=== PATIENT | female | born 1960 | race Caucasian/White ===

== ENCOUNTER 2018-01-07 11:50 | Emergency (ER) | payer BC, SELFPAY ==
[2018-01-07] VITALS (7 sets, daily range): BP systolic 121–138; BP diastolic 61–87; PULSE 70–85; RESP 14–22; TEMP 36.9; O2SAT 89–94
--- NOTE | 2018-01-07 12:07 | ED.GENADUL ---
Disposition Clinical Impression: COPD with exacerbation, Seasonal allergies Disposition: AGAINST MEDICAL ADVICE Condition: Fair Instructions: COPD (Chronic Obstructive Pulmonary Disease) (ED) Additional Instructions: Use the inhaler as needed and directed. Take the steroids until finished. Follow-up with your scheduled appointment with her primary care doctor in 2 weeks. Return immediately to the emergency department any worsening or new concerning symptoms. Prescriptions: Albuterol [Proair Hfa] 2 puff IH Q4H PRN PRN #1 inh PRN Reason: Prednisone 20 mg PO DIRECTED #12 tablet Medical Decision Making - Lab Data Results reviewed for labs ordered during visit: Yes 01/07/18 12:18 EKG shows normal sinus rhythm at 86 with normal axis, frequent PVCs, no STEMI. Nondiagnostic EKG. - Radiology Data Chest x-ray visualized and interpreted by myself in conjunction with radiology: Small left-sided pleural effusion, no other acute process - Medical Decision Making May Carolyn is a 57-year-old woman with a history of hypertension, hyperlipidemia, everyday smoker presenting to the emergency department with episode of lightheadedness, nausea, shortness of breath that resolved after she saw her PCP and was placed on oxygen when she was found to be hypoxic in the low 80s on room air. No history of O2 requirement. On exam patient is well and nontoxic appearing. Her lungs are clear to auscultation. She is satting 94-95% on 2 L of oxygen by nasal cannula. Her oxygen drops to 86% with good waveform when taken off of oxygen. Concern for pneumonia versus COPD versus PE versus other. Doubt ACS. Exam/history not consistent with sepsis, acute aortic pathology. Plan for EKG, chest x-ray, screening labs, telemetry. Will monitor and reassess. D-dimer elevated. Plan for CT chest. Trial of room air, and Pt's O2 sat drops to 86%. Pt feels somewhat more SOB with removal of O2. Pt placed back on O2. Lungs remain CTAB. CT chest shows COPD, o/w neg. Plan for trial duoneb, admission. Pt signed out to Dr. Gar at shift change with trial duoneb, admission pending. Clinical Impression: hypoxia Disposition: still a patient History of Present Illness - General Chief complaint: SOB Stated complaint: PR. VARELA Time Seen by Provider: 01/07/18 12:04 Source: patient, RN notes reviewed Mode of arrival: ambulatory Limitations: no limitations - History of Present Illness Initial comments: Kayla Leon is a 7-year-old man with history of hypertension, hyperlipidemia presenting to the emergency department with hypoxia. Patient reports that she was seeing her primary care doctor today in follow-up for chronic back pain that she has had over a year that is unchanged. She saw her PCP, and then went to the pharmacy to get her prescription filled. She was carrying a grocery bag and walking when all of a sudden she began to feel very lightheaded, nauseous, and short of breath. Patient reports that she return to her PCPs office, where she was found to be hypoxic in the low 80s on room air. She was started on 2 L of oxygen by nasal cannula, and her O2 sats improved into the low 90s and she was sent to the emergency department. Patient reports that she feels somewhat short of breath, but otherwise feels in her usual state of health. She has no pain other than her chronic back pain that is unchanged. She has had a cough for the past 2 weeks without fever. No nausea, vomiting, diarrhea. Has been eating and drinking normally. No recent travel. Never had similar symptoms in the past. - Related Data Acetaminophen 500 mg PO PRN 09/03/12 Diphenhydramine HCl [Benadryl] 25 mg PO DAILY PRN 08/14/16 Aspirin [Aspir 81] 81 mg PO DAILY tab 11/02/16 Metoprolol [Lopressor] 50 mg PO BID 90 Days #90 tab 09/06/17 Levothyroxine Sodium [Synthroid] 50 mcg PO DAILY 30 Days #30 tab-cap 11/09/17 Amlodipine/Valsartan [Amlodipine-Valsartan 5-160 mg] 1 each PO DAILY #90 tab 11/29/17 Albuterol [Proair Hfa] 2 puff IH Q4H PRN PRN #1 inh 01/07/18 Gabapentin 300 mg PO BID 21 Days #42 tab-cap 01/07/18 Prednisone 20 mg PO DIRECTED #12 tablet 01/07/18 Allergies Allergy/AdvReac Type Severity Reaction Status Date / Time hydrochlorothiazide Allergy Severe RASH Unverified 01/09/18 17:53 morphine Allergy Severe Unverified 01/09/18 17:53 simvastatin Allergy Intermediate rash Unverified 01/09/18 17:53 Penicillins Allergy Unknown Unverified 01/09/18 17:53 CANNABINOID Allergy Unknown Swelling/Ed Uncoded 09/20/15 15:26 hans Review of Systems Constitutional: denies: fever Eyes: denies: eye pain ENT: denies: ear pain, throat pain, dental pain Respiratory: cough, shortness of breath Cardiovascular: denies: chest pain, edema, syncope Endocrine: denies: increased hunger, increased thirst Gastrointestinal: nausea. denies: abdominal pain, vomiting, diarrhea Musculoskeletal: back pain (Chronic and unchanged). denies: arthralgia, myalgia Skin: denies: rash Neurological: denies: headache, weakness, numbness Past Medical History - Past Medical History Medical history: hyperlipidemia, hypertension - Social History Smoking status: current everyday smoker Alcohol use: heavy (2 beers per day) Drug use: none General Exam - General Limitations: no limitations General appearance: alert, in no apparent distress, other (Pleasant, well and nontoxic appearing, conversing normally) - Head Head exam: Present: atraumatic, normocephalic, normal inspection - Eye Eye exam: Absent: scleral icterus, conjunctival injection Pupils: Absent: irregular, unequal, miosis, mydriatic - ENT ENT exam: Present: mucous membranes moist - Neck Neck exam: Present: normal inspection - Respiratory Respiratory exam: Present: normal lung sounds bilaterally. Absent: respiratory distress, accessory muscle use - Cardiovascular Cardiovascular Exam: Present: regular rate, normal rhythm, normal heart sounds - Extremities Exam Extremities exam: Present: normal inspection. Absent: pedal edema, calf tenderness - Back Exam Back exam: Present: normal inspection. Absent: rash noted - Neurological Exam Neurological exam: Present: alert, other (Grossly nonfocal, normal tone). Absent: altered - Psychiatric Psychiatric exam: Present: normal affect, normal mood - Skin Skin exam: Present: warm, dry, intact, normal color. Absent: rash Course Vital Signs - 24 hr 01/07/18 12:00 Temperature 99.3 C H Pulse 70 Respiratory 18 Rate Blood Pressure 121/61 Pulse Oximetry 94 L
--- NOTE | 2018-01-07 12:46 | DI.REPORT_ITS ---
SYMPTOMS/DIAGNOSIS: SHORTNESS OF BREATH AP AND LATERAL CHEST: Comparison 09/03/17. The heart size and pulmonary vasculature are within normal limits. There is a tiny left pleural effusion. There is no evidence of a right pleural effusion. No pneumothorax is present. The lungs are clear. The bones appear intact. IMPRESSION: Tiny left pleural effusion.
[2018-01-07 13:07] LABS: Lactate-non-spesis 1.9 mmol/L (0.6-1.4)
[2018-01-07 13:14] LABS: Abs Immature Grans 0.02 k/cumm (0.0-0.09); Absolute Basophil Count 0.02 k/cumm (0.0-0.2); Absolute Lymphocyte Count 1.32 k/cumm (1.2-3.4); Absolute Monocyte Count 0.73 k/cumm (0.11-0.7); Absolute Neutrophil Count 5.53 k/cumm (1.2-6.7); Basophils % 0.3; Eosinophils % 1.3; HCT 35.6 % (36.0-46.0); HGB 12.3 g/dL (12.0-15.5); Immature Grans % 0.3; Lymphocytes % 17.1; Mean Corp. HGB Concentration 34.6 g/dL (32.0-36.0); Mean Corpuscular Hemoglobin 38.3 pg (27.0-33.0); Mean Corpuscular Volume 110.9 fL (80-95); Mean Platelet Volume 9.7 fL (8.0-11.0); Monocytes % 9.5; Neutrophils % 71.5; Platelet Count 181 x1000/uL (130-400); RBC 3.21 m/cumm (4.00-5.20); RBC Distribution Width 12.9 % (11.7-14.6); White Blood Cell Count 7.72 k/cumm (4.4-10.8)
[2018-01-07 13:33] LABS: ALT 40 U/L (12-78); AST 57 U/L (15-37); Albumin 3.6 g/dL (3.4-5.0); Alkaline Phosphatase 86 U/L (46-116); Anion Gap 6.3 mmol/L (3-11); BUN 9 mg/dL (7-18); Bilirubin, Total 0.5 mg/dL (0.2-1.0); CO2 31.7 mmol/L (21.0-32.0); Calcium 8.6 mg/dL (8.5-10.1); Chloride 94 mmol/L (98-107); Glucose 169 mg/dL (70-100); NT-proBNP 545 pg/mL; Potassium 3.1 mmol/L (3.5-5.1); Sodium 132 mmol/L (136-145); Total Protein 6.7 g/dL (6.4-8.2)
[2018-01-07 13:47] LABS: Troponin I < 0.02 ng/mL (0.00-0.06)
[2018-01-07 13:54] LABS: Diff Comment Diff Reviewed; Macrocytosis 2+
[2018-01-07 14:00] LABS: D-Dimer 856 ng/mlFEU (<500)
--- NOTE | 2018-01-07 14:03 | DI.RPTCT_ITS ---
SYMPTOMS/DIAGNOSIS: SHORTNESS OF BREATH, HYPOXIA CT SCAN OF THE CHEST: CT angiography was performed with multi slice acquisition and multi planar and 3D reconstruction. CT scan of the chest was performed according to the pulmonary embolus protocol. There are no priors for comparison. There is no evidence of a pulmonary embolus. The thoracic aorta is intact. No evidence of aneurysm or dissection is seen. The heart size is within normal limits. No significant pericardial effusion is seen. No evidence of right ventricular dysfunction is present. Coronary artery calcifications are seen. No significant axillary, mediastinal or hilar adenopathy is present. No pleural effusion or pneumothorax is identified. Moderate central lobular emphysematous changes are present in the lungs. No focal infiltrates are seen. No pulmonary nodules are identified. The tracheobronchial tree is unremarkable. There are mild atelectatic changes or scarring in the left lung base. Moderate degenerative changes are seen in the spine. There is a mild right convex curvature of the thoracic spine. IMPRESSION: 1. No evidence of a pulmonary embolus, thoracic aortic dissection or aneurysm. 2. Moderate COPD. The findings were discussed with the Emergency Department and Dr. Saba Edmond on the date of the examination.
[2018-01-07] MEDS: Omnipaque 350 MG/ML 100 ML BTL IJ (14:49)
[2018-01-07 14:56] LABS: Bilirubin Negative (Negative); Blood Negative (Negative); Clarity Clear; Glucose Negative (Negative); Ketones Negative (Negative); Leukocyte Esterase Trace (Negative); Nitrite Negative (Negative); Specific Gravity 1.015 (1.005-1.025)
[2018-01-07 15:03] LABS: Bacteria Few HPF (Negative); C & S Indicated? Yes; Casts Negative LPF (Negative); Crystals Negative HPF (Negative); Epithelial Cells Few HPF (Negative); Mucus Trace (Negative); RBC Negative (0-2); WBC 0-2 HPF (0-5)
[2018-01-07] MEDS: Albuterol/Ipratropium 3 ML UPD VIAL UPD (15:18)
--- NOTE | 2018-01-07 15:53 | ED.FU_ITS ---
Disposition Clinical Impression: COPD with exacerbation, Seasonal allergies Disposition: AGAINST MEDICAL ADVICE Condition: Fair Instructions: COPD (Chronic Obstructive Pulmonary Disease) (ED) Additional Instructions: Use the inhaler as needed and directed. Take the steroids until finished. Follow-up with your scheduled appointment with her primary care doctor in 2 weeks. Return immediately to the emergency department any worsening or new concerning symptoms. Prescriptions: Albuterol [Proair Hfa] 2 puff IH Q4H PRN PRN #1 inh PRN Reason: Prednisone 20 mg PO DIRECTED #12 tablet Medical Decision Making - Lab Data Laboratory Tests 01/07/18 01/07/18 01/07/18 12:50 12:50 12:50 WBC 7.72 RBC 3.21 L Hgb 12.3 Hct 35.6 L MCV 110.9 H MCH 38.3 H MCHC 34.6 RDW 12.9 Plt Count 181 MPV 9.7 Immature Gran % 0.3 Neutrophils % 71.5 Lymphocytes % 17.1 Monocytes % 9.5 Eosinophils % 1.3 Basophils % 0.3 Absolute Neutrophils 5.53 Absolute Lymphocytes 1.32 Absolute Monocytes 0.73 H Absolute Eosinophils 0.10 Absolute Basophils 0.02 Differential Comment Diff reviewed RBC Morphology See below Macrocytosis 2+ D-Dimer Sodium 132 L Potassium 3.1 L Chloride 94 L Carbon Dioxide 31.7 Anion Gap 6.3 BUN 9 Creatinine 0.80 Estimated GFR/1.73 m2 >= 60.00 Glucose 169 H Lactate 1.9 H Calcium 8.6 Total Bilirubin 0.5 AST 57 H ALT 40 Alkaline Phosphatase 86 Troponin I < 0.02 NT-Pro-B Natriuret Pep 545 H Total Protein 6.7 Albumin 3.6 Urine Color Urine Clarity Urine pH Ur Specific [place] Urine Protein Urine Ketones Urine Blood Urine Nitrite Urine Bilirubin Urine Urobilinogen Ur Leukocyte Esterase Urine RBC Urine WBC Ur Epithelial Cells Urine Crystals Urine Bacteria Urine Casts Urine Mucus Ur Culture Indicated? Urine Glucose 01/07/18 01/07/18 12:50 14:25 WBC RBC Hgb Hct MCV MCH MCHC RDW Plt Count MPV Immature Gran % Neutrophils % Lymphocytes % Monocytes % Eosinophils % Basophils % Absolute Neutrophils Absolute Lymphocytes Absolute Monocytes Absolute Eosinophils Absolute Basophils Differential Comment RBC Morphology Macrocytosis D-Dimer 856 H Sodium Potassium Chloride Carbon Dioxide Anion Gap BUN Creatinine Estimated GFR/1.73 m2 Glucose Lactate Calcium Total Bilirubin AST ALT Alkaline Phosphatase Troponin I NT-Pro-B Natriuret Pep Total Protein Albumin Urine Color Yellow Urine Clarity Clear Urine pH 8.0 Ur Specific [place] 1.015 Urine Protein Negative Urine Ketones Negative Urine Blood Negative Urine Nitrite Negative Urine Bilirubin Negative Urine Urobilinogen 4.0 H Ur Leukocyte Esterase Trace H Urine RBC Negative Urine WBC 0-2 Ur Epithelial Cells Few Urine Crystals Negative Urine Bacteria Few Urine Casts Negative Urine Mucus Trace Ur Culture Indicated? Yes Urine Glucose Negative - EKG Data -: EKG Interpreted by Me 01/07/18 1130: 86 bpm. Sinus. Frequent PVCs. No acute ST elevation or depression. 01/07/18 1210: 86 bpm. Sinus. - Radiology Data Radiology results: report reviewed, image reviewed Chest x-ray: Tiny left pleural effusion CT chest: Moderate COPD. No PE, dissection, or aneurysm. - Medical Decision Making Please see Dr. Edmond's note for initial presentation, exam and plan. Patient is a 57-year-old female with a history of hypertension and long- standing tobacco abuse who presents for shortness of breath and lightheadedness today. She was seen at PCP office today for chronic back pain and was found to have hypoxia in the low 80s and was sent here for evaluation. Patient's workup included a negative troponin, potassium 3.1, and elevated d- dimer, a chest x-ray which noted a tiny left pleural effusion and a CT chest which was negative for PE. Patient was also given a neb treatment per Dr. Edmond. Plan upon endorsement was to follow-up after neb treatment and possible admission for hypoxia and further determination for etiology of shortness of breath. Prior to my evaluation, patient had requested nurse to remove the IV and that she wanted to go home. Her lung sounds appear diminished throughout but there is no wheezing, crackles or rales. She is speaking in full sentences. She takes off the nasal cannula in the room, and her oxygen saturation decreases from 96% to 88%. I explained to patient that her long-standing tobacco abuse and CT chest which noted moderate COPD, that her symptoms can be due to a COPD exacerbation. Patient states that she thinks her symptoms are due to allergies. I explained to patient that allergies or viral process, can exacerbate COPD but her symptoms can be more likely due to a COPD exacerbation. I offered patient another neb treatment but she declines. She is also refusing to stay for second troponin and evaluation for home oxygen for respiratory therapy. I explained to patient with her oxygen level still in the mid 80s, we would recommend further observation and consideration of admission. Patient is refusing this. The risks of disability due to a possible serious cardiopulmonary etiology were explained and patient fully understands and demonstrates capacity to make decisions. AMA form signed. Given a dose of p.o. potassium. We will send home with a prescription for prednisone and albuterol. Patient initially declined these prescription for prednisone stating it had not worked in the past for a rash that she had. I explained that with COPD, a short course of steroids can likely help her symptoms. I also explained to patient that without further evaluation and admission, we cannot fully determine the etiology of her shortness of breath and that COPD is only 1 of the considerations. He has normal white blood cell count, no fever and what she describes her normal smoker's cough, so we will hold on antibiotics at this time. Temp reported in error but pt was afebrile. Care Signed Out By:: Dr. Bryon Edmond - Vital Signs Recent Vitals - 8H: Vital Signs - 8 hr 01/07/18 01/07/18 01/07/18 12:00 12:18 13:08 Temperature 210.7 F H Pulse 70 Respiratory 18 22 18 Rate Blood Pressure 121/61 Pulse Oximetry 94 L 89 L 01/07/18 13:10 Temperature Pulse Respiratory 18 Rate Blood Pressure Pulse Oximetry 89 L - Continuation of Care Continuation of Care Plan: Case endorsed to follow-up on patient response to neb treatment and plan for possible admission for hypoxia if symptoms do not improve and continued hypoxia.
[2018-01-07] MEDS: predniSONE 20 MG TAB 60 MG PO (16:04)
[2018-01-07] MEDS: Potassium Chloride 20 MEQ TABCR 40 MEQ PO (16:04)
--- NOTE | 2018-01-08 14:00 | PDOC.ERCMPRO ---
Care Management Progress Note 01/08-Kayla left the emergency department AMA last evening. This CM tried reaching out to Kayla but there was no answer on either of her numbers nor was their an answering machine.
== END 2018-01-07 16:38 | disposition left against medical advice (07) ==
PROVIDERS: Student in an Organized Health Care Education/Training Program; Emergency Provider Physician Assistant; PCP Family Medicine
DX: J44.1 Chronic obstructive pulmonary disease with (acute) exacerbation (principal); J30.2 Other seasonal allergic rhinitis; R09.02 Hypoxemia; J90 Pleural effusion, not elsewhere classified; R79.1 Abnormal coagulation profile; I10 Essential (primary) hypertension; F17.210 Nicotine dependence, cigarettes, uncomplicated; Z53.29 Procedure and treatment not carried out because of patient's decision for other reasons
CPT/HCPCS: 36415; 71275; 80053; 93005; 94640; 99285; 71046; 81003; 81015; 83605; 83880; 84484; 85025; 85379; 87086; 93010; J3490; J7512; J7620

== ENCOUNTER 2018-02-18 10:33 | Outpatient (CLI) | payer BC, SELFPAY ==
[2018-02-18 12:21] LABS: TSH (W/Ref FT4) 10.82 uIU/mL (0.358-3.74)
[2018-02-18 12:37] LABS: FREE T4 0.87 ng/dL (0.76-1.46)
== END 2018-02-18 10:53 ==
PROVIDERS: PCP Family Medicine; Visit Provider Family Medicine
DX: E03.9 Hypothyroidism, unspecified (principal)
CPT/HCPCS: 36415; 84439; 84443

== ENCOUNTER 2018-03-18 00:48 | Outpatient (CLI) | payer BC, SELFPAY ==
--- NOTE | 2018-03-18 10:27 | DI.MRI_ITS ---
SYMPTOMS/DIAGNOSIS: LEFT LEG PAIN, ? SCIATICA, NEUROPATHY, G62.9 MRI OF THE LUMBAR SPINE: Routine noncontrast examination. No priors for comparison. The conus medullaris has a normal appearance and location. At L 5 - S 1 there is no focal disc herniation, central spinal canal or neural foraminal stenosis. At L 4 - 5 there are degenerative endplate signal changes. There is loss of signal of the disc and a mild diffuse disc bulge. No central spinal canal or nerve root compression is seen. No neural foraminal stenosis is present. At L 3 - 4 there is a mild diffuse disc bulge. No focal disc herniation or central spinal canal stenosis is seen. There is disc desiccation present. There is mild narrowing of the left neural foramen but no compression of the exiting nerve root is seen. No right neural foraminal stenosis is seen. Mild degenerative endplate signal changes are present. At L 2 - 3 there are mild degenerative endplate signal changes and disc desiccation. No focal disc herniation, central spinal canal or neural foraminal stenosis is seen. At L 1 - 2 there is no focal disc herniation, central spinal canal or neural foraminal stenosis. Apart from the degenerative endplate signal changes the marrow signal is within normal limits. IMPRESSION: 1. No focal disc herniation, central spinal canal or nerve root compression is seen in the lumbar spine. 2. Multi-level degenerative changes in the lumbar spine.
== END 2018-03-18 01:08 ==
PROVIDERS: PCP Family Medicine; Visit Provider Psychiatry & Neurology Neurology
DX: M79.605 Pain in left leg (principal); M47.26 Other spondylosis with radiculopathy, lumbar region; G62.89 Other specified polyneuropathies
CPT/HCPCS: 72148

== ENCOUNTER 2018-04-08 10:55 | Outpatient (REF) | payer BC, SELFPAY | END 2018-04-08 11:15 | LOC: LBN 10:55 | PROVIDERS: PCP Family Medicine; Visit Provider Family Medicine | DX: Z11.59 Encounter for screening for other viral diseases (principal); Z78.9 Other specified health status | CPT/HCPCS: 87449 ==

== ENCOUNTER 2018-04-08 11:17 | Emergency (ER) | payer BC, SELFPAY ==
[2018-04-08 11:31] VITALS: BP 160/97; PULSE 101; RESP 16; TEMP 37.1; O2SAT 100
--- NOTE | 2018-04-08 11:40 | DI.CT_ITS ---
SYMPTOMS/DIAGNOSIS: DIFFUSE ABDOMINAL PAIN, LEFT UPPER QUADRANT AND LEFT LOWER QUADRANT > RIGHT UPPER QUADRANT AND RIGHT LOWER QUADRANT CT OF THE ABDOMEN AND PELVIS: There are no prior comparison exams. Images were performed from the lung bases through the ischial tuberosities after oral and IV contrast. The exam is somewhat limited by patient motion. The lung bases show mild respiratory motion. The heart size is normal. The liver, gallbladder, spleen and adrenals are unremarkable. The pancreas appears somewhat atrophic. There are a few small renal cysts. There is no hydronephrosis. There is mild diffuse wall thickening of the urinary bladder. No focal bladder mass or calculi are seen. There are numerous diverticula in the sigmoid colon. Diverticula are also seen elsewhere in the colon. The appendix appears normal. There is no evidence of diverticulitis. No small bowel dilatation is seen. The aorta shows calcification, but there is no evidence of an aneurysm. There are degenerative changes of the lumbar spine. The uterus and ovaries appear postmenopausal. IMPRESSION: Diverticulosis without evidence of diverticulitis. There is mild wall thickening of the urinary bladder. Clinical correlation is recommended.
--- NOTE | 2018-04-08 11:42 | W.ED.GENAD ---
Discharge Plan Disposition Patient Disposition: HOME Condition: Improving Discharge Details Chief Complaint: Nausea/Vomit/Diar Clinical Impression: Vomiting and diarrhea, UTI (urinary tract infection) Primary Care Provider: Chidi Mccormack ED Provider: Carla Gar Home Meds and New Rx's Prescriptions: New prochlorperazine maleate [Compazine] 10 mg tablet 10 mg PO Q8H PRN (Reason: nausea and vomiting) Qty: 6 RF: 0 ciprofloxacin HCl [Cipro] 500 mg tablet 500 mg PO BID 7 Days Qty: 14 RF: 0 Continue gabapentin 300 mg capsule 300 mg PO BID Qty: 90 RF: 11 acetaminophen 500 MG tablet 500 mg PO PRN RF: 0 diphenhydramine HCl [Benadryl] 25 MG capsule 25 mg PO DAILY PRNRF: 0 aspirin [Aspir-81] 81 MG tablet,delayed release (DR/EC) 81 mg PO DAILY RF: 0 amlodipine-valsartan 1 EACH tablet 1 ea PO DAILY Qty: 90 RF: 3 levothyroxine [Synthroid] 75 mcg tablet 75 mcg PO DAILY Qty: 90 RF: 3 metoprolol tartrate 50 mg tablet 50 mg PO BID Qty: 180 RF: 3 Discharge Instructions Instructions: Urinary Tract Infection in Women (ED), Acute Nausea and Vomiting (ED), Acute Diarrhea (ED) Additional Instructions: Drink plenty of fluids and get plenty of rest. Take the antinausea medication as needed and directed. Take the antibiotics until finished. Call your primary care doctor tomorrow to schedule follow-up appointment for reevaluation. Return immediately to the emergency department any worsening or new concerning symptoms. Discharge Data Discharge Date/Time-TO BE ENTERED AT DEPARTURE: 04/08/18 15:39 Discharge Physician: Carla Gar Medical Decision Making <Mickey Burrell NP - Last Filed: 04/09/18 10:18> Imaging and lab focused on wide differential to include acute pancreatitis, cholecysitis, diverticulitis, and appendicitis. Explained to patient she would be here awhile to complete testing. Will administer fluids and Zofran. CT scan with oral and IV contrast if kidneys support. <Carla Gar DO - Last Filed: 04/08/18 15:12> Please see Monroe Burrell's notes for initial presentation, exam and plan. Patient is a 57-year-old female who presents for generalized fatigue and weakness, diffuse body pain, vomiting and diarrhea over the past week. She does admit to chronic urinary frequency and concentrated urine . She admits to tactile fevers. She last vomited at 9 AM this morning and last episode of diarrhea here in the ED. Patient states she feels hungry and would like to eat. Blood pressure hypertensive, pulse 101, A. fib. Upon my initial interview room, patient requested her IV be taking on stating that she plans to go home today. Discussed with patient that her imaging is still pending. Labs reviewed and note a normal white blood cell count, hemoglobin. Sodium 128. Anion gap 11. Creatinine 0.63. Troponin negative. Lipase normal. Urinalysis notes greater than 50 WBCs, large leukocyte esterase, packed bacteria and few epithelial cells. Based on patient's symptoms patient, will treat for bladder infection. CT still pending. Will give another bolus IV fluids as well as a dose of Toradol and reassess. EKG notes a rate of 98, sinus, no acute ST elevation or depression, QTC 431. QRS 78. 1455 --CT notes diverticulosis without diverticulitis. There is mild bladder wall thickening which could correlate with the cystitis. Patient is requesting her IV out and would like to go home. Patient was given 2 L of normal saline. Patient was noted to have a sodium of 128, review of previous labs noted sodium 132. Patient states she feels better. Will treat for possible UTI versus pyelonephritis. Patient is allergic to penicillin and there is an interaction with Bactrim with her meds. Will give a dose of Cipro here and prescription for Compazine for home due to interaction of Cipro and Zofran. Patient instructed to follow-up with primary care doctor for reevaluation and return here if worse. HPI <Mickey Burrell NP - Last Filed: 04/09/18 10:18> General Date/Time Provider Initiated Documentation: 04/08/18 11:23. Limitations to Documentation: no limitations. Information obtained by: patient. History of Present Illness 57 year old F presents to the emergency department with the chief complaint of N/V/D, described as mild, HPI Narrative: 57 y/o female here with c/o N/V/D, abdominal pain, and generally not feeling well for a week. She was evaluated by PCP today and exam and history was concerned with acute abdomen. She reports to me one week of not feeling well. Symptoms include, abdominal pain, fever, dysuria, N/V/D, and body aches. She admits to drinking two beers a day but not able to drink for last week do to the N/V. She has missed work do to this illness at [employer]. Related Data Home Medications Medication Instructions Recorded Confirmed acetaminophen 500 mg PO PRN 09/03/12 04/08/18 diphenhydramine HCl [Benadryl] 25 mg PO DAILY PRN 08/14/16 04/08/18 aspirin [Aspir-81] 81 mg PO DAILY tab 11/02/16 04/08/18 amlodipine-valsartan 1 ea PO DAILY #90 tab 11/29/17 04/08/18 gabapentin 300 mg capsule 300 mg PO BID #90 tab-cap 03/12/18 04/08/18 levothyroxine 75 mcg tablet 75 mcg PO DAILY #90 tab 03/28/18 04/08/18 metoprolol tartrate 50 mg tablet 50 mg PO BID #180 tab 03/28/18 04/08/18 ciprofloxacin HCl [Cipro] 500 mg PO BID 7 Days #14 tab 04/08/18 prochlorperazine maleate 10 mg PO Q8H PRN #6 tab 04/08/18 [Compazine] Previous Rx's Medication Instructions Recorded amlodipine-valsartan 1 ea PO DAILY #90 tab 11/29/17 gabapentin 300 mg capsule 300 mg PO BID #90 tab-cap 03/12/18 levothyroxine 75 mcg tablet 75 mcg PO DAILY #90 tab 03/28/18 metoprolol tartrate 50 mg tablet 50 mg PO BID #180 tab 03/28/18 ciprofloxacin HCl [Cipro] 500 mg PO BID 7 Days #14 tab 04/08/18 prochlorperazine maleate 10 mg PO Q8H PRN #6 tab 04/08/18 [Compazine] Allergies Allergy/AdvReac Type Severity Reaction Status Date / Time hydrochlorothiazide Allergy Severe RASH Verified 04/08/18 11:41 morphine Allergy Severe stops Verified 04/08/18 11:41 breathing simvastatin Allergy Intermediate rash Verified 04/08/18 11:41 Penicillins Allergy Unknown unknown Verified 04/08/18 11:41 CANNABINOID Allergy Unknown Swelling/Ed Uncoded 04/08/18 11:41 hans General Stated Complaint: Nausea/Vomit/Diar JOLENE: 3 Review of Systems <Mickey Burrell NP - Last Filed: 04/09/18 10:18> Constitutional Reports body ache(s), Reports chills, Reports fever(s) and Reports poor appetite Eyes Reports system reviewed and no additional complaints, except as docu ENT Reports system reviewed and no additional complaints, except as docu Cardiovascular Reports system reviewed and no additional complaints, except as docu Respiratory Reports system reviewed and no additional complaints, except as docu Gastrointestinal Reports abdominal pain, Denies hematochezia, Denies coffee ground emesis, Reports diarrhea, Reports nausea, Reports vomiting and Denies hematemesis Musculoskeletal Reports myalgias and Reports arthralgias Neurologic Reports system reviewed and no additional complaints, except as docu Psychiatric Reports system reviewed and no additional complaints, except as docu Hematologic/Lymphatic Reports system reviewed and no additional complaints, except as docu Exam <Mickey Burrell NP - Last Filed: 04/09/18 10:18> Const General: cooperative Nutritional Appearance: cachectic Orientation: alert, awake and oriented x3 Other: Tries to be jocular in her history telling. [facility] Head: normal to inspection and atraumatic Ears: hearing grossly normal bilaterally, external ears normal and TM's normal bilaterally General nose exam: external nose normal and nares normal Mouth: lip normal, tongue normal, mucous membranes dry and moist mucous membranes abnormal Throat: posterior oropharynx abnormal erythema Eyes General: appearance normal, both eyes and all related structures Neck Neck: normal visual inspection, full ROM and no lymphadenopathy Resp Effort & Inspection: normal respiratory effort Auscultation: clear to auscultation bilaterally Cardio Jugular venous pressure: no JVD Rate: regular rate Rhythm: regular rhythm Heart Sounds: S1 normal, S2 normal and no murmurs GI Inspection: non-distended Palpation: soft and tender (Left>R) in the LLQ, in the RLQ, in the LUQ, in the RUQ and at McBurney's point; Harrison's sign negative and with no rebound tenderness Auscultation: hyperactive bowel sounds Skin General skin exam: no rashes or lesions noted Neuro General: alert, awake and oriented x3 Cognition: normal cognition Speech: speech normal Gait: normal gait Extrem General: normal to inspection, full ROM and normal capillary refill Psych Appearance: grossly normal Mental Status: mental status grossly normal Speech and Movement: speech and movement normal Mood: congruent mood Affect: normal affect Attitude: cooperative Thought Process: normal Thought Content: normal Insight: insight good Judgment: judgment good Course <Mickey Burrell NP - Last Filed: 04/09/18 10:18> Vital Signs Temperature 37.1 C 04/08/18 11:31 Pulse 101 H 04/08/18 11:31 Respiratory Rate 16 04/08/18 11:31 Blood Pressure 160/97 H 04/08/18 11:31 Pulse Oximetry 100 04/08/18 11:31 Temperature 37.1 C 04/08/18 11:31 Temperature Source Skin 04/08/18 11:31 Pulse 101 H 04/08/18 11:31 Respiratory Rate 16 04/08/18 11:31 Respiratory Effort Non-Labored 04/08/18 11:31 Blood Pressure 160/97 H 04/08/18 11:31 Blood Pressure Position Sitting 04/08/18 11:31 Pulse Oximetry 100 04/08/18 11:31 Oxygen Delivery Method Room Air 04/08/18 11:31 Oxygen Flow Rate 0 04/08/18 11:31 Pain Level 7 04/08/18 11:31 Sign Out <Mickey Burrell NP - Last Filed: 04/09/18 10:18> Sign Out Data: Sign Out Comment: Discussed case with Dr. Gar she agreed to continue care and disposition patient. Last updated by Mickey Burrell NP at 04/08/18 12:00
[2018-04-08] MEDS: Normal Saline 1,000 ML 1000 ML IV ×2 (12:00→13:48)
[2018-04-08 12:05] LABS: Abs Immature Grans 0.02 k/cumm (0.0-0.09); Absolute Basophil Count 0.02 k/cumm (0.0-0.2); Absolute Eosinophil Count 0.02 k/cumm (0.0-0.7); Absolute Monocyte Count 1.08 k/cumm (0.11-0.7); Absolute Neutrophil Count 8.41 k/cumm (1.2-6.7); Basophils % 0.2; Eosinophils % 0.2; HCT 40.8 % (36.0-46.0); HGB 14.3 g/dL (12.0-15.5); Immature Grans % 0.2; Lymphocytes % 11.2; Mean Corpuscular Hemoglobin 37.2 pg (27.0-33.0); Mean Corpuscular Volume 106.3 fL (80-95); Mean Platelet Volume 9.2 fL (8.0-11.0); Neutrophils % 78.2; Platelet Count 267 x1000/uL (130-400); RBC 3.84 m/cumm (4.00-5.20); RBC Distribution Width 12.6 % (11.7-14.6); White Blood Cell Count 10.75 k/cumm (4.4-10.8)
[2018-04-08] MEDS: Ondansetron 4 MG/2 ML VIAL IVP (12:05)
[2018-04-08 12:15] LABS: Lipase 117 U/L (73-393)
[2018-04-08 12:20] LABS: ALT 40 U/L (12-78); AST 52 U/L (15-37); Albumin 4.4 g/dL (3.4-5.0); Alkaline Phosphatase 106 U/L (46-116); Anion Gap 11.3 mmol/L (3-11); BUN 6 mg/dL (7-18); Bilirubin, Total 0.7 mg/dL (0.2-1.0); CO2 27.7 mmol/L (21.0-32.0); CREATININE 0.63 mg/dL (0.55-1.02); Calcium 10.1 mg/dL (8.5-10.1); Chloride 89 mmol/L (98-107); ETHANOL BLOOD 3.6 mg/dL (<3); Glucose 104 mg/dL (70-100); Magnesium 2.1 mg/dL (1.8-2.4); Potassium 4.7 mmol/L (3.5-5.1); Sodium 128 mmol/L (136-145); Total Protein 8.4 g/dL (6.4-8.2)
[2018-04-08 12:27] LABS: Diff Comment RBC Morph Reviewed; Macrocytosis 1+
[2018-04-08 12:29] LABS: Troponin I < 0.02 ng/mL (0.00-0.06)
[2018-04-08 12:34] LABS: Clarity Cloudy; Glucose Negative (Negative); Ketones Negative (Negative); Leukocyte Esterase Large (Negative); Nitrite Negative (Negative); Specific Gravity 1.015 (1.005-1.025)
[2018-04-08 12:35] LABS: Bacteria Packed HPF (Negative); Bilirubin Negative (Negative); Blood Small (Negative); C & S Indicated? Yes; Casts Negative LPF (Negative); Crystals Negative HPF (Negative); Epithelial Cells Few HPF (Negative); Mucus Moderate (Negative); WBC >50 HPF (0-5)
[2018-04-08] MEDS: Omnipaque 350 MG/ML 100 ML BTL IJ (13:12)
[2018-04-08] MEDS: Ketorolac 30 MG/ML VIAL IVP (14:54)
[2018-04-08 15:27] VITALS: BP 160/86; PULSE 96; RESP 12; TEMP 36.2; O2SAT 93
[2018-04-08] MEDS: Ciprofloxacin 500 MG TAB PO (15:27)
== END 2018-04-08 15:39 | disposition home or self-care (01) ==
PROVIDERS: Nurse Practitioner Family; Emergency Provider Physician Assistant; PCP Family Medicine
DX: R11.2 Nausea with vomiting, unspecified (principal); N39.0 Urinary tract infection, site not specified; B96.20 Unspecified Escherichia coli [E. coli] as the cause of diseases classified elsewhere; I10 Essential (primary) hypertension
CPT/HCPCS: 36415; 80053; 83690; 87077; 93005; 96361; 96374; 99284; 74177; 80320; 81003; 81015; 83735; 84484; 85025; 87086; 87186; 93010; J1885; J2405; J3490

== ENCOUNTER 2018-05-06 09:55 | Emergency (ER) | payer BC, SELFPAY ==
[2018-05-06] VITALS (39 sets, daily range): BP systolic 93–143; BP diastolic 52–108; PULSE 68–96; RESP 12–18; TEMP 36.7; O2SAT 93–100
--- NOTE | 2018-05-06 10:15 | W.ED.GENAD ---
Discharge Plan Disposition Patient Disposition: [facility] Condition: Serious Discharge Details Chief Complaint: AMS/LOC Clinical Impression: Acute hyponatremia, Hypokalemia, Hypomagnesemia Reason For Visit: FORD Primary Care Provider: Chidi Mccormack ED Provider: Neeru De Los Santos Home Meds and New Rx's Prescriptions: No Action gabapentin 300 mg capsule 300 mg PO BID Qty: 90 RF: 11 acetaminophen 500 MG tablet 500 mg PO PRN RF: 0 diphenhydramine HCl [Benadryl] 25 MG capsule 25 mg PO DAILY PRNRF: 0 aspirin [Aspir-81] 81 MG tablet,delayed release (DR/EC) 81 mg PO DAILY RF: 0 amlodipine-valsartan 1 EACH tablet 1 ea PO DAILY Qty: 90 RF: 3 levothyroxine [Synthroid] 75 mcg tablet 75 mcg PO DAILY Qty: 90 RF: 3 metoprolol tartrate 50 mg tablet 50 mg PO BID Qty: 180 RF: 3 prochlorperazine maleate [Compazine] 10 mg tablet 10 mg PO Q8H PRN (Reason: nausea and vomiting) Qty: 6 RF: 0 Discharge Data Discharge Date/Time-TO BE ENTERED AT DEPARTURE: 05/06/18 15:39 Medical Decision Making Patient presents today with chief complaint of altered mental status per friend's report. Brought in via EMS after they found her at home. Patient is alert and oriented x3. However, much of her history is unclear. Per the friends report at the scene, they reported the EMS that she is no longer working secondary to her alcohol abuse. However, the patient is adamant that she has been working yesterday and today. Patient is covered in feces which she reports is typical. She reports that she is covered in feces secondary to working and that this is typical at work. All nursing staff was cleaning the feces off of the patient, they noted a large area of erythema and skin breakdown of the patient's remington-area, her buttock and extending into the inner thighs bilaterally. Patient is unclear as to why this has been there. Reports that she did shower yesterday. Seems to be unaware of her skin changes. Patient was unable to stand without 2 person assist. This will need barrier cream and continued care. Laboratory evaluation significant for sodium of 108. Patient is currently receiving a banana bag. Magnesium and potassium are both low as well which will replenish IV. Still awaiting imaging. However, given the elect light abnormalities, and the patient's current state, she will need to be admitted. Will discuss case with hospitalist. Consulted with hospice regarding the patient's hyponatremia and admission. However, she advised that as we are unable to measure serum osmolality here the patient would need to be transferred to an outside facility so that she may receive hypertonic saline in a safe environment Head CT and chest x-ray reviewed by radiologist. He advises no acute abnormalities Spoke with [facility] regarding transfer who advised that they follow the serum sodium every few hours. They do not follow serum osmolality their facility. Advised that the patient should be replenished with a rate of 8 mEq every 24 hours and then hypertonic saline was indicated in this case. As the patient would not need serum osmolality measurement at the facility, I contacted our hospitalist once again who advised that this is against her practice and that she typically would always follow serum osmolality did not feel comfortable keeping the patient here. Consulted with [facility] once again. Patient has been accepted by Dr. Landers for symptomatic hyponatremia, continued monitoring and hypertonic saline treatment. While awaiting bed conformation, friends came in who advise that patient has not been ableot walk well on the LLE for several months. Has not been able to work for the past 3 weeks. She reports she has had multiple workups for this including imaging witout findings of source of weakness. She reports that she typically attends doctors appointment with the patient but that the patient has been becoming more private and withdrawn in recent weeks. They report she drinks daily but they are unsure of how much patient intakes, also unclear how much she smokes. HPI General Mode of arrival: EMS. Date/Time Provider Initiated Documentation: 05/06/18 10:14. Limitations to Documentation: altered mental status. Information obtained by: patient and EMS. HPI Narrative: Patient is a 57-year-old female, brought in via EMS, with chief complaint of altered mental status. Per EMS report, they were toned out after friends of the patient went to do a welfare check on her, and found her altered. EMS reports that there is a copious amounts of beer cans history about the house. Patient reports that she had 2 beers last night. However, the friends report that she had at least 6 large beers. She reports she only drinks 2 beers a day and only smokes 2 cigarettes a day. Patient has history of chewing tobacco dependence, hyperlipidemia, neuropathy, hyperlipidemia, hypertension, arterial occlusive disease, hypothyroidism. She reports that she feels like shit but is unable to describe what this actually means. She denies any pain. Denies any headache, visual changes, chest pain, shortness of breath. Denies any recent illness. Reports that she has a chronic cough associated with her smoking but denies any recent change in this. Related Data Home Medications Medication Instructions Recorded Confirmed acetaminophen 500 mg PO PRN 09/03/12 05/06/18 diphenhydramine HCl [Benadryl] 25 mg PO DAILY PRN 08/14/16 05/06/18 aspirin [Aspir-81] 81 mg PO DAILY tab 11/02/16 05/06/18 amlodipine-valsartan 1 ea PO DAILY #90 tab 11/29/17 05/06/18 gabapentin 300 mg capsule 300 mg PO BID #90 tab-cap 18 05/06/18 levothyroxine 75 mcg tablet 75 mcg PO DAILY #90 tab 03/28/18 05/06/18 metoprolol tartrate 50 mg tablet 50 mg PO BID #180 tab 03/28/18 05/06/18 prochlorperazine maleate 10 mg PO Q8H PRN #6 tab 04/08/18 05/06/18 [Compazine] Previous Rx's Medication Instructions Recorded amlodipine-valsartan 1 ea PO DAILY #90 tab 11/29/17 gabapentin 300 mg capsule 300 mg PO BID #90 tab-cap 03/12/18 levothyroxine 75 mcg tablet 75 mcg PO DAILY #90 tab 03/28/18 metoprolol tartrate 50 mg tablet 50 mg PO BID #180 tab 03/28/18 prochlorperazine maleate 10 mg PO Q8H PRN #6 tab 04/08/18 [Compazine] Allergies Allergy/AdvReac Type Severity Reaction Status Date / Time hydrochlorothiazide Allergy Severe RASH Verified 05/06/18 11:54 morphine Allergy Severe stops Verified 05/06/18 11:54 breathing simvastatin Allergy Intermediate rash Verified 05/06/18 11:54 Penicillins Allergy Unknown unknown Verified 05/06/18 11:54 CANNABINOID Allergy Unknown Swelling/Ed Uncoded 05/06/18 11:54 hans General Stated Complaint: AMS/LOC JOLENE: 2 Review of Systems Review of Systems Unobtainable due to mental condition [facility] Medical History Hyperlipidemia (Chronic 08/21/12) Neuropathy (Chronic 12/07/16) Hyperlipidemia (Chronic 08/21/12) Foot pain, left (Chronic 12/04/16) Essential hypertension (Chronic 01/22/12) Arterial occlusive disease (Chronic 12/04/16) Hypothyroidism (Chronic) Social History housing: apartment current occupational status: employed current occupation: [employer] [place], [place] pets and animals: Yes pets and animals: cat(s) frequency: 5-6 times per week duration: 15-30 minutes/day Smoking/Tobacco Use Status: Current every day alcohol intake: current alcohol intake frequency: 0-2 drinks per day Alcohol type: beer substance use type: does not use seatbelt use: always drive intox or ride w/ intox driver salesman: No working smoke detector in home: Yes fire extinguisher in home: Yes carbon monox detector in home: Yes Exam Const General: cooperative, comfortable, no acute distress, frail appearing, ill appearing chronically and intoxicated appearing Nutritional Appearance: cachectic and thin HENMT Head: normal to inspection and normocephalic Ears: hearing grossly normal bilaterally, external ears normal and TM's normal bilaterally General nose exam: external nose normal Mouth: oral mucosae normal, tongue normal, No moist mucous membranes abnormal (patient appears dry on exam), no trismus and No restricted motion Eyes General: appearance normal, both eyes and all related structures Visual Willis: normal visual willis by confrontation Alignment and Position: alignment normal Conjunctivae: conjunctivae normal Pupils: PERRL EOM: EOM intact bilaterally Neck Neck: normal visual inspection, full ROM, no lymphadenopathy, no meningeal signs and trachea midline Resp Effort & Inspection: normal respiratory effort, able to speak in complete sentences and no respiratory distress Auscultation: clear to auscultation bilaterally, no rales, no rhonchi and no wheezes Cardio Rate: regular rate Rhythm: regular rhythm Heart Sounds: S1 normal and S2 normal GI Inspection: normal to inspection, non-distended and no large pannus Palpation: soft, no hepatosplenomegaly, not firm, no guarding, not rigid and nontender Auscultation: normal bowel sounds General: other (see skin exam) Back/Spine/Pelvis Back: no CVA tenderness Skin General skin exam: erythema (patient has erythema and skin break down to bilateral inner thighs, buttock) Neuro General: alert, awake, oriented x3 (A&Ox3 but has very unusual thoughts, is confused), gait abnormal, tone abnormal, moves all extremities, no meningeal signs, no focal motor deficits and CN's II-XI intact bilaterally Cognition: abnormal cognition Speech: speech normal Gait: gait abnormal (patient unable to stand unassisted) Motor: muscle tone normal throughout, no pronator drift, no movement abnormalities noted and no fasciculations Sensory Exam: no sensory deficits noted Extrem General: abnormal to inspection (erythema to inner thighs as above), no pedal edema and no calf tenderness Psych Appearance: disheveled Course Vital Signs Temperature 36.7 C 05/06/18 10:05 Pulse 68 05/06/18 10:05 Respiratory Rate 18 05/06/18 10:05 Blood Pressure 143/108 H 05/06/18 10:05 Pulse Oximetry 100 05/06/18 10:05 Temperature 36.7 C 05/06/18 10:05 Temperature Source Temporal Artery Scan 05/06/18 10:05 Pulse 68 05/06/18 10:05 Respiratory Rate 18 05/06/18 10:05 Respiratory Effort Non-Labored 05/06/18 10:11 Blood Pressure 143/108 H 05/06/18 10:05 Blood Pressure Position Supine 05/06/18 10:05 Pulse Oximetry 100 05/06/18 10:05 Oxygen Delivery Method Room Air 05/06/18 10:05 Oxygen Flow Rate 0 05/06/18 10:05
--- NOTE | 2018-05-06 10:19 | ED.GENADUL_ITS ---
Discharge Plan Disposition Patient Disposition: [facility] Condition: Serious Discharge Details Chief Complaint: AMS/LOC Clinical Impression: Acute hyponatremia, Hypokalemia, Hypomagnesemia Reason For Visit: FORD Primary Care Provider: Chidi Mccormack ED Provider: Neeru De Los Santos Home Meds and New Rx's Prescriptions: No Action gabapentin 300 mg capsule 300 mg PO BID Qty: 90 RF: 11 acetaminophen 500 MG tablet 500 mg PO PRN RF: 0 diphenhydramine HCl [Benadryl] 25 MG capsule 25 mg PO DAILY PRNRF: 0 aspirin [Aspir-81] 81 MG tablet,delayed release (DR/EC) 81 mg PO DAILY RF: 0 amlodipine-valsartan 1 EACH tablet 1 ea PO DAILY Qty: 90 RF: 3 levothyroxine [Synthroid] 75 mcg tablet 75 mcg PO DAILY Qty: 90 RF: 3 metoprolol tartrate 50 mg tablet 50 mg PO BID Qty: 180 RF: 3 prochlorperazine maleate [Compazine] 10 mg tablet 10 mg PO Q8H PRN (Reason: nausea and vomiting) Qty: 6 RF: 0 Discharge Data Discharge Date/Time-TO BE ENTERED AT DEPARTURE: 05/06/18 15:39 Medical Decision Making Patient presents today with chief complaint of altered mental status per friend's report. Brought in via EMS after they found her at home. Patient is alert and oriented x3. However, much of her history is unclear. Per the friends report at the scene, they reported the EMS that she is no longer working secondary to her alcohol abuse. However, the patient is adamant that she has been working yesterday and today. Patient is covered in feces which she reports is typical. She reports that she is covered in feces secondary to working and that this is typical at work. All nursing staff was cleaning the feces off of the patient, they noted a large area of erythema and skin breakdown of the patient's remington-area, her buttock and extending into the inner thighs bilaterally. Patient is unclear as to why this has been there. Reports that she did shower yesterday. Seems to be unaware of her skin changes. Patient was unable to stand without 2 person assist. This will need barrier cream and continued care. Laboratory evaluation significant for sodium of 108. Patient is currently receiving a banana bag. Magnesium and potassium are both low as well which will replenish IV. Still awaiting imaging. However, given the elect light abnormalities, and the patient's current state, she will need to be admitted. Will discuss case with hospitalist. Consulted with hospice regarding the patient's hyponatremia and admission. However, she advised that as we are unable to measure serum osmolality here the patient would need to be transferred to an outside facility so that she may receive hypertonic saline in a safe environment Head CT and chest x-ray reviewed by radiologist. He advises no acute abnormalities Spoke with [facility] regarding transfer who advised that they follow the serum sodium every few hours. They do not follow serum osmolality their facility. Advised that the patient should be replenished with a rate of 8 mEq every 24 hours and then hypertonic saline was indicated in this case. As the patient would not need serum osmolality measurement at the facility, I contacted our hospitalist once again who advised that this is against her practice and that she typically would always follow serum osmolality did not feel comfortable keeping the patient here. Consulted with [facility] once again. Patient has been accepted by Dr. Landers for symptomatic hyponatremia, continued monitoring and hypertonic saline treatment. While awaiting bed conformation, friends came in who advise that patient has not been ableot walk well on the LLE for several months. Has not been able to work for the past 3 weeks. She reports she has had multiple workups for this including imaging witout findings of source of weakness. She reports that she typically attends doctors appointment with the patient but that the patient has been becoming more private and withdrawn in recent weeks. They report she drinks daily but they are unsure of how much patient intakes, also unclear how much she smokes. HPI General Mode of arrival: EMS . Date/Time Provider Initiated Documentation: 05/06/18 10:14 . Limitations to Documentation: altered mental status . Information obtained by: patient and EMS . HPI Narrative: Patient is a 57-year- old female, brought in via EMS, with chief complaint of altered mental status. Per EMS report, they were toned out after friends of the patient went to do a welfare check on her, and found her altered. EMS reports that there is a copious amounts of beer cans history about the house. Patient reports that she had 2 beers last night. However, the friends report that she had at least 6 large beers. She reports she only drinks 2 beers a day and only smokes 2 cigarettes a day. Patient has history of chewing tobacco dependence, hyperlipidemia, neuropathy, hyperlipidemia, hypertension, arterial occlusive disease, hypothyroidism. She reports that she feels like shit but is unable to describe what this actually means. She denies any pain. Denies any headache, visual changes, chest pain, shortness of breath. Denies any recent illness. Reports that she has a chronic cough associated with her smoking but denies any recent change in this. Related Data Home Medications Medication Instructions Recorded Confirmed acetaminophen 500 mg PO PRN 09/03/12 05/06/18 diphenhydramine HCl [Benadryl] 25 mg PO DAILY PRN 08/14/16 05/06/18 aspirin [Aspir-81] 81 mg PO DAILY tab 11/02/16 05/06/18 amlodipine-valsartan 1 ea PO DAILY #90 tab 11/29/17 05/06/18 gabapentin 300 mg capsule 300 mg PO BID #90 tab-cap 18 05/06/18 levothyroxine 75 mcg tablet 75 mcg PO DAILY #90 tab 03/28/18 05/06/18 metoprolol tartrate 50 mg tablet 50 mg PO BID #180 tab 03/28/18 05/06/18 prochlorperazine maleate 10 mg PO Q8H PRN #6 tab 04/08/18 05/06/18 [Compazine] Previous Rx's Medication Instructions Recorded amlodipine-valsartan 1 ea PO DAILY #90 tab 11/29/17 gabapentin 300 mg capsule 300 mg PO BID #90 tab-cap 03/12/18 levothyroxine 75 mcg tablet 75 mcg PO DAILY #90 tab 03/28/18 metoprolol tartrate 50 mg tablet 50 mg PO BID #180 tab 03/28/18 prochlorperazine maleate 10 mg PO Q8H PRN #6 tab 04/08/18 [Compazine] Allergies Allergy/AdvReac Type Severity Reaction Status Date / Time hydrochlorothiazide Allergy Severe RASH Verified 05/06/18 11:54 morphine Allergy Severe stops Verified 05/06/18 11:54 breathing simvastatin Allergy Intermediate rash Verified 05/06/18 11:54 Penicillins Allergy Unknown unknown Verified 05/06/18 11:54 CANNABINOID Allergy Unknown Swelling/Ed Uncoded 05/06/18 11:54 hans General Stated Complaint: AMS/LOC JOLENE: 2 Review of Systems Review of Systems Unobtainable due to mental condition [facility] Medical History Hyperlipidemia (Chronic 08/21/12) Neuropathy (Chronic 12/07/16) Hyperlipidemia (Chronic 08/21/12) Foot pain, left (Chronic 12/04/16) Essential hypertension (Chronic 01/22/12) Arterial occlusive disease (Chronic 12/04/16) Hypothyroidism (Chronic) Social History housing: apartment current occupational status: employed current occupation: [employer] [place], [place] pets and animals: Yes pets and animals: cat(s) frequency: 5-6 times per week duration: 15-30 minutes/day Smoking/Tobacco Use Status: Current every day alcohol intake: current alcohol intake frequency: 0-2 drinks per day Alcohol type: beer substance use type: does not use seatbelt use: always drive intox or ride w/ intox yard driver: No working smoke detector in home: Yes fire extinguisher in home: Yes carbon monox detector in home: Yes Exam Const General: cooperative, comfortable, no acute distress, frail appearing, ill appearing chronically and intoxicated appearing Nutritional Appearance: cachectic and thin HENMT Head: normal to inspection and normocephalic Ears: hearing grossly normal bilaterally, external ears normal and TM's normal bilaterally General nose exam: external nose normal Mouth: oral mucosae normal, tongue normal, No moist mucous membranes abnormal (patient appears dry on exam), no trismus and No restricted motion Eyes General: appearance normal, both eyes and all related structures Visual Willis: normal visual willis by confrontation Alignment and Position: alignment normal Conjunctivae: conjunctivae normal Pupils: PERRL EOM: EOM intact bilaterally Neck Neck: normal visual inspection, full ROM, no lymphadenopathy, no meningeal signs and trachea midline Resp Effort & Inspection: normal respiratory effort, able to speak in complete sentences and no respiratory distress Auscultation: clear to auscultation bilaterally, no rales, no rhonchi and no wheezes Cardio Rate: regular rate Rhythm: regular rhythm Heart Sounds: S1 normal and S2 normal GI Inspection: normal to inspection, non-distended and no large pannus Palpation: soft, no hepatosplenomegaly, not firm, no guarding, not rigid and nontender Auscultation: normal bowel sounds General: other (see skin exam) Back/Spine/Pelvis Back: no CVA tenderness Skin General skin exam: erythema (patient has erythema and skin break down to bilateral inner thighs, buttock) Neuro General: alert, awake, oriented x3 (A&Ox3 but has very unusual thoughts, is confused), gait abnormal, tone abnormal, moves all extremities, no meningeal signs, no focal motor deficits and CN's II-XI intact bilaterally Cognition: abnormal cognition Speech: speech normal Gait: gait abnormal (patient unable to stand unassisted) Motor: muscle tone normal throughout, no pronator drift, no movement abnormalities noted and no fasciculations Sensory Exam: no sensory deficits noted Extrem General: abnormal to inspection (erythema to inner thighs as above), no pedal edema and no calf tenderness Psych Appearance: disheveled Course Vital Signs Temperature 36.7 C 05/06/18 10:05 Pulse 68 05/06/18 10:05 Respiratory Rate 18 05/06/18 10:05 Blood Pressure 143/108 H 05/06/18 10:05 Pulse Oximetry 100 05/06/18 10:05 Temperature 36.7 C 05/06/18 10:05 Temperature Source Temporal Artery Scan 05/06/18 10:05 Pulse 68 05/06/18 10:05 Respiratory Rate 18 05/06/18 10:05 Respiratory Effort Non-Labored 05/06/18 10:11 Blood Pressure 143/108 H 05/06/18 10:05 Blood Pressure Position Supine 05/06/18 10:05 Pulse Oximetry 100 05/06/18 10:05 Oxygen Delivery Method Room Air 05/06/18 10:05 Oxygen Flow Rate 0 05/06/18 10:05
[2018-05-06] MEDS: Normal Saline 1,000 ML 1000 ML IV (10:45)
[2018-05-06 11:26] LABS: Ammonia 17 umol/L (11-32)
[2018-05-06 11:29] LABS: INR 0.9 (1.0-3.5); Prothrombin Time 9.4 sec (9.3-11.0)
[2018-05-06] MEDS: MAGNESIUM SULFATE 8.12 MEQ, MULTIVITAMIN 10 ML, THIAMINE 100 MG, FOLIC ACID 1 MG in Nor... 168.867 MG IV (11:34)
[2018-05-06 11:35] LABS: ALT 45 U/L (12-78); AST 53 U/L (15-37); Albumin 2.8 g/dL (3.4-5.0); Alkaline Phosphatase 68 U/L (46-116); Anion Gap 10.7 mmol/L (3-11); BUN 17 mg/dL (7-18); CO2 22.3 mmol/L (21.0-32.0); CREATININE 0.44 mg/dL (0.55-1.02); Calcium 7.7 mg/dL (8.5-10.1); Chloride 75 mmol/L (98-107); Glucose 113 mg/dL (70-100); Magnesium 1.5 mg/dL (1.8-2.4); Potassium 3.2 mmol/L (3.5-5.1); TSH 23.17 uIU/mL (0.358-3.74); Total Protein 5.4 g/dL (6.4-8.2)
[2018-05-06 11:36] LABS: Abs Immature Grans 0.01 k/cumm (0.0-0.09); Absolute Eosinophil Count 0.03 k/cumm (0.0-0.7); Absolute Lymphocyte Count 0.46 k/cumm (1.2-3.4); Absolute Monocyte Count 0.64 k/cumm (0.11-0.7); Absolute Neutrophil Count 2.91 k/cumm (1.2-6.7); Eosinophils % 0.7; HGB 11.6 g/dL (12.0-15.5); Immature Grans % 0.2; Lymphocytes % 11.4; Mean Corpuscular Hemoglobin 36.7 pg (27.0-33.0); Mean Corpuscular Volume 94.9 fL (80-95); Mean Platelet Volume 10.5 fL (8.0-11.0); Monocytes % 15.8; Neutrophils % 71.9; Platelet Count 118 x1000/uL (130-400); RBC 3.16 m/cumm (4.00-5.20); White Blood Cell Count 4.05 k/cumm (4.4-10.8)
[2018-05-06 11:40] LABS: Bilirubin Small (Negative); Blood Negative (Negative); Clarity Cloudy; Glucose Negative (Negative); Ketones 40 mg/dL (Negative); Leukocyte Esterase Negative (Negative); Nitrite Negative (Negative)
[2018-05-06 11:41] LABS: ETHANOL BLOOD < 3.0 mg/dL (<3); Sodium 108 mmol/L (136-145)
[2018-05-06 11:42] LABS: Troponin I < 0.02 ng/mL (0.00-0.06)
[2018-05-06 11:45] LABS: Diff Comment Diff Reviewed; Mean Corp. HGB Concentration 38.7 g/dL (32.0-36.0); RBC Morphology Normal
[2018-05-06 11:57] LABS: *AMPHETAMINES SCREEN URINE Negative (Negative); *BARBITURATES SCREEN URINE Negative (Negative); *BENZODIAZEPINES SCREEN URINE Negative (Negative); Cannabinoids THC Negative (Negative); Cocaine Screen,Urine Negative (Negative); METHADONE URINE SCREEN Negative (Negative); OPIATES URINE SCREEN Negative (Negative); Tricyclic Antidepressants Negative (Negative)
[2018-05-06 11:59] LABS: Bacteria Packed HPF (Negative); C & S Indicated? Yes
[2018-05-06] MEDS: MAGNESIUM SULFATE 1 GM/100 ML BAG IVPB (12:03)
[2018-05-06 12:15] LABS: Troponin I < 0.02 ng/mL (0.00-0.06)
[2018-05-06 12:17] LABS: FREE T4 0.72 ng/dL (0.76-1.46)
--- NOTE | 2018-05-06 12:40 | DI.RAD_ITS ---
SYMPTOMS/DIAGNOSIS: ALTERED MENTAL STATUS PA AND LATERAL CHEST: The heart is normal in size. The lungs are clear. The mediastinal structures and pleura appear intact. CONCLUSION: Normal chest.
--- NOTE | 2018-05-06 12:40 | DI.CT_ITS ---
SYMPTOMS/DIAGNOSIS: ALTERED MENTAL STATUS CRANIAL CT: A noncontrast cranial CT was performed. The ventricular system is normal in appearance. There is no evidence of an intracranial mass lesion. There is no evidence of a subdural or epidural hematoma. No focal areas of decreased attenuation are seen. CONCLUSION: Normal noncontrast cranial CT.
[2018-05-06] MEDS: POTASSIUM CHLORIDE 20 MEQ/100 ML BAG 50 MEQ IVPB (13:06)
--- NOTE | 2018-05-08 08:33 | NUR.NOTE ---
Pt transferred to [facility]. Urine culture report faxed to [phone] Note:
== END 2018-05-06 15:39 ==
PROVIDERS: Emergency Provider Physician Assistant; PCP Family Medicine
DX: E87.1 Hypo-osmolality and hyponatremia (principal); E87.6 Hypokalemia; E83.42 Hypomagnesemia; L98.411 Non-pressure chronic ulcer of buttock limited to breakdown of skin; F17.210 Nicotine dependence, cigarettes, uncomplicated; I10 Essential (primary) hypertension
CPT/HCPCS: 36415; 51701; 80053; 80307; 87077; 93005; 96361; 96365; 96366; 99285; 70450; 71046; 80320; 81003; 81015; 82140; 83735; 84439; 84443; 84484; 85025; 85610; 87086; 87186; 93010; J3475; J3480

== ENCOUNTER 2018-06-25 14:18 | Outpatient (REF) | payer BC, SELFPAY ==
[2018-06-25 18:45] LABS: BUN 6 mg/dL (7-18); CREATININE 0.68 mg/dL (0.55-1.02); Calcium 9.9 mg/dL (8.5-10.1); Chloride 84 mmol/L (98-107); Glucose 145 mg/dL (70-100); Potassium 4.6 mmol/L (3.5-5.1); TSH (W/Ref FT4) 6.84 uIU/mL (0.358-3.74)
[2018-06-25 18:58] LABS: Sodium 123 mmol/L (136-145)
[2018-06-25 19:15] LABS: FREE T4 1.23 ng/dL (0.76-1.46)
== END 2018-06-25 14:38 ==
LOC: LBN 14:18
PROVIDERS: PCP Family Medicine; Visit Provider Family Medicine
DX: E87.1 Hypo-osmolality and hyponatremia (principal); E03.9 Hypothyroidism, unspecified
CPT/HCPCS: 80048; 84439; 84443

== ENCOUNTER 2018-08-14 04:06 | Outpatient (RCR) | payer BC, SELFPAY | END 2018-09-10 23:59 | disposition home or self-care (01) | LOC: INF 04:06 | PROVIDERS: PCP Family Medicine; Visit Provider Family Medicine | DX: R69 Illness, unspecified (principal) ==

== ENCOUNTER 2018-09-05 10:02 | Inpatient (IN) | payer BC, SELFPAY ==
[2018-09-05] VITALS (12 sets, daily range): BP systolic 87–144; BP diastolic 49–88; PULSE 85–99; RESP 16–20; TEMP 36–36.8; O2SAT 96–100
--- NOTE | 2018-09-05 10:24 | W.ED.GENAD ---
Discharge Plan Disposition Patient Disposition: [facility] Condition: Stable Discharge Details Chief Complaint: GenMedical Clinical Impression: Hyponatremia, Hypothyroidism Primary Care Provider: Chidi Mccormack ED Provider: Mickey Culp Home Meds and New Rx's Prescriptions: No Action gabapentin 300 mg capsule 300 mg PO BID Qty: 90 RF: 11 acetaminophen 500 MG tablet 500 mg PO PRN RF: 0 diphenhydramine HCl [Benadryl] 25 MG capsule 25 mg PO DAILY PRNRF: 0 aspirin [Aspir-81] 81 MG tablet,delayed release (DR/EC) 81 mg PO DAILY RF: 0 levothyroxine [Synthroid] 75 mcg tablet 75 mcg PO DAILY Qty: 90 RF: 3 metoprolol tartrate 50 mg tablet 50 mg PO BID Qty: 180 RF: 3 amlodipine 5 mg tablet 5 mg PO DAILY Qty: 30 RF: 3 prochlorperazine maleate [Compazine] 10 mg tablet 10 mg PO Q8H PRN (Reason: nausea and vomiting) Qty: 6 RF: 0 Medical Decision Making 58 yo female with hy of hypothyroidism, hyponatremia, hld, htn, comes in with several months of slowly worsening general weakness and weight loss. She denies ches tpain, sob, fevers,chills, abdominal pain. She has chronic left foot pain of unknown etiology per pcp with multiple negative workups. Was sent in by pcp for her failure to thrive symptoms. She currently is caox4 without focal neuro deficits, no swelling of the legs, no calf tenderness, intact distal sensation and pulses. I suspect her symptoms are chronic but will evaluate for reccurrent hyponatremia that she had in april and also anemia, thyroid disorder, and obtain xray to eval for malgignancy and ct head to eval for possible sdh. no focal findings so doubt acute cva at this time, nih of 0 pt remains stable, labs show Na of 122, mag of 1.6, free t4 elevated at 22 and free t4 normal. Will admit for hyponatremia and general weakness Differential Diagnosis hyponatremia, anemia, electrolyte abnormality Medical Records Medical records reviewed: Yes I reviewed the patient's medical records. Imaging Data Radiologic Study: Attestation: I personally reviewed and interpreted this imaging study as follows: Imaging: X-Ray My impression: no acute findings Radiologic Study #2: Attestation: I personally reviewed and interpreted this imaging study as follows: Imaging: CT Scan Radiologist's impression: no acute findings per Dr. Smith on head ct Lab Data Lab results reviewed: Yes I reviewed the patient's lab results. HPI General Mode of arrival: wheelchair. Date/Time Provider Initiated Documentation: 09/05/18 10:24. Limitations to Documentation: no limitations. Information obtained by: patient. History of Present Illness 58 year old F presents to the emergency department with the chief complaint of general weakness, described as moderate, Patient started experiencing this month(s) (2) and it has been constant. No relieving factors improve symptom(s), No exacerbating factors reported . Patient did receive the following treatments prior to arrival, none Related Data Home Medications Medication Instructions Recorded Confirmed acetaminophen 500 mg PO PRN 09/03/12 09/05/18 diphenhydramine HCl [Benadryl] 25 mg PO DAILY PRN 08/14/16 09/05/18 aspirin [Aspir-81] 81 mg PO DAILY tab 11/02/16 09/05/18 gabapentin 300 mg capsule 300 mg PO BID #90 tab-cap 03/12/18 09/05/18 levothyroxine 75 mcg tablet 75 mcg PO DAILY #90 tab 03/28/18 09/05/18 metoprolol tartrate 50 mg tablet 50 mg PO BID #180 tab 03/28/18 09/05/18 prochlorperazine maleate 10 mg PO Q8H PRN #6 tab 04/08/18 09/05/18 [Compazine] amlodipine 5 mg tablet 5 mg PO DAILY #30 tab 05/23/18 09/05/18 Previous Rx's Medication Instructions Recorded gabapentin 300 mg capsule 300 mg PO BID #90 tab-cap 03/12/18 levothyroxine 75 mcg tablet 75 mcg PO DAILY #90 tab 03/28/18 metoprolol tartrate 50 mg tablet 50 mg PO BID #180 tab 03/28/18 prochlorperazine maleate 10 mg PO Q8H PRN #6 tab 04/08/18 [Compazine] amlodipine 5 mg tablet 5 mg PO DAILY #30 tab 05/23/18 Allergies Allergy/AdvReac Type Severity Reaction Status Date / Time hydrochlorothiazide Allergy Severe RASH Verified 09/05/18 09:31 morphine Allergy Severe stops Verified 04/25/19 09:31 breathing simvastatin Allergy Intermediate rash Verified 09/05/18 09:31 Penicillins Allergy Unknown unknown Verified 09/05/18 09:31 CANNABINOID Allergy Unknown Swelling/Ed Uncoded 09/05/18 09:31 hans General Stated Complaint: GenMedical JOLENE: 3 Review of Systems Review of Systems All systems reviewed & are unremarkable except as noted in HPI and below Constitutional Denies chills and Denies fever(s) ENT Denies change in voice Cardiovascular Denies chest pain and Denies dyspnea Respiratory Denies cough and Denies dyspnea Gastrointestinal Denies abdominal pain, Denies nausea and Denies vomiting Genitourinary Denies dysuria Musculoskeletal Denies joint swelling Integumentary/Breasts Denies rash Psychiatric Denies depression Endocrine Denies cold intolerance and Denies heat intolerance [facility] Medical History Continuous chewing tobacco dependence (Inactive 01/22/12) Hyperlipidemia (Chronic 08/21/12) Neuropathy (Chronic 12/07/16) Hyperlipidemia (Chronic 08/21/12) Foot pain, left (Chronic 12/04/16) Essential hypertension (Chronic 01/22/12) Arterial occlusive disease (Chronic 12/04/16) Hypothyroidism (Chronic) Social History Smoking/Tobacco Use Status: Current every day Alcohol Intake: current Alcohol Intake frequency: 0-2 drinks per day Alcohol type: beer Drug use: Never Substance use type: does not use Housing: apartment current occupation: [employer] [place], [place] Pets and animals: Yes Pets and animals: cat(s) What type of physical activity do you participate in: none Duration: 15-30 minutes/day Frequency: 5-6 times per week Seatbelt use: always Drive intox or ride w/intox hazmat tanker driver: No Working smoke detector in home: Yes Fire extinguisher in home: Yes Carbon monox detector in home: Yes Do you feel safe at home: Yes Exam Const General: no acute distress Orientation: alert HENLA Head: normal to inspection Ears: external ears normal General nose exam: external nose normal Mouth: moist mucous membranes Eyes General: appearance normal, both eyes and all related structures Neck Neck: normal visual inspection Resp Effort & Inspection: normal respiratory effort and able to speak in complete sentences Cardio Rate: regular rate Skin General skin exam: no rashes or lesions noted Neuro General: alert and oriented x3 Extrem General: normal to inspection Psych Mental Status: mental status grossly normal Course Vital Signs Temperature 36.0 C L 09/05/18 10:12 Pulse 88 09/05/18 10:12 Respiratory Rate 18 09/05/18 10:12 Blood Pressure 144/88 H 09/05/18 10:12 Pulse Oximetry 100 09/05/18 10:12 Temperature 36.0 C L 09/05/18 10:12 Temperature Source Skin 09/05/18 10:12 Pulse 88 09/05/18 10:12 Respiratory Rate 18 09/05/18 10:12 Blood Pressure 144/88 H 09/05/18 10:12 Blood Pressure Position Supine 09/05/18 10:12 Pulse Oximetry 100 09/05/18 10:12 Oxygen Delivery Method Room Air 09/05/18 10:12 Oxygen Flow Rate 0 09/05/18 10:12 Pain Level 10 09/05/18 10:12
--- NOTE | 2018-09-05 10:30 | DI.RAD_ITS ---
SYMPTOMS/DIAGNOSIS: COUGH PA AND LATERAL CHEST: The lungs are free of infiltrate. There is no pleural effusion. The cardiovascular structures are intact. SUMMARY: No evidence of acute cardiopulmonary disease.
--- NOTE | 2018-09-05 10:31 | ED.GENADUL_ITS ---
Discharge Plan Disposition Patient Disposition: [facility] INPATIENT Condition: Stable Discharge Details Chief Complaint: GenMedical Clinical Impression: Hyponatremia, Hypothyroidism Primary Care Provider: Chidi Mccormack ED Provider: Mickey Culp Home Meds and New Rx's Prescriptions: No Action gabapentin 300 mg capsule 300 mg PO BID Qty: 90 RF: 11 acetaminophen 500 MG tablet 500 mg PO PRN RF: 0 diphenhydramine HCl [Benadryl] 25 MG capsule 25 mg PO DAILY PRNRF: 0 aspirin [Aspir-81] 81 MG tablet,delayed release (DR/EC) 81 mg PO DAILY RF: 0 levothyroxine [Synthroid] 75 mcg tablet 75 mcg PO DAILY Qty: 90 RF: 3 metoprolol tartrate 50 mg tablet 50 mg PO BID Qty: 180 RF: 3 amlodipine 5 mg tablet 5 mg PO DAILY Qty: 30 RF: 3 prochlorperazine maleate [Compazine] 10 mg tablet 10 mg PO Q8H PRN (Reason: nausea and vomiting) Qty: 6 RF: 0 Medical Decision Making 58 yo female with hy of hypothyroidism, hyponatremia, hld, htn, comes in with several months of slowly worsening general weakness and weight loss. She denies ches tpain, sob, fevers,chills, abdominal pain. She has chronic left foot pain of unknown etiology per pcp with multiple negative workups. Was sent in by pcp for her failure to thrive symptoms. She currently is caox4 without focal neuro deficits, no swelling of the legs, no calf tenderness, intact distal sensation and pulses. I suspect her symptoms are chronic but will evaluate for reccurrent hyponatremia that she had in april and also anemia, thyroid disorder, and obtain xray to eval for malgignancy and ct head to eval for possible sdh. no focal findings so doubt acute cva at this time, nih of 0 pt remains stable, labs show Na of 122, mag of 1.6, free t4 elevated at 22 and free t4 normal. Will admit for hyponatremia and general weakness Differential Diagnosis hyponatremia, anemia, electrolyte abnormality Medical Records Medical records reviewed: Yes I reviewed the patient's medical records. Imaging Data Radiologic Study: Attestation: I personally reviewed and interpreted this imaging study as follows: Imaging: X-Ray My impression: no acute findings Radiologic Study #2: Attestation: I personally reviewed and interpreted this imaging study as follows: Imaging: CT Scan Radiologist's impression: no acute findings per Dr. Smith on head ct Lab Data Lab results reviewed: Yes I reviewed the patient's lab results. HPI General Mode of arrival: wheelchair . Date/Time Provider Initiated Documentation: 09/05/18 10:24 . Limitations to Documentation: no limitations . Information obtained by: patient . History of Present Illness 58 year old F presents to the emergency department with the chief complaint of general weakness, described as moderate, Patient started experiencing this month(s) (2) and it has been constant. No relieving factors improve symptom(s), No exacerbating factors reported . Patient did receive the following treatments prior to arrival, none Related Data Home Medications Medication Instructions Recorded Confirmed acetaminophen 500 mg PO PRN 09/03/12 09/05/18 diphenhydramine HCl [Benadryl] 25 mg PO DAILY PRN 08/14/16 09/05/18 aspirin [Aspir-81] 81 mg PO DAILY tab 11/02/16 09/05/18 gabapentin 300 mg capsule 300 mg PO BID #90 tab-cap 03/12/18 09/05/18 levothyroxine 75 mcg tablet 75 mcg PO DAILY #90 tab 03/28/18 09/05/18 metoprolol tartrate 50 mg tablet 50 mg PO BID #180 tab 03/28/18 09/05/18 prochlorperazine maleate 10 mg PO Q8H PRN #6 tab 04/08/18 09/05/18 [Compazine] amlodipine 5 mg tablet 5 mg PO DAILY #30 tab 05/23/18 09/05/18 Previous Rx's Medication Instructions Recorded gabapentin 300 mg capsule 300 mg PO BID #90 tab-cap 03/12/18 levothyroxine 75 mcg tablet 75 mcg PO DAILY #90 tab 03/28/18 metoprolol tartrate 50 mg tablet 50 mg PO BID #180 tab 03/28/18 prochlorperazine maleate 10 mg PO Q8H PRN #6 tab 04/08/18 [Compazine] amlodipine 5 mg tablet 5 mg PO DAILY #30 tab 05/23/18 Allergies Allergy/AdvReac Type Severity Reaction Status Date / Time hydrochlorothiazide Allergy Severe RASH Verified 09/05/18 09:31 morphine Allergy Severe stops Verified 04/25/19 09:31 breathing simvastatin Allergy Intermediate rash Verified 09/05/18 09:31 Penicillins Allergy Unknown unknown Verified 09/05/18 09:31 CANNABINOID Allergy Unknown Swelling/Ed Uncoded 09/05/18 09:31 hans General Stated Complaint: GenMedical JOLENE: 3 Review of Systems Review of Systems All systems reviewed & are unremarkable except as noted in HPI and below Constitutional Denies chills and Denies fever(s) ENT Denies change in voice Cardiovascular Denies chest pain and Denies dyspnea Respiratory Denies cough and Denies dyspnea Gastrointestinal Denies abdominal pain, Denies nausea and Denies vomiting Genitourinary Denies dysuria Musculoskeletal Denies joint swelling Integumentary/Breasts Denies rash Psychiatric Denies depression Endocrine Denies cold intolerance and Denies heat intolerance [facility] Medical History Continuous chewing tobacco dependence (Inactive 01/22/12) Hyperlipidemia (Chronic 08/21/12) Neuropathy (Chronic 12/07/16) Hyperlipidemia (Chronic 08/21/12) Foot pain, left (Chronic 12/04/16) Essential hypertension (Chronic 01/22/12) Arterial occlusive disease (Chronic 12/04/16) Hypothyroidism (Chronic) Social History Smoking/Tobacco Use Status: Current every day Alcohol Intake: current Alcohol Intake frequency: 0-2 drinks per day Alcohol type: beer Drug use: Never Substance use type: does not use Housing: apartment current occupation: [employer] [place], [place] Pets and animals: Yes Pets and animals: cat(s) What type of physical activity do you participate in: none Duration: 15-30 minutes/day Frequency: 5-6 times per week Seatbelt use: always Drive intox or ride w/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 Working smoke detector in home: Yes Fire extinguisher in home: Yes Carbon monox detector in home: Yes Do you feel safe at home: Yes Exam Const General: no acute distress Orientation: alert HENVA Head: normal to inspection Ears: external ears normal General nose exam: external nose normal Mouth: moist mucous membranes Eyes General: appearance normal, both eyes and all related structures Neck Neck: normal visual inspection Resp Effort & Inspection: normal respiratory effort and able to speak in complete sentences Cardio Rate: regular rate Skin General skin exam: no rashes or lesions noted Neuro General: alert and oriented x3 Extrem General: normal to inspection Psych Mental Status: mental status grossly normal Course Vital Signs Temperature 36.0 C L 09/05/18 10:12 Pulse 88 09/05/18 10:12 Respiratory Rate 18 09/05/18 10:12 Blood Pressure 144/88 H 09/05/18 10:12 Pulse Oximetry 100 09/05/18 10:12 Temperature 36.0 C L 09/05/18 10:12 Temperature Source Skin 09/05/18 10:12 Pulse 88 09/05/18 10:12 Respiratory Rate 18 09/05/18 10:12 Blood Pressure 144/88 H 09/05/18 10:12 Blood Pressure Position Supine 09/05/18 10:12 Pulse Oximetry 100 09/05/18 10:12 Oxygen Delivery Method Room Air 09/05/18 10:12 Oxygen Flow Rate 0 09/05/18 10:12 Pain Level 10 09/05/18 10:12
--- NOTE | 2018-09-05 10:32 | DI.CT_ITS ---
SYMPTOMS/DIAGNOSIS: ALTERED MENTAL STATUS CRANIAL CT: A noncontrast enhanced examination was performed. There is no evidence of an intra or extracerebral hemorrhage or mass. Atrophic changes consistent with age are demonstrated. The morales/white matter differentiation is well maintained. The ventricles are normal. There is no evidence of a skull fracture. There is no evidence of sinus disease. There is no evidence of a mastoid effusion. SUMMARY: No acute intracranial abnormality is demonstrated.
[2018-09-05 10:50] LABS: Bilirubin Moderate (Negative); Blood Trace-lysed (Negative); Clarity Clear; Glucose Negative (Negative); Ketones 80 mg/dL (Negative); Leukocyte Esterase Small (Negative); Nitrite Negative (Negative); Specific Gravity 1.015 (1.005-1.025)
[2018-09-05] MEDS: Acetaminophen 500 MG TAB 1000 MG PO (10:52)
[2018-09-05] MEDS: Normal Saline Flush 10 ML SYR IVP (10:53)
[2018-09-05] MEDS: Normal Saline 1,000 ML 1000 ML IV (10:56)
[2018-09-05 11:02] LABS: Bacteria Moderate HPF (Negative); C & S Indicated? No/Sq. Contamination; Casts Negative LPF (Negative); Crystals Negative HPF (Negative); Epithelial Cells Many HPF (Negative); Mucus Negative (Negative); RBC Negative (0-2)
[2018-09-05 11:20] LABS: Abs Immature Grans 0.01 k/cumm (0.0-0.09); Absolute Basophil Count 0.02 k/cumm (0.0-0.2); Absolute Eosinophil Count 0.02 k/cumm (0.0-0.7); Absolute Lymphocyte Count 0.45 k/cumm (1.2-3.4); Absolute Monocyte Count 0.67 k/cumm (0.11-0.7); Absolute Neutrophil Count 3.19 k/cumm (1.2-6.7); Basophils % 0.5; Eosinophils % 0.5; HGB 11.9 g/dL (12.0-15.5); Immature Grans % 0.2; Lymphocytes % 10.3; Mean Corp. HGB Concentration 36.1 g/dL (32.0-36.0); Mean Corpuscular Hemoglobin 37.2 pg (27.0-33.0); Mean Corpuscular Volume 103.1 fL (80-95); Mean Platelet Volume 9.4 fL (8.0-11.0); Monocytes % 15.4; Neutrophils % 73.1; Platelet Count 169 x1000/uL (130-400); RBC Distribution Width 13.1 % (11.7-14.6); White Blood Cell Count 4.36 k/cumm (4.4-10.8)
[2018-09-05 11:24] LABS: ALT 114 U/L (12-78); AST 168 U/L (15-37); Albumin 3.6 g/dL (3.4-5.0); Alkaline Phosphatase 201 U/L (46-116); Anion Gap 17.9 mmol/L (3-11); BUN 8 mg/dL (7-18); Bilirubin, Total 1.6 mg/dL (0.2-1.0); CO2 23.1 mmol/L (21.0-32.0); CREATININE 0.73 mg/dL (0.55-1.02); Calcium 9.4 mg/dL (8.5-10.1); Chloride 81 mmol/L (98-107); Glucose 165 mg/dL (70-100); Potassium 4.4 mmol/L (3.5-5.1); Total Protein 6.9 g/dL (6.4-8.2)
[2018-09-05 11:26] LABS: Magnesium 1.6 mg/dL (1.8-2.4); Sodium 122 mmol/L (136-145)
[2018-09-05 11:27] LABS: TSH (W/Ref FT4) 25.23 uIU/mL (0.358-3.74)
[2018-09-05] MEDS: MAGNESIUM SULFATE 2 GM/50 ML BAG IVPB (11:43)
[2018-09-05 11:57] LABS: ETHANOL BLOOD < 3.0 mg/dL (<3); FREE T4 0.88 ng/dL (0.76-1.46)
--- NOTE | 2018-09-05 15:01 | CHAPLAIN ---
Kayla jokingly asked if I would help her cut off her foot, when I visited. She said she doesn't have any family around here, but she's been in touch with some coworkers from her job at [employer] in [place]. She was happy to see [employer] Maker Helper Niya Cerna. Kayla told me she is not interested in home care chaplain visits, but she was pleasant and engaged in a conversation with me.
--- NOTE | 2018-09-05 15:22 | NUR.NOTE ---
pt provided with meal tray at 11am Nursing Note:
[2018-09-05] MEDS: Normal Saline 1,000 ML 120 ML IV (15:45)
[2018-09-05] MEDS: Enoxaparin 40 MG/0.4 ML SYR SC (16:49)
--- NOTE | 2018-09-05 16:51 | W.PM.HP.N ---
Date of service: 09/05/18 Time of Service: 16:51 Assessment and Plan (1) Hyponatremia: Current visit: No Status: Chronic Sodium low at 122 on admission, in the setting of hypothyroidism. Give gentle IV hydration with NS at 60 cc/hr as she only weighs 36.7 kg. Monitor sodium level closely to ensure the the level does not rise too quickly. Repeat Na level pending. (2) Hypothyroidism: Current visit: No Status: Chronic Increase synthroid from 75 mcg daily to 100 mcg daily. Contact pharmacy to verify that she has been taking her Synthroid appropriately at home, as her primary care provider notes indicate that there are questions surrounding whether she takes her medications as ordered. (3) Smoker: Current visit: No Status: Acute Smokes 1/2 ppd. Provide nicotine replacement. Encourage smoking cessation. (4) Foot pain, left: Current visit: No Status: Chronic Neuropathy vs claudication. Chronic. ABIs at [facility] in 2017 showed bilateral moderate arterial occlusive disease. Continue home gabapentin dose. Tylenol and tramadol for pain. (5) Essential hypertension: Current visit: No Status: Chronic Not currently hypertensive. Continue home amlodipine and metoprolol with hold parameters. Continue to monitor blood pressures. (6) Failure to thrive: Current visit: No Status: Acute Appears to be failing at home. AZL to buttock excoriation. Consult PT/OT. May require SNF for rehab prior to returning home. (7) DVT prophylaxis: Current visit: No Status: Acute Subcutaneous heparin. (8) Discharge planning issues: Current visit: No Status: Acute She is a full code. She appears to be failing at home. Consult physical therapy and Occupational Therapy. Correct hyponatremia. She may require transfer to halfway facility for rehab prior to returning home. This case was discussed with Dr. Quesada who is in agreement. History of Present Illness Chief Complaint: Generalize weakness, L foot pain, buttocks pain Narrative: Kalya Leon is a pleasant 58 year old female with a past medical history of hypertension, hyperlipidemia, tobacco dependence, left foot pain x2 years, moderate bilateral arterial vascular disease (ABIs [facility] vascular 2017), hypothyroidism and hyponatremia (108 in 04/2018). She has been followed for hyponatremia by her PCP. She followed up with her PCP in the office today and was found to have increased weakness, inability to care for herself at home, with a 9 pound weight loss in the last 2 months. She was referred to the ED. In the ED, she was found to have hyponatremia with a sodium level of 122, low chloride at 81, elevated anion gap at 17.9, renal function was normal, her magnesium was low at 1.6, her LFTs were elevated. Her TSH was high at 25.23, her free T4 was 0.88. Her hgb and hct are low but at baseline at 11.9 and 33. She went on to have chest x-ray to evaluate for malignancy, which was negative. She had a CT head which was negative. She is admitted to the Med/surg floor for further evaluation and managment. At the time of her presentation to the med/surg floor, she continues to report mild generalized weakness, she denies HAIR, nausea, vomiting, tremors, seizures, confusion. She reports that she has lost 9 pounds in 2 months. She reports that her bottom is sore, she has chronic left foot pain for which she takes gabapentin occasionally. She denies shortness of breath, coughing, wheezing, she is a 1/2 ppd smoker, she denies chest pain/pressure, palpitations, nausea, vomiting, diarrhea, dysuria, hematuria. Review of Systems Review of Systems All systems reviewed & are unremarkable except as noted in HPI and below PFSH Medical History Continuous chewing tobacco dependence (Inactive 01/22/12) Hyperlipidemia (Chronic 08/21/12) Neuropathy (Chronic 12/07/16) Hyperlipidemia (Chronic 08/21/12) Foot pain, left (Chronic 12/04/16) Essential hypertension (Chronic 01/22/12) Arterial occlusive disease (Chronic 12/04/16) Hypothyroidism (Chronic) Social History Smoking/Tobacco Use Status: Current every day Alcohol Intake: current Alcohol Intake frequency: 0-2 drinks per day Alcohol type: beer Drug use: Never Substance use type: does not use Housing: apartment current occupation: [employer] [place], [place] Pets and animals: Yes Pets and animals: cat(s) What type of physical activity do you participate in: none Duration: 15-30 minutes/day Frequency: 5-6 times per week Seatbelt use: always Drive intox or ride w/intox 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 Working smoke detector in home: Yes Fire extinguisher in home: Yes Carbon monox detector in home: Yes Do you feel safe at home: Yes Do you feel safe in your relationship?: Yes Meds Home Medications Medication Instructions Recorded Confirmed Type diphenhydramine HCl [Benadryl] 25 mg PO DAILY PRN 08/14/16 09/05/18 History aspirin [Aspir-81] 81 mg PO DAILY tab 11/02/16 09/05/18 History gabapentin 300 mg capsule 300 mg PO BID #90 tab-cap 03/12/18 09/05/18 Rx metoprolol tartrate 50 mg tablet 50 mg PO BID #180 tab 03/28/18 09/05/18 Rx amlodipine 5 mg tablet 5 mg PO DAILY #30 tab 05/23/18 09/05/18 Rx acetaminophen [Tylenol] 650 mg PO Q4H PRN PRN #0 tab 09/14/18 Rx calcium carbonate 500 mg PO BID #14 tab 09/14/18 Rx clotrimazole 60 g TOPICAL TID #0 g 09/14/18 Rx cyanocobalamin (vitamin B-12) 500 mcg PO DAILY #30 each 09/14/18 Rx folic acid 1 mg PO DAILY #0 tab 09/14/18 Rx ipratropium-albuterol 3 ml UPD Q6H PRN PRN #0 ml 09/14/18 Rx levothyroxine 100 mcg PO 0600 #0 tab 09/14/18 Rx magnesium oxide 800 mg PO BID #0 tab 09/14/18 Rx multivitamin 1 tab PO DAILY #30 tab 09/14/18 Rx nicotine 21 mg TRANSDERMAL DAILY #0 ea 09/14/18 Rx nicotine [Nicotrol] 30 cartridge INHALATION Q2H PRN 09/14/18 Rx PRN #0 ea omeprazole 20 mg PO DAILY@0730 #0 cap 09/14/18 Rx thiamine mononitrate (vit B1) 100 mg PO DAILY #0 tab 09/14/18 Rx [Vitamin B-1 (mononitrate)] tramadol 25 mg PO Q6H PRN PRN #10 tab 09/14/18 Rx vits A and D-white pet-lanolin 60 g TOPICAL TID #0 g 09/14/18 Rx zinc oxide 60 g TOPICAL TID #0 g 09/14/18 Rx Allergies Allergy/AdvReac Type Severity Reaction Status Date / Time hydrochlorothiazide Allergy Severe RASH Verified 09/05/18 09:31 morphine Allergy Severe stops Verified 09/05/18 09:31 breathing simvastatin Allergy Intermediate rash Verified 09/05/18 09:31 Penicillins Allergy Unknown unknown Verified 09/05/18 09:31 CANNABINOID Allergy Unknown Swelling/Ed Uncoded 09/05/18 09:31 hans Exam Narrative Exam Narrative: General: 58 year old female, appears older than stated age, awake and alert, sitting up in bed, answers questions appropriately. Skin: entire buttocks with intense erythema, excoriation, with satelite lesions, no active drainage, unclear if drainage on pad is from buttocks. HEENT: normocephalic, atraumatic. PERRLA, EOMI, mucous membranes moist. Neck: supple, no JVD. Cardiovascular: Heart has regular rate and rhythm, no murmur appreciated. Respiratory: Respirations even and unlabored, lung sounds clear to auscultation throughout. Gastrointestinal: Normoactive bowel sounds, abdomen thin, soft, nontender on palpation, no masses appreciated. Extremities: No clubbing, cyanosis or edema. Fingernails appear unkempt. Bilateral calves without erythema, swelling, tenderness. Left foot exquisitely tender to touch. Bilateral pedal pulses +1. Results Labs : 09/14/18 06:18 09/14/18 06:18 Laboratory Results - last 24 hr 09/05/18 09/05/18 09/05/18 10:25 10:45 10:45 WBC RBC Hgb Hct MCV MCH MCHC RDW Plt Count MPV Immature Gran % Neutrophils % Lymphocytes % Monocytes % Eosinophils % Basophils % Absolute Neutrophils Absolute Lymphocytes Absolute Monocytes Absolute Eosinophils Absolute Basophils Sodium 122 L* Potassium 4.4 Chloride 81 L Carbon Dioxide 23.1 Anion Gap 17.9 H BUN 8 Creatinine 0.73 Estimated GFR/1.73 m2 >= 60.00 Glucose 165 H Calcium 9.4 Magnesium 1.6 L Total Bilirubin 1.6 H AST 168 H ALT 114 H Alkaline Phosphatase 201 H Total Protein 6.9 Albumin 3.6 TSH Free T4 Urine Color Yellow Urine Clarity Clear Urine pH 6.0 Ur Specific [place] 1.015 Urine Protein 100 H Urine Ketones 80 H Urine Blood Trace-lysed H Urine Nitrite Negative Urine Bilirubin Moderate H Urine Urobilinogen 1.0 H Ur Leukocyte Esterase Small H Urine RBC Negative Urine WBC 10-20 Ur Epithelial Cells Many Urine Crystals Negative Urine Bacteria Moderate Urine Casts Negative Urine Mucus Negative Ur Culture Indicated? No/sq. contamination Urine Glucose Negative Ethyl Alcohol 09/05/18 09/05/18 09/05/18 10:45 10:45 10:45 WBC 4.36 L RBC 3.20 L Hgb 11.9 L Hct 33.0 L MCV 103.1 H MCH 37.2 H MCHC 36.1 H RDW 13.1 Plt Count 169 MPV 9.4 Immature Gran % 0.2 Neutrophils % 73.1 Lymphocytes % 10.3 Monocytes % 15.4 Eosinophils % 0.5 Basophils % 0.5 Absolute Neutrophils 3.19 Absolute Lymphocytes 0.45 L Absolute Monocytes 0.67 Absolute Eosinophils 0.02 Absolute Basophils 0.02 Sodium Potassium Chloride Carbon Dioxide Anion Gap BUN Creatinine Estimated GFR/1.73 m2 Glucose Calcium Magnesium Total Bilirubin AST ALT Alkaline Phosphatase Total Protein Albumin TSH 25.23 H Free T4 0.88 Urine Color Urine Clarity Urine pH Ur Specific [place] Urine Protein Urine Ketones Urine Blood Urine Nitrite Urine Bilirubin Urine Urobilinogen Ur Leukocyte Esterase Urine RBC Urine WBC Ur Epithelial Cells Urine Crystals Urine Bacteria Urine Casts Urine Mucus Ur Culture Indicated? Urine Glucose Ethyl Alcohol < 3.0 Last Vital Signs Temp 36.3 C L 09/05/18 13:48 Pulse 99 H 09/05/18 13:48 Resp 20 09/05/18 13:48 BP 122/76 09/05/18 13:48 Pulse Ox 96 09/05/18 13:48
[2018-09-05 17:47] LABS: Sodium 120 mmol/L (136-145)
[2018-09-05] MEDS: Nicotine 14 MG/24 HR PATCH TD (18:19)
[2018-09-05] MEDS: traMADol 50 MG TAB 25 MG PO (18:19)
--- NOTE | 2018-09-05 19:33 | NUR.NOTE ---
Nursing Note: Pt to [facility] floor from ER at 1355 on stretcher. Pt is A&Ox3. VSS. C/O pain in Left foot. MD aware. Pt familiarized with hospital environment. Call kumar within reach; pt reliable to ring for assistance when needed. RN will continue to monitor.
[2018-09-05] MEDS: Metoprolol 50 MG TAB PO (19:45)
[2018-09-05] MEDS: Gabapentin 300 MG CAP PO (19:45)
[2018-09-05 21:39] LABS: Sodium, Urine 6 mmol/L
[2018-09-05 23:35] LABS: Sodium 121 mmol/L (136-145)
[2018-09-06 00:06] VITALS: BP 95/57; PULSE 72; RESP 18; TEMP 37; O2SAT 95
[2018-09-06] MEDS: Normal Saline 1,000 ML 120 ML IV ×3 (00:07→15:08)
[2018-09-06] MEDS: traMADol 50 MG TAB 25 MG PO ×4 (00:17→21:08)
[2018-09-06 03:00] VITALS: BP 96/65; PULSE 82; RESP 16; TEMP 37.2; O2SAT 95
[2018-09-06] MEDS: Levothyroxine 100 MCG TAB PO (05:18)
[2018-09-06 07:03] LABS: HCT 24.1 % (36.0-46.0); HGB 8.3 g/dL (12.0-15.5); Mean Corp. HGB Concentration 34.4 g/dL (32.0-36.0); Mean Corpuscular Hemoglobin 36.2 pg (27.0-33.0); Mean Corpuscular Volume 105.2 fL (80-95); Mean Platelet Volume 9.7 fL (8.0-11.0); Platelet Count 143 x1000/uL (130-400); RBC 2.29 m/cumm (4.00-5.20); RBC Distribution Width 13.4 % (11.7-14.6); White Blood Cell Count 3.17 k/cumm (4.4-10.8)
[2018-09-06 07:22] LABS: Iron 106 ug/dL (50-175); Magnesium 1.6 mg/dL (1.8-2.4); Total Iron Binding Capacity 113 ug/dL (250-450); Transferrin Sat 94 % (15-50)
[2018-09-06 07:25] VITALS: BP 120/73; PULSE 84; RESP 20; TEMP 36.9; O2SAT 94
[2018-09-06 07:46] LABS: Folate 5.7 ng/mL (8.6-20.0); Vitamin B12 698 pg/mL (193-986)
[2018-09-06] MEDS: Nicotine 14 MG/24 HR PATCH TD (07:46)
[2018-09-06] MEDS: Metoprolol 50 MG TAB PO (07:46)
[2018-09-06] MEDS: Gabapentin 300 MG CAP PO ×2 (07:46→19:40)
[2018-09-06] MEDS: Aspirin E.C. 81 MG TABEC PO (07:46)
[2018-09-06] MEDS: amLODIPine 5 MG TAB PO (07:46)
[2018-09-06] MEDS: Acetaminophen 325 MG TAB PO ×3 (07:52→21:08)
[2018-09-06 07:53] LABS: ALT 68 U/L (12-78); AST 80 U/L (15-37); Albumin 2.6 g/dL (3.4-5.0); Alkaline Phosphatase 135 U/L (46-116); Anion Gap 3.6 mmol/L (3-11); BUN 12 mg/dL (7-18); Bilirubin, Total 0.6 mg/dL (0.2-1.0); CO2 28.4 mmol/L (21.0-32.0); CREATININE 0.54 mg/dL (0.55-1.02); Calcium 8.2 mg/dL (8.5-10.1); Chloride 91 mmol/L (98-107); Glucose 104 mg/dL (70-100); Potassium 4.4 mmol/L (3.5-5.1)
[2018-09-06 08:04] LABS: Sodium 123 mmol/L (136-145)
[2018-09-06 08:05] LABS: Ferritin 1962 ng/mL (8-388)
[2018-09-06 10:30] VITALS: O2SAT 93
[2018-09-06] MEDS: Folic Acid 1 MG TAB PO (10:35)
[2018-09-06] MEDS: Thiamine 100 MG TAB PO (10:35)
[2018-09-06] MEDS: Multivitamin TAB 1 TAB PO (10:36)
--- NOTE | 2018-09-06 11:29 | PHARADMIT ---
Addendum entered by Elijah Joseph III 09/12/18 14:13: Pharmacy Note Subjective Sodium low again today(127), NS IVF restarted. Heme occult continues negative. Objective VS-OK K+3.7 Cl-92 H&H-8.6/25.7 Plts-317 Assessment PO Levaquin continues Plan Plan is for patient to go to [facility] or Sunday, or Swing bed here. Addendum entered by Elijah Joseph III 09/11/18 15:43: Pharmacy Note Subjective Nicotine addict, patch increased to 21mg, using inhaler too. CIWA dc'd Heme occult negative Objective VS-OK pain: 12/21, Na-130 Mag-2.1 H&H-8.8/27.2 Assessment Has Levaquin for UTI Plan Awaiting discharge to SNF. 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 Addendum entered by Maryam Tolliver 09/10/18 14:41: Pharmacy Note Subjective chronic anemia, iron levels good/high even though H/H low, requires oxygen, smoker Objective VS good, CIWA:2 (scale to be dc'd), weight steady 46.1kg Na++ 130, K+ 4.1, Mag 1.6, H/H 8.1/25.1 Micro urine: >100K Gram neg and some Gram positive Assessment Podiatry consult for L foot pain: Celestone/Bupivicaine injection for possible neuroma done 09/09 Lachydrin to apply daily to dry skin Chest xray: development of small bilateral pleural effusions ?pneumonia Lasix IV x1, Mag 2gram IV x1 Cipro changed to Levaquin to cover both Urine and lung using Nicotrol inhaler per provider, Hyponatremic at baseline, IVF's dc'd Plan awaiting SNF bed availability, check Micro sensitivities Addendum entered by Maya Mcgrath 09/06/18 12:51: CIWA PROTOCOL STARTED Original Note: Admission Pharmacy Clinical Review WEAKNESS, HYPONATREMIA Code Status Full Code Current Weight 39.1 kg Renally Cleared and Narrow Therapeutic Index Meds CRCL ~46ML/MIN QTc Value / Action Taken NA BP Control, Fever 120/73 AFEBRILE Electrolytes reviewed Na 123, Mag 1.6, DVT Prophylaxis enoxaparin Opiate Usage / Scheduled Bowel Regimen Ordered no/prn Plt/SCr for Heparin / Enoxaparin 143/0.54 INR for Warfarin na H/H stable, WBC/Bands 8.3/24.1 wbc 3.17 Antibiotic appropriateness na Cultures and Sensitivities na Surgical ABX d/c within 24 hr na DM control / Insulin Dosing na Heart Failure (Check EF%) (MERLENE's, B-Block, Diuretics) na IV to PO Switch Home Meds Reviewed Home Meds Not Ordered all ordered Comments levothyroxine dose increased on admission
--- NOTE | 2018-09-06 11:41 | PT.INIE ---
Date of service: 09/06/18 Time of Service: 11:08 PT Notes Inpatient Physical Therapy Evaluation Date: 09/06/2018 Referring Doctor: Glenda Simeon NP PT Orders: PT CONSULT: Generalized weakness, hypothyroidism, hyponatremia, falling at home Precautions: Fall. Standard. Patient Profile/Admitting Diagnosis: Orders received for this 4-year-old female who presented to the ED with chief complaints of generalized weakness, left foot pain, and buttock pain. Patient is diagnosed with hyponatremia, falling, failure to thrive. PMHX: Medical History Continuous chewing tobacco dependence (Inactive 01/22/12) Hyperlipidemia (Chronic 08/21/12) Neuropathy (Chronic 12/07/16) Hyperlipidemia (Chronic 08/21/12) Foot pain, left (Chronic 12/04/16) Essential hypertension (Chronic 01/22/12) Arterial occlusive disease (Chronic 12/04/16) Hypothyroidism (Chronic) Social History/Home Situation: Patient lives at home anyone for her, rails in both sides. She states she is independent with all aspects of ADLs without assistive ambulatory devices nor adaptive equipment. She reports she has worked for a long time at [employer], third shift. She does not drive. She further states that she is currently on medical leave back home and resume work. Equipment Owned/DME: None. Subjective: Patient agreeable to a PT consult. She denies any headaches and dizziness. Does report pain on her left foot that she states has been there for quite a while now. She said she takes Gabapentin to manage the pain. Objective: General Observation: Patient seen resting in bed. IV in the right UE. Dark brown thickened circumscribed discoloration on the plantar aspect of the lateral metatarsal head areas observed which appear to be callus formation. Both areas are non-blanchable. Mental Status: Alert and oriented x3 Pain: Patient reports 10/10 pain on the left foot despite recent intake of Tramadol and Tylenol about 3 hours ago. Nurse updated about complaint. Vital Signs: 103/63 mmHg, 89% on room air, 74 bpm ROM: Right Upper Extremity: Shoulder Flexion WFL. Shoulder abduction WFL. Elbow flexion WFL. Wrist flexion WFL. Functional opening and closing of hand WFL. Left Upper Extremity: Shoulder Flexion WFL. Shoulder abduction WFL. Elbow flexion WFL. Wrist flexion WFL. Functional opening and closing of hand WFL. Right Lower Extremity: Hip flexion WFL. Hip abduction WFL. Knee flexion WFL. Ankle dorsiflexion WFL. Ankle plantarflexion WFL. Left Lower Extremity: Hip flexion WFL. Hip abduction WFL. Knee flexion WFL. Ankle dorsiflexion WFL. Ankle plantarflexion WFL. Strength: STRENGTH: Right Upper Extremity: Shoulder flexors 4/5. Shoulder abductors 4/5. Elbow flexors 4/5. Elbow extensors 4/5. Virtual Assistant [employer] strong. Left Upper Extremity: Shoulder flexors 4/5. Shoulder abductors 4/5. Elbow flexors 4/5. Elbow extensors 4/5. Virtual Assistant [employer] strong. Right Lower Extremity:Hip flexors 3+/5. Hip abductors 3+ /5. Knee flexors 3+/5. Knee extensors 4-/5. Ankle dorsiflexors 4/5. Ankle plantarflexors 4/5. Left Lower Extremity: Hip flexors 3+/5. Hip abductors 3+ /5. Patient was able to tolerate minimal resistance provided to hip and knee extension in supine. Knee flexors 3+/5. Knee extensors 4-/5. Ankle dorsiflexors 4/5. Ankle plantarflexors 4/5. Sensation: Intact as to pain and pressure to B LE. BED MOBILITY LEVELS/TRANSFERS Rolling standby assist Supine to sit stand by assist Sit to supine standby assist Sit to stand standby assist Stand to sit standby assist Bed to chair NT Chair to bed NT Gait: NT. Patient reports 10/ on left foot. There is has been notified and will plan on doing gait training with premedication for pain. Balance: Static Sitting: Good Dynamic Sitting: Good Static Standing: Poor Dynamic Standing: Poor Special Tests: Mobility Limitations Standardized Measure [facility] AM-PAC 6 clicks Basic Mobility Inpatient Short Form: Raw Score: 13 CMS Score: 65% deficit Informed Consent/Education: Patient instructed in purpose of PT consult and plan of care. Assessment: Patient is a 58 year old female referred to physical therapy services with the diagnosis of hyponatremia, generalized weakness, left foot pain, buttock pain.. Patient presents with clinical signs and symptoms consistent with current/admitting diagnoses that have resulted to mobility limitations, gait instability, generalized weakness, and impairment of motor control as demonstrated by the following impairment level findings: 1. Decreased strength to B LE major muscle groups 2. Impaired sitting/standing balance 3. Impaired activity tolerance 4. Left foot pain at 10/10 Impairments are contributing to the following functional limitations: 1. Dependent bed mobility skills 2. Increased dependence with transfers 3. Inability to safely ambulate without assistive device and physical assistance 4. Increase completion time for mobility ADL performance 5. Increased fall risk 6. Inability to negotiate steps alone safely Patient is assessed Moderate 18704 complexity based on the following: History: 58-year-old female previously independent with all aspects of ADLs without use of any assistive ambulatory devices nor adaptive equipment who was admitted to the ED for generalized weakness, hyponatremia, failure to thrive, left foot pain and buttock pain Examination: Underlying impairments and functional limitations as noted above Presentation: Evolving Decision Makin moderate complexity Goals: Goals X1 week 1. Supine-Sit independent 2. Sit-Supine independent 3. Sit-Stand independent 4. Stand-Sit independent 5. Bed-Chair independent 6. Chair-Bed independent 7. Independent gait on level surface with use of least restrictive device for at least 300 feet without report of pain nor dyspnea 8. Independent stair negotiation while holding onto bilateral rails for at least 10 steps without report of pain nor dyspnea 9. Independent with home exercise program 10. Good static and dynamic standing balance/tolerance Plan of Care/Treatment Plan: 1-2x/day, 7 days/week x 1 week. Plan of care has been reviewed with the EVP CHIEF EXPLORATION OFFICER providing the service under Physical Therapy direction. Initiate Physical Therapy intervention for strengthening, bed mobility, transfers, gait, stairs, balance training, use of assistive device. DISCHARGE RECOMMENDATIONS: Patient will benefit from long term facility placement or home health physical therapy in order to maximize functional mobility level and facilitate return to work. Patient benefit from a front wheeled walker to maximize mobility and reduce fall risk TREATMENT CODE/TIME: 64002 25 minutes beginning at 11:08 AM. Thank you for this referral. Kenia Saba, PT, DPT, CLT [facility]
--- NOTE | 2018-09-06 11:51 | IN_ITS ---
Date of service: 09/06/18 Time of Service: 11:08 PT Notes Inpatient Physical Therapy Evaluation Date: 09/06/2018 Referring Doctor: Glenda Simeon NP PT Orders: PT CONSULT: Generalized weakness, hypothyroidism, hyponatremia, falling at home Precautions: Fall. Standard. Patient Profile/Admitting Diagnosis: Orders received for this 4-year-old female who presented to the ED with chief complaints of generalized weakness, left foot pain, and buttock pain. Patient is diagnosed with hyponatremia, falling, failure to thrive. PMHX: Medical History Continuous chewing tobacco dependence (Inactive 01/22/12) Hyperlipidemia (Chronic 08/21/12) Neuropathy (Chronic 12/07/16) Hyperlipidemia (Chronic 08/21/12) Foot pain, left (Chronic 12/04/16) Essential hypertension (Chronic 01/22/12) Arterial occlusive disease (Chronic 12/04/16) Hypothyroidism (Chronic) Social History/Home Situation: Patient lives at home anyone for her, rails in both sides. She states she is independent with all aspects of ADLs without assistive ambulatory devices nor adaptive equipment. She reports she has worked for a long time at [employer], third shift. She does not drive. She further states that she is currently on medical leave back home and resume work. Equipment Owned/DME: None. Subjective: Patient agreeable to a PT consult. She denies any headaches and dizziness. Does report pain on her left foot that she states has been there for quite a while now. She said she takes Gabapentin to manage the pain. Objective: General Observation: Patient seen resting in bed. IV in the right UE. Dark brown thickened circumscribed discoloration on the plantar aspect of the lateral metatarsal head areas observed which appear to be callus formation. Both areas are non-blanchable. Mental Status: Alert and oriented x3 Pain: Patient reports 10/10 pain on the left foot despite recent intake of Tramadol and Tylenol about 3 hours ago. Nurse updated about complaint. Vital Signs: 103/63 mmHg, 89% on room air, 74 bpm ROM: Right Upper Extremity: Shoulder Flexion WFL. Shoulder abduction WFL. Elbow flexion WFL. Wrist flexion WFL. Functional opening and closing of hand WFL. Left Upper Extremity: Shoulder Flexion WFL. Shoulder abduction WFL. Elbow flexion WFL. Wrist flexion WFL. Functional opening and closing of hand WFL. Right Lower Extremity: Hip flexion WFL. Hip abduction WFL. Knee flexion WFL. Ankle dorsiflexion WFL. Ankle plantarflexion WFL. Left Lower Extremity: Hip flexion WFL. Hip abduction WFL. Knee flexion WFL. Ankle dorsiflexion WFL. Ankle plantarflexion WFL. Strength: STRENGTH: Right Upper Extremity: Shoulder flexors 4/5. Shoulder abductors 4/5. Elbow flexors 4/5. Elbow extensors 4/5. Certified Pharmacist Assistant strong. Left Upper Extremity: Shoulder flexors 4/5. Shoulder abductors 4/5. Elbow flexors 4/5. Elbow extensors 4/5. Certified Pharmacist Assistant strong. Right Lower Extremity:Hip flexors 3+/5. Hip abductors 3+ /5. Knee flexors 3+/5. Knee extensors 4-/5. Ankle dorsiflexors 4/5. Ankle plantarflexors 4/5. Left Lower Extremity: Hip flexors 3+/5. Hip abductors 3+ /5. Patient was able to tolerate minimal resistance provided to hip and knee extension in supine. Knee flexors 3+/5. Knee extensors 4-/5. Ankle dorsiflexors 4/5. Ankle plantarflexors 4/5. Sensation: Intact as to pain and pressure to B LE. BED MOBILITY LEVELS/TRANSFERS Rolling standby assist Supine to sit stand by assist Sit to supine standby assist Sit to stand standby assist Stand to sit standby assist Bed to chair NT Chair to bed NT Gait: NT. Patient reports 10/ on left foot. There is has been notified and will plan on doing gait training with premedication for pain. Balance: Static Sitting: Good Dynamic Sitting: Good Static Standing: Poor Dynamic Standing: Poor Special Tests: Mobility Limitations Standardized Measure [facility] AM-PAC 6 clicks Basic Mobility Inpatient Short Form: Raw Score: 13 CMS Score: 65% deficit Informed Consent/Education: Patient instructed in purpose of PT consult and plan of care. Assessment: Patient is a 58 year old female referred to physical therapy services with the diagnosis of hyponatremia, generalized weakness, left foot pain, buttock pain.. Patient presents with clinical signs and symptoms consistent with current/admitting diagnoses that have resulted to mobility limitations, gait instability, generalized weakness, and impairment of motor control as demonstrated by the following impairment level findings: 1. Decreased strength to B LE major muscle groups 2. Impaired sitting/standing balance 3. Impaired activity tolerance 4. Left foot pain at 10/10 Impairments are contributing to the following functional limitations: 1. Dependent bed mobility skills 2. Increased dependence with transfers 3. Inability to safely ambulate without assistive device and physical assistance 4. Increase completion time for mobility ADL performance 5. Increased fall risk 6. Inability to negotiate steps alone safely Patient is assessed Moderate 95019 complexity based on the following: History: 58-year-old female previously independent with all aspects of ADLs without use of any assistive ambulatory devices nor adaptive equipment who was admitted to the ED for generalized weakness, hyponatremia, failure to thrive, left foot pain and buttock pain Examination: Underlying impairments and functional limitations as noted above Presentation: Evolving Decision Makin moderate complexity Goals: Goals X1 week 1. Supine-Sit independent 2. Sit-Supine independent 3. Sit-Stand independent 4. Stand-Sit independent 5. Bed-Chair independent 6. Chair-Bed independent 7. Independent gait on level surface with use of least restrictive device for at least 300 feet without report of pain nor dyspnea 8. Independent stair negotiation while holding onto bilateral rails for at least 10 steps without report of pain nor dyspnea 9. Independent with home exercise program 10. Good static and dynamic standing balance/tolerance Plan of Care/Treatment Plan: 1-2x/day, 7 days/week x 1 week. Plan of care has been reviewed with the LIPCOAT SPRAYER providing the service under Physical Therapy direction. Initiate Physical Therapy intervention for strengthening, bed mobility, transfers, gait, stairs, balance training, use of assistive device. DISCHARGE RECOMMENDATIONS: Patient will benefit from penitentiary facility placement or home health physical therapy in order to maximize functional mobility level and facilitate return to work. Patient benefit from a front wheeled walker to maximize mobility and reduce fall risk TREATMENT CODE/TIME: 36755 25 minutes beginning at 11:08 AM. Thank you for this referral. Kenia Saba, PT, DPT, CLT [facility]
[2018-09-06 11:53] VITALS: BP 103/63; PULSE 70; RESP 20; TEMP 36.2; O2SAT 93
--- NOTE | 2018-09-06 14:00 | W.PM.PROGNOT ---
Date of Service Date of service: 09/06/18 Time of Service: 14:01 Assessment and Plan (1) Hyponatremia: Current visit: No Status: Chronic Sodium low remains low at 123 (was 122 on admission), in the setting of hypothyroidism. Give gentle IV hydration with NS at 60 cc/hr as she only weighs 36.7 kg. Monitor sodium level closely to ensure the the level does not rise too quickly. Repeat Na level pending. (2) Hypothyroidism: Current visit: No Status: Chronic Increase synthroid from 75 mcg daily to 100 mcg daily. Her primary care provider notes indicate that there are questions surrounding whether she takes her medications as ordered. (3) Smoker: Current visit: Yes Status: Acute Smokes 1/2 ppd. Continue to provide nicotine replacement and encourage smoking cessation. (4) Foot pain, left: Current visit: No Status: Chronic Neuropathy vs claudication. Chronic. ABIs at [facility] in 2017 showed bilateral moderate arterial occlusive disease. Continue home gabapentin dose. Tylenol and tramadol for pain. Hgb A1c in with morning labs. (5) Essential hypertension: Current visit: No Status: Chronic Not currently hypertensive. Continue home amlodipine and metoprolol with hold parameters. Continue to monitor blood pressures. (6) Failure to thrive: Current visit: Yes Status: Acute Appears to be failing at home. AZL to buttock excoriation. Continue PT/OT. May require SNF for rehab prior to returning home. (7) Alcohol use: Current visit: Yes Status: Acute Suspicion for alcohol abuse. She reports drinking 2 cans of beer per day, however there have been conflicting reports around how much alcohol she drinks. Initiate CIWA protocol with lorazepam as needed per protocol. (8) DVT prophylaxis: Current visit: Yes Status: Acute Subcutaneous heparin. (9) Discharge planning issues: Current visit: Yes Status: Acute She is a full code. She appears to be failing at home. Consult physical therapy and Occupational Therapy. Correct hyponatremia. She may require transfer to shelter facility for rehab prior to returning home. This case was discussed with Dr. Quesada who is in agreement. Subjective Interval history since last seen: Kayla continues to report left foot pain, she reports that it is an 8 out of 10 currently, Tylenol helps relieve some pain. She continues to feel fatigued, she requires assistance getting up out of bed to the commode. She denies headache, nausea, vomiting, tremors, seizures, confusion. Her appetite has improved, she is eating and drinking and tolerating her diet. She denies nicotine cravings at the present time. She denies shortness of breath, coughing, wheezing, chest pain/pressure, palpitations, dysuria or hematuria. She remains on IV normal saline for hyponatremia in the setting of hypothyroidism. Exam Narrative Exam Narrative: General: 58 year old thin, frail appearing female, appears older than stated age, awake and alert, sitting up in bed, answers questions appropriately. Skin: buttocks (L>R) with erythema, excoriation, covered in cream. Erythema appears less intense today. HEENT: normocephalic, atraumatic. PERRLA, EOMI, mucous membranes moist. Neck: supple, no JVD. Cardiovascular: Heart has regular rate and rhythm, no murmur appreciated. Respiratory: Respirations even and unlabored, lung sounds clear to auscultation throughout. Gastrointestinal: Normoactive bowel sounds, abdomen thin, soft, nontender on palpation, no masses appreciated. Extremities: No clubbing, cyanosis or edema. Fingernails appear unkempt. Bilateral calves without erythema, swelling, tenderness. Left foot exquisitely tender to touch. Bilateral pedal pulses +1. Objective Objective Clinical Data: Abnormal lab results 09/05/18 09/05/18 09/06/18 Range/Units 17:05 23:00 06:20 WBC (4.4-10.8) k/cumm RBC (4.00-5.20) m/cumm Hgb (12.0-15.5) g/dL Hct (36.0-46.0) % MCV (80-95) fL MCH (27.0-33.0) pg Sodium 120 L* 121 L* (136-145) mmol/L Chloride (98-107) mmol/L Creatinine (0.55-1.02) mg/dL Glucose (70-100) mg/dL Calcium (8.5-10.1) mg/dL Magnesium 1.6 L (1.8-2.4) mg/dL TIBC (250-450) ug/dL Transferrin % Sat (15-50) % Ferritin (8-388) ng/mL AST (15-37) U/L Alkaline Phosphatase (46-116) U/L Total Protein (6.4-8.2) g/dL Albumin (3.4-5.0) g/dL Folate (8.6-20.0) ng/mL 09/06/18 09/06/18 09/06/18 Range/Units 06:20 06:20 06:20 WBC 3.17 L (4.4-10.8) k/cumm RBC 2.29 L (4.00-5.20) m/cumm Hgb 8.3 L D (12.0-15.5) g/dL Hct 24.1 L D (36.0-46.0) % MCV 105.2 H (80-95) fL MCH 36.2 H (27.0-33.0) pg Sodium 123 L* (136-145) mmol/L Chloride 91 L (98-107) mmol/L Creatinine 0.54 L (0.55-1.02) mg/dL Glucose 104 H D (70-100) mg/dL Calcium 8.2 L (8.5-10.1) mg/dL Magnesium (1.8-2.4) mg/dL TIBC 113 L (250-450) ug/dL Transferrin % Sat 94 H (15-50) % Ferritin 1962 H (8-388) ng/mL AST 80 H (15-37) U/L Alkaline Phosphatase 135 H (46-116) U/L Total Protein 5.0 L (6.4-8.2) g/dL Albumin 2.6 L (3.4-5.0) g/dL Folate (8.6-20.0) ng/mL 09/06/18 Range/Units 06:20 WBC (4.4-10.8) k/cumm RBC (4.00-5.20) m/cumm Hgb (12.0-15.5) g/dL Hct (36.0-46.0) % MCV (80-95) fL MCH (27.0-33.0) pg Sodium (136-145) mmol/L Chloride (98-107) mmol/L Creatinine (0.55-1.02) mg/dL Glucose (70-100) mg/dL Calcium (8.5-10.1) mg/dL Magnesium (1.8-2.4) mg/dL TIBC (250-450) ug/dL Transferrin % Sat (15-50) % Ferritin (8-388) ng/mL AST (15-37) U/L Alkaline Phosphatase (46-116) U/L Total Protein (6.4-8.2) g/dL Albumin (3.4-5.0) g/dL Folate 5.7 L (8.6-20.0) ng/mL Vital Signs Temperature 36.2 C L 09/06/18 11:53 Temperature Source Tympanic 09/06/18 11:53 Pulse 70 09/06/18 11:53 Pulse Rhythm Regular 09/06/18 07:17 Respiratory Rate 20 09/06/18 11:53 Respiratory Effort Non-Labored 09/06/18 07:17 Respiratory Depth Normal 09/06/18 07:17 Respiratory Pattern Normal 09/06/18 07:17 Blood Pressure 103/63 09/06/18 11:53 Blood Pressure Mean 57 09/05/18 12:49 Blood Pressure Position Supine 09/05/18 10:12 Pulse Oximetry 93 L 09/06/18 11:53 Oxygen Delivery Method Room Air 09/06/18 11:53 Oxygen Flow Rate 0 09/06/18 11:53 Pain Level 10 09/06/18 13:08 Comment 09/06/18 03:00 Intake & Output 09/05/18 09/06/18 09/06/18 23:59 11:59 23:59 Intake Total 1046.667 / 9401.861 0095 / 3045 Output Total 350 / 350 400 / 400 Balance 696.667 / 9419.114 9227 / 2645 Weight 36.741 kg 39.1 kg Intake: IV 566.667 / 5193.095 9183 / 1999 Oral 480 / 480 1045 / 1045 Output: Urine 350 / 350 400 / 400 Other: Urine Color Light Sanna Yellow Urine Appearance Clear Clear Urine Odor Normal Normal Comment Per ER report, pt incontinent in ER. Pt reportedly incontinent/continent. Stool Size Moderate Stool Characteristics Soft Brown Emesis Description Undigested Food Voiding Methods Bedside Commode Bedside Commode Incontinent Laboratory Results WBC 3.17 k/cumm (4.4-10.8) L 09/06/18 06:20 RBC 2.29 m/cumm (4.00-5.20) L 09/06/18 06:20 Hgb 8.3 g/dL (12.0-15.5) L D 09/06/18 06:20 Hct 24.1 % (36.0-46.0) L D 09/06/18 06:20 MCV 105.2 fL (80-95) H 09/06/18 06:20 MCH 36.2 pg (27.0-33.0) H 09/06/18 06:20 MCHC 34.4 g/dL (32.0-36.0) 09/06/18 06:20 RDW 13.4 % (11.7-14.6) 09/06/18 06:20 Plt Count 143 x1000/uL (130-400) 09/06/18 06:20 MPV 9.7 fL (8.0-11.0) 09/06/18 06:20 Immature Gran % 0.2 09/05/18 10:45 Neutrophils % 73.1 09/05/18 10:45 Lymphocytes % 10.3 09/05/18 10:45 Monocytes % 15.4 09/05/18 10:45 Eosinophils % 0.5 09/05/18 10:45 Basophils % 0.5 09/05/18 10:45 Absolute Neutrophils 3.19 k/cumm (1.2-6.7) 09/05/18 10:45 Absolute Lymphocytes 0.45 k/cumm (1.2-3.4) L 09/05/18 10:45 Absolute Monocytes 0.67 k/cumm (0.11-0.7) 09/05/18 10:45 Absolute Eosinophils 0.02 k/cumm (0.0-0.7) 09/05/18 10:45 Absolute Basophils 0.02 k/cumm (0.0-0.2) 09/05/18 10:45 Sodium 123 mmol/L (136-145) L* 09/06/18 06:20 Potassium 4.4 mmol/L (3.5-5.1) 09/06/18 06:20 Chloride 91 mmol/L (98-107) L 09/06/18 06:20 Carbon Dioxide 28.4 mmol/L (21.0-32.0) 09/06/18 06:20 Anion Gap 3.6 mmol/L (3-11) 09/06/18 06:20 BUN 12 mg/dL (7-18) 09/06/18 06:20 Creatinine 0.54 mg/dL (0.55-1.02) L 09/06/18 06:20 Estimated GFR/1.73 m2 >= 60.00 (mL/min/1.73m2) 09/06/18 06:20 Glucose 104 mg/dL (70-100) H D 09/06/18 06:20 Calcium 8.2 mg/dL (8.5-10.1) L 09/06/18 06:20 Magnesium 1.6 mg/dL (1.8-2.4) L 09/06/18 06:20 Iron 106 ug/dL (50-175) 09/06/18 06:20 TIBC 113 ug/dL (250-450) L 09/06/18 06:20 Transferrin % Sat 94 % (15-50) H 09/06/18 06:20 Ferritin 1962 ng/mL (8-388) H 09/06/18 06:20 Total Bilirubin 0.6 mg/dL (0.2-1.0) 09/06/18 06:20 AST 80 U/L (15-37) H 09/06/18 06:20 ALT 68 U/L (12-78) 09/06/18 06:20 Alkaline Phosphatase 135 U/L (46-116) H 09/06/18 06:20 Total Protein 5.0 g/dL (6.4-8.2) L 09/06/18 06:20 Albumin 2.6 g/dL (3.4-5.0) L 09/06/18 06:20 Vitamin B12 698 pg/mL (193-986) 09/06/18 06:20 Folate 5.7 ng/mL (8.6-20.0) L 09/06/18 06:20 TSH 25.23 uIU/mL (0.358-3.74) H 09/05/18 10:45 Free T4 0.88 ng/dL (0.76-1.46) 09/05/18 10:45 Urine Color Yellow (Yellow) 09/05/18 10:25 Urine Clarity Clear 09/05/18 10:25 Urine pH 6.0 (5-8) 09/05/18 10:25 Ur Specific [place] 1.015 (1.005-1.025) 09/05/18 10:25 Urine Protein 100 mg/dL (Negative) H 09/05/18 10:25 Urine Ketones 80 mg/dL (Negative) H 09/05/18 10:25 Urine Blood Trace-lysed (Negative) H 09/05/18 10:25 Urine Nitrite Negative (Negative) 09/05/18 10:25 Urine Bilirubin Moderate (Negative) H 09/05/18 10:25 Urine Urobilinogen 1.0 EU/dL (Up TO 0.2) H 09/05/18 10:25 Ur Leukocyte Esterase Small (Negative) H 09/05/18 10:25 Urine RBC Negative (0-2) 09/05/18 10:25 Urine WBC 10-20 HPF (0-5) 09/05/18 10:25 Ur Epithelial Cells Many HPF (Negative) 09/05/18 10:25 Urine Crystals Negative HPF (Negative) 09/05/18 10:25 Urine Bacteria Moderate HPF (Negative) 09/05/18 10:25 Urine Casts Negative LPF (Negative) 09/05/18 10:25 Urine Mucus Negative (Negative) 09/05/18 10:25 Ur Culture Indicated? No/sq. contamination 09/05/18 10:25 Ur Random Sodium 6 mmol/L 09/05/18 19:51 Urine Glucose Negative mg/dL (Negative) 09/05/18 10:25 Ethyl Alcohol < 3.0 mg/dL (<3) 09/05/18 10:45
[2018-09-06 14:20] LABS: Sodium 125 mmol/L (136-145)
--- NOTE | 2018-09-06 14:49 | PT.INTREAT ---
Date of service: 09/06/18 Time of Service: 14:49 PT Notes Inpatient Physical Therapy Treatment Note [facility] Date: 09/06/2018 PRECAUTIONS: Fall SUBJECTIVE: Kayla reports that she is feeling like she is at her baseline other than her L foot pain which is preventing her from being able to walk. OBJECTIVE: PAIN: Patient c/o significant L foot pain, although was able to perform all exercises without complaint, and did not demonstrate outward signs of pain t/o session. BED MOBILITY/TRANSFERS Rolling L/R: I Supine-sit: I Sit-Supine: I Sit-stand: SBA Stand-sit: SBA GAIT Assistive Device: FWW Weight bearing: WBAT L Assist: SBA Distance: 10' x4 Deviation: Cueing for offloading left foot with FWW to reduce pain, standing rest x3 THEREX: Patient completed a LE and core strengthening program, as per flow sheet. Patient did not c/o pain, although required significant rest between exercises. ASSESSMENT: Patient tolerated session with significant complaint of left foot pain. Patient was able to tolerate gait training with FWW support and SBA, requiring cueing for off-loading of left foot and standing rest periods due to left foot pain. Patient will benefit from continued gait training with FWW as well as strengthening for improved mobility. PLAN: Continue with PT's POC TREATMENT CODE/TIME: Session 1: 40 minutes; [id number], [id number] x2
--- NOTE | 2018-09-06 15:34 | PDOC.CMIN ---
Care Management Initial Assess REASON FOR HOSPITALIZATION:: Weakness, Hyponatremia PAST MEDICAL HISTORY/PAST SURGICAL HISTORY:: hypertension, hyperlipidemia, tobacco dependence, left foot pain x2 years, moderate bilateral arterial vascular disease (ABIs [facility] 2017), hypothyroidism and hyponatremia (108 in 04/2018). She has been followed for hyponatremia by her PCP. She followed up with her PCP in the office today and was found to have increased weakness, inability to care for herself at home, with a 9 pound weight loss in the last 2 months. PREVIOUS FUNCTIONAL STATUS/SOCIAL/FAMILY SUPPORTS:: Kayla resides alone in [place], [place]. She has been failing for sometime without apparent successful community intervention. 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 She was previously independent with ADLs in the community but reports not working since May 05, 2018. CURRENT FUNCTIONAL STATUS:: Kayla is lying in bed when CM met with her, she was forthcoming with information and reported struggling to keep positive relationships in the community and was unable to identify any natural supports. Has patient been provided with information about the portal?: Yes Did the patient sign up for the portal?: No CODE STATUS:: Full Code INSURANCE COVERAGE / FINANCIAL ISSUES:: BC/BS Other CURRENT HOME/COMMUNITY SERVICES/EQUIPMENT:: No current services or equipment. PRIMARY CARE PHYSICIAN:: Chidi Mccormack POTENTIAL DISCHARGE NEEDS:: Physical therapy and Occupational Therapy consults to inform discharge planning needs. Possible Navigator consult for additional insurance support. PATIENT/FAMILY EDUCATION NEEDS:: Review discharge instructions, discuss Ask Me Three. ANTICIPATED BARRIERS TO DISCHARGE:: None identified. TRANSPORTATION:: TBD by disposition. PLAN:: Kayla will continue to be closely monitored as well as evaluated for further needs. CM will follow and support discharge planning considerations.
--- NOTE | 2018-09-06 15:43 | INITIAL_ITS ---
Care Management Initial Assess REASON FOR HOSPITALIZATION:: Weakness, Hyponatremia PAST MEDICAL HISTORY/PAST SURGICAL HISTORY:: hypertension, hyperlipidemia, tobacco dependence, left foot pain x2 years, moderate bilateral arterial vascular disease (ABIs [facility] vascular 2017), hypothyroidism and hyponatremia (108 in 04/2018). She has been followed for hyponatremia by her PCP. She followed up with her PCP in the office today and was found to have increased weakness, inability to care for herself at home, with a 9 pound weight loss in the last 2 months. PREVIOUS FUNCTIONAL STATUS/SOCIAL/FAMILY SUPPORTS:: Kayla resides alone in [place], [place]. She has been failing for sometime without apparent successful community intervention. 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 She was previously independent with ADLs in the community but reports not working since May 05, 2018. CURRENT FUNCTIONAL STATUS:: Kayla is lying in bed when CM met with her, she was forthcoming with information and reported struggling to keep positive relation ships in the community and was unable to identify any natural supports. Has patient been provided with information about the portal?: Yes Did the patient sign up for the portal?: No CODE STATUS:: Full Code INSURANCE COVERAGE / FINANCIAL ISSUES:: BC/BS Other CURRENT HOME/COMMUNITY SERVICES/EQUIPMENT:: No current services or equipment. PRIMARY CARE PHYSICIAN:: Chidi Mccormack POTENTIAL DISCHARGE NEEDS:: Physical therapy and Occupational Therapy consults to inform discharge planning needs. Possible Navigator consult for additional insurance support. PATIENT/FAMILY EDUCATION NEEDS:: Review discharge instructions, discuss Ask Me Three. ANTICIPATED BARRIERS TO DISCHARGE:: None identified. TRANSPORTATION:: TBD by disposition. PLAN:: Kayla will continue to be closely monitored as well as evaluated for further needs. CM will follow and support discharge planning considerations.
[2018-09-06] MEDS: Enoxaparin 40 MG/0.4 ML SYR SC (15:53)
[2018-09-06 16:08] VITALS: BP 101/55; PULSE 81; RESP 19; TEMP 37.3; O2SAT 92
[2018-09-06 16:35] LABS: Osmolality Serum 258 mos/kg (275-295)
[2018-09-06 17:10] LABS: Osmolality, Urine 432 mos/kg (150-1150)
[2018-09-06] MEDS: Magnesium Oxide 400 MG TAB PO (19:40)
[2018-09-07] VITALS (8 sets, daily range): BP systolic 89–148; BP diastolic 57–82; PULSE 67–91; RESP 16–19; TEMP 36.2–37.2; O2SAT 95–100
[2018-09-07] MEDS: LORazepam 1 MG TAB PO/SL (00:04)
[2018-09-07] MEDS: Normal Saline 1,000 ML 80 ML IV ×2 (01:38→19:33)
[2018-09-07] MEDS: Levothyroxine 100 MCG TAB PO (06:18)
--- NOTE | 2018-09-07 07:15 | PDOC.CMPRO ---
Care Management Progress Note S/O: Kayla was sleeping in her chair, legs elevated when CM entered the room. She remains quirky and pleasant in interaction. She remains agreeable to SNF; CM faxed referral to the [facility] for review and will await determination. Kayla, per MD will have an anemia work up and mukul sample due to concern for unstable hemoglobin. She also had an event of emesis last evening and remains on CIWA protocol; requiring Ativan per RN. CM will continue to follow. A: 58 year old female admitted to [facility] 09/05/18 for Weakness, Hyponatremia P: SNF referrals faxed to the [facility] for review on Sunday. Kayla remains agreeable to SNF and reports seeking rehab placement from the community prior to admission. Her goal remains to recover fully and return home-gaining back her independence and returning to work. CM has discussed Medicaid coverage with CHT consult; Kayla reports her saved assets would disqualify her at this time though she shares only being able to afford her bills for another month or so. Depending on disposition, Kayla will require FWW per PT Evaluation. CM will continue to follow.
[2018-09-07 07:16] LABS: Anion Gap 6.2 mmol/L (3-11); BUN 9 mg/dL (7-18); CO2 28.8 mmol/L (21.0-32.0); CREATININE 0.56 mg/dL (0.55-1.02); Calcium 8.2 mg/dL (8.5-10.1); Chloride 94 mmol/L (98-107); Glucose 89 mg/dL (70-100); Magnesium 1.4 mg/dL (1.8-2.4); Potassium 3.6 mmol/L (3.5-5.1); Sodium 129 mmol/L (136-145)
[2018-09-07 07:20] LABS: HCT 23.9 % (36.0-46.0); HGB 8.2 g/dL (12.0-15.5); Mean Corp. HGB Concentration 34.3 g/dL (32.0-36.0); Mean Corpuscular Hemoglobin 36.9 pg (27.0-33.0); Mean Corpuscular Volume 107.7 fL (80-95); Platelet Count 150 x1000/uL (130-400); RBC 2.22 m/cumm (4.00-5.20); RBC Distribution Width 14.3 % (11.7-14.6); White Blood Cell Count 2.87 k/cumm (4.4-10.8)
--- NOTE | 2018-09-07 07:20 | CMPROGNOTE_ITS ---
Care Management Progress Note S/O: Kayla was sleeping in her chair, legs elevated when CM entered the room. She remains quirky and pleasant in interaction. She remains agreeable to SNF; CM faxed referral to the [facility] for review and will await determination. Kayla, per MD will have an anemia work up and mukul sample due to concern for unstable hemoglobin. She also had an event of emesis last evening and remains on CIWA protocol; requiring Ativan per RN. CM will continue to follow. A: 58 year old female admitted to [facility] 09/05/18 for Weakness, Hyponatremia P: SNF referrals faxed to the [facility] for review on Sunday. Kayla remains agreeable to SNF and reports seeking rehab placement from the community prior to admission. Her goal remains to recover fully and return home-gaining back her independence and returning to work. CM has discussed Medicaid coverage with CHT consult; Kayla reports her saved assets would disqualify her at this time though she shares only being able to afford her bills for another month or so. Depending on disposition, Kayla will require FWW per PT Evaluation. CM will continue to follow.
[2018-09-07 07:34] LABS: Hemoglobin A1C 4.6 % (4.5-6.2)
[2018-09-07] MEDS: Folic Acid 1 MG TAB PO (08:53)
[2018-09-07] MEDS: Magnesium Oxide 400 MG TAB PO ×2 (08:53→19:31)
[2018-09-07] MEDS: Acetaminophen 325 MG TAB PO ×2 (08:54→19:31)
[2018-09-07] MEDS: Aspirin E.C. 81 MG TABEC PO (08:54)
[2018-09-07] MEDS: Gabapentin 300 MG CAP PO ×2 (08:55→19:32)
[2018-09-07] MEDS: Multivitamin TAB 1 TAB PO (08:55)
[2018-09-07] MEDS: Thiamine 100 MG TAB PO (08:56)
[2018-09-07] MEDS: amLODIPine 5 MG TAB PO (08:57)
[2018-09-07] MEDS: Metoprolol 50 MG TAB PO ×2 (08:57→19:32)
[2018-09-07] MEDS: MAGNESIUM SULFATE 4 GM/100 ML BAG IVPB (08:58)
[2018-09-07] MEDS: Nicotine 14 MG/24 HR PATCH TD (08:58)
[2018-09-07] MEDS: Omeprazole 20 MG CAPCR PO (09:00)
--- NOTE | 2018-09-07 10:22 | PT.INTREAT ---
Date of service: 09/07/18 Time of Service: 10:22 PT Notes 09/07/18 SUBJECTIVE: Kayla stating she is soaked in bed and needs to get up to the commode. OBJECTIVE: Pt in bed. Agreeable to PT. TRANSFERS supine to sit: I Sit to stand: SBA Stand to sit: SBA GAIT Device: FWW Weight bearing: WBAT L Assist: CGA Distance: 10' Deviation: LOB posteriorly with Mod A to recover. 2 L NC. THEREX: Light UE/LE strengthening exercises performed in the chair. No complaints of pain throughout. VITALS: 87% on 2 L NC. ASSESSMENT: Decrease in pain complaints today although not very motivated to complete PT. She has poor safety awareness with transfers and with gait and requires significant amount of verbal cueing. PLAN: Continue current POC progressing toward's established goals. Treatment time: 25 minutes [id number], [id number] Jyoti Nielsen, VOCATIONAL ED INSTRUCTOR
--- NOTE | 2018-09-07 10:27 | PTTR_ITS ---
Date of service: 09/07/18 Time of Service: 10:22 PT Notes 09/07/18 SUBJECTIVE: Kayla stating she is soaked in bed and needs to get up to the commode. OBJECTIVE: Pt in bed. Agreeable to PT. TRANSFERS supine to sit: I Sit to stand: SBA Stand to sit: SBA GAIT Device: FWW Weight bearing: WBAT L Assist: CGA Distance: 10' Deviation: LOB posteriorly with Mod A to recover. 2 L NC. THEREX: Light UE/LE strengthening exercises performed in the chair. No complaints of pain throughout. VITALS: 87% on 2 L NC. ASSESSMENT: Decrease in pain complaints today although not very motivated to complete PT. She has poor safety awareness with transfers and with gait and requires significant amount of verbal cueing. PLAN: Continue current POC progressing toward's established goals. Treatment time: 25 minutes [id number], [id number] Jyoti Nielsen, BLEACH BOILER PULLER
[2018-09-07] MEDS: Potassium Chloride 20 MEQ TABCR 40 MEQ PO (11:16)
[2018-09-07] MEDS: traMADol 50 MG TAB 25 MG PO (11:16)
--- NOTE | 2018-09-07 12:14 | PGE_ITS ---
Date of Service Date of service: 09/07/18 Time of Service: 13:34 Assessment and Plan (1) Hyponatremia: Start date: 09/07/18 Start time: 12:16 Current visit: No Status: Chronic Sodium level slowly improving at 129 with gentle hydration. Continue IVF at 80 overnight, sodium level pending for am, eating and drinking more, looking more energized. (2) Hypothyroidism: Start date: 09/07/18 Start time: 12:16 Current visit: No Status: Chronic Increase synthroid from 75 mcg daily to 100 mcg daily. She states she takes all meds as directed and never misses a dose. Conflicting thoughts per previous provider note that patient is not compliant with medication. (3) Anemia: Start date: 09/07/18 Start time: 12:17 Current visit: Yes Status: Chronic Acute on chronic, H/H today 8.2 and 23.9. down from 11.9 and 33.0 on admission and 8.3 and 24.1 yesterday. Anemia profile reveals TIBC 113, Transferrin 94, Ferritin 1962 and Iron 106. Folate started on day 2 of 7. Hemeoccult pending to r/o bleeding (4) Smoker: Start date: 09/07/18 Start time: 12:23 Current visit: No Status: Acute Smokes 1/2 ppd. Nictone patch, continue cessation. (5) Foot pain, left: Start date: 09/07/18 Start time: 12:23 Current visit: No Status: Chronic Neuropathy vs claudication. Chronic. ABIs at [facility] in 2017 showed bilateral moderate arterial occlusive disease. Continue home gabapentin dose. Tylenol and tramadol for pain. Hgb A1c 4.1 (6) Essential hypertension: Start date: 09/07/18 Start time: 12:23 Current visit: No Status: Chronic Continue to monitor blood pressures and blood pressure meds. (7) Failure to thrive: Start date: 09/07/18 Start time: 12:24 Current visit: No Status: Acute Appears to be failing at home. Improving while in the hospital. eating and drinking well. (8) Alcohol use: Start date: 09/07/18 Start time: 12:26 Current visit: No Status: Acute Suspicion for alcohol abuse. Scored on CIWA last night, continue CIWA protocol. (9) DVT prophylaxis: Start date: 09/07/18 Start time: 12:26 Current visit: No Status: Acute Subcutaneous heparin. (10) Discharge planning issues: Current visit: No Status: Acute She is a full code. She appears to be failing at home. Consult physical therapy and Occupational Therapy. Correct hyponatremia. She may require transfer to longterm facility for rehab prior to returning home. Subjective Patient reports: no new complaints and feels better Interval history since last seen: Ms. Leon, is feeling better today. She is sitting up in the chair. She appears older than stated age with thinning hair. She is eating and drinking without difficulty. Her sodium level has increased to 129, continue hydration. She denies missing or misuse of medication she states she takes all of them as directed when she is suppose to. Last night she did score on CIWA at 7 and was medicated with ativan. She was placed on RA today and her oxygen saturation was 78% on RA. Placed on 1 L at 94 % per nursing. Her H/H this am was 8.2 and 23.9 down form 11.9 and 33.0 on admission and 8.3 and 24.1 yesterday. Hemeoccult ordered, anemia profile revealed anemia of chronic disease TIBC 113 transferrin 94 ferritin 1962 with folate 5.7; started on folic acid dose two of 7 doses. Mag was repleted at 1.4 both IV and PO, continue to monitor labs. She denies chest pain, nausea, vomiting, diarrhea, shortness of breath. Exam Narrative Exam Narrative: General: 58 year old thin, frail appearing female, appears older than stated age, awake and alert, sitting up in bed, answers questions appropriately. Skin: buttocks (L>R) with erythema, excoriation, covered in cream. Erythema appears less intense today. HEENT: normocephalic, atraumatic. PERRLA, EOMI, mucous membranes moist. Neck: supple, no JVD. Cardiovascular: Heart has regular rate and rhythm, no murmur appreciated. Respiratory: Respirations even and unlabored, lung sounds clear to auscultation throughout Gastrointestinal: Normoactive bowel sounds, abdomen thin, soft, nontender on palpation, no masses appreciated. Extremities: No clubbing, cyanosis or edema. Fingernails appear unkempt. Bilateral calves without erythema, swelling, tenderness. Left foot exquisitely tender to touch. Bilateral pedal pulses +1. Objective Objective Clinical Data: Abnormal lab results 09/06/18 09/07/18 09/07/18 Range/Units 14:00 06:30 06:30 WBC 2.87 L (4.4-10.8) k/cumm RBC 2.22 L (4.00-5.20) m/cumm Hgb 8.2 L (12.0-15.5) g/dL Hct 23.9 L (36.0-46.0) % MCV 107.7 H (80-95) fL MCH 36.9 H (27.0-33.0) pg Sodium 125 L 129 L (136-145) mmol/L Chloride 94 L (98-107) mmol/L Calcium 8.2 L (8.5-10.1) mg/dL Magnesium 1.4 L (1.8-2.4) mg/dL Vital Signs Temperature 37.2 C 09/07/18 09:00 Temperature Source Tympanic 09/07/18 09:00 Pulse 91 H 09/07/18 09:00 Pulse Rhythm Regular 09/06/18 19:56 Respiratory Rate 18 09/07/18 09:00 Respiratory Effort Non-Labored 09/06/18 19:56 Respiratory Depth Normal 09/06/18 19:56 Respiratory Pattern Normal 09/06/18 19:56 Blood Pressure 148/82 H 09/07/18 09:00 Blood Pressure Mean 57 09/05/18 12:49 Blood Pressure Position Supine 09/05/18 10:12 Pulse Oximetry 98 09/07/18 09:00 Oxygen Delivery Method Nasal Cannula 09/07/18 09:00 Oxygen Flow Rate 2 09/07/18 09:00 Pain Level 8 09/07/18 11:16 Comment 09/07/18 09:00 Intake & Output 09/06/18 09/07/18 09/07/18 23:59 11:59 23:59 Intake Total 1672 / 4717 1258 / 1258 Output Total 425 / 825 Balance 1247 / 3892 1258 / 1258 Weight 43.1 kg Intake: IV 1432 / 3432 568 / 568 Oral 240 / 1285 690 / 690 Output: Urine 300 / 700 Emesis 125 / 125 Other: Urine Color Pale Yellow Urine Appearance Clear Urine Odor Normal Comment Pt voided in bed. Emesis Description Clear/Water Voiding Methods Bedside Commode Laboratory Results WBC 2.87 k/cumm (4.4-10.8) L 09/07/18 06:30 RBC 2.22 m/cumm (4.00-5.20) L 09/07/18 06:30 Hgb 8.2 g/dL (12.0-15.5) L 09/07/18 06:30 Hct 23.9 % (36.0-46.0) L 09/07/18 06:30 MCV 107.7 fL (80-95) H 09/07/18 06:30 MCH 36.9 pg (27.0-33.0) H 09/07/18 06:30 MCHC 34.3 g/dL (32.0-36.0) 09/07/18 06:30 RDW 14.3 % (11.7-14.6) 09/07/18 06:30 Plt Count 150 x1000/uL (130-400) 09/07/18 06:30 MPV 9.0 fL (8.0-11.0) 09/07/18 06:30 Immature Gran % 0.2 09/05/18 10:45 Neutrophils % 73.1 09/05/18 10:45 Lymphocytes % 10.3 09/05/18 10:45 Monocytes % 15.4 09/05/18 10:45 Eosinophils % 0.5 09/05/18 10:45 Basophils % 0.5 09/05/18 10:45 Absolute Neutrophils 3.19 k/cumm (1.2-6.7) 09/05/18 10:45 Absolute Lymphocytes 0.45 k/cumm (1.2-3.4) L 09/05/18 10:45 Absolute Monocytes 0.67 k/cumm (0.11-0.7) 09/05/18 10:45 Absolute Eosinophils 0.02 k/cumm (0.0-0.7) 09/05/18 10:45 Absolute Basophils 0.02 k/cumm (0.0-0.2) 09/05/18 10:45 Sodium 129 mmol/L (136-145) L 09/07/18 06:30 Potassium 3.6 mmol/L (3.5-5.1) 09/07/18 06:30 Chloride 94 mmol/L (98-107) L 09/07/18 06:30 Carbon Dioxide 28.8 mmol/L (21.0-32.0) 09/07/18 06:30 Anion Gap 6.2 mmol/L (3-11) 09/07/18 06:30 BUN 9 mg/dL (7-18) 09/07/18 06:30 Creatinine 0.56 mg/dL (0.55-1.02) 09/07/18 06:30 Estimated GFR/1.73 m2 >= 60.00 (mL/min/1.73m2) 09/07/18 06:30 Glucose 89 mg/dL (70-100) 09/07/18 06:30 Hemoglobin A1c 4.6 % (4.5-6.2) 09/07/18 06:30 Calcium 8.2 mg/dL (8.5-10.1) L 09/07/18 06:30 Magnesium 1.4 mg/dL (1.8-2.4) L 09/07/18 06:30 Iron 106 ug/dL (50-175) 09/06/18 06:20 TIBC 113 ug/dL (250-450) L 09/06/18 06:20 Transferrin % Sat 94 % (15-50) H 09/06/18 06:20 Ferritin 1962 ng/mL (8-388) H 09/06/18 06:20 Total Bilirubin 0.6 mg/dL (0.2-1.0) 09/06/18 06:20 AST 80 U/L (15-37) H 09/06/18 06:20 ALT 68 U/L (12-78) 09/06/18 06:20 Alkaline Phosphatase 135 U/L (46-116) H 09/06/18 06:20 Total Protein 5.0 g/dL (6.4-8.2) L 09/06/18 06:20 Albumin 2.6 g/dL (3.4-5.0) L 09/06/18 06:20 Vitamin B12 698 pg/mL (193-986) 09/06/18 06:20 Folate 5.7 ng/mL (8.6-20.0) L 09/06/18 06:20 TSH 25.23 uIU/mL (0.358-3.74) H 09/05/18 10:45 Free T4 0.88 ng/dL (0.76-1.46) 09/05/18 10:45 Urine Color Yellow (Yellow) 09/05/18 10:25 Urine Clarity Clear 09/05/18 10:25 Urine pH 6.0 (5-8) 09/05/18 10:25 Ur Specific [place] 1.015 (1.005-1.025) 09/05/18 10:25 Urine Protein 100 mg/dL (Negative) H 09/05/18 10:25 Urine Ketones 80 mg/dL (Negative) H 09/05/18 10:25 Urine Blood Trace-lysed (Negative) H 09/05/18 10:25 Urine Nitrite Negative (Negative) 09/05/18 10:25 Urine Bilirubin Moderate (Negative) H 09/05/18 10:25 Urine Urobilinogen 1.0 EU/dL (Up TO 0.2) H 09/05/18 10:25 Ur Leukocyte Esterase Small (Negative) H 09/05/18 10:25 Urine RBC Negative (0-2) 09/05/18 10:25 Urine WBC 10-20 HPF (0-5) 09/05/18 10:25 Ur Epithelial Cells Many HPF (Negative) 09/05/18 10:25 Urine Crystals Negative HPF (Negative) 09/05/18 10:25 Urine Bacteria Moderate HPF (Negative) 09/05/18 10:25 Urine Casts Negative LPF (Negative) 09/05/18 10:25 Urine Mucus Negative (Negative) 09/05/18 10:25 Ur Culture Indicated? No/sq. contamination 09/05/18 10:25 Ur Random Sodium 6 mmol/L 09/05/18 19:51 Urine Glucose Negative mg/dL (Negative) 09/05/18 10:25 Ethyl Alcohol < 3.0 mg/dL (<3) 09/05/18 10:45
--- NOTE | 2018-09-07 14:05 | OT.INIE ---
Occupational Therapy Notes Inpatient Occupational Therapy Evaluation Date: 09/06/18 Referring Doctor:Glenda Simeon NP OT Orders: Generalized weakness, failure to thrive Precautions: Fall Risk, Standard PATIENT PROFILE/ADMITTING DIAGNOSIS: Pt is a 58 year old female admitted through the ER for generalized weakness, left foot pain, and buttock pain. Patient was diagnosed with hyponatremia, falling, failure to thrive in her home environment. Past Medical History: Medical History Continuous chewing tobacco dependence (Inactive 01/22/12) Hyperlipidemia (Chronic 08/21/12) Neuropathy (Chronic 12/07/16) Hyperlipidemia (Chronic 08/21/12) Foot pain, left (Chronic 12/04/16) Essential hypertension (Chronic 01/22/12) Arterial occlusive disease (Chronic 12/04/16) Hypothyroidism (Chronic) Social History/Home Situation: Pt lives alone in an apartment. She does not use any devices for functional mobility. At Baseline pts ADLs are performed at the following level of function- Eating-(I) Grocery Shopping- Shops when she needs to, however states that she freezes all of her food and just eats it over the months. Cooking- Microwave Sleeping-(I) Dressing- (I) Bathing- Only has a bathtub no shower. She states its an old claw foot tub and she does this (I). Pt admits she is not able to perform this at her home and has not bathed since her pain started and just washes up her face and wherever is dirty. Driving- Does not drive, states she walks everywhere Work- Works at [employer] in [place] 3rd shift. Has had multiple dramatic experiences in the work place. Support- Pt states that she has very limited social support and that no one ever comes to check on her. Pets- A cat- pt reports her friend is watching her cat for the time being. Pts goal- To return to work as soon as possible. Equipment owned/DME: Pt states she does not need this. SUBJECTIVE: Pt was sitting on commode when OT arrived. She is scattered in thoughts and states that she wants her food as soon as possible. OBJECTIVE: General Observation: IV (L) UE, pt is anxious for food and states multiple times she is hungry Mental Status: A&Ox2 Pain: c/o pain in buttock and (B) feet Strength: RUE Shoulder flexion 4/5, elbow 3-/5, motorcycle assembler 4/5 L UE Shoulder flexion 4/5, elbow 3+/5, motorcycle assembler 4/5 ROM: RUE AROM WNL LUE AROM WNL FUNCTIONAL MOBILITY/ADLS: Transfers Supine-sit (I) Sit-supine (I) Sit-Stand Min (A) Stand-sit CGA Bed-Chair CGA-Min (A) Chair-bed CGA- Min (A) BATHING NT DRESSING Dressing UE NT Dressing LE Able to don and doff (B) socks with mod vc and increased activity time. GROOMING Pt denies. TOILETING on commode, min (A) EATING (I) for hand to mouth translation, min (A) with cutting food. BALANCE: Static sitting Normal Dynamic Sitting Good Static Standing Fair Dynamic Standing Poor INFORMED CONSENT/EDUCATION: Pt instructed in purpose of OT Consult and plan of care. ASSESSMENT: Patient is a 58-year-old female referred to occupational therapy services with diagnosis of generalized weakness, left foot pain, and buttock pain. Patient is diagnosed with hyponatremia, falling, failure to thrive. Patient presents with clinical signs and symptoms consistent with dx, as demonstrated by the following impairment level findings: decreased functional activity tolerance, decreased functional mobility, decreased safety awareness, decreased awareness of medical issues, pain in (B) feet. Impairments are contributing to the following functional limitations: Unable to perform safe functional mobility, decreased functional activity tolerance, unable to perform ADLs safely in her home set up, decreased supports for ability to thrive in home environment. Patient is assessed as a Moderate 28261 complexity based on the following: History: See Above Examination: See Above Presentation: Evolving Decision Making: Moderate complexity based on examination GOALS Goals x1 week 1. Transfers FWW (I) 2. Dressing (I) 3. Bathing (I) standing at sink 4. Toileting (I) on toilet 5. Eating (I) 6. Pt will be able to stand at sink with FWW to brush her teeth and hair (I). PLAN OF CARE/TREATMENT PLAN: 1x/day, 5 days/ week x 1week Initiate Occupational Therapy Services for bathing, dressing, grooming, toileting, eating, transfer training. DISCHARGE RECOMMENDATIONS SNF vs. home with HH services. Due to pts decreased safety awareness and generalized weakness affecting her ADLs/IADLs OT does not feel that pt is safe to return home without services in place. TREATMENT TIME/MINUTES/CODES 42168, [id number], 40 minutes (08:13) Jane Gomez, OTR/L [facility]
--- NOTE | 2018-09-07 14:10 | OTIE_ITS ---
Occupational Therapy Notes Inpatient Occupational Therapy Evaluation Date: 09/06/18 Referring Doctor:Glenda Simeon NP OT Orders: Generalized weakness, failure to thrive Precautions: Fall Risk, Standard PATIENT PROFILE/ADMITTING DIAGNOSIS: Pt is a 58 year old female admitted through the ER for generalized weakness, left foot pain, and buttock pain. Patient was diagnosed with hyponatremia, falling, failure to thrive in her home environment. Past Medical History: Medical History Continuous chewing tobacco dependence (Inactive 01/22/12) Hyperlipidemia (Chronic 08/21/12) Neuropathy (Chronic 12/07/16) Hyperlipidemia (Chronic 08/21/12) Foot pain, left (Chronic 12/04/16) Essential hypertension (Chronic 01/22/12) Arterial occlusive disease (Chronic 12/04/16) Hypothyroidism (Chronic) Social History/Home Situation: Pt lives alone in an apartment. She does not use any devices for functional mobility. At Baseline pts ADLs are performed at the following level of function- Eating-(I) Grocery Shopping- Shops when she needs to, however states that she freezes all of her food and just eats it over the months. Cooking- Microwave Sleeping-(I) Dressing- (I) Bathing- Only has a bathtub no shower. She states its an old claw foot tub and she does this (I). Pt admits she is not able to perform this at her home and has not bathed since her pain started and just washes up her face and wherever is dirty. Driving- Does not drive, states she walks everywhere Work- Works at [employer] in [place] 3rd shift. Has had multiple dramatic experiences in the work place. Support- Pt states that she has very limited social support and that no one ever comes to check on her. Pets- A cat- pt reports her friend is watching her cat for the time being. Pts goal- To return to work as soon as possible. Equipment owned/DME: Pt states she does not need this. SUBJECTIVE: Pt was sitting on commode when OT arrived. She is scattered in thoughts and states that she wants her food as soon as possible. OBJECTIVE: General Observation: IV (L) UE, pt is anxious for food and states multiple times she is hungry Mental Status: A&Ox2 Pain: c/o pain in buttock and (B) feet Strength: RUE Shoulder flexion 4/5, elbow 3-/5, histologic technician 4/5 L UE Shoulder flexion 4/5, elbow 3+/5, histologic technician 4/5 ROM: RUE AROM WNL LUE AROM WNL FUNCTIONAL MOBILITY/ADLS: Transfers Supine-sit (I) Sit-supine (I) Sit-Stand Min (A) Stand-sit CGA Bed-Chair CGA-Min (A) Chair-bed CGA- Min (A) BATHING NT DRESSING Dressing UE NT Dressing LE Able to don and doff (B) socks with mod vc and increased activity time. GROOMING Pt denies. TOILETING on commode, min (A) EATING (I) for hand to mouth translation, min (A) with cutting food. BALANCE: Static sitting Normal Dynamic Sitting Good Static Standing Fair Dynamic Standing Poor INFORMED CONSENT/EDUCATION: Pt instructed in purpose of OT Consult and plan of care. ASSESSMENT: Patient is a 58-year-old female referred to occupational therapy services with diagnosis of generalized weakness, left foot pain, and buttock pain. Patient is diagnosed with hyponatremia, falling, failure to thrive. Patient presents with clinical signs and symptoms consistent with dx, as demonstrated by the following impairment level findings: decreased functional activity tolerance, decreased functional mobility, decreased safety awareness, decreased awareness of medical issues, pain in (B) feet. Impairments are contributing to the following functional limitations: Unable to perform safe functional mobility, decreased functional activity tolerance, unable to perform ADLs safely in her home set up, decreased supports for ability to thrive in home environment. Patient is assessed as a Moderate 93928 complexity based on the following: History: See Above Examination: See Above Presentation: Evolving Decision Making: Moderate complexity based on examination GOALS Goals x1 week 1. Transfers FWW (I) 2. Dressing (I) 3. Bathing (I) standing at sink 4. Toileting (I) on toilet 5. Eating (I) 6. Pt will be able to stand at sink with FWW to brush her teeth and hair (I). PLAN OF CARE/TREATMENT PLAN: 1x/day, 5 days/ week x 1week Initiate Occupational Therapy Services for bathing, dressing, grooming, toileting, eating, transfer training. DISCHARGE RECOMMENDATIONS SNF vs. home with HH services. Due to pts decreased safety awareness and generalized weakness affecting her ADLs/IADLs OT does not feel that pt is safe to return home without services in place. TREATMENT TIME/MINUTES/CODES 39112, [id number], 40 minutes (08:13) Jane Gomez, OTR/L [facility]
[2018-09-07] MEDS: Enoxaparin 40 MG/0.4 ML SYR SC (17:02)
--- NOTE | 2018-09-07 22:15 | W.NUTCONSULT ---
Date of service: 09/07/18 Time of Service: 22:15 Nutritional Consult ASSESSMENT: Ms. Leon is 61 and was admitted at 86 lbs/39.1 kg. Her BMI is 15.3 kg/m2 which is consistent with underweight. Her current weight is 43.1 kg which may be attributed to improved hydration. She reports a 9 lb weight loss in two months which is 9% of her body weight and is significant. She is on a regular diet. Her intake has been fair but improved from home per reports. She has obvious loss of subcutaneous fat. NUTRITIONAL DIAGNOSIS: Moderate malnutrition in the context of acute/chronic illness based on the objective parameters noted above based on the criteria from AND/ASPEN for diagnosing malnutrition. INTERVENTION: RD and/or CDM will continue to encourage nutrient dense oral intake. Will offer high protein, high calorie liqud nutritional supplements and/or magic cups to help boost calorie and protein intake. MONITORING AND EVALUATION: 1. Will monitor PO intake, weight and tolerance to supplements. 2. Will evaluate nutrition care plan ongoin and adjust as needed. Thank you for the consult. Time Spent in Nutritional Counseling and Treatment: ULISES
[2018-09-08] VITALS (8 sets, daily range): BP systolic 107–143; BP diastolic 60–78; PULSE 63–85; RESP 16–20; TEMP 35.9–37.2; O2SAT 87–94
[2018-09-08] MEDS: Docusate Sodium 100 MG CAP PO (03:43)
[2018-09-08] MEDS: Levothyroxine 100 MCG TAB PO (06:03)
[2018-09-08] MEDS: Normal Saline 1,000 ML 80 ML IV ×3 (06:14→20:21)
[2018-09-08 07:08] LABS: Mean Corp. HGB Concentration 33.3 g/dL (32.0-36.0); Mean Corpuscular Hemoglobin 36.8 pg (27.0-33.0); Mean Corpuscular Volume 110.5 fL (80-95); Mean Platelet Volume 9.1 fL (8.0-11.0); Platelet Count 149 x1000/uL (130-400); RBC Distribution Width 14.9 % (11.7-14.6); White Blood Cell Count 3.52 k/cumm (4.4-10.8)
[2018-09-08 07:30] LABS: Anion Gap 7.8 mmol/L (3-11); BUN 9 mg/dL (7-18); CO2 23.2 mmol/L (21.0-32.0); CREATININE 0.37 mg/dL (0.55-1.02); Calcium 6.9 mg/dL (8.5-10.1); Chloride 101 mmol/L (98-107); Glucose 103 mg/dL (70-100); Magnesium 1.5 mg/dL (1.8-2.4); Potassium 3.8 mmol/L (3.5-5.1); Sodium 132 mmol/L (136-145)
[2018-09-08] MEDS: Acetaminophen 325 MG TAB PO ×2 (07:49→15:46)
[2018-09-08] MEDS: Omeprazole 20 MG CAPCR PO (07:50)
[2018-09-08] MEDS: Thiamine 100 MG TAB PO (07:51)
[2018-09-08] MEDS: Folic Acid 1 MG TAB PO (07:53)
[2018-09-08] MEDS: traMADol 50 MG TAB 25 MG PO (07:53)
[2018-09-08] MEDS: Multivitamin TAB 1 TAB PO (07:53)
[2018-09-08] MEDS: Gabapentin 300 MG CAP PO ×2 (07:53→20:20)
[2018-09-08] MEDS: amLODIPine 5 MG TAB PO (07:53)
[2018-09-08] MEDS: Aspirin E.C. 81 MG TABEC PO (07:54)
[2018-09-08] MEDS: Metoprolol 50 MG TAB PO ×2 (07:54→20:20)
[2018-09-08] MEDS: Nicotine 14 MG/24 HR PATCH TD (07:58)
--- NOTE | 2018-09-08 08:09 | CMPROGNOTE_ITS ---
- If Service Date Differs Date of service: 09/08/18 Time of Service: 08:08 Care Management Progress Note S/O: Kayla remains acute today her hgb and hct are trending down she is now 7.0 and 21.0 no transfusion ordered at this point provider is aware. She does remain on oxygen which is not her baseline. Plan will be for her to discharge to a SNF pending bed offer and availability. A: 58 year old female admitted to [facility] 09/05/18 for Weakness, Hyponatremia P: Kayla remains acute today, referrals pending at [facility] and the [facility].Her goal remains to recover fully and return home-gaining back her independence and returning to work. Kayla reports her saved assets would disqualify her from Medicaid. CM to continue to provide support discharge planning and disposition.
[2018-09-08] MEDS: Magnesium Oxide 400 MG TAB 800 MG PO ×2 (08:11→20:20)
[2018-09-08] MEDS: MAGNESIUM SULFATE 4 GM/100 ML BAG IVPB (09:12)
--- NOTE | 2018-09-08 10:17 | W.PM.PROGNOT ---
Date of Service Date of service: 09/08/18 Time of Service: 10:18 Assessment and Plan (1) Hyponatremia: Current visit: No Status: Chronic Continue to infuse NS at 80 as sodium is improving at 132 today, continue to monitor. (2) Hypothyroidism: Current visit: No Status: Chronic Increase synthroid from 75 mcg daily to 100 mcg daily. Calcium is 6.9 today, ionized calcium ordered result pending. Monitor and replete if necessary in the setting of hypothyroidism (3) Anemia: Current visit: Yes Status: Chronic Acute on chronic, hemoccult negative, H/H today 7.0 and 21.0, repeat h/h for this afternoon pending. consider transfusion if less than 7.0, low in the setting of anemia, from hypothyroidism. Continue to monitor. (4) Smoker: Current visit: No Status: Acute Smokes 1/2 ppd. Nictone patch, continue cessation. consider PFT as outpatient as she is requiring 1 L oxygen at this time could be underlying undiagnosed COPD or in the setting of anemia. (5) Foot pain, left: Current visit: No Status: Chronic Neuropathy vs claudication. Chronic[place] [facility] [place] bilateral moderate arterial occlusive disease. Continue home gabapentin dose. Tylenol and tramadol for pain. Hgb A1c 4.1 , consult with Dr. Pratt for calluses and scalling to bilateral feet. (6) Essential hypertension: Current visit: No Status: Chronic Continue to monitor blood pressures and blood pressure meds. controlled at this time (7) Failure to thrive: Current visit: No Status: Acute Appears to be failing at home. Improving while in the hospital. eating and drinking well. (8) Alcohol use: Current visit: No Status: Acute Suspicion for alcohol abuse. CIWA 1 last night. continue monitoring (9) DVT prophylaxis: Current visit: No Status: Acute Subcutaneous heparin. (10) Discharge planning issues: Current visit: No Status: Acute She is a full code. She appears to be failing at home. Consult physical therapy and Occupational Therapy. Correct hyponatremia. She may require transfer to fpc facility for rehab prior to returning home. Subjective Patient reports: other Interval history since last seen: Mrs. Leon is feeling better today. She did complain of her feet having scaling. She does have loose skin with callus, Dr. Pratt has been consulted, she did have a previous appointment with him but did not make it to the appointment. Her sodium has increased to 132 continue IVF fluids, and her H/H is 7.0 and 21.0, she does have acute on chronic anemia evidenced by labs. there could be a dilutional component as well. Repeat H/H pending for this afternoon, consider transfusion if under 7.0. She is requiring 1 l of oxygen at this time, when on RA her oxygen level does decrease to 87%, her lungs are clear without signs of hypoxia and she denies SOB. Deoxygenation could be in the setting of anemia or undiagnosed COPD as patient is a long time tobacco user, recommend PFT testing as out patient. Magnesium level was low at 1.5 today despite repletion yesterday and po mag oxide; 4 gram infusion ordered and mag oxide increased to 800 BID. Calcium decreased today from 8.2 to 6.9, ionized calcium ordered and pending. Continue to monitor all chemistries and replete as needed. She denies chest pain, nausea, vomiting, diarrhea, shortness of breath, Exam Narrative Exam Narrative: General: 58 year old thin, frail appearing female, appears older than stated age, awake and alert, sitting up in bed, answers questions appropriately. Skin: buttocks (L>R) erythma and excoriation improving. Erythema appears less intense today. HEENT: normocephalic, atraumatic. PERRLA, EOMI, mucous membranes moist. Neck: supple, no JVD. Cardiovascular: Heart has regular rate and rhythm, no murmur appreciated. Respiratory: Respirations even and unlabored, lung sounds clear to auscultation throughout Gastrointestinal: Normoactive bowel sounds, abdomen thin, soft, nontender on palpation, no masses appreciated. Extremities: No clubbing, cyanosis or edema. Fingernails appear unkempt. Bilateral calves without erythema, swelling, tenderness. Right and left feet with scaling and calluses to bottom of feet. Objective Objective Clinical Data: Abnormal lab results 09/08/18 09/08/18 Range/Units 06:47 06:47 WBC 3.52 L (4.4-10.8) k/cumm RBC 1.90 L (4.00-5.20) m/cumm Hgb 7.0 L (12.0-15.5) g/dL Hct 21.0 L (36.0-46.0) % MCV 110.5 H (80-95) fL MCH 36.8 H (27.0-33.0) pg RDW 14.9 H (11.7-14.6) % Sodium 132 L (136-145) mmol/L Creatinine 0.37 L (0.55-1.02) mg/dL Glucose 103 H (70-100) mg/dL Calcium 6.9 L (8.5-10.1) mg/dL Magnesium 1.5 L (1.8-2.4) mg/dL Vital Signs Temperature 36.8 C 09/08/18 07:15 Temperature Source Tympanic 09/08/18 07:15 Pulse 72 09/08/18 07:15 Pulse Rhythm Regular 09/07/18 20:22 Respiratory Rate 18 09/08/18 07:15 Respiratory Effort Non-Labored 09/07/18 20:22 Respiratory Depth Normal 09/07/18 20:22 Respiratory Pattern Normal 09/07/18 20:22 Blood Pressure 143/76 H 09/08/18 07:15 Blood Pressure Mean 57 09/05/18 12:49 Blood Pressure Position Supine 09/05/18 10:12 Pulse Oximetry 94 L 09/08/18 07:15 Oxygen Delivery Method Nasal Cannula 09/08/18 07:15 Oxygen Flow Rate 2 09/08/18 07:15 Pain Level 10 09/08/18 07:53 Comment 09/08/18 07:15 Intake & Output 09/07/18 09/07/18 09/08/18 11:59 23:59 11:59 Intake Total 1258 / 3478 2220 / 3478 2178.667 / 2178.667 Output Total 200 / 405 205 / 405 50 / 50 Balance 1058 / 3073 2014 2128.667 / 2128.667 Weight 43.1 kg 43.6 kg Intake: IV 568 / 1568 1000 / 1568 1238.667 / 1238.667 Oral 690 / 1910 1220 / 1910 940 / 940 Output: Urine 200 / 405 205 / 405 50 / 50 Other: Urine Color Yellow Yellow Yellow Urine Appearance Clear Clear Clear Urine Odor Normal Stool Occult Blood Negative Stool Size Small Small Stool Characteristics Hard Soft Brown Voiding Methods Bedside Commode Laboratory Results WBC 3.52 k/cumm (4.4-10.8) L 09/08/18 06:47 RBC 1.90 m/cumm (4.00-5.20) L 09/08/18 06:47 Hgb 7.0 g/dL (12.0-15.5) L 09/08/18 06:47 Hct 21.0 % (36.0-46.0) L 09/08/18 06:47 MCV 110.5 fL (80-95) H 09/08/18 06:47 MCH 36.8 pg (27.0-33.0) H 09/08/18 06:47 MCHC 33.3 g/dL (32.0-36.0) 09/08/18 06:47 RDW 14.9 % (11.7-14.6) H 09/08/18 06:47 Plt Count 149 x1000/uL (130-400) 09/08/18 06:47 MPV 9.1 fL (8.0-11.0) 09/08/18 06:47 Immature Gran % 0.2 09/05/18 10:45 Neutrophils % 73.1 09/05/18 10:45 Lymphocytes % 10.3 09/05/18 10:45 Monocytes % 15.4 09/05/18 10:45 Eosinophils % 0.5 09/05/18 10:45 Basophils % 0.5 09/05/18 10:45 Absolute Neutrophils 3.19 k/cumm (1.2-6.7) 09/05/18 10:45 Absolute Lymphocytes 0.45 k/cumm (1.2-3.4) L 09/05/18 10:45 Absolute Monocytes 0.67 k/cumm (0.11-0.7) 09/05/18 10:45 Absolute Eosinophils 0.02 k/cumm (0.0-0.7) 09/05/18 10:45 Absolute Basophils 0.02 k/cumm (0.0-0.2) 09/05/18 10:45 Sodium 132 mmol/L (136-145) L 09/08/18 06:47 Potassium 3.8 mmol/L (3.5-5.1) 09/08/18 06:47 Chloride 101 mmol/L (98-107) 09/08/18 06:47 Carbon Dioxide 23.2 mmol/L (21.0-32.0) 09/08/18 06:47 Anion Gap 7.8 mmol/L (3-11) 09/08/18 06:47 BUN 9 mg/dL (7-18) 09/08/18 06:47 Creatinine 0.37 mg/dL (0.55-1.02) L 09/08/18 06:47 Estimated GFR/1.73 m2 >= 60.00 (mL/min/1.73m2) 09/08/18 06:47 Glucose 103 mg/dL (70-100) H 09/08/18 06:47 Hemoglobin A1c 4.6 % (4.5-6.2) 09/07/18 06:30 Calcium 6.9 mg/dL (8.5-10.1) L 09/08/18 06:47 Magnesium 1.5 mg/dL (1.8-2.4) L 09/08/18 06:47 Iron 106 ug/dL (50-175) 09/06/18 06:20 TIBC 113 ug/dL (250-450) L 09/06/18 06:20 Transferrin % Sat 94 % (15-50) H 09/06/18 06:20 Ferritin 1962 ng/mL (8-388) H 09/06/18 06:20 Total Bilirubin 0.6 mg/dL (0.2-1.0) 09/06/18 06:20 AST 80 U/L (15-37) H 09/06/18 06:20 ALT 68 U/L (12-78) 09/06/18 06:20 Alkaline Phosphatase 135 U/L (46-116) H 09/06/18 06:20 Total Protein 5.0 g/dL (6.4-8.2) L 09/06/18 06:20 Albumin 2.6 g/dL (3.4-5.0) L 09/06/18 06:20 Vitamin B12 698 pg/mL (193-986) 09/06/18 06:20 Folate 5.7 ng/mL (8.6-20.0) L 09/06/18 06:20 TSH 25.23 uIU/mL (0.358-3.74) H 09/05/18 10:45 Free T4 0.88 ng/dL (0.76-1.46) 09/05/18 10:45 Urine Color Yellow (Yellow) 09/05/18 10:25 Urine Clarity Clear 09/05/18 10:25 Urine pH 6.0 (5-8) 09/05/18 10:25 Ur Specific [place] 1.015 (1.005-1.025) 09/05/18 10:25 Urine Protein 100 mg/dL (Negative) H 09/05/18 10:25 Urine Ketones 80 mg/dL (Negative) H 09/05/18 10:25 Urine Blood Trace-lysed (Negative) H 09/05/18 10:25 Urine Nitrite Negative (Negative) 09/05/18 10:25 Urine Bilirubin Moderate (Negative) H 09/05/18 10:25 Urine Urobilinogen 1.0 EU/dL (Up TO 0.2) H 09/05/18 10:25 Ur Leukocyte Esterase Small (Negative) H 09/05/18 10:25 Urine RBC Negative (0-2) 09/05/18 10:25 Urine WBC 10-20 HPF (0-5) 09/05/18 10:25 Ur Epithelial Cells Many HPF (Negative) 09/05/18 10:25 Urine Crystals Negative HPF (Negative) 09/05/18 10:25 Urine Bacteria Moderate HPF (Negative) 09/05/18 10:25 Urine Casts Negative LPF (Negative) 09/05/18 10:25 Urine Mucus Negative (Negative) 09/05/18 10:25 Ur Culture Indicated? No/sq. contamination 09/05/18 10:25 Ur Random Sodium 6 mmol/L 09/05/18 19:51 Urine Glucose Negative mg/dL (Negative) 09/05/18 10:25 Ethyl Alcohol < 3.0 mg/dL (<3) 09/05/18 10:45
--- NOTE | 2018-09-08 10:34 | PTTR_ITS ---
Date of service: 09/08/18 Time of Service: 10:32 PT Notes 09/08/18 SUBJECTIVE: Kayla stating she is very confused about how she got so sick. She is inquiring about her sodium levels which she will discuss with stanley. OBJECTIVE: Supine in bed. Needs to use commode. Agreeable to PT. TRANSFERS Supine to sit: I Sit to supine: I Sit to stand: SBA Stand to sit: SBA GAIT Device: FWW Weight bearing: Full Assist: CGA Distance: 25'x2 Deviation: 2 L NC ASSESSMENT: No complaints of pain during treatment time and no LOB with ambulation. She continues to have poor safety awareness with transfers and requires skilled cueing for appropriate completion. PLAN: Continue current POC progressing toward's established goals. Treatment time: 20 minutes [id number] Jyoti Nielsen, MEDIA DEVELOPER
[2018-09-08] MEDS: Enoxaparin 40 MG/0.4 ML SYR SC (15:12)
[2018-09-08 16:46] LABS: Ionized Calcium 1.09 mmol/L (1.12-1.32)
[2018-09-08 16:51] LABS: HCT 27.3 % (36.0-46.0)
[2018-09-08 17:10] LABS: Bilirubin Negative (Negative); Blood Trace-lysed (Negative); Clarity Sl Cloudy; Glucose Negative (Negative); Ketones Negative (Negative); Leukocyte Esterase Moderate (Negative); Nitrite Positive (Negative); Urobilinogen 0.2 EU/dL (Up TO 0.2); pH 6.5 (5-8)
[2018-09-08 17:19] LABS: Bacteria Many HPF (Negative); C & S Indicated? Yes; Casts Negative LPF (Negative); Crystals Negative HPF (Negative); Epithelial Cells Few HPF (Negative); Mucus Negative (Negative); Other Cells Negative (Negative); RBC 0-2 (0-2); WBC >50 HPF (0-5)
[2018-09-08] MEDS: LORazepam 1 MG TAB PO/SL (17:46)
[2018-09-09] VITALS (8 sets, daily range): BP systolic 107–139; BP diastolic 61–80; PULSE 74–85; RESP 16–19; TEMP 36–37; O2SAT 89–96
[2018-09-09] MEDS: Normal Saline Flush 10 ML SYR IVP ×2 (02:17→14:08)
[2018-09-09] MEDS: Ondansetron 4 MG/2 ML VIAL IVP (02:17)
[2018-09-09] MEDS: Levothyroxine 100 MCG TAB PO (05:45)
[2018-09-09 07:16] LABS: HCT 22.4 % (36.0-46.0); HGB 7.2 g/dL (12.0-15.5); Mean Corp. HGB Concentration 32.1 g/dL (32.0-36.0); Mean Corpuscular Hemoglobin 35.6 pg (27.0-33.0); Mean Corpuscular Volume 110.9 fL (80-95); Mean Platelet Volume 9.6 fL (8.0-11.0); Platelet Count 177 x1000/uL (130-400); RBC 2.02 m/cumm (4.00-5.20); RBC Distribution Width 15.6 % (11.7-14.6); White Blood Cell Count 3.26 k/cumm (4.4-10.8)
[2018-09-09 07:31] LABS: Anion Gap 4.1 mmol/L (3-11); BUN 7 mg/dL (7-18); CO2 28.9 mmol/L (21.0-32.0); CREATININE 0.51 mg/dL (0.55-1.02); Calcium 8.2 mg/dL (8.5-10.1); Chloride 97 mmol/L (98-107); Glucose 91 mg/dL (70-100); Magnesium 1.8 mg/dL (1.8-2.4); Potassium 4.2 mmol/L (3.5-5.1); Sodium 130 mmol/L (136-145)
--- NOTE | 2018-09-09 09:16 | DI.RAD_ITS ---
SYMPTOM/DIAGNOSIS: HYPOXIA, WEAKNESS FRONTAL AND LATERAL CHEST: Comparison is made with 09/05/18. Heart size is within normal limits. There has developed small bilateral pleural effusions, left greater than right. Mild stranding is seen within the lungs. These findings are nonspecific. Atelectasis, edema or pneumonia cannot be excluded. The bones appear intact. No pneumothorax is identified. IMPRESSION: 1. Interval development of small bilateral pleural effusions and bilateral interstitial prominence. The interstitial disease is nonspecific. This may represent edema, atelectasis or pneumonia. Follow up as clinically appropriate.
[2018-09-09] MEDS: Nicotine 14 MG/24 HR PATCH TD (09:27)
[2018-09-09] MEDS: Metoprolol 50 MG TAB PO ×2 (09:30→19:47)
[2018-09-09] MEDS: Magnesium Oxide 400 MG TAB 800 MG PO ×2 (09:30→19:47)
[2018-09-09] MEDS: amLODIPine 5 MG TAB PO (09:31)
[2018-09-09] MEDS: Aspirin E.C. 81 MG TABEC PO (09:31)
[2018-09-09] MEDS: Gabapentin 300 MG CAP PO ×2 (09:32→19:47)
[2018-09-09] MEDS: Thiamine 100 MG TAB PO (09:32)
[2018-09-09] MEDS: Folic Acid 1 MG TAB PO (09:32)
[2018-09-09] MEDS: Multivitamin TAB 1 TAB PO (09:33)
--- NOTE | 2018-09-09 10:25 | OT.INTREAT ---
Date of service: 09/09/18 Time of Service: 09:40 Occupational Therapy Notes Occupational Therapy Inpatient Treatment Note Date: 09/09/18 PRECAUTIONS: Fall, Standard SUBJECTIVE: Pt was sitting in chair when OT arrived. She was agreeable to OT session reporting that she wanted to shower today with no exceptions. OBJECTIVE: PAIN:no c/o pain during ADLs and with functional mobility back to her room. FUNCTIONAL MOBILITY Sit-stand: Min (A) Stand-sit: CGA, FWW Shower-Chair: CGA, 1 rest break, FWW no c/o pain Chair to shower: Performed with BUSINESS COORDINATOR please refer to her note for details. BATHING: In shower/tub with min (A) transfer, sitting on shower bench Upper Body: (I), max (A) back, (I) hair Lower Body: (I) DRESSING: Sitting on shower bench Upper Extremity: (I) don and doffing [facility] gown Lower Extremity: Min (A) don and doffing (B) socks GROOMING: Sitting in chair (I) brushing hair ASSESSMENT/PLAN: Pt demonstrated increased (I) in ADL routine in the shower. She was (I) with bathing, she required min (A) for socks as pt did present with decreased functional activity tolerance. She did use 2 L O2 throughout ADL routines. Pt was able to walk back to her room with O2 with 1 rest break and no c/o pain in (B) feet. Pt has made increased functional progressions for her ADLs at this time. TREATMENT CODES/TIME: [id number], 40 minutes (09:40) YUNIER Hassan/[facility]
--- NOTE | 2018-09-09 10:35 | OTTR_ITS ---
Date of service: 09/09/18 Time of Service: 09:40 Occupational Therapy Notes Occupational Therapy Inpatient Treatment Note Date: 09/09/18 PRECAUTIONS: Fall, Standard SUBJECTIVE: Pt was sitting in chair when OT arrived. She was agreeable to OT session reporting that she wanted to shower today with no exceptions. OBJECTIVE: PAIN:no c/o pain during ADLs and with functional mobility back to her room. FUNCTIONAL MOBILITY Sit-stand: Min (A) Stand-sit: CGA, FWW Shower-Chair: CGA, 1 rest break, FWW no c/o pain Chair to shower: Performed with TEAM DRIVER please refer to her note for details. BATHING: In shower/tub with min (A) transfer, sitting on shower bench Upper Body: (I), max (A) back, (I) hair Lower Body: (I) DRESSING: Sitting on shower bench Upper Extremity: (I) don and doffing [facility] gown Lower Extremity: Min (A) don and doffing (B) socks GROOMING: Sitting in chair (I) brushing hair ASSESSMENT/PLAN: Pt demonstrated increased (I) in ADL routine in the shower. She was (I) with bathing, she required min (A) for socks as pt did present with decreased functional activity tolerance. She did use 2 L O2 throughout ADL routines. Pt was able to walk back to her room with O2 with 1 rest break and no c/o pain in (B) feet. Pt has made increased functional progressions for her ADLs at this time. TREATMENT CODES/TIME: [id number], 40 minutes (09:40) YUNIER Hassan/[facility]
[2018-09-09] MEDS: Ciprofloxacin 500 MG TAB PO ×2 (11:57→21:47)
--- NOTE | 2018-09-09 13:23 | PGE_ITS ---
Date of Service Date of service: 09/09/18 Time of Service: 13:58 Assessment and Plan (1) Hyponatremia: Start date: 09/09/18 Start time: 13:22 Current visit: No Status: Chronic Sodium is baseline at 130 given 128 in March and 132 in December with an average 130. IVF dcd continue to monitor with daily labs. (2) Hypothyroidism: Start date: 09/09/18 Start time: 13:25 Current visit: No Status: Chronic Increase synthroid from 75 mcg daily to 100 mcg daily. Calcium is 6.9 today, ionized calcium ordered result pending, (3) Anemia: Current visit: Yes Status: Chronic Acute on chronic, hemoccult negative, H/H today 7.2 and 22.4, low in the setting of anemia, from hypothyroidism. Continue to monitor. (4) Smoker: Start date: 09/09/18 Start time: 13:29 Current visit: No Status: Acute Smokes 1/2 ppd. Nictone patch, continue cessation. will get PFT while here to r/o underlying COPD due to hypoxia when taken off oxygen as low as 82%, when placed on 2 L oxygen level increases to 94%, question some underlying sleep apnea, which will need to be worked up as an outpatient. (5) Foot pain, left: Start date: 09/09/18 Start time: 13:51 Current visit: No Status: Chronic Dr. Pratt to see patient. (6) Essential hypertension: Start date: 09/09/18 Start time: 13:52 Current visit: No Status: Chronic Continue to monitor blood pressures and blood pressure meds. controlled at this time (7) Alcohol use: Start date: 09/09/18 Start time: 13:52 Current visit: No Status: Acute Suspicion for alcohol abuse. CIWA scores have been 0-4 over last 24 hours (8) DVT prophylaxis: Start date: 09/09/18 Start time: 13:52 Current visit: No Status: Acute Subcutaneous heparin. (9) Discharge planning issues: Start date: 09/09/18 Start time: 13:52 Current visit: No Status: Acute She is a full code. Continue to work with PT/OT (10) Fluid overload: Start date: 09/09/18 Start time: 13:53 Current visit: Yes Status: Acute CXR today in setting of hypoxia, question pneumonia vs atelectasis vs. edema, LLL with crackles and slight edema to bilateral lower extremities, consider more atelectasis or fluid overload with no fever, normal wbc, given 20 mg of lasix will monitor patient status, watch white count and for fever, if not improving consider antibiotics for pneumonia. (11) UTI (urinary tract infection): Start date: 09/09/18 Start time: 13:56 Current visit: Yes Status: Acute Evidenced by positive nitrates and moderate amount leukocytes, started on cipro 500 BID. Subjective Patient reports: other Interval history since last seen: Mrs. Leon is positive for moderate amount of leukocytes and positive nitrates in urine, started on cipro, which she refused this am, it was explained to her why she was placed on the medication and she has agreed to take it. She is crouched up in the chair at the time, lungs sound to left lower bases with crackles that do not clear with cough. She was clear bilaterally yesterday. She is also having slight pedal edema, she was on IVF x 4 days to increase her sodium level, a cxr was ordered with questionable edema vs pneumonia vs atelectasis, she does not have an elevated WBC or fever. More likely to be fluid overload in the setting of hydration for sodium resusitation, given the slight edema and crackles to lungs. 20 mg lasix IVP given. Monitor patient labs, hydration status. Will obtain PFT while patient is in the hospital for hypoxic state to see if underlying COPD due to chronic tobacco dependence. May need sleepy study as an outpatient to r/o sleep apnea for nocturnal hypoxia. If patient starts to become febrile, or white count increases over next 24 hours consider pneumonia and add antibiotics. Incentive spirometery given with encouragement and out of bed ambulation four times a day in setting of possible atelectasis as patient has only been getting out of bed and sitting up in chair. She denies, SOB, nausea, vomiting, diarrhea, chest pain. Exam Narrative Exam Narrative: General: 58 year old thin, frail appearing female, appears older than stated age, awake and alert, sitting up in bed, answers questions appropriately. Skin: buttocks (L>R) erythma and excoriation improving. erythema has improved HEENT: normocephalic, atraumatic. PERRLA, EOMI, mucous membranes moist. Neck: supple, no JVD. Cardiovascular: Heart has regular rate and rhythm, no murmur appreciated. Respiratory: Respirations even and unlabored, lung sounds clear to right side and crackles in base of left Gastrointestinal: Normoactive bowel sounds, abdomen thin, soft, nontender on palpation, no masses appreciated. Extremities: No clubbing, cyanosis , slight edema to bilateral lower extremities. . Fingernails appear unkempt. Bilateral calves without erythema, swelling, tenderness. Right and left feet with scaling and calluses to bottom of feet. Objective Objective Clinical Data: Abnormal lab results 09/05/18 09/08/18 09/08/18 Range/Units 10:45 08:10 16:15 WBC (4.4-10.8) k/cumm RBC (4.00-5.20) m/cumm Hgb (12.0-15.5) g/dL Hct (36.0-46.0) % MCV (80-95) fL MCH (27.0-33.0) pg RDW (11.7-14.6) % Sodium (136-145) mmol/L Chloride (98-107) mmol/L Creatinine (0.55-1.02) mg/dL Serum Osmolality 258 L (275-295) mOsm/kg Calcium (8.5-10.1) mg/dL Ionized Calcium 1.09 L (1.12-1.32) mmol/L Urine Blood Trace-lysed H (Negative) Urine Nitrite Positive H (Negative) Ur Leukocyte Esterase Moderate H (Negative) 09/08/18 09/09/18 09/09/18 Range/Units 16:30 06:20 06:20 WBC 3.26 L (4.4-10.8) k/cumm RBC 2.02 L (4.00-5.20) m/cumm Hgb 9.0 L 7.2 L (12.0-15.5) g/dL Hct 27.3 L D 22.4 L (36.0-46.0) % MCV 110.9 H (80-95) fL MCH 35.6 H (27.0-33.0) pg RDW 15.6 H (11.7-14.6) % Sodium 130 L (136-145) mmol/L Chloride 97 L (98-107) mmol/L Creatinine 0.51 L (0.55-1.02) mg/dL Serum Osmolality (275-295) mOsm/kg Calcium 8.2 L (8.5-10.1) mg/dL Ionized Calcium (1.12-1.32) mmol/L Urine Blood (Negative) Urine Nitrite (Negative) Ur Leukocyte Esterase (Negative) Vital Signs Temperature 36 C L 09/09/18 10:56 Temperature Source Tympanic 09/09/18 10:56 Pulse 74 09/09/18 10:56 Pulse Rhythm Irregular 09/09/18 09:39 Respiratory Rate 16 09/09/18 10:56 Respiratory Effort 09/09/18 09:39 Respiratory Depth Normal 09/09/18 09:39 Respiratory Pattern Normal 09/09/18 09:39 Blood Pressure 120/75 09/09/18 10:56 Blood Pressure Mean 57 09/05/18 12:49 Blood Pressure Position Supine 09/05/18 10:12 Pulse Oximetry 94 L 09/09/18 10:56 Oxygen Delivery Method Nasal Cannula 09/09/18 10:56 Oxygen Flow Rate 2 09/09/18 10:56 Pain Level 9 09/08/18 11:45 Comment 09/08/18 11:45 Intake & Output 09/08/18 09/09/18 09/09/18 23:59 11:59 23:59 Intake Total 1370.667 / 3549.334 1470 / 1920 450 / 1920 Output Total 180 / 230 Balance 1190.667 / 3319.334 1470 / 1920 450 / 1920 Intake: IV 890.667 / 2129.334 970 / 970 Oral 480 / 1420 500 / 950 450 / 950 Output: Urine 180 / 230 Other: Urine Color Pale Urine Appearance Clear Urine Odor Foul Comment pt was also incontinent of urine incontinent of a large amount of urine Stool Occult Blood Negative Stool Size Moderate Moderate Stool Characteristics Soft Soft Formed Formed Brown Voiding Methods Incontinent Diaper Incontinent Laboratory Results WBC 3.26 k/cumm (4.4-10.8) L 09/09/18 06:20 RBC 2.02 m/cumm (4.00-5.20) L 09/09/18 06:20 Hgb 7.2 g/dL (12.0-15.5) L 09/09/18 06:20 Hct 22.4 % (36.0-46.0) L 09/09/18 06:20 MCV 110.9 fL (80-95) H 09/09/18 06:20 MCH 35.6 pg (27.0-33.0) H 09/09/18 06:20 MCHC 32.1 g/dL (32.0-36.0) 09/09/18 06:20 RDW 15.6 % (11.7-14.6) H 09/09/18 06:20 Plt Count 177 x1000/uL (130-400) 09/09/18 06:20 MPV 9.6 fL (8.0-11.0) 09/09/18 06:20 Immature Gran % 0.2 09/05/18 10:45 Neutrophils % 73.1 09/05/18 10:45 Lymphocytes % 10.3 09/05/18 10:45 Monocytes % 15.4 09/05/18 10:45 Eosinophils % 0.5 09/05/18 10:45 Basophils % 0.5 09/05/18 10:45 Absolute Neutrophils 3.19 k/cumm (1.2-6.7) 09/05/18 10:45 Absolute Lymphocytes 0.45 k/cumm (1.2-3.4) L 09/05/18 10:45 Absolute Monocytes 0.67 k/cumm (0.11-0.7) 09/05/18 10:45 Absolute Eosinophils 0.02 k/cumm (0.0-0.7) 09/05/18 10:45 Absolute Basophils 0.02 k/cumm (0.0-0.2) 09/05/18 10:45 Sodium 130 mmol/L (136-145) L 09/09/18 06:20 Potassium 4.2 mmol/L (3.5-5.1) 09/09/18 06:20 Chloride 97 mmol/L (98-107) L 09/09/18 06:20 Carbon Dioxide 28.9 mmol/L (21.0-32.0) 09/09/18 06:20 Anion Gap 4.1 mmol/L (3-11) 09/09/18 06:20 BUN 7 mg/dL (7-18) 09/09/18 06:20 Creatinine 0.51 mg/dL (0.55-1.02) L 09/09/18 06:20 Estimated GFR/1.73 m2 >= 60.00 (mL/min/1.73m2) 09/09/18 06:20 Glucose 91 mg/dL (70-100) 09/09/18 06:20 Hemoglobin A1c 4.6 % (4.5-6.2) 09/07/18 06:30 Serum Osmolality 258 mOsm/kg (275-295) L 09/05/18 10:45 Calcium 8.2 mg/dL (8.5-10.1) L 09/09/18 06:20 Ionized Calcium 1.09 mmol/L (1.12-1.32) L 09/08/18 08:10 Magnesium 1.8 mg/dL (1.8-2.4) 09/09/18 06:20 Iron 106 ug/dL (50-175) 09/06/18 06:20 TIBC 113 ug/dL (250-450) L 09/06/18 06:20 Transferrin % Sat 94 % (15-50) H 09/06/18 06:20 Ferritin 1962 ng/mL (8-388) H 09/06/18 06:20 Total Bilirubin 0.6 mg/dL (0.2-1.0) 09/06/18 06:20 AST 80 U/L (15-37) H 09/06/18 06:20 ALT 68 U/L (12-78) 09/06/18 06:20 Alkaline Phosphatase 135 U/L (46-116) H 09/06/18 06:20 Total Protein 5.0 g/dL (6.4-8.2) L 09/06/18 06:20 Albumin 2.6 g/dL (3.4-5.0) L 09/06/18 06:20 Vitamin B12 698 pg/mL (193-986) 09/06/18 06:20 Folate 5.7 ng/mL (8.6-20.0) L 09/06/18 06:20 TSH 25.23 uIU/mL (0.358-3.74) H 09/05/18 10:45 Free T4 0.88 ng/dL (0.76-1.46) 09/05/18 10:45 Urine Color Yellow (Yellow) 09/08/18 16:15 Urine Clarity Sl cloudy 09/08/18 16:15 Urine pH 6.5 (5-8) 09/08/18 16:15 Ur Specific [place] 1.020 (1.005-1.025) 09/08/18 16:15 Urine Protein Negative mg/dL (Negative) 09/08/18 16:15 Urine Ketones Negative mg/dL (Negative) 09/08/18 16:15 Urine Blood Trace-lysed (Negative) H 09/08/18 16:15 Urine Nitrite Positive (Negative) H 09/08/18 16:15 Urine Bilirubin Negative (Negative) 09/08/18 16:15 Urine Urobilinogen 0.2 EU/dL (Up TO 0.2) 09/08/18 16:15 Ur Leukocyte Esterase Moderate (Negative) H 09/08/18 16:15 Urine RBC 0-2 (0-2) 09/08/18 16:15 Urine WBC >50 HPF (0-5) 09/08/18 16:15 Ur Epithelial Cells Few HPF (Negative) 09/08/18 16:15 Urine Crystals Negative HPF (Negative) 09/08/18 16:15 Urine Bacteria Many HPF (Negative) 09/08/18 16:15 Urine Casts Negative LPF (Negative) 09/08/18 16:15 Urine Mucus Negative (Negative) 09/08/18 16:15 Urine Other Negative (Negative) 09/08/18 16:15 Ur Culture Indicated? Yes 09/08/18 16:15 Urine Osmolality 432 mosm/Kg (150-1150) 09/05/18 19:51 Ur Random Sodium 6 mmol/L 09/05/18 19:51 Urine Glucose Negative mg/dL (Negative) 09/08/18 16:15 Ethyl Alcohol < 3.0 mg/dL (<3) 09/05/18 10:45
[2018-09-09] MEDS: Furosemide 20 MG/2 ML VIAL IVP (14:08)
--- NOTE | 2018-09-09 15:15 | PT.INTREAT ---
Date of service: 09/09/18 Time of Service: 15:15 PT Notes Inpatient Physical Therapy Treatment Note [facility] Date: 09/09/18 PRECAUTIONS: WBAT on L SUBJECTIVE: Kayla is excited about taking a shower this morning. She states in the afternoon that she was given Lasix, and will need to get up a lot to use the commode this afternoon. OBJECTIVE: PAIN: No c/o pain BED MOBILITY/TRANSFERS Supine-sit: I Sit-supine: I Sit-stand: SBA Stand-sit: SBA GAIT Assistive Device: FWW Weight bearing: WBAT on L Assist: CGA in a.m.; SBA in p.m. Distance: 50' in a.m.; 15' x2 in p.m. Deviation: Standing rest x5 in a.m.; standing rest x2 in p.m. THEREX: Patient completed an UE and LE strengthening program in a seated position, as per flow sheet. She c/o increased fatigue with exercise. ASSESSMENT: Patient tolerated session with c/o increased fatigue with activity. She was able to tolerate a progression in gait distance with FWW and SBA, requiring several standing rests due to fatigue. Patient would benefit from continued gait training and strengthening for improved activity tolerance and mobility. PLAN: Continue with PT's POC TREATMENT CODE/TIME: Session 1: 15 minutes; [id number] Session 2: 25 minutes; [id number], [id number]
--- NOTE | 2018-09-09 15:24 | PT.INTREAT ---
Date of service: 09/10/18 Time of Service: 15:15 PT Notes Inpatient Physical Therapy Treatment Note [facility] Date: 09/10/18 PRECAUTIONS: Fall SUBJECTIVE: Kayla reports that she was given Lasix again today, she has had to void a significant number of times today. She also reports that she is feeling better mentally, stating that she found out that someone has been caring for her cat home. OBJECTIVE: PAIN: No complaints of pain BED MOBILITY/TRANSFERS Supine-sit: I Sit-stand: I Stand-sit: I GAIT Assistive Device: FWW Weight bearing: WBAT on L Assist: S Distance: 5' + stand?pivot transfers chair <> commode x2 THEREX: Patient completed several UE and LE strengthening exercises in a seated position, as per flow sheet. She required significant rest breaks between exercises, due to reported fatigue. Patient also completes functional sit?to?stand exercise x5 from low recliner chair with UE assist. ASSESSMENT: Patient tolerated session without complaints of pain, although with complaints of increased fatigue with activity. Patient would benefit from continued gait and transfer training, as well as strengthening for improved activity tolerance and mobility. PLAN: Continue with PT's POC TREATMENT CODE/TIME: Session 1: 35 minutes; [id number], [id number]
[2018-09-09] MEDS: Acetaminophen 325 MG TAB PO (16:04)
[2018-09-09] MEDS: Enoxaparin 40 MG/0.4 ML SYR SC (16:04)
--- NOTE | 2018-09-09 18:05 | PDOC.CMPRO ---
Care Management Progress Note S/O: Kayla remains pleasant in interaction. She continues to be closely monitored and remains agreeable to SNF placement when ready for discharge per MD. CM spoke with [facility] and [place] [facility] continue to review Kayla for admission but were unable to provide bed offer today. CM will continue to follow. A: 58 year old female admitted to [facility] 09/05/18 for Weakness, Hyponatremia P: Kayla remains acute today, referrals pending at [facility] and the [facility]. Her goal remains to recover fully and return home-gaining back her independence and returning to work. CM to continue to provide support discharge planning and disposition.
--- NOTE | 2018-09-09 18:08 | CMPROGNOTE_ITS ---
Care Management Progress Note S/O: Kayla remains pleasant in interaction. She continues to be closely monitored and remains agreeable to SNF placement when ready for discharge per MD. CM spoke with [facility] and the [place] [facility] who continue to review Kayla for admission but were unable to provide bed offer today. CM will continue to follow. A: 58 year old female admitted to [facility] 09/05/18 for Weakness, Hyponatremia P: Kayla remains acute today, referrals pending at [facility] and the [place] [facility]. Her goal remains to recover fully and return home-gaining back her independence and returning to work. CM to continue to provide support discharge planning and disposition.
--- NOTE | 2018-09-09 19:30 | W.PODCONSULT ---
Date of service: 09/09/18 Time of Service: 19:31 History of Present Illness Chief Complaint: left foot pain Narrative: Kayla is a 58-year-old white female who was seen at bedside who looks much older than her stated age. She was admitted with a UTI, chronic anemia chronic hypothyroidism, alcoholism and failure to thrive. She complains of pain in the left foot which is started over 2 years ago. She describes it as a sharp shooting pain which goes into the toes and eventually shoot upwards towards the ankle. Vitals BP 129/76 pulse 81 respiration 18 temp 36.8 O2 sat is 96% with nasal cannula oxygen assist Current labs WBCs are low at 3.26 RBCs low at 2.02 hemoglobin was low at 7.2 hematocrit is low at 22.4 sodium is low at 130 chloride low at 97 creatinine 0.51 Physical examination reveals a cachectic appearing 58-year-old who looks much older than her stated age. Feet are warm to the touch although pulses are diminished. Vascular studies have been done back in 2017 showing moderate peripheral arterial disease. Skin is dry and flaky with plaque-like peeling appreciated affecting the plantar aspects of both feet, no secondary signs of infection are noted. Toenails are moderately thickened and elongated consistent with fungal involvement. Muscle groups of 5 out of 5 bilaterally. Generally deconditioned. Skeletal exam was generally benign. No joint inflammations or gross deformities were noted. Neurological exam: Toes are downgoing bilaterally. Percussion of the posterior tibial nerves were benign bilaterally. Positive grady sign was elicited in the third left intermetatarsal space and this was reproducible. She states that if I did it a third time she might have to kick me. Straight leg test is negative. Impressions: Possible neuroma third intermetatarsal space left foot Alcohol based neuropathy? Xerosis Plan: The unilaterality of her current complaints leans towards an isolated neuroma of the left third intermetatarsal space. Neurology considered this being a radiculopathy but the MRI was negative for bulging disc narrowing etc. I am recommending a diagnostic, therapeutic injection into the left third intermetatarsal space for neuroma. We will use Marcaine which may keep the left third interspace anesthetized for about 6 hours. If she gets temporary relief of his symptoms the diagnosis is confirmed. In addition, I will add Celestone Soluspan 6 mg . Procedure note: Utilizing aseptic technique, an injection was administered into the left third intermetatarsal space consisting of 6 mg Celestone Soluspan and 4 cc 0.5% Marcaine plain. Kayla tolerated the injection well. Within several minutes, she was no longer complaining of pain with compression of the third intermetatarsal space. For her xerosis, I am recommending Lac-Hydrin 12% lotion daily coupled with vigorous washing of her feet with soap and water daily. I did discuss the case with Dr. mary [facility] Medical History Continuous chewing tobacco dependence (Inactive 01/22/12) Hyperlipidemia (Chronic 08/21/12) Neuropathy (Chronic 12/07/16) Hyperlipidemia (Chronic 08/21/12) Foot pain, left (Chronic 12/04/16) Essential hypertension (Chronic 01/22/12) Arterial occlusive disease (Chronic 12/04/16) Hypothyroidism (Chronic) Social History Smoking/Tobacco Use Status: Current every day Alcohol Intake: current Alcohol Intake frequency: 0-2 drinks per day Alcohol type: beer Drug use: Never Substance use type: does not use Housing: apartment current occupation: -[employer] [place], [place] Pets and animals: Yes Pets and animals: cat(s) What type of physical activity do you participate in: none Duration: 15-30 minutes/day Frequency: 5-6 times per week Seatbelt use: always Drive intox or ride w/intox racing driver: No Working smoke detector in home: Yes Fire extinguisher in home: Yes Carbon monox detector in home: Yes Do you feel safe at home: Yes Do you feel safe in your relationship?: Yes Results Last Vital Signs Temp 36.8 C 09/09/18 15:59 Pulse 81 09/09/18 15:59 Resp 18 09/09/18 15:59 BP 129/76 09/09/18 15:59 Pulse Ox 96 09/09/18 15:59 Labs : 09/09/18 06:20 09/09/18 06:20 Laboratory Results - last 24 hr 09/05/18 09/05/18 09/08/18 10:45 19:51 08:10 WBC RBC Hgb Hct MCV MCH MCHC RDW Plt Count MPV Sodium Potassium Chloride Carbon Dioxide Anion Gap BUN Creatinine Estimated GFR/1.73 m2 Glucose Serum Osmolality 258 L Calcium Ionized Calcium 1.09 L Magnesium Urine Osmolality 432 09/09/18 09/09/18 06:20 06:20 WBC 3.26 L RBC 2.02 L Hgb 7.2 L Hct 22.4 L MCV 110.9 H MCH 35.6 H MCHC 32.1 RDW 15.6 H Plt Count 177 MPV 9.6 Sodium 130 L Potassium 4.2 Chloride 97 L Carbon Dioxide 28.9 Anion Gap 4.1 BUN 7 Creatinine 0.51 L Estimated GFR/1.73 m2 >= 60.00 Glucose 91 Serum Osmolality Calcium 8.2 L Ionized Calcium Magnesium 1.8 Urine Osmolality
[2018-09-09] MEDS: Betamet Acet/Betamet Na Ph Inj. 30 MG/5 ML 6 MG IM (19:55)
[2018-09-09] MEDS: Bupivacaine 0.5% Pres-Free 30 ML VIAL (19:56)
[2018-09-10] VITALS (10 sets, daily range): BP systolic 127–162; BP diastolic 69–92; PULSE 62–80; RESP 18–20; TEMP 35.7–37; O2SAT 86–98
[2018-09-10] MEDS: Levothyroxine 100 MCG TAB PO (06:22)
[2018-09-10] MEDS: Omeprazole 20 MG CAPCR PO (06:22)
[2018-09-10 07:24] LABS: HCT 25.1 % (36.0-46.0); HGB 8.1 g/dL (12.0-15.5); Mean Corp. HGB Concentration 32.3 g/dL (32.0-36.0); Mean Corpuscular Hemoglobin 35.8 pg (27.0-33.0); Mean Corpuscular Volume 111.1 fL (80-95); Mean Platelet Volume 9.8 fL (8.0-11.0); Platelet Count 217 x1000/uL (130-400); RBC 2.26 m/cumm (4.00-5.20); RBC Distribution Width 15.8 % (11.7-14.6); White Blood Cell Count 3.78 k/cumm (4.4-10.8)
[2018-09-10 07:32] LABS: Anion Gap 5.2 mmol/L (3-11); BUN 12 mg/dL (7-18); CO2 30.8 mmol/L (21.0-32.0); CREATININE 0.52 mg/dL (0.55-1.02); Calcium 8.7 mg/dL (8.5-10.1); Chloride 94 mmol/L (98-107); Glucose 152 mg/dL (70-100); Magnesium 1.6 mg/dL (1.8-2.4); Potassium 4.1 mmol/L (3.5-5.1); Sodium 130 mmol/L (136-145)
[2018-09-10] MEDS: Thiamine 100 MG TAB PO (07:41)
[2018-09-10] MEDS: Folic Acid 1 MG TAB PO (07:41)
[2018-09-10] MEDS: Magnesium Oxide 400 MG TAB 800 MG PO ×2 (07:42→19:54)
[2018-09-10] MEDS: Gabapentin 300 MG CAP PO ×2 (07:42→19:54)
[2018-09-10] MEDS: Nicotine 14 MG/24 HR PATCH TD (07:42)
[2018-09-10] MEDS: Multivitamin TAB 1 TAB PO (07:42)
[2018-09-10] MEDS: amLODIPine 5 MG TAB PO (07:42)
[2018-09-10] MEDS: Aspirin E.C. 81 MG TABEC PO (07:42)
[2018-09-10] MEDS: Metoprolol 50 MG TAB PO ×2 (07:42→19:54)
--- NOTE | 2018-09-10 08:58 | CMPROGNOTE_ITS ---
Care Management Progress Note S/O: Kayla remains pleasant in interaction. She continues to be closely monitored and remains agreeable to SNF placement when ready for discharge per MD. Kayla shared concerns around paying her rent (maggi Leonard; [phone]), managing her disability check and retrieving her mail. CM agreed to support Kayla in this avenue. CM will continue to follow. A: 58 year old female admitted to [facility] 09/05/18 for Weakness, Hyponatremia P: Kayla will discharge to SNF; referrals pending at [facility] and [facility]; [facility] reports no female bed availability at this time. Kayla's goal remains to recover fully and return home-gaining back her independence and returning to work. CM to continue to provide support discharge planning and disposition.
[2018-09-10] MEDS: MAGNESIUM SULFATE 2 GM/50 ML BAG IVPB (09:17)
--- NOTE | 2018-09-10 09:20 | OT.INTREAT ---
Date of service: 09/10/18 Time of Service: 08:50 Occupational Therapy Notes Occupational Therapy Inpatient Treatment Note Date: 09/10/18 PRECAUTIONS: Fall, Standard SUBJECTIVE: Pt was sitting in bed when OT arrived in a dark room and denies the need to turn on the lights. Pt states that she is depressed. She reports that she does not know if her cat is being taken care of and she states that she is concerned about her mail building up and that she needs to pay her rent. She states multiple times throughout OT session that she would like to return home and return to work. She states that she is worried that she is going to be let go from her job when she does get back as they are switching her to 2nd shift to fail so that they can get rid of her without having to pay her workers compensation. Pt reports that her depression is getting the best of her. She also reports that if she doesn't get a call back from her friend she is going to sneak out of the hospital and check on her cat and then come back. OBJECTIVE: PAIN:no c/o pain Therapeutic Activities [id number]: Pt was educated and trained in energy conservation techniques to conserve energy during her time at the hospital, energy conservation for meal preparation and home management as well as energy conservation techniques for her self care routine. Pt is able to demonstrate her own energy conservation techniques with donning and doffing (B) socks with modified techniques. Pt had multiple questions about transferring into her claw foot tub which she states she had difficulty with prior to OT session and now does not feel that she will be able to perform. OT and pt discuss transfer and pt does admit that at this time that she is not able to do so. ASSESSMENT/PLAN: SNF referral is being placed for pt for placement when medically cleared per MD at this time. TREATMENT CODES/TIME: [id number], 30 minutes (08:50) Jane Gomez OTR/[facility]
[2018-09-10] MEDS: traMADol 50 MG TAB 25 MG PO ×3 (09:33→23:10)
[2018-09-10] MEDS: levoFLOXacin 500 MG, levoFLOXacin 250 MG 750 MG PO (09:33)
--- NOTE | 2018-09-10 09:34 | OTTR_ITS ---
Date of service: 09/10/18 Time of Service: 08:50 Occupational Therapy Notes Occupational Therapy Inpatient Treatment Note Date: 09/10/18 PRECAUTIONS: Fall, Standard SUBJECTIVE: Pt was sitting in bed when OT arrived in a dark room and denies the need to turn on the lights. Pt states that she is depressed. She reports that she does not know if her cat is being taken care of and she states that she is concerned about her mail building up and that she needs to pay her rent. She states multiple times throughout OT session that she would like to return home and return to work. She states that she is worried that she is going to be let go from her job when she does get back as they are switching her to 2nd shift to fail so that they can get rid of her without having to pay her workers compensation. Pt reports that her depression is getting the best of her. She also reports that if she doesn't get a call back from her friend she is going to sneak out of the hospital and check on her cat and then come back. OBJECTIVE: PAIN:no c/o pain Therapeutic Activities [id number]: Pt was educated and trained in energy conservation techniques to conserve energy during her time at the hospital, energy conservation for meal preparation and home management as well as energy conservation techniques for her self care routine. Pt is able to demonstrate her own energy conservation techniques with donning and doffing (B) socks with modified techniques. Pt had multiple questions about transferring into her claw foot tub which she states she had difficulty with prior to OT session and now does not feel that she will be able to perform. OT and pt discuss transfer and pt does admit that at this time that she is not able to do so. ASSESSMENT/PLAN: SNF referral is being placed for pt for placement when medically cleared per MD at this time. TREATMENT CODES/TIME: [id number], 30 minutes (08:50) Jane Gomez OTR/[facility]
--- NOTE | 2018-09-10 12:32 | PGE_ITS ---
Date of Service Date of service: 09/10/18 Time of Service: 12:25 Assessment and Plan (1) Hyponatremia: Current visit: No Status: Chronic Normal saline discontinued yesterday. Sodium remains at baseline off IV normal saline. Continue to monitor. (2) Hypothyroidism: Current visit: No Status: Chronic Continue Synthroid at 100 mcg daily. Will need outpatient follow-up of TSH. (3) Anemia: Current visit: Yes Status: Chronic Throat acute on chronic, Hemoccult negative stools. Hemoglobin and hematocrit improved today to 8.1 and 25.1, in the setting of significant hypothyroidism. Continue to monitor. (4) Smoker: Current visit: No Status: Acute Smokes 1/2 ppd. Nictone patch, continue cessation. PFTs ordered by previous provider due to oxygen requirement. Oxygen requirement possibly in the setting of fluid overload, continue diuresis with IV lasix and continue to monitor respiratory status. (5) Foot pain, left: Current visit: No Status: Chronic She is being followed by Dr. Sow, Podiatry. Dr. Sow injected her left foot to assess for Palmer's Neuroma, she experienced relief from this. She will need to follow up with Dr. Sow as an outpatient. (6) Essential hypertension: Current visit: No Status: Chronic Controlled at present. Continue current regimen with Metoprolol and Amlodipine. Continue to monitor blood pressures. (7) Alcohol use: Current visit: No Status: Acute CIWA scores have been low, 0-2 in the last 24 hours. She has been on the CIWA scale x5 days. Discontinue CIWA. (8) Fluid overload: Current visit: Yes Status: Acute She continues to require oxgyen, afebrile, no leukocytosis. Rales to bilateral bases. Repeat IV lasix 20 mg. Continue to monitor. (9) UTI (urinary tract infection): Current visit: Yes Status: Acute Continue Levaquin for UTI to cover for possible lung process as well. (10) DVT prophylaxis: Current visit: No Status: Acute Subcutaneous heparin. (11) Discharge planning issues: Current visit: No Status: Acute She is a full code. PT recommends SNF, referrals have been sent by care managers. This case was discussed with Dr. Rodriguez who is in agreement. Subjective Interval history since last seen: Kayla is resting in bed with oxygen on. She does not want to wear the oxygen. She denies shortness of breath, she occasionally feels wheezy. She has an occasional nonproductive cough. She continues to report pain in her left foot, she admits the pain improved after she received an injection from Dr. Sow yesterday. She has been ambulating with PT. She denies chest pain/pressure, palpitations. She reports having a good appetite and eating and drinking well. She is tolerating her diet. She is being treated for a UTI, she is voiding without difficulty, no dysuria or hematuria, frequency noted. She is having regular bowel movements. She continues to have a sore bottom, the compounded cream is helping with her discomfort. Exam Narrative Exam Narrative: General: 58 year old thin, frail appearing female, appears older than stated age, awake and alert, sitting up in bed, answers questions appropriately. HEENT: normocephalic, atraumatic. PERRLA, EOMI, mucous membranes moist. Neck: supple, no JVD. Cardiovascular: Heart has regular rate and rhythm, no murmur appreciated. Respiratory: Respirations even and unlabored, lung sounds diminished with rales to bilateral bases, no wheezing. Gastrointestinal: Normoactive bowel sounds, abdomen thin, soft, nontender on palpation, no masses appreciated. Extremities: No clubbing or cyanosis. Trace edema to bilateral lower ext remities. Fingernails appear unkempt. Bilateral calves without erythema, swelling, tenderness. Pedal pulses palpable bilaterally. Objective Objective Clinical Data: Abnormal lab results 09/10/18 09/10/18 Range/Units 06:10 06:10 WBC 3.78 L (4.4-10.8) k/cumm RBC 2.26 L (4.00-5.20) m/cumm Hgb 8.1 L (12.0-15.5) g/dL Hct 25.1 L (36.0-46.0) % MCV 111.1 H (80-95) fL MCH 35.8 H (27.0-33.0) pg RDW 15.8 H (11.7-14.6) % Sodium 130 L (136-145) mmol/L Chloride 94 L (98-107) mmol/L Creatinine 0.52 L (0.55-1.02) mg/dL Glucose 152 H (70-100) mg/dL Magnesium 1.6 L (1.8-2.4) mg/dL Vital Signs Temperature 37.0 C 09/10/18 12:20 Temperature Source Tympanic 09/10/18 12:20 Pulse 80 09/10/18 12:20 Pulse Rhythm Regular 09/10/18 07:32 Respiratory Rate 20 09/10/18 12:20 Respiratory Effort Non-Labored 09/10/18 07:32 Respiratory Depth Normal 09/10/18 07:32 Respiratory Pattern Normal 09/10/18 07:32 Blood Pressure 128/78 09/10/18 12:20 Blood Pressure Mean 57 09/05/18 12:49 Blood Pressure Position Supine 09/05/18 10:12 Pulse Oximetry 93 L 09/10/18 12:20 Oxygen Delivery Method Nasal Cannula 09/10/18 12:20 Oxygen Flow Rate 2 09/10/18 12:20 Pain Level 8 09/10/18 09:33 Comment 09/10/18 12:20 Intake & Output 09/09/18 09/10/18 09/10/18 23:59 11:59 23:59 Intake Total 1470 / 2940 480 / 480 Output Total 250 / 250 800 / 800 Balance 1220 / 2690 -320 / -320 Weight 46.1 kg Intake: Oral 1470 / 1970 480 / 480 Output: Urine 250 / 250 800 / 800 Other: Urine Color Yellow Yellow Urine Appearance Clear Clear Urine Odor Normal Normal Comment Incontinent of a large amount urine saturating pink pad and brief. Pt continent and incontinent of bladder on occassion. Multiple, minimal ml voids; approx. 100ml each. Voiding Methods Diaper Bedside Commode Incontinent Laboratory Results WBC 3.78 k/cumm (4.4-10.8) L 09/10/18 06:10 RBC 2.26 m/cumm (4.00-5.20) L 09/10/18 06:10 Hgb 8.1 g/dL (12.0-15.5) L 09/10/18 06:10 Hct 25.1 % (36.0-46.0) L 09/10/18 06:10 MCV 111.1 fL (80-95) H 09/10/18 06:10 MCH 35.8 pg (27.0-33.0) H 09/10/18 06:10 MCHC 32.3 g/dL (32.0-36.0) 09/10/18 06:10 RDW 15.8 % (11.7-14.6) H 09/10/18 06:10 Plt Count 217 x1000/uL (130-400) 09/10/18 06:10 MPV 9.8 fL (8.0-11.0) 09/10/18 06:10 Immature Gran % 0.2 09/05/18 10:45 Neutrophils % 73.1 09/05/18 10:45 Lymphocytes % 10.3 09/05/18 10:45 Monocytes % 15.4 09/05/18 10:45 Eosinophils % 0.5 09/05/18 10:45 Basophils % 0.5 09/05/18 10:45 Absolute Neutrophils 3.19 k/cumm (1.2-6.7) 09/05/18 10:45 Absolute Lymphocytes 0.45 k/cumm (1.2-3.4) L 09/05/18 10:45 Absolute Monocytes 0.67 k/cumm (0.11-0.7) 09/05/18 10:45 Absolute Eosinophils 0.02 k/cumm (0.0-0.7) 09/05/18 10:45 Absolute Basophils 0.02 k/cumm (0.0-0.2) 09/05/18 10:45 Sodium 130 mmol/L (136-145) L 09/10/18 06:10 Potassium 4.1 mmol/L (3.5-5.1) 09/10/18 06:10 Chloride 94 mmol/L (98-107) L 09/10/18 06:10 Carbon Dioxide 30.8 mmol/L (21.0-32.0) 09/10/18 06:10 Anion Gap 5.2 mmol/L (3-11) 09/10/18 06:10 BUN 12 mg/dL (7-18) 09/10/18 06:10 Creatinine 0.52 mg/dL (0.55-1.02) L 09/10/18 06:10 Estimated GFR/1.73 m2 >= 60.00 (mL/min/1.73m2) 09/10/18 06:10 Glucose 152 mg/dL (70-100) H 09/10/18 06:10 Hemoglobin A1c 4.6 % (4.5-6.2) 09/07/18 06:30 Serum Osmolality 258 mOsm/kg (275-295) L 09/05/18 10:45 Calcium 8.7 mg/dL (8.5-10.1) 09/10/18 06:10 Ionized Calcium 1.09 mmol/L (1.12-1.32) L 09/08/18 08:10 Magnesium 1.6 mg/dL (1.8-2.4) L 09/10/18 06:10 Iron 106 ug/dL (50-175) 09/06/18 06:20 TIBC 113 ug/dL (250-450) L 09/06/18 06:20 Transferrin % Sat 94 % (15-50) H 09/06/18 06:20 Ferritin 1962 ng/mL (8-388) H 09/06/18 06:20 Total Bilirubin 0.6 mg/dL (0.2-1.0) 09/06/18 06:20 AST 80 U/L (15-37) H 09/06/18 06:20 ALT 68 U/L (12-78) 09/06/18 06:20 Alkaline Phosphatase 135 U/L (46-116) H 09/06/18 06:20 Total Protein 5.0 g/dL (6.4-8.2) L 09/06/18 06:20 Albumin 2.6 g/dL (3.4-5.0) L 09/06/18 06:20 Vitamin B12 698 pg/mL (193-986) 09/06/18 06:20 Folate 5.7 ng/mL (8.6-20.0) L 09/06/18 06:20 TSH 25.23 uIU/mL (0.358-3.74) H 09/05/18 10:45 Free T4 0.88 ng/dL (0.76-1.46) 09/05/18 10:45 Urine Color Yellow (Yellow) 09/08/18 16:15 Urine Clarity Sl cloudy 09/08/18 16:15 Urine pH 6.5 (5-8) 09/08/18 16:15 Ur Specific Oil Trough 1.020 (1.005-1.025) 09/08/18 16:15 Urine Protein Negative mg/dL (Negative) 09/08/18 16:15 Urine Ketones Negative mg/dL (Negative) 09/08/18 16:15 Urine Blood Trace-lysed (Negative) H 09/08/18 16:15 Urine Nitrite Positive (Negative) H 09/08/18 16:15 Urine Bilirubin Negative (Negative) 09/08/18 16:15 Urine Urobilinogen 0.2 EU/dL (Up TO 0.2) 09/08/18 16:15 Ur Leukocyte Esterase Moderate (Negative) H 09/08/18 16:15 Urine RBC 0-2 (0-2) 09/08/18 16:15 Urine WBC >50 HPF (0-5) 09/08/18 16:15 Ur Epithelial Cells Few HPF (Negative) 09/08/18 16:15 Urine Crystals Negative HPF (Negative) 09/08/18 16:15 Urine Bacteria Many HPF (Negative) 09/08/18 16:15 Urine Casts Negative LPF (Negative) 09/08/18 16:15 Urine Mucus Negative (Negative) 09/08/18 16:15 Urine Other Negative (Negative) 09/08/18 16:15 Ur Culture Indicated? Yes 09/08/18 16:15 Urine Osmolality 432 mosm/Kg (150-1150) 09/05/18 19:51 Ur Random Sodium 6 mmol/L 09/05/18 19:51 Urine Glucose Negative mg/dL (Negative) 09/08/18 16:15 Ethyl Alcohol < 3.0 mg/dL (<3) 09/05/18 10:45
[2018-09-10] MEDS: Furosemide 20 MG/2 ML VIAL IVP (12:45)
[2018-09-10] MEDS: Normal Saline Flush 10 ML SYR IVP (12:45)
[2018-09-10] MEDS: Acetaminophen 325 MG TAB PO ×2 (12:50→21:43)
[2018-09-10] MEDS: Lachydrin 12% LOTION 225 GM BTL TP (15:18)
[2018-09-10] MEDS: Enoxaparin 40 MG/0.4 ML SYR SC (15:49)
[2018-09-10] MEDS: Nicotine 2 MG GUM CH (21:43)
[2018-09-11] VITALS (11 sets, daily range): BP systolic 121–165; BP diastolic 69–88; PULSE 57–75; RESP 18–19; TEMP 36–36.9; O2SAT 83–97
[2018-09-11] MEDS: diphenhydrAMINE 25 MG CAP PO (00:08)
[2018-09-11] MEDS: Omeprazole 20 MG CAPCR PO (06:31)
[2018-09-11] MEDS: Levothyroxine 100 MCG TAB PO (06:31)
[2018-09-11 07:01] LABS: HCT 27.2 % (36.0-46.0); HGB 8.8 g/dL (12.0-15.5); Mean Corp. HGB Concentration 32.4 g/dL (32.0-36.0); Mean Corpuscular Hemoglobin 36.1 pg (27.0-33.0); Mean Corpuscular Volume 111.5 fL (80-95); Mean Platelet Volume 9.6 fL (8.0-11.0); Platelet Count 291 x1000/uL (130-400); RBC 2.44 m/cumm (4.00-5.20); RBC Distribution Width 16.2 % (11.7-14.6); White Blood Cell Count 5.53 k/cumm (4.4-10.8)
[2018-09-11 07:20] LABS: Anion Gap 7.3 mmol/L (3-11); BUN 13 mg/dL (7-18); CO2 30.7 mmol/L (21.0-32.0); Chloride 92 mmol/L (98-107); Glucose 100 mg/dL (70-100); Magnesium 2.1 mg/dL (1.8-2.4); Potassium 4.1 mmol/L (3.5-5.1); Sodium 130 mmol/L (136-145)
[2018-09-11] MEDS: Nicotine 2 MG GUM CH (08:22)
[2018-09-11] MEDS: Lachydrin 12% LOTION 225 GM BTL TP (08:22)
[2018-09-11] MEDS: Normal Saline Flush 10 ML SYR IVP (08:22)
[2018-09-11] MEDS: Magnesium Oxide 400 MG TAB 800 MG PO ×2 (08:23→20:07)
[2018-09-11] MEDS: Gabapentin 300 MG CAP PO ×2 (08:23→20:09)
[2018-09-11] MEDS: Multivitamin TAB 1 TAB PO (08:23)
[2018-09-11] MEDS: Thiamine 100 MG TAB PO (08:23)
[2018-09-11] MEDS: amLODIPine 5 MG TAB PO (08:24)
[2018-09-11] MEDS: Metoprolol 50 MG TAB PO ×2 (08:24→20:07)
[2018-09-11] MEDS: Folic Acid 1 MG TAB PO (08:24)
[2018-09-11] MEDS: Aspirin E.C. 81 MG TABEC PO (08:24)
[2018-09-11] MEDS: Nicotine 14 MG/24 HR PATCH TD (08:25)
--- NOTE | 2018-09-11 08:56 | PDOC.CMPRO ---
Care Management Progress Note S/O: Kayla remains pleasant in interaction, she happily reports her cat; lucas woods is being cared for by two of her friends and one of her friends is staying at her apartment as well. She continues to be closely monitored and remains agreeable to SNF placement when ready for discharge per ; [facility] reports SNF coordination may require a few days for prior authorization and report the soonest anticipated determination would be 09/13/18, latest 09/16/18 per MARCELLA Arevalo. CM discussed SWB placement while awaiting SNF placement with Glenda; HEAD RESIDENT and Bianca; PT. Glenda reports Kayla remains acute at this time due to continued diuresis and monitoring of fluid balance. Kayla reported leaving messages for her landlord and discussing home care needs with her support friends. CM will continue to follow. A: 58 year old female admitted to [facility] 09/05/18 for Weakness, Hyponatremia P: Kayla will discharge to SNF; referral pending at [facility]. Kayla's goal remains to recover fully and return home-gaining back her independence and returning to work. CM to continue to provide support discharge planning and disposition.
--- NOTE | 2018-09-11 08:59 | CMPROGNOTE_ITS ---
Care Management Progress Note S/O: Kayla remains pleasant in interaction, she happily reports her cat; lucas woods is being cared for by two of her friends and one of her friends is staying at her apartment as well. She continues to be closely monitored and remains agreeable to SNF placement when ready for discharge per ; [facility] reports SNF coordination may require a few days for prior authorization and report the soonest anticipated determination would be 09/13/18, latest 09/16/18 per MARCELLA Arevalo. CM discussed SWB placement while awaiting SNF placement with Glenda; HUMAN RESOURCES COORDINATOR and Bianca; PT. Glenda reports Kayla remains acute at this time due to continued diuresis and monitoring of fluid balance. Kayla reported leaving messages for her landlord and discussing home care needs with her support friends. CM will continue to follow. A: 58 year old female admitted to [facility] 09/05/18 for Weakness, Hyponatremia P: Kayla will discharge to SNF; referral pending at [facility]. Kayla's goal remains to recover fully and return home-gaining back her independence and returning to work. CM to continue to provide support discharge planning and disposition.
--- NOTE | 2018-09-11 09:47 | OT.INTREAT ---
Date of service: 09/11/18 Time of Service: 09:30 Occupational Therapy Notes Occupational Therapy Inpatient Treatment Note Date: 09/11/18 PRECAUTIONS: Fall, Standard SUBJECTIVE: Pt was sitting in bed when OT arrived. Pt continuously pull sup all four rails on her bed stating that she has to have them up to keep her safe. If 3 railings are up she pulls the fourth railing up herself and notes that she does not feel comfortable without 4 railings. OBJECTIVE: PAIN:no c/o pain. FUNCTIONAL MOBILITY Sit-stand: Min (A), FWW Stand-sit: Min (A), FWW BATHING: Pt denies she reports that she performed this in her bed prior to OT session with a wash cloth. DRESSING: Pt denies donning and doffing clothing stating that she plans to keep her hospital gown on as this is more comfortable for her due to incontinence. Pt was educated on donning and doffing socks in the seated position to conserve her energy and modification for leg movements as she was trying to pull her leg up decreasing her energy for functional mobility. GROOMING: Sitting in bed pt was able to perform application of deodorant (I) with ideal technique. Pt educated on bed mobility with (B) UE and functional (I) while performing ADLS in her bed as she states she is too tired to get up. TOILETING: Pt denies. Pt does state that she has been incontinent multiple times now. EATING: (I) sitting in bed. ASSESSMENT/PLAN: Pt is working towards (I) in ADLS/IADLs. She is fearful of falling when walking and presents with decreased functional activity tolerance. She requires a lot of vc and encouragement throughout session to perform ADLs. TREATMENT CODES/TIME: [id number], 15 minutes Jane Gomez OTR/[facility]
--- NOTE | 2018-09-11 09:58 | OTTR_ITS ---
Date of service: 09/11/18 Time of Service: 09:30 Occupational Therapy Notes Occupational Therapy Inpatient Treatment Note Date: 09/11/18 PRECAUTIONS: Fall, Standard SUBJECTIVE: Pt was sitting in bed when OT arrived. Pt continuously pull sup all four rails on her bed stating that she has to have them up to keep her safe. If 3 railings are up she pulls the fourth railing up herself and notes that she does not feel comfortable without 4 railings. OBJECTIVE: PAIN:no c/o pain. FUNCTIONAL MOBILITY Sit-stand: Min (A), FWW Stand-sit: Min (A), FWW BATHING: Pt denies she reports that she performed this in her bed prior to OT session with a wash cloth. DRESSING: Pt denies donning and doffing clothing stating that she plans to sujit p her hospital gown on as this is more comfortable for her due to incontinence. Pt was educated on donning and doffing socks in the seated position to conserve her energy and modification for leg movements as she was trying to pull her leg up decreasing her energy for functional mobility. GROOMING: Sitting in bed pt was able to perform application of deodorant (I) with ideal technique. Pt educated on bed mobility with (B) UE and functional (I) while performing ADLS in her bed as she states she is too tired to get up. TOILETING: Pt denies. Pt does state that she has been incontinent multiple times now. EATING: (I) sitting in bed. ASSESSMENT/PLAN: Pt is working towards (I) in ADLS/IADLs. She is fearful of falling when walking and presents with decreased functional activity tolerance. She requires a lot of vc and encouragement throughout session to perform ADLs. TREATMENT CODES/TIME: [id number], 15 minutes Jane Gomez OTR/[facility]
[2018-09-11] MEDS: Acetaminophen 325 MG TAB PO (11:07)
[2018-09-11] MEDS: levoFLOXacin 500 MG, levoFLOXacin 250 MG 750 MG PO (11:09)
[2018-09-11] MEDS: traMADol 50 MG TAB 25 MG PO (11:09)
--- NOTE | 2018-09-11 11:55 | PT.INTREAT ---
Date of service: 09/11/18 Time of Service: 11:55 PT Notes Inpatient Physical Therapy Treatment Note [facility] Date: 09/11/18 PRECAUTIONS: Fall SUBJECTIVE: Kayla states that she is feeling better today, although reports multiple times throughout session that she is feeling hungry, but had a good breakfast. In the afternoon she states, I hurt all over, but it's from not walking, I know the difference. She also reports that she would like a laxative to aid in having a bowel movement. OBJECTIVE: Patient donned/doffed shoes, socks, and robe independently. PAIN: See subjective portion of her note. BED MOBILITY/TRANSFERS Supine-sit: I Sit-supine: I Sit-stand: I Stand-sit: I GAIT Assistive Device: FWW Weight bearing: WBAT on L Assist: S Distance: 100' x2 in a.m.; 250' in p.m. Deviation: Standing rest x3 in a.m.; Standing rest x5 and c/o UE fatigue in p.m. STAIRS: Up/down 12x4 using B rails and a step-over pattern with supervision TOILETING: Patient toileted with supervision for transfers from low surface. ASSESSMENT: Patient tolerated session without complaints of pain, although with complaints of increased fatigue with activity requiring frequent rest periods. Patient was able to tolerate a progression in gait distance with FWW support and supervision. Patient would benefit from continued gait and transfer training, as well as strengthening for improved activity tolerance and mobility. PLAN: Continue with PT's POC TREATMENT CODE/TIME: Session 1: 40 minutes; [id number] x3 Session 2: 20 minutes; [id number]
--- NOTE | 2018-09-11 13:33 | PGE_ITS ---
Date of Service Date of service: 09/11/18 Time of Service: 13:32 Assessment and Plan (1) Hyponatremia: Current visit: No Status: Chronic Sodium remains at baseline off IV normal saline. Continue to monitor. (2) Hypothyroidism: Current visit: No Status: Chronic Continue Synthroid at 100 mcg daily. Will need outpatient follow-up of TSH. (3) Anemia: Current visit: Yes Status: Chronic Acute on chronic, Hemoccult negative stools. Hemoglobin and hematocrit improved today to 8.8 and 27.2, in the setting of significant hypothyroidism. Continue to monitor. (4) Smoker: Current visit: No Status: Acute Reports smoking 1/2 ppd. Continue Nictone patch, continue to encourage smoking cessation. PFTs pending. Continues to require supplemental oxygen. Oxygen requirement possibly in the setting of fluid overload vs atelectasis. She is refusing Lasix today. Begin using IS. Continue to wean oxygen to maintain 90% oxygen saturation. Continue to monitor respiratory status. (5) Foot pain, left: Current visit: No Status: Chronic She is being followed by Dr. Sow, Podiatry. Dr. Sow injected her left foot to assess for Palmer's Neuroma, she experienced relief from the injection. She will need to follow up with Dr. Sow as an outpatient. (6) Essential hypertension: Current visit: No Status: Chronic Controlled at present. Continue current regimen with Metoprolol and Amlodipine. Continue to monitor blood pressures. (7) Alcohol use: Current visit: No Status: Acute No signs of alcohol withdrawal. CIWA discontinued. (8) Fluid overload: Current visit: Yes Status: Acute She continues to require oxygen, afebrile, no leukocytosis. Rales to left base. Fluid overload vs atelectasis. She refused lasix today. Begin to use IS. PFTs pending. (9) UTI (urinary tract infection): Current visit: Yes Status: Acute Continue Levaquin for UTI to cover for possible lung process as well. (10) DVT prophylaxis: Current visit: No Status: Acute Subcutaneous heparin. (11) Discharge planning issues: Current visit: No Status: Acute She is a full code. PT recommends SNF, referrals have been sent by care managers. This case was discussed with Dr. Rodriguez who is in agreement. Subjective Interval history since last seen: Kayla reports that her energy level is improving, she has been ambulating in the halls with PT, she feels fatigued after. She denies shortness of breath or wheezing, her cough is improving. She denies chest pain/pressure or palpitations. She is eating and drinking and tolerating her diet, she reports an increased appetite. She denies nausea, vomiting or diarrhea. She continues to have left foot pain and dry, scaling skin on bilateral feet. Nursing reports frequent voids, she denies dysuria or hematuria. She is agreeable to transfer to a rehab when she is ready. Exam Narrative Exam Narrative: General: 58 year old thin, frail appearing female, appears older than stated age, awake and alert, sitting up in bed, answers questions appropriately. HEENT: normocephalic, atraumatic. PERRLA, EOMI, mucous membranes moist. Neck: supple, no JVD. Cardiovascular: Heart has regular rate and rhythm, no murmur appreciated. Respiratory: Respirations even and unlabored, lung sounds diminished with rales to left bases, no wheezing. No coughing noted during exam. Gastrointestinal: Normoactive bowel sounds, abdomen thin, soft, nontender on palpation, no masses appreciated. Extremities: No clubbing, cyanosis or edema to bilateral lower extremities. Fingernails appear unkempt. Bilateral calves without erythema, swelling, te nderness. No discomfort on palpation of left foot. Pedal pulses palpable bilaterally. Objective Objective Clinical Data: Abnormal lab results 09/11/18 09/11/18 Range/Units 06:30 06:30 RBC 2.44 L (4.00-5.20) m/cumm Hgb 8.8 L (12.0-15.5) g/dL Hct 27.2 L (36.0-46.0) % MCV 111.5 H (80-95) fL MCH 36.1 H (27.0-33.0) pg RDW 16.2 H (11.7-14.6) % Sodium 130 L (136-145) mmol/L Chloride 92 L (98-107) mmol/L Vital Signs Temperature 36.9 C 09/11/18 07:16 Temperature Source Tympanic 09/11/18 07:16 Pulse 68 09/11/18 07:16 Pulse Rhythm Regular 09/10/18 20:32 Respiratory Rate 18 09/11/18 07:16 Respiratory Effort 09/10/18 20:32 Respiratory Depth Normal 09/10/18 20:32 Respiratory Pattern Normal 09/10/18 20:32 Blood Pressure 123/69 09/11/18 07:16 Blood Pressure Mean 57 09/05/18 12:49 Blood Pressure Position Supine 09/05/18 10:12 Pulse Oximetry 83 L 09/11/18 11:00 Oxygen Delivery Method Room Air 09/11/18 11:00 Oxygen Flow Rate 0 09/11/18 11:00 Pain Level 8 09/11/18 11:09 Comment 09/10/18 19:39 Intake & Output 09/10/18 09/11/18 09/11/18 23:59 11:59 23:59 Intake Total 1100 / 1630 390 / 390 Balance 1100 / 830 390 / 390 Weight 44 kg Intake: IV Oral 1080 / 1560 390 / 390 Other: Urine Color Yellow Urine Appearance Clear Urine Odor Normal Comment Pt incontinent of bladder x2. Pt was very incontinent Voiding Methods Incontinent Diaper Incontinent Laboratory Results WBC 5.53 k/cumm (4.4-10.8) D 09/11/18 06:30 RBC 2.44 m/cumm (4.00-5.20) L 09/11/18 06:30 Hgb 8.8 g/dL (12.0-15.5) L 09/11/18 06:30 Hct 27.2 % (36.0-46.0) L 09/11/18 06:30 MCV 111.5 fL (80-95) H 09/11/18 06:30 MCH 36.1 pg (27.0-33.0) H 09/11/18 06:30 MCHC 32.4 g/dL (32.0-36.0) 09/11/18 06:30 RDW 16.2 % (11.7-14.6) H 09/11/18 06:30 Plt Count 291 x1000/uL (130-400) 09/11/18 06:30 MPV 9.6 fL (8.0-11.0) 09/11/18 06:30 Immature Gran % 0.2 09/05/18 10:45 Neutrophils % 73.1 09/05/18 10:45 Lymphocytes % 10.3 09/05/18 10:45 Monocytes % 15.4 09/05/18 10:45 Eosinophils % 0.5 09/05/18 10:45 Basophils % 0.5 09/05/18 10:45 Absolute Neutrophils 3.19 k/cumm (1.2-6.7) 09/05/18 10:45 Absolute Lymphocytes 0.45 k/cumm (1.2-3.4) L 09/05/18 10:45 Absolute Monocytes 0.67 k/cumm (0.11-0.7) 09/05/18 10:45 Absolute Eosinophils 0.02 k/cumm (0.0-0.7) 09/05/18 10:45 Absolute Basophils 0.02 k/cumm (0.0-0.2) 09/05/18 10:45 Sodium 130 mmol/L (136-145) L 09/11/18 06:30 Potassium 4.1 mmol/L (3.5-5.1) 09/11/18 06:30 Chloride 92 mmol/L (98-107) L 09/11/18 06:30 Carbon Dioxide 30.7 mmol/L (21.0-32.0) 09/11/18 06:30 Anion Gap 7.3 mmol/L (3-11) 09/11/18 06:30 BUN 13 mg/dL (7-18) 09/11/18 06:30 Creatinine 0.60 mg/dL (0.55-1.02) 09/11/18 06:30 Estimated GFR/1.73 m2 >= 60.00 (mL/min/1.73m2) 09/11/18 06:30 Glucose 100 mg/dL (70-100) D 09/11/18 06:30 Hemoglobin A1c 4.6 % (4.5-6.2) 09/07/18 06:30 Serum Osmolality 258 mOsm/kg (275-295) L 09/05/18 10:45 Calcium 9.0 mg/dL (8.5-10.1) 09/11/18 06:30 Ionized Calcium 1.09 mmol/L (1.12-1.32) L 09/08/18 08:10 Magnesium 2.1 mg/dL (1.8-2.4) 09/11/18 06:30 Iron 106 ug/dL (50-175) 09/06/18 06:20 TIBC 113 ug/dL (250-450) L 09/06/18 06:20 Transferrin % Sat 94 % (15-50) H 09/06/18 06:20 Ferritin 1962 ng/mL (8-388) H 09/06/18 06:20 Total Bilirubin 0.6 mg/dL (0.2-1.0) 09/06/18 06:20 AST 80 U/L (15-37) H 09/06/18 06:20 ALT 68 U/L (12-78) 09/06/18 06:20 Alkaline Phosphatase 135 U/L (46-116) H 09/06/18 06:20 Total Protein 5.0 g/dL (6.4-8.2) L 09/06/18 06:20 Albumin 2.6 g/dL (3.4-5.0) L 09/06/18 06:20 Vitamin B12 698 pg/mL (193-986) 09/06/18 06:20 Folate 5.7 ng/mL (8.6-20.0) L 09/06/18 06:20 TSH 25.23 uIU/mL (0.358-3.74) H 09/05/18 10:45 Free T4 0.88 ng/dL (0.76-1.46) 09/05/18 10:45 Urine Color Yellow (Yellow) 09/08/18 16:15 Urine Clarity Sl cloudy 09/08/18 16:15 Urine pH 6.5 (5-8) 09/08/18 16:15 Ur Specific [place] 1.020 (1.005-1.025) 09/08/18 16:15 Urine Protein Negative mg/dL (Negative) 09/08/18 16:15 Urine Ketones Negative mg/dL (Negative) 09/08/18 16:15 Urine Blood Trace-lysed (Negative) H 09/08/18 16:15 Urine Nitrite Positive (Negative) H 09/08/18 16:15 Urine Bilirubin Negative (Negative) 09/08/18 16:15 Urine Urobilinogen 0.2 EU/dL (Up TO 0.2) 09/08/18 16:15 Ur Leukocyte Esterase Moderate (Negative) H 09/08/18 16:15 Urine RBC 0-2 (0-2) 09/08/18 16:15 Urine WBC >50 HPF (0-5) 09/08/18 16:15 Ur Epithelial Cells Few HPF (Negative) 09/08/18 16:15 Urine Crystals Negative HPF (Negative) 09/08/18 16:15 Urine Bacteria Many HPF (Negative) 09/08/18 16:15 Urine Casts Negative LPF (Negative) 09/08/18 16:15 Urine Mucus Negative (Negative) 09/08/18 16:15 Urine Other Negative (Negative) 09/08/18 16:15 Ur Culture Indicated? Yes 09/08/18 16:15 Urine Osmolality 432 mosm/Kg (150-1150) 09/05/18 19:51 Ur Random Sodium 6 mmol/L 09/05/18 19:51 Urine Glucose Negative mg/dL (Negative) 09/08/18 16:15 Ethyl Alcohol < 3.0 mg/dL (<3) 09/05/18 10:45
[2018-09-11] MEDS: Milk of Magnesia 30 ML CUP PO (15:19)
[2018-09-11] MEDS: Enoxaparin 40 MG/0.4 ML SYR SC (15:19)
[2018-09-11] MEDS: Docusate Sodium 100 MG CAP PO (18:47)
[2018-09-11] MEDS: Polyethylene Glycol 3350 17 GM PACKET PO (18:53)
[2018-09-12] MEDS: Levothyroxine 100 MCG TAB PO (06:32)
[2018-09-12 06:43] VITALS: BP 136/76; PULSE 69; RESP 18; TEMP 36.4; O2SAT 91
[2018-09-12 06:54] LABS: HCT 25.7 % (36.0-46.0); HGB 8.6 g/dL (12.0-15.5); Mean Corp. HGB Concentration 33.5 g/dL (32.0-36.0); Mean Corpuscular Hemoglobin 37.2 pg (27.0-33.0); Mean Corpuscular Volume 111.3 fL (80-95); Mean Platelet Volume 9.4 fL (8.0-11.0); Platelet Count 317 x1000/uL (130-400); RBC 2.31 m/cumm (4.00-5.20); RBC Distribution Width 16.1 % (11.7-14.6); White Blood Cell Count 6.97 k/cumm (4.4-10.8)
[2018-09-12 07:11] LABS: BUN 11 mg/dL (7-18); CREATININE 0.57 mg/dL (0.55-1.02); Calcium 8.6 mg/dL (8.5-10.1); Chloride 92 mmol/L (98-107); Glucose 88 mg/dL (70-100); Magnesium 1.9 mg/dL (1.8-2.4); Potassium 3.7 mmol/L (3.5-5.1); Sodium 127 mmol/L (136-145)
[2018-09-12 07:35] VITALS: O2SAT 94
[2018-09-12] MEDS: Multivitamin TAB 1 TAB PO (07:37)
[2018-09-12] MEDS: Omeprazole 20 MG CAPCR PO (07:37)
[2018-09-12] MEDS: Folic Acid 1 MG TAB PO (07:37)
[2018-09-12] MEDS: Metoprolol 50 MG TAB PO ×2 (07:37→20:02)
[2018-09-12] MEDS: Lachydrin 12% LOTION 225 GM BTL TP (07:38)
[2018-09-12] MEDS: Gabapentin 300 MG CAP PO ×2 (07:38→20:02)
[2018-09-12] MEDS: amLODIPine 5 MG TAB PO (07:38)
[2018-09-12] MEDS: Aspirin E.C. 81 MG TABEC PO (07:38)
[2018-09-12] MEDS: Thiamine 100 MG TAB PO (07:38)
[2018-09-12] MEDS: Magnesium Oxide 400 MG TAB 800 MG PO ×2 (07:38→20:02)
[2018-09-12] MEDS: Magnesium Oxide 400 MG TAB PO (09:22)
[2018-09-12] MEDS: POTASSIUM CHLORIDE 20 MEQ, POTASSIUM CHLORIDE 10 MEQ 30 MEQ PO (09:22)
--- NOTE | 2018-09-12 09:50 | OT.INTREAT ---
Date of service: 09/12/18 Time of Service: 09:20 Occupational Therapy Notes Occupational Therapy Inpatient Treatment Note Date: 09/12/18 PRECAUTIONS: Fall, Standard SUBJECTIVE: Pt was sitting in bed when OT arrived. She was agreeable to OT session and states that she would like to go walking this morning. OBJECTIVE: PAIN:no c/o pain FUNCTIONAL MOBILITY Sit-stand: (S) Stand-sit: (S) FWW Bed-Chair: SBA, FWW Chair-bed: SBA, FWW BATHING: Pt denies as she reports that she washed herself up prior to OT arrival. DRESSING: (I) don and doffing (B) socks and shoes with ideal technique. (I) [facility] gown. GROOMING: Standing at sink, pt denies FWW but has it close by if needed. (I) with brushing hair, decreased safety awareness when reaching functionally for items at the sink. TOILETING: Device: Toilet Assist: (I) ASSESSMENT/PLAN: Pt is functionally able to perform her ADLs with increased (I) at this time. She still presents with decreased safety awareness but her functional activity tolerance is progressing. She is able to perform her toileting routine (I) at this time. She performed functional mobility throughout her room and was able to perform ideal weight shifting when opening and closing a bag with min vc. TREATMENT CODES/TIME: [id number], 15 minutes (09:20) Jane Gomez OTR/[facility]
--- NOTE | 2018-09-12 10:00 | OTTR_ITS ---
Date of service: 09/12/18 Time of Service: 09:20 Occupational Therapy Notes Occupational Therapy Inpatient Treatment Note Date: 09/12/18 PRECAUTIONS: Fall, Standard SUBJECTIVE: Pt was sitting in bed when OT arrived. She was agreeable to OT session and states that she would like to go walking this morning. OBJECTIVE: PAIN:no c/o pain FUNCTIONAL MOBILITY Sit-stand: (S) Stand-sit: (S) FWW Bed-Chair: SBA, FWW Chair-bed: SBA, FWW BATHING: Pt denies as she reports that she washed herself up prior to OT arrival. DRESSING: (I) don and doffing (B) socks and shoes with ideal technique. (I) [facility] gown. GROOMING: Standing at sink, pt denies FWW but has it close by if needed. (I) with brushing hair, decreased safety awareness when reaching functionally for items at the sink. TOILETING: Device: Toilet Assist: (I) ASSESSMENT/PLAN: Pt is functionally able to perform her ADLs with increased (I) at this time. She still presents with decreased safety awareness but her functional activity tolerance is progressing. She is able to perform her toileting routine (I) at this time. She performed functional mobility throughout her room and was able to perform ideal weight shifting when opening and closing a bag with min vc. TREATMENT CODES/TIME: [id number], 15 minutes (09:20) Jane Gomez OTR/[facility]
[2018-09-12] MEDS: Nicotine 21 MG/24 HR PATCH TD (10:11)
[2018-09-12 11:02] VITALS: BP 101/62; PULSE 69; RESP 16; TEMP 37.1; O2SAT 98
[2018-09-12] MEDS: levoFLOXacin 500 MG, levoFLOXacin 250 MG 750 MG PO (12:38)
--- NOTE | 2018-09-12 14:09 | PGE_ITS ---
Date of Service Date of service: 09/12/18 Time of Service: 13:55 Assessment and Plan (1) Hyponatremia: Current visit: No Status: Chronic Sodium remains slightly low today at 127, she has been off IV normal saline. Restart IV normal saline in the setting of hyponatremia with hypochloremia. Reassess BMP in the morning. (2) Hypothyroidism: Current visit: No Status: Chronic Continue Synthroid at 100 mcg daily. Will need outpatient follow-up of TSH. (3) Anemia: Current visit: Yes Status: Chronic Acute on chronic, Hemoccult negative stools. Hemoglobin and hematocrit low but stable in the setting of significant hypothyroidism. Continue to monitor. (4) Smoker: Current visit: No Status: Acute Reports smoking 1/2 ppd. Continue Nictone patch, continue to encourage smoking cessation. PFTs pending. Oxygen saturation improving. Continue to wean oxygen to maintain 90% oxygen saturation. Continue to monitor respiratory status. Encourage IS. (5) Foot pain, left: Current visit: No Status: Chronic She is being followed by Dr. Sow, Podiatry. Dr. Sow injected her left foot to assess for Palmer's Neuroma, she experienced relief from the injection. She will need to follow up with Dr. Sow as an outpatient. (6) Essential hypertension: Current visit: No Status: Chronic Controlled at present. Continue current regimen with Metoprolol and Aml odipine. Continue to monitor blood pressures. (7) Alcohol use: Current visit: No Status: Acute No signs of alcohol withdrawal. CIWA discontinued. (8) Fluid overload: Current visit: Yes Status: Acute Oxygen requirement decreasing, she is afebrile, no leukocytosis. Does not appear to be fluid overloaded today. Encourage IS. PFTs pending. (9) UTI (urinary tract infection): Current visit: Yes Status: Acute Continue Levaquin for UTI to cover for possible lung process as well. (10) DVT prophylaxis: Current visit: No Status: Acute Subcutaneous heparin. (11) Discharge planning issues: Current visit: No Status: Acute She is a full code. PT recommends SNF, referrals have been sent by care managers. This case was discussed with Dr. Rodriguez who is in agreement. Subjective Interval history since last seen: Kayla is feeling tired today. She reports that she has been ambulating with PT. She continues to have left foot pain, not as intense as when she presented to the hospital, she would like to see Podiatry again. She denies shortness of breath, coughing, wheezing, chest pain/pressure or palpitations. She is eating and drinking and tolerating her diet, she reports an increased appetite. She denies nausea, vomiting or diarrhea. She admits to urinary urgency. She is being treated for a UTI. She denies dysuria or hematuria. Exam Narrative Exam Narrative: General: 58 year old thin, frail appearing female, appears older than stated age, awake and alert, sitting up in bed, answers questions appropriately. HEENT: normocephalic, atraumatic. PERRLA, EOMI, mucous membranes moist. Neck: supple, no JVD. Cardiovascular: Heart has regular rate and rhythm, no murmur appreciated. Respiratory: Respirations even and unlabored, lung sounds diminished at bases bilaterally, no rales or wheezing. No coughing noted during exam. Gastrointestinal: Normoactive bowel sounds, abdomen thin, soft, nontender on palpation, no masses appreciated. Extremities: No clubbing, cyanosis or edema to bilateral lower extremities. Bilateral calves without erythema, swelling, tenderness. No discomfort on palpation of left foot. Pedal pulses palpable bilaterally. Objective Objective Clinical Data: Abnormal lab results 09/12/18 09/12/18 Range/Units 06:11 06:11 RBC 2.31 L (4.00-5.20) m/cumm Hgb 8.6 L (12.0-15.5) g/dL Hct 25.7 L (36.0-46.0) % MCV 111.3 H (80-95) fL MCH 37.2 H (27.0-33.0) pg RDW 16.1 H (11.7-14.6) % Sodium 127 L (136-145) mmol/L Chloride 92 L (98-107) mmol/L Vital Signs Temperature 37.1 C 09/12/18 11:02 Temperature Source Tympanic 09/12/18 11:02 Pulse 69 09/12/18 11:02 Pulse Rhythm Regular 09/12/18 07:48 Respiratory Rate 16 09/12/18 11:02 Respiratory Effort Non-Labored 09/12/18 07:48 Respiratory Depth Normal 09/12/18 07:48 Respiratory Pattern Normal 09/12/18 07:48 Blood Pressure 101/62 05/02/19 11:02 Blood Pressure Mean 57 09/05/18 12:49 Blood Pressure Position Supine 09/05/18 10:12 Pulse Oximetry 98 09/12/18 11:02 Oxygen Delivery Method Nasal Cannula 09/12/18 11:02 Oxygen Flow Rate 1 09/12/18 11:02 Pain Level 8 09/11/18 11:09 Comment 09/10/18 19:39 Intake & Output 09/11/18 09/12/18 09/12/18 23:59 11:59 23:59 Intake Total 600 / 1000 480 / 960 480 / 960 Balance 600 / 1000 480 / 960 480 / 960 Weight 44.2 kg Intake: Oral 600 / 990 480 / 960 480 / 960 Other: Urine Color Yellow Urine Appearance Clear Clear Urine Odor None Stool Occult Blood Negative Stool Size Small Small Stool Characteristics Soft Soft Voiding Methods Toilet Toilet Laboratory Results WBC 6.97 k/cumm (4.4-10.8) 09/12/18 06:11 RBC 2.31 m/cumm (4.00-5.20) L 09/12/18 06:11 Hgb 8.6 g/dL (12.0-15.5) L 09/12/18 06:11 Hct 25.7 % (36.0-46.0) L 09/12/18 06:11 MCV 111.3 fL (80-95) H 09/12/18 06:11 MCH 37.2 pg (27.0-33.0) H 09/12/18 06:11 MCHC 33.5 g/dL (32.0-36.0) 09/12/18 06:11 RDW 16.1 % (11.7-14.6) H 09/12/18 06:11 Plt Count 317 x1000/uL (130-400) 09/12/18 06:11 MPV 9.4 fL (8.0-11.0) 09/12/18 06:11 Immature Gran % 0.2 09/05/18 10:45 Neutrophils % 73.1 09/05/18 10:45 Lymphocytes % 10.3 09/05/18 10:45 Monocytes % 15.4 09/05/18 10:45 Eosinophils % 0.5 09/05/18 10:45 Basophils % 0.5 09/05/18 10:45 Absolute Neutrophils 3.19 k/cumm (1.2-6.7) 09/05/18 10:45 Absolute Lymphocytes 0.45 k/cumm (1.2-3.4) L 09/05/18 10:45 Absolute Monocytes 0.67 k/cumm (0.11-0.7) 09/05/18 10:45 Absolute Eosinophils 0.02 k/cumm (0.0-0.7) 09/05/18 10:45 Absolute Basophils 0.02 k/cumm (0.0-0.2) 09/05/18 10:45 Sodium 127 mmol/L (136-145) L 09/12/18 06:11 Potassium 3.7 mmol/L (3.5-5.1) 09/12/18 06:11 Chloride 92 mmol/L (98-107) L 09/12/18 06:11 Carbon Dioxide 30.0 mmol/L (21.0-32.0) 09/12/18 06:11 Anion Gap 5.0 mmol/L (3-11) 09/12/18 06:11 BUN 11 mg/dL (7-18) 09/12/18 06:11 Creatinine 0.57 mg/dL (0.55-1.02) 09/12/18 06:11 Estimated GFR/1.73 m2 >= 60.00 (mL/min/1.73m2) 09/12/18 06:11 Glucose 88 mg/dL (70-100) 09/12/18 06:11 Hemoglobin A1c 4.6 % (4.5-6.2) 09/07/18 06:30 Serum Osmolality 258 mOsm/kg (275-295) L 09/05/18 10:45 Calcium 8.6 mg/dL (8.5-10.1) 09/12/18 06:11 Ionized Calcium 1.09 mmol/L (1.12-1.32) L 09/08/18 08:10 Magnesium 1.9 mg/dL (1.8-2.4) 09/12/18 06:11 Iron 106 ug/dL (50-175) 09/06/18 06:20 TIBC 113 ug/dL (250-450) L 09/06/18 06:20 Transferrin % Sat 94 % (15-50) H 09/06/18 06:20 Ferritin 1962 ng/mL (8-388) H 09/06/18 06:20 Total Bilirubin 0.6 mg/dL (0.2-1.0) 09/06/18 06:20 AST 80 U/L (15-37) H 09/06/18 06:20 ALT 68 U/L (12-78) 09/06/18 06:20 Alkaline Phosphatase 135 U/L (46-116) H 09/06/18 06:20 Total Protein 5.0 g/dL (6.4-8.2) L 09/06/18 06:20 Albumin 2.6 g/dL (3.4-5.0) L 09/06/18 06:20 Vitamin B12 698 pg/mL (193-986) 09/06/18 06:20 Folate 5.7 ng/mL (8.6-20.0) L 09/06/18 06:20 TSH 25.23 uIU/mL (0.358-3.74) H 09/05/18 10:45 Free T4 0.88 ng/dL (0.76-1.46) 09/05/18 10:45 Urine Color Yellow (Yellow) 09/08/18 16:15 Urine Clarity Sl cloudy 09/08/18 16:15 Urine pH 6.5 (5-8) 09/08/18 16:15 Ur Specific [place] 1.020 (1.005-1.025) 09/08/18 16:15 Urine Protein Negative mg/dL (Negative) 09/08/18 16:15 Urine Ketones Negative mg/dL (Negative) 09/08/18 16:15 Urine Blood Trace-lysed (Negative) H 09/08/18 16:15 Urine Nitrite Positive (Negative) H 09/08/18 16:15 Urine Bilirubin Negative (Negative) 09/08/18 16:15 Urine Urobilinogen 0.2 EU/dL (Up TO 0.2) 09/08/18 16:15 Ur Leukocyte Esterase Moderate (Negative) H 09/08/18 16:15 Urine RBC 0-2 (0-2) 09/08/18 16:15 Urine WBC >50 HPF (0-5) 09/08/18 16:15 Ur Epithelial Cells Few HPF (Negative) 09/08/18 16:15 Urine Crystals Negative HPF (Negative) 09/08/18 16:15 Urine Bacteria Many HPF (Negative) 09/08/18 16:15 Urine Casts Negative LPF (Negative) 09/08/18 16:15 Urine Mucus Negative (Negative) 09/08/18 16:15 Urine Other Negative (Negative) 09/08/18 16:15 Ur Culture Indicated? Yes 09/08/18 16:15 Urine Osmolality 432 mosm/Kg (150-1150) 09/05/18 19:51 Ur Random Sodium 6 mmol/L 09/05/18 19:51 Urine Glucose Negative mg/dL (Negative) 09/08/18 16:15 Ethyl Alcohol < 3.0 mg/dL (<3) 09/05/18 10:45
[2018-09-12] MEDS: Normal Saline 1,000 ML 50 ML IV (14:33)
--- NOTE | 2018-09-12 14:36 | PT.INTREAT ---
Date of service: 09/12/18 Time of Service: 14:37 PT Notes Inpatient Physical Therapy Treatment Note [facility] Date: 09/12/18 PRECAUTIONS: Fall SUBJECTIVE: Kayla states that she is feeling better, emotionally, today, as she has taken care of several personal matters that she has been worried about. She also reports that she has been getting up a lot to use the bathroom today. OBJECTIVE: Patient donned/doffed shoes, socks, and robe independently. PAIN: Patient reports pain in L foot and neck BED MOBILITY/TRANSFERS Supine-sit: I Sit-supine: I Sit-stand: I Stand-sit: I GAIT Assistive Device: FWW Weight bearing: WBAT on L Assist: S Distance: 350' in a.m.; 15' x2 in p.m. Deviation: Multiple standing rests and cueing for posture in a.m. THEREX: Patient completed a standing LE strengthening program, as per flow sheet. She also completed functional [id number] exercise x10. Patient requires significant rests between exercises due to fatigue. TOILETING: Patient toileted independently ASSESSMENT: Patient tolerated session with complaints of L foot and neck pain, as well as with complaints of increased fatigue with activity requiring frequent rest periods. Patient was able to tolerate a progression in gait distance with FWW support and supervision. Patient would benefit from continued gait and transfer training, as well as strengthening for improved activity tolerance and mobility. PLAN: Continue with PT's POC TREATMENT CODE/TIME: Session 1: 25 minutes; [id number] x2 Session 2: 35 minutes; [id number], [id number]
--- NOTE | 2018-09-12 14:43 | PTTR_ITS ---
Date of service: 09/12/18 Time of Service: 14:37 PT Notes Inpatient Physical Therapy Treatment Note [facility] Date: 09/12/18 PRECAUTIONS: Fall SUBJECTIVE: Kayla states that she is feeling better, emotionally, today, as she has taken care of several personal matters that she has been worried about. She also reports that she has been getting up a lot to use the bathroom today. OBJECTIVE: Patient donned/doffed shoes, socks, and robe independently. PAIN: Patient reports pain in L foot and neck BED MOBILITY/TRANSFERS Supine-sit: I Sit-supine: I Sit-stand: I Stand-sit: I GAIT Assistive Device: FWW Weight bearing: WBAT on L Assist: S Distance: 350' in a.m.; 15' x2 in p.m. Deviation: Multiple standing rests and cueing for posture in a.m. THEREX: Patient completed a standing LE strengthening program, as per flow sheet. She also completed functional [id number] exercise x10. Patient re quires significant rests between exercises due to fatigue. TOILETING: Patient toileted independently ASSESSMENT: Patient tolerated session with complaints of L foot and neck pain, as well as with complaints of increased fatigue with activity requiring frequent rest periods. Patient was able to tolerate a progression in gait distance with FWW support and supervision. Patient would benefit from continued gait and transfer training, as well as strengthening for improved activity tolerance and mobility. PLAN: Continue with PT's POC TREATMENT CODE/TIME: Session 1: 25 minutes; [id number] x2 Session 2: 35 minutes; [id number], [id number]
--- NOTE | 2018-09-12 15:01 | PDOC.CMPRO ---
Care Management Progress Note S/O: Kayla remains agreeable to SNF placement when ready for discharge per MD; [facility] reports anticipating ability to provide bed offer as soon as tomorrow. CM awaits determination-Mickey RUELAS at [facility] working with Kayla's insurance to complete prior authorization. Kayla remains pleasant in interaction and continues to work with PT/OT, while awaiting placement at the rehab. Provider reports Kayla remains acute due to continued monitoring and medication adjustments. CM continues to follow. A: 58 year old female admitted to [facility] 09/05/18 for Weakness, Hyponatremia P: Kayla will discharge to [facility] when ready per MD. Kayla's goal remains to recover fully and return home-gaining back her independence and returning to work. CM to continue to provide support discharge planning and disposition.
--- NOTE | 2018-09-12 15:18 | CMPROGNOTE_ITS ---
Care Management Progress Note S/O: Kayla remains agreeable to SNF placement when ready for discharge per MD; [facility] reports anticipating ability to provide bed offer as soon as tomorrow. CM awaits determination-Mickey RUELAS at [facility] working with Kayla's insurance to complete prior authorization. Kayla remains pleasant in interaction and continues to work with PT/OT, while awaiting placement at the rehab. Provider reports Kayla remains acute due to continued monitoring and medication adjustments. CM continues to follow. A: 58 year old female admitted to [facility] 09/05/18 for Weakness, Hyponatremia P: Kayla will discharge to [facility] when ready per MD. Kayla's goal remains to recover fully and return home-gaining back her independence and returning to work. CM to continue to provide support discharge planning and disposition.
[2018-09-12 15:38] VITALS: BP 124/72; PULSE 86; RESP 18; TEMP 36.5; O2SAT 97
[2018-09-12] MEDS: Enoxaparin 40 MG/0.4 ML SYR SC (16:01)
[2018-09-12] MEDS: Acetaminophen 325 MG TAB PO (16:12)
[2018-09-12 18:50] VITALS: BP 114/70; PULSE 84; RESP 18; TEMP 36.7; O2SAT 96
[2018-09-13] VITALS (12 sets, daily range): BP systolic 120–146; BP diastolic 67–80; PULSE 69–101; RESP 10–20; TEMP 36.2–37.4; O2SAT 84–96
[2018-09-13] MEDS: Levothyroxine 100 MCG TAB PO (05:49)
[2018-09-13 07:02] LABS: HCT 27.4 % (36.0-46.0); Mean Corp. HGB Concentration 32.1 g/dL (32.0-36.0); Mean Corpuscular Hemoglobin 36.2 pg (27.0-33.0); Mean Corpuscular Volume 112.8 fL (80-95); Mean Platelet Volume 9.6 fL (8.0-11.0); Platelet Count 369 x1000/uL (130-400); RBC 2.43 m/cumm (4.00-5.20); RBC Distribution Width 16.8 % (11.7-14.6)
[2018-09-13 07:11] LABS: Anion Gap 7.4 mmol/L (3-11); BUN 7 mg/dL (7-18); CO2 27.6 mmol/L (21.0-32.0); CREATININE 0.52 mg/dL (0.55-1.02); Calcium 8.7 mg/dL (8.5-10.1); Chloride 97 mmol/L (98-107); Glucose 117 mg/dL (70-100); Magnesium 1.8 mg/dL (1.8-2.4); Potassium 3.6 mmol/L (3.5-5.1); Sodium 132 mmol/L (136-145)
[2018-09-13 07:25] LABS: HGB 8.8 g/dL (12.0-15.5)
[2018-09-13] MEDS: Nicotine 21 MG/24 HR PATCH TD (07:56)
[2018-09-13] MEDS: Gabapentin 300 MG CAP PO ×2 (07:59→19:49)
[2018-09-13] MEDS: Magnesium Oxide 400 MG TAB 800 MG PO ×2 (07:59→19:49)
[2018-09-13] MEDS: Omeprazole 20 MG CAPCR PO (07:59)
[2018-09-13] MEDS: Lachydrin 12% LOTION 225 GM BTL TP (07:59)
[2018-09-13] MEDS: amLODIPine 5 MG TAB PO (07:59)
[2018-09-13] MEDS: Aspirin E.C. 81 MG TABEC PO (07:59)
[2018-09-13] MEDS: Metoprolol 50 MG TAB PO ×2 (07:59→19:49)
[2018-09-13] MEDS: Folic Acid 1 MG TAB PO (08:35)
[2018-09-13] MEDS: Thiamine 100 MG TAB PO (08:35)
[2018-09-13] MEDS: levoFLOXacin 500 MG, levoFLOXacin 250 MG 750 MG PO (09:46)
[2018-09-13] MEDS: Potassium Chloride 20 MEQ TABCR 40 MEQ PO (09:46)
[2018-09-13] MEDS: Furosemide 20 MG/2 ML VIAL IVP (09:49)
--- NOTE | 2018-09-13 10:11 | PGE_ITS ---
Date of Service Date of service: 09/13/18 Time of Service: 09:57 Assessment and Plan (1) Hypoxia: Current visit: Yes Status: Acute new, minimal 02 requirment. CXR from 09/09 with small effusions and bilateral interstial prominence. ddx would include pulmonary edema vs infection vs obstructive lung disease or atelectasis. she will received a dose of lasix today, she is also on levaquin for UTI which should cover any pulmonary source as well. she is awaiting further PFT testing. (2) UTI (urinary tract infection): Current visit: Yes Status: Acute e. coli uti- on day 4 of levaquin. will plan on 5 day course to end of 09/14 (3) Anemia: Current visit: Yes Status: Chronic anemia of chronic disease, with likely macrocytic anemia in setting alcohol abuse. hgb has been stable. will supplement thiamine and folate (4) Alcohol use: Current visit: No Status: Acute no evidence withdrawal. continue thiamine and folate (5) Hypothyroidism: Current visit: No Status: Chronic TSH 29.7 on admission. she has been restarted on her levothyroxine. TSH mayito need to be repeated by mid October (6) DVT prophylaxis: Current visit: No Status: Acute continue sub q lovenox Subjective Interval history since last seen: KARIE overnight. patient sitting comfortably in chair at time of exam. She continues to require minimal supplemental 02 to maintaing 02 sats in the low 90s. She denies any dyspnea, cough, fevers, chills. Exam Narrative Exam Narrative: NAD: NAD, sitting up in chair, breathing on room air HEENT: NCAT, MMM CV: RRR, nl s1 and s2, no murmur LUNGS: normal work of breathing, CTAB, diminished at the based, no wheeze ABD: soft, NT, ND EXT: symmetrical, no edema NEURO: alert, oriented, non focal Objective Objective Clinical Data: Abnormal lab results 09/13/18 09/13/18 Range/Units 06:13 06:13 RBC 2.43 L (4.00-5.20) m/cumm Hgb 8.8 L (12.0-15.5) g/dL Hct 27.4 L (36.0-46.0) % MCV 112.8 H (80-95) fL MCH 36.2 H (27.0-33.0) pg RDW 16.8 H (11.7-14.6) % Sodium 132 L (136-145) mmol/L Chloride 97 L (98-107) mmol/L Creatinine 0.52 L (0.55-1.02) mg/dL Glucose 117 H (70-100) mg/dL Vital Signs Temperature 36.2 C L 09/13/18 07:15 Temperature Source Tympanic 09/13/18 07:15 Pulse 87 09/13/18 02:59 Pulse Rhythm Regular 09/12/18 15:50 Respiratory Rate 10 L 09/13/18 07:15 Respiratory Effort Non-Labored 09/12/18 21:17 Respiratory Depth Normal 09/12/18 21:17 Respiratory Pattern Normal 09/12/18 21:17 Blood Pressure 136/73 09/13/18 07:15 Blood Pressure Mean 57 09/05/18 12:49 Blood Pressure Position Supine 09/05/18 10:12 Pulse Oximetry 90 L 09/13/18 08:20 Oxygen Delivery Method Room Air 09/13/18 08:20 Oxygen Flow Rate 0 09/13/18 08:20 Pain Level 0 09/12/18 18:50 Comment 09/10/18 19:39 Intake & Output 09/12/18 09/12/18 09/13/18 11:59 23:59 11:59 Intake Total 480 / 1440 960 / 1440 Balance 480 / 1440 960 / 1440 Weight 44.2 kg 44 kg Intake: Oral 480 / 1440 960 / 1440 Other: Urine Color Yellow Pale Urine Appearance Clear Clear Clear Urine Odor None Comment pt incontinent of a large amount of urine and voided in the toilet Stool Occult Blood Negative Stool Size Small Stool Characteristics Soft Soft Soft Formed Formed Brown Voiding Methods Toilet Toilet Toilet Diaper Incontinent Laboratory Results WBC 9.40 k/cumm (4.4-10.8) D 09/13/18 06:13 RBC 2.43 m/cumm (4.00-5.20) L 09/13/18 06:13 Hgb 8.8 g/dL (12.0-15.5) L 09/13/18 06:13 Hct 27.4 % (36.0-46.0) L 09/13/18 06:13 MCV 112.8 fL (80-95) H 09/13/18 06:13 MCH 36.2 pg (27.0-33.0) H 09/13/18 06:13 MCHC 32.1 g/dL (32.0-36.0) 09/13/18 06:13 RDW 16.8 % (11.7-14.6) H 09/13/18 06:13 Plt Count 369 x1000/uL (130-400) 09/13/18 06:13 MPV 9.6 fL (8.0-11.0) 09/13/18 06:13 Immature Gran % 0.2 09/05/18 10:45 Neutrophils % 73.1 09/05/18 10:45 Lymphocytes % 10.3 09/05/18 10:45 Monocytes % 15.4 09/05/18 10:45 Eosinophils % 0.5 09/05/18 10:45 Basophils % 0.5 09/05/18 10:45 Absolute Neutrophils 3.19 k/cumm (1.2-6.7) 09/05/18 10:45 Absolute Lymphocytes 0.45 k/cumm (1.2-3.4) L 09/05/18 10:45 Absolute Monocytes 0.67 k/cumm (0.11-0.7) 09/05/18 10:45 Absolute Eosinophils 0.02 k/cumm (0.0-0.7) 09/05/18 10:45 Absolute Basophils 0.02 k/cumm (0.0-0.2) 09/05/18 10:45 Sodium 132 mmol/L (136-145) L 09/13/18 06:13 Potassium 3.6 mmol/L (3.5-5.1) 09/13/18 06:13 Chloride 97 mmol/L (98-107) L 09/13/18 06:13 Carbon Dioxide 27.6 mmol/L (21.0-32.0) 09/13/18 06:13 Anion Gap 7.4 mmol/L (3-11) 09/13/18 06:13 BUN 7 mg/dL (7-18) 09/13/18 06:13 Creatinine 0.52 mg/dL (0.55-1.02) L 09/13/18 06:13 Estimated GFR/1.73 m2 >= 60.00 (mL/min/1.73m2) 09/13/18 06:13 Glucose 117 mg/dL (70-100) H 09/13/18 06:13 Hemoglobin A1c 4.6 % (4.5-6.2) 09/07/18 06:30 Serum Osmolality 258 mOsm/kg (275-295) L 09/05/18 10:45 Calcium 8.7 mg/dL (8.5-10.1) 09/13/18 06:13 Ionized Calcium 1.09 mmol/L (1.12-1.32) L 09/08/18 08:10 Magnesium 1.8 mg/dL (1.8-2.4) 09/13/18 06:13 Iron 106 ug/dL (50-175) 09/06/18 06:20 TIBC 113 ug/dL (250-450) L 09/06/18 06:20 Transferrin % Sat 94 % (15-50) H 09/06/18 06:20 Ferritin 1962 ng/mL (8-388) H 09/06/18 06:20 Total Bilirubin 0.6 mg/dL (0.2-1.0) 09/06/18 06:20 AST 80 U/L (15-37) H 09/06/18 06:20 ALT 68 U/L (12-78) 09/06/18 06:20 Alkaline Phosphatase 135 U/L (46-116) H 09/06/18 06:20 Total Protein 5.0 g/dL (6.4-8.2) L 09/06/18 06:20 Albumin 2.6 g/dL (3.4-5.0) L 09/06/18 06:20 Vitamin B12 698 pg/mL (193-986) 09/06/18 06:20 Folate 5.7 ng/mL (8.6-20.0) L 09/06/18 06:20 TSH 25.23 uIU/mL (0.358-3.74) H 09/05/18 10:45 Free T4 0.88 ng/dL (0.76-1.46) 09/05/18 10:45 Urine Color Yellow (Yellow) 09/08/18 16:15 Urine Clarity Sl cloudy 09/08/18 16:15 Urine pH 6.5 (5-8) 09/08/18 16:15 Ur Specific [place] 1.020 (1.005-1.025) 09/08/18 16:15 Urine Protein Negative mg/dL (Negative) 09/08/18 16:15 Urine Ketones Negative mg/dL (Negative) 09/08/18 16:15 Urine Blood Trace-lysed (Negative) H 09/08/18 16:15 Urine Nitrite Positive (Negative) H 09/08/18 16:15 Urine Bilirubin Negative (Negative) 09/08/18 16:15 Urine Urobilinogen 0.2 EU/dL (Up TO 0.2) 09/08/18 16:15 Ur Leukocyte Esterase Moderate (Negative) H 09/08/18 16:15 Urine RBC 0-2 (0-2) 09/08/18 16:15 Urine WBC >50 HPF (0-5) 09/08/18 16:15 Ur Epithelial Cells Few HPF (Negative) 09/08/18 16:15 Urine Crystals Negative HPF (Negative) 09/08/18 16:15 Urine Bacteria Many HPF (Negative) 09/08/18 16:15 Urine Casts Negative LPF (Negative) 09/08/18 16:15 Urine Mucus Negative (Negative) 09/08/18 16:15 Urine Other Negative (Negative) 09/08/18 16:15 Ur Culture Indicated? Yes 09/08/18 16:15 Urine Osmolality 432 mosm/Kg (150-1150) 09/05/18 19:51 Ur Random Sodium 6 mmol/L 09/05/18 19:51 Urine Glucose Negative mg/dL (Negative) 09/08/18 16:15 Ethyl Alcohol < 3.0 mg/dL (<3) 09/05/18 10:45
--- NOTE | 2018-09-13 10:23 | OT.INTREAT ---
Date of service: 09/13/18 Time of Service: 08:45 Occupational Therapy Notes Occupational Therapy Inpatient Treatment Note Date: 09/13/18 PRECAUTIONS: Fall, Standard SUBJECTIVE: Pt was sitting in chair when OT arrived. She was agreeable to OT session reporting that she has two goals in mind and thats to get better and to get home. OBJECTIVE: PAIN:no c/o pain FUNCTIONAL MOBILITY Sit-stand: S, FWW Stand-sit: S, FWW BATHING: Pt performed prior to OT session. DRESSING: Lower Extremity: (I) don and doffing (B) socks and shoes. Pt requires min vc for body mechanics as she tends to lean to her (L) side when bringing her legs up but with vc she was able to demonstrate this after (I) with ideal technique. GROOMING: Standing at sink with FWW min vc for safety awareness with decreased functional mobility to reach and leaf size picker items if she drops them on the floor. Pt able to brush hair (I). TOILETING: Device: TOilet Assist: (I) ASSESSMENT/PLAN: Pt is demonstrating (I) in ADL/IADL routines but has decreased safety awareness which is sometimes limiting in her performance. Per pts chart she is awaiting placement to SNF. TREATMENT CODES/TIME: [id number], 15minutes (08:45) YUNIER Hassan/[facility]
--- NOTE | 2018-09-13 10:30 | OTTR_ITS ---
Date of service: 09/13/18 Time of Service: 08:45 Occupational Therapy Notes Occupational Therapy Inpatient Treatment Note Date: 09/13/18 PRECAUTIONS: Fall, Standard SUBJECTIVE: Pt was sitting in chair when OT arrived. She was agreeable to OT session reporting that she has two goals in mind and thats to get better and to get home. OBJECTIVE: PAIN:no c/o pain FUNCTIONAL MOBILITY Sit-stand: S, FWW Stand-sit: S, FWW BATHING: Pt performed prior to OT session. DRESSING: Lower Extremity: (I) don and doffing (B) socks and shoes. Pt requires min vc for body mechanics as she tends to lean to her (L) side when bringing her legs up but with vc she was able to demonstrate this after (I) with ideal technique. GROOMING: Standing at sink with FWW min vc for safety awareness with decreased functional mobility to reach and nut picker items if she drops them on the floor. Pt able to brush hair (I). TOILETING: Device: TOilet Assist: (I) ASSESSMENT/PLAN: Pt is demonstrating (I) in ADL/IADL routines but has decreased safety awareness which is sometimes limiting in her performance. Per pts chart she is awaiting placement to SNF. TREATMENT CODES/TIME: [id number], 15minutes (08:45) YUNIER Hassan[facility]
--- NOTE | 2018-09-13 14:35 | PDOC.CMPRO ---
Care Management Progress Note S/O: CM worked with Kayla and Mickey; DOA at [facility] throughout the day on admission requirements, providing patient education around process and insurance limitations. Kayla continues to improve physically, so much so that her BC/BS insurance first declined prior authorization of SNF; CM coordinated MD to MD conversation and additional clinical information, advocating for short term rehab. Kayla's insurance provided authorization for six days per Mickey and offered a bed for tomorrow when MD at [facility] is available for admission. Kayla was emotional throughout the day with the concept of changing discharge plans so late in her admission and accepting the idea of returning home. She communicated appropriately and shared her fears and concerns. Once the six day offer was made, Kayla relaxed and shared appreciation for having more time to prepare. She communicated with her friend, Nancy and [facility]: Lesvia Ledesma. CM spoke with [facility] Intake; Tana as Kayla will require RN/PT/OT/ORGAN TEACHER upon returning home; Tana reported Kayla's insurance would cover home health services. Mickey reported W/C van could transport Kayla at 1130 tomorrow, 09/14/18. CM continues to follow. A: 58 year old female admitted to [facility] 09/05/18 for Weakness, Hyponatremia P: Kayla will discharge to [facility] when ready per MD. She will transport via W/C van scheduled for 1130 09/14/18. Kayla's goal remains to recover fully and return home-gaining back her independence and returning to work. CM to continue to provide support discharge planning and disposition.
--- NOTE | 2018-09-13 14:50 | CMPROGNOTE_ITS ---
Care Management Progress Note S/O: CM worked with Kayla and Mickey; DOA at [facility] throughout the day on admission requirements, providing patient education around process and insurance limitations. Kayla continues to improve physically, so much so that her BC/BS insurance first declined prior authorization of SNF; CM coordinated MD to MD conversation and additional clinical information, advocating for short term rehab. Kayla's insurance provided authorization for six days per Mickey and offered a bed for tomorrow when MD at [facility] is available for admission. Kayla was emotional throughout the day with the concept of changing discharge plans so late in her admission and accepting the idea of returning home. She communicated appropriately and shared her fears and concerns. Once the six day offer was made, Kayla relaxed and shared appreciation for having more time to prepare. She communicated with her friend, Nancy and [facility]: Lesvia Ledesma. CM spoke with [facility] Intake; Tana as Kayla will require RN/PT/OT/MANAGER GAS upon returning home; Tana reported Kayla's insurance would cover home health services. Mickey reported W/C van could transport Kayla at 1130 tomorrow, 09/14/18. CM continues to follow. A: 58 year old female admitted to [facility] 09/05/18 for Weakness, Hyponatremia P: Kayla will discharge to [facility] when ready per MD. She will transport via W/C van scheduled for 1130 09/14/18. Kayla's goal remains to recover fully and return home-gaining back her independence and returning to work. CM to continue to provide support discharge planning and disposition.
[2018-09-13] MEDS: Enoxaparin 40 MG/0.4 ML SYR SC (15:46)
[2018-09-13] MEDS: traMADol 50 MG TAB 25 MG PO (15:56)
[2018-09-13] MEDS: Acetaminophen 325 MG TAB PO (18:36)
[2018-09-13] MEDS: diphenhydrAMINE 25 MG CAP PO (19:55)
--- NOTE | 2018-09-13 23:03 | NUR.NOTE ---
Nursing Note: At 1900 hrs., pt was anxious, demanded to see MD and was seen at this time , Pt continuously calling staff and talked about encountered with MD which she was not satisfied and stated that I don't want to see him again Pt complained of left foot and back pain rated 10. Medicated with Ultram but no effect then Tylenol and benadryl po given at 2000 hrs., and warm packs applied to back and both feet with some relief.Requested to rubbed her back with lotion and finally she is quietly resting on bed. All needs attended.
[2018-09-14] MEDS: traMADol 50 MG TAB 25 MG PO (01:56)
[2018-09-14] MEDS: Levothyroxine 100 MCG TAB PO (06:25)
[2018-09-14 06:39] VITALS: BP 135/84; PULSE 91; RESP 18; TEMP 37; O2SAT 93
[2018-09-14] MEDS: Acetaminophen 325 MG TAB PO (06:44)
[2018-09-14 06:57] LABS: HCT 25.4 % (36.0-46.0); HGB 8.5 g/dL (12.0-15.5); Mean Corp. HGB Concentration 33.5 g/dL (32.0-36.0); Mean Corpuscular Hemoglobin 37.4 pg (27.0-33.0); Mean Corpuscular Volume 111.9 fL (80-95); Mean Platelet Volume 9.7 fL (8.0-11.0); Platelet Count 381 x1000/uL (130-400); RBC 2.27 m/cumm (4.00-5.20); RBC Distribution Width 16.7 % (11.7-14.6); White Blood Cell Count 7.63 k/cumm (4.4-10.8)
[2018-09-14 07:09] LABS: Anion Gap 5.9 mmol/L (3-11); BUN 11 mg/dL (7-18); CO2 29.1 mmol/L (21.0-32.0); CREATININE 0.52 mg/dL (0.55-1.02); Calcium 8.5 mg/dL (8.5-10.1); Chloride 94 mmol/L (98-107); Glucose 102 mg/dL (70-100); Magnesium 1.8 mg/dL (1.8-2.4); Potassium 4.4 mmol/L (3.5-5.1); Sodium 129 mmol/L (136-145)
[2018-09-14 07:15] VITALS: BP 136/73; PULSE 86; RESP 18; TEMP 36.7; O2SAT 94
[2018-09-14] MEDS: Metoprolol 50 MG TAB PO (08:21)
[2018-09-14] MEDS: Magnesium Oxide 400 MG TAB 800 MG PO (08:21)
[2018-09-14] MEDS: Omeprazole 20 MG CAPCR PO (08:21)
[2018-09-14] MEDS: Nicotine 2 MG GUM CH (08:21)
[2018-09-14] MEDS: Aspirin E.C. 81 MG TABEC PO (08:22)
[2018-09-14] MEDS: Thiamine 100 MG TAB PO (08:22)
[2018-09-14] MEDS: Folic Acid 1 MG TAB PO (08:22)
[2018-09-14] MEDS: Gabapentin 300 MG CAP PO (08:22)
[2018-09-14] MEDS: Nicotine 21 MG/24 HR PATCH TD (08:23)
[2018-09-14] MEDS: amLODIPine 5 MG TAB PO (08:23)
[2018-09-14] MEDS: Normal Saline Flush 10 ML SYR IVP (08:23)
[2018-09-14] MEDS: Lachydrin 12% LOTION 225 GM BTL TP (08:24)
--- NOTE | 2018-09-14 10:21 | W.PM.DS.N ---
Date of service: 09/14/18 Time of Service: 10:21 DS: Diagnosis Discharge Diagnosis (1) Hypoxia: Status: Acute Asessment and Plan: Possibly due to undiagnosed COPD, possibly due to pleural effusion, not responding to diuresis. Not always compliant with O2. (2) UTI (urinary tract infection): Status: Resolved Asessment and Plan: POA, due to GNR (E. Coli - 2 different strains, mixed), completed therapy (3) Anemia: Status: Chronic (4) Alcohol use: Status: Acute (5) Hypothyroidism: Status: Chronic (6) Hyponatremia: Status: Chronic (7) Pleural effusion: Status: Acute Asessment and Plan: in setting of hypothyroidism (8) COPD (chronic obstructive pulmonary disease): Status: Suspected Asessment and Plan: Not proven - requires outpatient PFT's. Suspected. (9) Hyperlipidemia: Status: Chronic (10) Continuous chewing tobacco dependence: Status: Inactive (11) Hyperlipidemia: Status: Chronic (12) Neuropathy: Status: Chronic (13) Foot pain, left: Status: Chronic (14) Arterial occlusive disease: Status: Chronic (15) Smoker: Status: Acute (16) Failure to thrive: Status: Acute (17) Hypocalcemia: Status: Acute (18) Folate deficiency: Status: Acute (19) Hypomagnesemia: Status: Acute Discharge Plan Disposition Patient Disposition: [facility] (LEVEL 2) [facility] Condition: Stable Discharge Details Reason For Visit: WEAKNESS, HYPONATREMIA Admit Date/Time: 09/05/18 12:19 Admit Provider: Yoli Quesada Attending Provider: Yoli Quesada Primary Care Provider: Chidi Mccormack [facility] Course Hospital Course: Ms Leon is a 58 year old female with PMHx of chronic hyponatremia (thought to possibly be due to SIADH, evaluated at [facility] for this), as well as hypothyroidism, hypertension, hyperlipidemia, history of alcohol abuse in the past, chronic Left foot pain in setting of known PAD, neuropathy, who was sent to [facility] ED by her PCP for inability to take care of self, weakness, weight loss and admitted to [facility] on 09/05/18 for acute on chronic hyponatremia with sodium of 122 on admission. Additionally, she was also found to have a TSH of 25.23. She was gently hydrated with improved sodium. Her synthroid was increased. We question the patient's compliance with her synthroid at home. She was monitored with [facility] for alcohol withdrawal and mild withdrawal is thought to have happened on this admission. Additionally, the patient was found to have acute on chronic anemia as well as a dilutional component, with H/H dropping down to 7.0/21.0. She is hemoccult negative, but does have evidence of folate deficiency in addition to anemia of chronic disease. She did not receive transfusions on this admission and has remained hemodynamically stable. Her H/H on discharge is 8.5/25.4. Throughout her hospitalization, there has been intermittent hypoxia noted. Etiology of this is likely multifactorial. There is no evidence of pneumonia. We suspect she has underlying COPD and will need outpatient PFT's to follow up. She also has small bilateral pleural effusions. However, her hypoxia did not respond to diuresis. She is currently on 2 L of O2. Her ambulatory pulse ox on room air is 84%. 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 Finally, the patient was diagnosed with a UTI on 09/08/18. For this, she completed a course of levofloxacin. Her culture was mixed, grew 2 strains of E. Coli. On discharge, she is deemed to require a short course of subacute rehab. She has been accepted at [facility]. She is in agreement with this transfer. Time spent on this discharge summary and process is 45 minutes. Home Meds and New Rx's Prescriptions: New acetaminophen [Tylenol] 325 mg Tablet 650 mg PO Q4H PRN PRNQty: 0 RF: 0 ipratropium-albuterol 0.5 mg-3 mg(2.5 mg base)/3 mL Solution For Nebulization 3 ml UPD Q6H PRN PRNQty: 0 RF: 0 Nicotrol 10 mg Cartridge 30 cartridge Inhalation Q2H PRN PRNQty: 0 RF: 0 zinc oxide 20 % Ointment 60 g topical TID Qty: 0 RF: 0 levothyroxine 100 mcg Tablet 100 mcg PO 0600 Qty: 0 RF: 0 magnesium oxide 400 mg (241.3 mg magnesium) Tablet 800 mg PO BID Qty: 0 RF: 0 nicotine 21 mg/24 hr Patch 24 Hour 21 mg Transdermal DAILY Qty: 0 RF: 0 omeprazole 20 mg Capsule,Delayed Release(Dr/Ec) 20 mg PO DAILY@0730 Qty: 0 RF: 0 folic acid 1 mg Tablet 1 mg PO DAILY Qty: 0 RF: 0 clotrimazole 1 % Cream 60 g topical TID Qty: 0 RF: 0 vits A and D-white pet-lanolin Ointment 60 g topical TID Qty: 0 RF: 0 tramadol 50 mg Tablet 25 mg PO Q6H PRN PRN (Reason: pain) Qty: 10 RF: 0 thiamine mononitrate (vit B1) [Vitamin B-1 (mononitrate)] 100 mg Tablet 100 mg PO DAILY Qty: 0 RF: 0 calcium carbonate 500 mg calcium (1,250 mg) tablet 500 mg PO BID Qty: 14 RF: 0 cyanocobalamin (vitamin B-12) 500 mcg lozenge 500 mcg PO DAILY Qty: 30 RF: 0 multivitamin tablet 1 tab PO DAILY Qty: 30 RF: 0 Continued gabapentin 300 mg capsule 300 mg PO BID Qty: 90 RF: 11 diphenhydramine HCl [Benadryl] 25 MG capsule 25 mg PO DAILY PRNRF: 0 aspirin [Aspir-81] 81 MG tablet,delayed release (DR/EC) 81 mg PO DAILY RF: 0 metoprolol tartrate 50 mg tablet 50 mg PO BID Qty: 180 RF: 3 amlodipine 5 mg tablet 5 mg PO DAILY Qty: 30 RF: 3 Discontinued acetaminophen 500 MG tablet 500 mg PO PRN RF: 0 levothyroxine [Synthroid] 75 mcg tablet 75 mcg PO DAILY Qty: 90 RF: 3 Discharge Instructions Instructions: Hyponatremia (DC) Additional Instructions: Return to the hospital with any fever, bleeding, chest pain, shortness of breath. Check CBC and BMP in 5 days. 2L of O2 by NC Stand Alone Forms: Nursing Discharge Form Referrals: Venu Sow DPM [DPM [facility] STAFF PHYSICIAN] - Activity:: Activity as Tolerated Activity:: Activity as Tolerated Equipment/Supplies:: Oxygen (L/min Below) Diet:: Normal Diet Discharge Orders Other Ambulatory Orders: PFT Spirometry (Outpt) (ONCE) Location: Determined by Patient Ordered By: Yoli Quesada Exam Narrative Exam Narrative: General: A&Ox3, NAD HEENT: EOMI, MMM Heart: RRR, no m/r/g Lungs: Diminished breath sounds at B bases GI: abdomen is soft, nontender, nondistended Extremities: no e/c/c BLE's DS: Data Vitals/I&O Vitals and I&O: Vital Signs Temperature 36.7 C 09/14/18 07:15 Temperature Source Tympanic 09/14/18 07:15 Pulse 86 09/14/18 07:15 Pulse Rhythm Regular 09/14/18 07:21 Respiratory Rate 18 09/14/18 07:15 Respiratory Effort Non-Labored 09/14/18 07:21 Respiratory Depth Normal 09/14/18 07:21 Respiratory Pattern Normal 09/14/18 07:21 Blood Pressure 136/73 09/14/18 07:15 Blood Pressure Mean 57 09/05/18 12:49 Blood Pressure Position Supine 09/05/18 10:12 Pulse Oximetry 94 L 09/14/18 07:15 Oxygen Delivery Method Nasal Cannula 09/14/18 07:15 Oxygen Flow Rate 2 09/14/18 07:15 Pain Level 10 09/14/18 06:44 Comment 09/14/18 06:39 Intake & Output 09/13/18 09/13/18 09/14/18 11:59 23:59 11:59 Intake Total 970 / 990 / 990 Balance 970 / 990 0 Weight 44 kg 44 kg Intake: IV 970 / 990 0 Other: Urine Color Pale Yellow Urine Appearance Clear Clear Clear Urine Odor None Comment pt incontinent of large amounts. Stool Occult Blood Negative Stool Characteristics Soft Formed Voiding Methods Diaper Bedside Commode Bedside Commode Incontinent Diaper Incontinent Completed studies during hospitalization [Text1]: CXR 09/05/18: No evidence of acute cardiopulmonary disease. CT head 09/05/18: No acute intracranial abnormality is demonstrated. CXR 09/09/18: 1. Interval development of small bilateral pleural effusions and bilateral interstitial prominence. The interstitial disease is nonspecific. This may represent edema, atelectasis or pneumonia. Follow up as clinically appropriate. Labs on day of discharge: Labs from last 24 hours 09/14/18 09/14/18 06:18 06:18 WBC 7.63 RBC 2.27 L Hgb 8.5 L Hct 25.4 L MCV 111.9 H MCH 37.4 H MCHC 33.5 RDW 16.7 H Plt Count 381 MPV 9.7 Sodium 129 L Potassium 4.4 D Chloride 94 L Carbon Dioxide 29.1 Anion Gap 5.9 BUN 11 Creatinine 0.52 L Estimated GFR/1.73 m2 >= 60.00 Glucose 102 H Calcium 8.5 Magnesium 1.8 PFSH Medical History Continuous chewing tobacco dependence (Inactive 01/22/12) Hyperlipidemia (Chronic 08/21/12) Neuropathy (Chronic 12/07/16) Hyperlipidemia (Chronic 08/21/12) Foot pain, left (Chronic 12/04/16) Essential hypertension (Chronic 01/22/12) Arterial occlusive disease (Chronic 12/04/16) Hypothyroidism (Chronic) Social History Smoking/Tobacco Use Status: Current every day Alcohol Intake: current Alcohol Intake frequency: 0-2 drinks per day Alcohol type: beer Drug use: Never Substance use type: does not use Housing: apartment current occupation: [employer], [place] Pets and animals: Yes Pets and animals: cat(s) What type of physical activity do you participate in: none Duration: 15-30 minutes/day Frequency: 5-6 times per week Seatbelt use: always Drive intox or ride w/intox non cdl driver: No Working smoke detector in home: Yes Fire extinguisher in home: Yes Carbon monox detector in home: Yes Do you feel safe at home: Yes Do you feel safe in your relationship?: Yes
--- NOTE | 2018-09-14 10:26 | DSE_ITS ---
Date of service: 09/14/18 Time of Service: 10:21 DS: Diagnosis Discharge Diagnosis (1) Hypoxia: Status: Acute Asessment and Plan: Possibly due to undiagnosed COPD, possibly due to pleural effusion, not responding to diuresis. Not always compliant with O2. (2) UTI (urinary tract infection): Status: Resolved Asessment and Plan: POA, due to GNR (E. Coli - 2 different strains, mixed), completed therapy (3) Anemia: Status: Chronic (4) Alcohol use: Status: Acute (5) Hypothyroidism: Status: Chronic (6) Hyponatremia: Status: Chronic (7) Pleural effusion: Status: Acute Asessment and Plan: in setting of hypothyroidism (8) COPD (chronic obstructive pulmonary disease): Status: Suspected Asessment and Plan: Not proven - requires outpatient PFT's. Suspected. (9) Hyperlipidemia: Status: Chronic (10) Continuous chewing tobacco dependence: Status: Inactive (11) Hyperlipidemia: Status: Chronic (12) Neuropathy: Status: Chronic (13) Foot pain, left: Status: Chronic (14) Arterial occlusive disease: Status: Chronic (15) Smoker: Status: Acute (16) Failure to thrive: Status: Acute (17) Hypocalcemia: Status: Acute (18) Folate deficiency: Status: Acute (19) Hypomagnesemia: Status: Acute Discharge Plan Disposition Patient Disposition: [facility] (LEVEL 2) [facility] Condition: Stable Discharge Details Reason For Visit: WEAKNESS, HYPONATREMIA Admit Date/Time: 09/05/18 12:19 Admit Provider: Yoli Quesada Attending Provider: Yoli Quesada Primary Care Provider: Chidi Mccormack [facility] Course Hospital Course: Ms Leon is a 58 year old female with PMHx of chronic hyponatremia (thought to possibly be due to SIADH, evaluated at [facility] for this), as well as hypothyroidism, hypertension, hyperlipidemia, history of alcohol abuse in the past, chronic Left foot pain in setting of known PAD, neuropathy, who was sent to [facility] ED by her PCP for inability to take care of self, weakness, weight loss and admitted to [facility] on 09/05/18 for acute on chronic hyponatremia with sodium of 122 on admission. Additionally, she was also found to have a TSH of 25.23. She was gently hydrated with improved sodium. Her synthroid was increased. We question the patient's compliance with her synthroid at home. She was monitored with [facility] for alcohol withdrawal and mild withdrawal is thought to have happened on this admission. Additionally, the patient was found to have acute on chronic anemia as well as a dilutional component, with H/H dropping down to 7.0/21.0. She is hemoccult negative, but does have evidence of folate deficiency in addition to anemia of chronic disease. She did not receive transfusions on this admission and has remained hemodynamically stable. Her H/H on discharge is 8.5/25.4. Throughout her hospitalization, there has been intermittent hypoxia noted. Etiology of this is likely multifactorial. There is no evidence of pneumonia. We suspect she has underlying COPD and will need outpatient PFT's to follow up. She also has small bilateral pleural effusions. However, her hypoxia did not respond to diuresis. She is currently on 2 L of O2. Her ambulatory pulse ox on room air is 84%. 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 Finally, the patient was diagnosed with a UTI on 09/08/18. For this, she completed a course of levofloxacin. Her culture was mixed, grew 2 strains of E. Coli. On discharge, she is deemed to require a short course of subacute rehab. She has been accepted at [facility]. She is in agreement with this transfer. Time spent on this discharge summary and process is 45 minutes. Home Meds and New Rx's Prescriptions: New acetaminophen [Tylenol] 325 mg Tablet 650 mg PO Q4H PRN PRNQty: 0 RF: 0 ipratropium-albuterol 0.5 mg-3 mg(2.5 mg base)/3 mL Solution For Nebulization 3 ml UPD Q6H PRN PRNQty: 0 RF: 0 Nicotrol 10 mg Cartridge 30 cartridge Inhalation Q2H PRN PRNQty: 0 RF: 0 zinc oxide 20 % Ointment 60 g topical TID Qty: 0 RF: 0 levothyroxine 100 mcg Tablet 100 mcg PO 0600 Qty: 0 RF: 0 magnesium oxide 400 mg (241.3 mg magnesium) Tablet 800 mg PO BID Qty: 0 RF: 0 nicotine 21 mg/24 hr Patch 24 Hour 21 mg Transdermal DAILY Qty: 0 RF: 0 omeprazole 20 mg Capsule,Delayed Release(Dr/Ec) 20 mg PO DAILY@0730 Qty: 0 RF: 0 folic acid 1 mg Tablet 1 mg PO DAILY Qty: 0 RF: 0 clotrimazole 1 % Cream 60 g topical TID Qty: 0 RF: 0 vits A and D-white pet-lanolin Ointment 60 g topical TID Qty: 0 RF: 0 tramadol 50 mg Tablet 25 mg PO Q6H PRN PRN (Reason: pain) Qty: 10 RF: 0 thiamine mononitrate (vit B1) [Vitamin B-1 (mononitrate)] 100 mg Tablet 100 mg PO DAILY Qty: 0 RF: 0 calcium carbonate 500 mg calcium (1,250 mg) tablet 500 mg PO BID Qty: 14 RF: 0 cyanocobalamin (vitamin B-12) 500 mcg lozenge 500 mcg PO DAILY Qty: 30 RF: 0 multivitamin tablet 1 tab PO DAILY Qty: 30 RF: 0 Continued gabapentin 300 mg capsule 300 mg PO BID Qty: 90 RF: 11 diphenhydramine HCl [Benadryl] 25 MG capsule 25 mg PO DAILY PRNRF: 0 aspirin [Aspir-81] 81 MG tablet,delayed release (DR/EC) 81 mg PO DAILY RF: 0 metoprolol tartrate 50 mg tablet 50 mg PO BID Qty: 180 RF: 3 amlodipine 5 mg tablet 5 mg PO DAILY Qty: 30 RF: 3 Discontinued acetaminophen 500 MG tablet 500 mg PO PRN RF: 0 levothyroxine [Synthroid] 75 mcg tablet 75 mcg PO DAILY Qty: 90 RF: 3 Discharge Instructions Instructions: Hyponatremia (DC) Additional Instructions: Return to the hospital with any fever, bleeding, chest pain, shortness of breath. Check CBC and BMP in 5 days. 2L of O2 by NC Stand Alone Forms: Nursing Discharge Form Referrals: Venu Sow DPM [DPM [facility] STAFF PHYSICIAN] - Activity:: Activity as Tolerated Activity:: Activity as Tolerated Equipment/Supplies:: Oxygen (L/min Below) Diet:: Normal Diet Discharge Orders Other Ambulatory Orders: PFT Spirometry (Outpt) (ONCE) Location: Determined by Patient Ordered By: Yoli Quesada Exam Narrative Exam Narrative: General: A&Ox3, NAD HEENT: EOMI, MMM Heart: RRR, no m/r/g Lungs: Diminished breath sounds at B bases GI: abdomen is soft, nontender, nondistended Extremities: no e/c/c BLE's DS: Data Vitals/I&O Vitals and I&O: Vital Signs Temperature 36.7 C 09/14/18 07:15 Temperature Source Tympanic 09/14/18 07:15 Pulse 86 09/14/18 07:15 Pulse Rhythm Regular 09/14/18 07:21 Respiratory Rate 18 09/14/18 07:15 Respiratory Effort Non-Labored 09/14/18 07:21 Respiratory Depth Normal 09/14/18 07:21 Respiratory Pattern Normal 09/14/18 07:21 Blood Pressure 136/73 09/14/18 07:15 Blood Pressure Mean 57 09/05/18 12:49 Blood Pressure Position Supine 09/05/18 10:12 Pulse Oximetry 94 L 09/14/18 07:15 Oxygen Delivery Method Nasal Cannula 09/14/18 07:15 Oxygen Flow Rate 2 09/14/18 07:15 Pain Level 10 09/14/18 06:44 Comment 09/14/18 06:39 Intake & Output 09/13/18 09/13/18 09/14/18 11:59 23:59 11:59 Intake Total 970 / 990 / 990 Balance 970 / 990 0 Weight 44 kg 44 kg Intake: IV 970 / 990 0 Other: Urine Color Pale Yellow Urine Appearance Clear Clear Clear Urine Odor None Comment pt incontinent of large amounts. Stool Occult Blood Negative Stool Characteristics Soft Formed Voiding Methods Diaper Bedside Commode Bedside Commode Incontinent Diaper Incontinent Completed studies during hospitalization [Text1]: CXR 09/05/18: No evidence of acute cardiopulmonary disease. CT head 09/05/18: No acute intracranial abnormality is demonstrated. CXR 09/09/18: 1. Interval development of small bilateral pleural effusions and bilateral interstitial prominence. The interstitial disease is nonspecific. This may represent edema, atelectasis or pneumonia. Follow up as clinically appropriate. Labs on day of discharge: Labs from last 24 hours 09/14/18 09/14/18 06:18 06:18 WBC 7.63 RBC 2.27 L Hgb 8.5 L Hct 25.4 L MCV 111.9 H MCH 37.4 H MCHC 33.5 RDW 16.7 H Plt Count 381 MPV 9.7 Sodium 129 L Potassium 4.4 D Chloride 94 L Carbon Dioxide 29.1 Anion Gap 5.9 BUN 11 Creatinine 0.52 L Estimated GFR/1.73 m2 >= 60.00 Glucose 102 H Calcium 8.5 Magnesium 1.8 PFSH Medical History Continuous chewing tobacco dependence (Inactive 01/22/12) Hyperlipidemia (Chronic 08/21/12) Neuropathy (Chronic 12/07/16) Hyperlipidemia (Chronic 08/21/12) Foot pain, left (Chronic 12/04/16) Essential hypertension (Chronic 01/22/12) Arterial occlusive disease (Chronic 12/04/16) Hypothyroidism (Chronic) Social History Smoking/Tobacco Use Status: Current every day Alcohol Intake: current Alcohol Intake frequency: 0-2 drinks per day Alcohol type: beer Drug use: Never Substance use type: does not use Housing: apartment current occupation: [employer] [place], [place] Pets and animals: Yes Pets and animals: cat(s) What type of physical activity do you participate in: none Duration: 15-30 minutes/day Frequency: 5-6 times per week Seatbelt use: always Drive intox or ride w/intox train driver: No Working smoke detector in home: Yes Fire extinguisher in home: Yes Carbon monox detector in home: Yes Do you feel safe at home: Yes Do you feel safe in your relationship?: Yes
--- NOTE | 2018-09-14 10:57 | PDOC.CMDIS ---
- If Service Date Differs Date of service: 09/14/18 Time of Service: 10:57 LACE Index Scoring Tool - Questions: Length of Stay (in days): 4 - 6 Acuity (Admit via E.D.?): Yes E.D. Visits: 4 - Answers: Total Score: 11 Risk of Readmission: High Risk Care Management Discharge Reason for Hospitalization: Weakness, Hyponatremia Discharge Plan: Kayla is being discharged to [facility]. CM met with Kayla and reviewed plan for discharge. She describes herself as nervous about the transition, CM provided active listening. Kayla is requesting to eat lunch prior to discharge. Nursing arranged early lunch for the Pt. Kayla is able to articulate her goals including wanting to return to work after rehab. CM reviewed option including applying for disability if she is unable to return to work and meeting with [employer] to assist with services and applications. She wants to return home, she states she has supportive friends in the community. Kayla will transition to [facility] today for short term rehab via wheelchair van prior to returning home with home supports. CM reviewed supports in the community including data recovery planner through the recovery center. CM contacted health and rehab confirmed time of transfer, and plan today. Patient/Family Education Needs: Education, limitations, follow-up plan of care, asked me 3, and self-management. Reviewed community supports including social work, recovery center track and field coach. Services Needed at Discharge: Snf Facility, Transportation
[2018-09-14] MEDS: levoFLOXacin 500 MG, levoFLOXacin 250 MG 750 MG PO (11:01)
--- NOTE | 2018-09-14 11:06 | CMDISCH_ITS ---
- If Service Date Differs Date of service: 09/14/18 Time of Service: 10:57 LACE Index Scoring Tool - Questions: Length of Stay (in days): 4 - 6 Acuity (Admit via E.D.?): Yes E.D. Visits: 4 - Answers: Total Score: 11 Risk of Readmission: High Risk Care Management Discharge Reason for Hospitalization: Weakness, Hyponatremia Discharge Plan: Kayla is being discharged to [facility] today. CM met with Kayla and reviewed plan for discharge. She describes herself as nervous about the transition, CM provided active listening. Kayla is requesting to eat lunch prior to discharge. Nursing arranged early lunch for the Pt. Kayla is able to articulate her goals including wanting to return to work after rehab. CM reviewed option including applying for disability if she is unable to return to work and meeting with CLINICAL DATA ASSISTANT to assist with services and applications. She wants to return home, she states she has supportive friends in the community. Kayla will transition to [facility] today for short term rehab via wheelchair van prior to returning home with home supports. CM reviewed supports in the community including power and recovery superintendent through the recovery center. CM contacted health and rehab confirmed time of transfer, and plan today. Patient/Family Education Needs: Education, limitations, follow-up plan of care, asked me 3, and self-management. Reviewed community supports including social work, recovery center gymnastics coach. Services Needed at Discharge: Nursing Home Facility, Transportation
--- NOTE | 2018-09-14 11:35 | NUR.NOTE ---
Nursing Note: REport given to Tiarra Bustamante RN @ [facility] (formerly [facility] @ [phone].
--- NOTE | 2018-09-15 19:40 | OTDS_ITS ---
Date of service: 09/15/18 Time of Service: 19:39 Occupational Therapy Notes Occupational Therapy Inpatient Discharge Summary Date: 09/15/18 Dates of Service: 09/06/18-09/15/18 Referring Doctor:Glenda Simeon NP OT Orders: Generalized weakness, failure to thrive Precautions: Fall Risk, Standard PATIENT PROFILE/ADMITTING DIAGNOSIS: Pt is a 58 year old female admitted through the ER for generalized weakness, left foot pain, and buttock pain. Patient was diagnosed with hyponatremia, falling, failure to thrive in her home environment. Past Medical History: Medical History Continuous chewing tobacco dependence (Inactive 01/22/12) Hyperlipidemia (Chronic 08/21/12) Neuropathy (Chronic 12/07/16) Hyperlipidemia (Chronic 08/21/12) Foot pain, left (Chronic 12/04/16) Essential hypertension (Chronic 01/22/12) Arterial occlusive disease (Chronic 12/04/16) Hypothyroidism (Chronic) Social History/Home Situation: Pt lives alone in an apartment. She does not use any devices for functional mobility. At Baseline pts ADLs are performed at the following level of function- Eating-(I) Grocery Shopping- Shops when she needs to, however states that she freezes all of her food and just eats it over the months. Cooking- Microwave Sleeping-(I) Dressing- (I) Bathing- Only has a bathtub no shower. She states its an old claw foot tub and she does this (I). Pt admits she is not able to perform this at her home and has not bathed since her pain started and just washes up her face and wherever is dirty. 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 Has had multiple dramatic experiences in the work place. Support- Pt states that she has very limited social support and that no one ever comes to check on her. Pets- A cat- pt reports her friend is watching her cat for the time being. Pts goal- To return to work as soon as possible. Equipment owned/DME: Pt states she does not need this. SUBJECTIVE: NT This document serves as a summary of care, no skilled OT services provided for this documentation. OBJECTIVE: Strength: RUE Shoulder flexion 4/5, elbow 4/5, air export operations agent 4/5 L UE Shoulder flexion 4/5, elbow 4/5, air export operations agent 4/5 ROM: RUE AROM WNL LUE AROM WNL FUNCTIONAL MOBILITY/ADLS: Transfers Supine-sit (I) Sit-supine (I) Sit-Stand (s) Stand-sit (S) Bed-Chair (S) with decreased safety awareness Chair-bed (S) with safety awareness BATHING (I) sitting in shower on bench with decreased safety awareness and vc DRESSING Dressing UE (I) Dressing LE Able to don and doff (B) socks with min vc GROOMING Standing at sink with FWW with min vc (I) brushing hair, pt does not have any teeth. TOILETING on toilet, min vc decreased safety awareness EATING (I) for hand to mouth translation, min (A) with cutting food. BALANCE: Static sitting Normal Dynamic Sitting Good Static Standing Good Dynamic Standing Good ASSESSMENT: Patient is a 58-year-old female referred to occupational therapy services with diagnosis of generalized weakness, left foot pain, and buttock pain. Pt was seen for 6 skilled OT services. Pt has demonstrated increased (I) in her ADL/IADL routines however pt is still presenting with decreased safety awareness and functional use of FWW. Pt was discharged on 09/14/[facility] to [facility] and medically cleared per MD. GOALS-MET with decreased safety awareness and use of vc 1. Transfers FWW (I) 2. Dressing (I) 3. Bathing (I) standing at sink 4. Toileting (I) on toilet 5. Eating (I) 6. Pt will be able to stand at sink with FWW to brush her teeth and hair (I). PLAN OF CARE/TREATMENT PLAN: Discharge skilled OT services. DISCHARGE RECOMMENDATIONS Pt was discharged on 09/14/18 to [facility]. TREATMENT TIME/MINUTES/CODES N/A Jane Gomez OTR/L [facility]
--- NOTE | 2018-09-16 04:59 | PT.INDS ---
Date of service: 09/13/18 PT Notes Inpatient Physical Therapy Discharge Summary Dates: 09/13/2018 Dates of Service: 09/06/2018 through 09/12/2018 This is a clinical summary of care provided on the duration of dates listed above. No charge was made in the completion of this documentation. Referring Doctor: Glenda Simeon NP PT Orders: PT CONSULT: Generalized weakness, hypothyroidism, hyponatremia, falling at home Precautions: Fall. Standard. Patient Profile/Admitting Diagnosis: Orders received for this 4-year-old female who presented to the ED with chief complaints of generalized weakness, left foot pain, and buttock pain. Patient is diagnosed with hyponatremia, falling, failure to thrive. PMHX: Medical History Continuous chewing tobacco dependence (Inactive 01/22/12) Hyperlipidemia (Chronic 08/21/12) Neuropathy (Chronic 12/07/16) Hyperlipidemia (Chronic 08/21/12) Foot pain, left (Chronic 12/04/16) Essential hypertension (Chronic 01/22/12) Arterial occlusive disease (Chronic 12/04/16) Hypothyroidism (Chronic) Social History/Home Situation: Patient lives at home anyone for her, rails in both sides. She states she is independent with all aspects of ADLs without assistive ambulatory devices nor adaptive equipment. She reports she has worked for a long time at [employer], third shift. She does not drive. She further states that she is currently on medical leave back home and resume work. Equipment Owned/DME: None. Subjective: Patient agreeable to a PT consult. She denies any headaches and dizziness. Does report pain on her left foot that she states has been there for quite a while now. She said she takes Gabapentin to manage the pain. Objective: General Observation: NT Mental Status:NT Pain: NT ROM: Right Upper Extremity: Shoulder Flexion WFL. Shoulder abduction WFL. Elbow flexion WFL. Wrist flexion WFL. Functional opening and closing of hand WFL. Left Upper Extremity: Shoulder Flexion WFL. Shoulder abduction WFL. Elbow flexion WFL. Wrist flexion WFL. Functional opening and closing of hand WFL. Right Lower Extremity: Hip flexion WFL. Hip abduction WFL. Knee flexion WFL. Ankle dorsiflexion WFL. Ankle plantarflexion WFL. Left Lower Extremity: Hip flexion WFL. Hip abduction WFL. Knee flexion WFL. Ankle dorsiflexion WFL. Ankle plantarflexion WFL. Strength: STRENGTH: Right Upper Extremity: Shoulder flexors 4/5. Shoulder abductors 4/5. Elbow flexors 4/5. Elbow extensors 4/5. Composite Worker strong. Left Upper Extremity: Shoulder flexors 4/5. Shoulder abductors 4/5. Elbow flexors 4/5. Elbow extensors 4/5. Composite Worker strong. Right Lower Extremity:Hip flexors 3+/5. Hip abductors 3+ /5. Knee flexors 3+/5. Knee extensors 4-/5. Ankle dorsiflexors 4/5. Ankle plantarflexors 4/5. Left Lower Extremity: Hip flexors 3+/5. Hip abductors 3+ /5. Patient was able to tolerate minimal resistance provided to hip and knee extension in supine. Knee flexors 3+/5. Knee extensors 4-/5. Ankle dorsiflexors 4/5. Ankle plantarflexors 4/5. Sensation: Intact as to pain and pressure to B LE. BED MOBILITY LEVELS/TRANSFERS Rolling I Supine to sit I Sit to supine I Sit to stand I Stand to sit I Bed to chair I Chair to bed I Gait: Patient has been able to manage level surface ambulation from 5-150 feet depending on motivation level as it has waxed and waned. She uses FWW with supervision assist. Balance: Static Sitting: Good Dynamic Sitting: Good Static Standing: Fair Dynamic Standing: Fair Assessment: Patient is a 58 year old female referred to physical therapy services with the diagnosis of hyponatremia, generalized weakness, left foot pain, buttock pain.. Patient presents with clinical signs and symptoms consistent with current/admitting diagnoses that have resulted to mobility limitations, gait instability, generalized weakness, and impairment of motor control as demonstrated by the following impairment level findings: 1. Decreased strength to B LE major muscle groups 2. Impaired sitting/standing balance 3. Impaired activity tolerance 4. Left foot pain at 10/10 Impairments are contributing to the following functional limitations: 1. Dependent bed mobility skills 2. Increased dependence with transfers 3. Inability to safely ambulate without assistive device and physical assistance 4. Increase completion time for mobility ADL performance 5. Increased fall risk 6. Inability to negotiate steps alone safely Goals: Goals X1 week 1. Supine-Sit independent MET 2. Sit-Supine independent MET 3. Sit-Stand independent MET 4. Stand-Sit independent MET 5. Bed-Chair independent MET 6. Chair-Bed independent MET 7. Independent gait on level surface with use of least restrictive device for at least 300 feet without report of pain nor dyspnea NOT MET 8. Independent stair negotiation while holding onto bilateral rails for at least 10 steps without report of pain nor dyspnea NOT MET 9. Independent with home exercise program MET 10. Good static and dynamic standing balance/tolerance NOT MET DISCHARGE RECOMMENDATIONS: Patient will benefit from detention facility placement or home health physical therapy in order to maximize functional mobility level and facilitate return to work. Patient benefit from a front wheeled walker to maximize mobility and reduce fall risk TREATMENT CODE/TIME: NC Thank you for this referral. Kenia Saba, PT, DPT, CLT [facility]
--- NOTE | 2018-09-16 05:06 | INDS_ITS ---
Date of service: 09/13/18 PT Notes Inpatient Physical Therapy Discharge Summary Dates: 09/13/2018 Dates of Service: 09/06/2018 through 09/12/2018 This is a clinical summary of care provided on the duration of dates listed above. No charge was made in the completion of this documentation. Referring Doctor: Glenda Simeon NP PT Orders: PT CONSULT: Generalized weakness, hypothyroidism, hyponatremia, falling at home Precautions: Fall. Standard. Patient Profile/Admitting Diagnosis: Orders received for this 4-year-old female who presented to the ED with chief complaints of generalized weakness, left foot pain, and buttock pain. Patient is diagnosed with hyponatremia, falling, failure to thrive. PMHX: Medical History Continuous chewing tobacco dependence (Inactive 01/22/12) Hyperlipidemia (Chronic 08/21/12) Neuropathy (Chronic 12/07/16) Hyperlipidemia (Chronic 08/21/12) Foot pain, left (Chronic 12/04/16) Essential hypertension (Chronic 01/22/12) Arterial occlusive disease (Chronic 12/04/16) Hypothyroidism (Chronic) Social History/Home Situation: Patient lives at home anyone for her, rails in both sides. She states she is independent with all aspects of ADLs without assistive ambulatory devices nor adaptive equipment. She reports she has worked for a long time at [employer], third shift. She does not drive. She further states that she is currently on medical leave back home and resume work. Equipment Owned/DME: None. Subjective: Patient agreeable to a PT consult. She denies any headaches and dizziness. Does report pain on her left foot that she states has been there for quite a while now. She said she takes Gabapentin to manage the pain. Objective: General Observation: NT Mental Status:NT Pain: NT ROM: Right Upper Extremity: Shoulder Flexion WFL. Shoulder abduction WFL. Elbow flexion WFL. Wrist flexion WFL. Functional opening and closing of hand WFL. Left Upper Extremity: Shoulder Flexion WFL. Shoulder abduction WFL. Elbow flexion WFL. Wrist flexion WFL. Functional opening and closing of hand WFL. Right Lower Extremity: Hip flexion WFL. Hip abduction WFL. Knee flexion WFL. Ankle dorsiflexion WFL. Ankle plantarflexion WFL. Left Lower Extremity: Hip flexion WFL. Hip abduction WFL. Knee flexion WFL. Ankle dorsiflexion WFL. Ankle plantarflexion WFL. Strength: STRENGTH: Right Upper Extremity: Shoulder flexors 4/5. Shoulder abductors 4/5. Elbow flexors 4/5. Elbow extensors 4/5. Automotive Project Engineer strong. Left Upper Extremity: Shoulder flexors 4/5. Shoulder abductors 4/5. Elbow flexors 4/5. Elbow extensors 4/5. Automotive Project Engineer strong. Right Lower Extremity:Hip flexors 3+/5. Hip abductors 3+ /5. Knee flexors 3+/5. Knee extensors 4-/5. Ankle dorsiflexors 4/5. Ankle plantarflexors 4/5. Left Lower Extremity: Hip flexors 3+/5. Hip abductors 3+ /5. Patient was able to tolerate minimal resistance provided to hip and knee extension in supine. Knee flexors 3+/5. Knee extensors 4-/5. Ankle dorsiflexors 4/5. Ankle plantarflexors 4/5. Sensation: Intact as to pain and pressure to B LE. BED MOBILITY LEVELS/TRANSFERS Rolling I Supine to sit I Sit to supine I Sit to stand I Stand to sit I Bed to chair I Chair to bed I Gait: Patient has been able to manage level surface ambulation from 5-150 feet depending on motivation level as it has waxed and waned. She uses FWW with supervision assist. Balance: Static Sitting: Good Dynamic Sitting: Good Static Standing: Fair Dynamic Standing: Fair Assessment: Patient is a 58 year old female referred to physical therapy services with the diagnosis of hyponatremia, generalized weakness, left foot pain, buttock pain.. Patient presents with clinical signs and symptoms consistent with current/admitting diagnoses that have resulted to mobility limitations, gait instability, generalized weakness, and impairment of motor control as demonstrated by the following impairment level findings: 1. Decreased strength to B LE major muscle groups 2. Impaired sitting/standing balance 3. Impaired activity tolerance 4. Left foot pain at 10/10 Impairments are contributing to the following functional limitations: 1. Dependent bed mobility skills 2. Increased dependence with transfers 3. Inability to safely ambulate without assistive device and physical assistan ce 4. Increase completion time for mobility ADL performance 5. Increased fall risk 6. Inability to negotiate steps alone safely Goals: Goals X1 week 1. Supine-Sit independent MET 2. Sit-Supine independent MET 3. Sit-Stand independent MET 4. Stand-Sit independent MET 5. Bed-Chair independent MET 6. Chair-Bed independent MET 7. Independent gait on level surface with use of least restrictive device for at least 300 feet without report of pain nor dyspnea NOT MET 8. Independent stair negotiation while holding onto bilateral rails for at least 10 steps without report of pain nor dyspnea NOT MET 9. Independent with home exercise program MET 10. Good static and dynamic standing balance/tolerance NOT MET DISCHARGE RECOMMENDATIONS: Patient will benefit from fdc facility placement or home health physical therapy in order to maximize functional mobility level and facilitate return to work. Patient benefit from a front wheeled walker to maximize mobility and reduce fall risk TREATMENT CODE/TIME: NC Thank you for this referral. Kenia Saba, PT, DPT, CLT [facility]
== END 2018-09-14 11:51 | disposition intermediate care facility (04) | DRG 641 ==
LOC: ER 13:13 → MS 13:39
PROVIDERS: Internal Medicine; Nurse Practitioner; Nurse Practitioner Family; Admitting Provider Internal Medicine; Emergency Provider Emergency Medicine; PCP Family Medicine; Visit Provider Internal Medicine
DX: E87.1 Hypo-osmolality and hyponatremia (principal); N39.0 Urinary tract infection, site not specified; F10.230 Alcohol dependence with withdrawal, uncomplicated; J98.11 Atelectasis; B96.20 Unspecified Escherichia coli [E. coli] as the cause of diseases classified elsewhere; E03.9 Hypothyroidism, unspecified; D63.8 Anemia in other chronic diseases classified elsewhere; D53.9 Nutritional anemia, unspecified; M79.672 Pain in left foot; G89.29 Other chronic pain; G57.62 Lesion of plantar nerve, left lower limb; I73.9 Peripheral vascular disease, unspecified; F17.210 Nicotine dependence, cigarettes, uncomplicated; R09.02 Hypoxemia; E83.42 Hypomagnesemia; E83.51 Hypocalcemia; E53.8 Deficiency of other specified B group vitamins; I10 Essential (primary) hypertension; E87.70 Fluid overload, unspecified; Z71.3 Dietary counseling and surveillance; L53.9 Erythematous condition, unspecified
CPT/HCPCS: 36410; 36415; 80048; 80053; 83935; 85027; 87077; 94618; 96361; 96365; 96366; 97110; 97162; 97166; 97530; 97535; 99222; 99226; 99231; 99232; 99233; 99239; 99285; J1650; 70450; 71046; 80320; 81003; 81015; 82330; 82607; 82728; 82746; 83036; 83540; 83550; 83735; 83930; 84295; 84300; 84439; 84443; 85014; 85018; 85025; 87086; 87186; 99284; J0702; J1941; J2405; J3475; J3490

== ENCOUNTER 2018-09-13 02:13 | Outpatient (CLI) | payer BC, SELFPAY | END 2018-09-13 02:33 | PROVIDERS: PCP Family Medicine; Visit Provider Internal Medicine | DX: R69 Illness, unspecified (principal) ==

== ENCOUNTER 2018-09-18 16:46 | Outpatient (CLI) | payer BC, SELFPAY | END 2018-09-18 17:06 | PROVIDERS: PCP Family Medicine; Visit Provider Family Medicine | DX: E87.1 Hypo-osmolality and hyponatremia (principal); R53.1 Weakness; Z73.89 Other problems related to life management difficulty | CPT/HCPCS: 99305 ==

== ENCOUNTER 2018-09-19 12:56 | Outpatient (REF) | payer BC, SELFPAY ==
[2018-09-19 14:32] LABS: Abs Immature Grans 0.08 k/cumm (0.0-0.09); Absolute Basophil Count 0.03 k/cumm (0.0-0.2); Absolute Lymphocyte Count 0.88 k/cumm (1.2-3.4); Absolute Neutrophil Count 12.22 k/cumm (1.2-6.7); Basophils % 0.2; Eosinophils % 0.7; HCT 30.9 % (36.0-46.0); HGB 10.1 g/dL (12.0-15.5); Immature Grans % 0.5; Mean Corp. HGB Concentration 32.7 g/dL (32.0-36.0); Mean Corpuscular Hemoglobin 37.1 pg (27.0-33.0); Mean Corpuscular Volume 113.6 fL (80-95); Mean Platelet Volume 10.1 fL (8.0-11.0); Monocytes % 9.5; Neutrophils % 83.1; Platelet Count 545 x1000/uL (130-400); RBC 2.72 m/cumm (4.00-5.20); RBC Distribution Width 15.3 % (11.7-14.6)
[2018-09-19 14:58] LABS: Anisocytosis 1+; Diff Comment RBC Morph Reviewed; Macrocytosis 3+
[2018-09-19 14:59] LABS: Polychromasia Present
[2018-09-19 15:10] LABS: Anion Gap 11.8 mmol/L (3-11); BUN 10 mg/dL (7-18); CO2 24.2 mmol/L (21.0-32.0); Calcium 8.9 mg/dL (8.5-10.1); Chloride 95 mmol/L (98-107); Glucose 93 mg/dL (70-100); Magnesium 1.9 mg/dL (1.8-2.4); Sodium 131 mmol/L (136-145)
== END 2018-09-19 13:16 ==
LOC: LBN 12:56
PROVIDERS: PCP Family Medicine; Visit Provider Nurse Practitioner Adult Health
DX: D64.9 Anemia, unspecified (principal); E87.71 Transfusion associated circulatory overload; E87.70 Fluid overload, unspecified; A04.72 Enterocolitis due to Clostridium difficile, not specified as recurrent
CPT/HCPCS: 80048; 83735; 85025; 87324

== ENCOUNTER 2018-10-11 15:52 | Emergency (ER) | payer BC, SELFPAY ==
[2018-10-11 16:01] VITALS: BP 114/69; PULSE 117; RESP 14; TEMP 36.6; O2SAT 95
[2018-10-11 16:15] VITALS: RESP 18
[2018-10-11 16:38] LABS: Abs Immature Grans 0.03 k/cumm (0.0-0.09); Absolute Basophil Count 0.03 k/cumm (0.0-0.2); Absolute Eosinophil Count 0.03 k/cumm (0.0-0.7); Absolute Lymphocyte Count 1.07 k/cumm (1.2-3.4); Absolute Neutrophil Count 7.25 k/cumm (1.2-6.7); Basophils % 0.3; Eosinophils % 0.3; HCT 35.6 % (36.0-46.0); HGB 11.8 g/dL (12.0-15.5); Immature Grans % 0.3; Lymphocytes % 11.3; Mean Corp. HGB Concentration 33.1 g/dL (32.0-36.0); Mean Corpuscular Hemoglobin 36.6 pg (27.0-33.0); Mean Corpuscular Volume 110.6 fL (80-95); Mean Platelet Volume 9.8 fL (8.0-11.0); Monocytes % 11.6; Neutrophils % 76.2; Platelet Count 256 x1000/uL (130-400); RBC 3.22 m/cumm (4.00-5.20); RBC Distribution Width 14.2 % (11.7-14.6); White Blood Cell Count 9.51 k/cumm (4.4-10.8)
[2018-10-11 16:58] LABS: ALT 13 U/L (12-78); AST 25 U/L (15-37); Albumin 2.9 g/dL (3.4-5.0); Alkaline Phosphatase 148 U/L (46-116); Anion Gap 9.7 mmol/L (3-11); BUN 6 mg/dL (7-18); Bilirubin, Total 0.5 mg/dL (0.2-1.0); CO2 27.3 mmol/L (21.0-32.0); CREATININE 0.53 mg/dL (0.55-1.02); Calcium 9.4 mg/dL (8.5-10.1); Chloride 94 mmol/L (98-107); Glucose 131 mg/dL (70-100); Lipase 81 U/L (73-393); Magnesium 1.5 mg/dL (1.8-2.4); Potassium 4.6 mmol/L (3.5-5.1); Sodium 131 mmol/L (136-145); Total Protein 6.7 g/dL (6.4-8.2)
[2018-10-11 17:00] LABS: Troponin I < 0.02 ng/mL (0.00-0.06)
[2018-10-11 17:02] LABS: Macrocytosis 1+
[2018-10-11 17:03] LABS: Stomatocytes 2+
--- NOTE | 2018-10-11 17:17 | W.ED.GENAD ---
Discharge Plan Disposition Patient Disposition: HOME Condition: Stable Discharge Details Chief Complaint: GenMedical Clinical Impression: Fatigue, Chronic pain Primary Care Provider: Chidi Mccormack ED Provider: Carla Gar Home Meds and New Rx's Prescriptions: Continued gabapentin 300 mg capsule 300 mg PO BID Qty: 90 RF: 11 diphenhydramine HCl [Benadryl] 25 MG capsule 25 mg PO DAILY PRNRF: 0 aspirin [Aspir-81] 81 MG tablet,delayed release (DR/EC) 81 mg PO DAILY RF: 0 metoprolol tartrate 50 mg tablet 50 mg PO BID Qty: 180 RF: 3 amlodipine 5 mg tablet 5 mg PO DAILY Qty: 30 RF: 3 acetaminophen [Tylenol] 325 mg Tablet 650 mg PO Q4H PRN PRNQty: 0 RF: 0 ipratropium-albuterol 0.5 mg-3 mg(2.5 mg base)/3 mL Solution For Nebulization 3 ml UPD Q6H PRN PRNQty: 0 RF: 0 Nicotrol 10 mg Cartridge 30 cartridge Inhalation Q2H PRN PRNQty: 0 RF: 0 zinc oxide 20 % Ointment 60 g topical TID Qty: 0 RF: 0 levothyroxine 100 mcg Tablet 100 mcg PO 0600 Qty: 0 RF: 0 magnesium oxide 400 mg (241.3 mg magnesium) Tablet 800 mg PO BID Qty: 0 RF: 0 nicotine 21 mg/24 hr Patch 24 Hour 21 mg Transdermal DAILY Qty: 0 RF: 0 omeprazole 20 mg Capsule,Delayed Release(Dr/Ec) 20 mg PO DAILY@0730 Qty: 0 RF: 0 folic acid 1 mg Tablet 1 mg PO DAILY Qty: 0 RF: 0 clotrimazole 1 % Cream 60 g topical TID Qty: 0 RF: 0 vits A and D-white pet-lanolin Ointment 60 g topical TID Qty: 0 RF: 0 thiamine mononitrate (vit B1) [Vitamin B-1 (mononitrate)] 100 mg Tablet 100 mg PO DAILY Qty: 0 RF: 0 calcium carbonate 500 mg calcium (1,250 mg) tablet 500 mg PO BID Qty: 14 RF: 0 cyanocobalamin (vitamin B-12) 500 mcg lozenge 500 mcg PO DAILY Qty: 30 RF: 0 multivitamin tablet 1 tab PO DAILY Qty: 30 RF: 0 tramadol [Ultram] 50 mg tablet 25 mg PO Q6H PRN (Reason: pain) Qty: 10 RF: 0 Discharge Instructions Instructions: Chronic Pain (ED), Fatigue (ED) Additional Instructions: Drink plenty of fluids get plenty of rest. Call your primary care doctor on Sunday morning to schedule follow-up appointment for reevaluation. Return immediately to the emergency department any acute worsening or new concerning symptoms. Discharge Data Discharge Date/Time-TO BE ENTERED AT DEPARTURE: 10/11/18 19:27 Discharge Physician: Carla Gar Medical Decision Making 58yo F w/ a h/o HTN, hyperlipidemia, COPD, anemia, alcohol abuse who presents for fatigue and pain all over. She has a history of hyponatremia and hypokalemia and is concerned this is the cause. Patient requested admission shortly after my evaluation stating that she cannot go home. Patient states she was sent home by primary care doctor today after office visit and she came here for a second opinion for a check of her potassium. Vitals within normal limits. Afebrile. Shortly prior to my evaluation, patient requested a tray of food. Pt ate food from tray during entire evaluation and appeared in no acute distress. She was able to ambulate around room without cane or assistance. Screening labs and urinalysis ordered on arrival and unremarkable. Normal white blood cell count. Sodium 131. Potassium 4.6. Troponin negative. Discussed with patient obtaining a chest x-ray for her symptoms but she is declining this at this time. She denies any cough or shortness of breath and is no evidence of hypoxia. Discussed with patient that do not see an indication for admission at this time. Patient is now requesting to leave. Urinalysis not yet resulted. Patient easily ambulated out to the ED into the waiting room. Urinalysis negative for obvious infection or blood. Patient feels good to go home at this time and is requesting to leave. Patient instructed to drink plenty of fluids, follow-up with her primary care doctor and return here with any worsening symptoms. Medical Records Medical records reviewed: Yes I reviewed the patient's medical records. Lab Data Lab results reviewed: Yes I reviewed the patient's lab results. Laboratory Tests Range/Units 10/11/18 10/11/18 10/11/18 16:27 16:27 18:17 WBC (4.4-10.8) k/cumm 9.51 RBC (4.00-5.20) m/cumm 3.22 L Hgb (12.0-15.5) g/dL 11.8 L Hct (36.0-46.0) % 35.6 L MCV (80-95) fL 110.6 H MCH (27.0-33.0) pg 36.6 H MCHC (32.0-36.0) g/dL 33.1 RDW (11.7-14.6) % 14.2 Plt Count (130-400) x1000/uL 256 D MPV (8.0-11.0) fL 9.8 Immature Gran % 0.3 Neutrophils % 76.2 Lymphocytes % 11.3 Monocytes % 11.6 Eosinophils % 0.3 Basophils % 0.3 Absolute Neutrophils (1.2-6.7) k/cumm 7.25 H Absolute Lymphocytes (1.2-3.4) k/cumm 1.07 L Absolute Monocytes (0.11-0.7) k/cumm 1.10 H Absolute Eosinophils (0.0-0.7) k/cumm 0.03 Absolute Basophils (0.0-0.2) k/cumm 0.03 RBC Morphology See below Macrocytosis 1+ Stomatocytes 2+ Sodium (136-145) mmol/L 131 L Potassium (3.5-5.1) mmol/L 4.6 Chloride (98-107) mmol/L 94 L Carbon Dioxide (21.0-32.0) mmol/L 27.3 Anion Gap (3-11) mmol/L 9.7 BUN (7-18) mg/dL 6 L Creatinine (0.55-1.02) mg/dL 0.53 L Estimated GFR/1.73 m2 (mL/min/1.73m2) >= 60.00 Glucose (70-100) mg/dL 131 H Calcium (8.5-10.1) mg/dL 9.4 Magnesium (1.8-2.4) mg/dL 1.5 L Total Bilirubin (0.2-1.0) mg/dL 0.5 AST (15-37) U/L 25 ALT (12-78) U/L 13 Alkaline Phosphatase (46-116) U/L 148 H Troponin I (0.00-0.06) ng/mL < 0.02 Total Protein (6.4-8.2) g/dL 6.7 Albumin (3.4-5.0) g/dL 2.9 L Lipase (73-393) U/L 81 Urine Color (Yellow) Sanna Urine Clarity Clear Urine pH (5-8) 5.5 Ur Specific Mcdonald (1.005-1.025) 1.025 Urine Protein (Negative) mg/dL 30 H Urine Ketones (Negative) mg/dL Trace H Urine Blood (Negative) Negative Urine Nitrite (Negative) Negative Urine Bilirubin (Negative) Moderate H Urine Urobilinogen (Up TO 0.2) EU/dL 1.0 H Ur Leukocyte Esterase (Negative) Negative Urine RBC (0-2) 0-2 Urine WBC (0-5) HPF 3-5 Ur Epithelial Cells (Negative) HPF Few Urine Crystals (Negative) HPF Negative Urine Bacteria (Negative) HPF Few Urine Casts (Negative) LPF Negative Urine Mucus (Negative) Moderate Urine Other (Negative) Negative Ur Culture Indicated? No Urine Glucose (Negative) mg/dL Negative HPI General Mode of arrival: ambulatory. Date/Time Provider Initiated Documentation: 10/11/18 15:53. Limitations to Documentation: no limitations. Information obtained by: patient. HPI Narrative: Patient is a 4-year-old female with a history of hypertension, hyperlipidemia, hypothyroidism and alcohol abuse who presents for fatigue and pain all over . She states that she has been sleeping and eating less than usual. She denies any known fever, vomiting, diarrhea, chest pain, shortness of breath, abdominal pain, urinary symptoms, dizziness or headache. Patient states she had 2 doctor's appointments today, one with her primary care doctor for follow-up of her recent hospitalization to [facility] for hyponatremia, and one for a checkup with Dr. Sow today. Related Data Home Medications Medication Instructions Recorded Confirmed diphenhydramine HCl [Benadryl] 25 mg PO DAILY PRN 08/14/16 10/11/18 aspirin [Aspir-81] 81 mg PO DAILY tab 11/02/16 10/11/18 gabapentin 300 mg capsule 300 mg PO BID #90 tab-cap 03/12/18 10/11/18 metoprolol tartrate 50 mg tablet 50 mg PO BID #180 tab 03/28/18 10/11/18 amlodipine 5 mg tablet 5 mg PO DAILY #30 tab 05/23/18 10/11/18 Nicotrol 30 cartridge INHALATION Q2H PRN 09/14/18 10/11/18 PRN #0 ea acetaminophen [Tylenol] 650 mg PO Q4H PRN PRN #0 tab 09/14/18 10/11/18 calcium carbonate 500 mg PO BID #14 tab 09/14/18 10/11/18 clotrimazole 60 g TOPICAL TID #0 g 09/14/18 10/11/18 cyanocobalamin (vitamin B-12) 500 mcg PO DAILY #30 each 09/14/18 10/11/18 folic acid 1 mg PO DAILY #0 tab 09/14/18 10/11/18 ipratropium-albuterol 3 ml UPD Q6H PRN PRN #0 ml 09/14/18 10/11/18 levothyroxine 100 mcg PO 0600 #0 tab 09/14/18 10/11/18 magnesium oxide 800 mg PO BID #0 tab 09/14/18 10/11/18 multivitamin 1 tab PO DAILY #30 tab 09/14/18 10/11/18 nicotine 21 mg TRANSDERMAL DAILY #0 ea 09/14/18 10/11/18 omeprazole 20 mg PO DAILY@0730 #0 cap 09/14/18 10/11/18 thiamine mononitrate (vit B1) 100 mg PO DAILY #0 tab 09/14/18 10/11/18 [Vitamin B-1 (mononitrate)] tramadol [Ultram] 25 mg PO Q6H PRN #10 tab 09/14/18 10/11/18 vits A and D-white pet-lanolin 60 g TOPICAL TID #0 g 09/14/18 10/11/18 zinc oxide 60 g TOPICAL TID #0 g 09/14/18 10/11/18 Previous Rx's Medication Instructions Recorded gabapentin 300 mg capsule 300 mg PO BID #90 tab-cap 03/12/18 metoprolol tartrate 50 mg tablet 50 mg PO BID #180 tab 03/28/18 amlodipine 5 mg tablet 5 mg PO DAILY #30 tab 05/23/18 Nicotrol 30 cartridge INHALATION Q2H PRN 09/14/18 PRN #0 ea acetaminophen [Tylenol] 650 mg PO Q4H PRN PRN #0 tab 09/14/18 calcium carbonate 500 mg PO BID #14 tab 09/14/18 clotrimazole 60 g TOPICAL TID #0 g 09/14/18 cyanocobalamin (vitamin B-12) 500 mcg PO DAILY #30 each 09/14/18 folic acid 1 mg PO DAILY #0 tab 09/14/18 ipratropium-albuterol 3 ml UPD Q6H PRN PRN #0 ml 09/14/18 levothyroxine 100 mcg PO 0600 #0 tab 09/14/18 magnesium oxide 800 mg PO BID #0 tab 09/14/18 multivitamin 1 tab PO DAILY #30 tab 09/14/18 nicotine 21 mg TRANSDERMAL DAILY #0 ea 09/14/18 omeprazole 20 mg PO DAILY@0730 #0 cap 09/14/18 thiamine mononitrate (vit B1) 100 mg PO DAILY #0 tab 09/14/18 [Vitamin B-1 (mononitrate)] tramadol [Ultram] 25 mg PO Q6H PRN #10 tab 09/14/18 vits A and D-white pet-lanolin 60 g TOPICAL TID #0 g 09/14/18 zinc oxide 60 g TOPICAL TID #0 g 09/14/18 Allergies Allergy/AdvReac Type Severity Reaction Status Date / Time hydrochlorothiazide Allergy Severe RASH Verified 10/11/18 16:05 morphine Allergy Severe stops Verified 10/11/18 16:05 breathing simvastatin Allergy Intermediate rash Verified 10/11/18 16:05 Penicillins Allergy Unknown unknown Verified 10/11/18 16:05 CANNABINOID Allergy Unknown Swelling/Ed Uncoded 10/11/18 16:05 hans General Stated Complaint: GenMedical JOLENE: 3 Review of Systems Review of Systems All systems reviewed & are unremarkable except as noted in HPI and below Constitutional Reports as per HPI, Denies chills, Reports fatigue and Denies fever(s) Eyes Denies blurry vision ENT Denies dizziness, Denies sore throat and Denies throat swelling Cardiovascular Denies chest pain and Denies dyspnea Respiratory Denies cough and Denies dyspnea Gastrointestinal Denies abdominal pain, Denies diarrhea and Denies vomiting Genitourinary Denies hematuria and Denies dysuria Musculoskeletal Denies back pain and Denies numbness Integumentary/Breasts Denies lesions and Denies rash Neurologic Denies dizziness, Denies focal weakness and Denies numbness Endocrine Reports fatigue Allergic/Immunologic Denies throat swelling [facility] Medical History Continuous chewing tobacco dependence (Inactive 01/22/12) Hyperlipidemia (Chronic 08/21/12) Neuropathy (Chronic 12/07/16) Hyperlipidemia (Chronic 08/21/12) Foot pain, left (Chronic 12/04/16) Essential hypertension (Chronic 01/22/12) Arterial occlusive disease (Chronic 12/04/16) Hypothyroidism (Chronic) Social History Smoking/Tobacco Use Status: Current every day Alcohol Intake: current Alcohol Intake frequency: 0-2 drinks per day Alcohol type: beer and hard liquor Drug use: Never Substance use type: does not use Housing: apartment current occupation: not working at this time Pets and animals: Yes Pets and animals: cat(s) What type of physical activity do you participate in: none Duration: 15-30 minutes/day Frequency: 5-6 times per week Seatbelt use: always Drive intox or ride w/intox class a regional truck driver: No Working smoke detector in home: Yes Fire extinguisher in home: Yes Carbon monox detector in home: Yes Do you feel safe at home: Yes Do you feel safe in your relationship?: Yes Exam Const General: cooperative, healthy appearing and no acute distress HENMT Head: normal to inspection Face and sinus: normal facial exam Mouth: oral mucosae normal Eyes General: appearance normal, both eyes and all related structures Pupils: PERRL EOM: EOM intact bilaterally Neck Neck: normal visual inspection and No submandibular swelling Lymphatic: no lymphadenopathy noted Chest Chest: normal inspection of the chest and no tenderness Resp Effort & Inspection: normal respiratory effort and able to speak in complete sentences Auscultation: clear to auscultation bilaterally Cardio Rate: regular rate Rhythm: regular rhythm GI Inspection: normal to inspection Palpation: soft, not firm, not rigid and nontender Auscultation: normal bowel sounds Back/Spine/Pelvis Thoracic/Lumbar Spine: thoracic and lumbar spine normal to inspection Skin General skin exam: no rashes or lesions noted Neuro General: alert, awake, oriented x3, gait normal, moves all extremities, no meningeal signs and no focal motor deficits Cranial Nerves: CN's II-XI intact bilaterally Cognition: normal cognition Speech: speech normal Motor: muscle tone normal throughout and strength 5/5 throughout Sensory Exam: no sensory deficits noted Extrem General: normal to inspection, full ROM and no edema Psych Appearance: grossly normal Mental Status: mental status grossly normal Speech and Movement: speech and movement normal Affect: normal affect Course Vital Signs Temperature 97.9 F 10/11/18 16:01 Pulse 117 H 10/11/18 16:01 Respiratory Rate 14 10/11/18 16:01 Blood Pressure 114/69 10/11/18 16:01 Pulse Oximetry 95 10/11/18 16:01 Temperature 97.9 F 10/11/18 16:01 Temperature Source Temporal Artery Scan 10/11/18 16:01 Pulse 117 H 10/11/18 16:01 Respiratory Rate 18 10/11/18 16:15 Respiratory Effort Non-Labored 10/11/18 16:15 Respiratory Depth Normal 10/11/18 16:15 Respiratory Pattern Normal 10/11/18 16:15 Blood Pressure 114/69 10/11/18 16:01 Blood Pressure Position Sitting 10/11/18 16:01 Pulse Oximetry 95 10/11/18 16:01 Oxygen Delivery Method Room Air 10/11/18 16:01 Oxygen Flow Rate 0 10/11/18 16:01 Pain Level 0 10/11/18 16:01 Lab/Test Results Lab/Test Results: Laboratory Tests Range/Units 10/11/18 10/11/18 16:27 16:27 WBC (4.4-10.8) k/cumm 9.51 RBC (4.00-5.20) m/cumm 3.22 L Hgb (12.0-15.5) g/dL 11.8 L Hct (36.0-46.0) % 35.6 L MCV (80-95) fL 110.6 H MCH (27.0-33.0) pg 36.6 H MCHC (32.0-36.0) g/dL 33.1 RDW (11.7-14.6) % 14.2 Plt Count (130-400) x1000/uL 256 D MPV (8.0-11.0) fL 9.8 Immature Gran % 0.3 Neutrophils % 76.2 Lymphocytes % 11.3 Monocytes % 11.6 Eosinophils % 0.3 Basophils % 0.3 Absolute Neutrophils (1.2-6.7) k/cumm 7.25 H Absolute Lymphocytes (1.2-3.4) k/cumm 1.07 L Absolute Monocytes (0.11-0.7) k/cumm 1.10 H Absolute Eosinophils (0.0-0.7) k/cumm 0.03 Absolute Basophils (0.0-0.2) k/cumm 0.03 RBC Morphology See below Macrocytosis 1+ Stomatocytes 2+ Sodium (136-145) mmol/L 131 L Potassium (3.5-5.1) mmol/L 4.6 Chloride (98-107) mmol/L 94 L Carbon Dioxide (21.0-32.0) mmol/L 27.3 Anion Gap (3-11) mmol/L 9.7 BUN (7-18) mg/dL 6 L Creatinine (0.55-1.02) mg/dL 0.53 L Estimated GFR/1.73 m2 (mL/min/1.73m2) >= 60.00 Glucose (70-100) mg/dL 131 H Calcium (8.5-10.1) mg/dL 9.4 Magnesium (1.8-2.4) mg/dL 1.5 L Total Bilirubin (0.2-1.0) mg/dL 0.5 AST (15-37) U/L 25 ALT (12-78) U/L 13 Alkaline Phosphatase (46-116) U/L 148 H Troponin I (0.00-0.06) ng/mL < 0.02 Total Protein (6.4-8.2) g/dL 6.7 Albumin (3.4-5.0) g/dL 2.9 L Lipase (73-393) U/L 81
[2018-10-11 18:22] LABS: Bilirubin Moderate (Negative); Blood Negative (Negative); Clarity Clear; Glucose Negative (Negative); Ketones Trace mg/dL (Negative); Leukocyte Esterase Negative (Negative); Nitrite Negative (Negative); Specific Gravity 1.025 (1.005-1.025); pH 5.5 (5-8)
[2018-10-11 18:37] LABS: Bacteria Few HPF (Negative); Crystals Negative HPF (Negative); Epithelial Cells Few HPF (Negative); Other Cells Negative (Negative); RBC 0-2 (0-2)
[2018-10-11 18:38] LABS: C & S Indicated? No; Casts Negative LPF (Negative); Mucus Moderate (Negative)
== END 2018-10-11 19:27 | disposition home or self-care (01) ==
PROVIDERS: Emergency Provider Physician Assistant; PCP Family Medicine
DX: R53.83 Other fatigue (principal); G89.29 Other chronic pain; I10 Essential (primary) hypertension; J44.9 Chronic obstructive pulmonary disease, unspecified
CPT/HCPCS: 36415; 80053; 83690; 99283; 81003; 81015; 83735; 84484; 85025

== ENCOUNTER 2018-11-04 14:52 | Outpatient (REF) | payer BC, SELFPAY | END 2018-11-04 15:12 | LOC: LBN 14:52 | PROVIDERS: PCP Family Medicine; Visit Provider Nurse Practitioner Adult Health | DX: N39.0 Urinary tract infection, site not specified (principal) | CPT/HCPCS: 87077; 87086; 87186 ==

== ENCOUNTER 2018-11-17 11:11 | Inpatient (IN) | payer BC, SELFPAY ==
[2018-11-17] VITALS (10 sets, daily range): BP systolic 90–144; BP diastolic 57–118; PULSE 50–120; RESP 17–18; TEMP 36.3–38.8; O2SAT 90–100
--- NOTE | 2018-11-17 11:19 | W.ED.GENAD ---
Discharge Plan Disposition Patient Disposition: [facility] INPATIENT Condition: Improving Discharge Details Chief Complaint: GenMedical Clinical Impression: Diarrhea, Acute hyponatremia, Decubitus skin ulcer, Adult failure to thrive Primary Care Provider: Chidi Mccormack ED Provider: Jose Raul Tobar Home Meds and New Rx's Prescriptions: No Action gabapentin 300 mg capsule 300 mg PO BID Qty: 90 RF: 11 diphenhydramine HCl [Benadryl] 25 MG capsule 25 mg PO DAILY PRNRF: 0 aspirin [Aspir-81] 81 MG tablet,delayed release (DR/EC) 81 mg PO DAILY RF: 0 metoprolol tartrate 50 mg tablet 50 mg PO BID Qty: 180 RF: 3 amlodipine 5 mg tablet 5 mg PO DAILY Qty: 90 RF: 3 levothyroxine 100 mcg tablet 100 mcg PO 0600 Qty: 90 RF: 3 nitrofurantoin monohyd/m-cryst [Macrobid] 100 mg capsule 100 mg PO BID Qty: 14 RF: 0 acetaminophen [Tylenol] 325 mg Tablet 650 mg PO Q4H PRN PRNQty: 0 RF: 0 ipratropium-albuterol 0.5 mg-3 mg(2.5 mg base)/3 mL Solution For Nebulization 3 ml UPD Q6H PRN PRNQty: 0 RF: 0 zinc oxide 20 % Ointment 60 g topical TID Qty: 0 RF: 0 magnesium oxide 400 mg (241.3 mg magnesium) Tablet 800 mg PO BID Qty: 0 RF: 0 omeprazole 20 mg Capsule,Delayed Release(Dr/Ec) 20 mg PO DAILY@0730 Qty: 0 RF: 0 folic acid 1 mg Tablet 1 mg PO DAILY Qty: 0 RF: 0 clotrimazole 1 % Cream 60 g topical TID Qty: 0 RF: 0 vits A and D-white pet-lanolin Ointment 60 g topical TID Qty: 0 RF: 0 thiamine mononitrate (vit B1) [Vitamin B-1 (mononitrate)] 100 mg Tablet 100 mg PO DAILY Qty: 0 RF: 0 calcium carbonate 500 mg calcium (1,250 mg) tablet 500 mg PO BID Qty: 14 RF: 0 cyanocobalamin (vitamin B-12) 500 mcg lozenge 500 mcg PO DAILY Qty: 30 RF: 0 multivitamin tablet 1 tab PO DAILY Qty: 30 RF: 0 Medical Decision Making This is a pleasant 4-year-old female with a past medical history of alcohol use, hypertension, high cholesterol, hypothyroidism, who presents today for failure to thrive, diarrhea, and weakness. Patient was diagnosed with urinary tract infection roughly 1.5 weeks ago, she was started on Macrobid. Since then she has been having regular diarrhea, multiple times a day. Over the last few days she has become progressively weak, last night she slid out of her trailer and was unable to get back in until this morning. EMS reports stool and feces everywhere including beer bottles everywhere. Exam demonstrates multiple bedsores, a cachectic appearing female covered in feces. No focal abnormalities on cardiac pulmonary or abdominal exam. No focal neurologic deficits. No signs of significant trauma however there are multiple old abrasions, excoriations, and signs of notable unkeptness. Differential is broad for her symptomatology includes C. difficile, dehydration, chronic alcoholism coupled with failure to thrive. We will rehydrate, evaluate for infectious etiologies, and consult case management. Do not feel that at this time the patient is safe for her home return. She does require wound care and management, close management. 1:09 PM Patient's laboratory work-up has returned, no significant white count or leukocytosis. Electrolytes demonstrate a sodium of 119, as well as a low chloride. She is definitely been this low in the past. Urine is negative for any evidence of significant infection. Alcohol is still slightly elevated at 114, C. difficile is positive for antigen but negative for toxin. We will treat with oral vancomycin out of concerns for her clinical symptoms. The patient was given a liter of normal saline on arrival secondary to her notable clinical evidence of significant dehydration and concern for rhabdomyolysis. CPK is elevated at 428, but does not meet definition for rhabdomyolysis. Because of the patient's multiple problems, skin ulcers all over her body, and poor well-being in general I do feel that she would benefit from inpatient admission. 1:35 PM I spoken with , he agrees on the assessment and plan. The patient will be admitted for further management. I have extensively reviewed the treatment plan with the patient. I have addressed all patient concerns at this time. I have also discussed the plan with the admitting physician and they agree with the current assessment and plan and have agreed to assume responsibility for the patient. All parties demonstrate verbal understanding and agreement with our assessment and plan at this time. HPI General Date/Time Provider Initiated Documentation: 11/17/18 11:11. HPI Narrative: This is a 58-year-old female with a past medical history of alcoholism, COPD, hyponatremia, hypothyroidism, high cholesterol, hypertension, and alcoholism, who presents today for evaluation of failure to thrive via EMS. Of note on November 04 the patient was diagnosed with a urinary tract infection by her PCP. She was started on Macrobid at that time. She states that since starting the antibiotic she has been having regular diarrhea. She states that last night she did slip out of her chair, and spent the evening on the floor and eventually was able to crawl out back into the chair today. She does describe pain all over, but no focal pain. She states that this is her chronic baseline. She denies any vomiting, focal abdominal or chest pain, focal extremity pain. She denies hitting her head. She denies any numbness tingling weakness, double vision, blurry vision or loss of vision. She denies a significant headache. She has no other complaints at this time. No other modifying factors. Of note EMS does state that the area where she was staying was covered in feces, beer cans were surrounding her chair, and the patient was notably unkempt. Related Data Home Medications Medication Instructions Recorded Confirmed diphenhydramine HCl [Benadryl] 25 mg PO DAILY PRN 08/14/16 11/04/18 aspirin [Aspir-81] 81 mg PO DAILY tab 11/02/16 11/04/18 gabapentin 300 mg capsule 300 mg PO BID #90 tab-cap 03/12/18 11/04/18 metoprolol tartrate 50 mg tablet 50 mg PO BID #180 tab 03/28/18 11/04/18 acetaminophen [Tylenol] 650 mg PO Q4H PRN PRN #0 tab 09/14/18 11/04/18 calcium carbonate 500 mg PO BID #14 tab 09/14/18 11/04/18 clotrimazole 60 g TOPICAL TID #0 g 09/14/18 11/04/18 cyanocobalamin (vitamin B-12) 500 mcg PO DAILY #30 each 09/14/18 11/04/18 folic acid 1 mg PO DAILY #0 tab 09/14/18 11/04/18 ipratropium-albuterol 3 ml UPD Q6H PRN PRN #0 ml 09/14/18 11/04/18 magnesium oxide 800 mg PO BID #0 tab 09/14/18 11/04/18 multivitamin 1 tab PO DAILY #30 tab 09/14/18 11/04/18 omeprazole 20 mg PO DAILY@0730 #0 cap 09/14/18 11/04/18 thiamine mononitrate (vit B1) 100 mg PO DAILY #0 tab 09/14/18 11/04/18 [Vitamin B-1 (mononitrate)] vits A and D-white pet-lanolin 60 g TOPICAL TID #0 g 09/14/18 11/04/18 zinc oxide 60 g TOPICAL TID #0 g 09/14/18 11/04/18 amlodipine 5 mg tablet 5 mg PO DAILY #90 tab 11/01/18 11/04/18 levothyroxine 100 mcg tablet 100 mcg PO 0600 #90 tab 11/01/18 11/04/18 nitrofurantoin 100 mg PO BID #14 cap 11/08/18 monohydrate/macrocrystals 100 mg capsule Previous Rx's Medication Instructions Recorded gabapentin 300 mg capsule 300 mg PO BID #90 tab-cap 03/12/18 metoprolol tartrate 50 mg tablet 50 mg PO BID #180 tab 03/28/18 acetaminophen [Tylenol] 650 mg PO Q4H PRN PRN #0 tab 09/14/18 calcium carbonate 500 mg PO BID #14 tab 09/14/18 clotrimazole 60 g TOPICAL TID #0 g 09/14/18 cyanocobalamin (vitamin B-12) 500 mcg PO DAILY #30 each 09/14/18 folic acid 1 mg PO DAILY #0 tab 09/14/18 ipratropium-albuterol 3 ml UPD Q6H PRN PRN #0 ml 09/14/18 magnesium oxide 800 mg PO BID #0 tab 09/14/18 multivitamin 1 tab PO DAILY #30 tab 09/14/18 omeprazole 20 mg PO DAILY@0730 #0 cap 09/14/18 thiamine mononitrate (vit B1) 100 mg PO DAILY #0 tab 09/14/18 [Vitamin B-1 (mononitrate)] vits A and D-white pet-lanolin 60 g TOPICAL TID #0 g 09/14/18 zinc oxide 60 g TOPICAL TID #0 g 09/14/18 amlodipine 5 mg tablet 5 mg PO DAILY #90 tab 11/01/18 levothyroxine 100 mcg tablet 100 mcg PO 0600 #90 tab 11/01/18 nitrofurantoin 100 mg PO BID #14 cap 11/08/18 monohydrate/macrocrystals 100 mg capsule Allergies Allergy/AdvReac Type Severity Reaction Status Date / Time hydrochlorothiazide Allergy Severe RASH Verified 11/04/18 13:48 morphine Allergy Severe stops Verified 11/04/18 13:48 breathing simvastatin Allergy Intermediate rash Verified 11/04/18 13:48 Penicillins Allergy Unknown unknown Verified 11/04/18 13:48 CANNABINOID Allergy Unknown Swelling/Ed Uncoded 11/04/18 13:48 hans General JOLENE: 3 Review of Systems Review of Systems All systems reviewed & are unremarkable except as noted in HPI and below PFSH Social History Smoking/Tobacco Use Status: Current every day Alcohol Intake: current Alcohol Intake frequency: 0-2 drinks per day Alcohol type: beer and hard liquor Drug use: Never Substance use type: does not use Housing: apartment current occupation: not working at this time Pets and animals: Yes Pets and animals: cat(s) What type of physical activity do you participate in: none Duration: 15-30 minutes/day Frequency: 5-6 times per week Seatbelt use: always Drive intox or ride w/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 3.ENT: Atraumatic external nose and ears. Moist MM. Neck: Symmetric, trachea midline, No thyromegaly. 4.CVS: +S1/S2, No murmurs or gallops. Peripheral pulses 2+ and equal in all extremities. Brisk capillary refill in all extremities. 5.RESP: Unlabored respiratory effort. Clear to auscultation bilaterally. No wheezes rales or rhonchi 6.GI: Soft, Nontender/Nondistended, No hepatosplenomegaly. No guarding or rebound. 7.MSK: No cyanosis or clubbing, Normal movement of all extremities. Patient does demonstrate notable bruises, and eschars over her knees elbows and hands. Notable sores present over her right anterior abdomen and lower chest, as well as her buttock. She is covered in notable stool. Left foot demonstrates no tenderness of the ankle or foot, both feet are slightly pale however she does demonstrate good capillary refill bilaterally in all her toes less than 3 seconds, as well as a +1 dorsalis pedis bilaterally. At this time no clinical evidence of severe claudication or limb ischemia. 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 Sensation grossly intact, no focal neurologic deficits. 10.Psych: (AAO) x3. Appropriate mood and affect. Surprisingly optimistic despite clinical picture
[2018-11-17] MEDS: Normal Saline 1,000 ML 1000 ML IV (11:55)
[2018-11-17 12:07] LABS: Abs Immature Grans 0.01 k/cumm (0.0-0.09); Absolute Basophil Count 0.01 k/cumm (0.0-0.2); Absolute Lymphocyte Count 0.49 k/cumm (1.2-3.4); Absolute Monocyte Count 0.32 k/cumm (0.11-0.7); Absolute Neutrophil Count 6.52 k/cumm (1.2-6.7); Basophils % 0.1; HCT 33.8 % (36.0-46.0); HGB 11.9 g/dL (12.0-15.5); Immature Grans % 0.1; Lymphocytes % 6.7; Mean Corp. HGB Concentration 35.2 g/dL (32.0-36.0); Mean Corpuscular Hemoglobin 35.4 pg (27.0-33.0); Mean Corpuscular Volume 100.6 fL (80-95); Mean Platelet Volume 9.7 fL (8.0-11.0); Monocytes % 4.4; Neutrophils % 88.7; Platelet Count 140 x1000/uL (130-400); RBC 3.36 m/cumm (4.00-5.20); RBC Distribution Width 12.8 % (11.7-14.6); White Blood Cell Count 7.35 k/cumm (4.4-10.8)
[2018-11-17 12:26] LABS: Creatine Kinase 428 U/L (26-192)
[2018-11-17 12:30] LABS: PTT Activated 29.4 sec (21.0-31.4); Prothrombin Time 9.8 sec (9.3-11.0)
[2018-11-17 12:31] LABS: Bilirubin Negative (Negative); Blood Trace-lysed (Negative); Clarity Clear (Clear); Glucose Negative (Negative); Ketones 15 mg/dL (Negative); Leukocyte Esterase Negative (Negative); Nitrite Negative (Negative); Specific Gravity <= 1.005 (1.005-1.025); Urobilinogen 0.2 EU/dL (Up TO 0.2)
[2018-11-17 12:46] LABS: Bacteria Negative HPF (Negative); C & S Indicated? No; Casts Negative LPF (Negative); Crystals Negative HPF (Negative); Epithelial Cells Negative HPF (Negative); Mucus Negative (Negative); Other Cells Few Transitional (Negative); WBC Negative HPF (0-5)
[2018-11-17 12:54] LABS: ALT 42 U/L (12-78); AST 118 U/L (15-37); Albumin 2.2 g/dL (3.4-5.0); Alkaline Phosphatase 128 U/L (46-116); Anion Gap 14.1 mmol/L (3-11); BUN 11 mg/dL (7-18); Bilirubin, Total 0.3 mg/dL (0.2-1.0); CO2 21.9 mmol/L (21.0-32.0); Calcium 7.8 mg/dL (8.5-10.1); Chloride 83 mmol/L (98-107); ETHANOL BLOOD 114.4 mg/dL (<3); Glucose 76 mg/dL (70-100); Potassium 3.5 mmol/L (3.5-5.1); TSH (W/Ref FT4) 3.16 uIU/mL (0.358-3.74); Total Protein 5.6 g/dL (6.4-8.2)
[2018-11-17 13:01] LABS: Sodium 119 mmol/L (136-145)
[2018-11-17] MEDS: Vancomycin 125 MG CAP PO (14:27)
--- NOTE | 2018-11-17 14:47 | W.PM.HP.N ---
Date of service: 11/17/18 Time of Service: 14:48 Assessment and Plan (1) Hyponatremia: Start date: 11/17/18 Start time: 16:23 Current visit: No Status: Chronic Acute on chronic hyponatremia from ETOH worsened from diarrhea and water loss. Slowly replace sodium with NS and recheck sodium level in couple hours (2) Alcohol use: Start date: 11/17/18 Start time: 16:26 Current visit: No Status: Acute States only drank 1 beer couple hours ago however Ethyl alchol 114.4, placed on CIWA, oxazepam ordered TID with ativan prn and continue to monitor for withdrawal (3) Wounds and injuries: Start date: 11/17/18 Start time: 16:27 Current visit: Yes Status: Acute Multiple wounds to bilateral knees, unstageable to right hip and lateral thigh, wound consult placed. (4) Folate deficiency: Start date: 11/17/18 Start time: 16:28 Current visit: No Status: Acute In setting of chronic anemia from alcohol continue folate, mulitivitamin and thiamine (5) Hypothyroidism: Start date: 11/17/18 Start time: 16:29 Current visit: No Status: Chronic TSH normal range continue current dose (6) DVT prophylaxis: Start date: 11/17/18 Start time: 16:29 Current visit: No Status: Acute Enoxaparin subcu (7) Failure to thrive: Start date: 11/17/18 Start time: 16:29 Current visit: No Status: Acute in setting of chronic alcohol drinker, malnourished, nutrition consult placed. (8) Tobacco abuse: Start date: 11/17/18 Start time: 16:36 Current visit: Yes Status: Acute Nicotine replacement offered (9) Diarrhea: Start date: 11/17/18 Start time: 16:36 Current visit: Yes Status: Acute Lactoferrin, cdiff, stool cultures ordered and pending, hydrate patient and consider immodium if not infectious (10) Lala infection: Start date: 11/17/18 Start time: 16:37 Current visit: Yes Status: Acute Severe infection to multiple parts of the body, IV fluconazole with clotrimazole ordered. History of Present Illness Chief Complaint: Hyponatremia, Wounds, Failure to Thrive, Diarrhea, Dehydration Narrative: 58 y.o female with PMH Alcohol abuse,COPD, HTN, High cholesterol, hypothyroidism, hyponatremia, presenting today to [facility] emergency department for dehydration, diarrhea, weakness. Patient was seen by Primary approximately one week ago for UTI and placed on Macrobid. She apparently slipped out of her chair last night and spent the evening on the floor crawling back to her chair today. She was brought in via EMS. Inside the home was covered in feces and beer cans surrounding her chair per ED provider note. She has been asked to be evaluated and admitted by our service. She will be admitted to M/S for observation. Mrs. Leon is well known to us. She is a heavy drinker, and smoker. She is unable to give a true a history of current events. She knows she fell and EMS brought her in but unable to truly piece all events together. Her sodium in the Emergency Department was 119, there could be some component of confusion from hyponatremia, her Ethnyl level is also 114 which is likely contributing to her presentation.. Light hydration will be started with repeat sodium levels every couple of hours. Potassium was borderline at 3.5 and mag 1.4. Her stool will be r/o for infectious process. She has multiple wounds and abrasions. She also has candidas infection to periarea, perineum, moving up her right side, under her breast and some on her left hip. Unstageable ulcer to her right hip. Eschar to her lateral aspect of her knee, that may need to be debrided. Wound has been consulted. IV fluconazole will be started and a compund mix of A/D, zinc and clotrimazole to be applied to her skin. Consult podiatry for her feet, as her right great toe is swollen and both feet are cool with doppler pulses only. She does have severe PVD. She will be monitored for alcohol withdrawal on CIWA, oxzaepam started and ativan for prn. Review of Systems Constitutional Reports as per HPI Eyes Reports as per HPI ENT Reports as per HPI Cardiovascular Reports system reviewed and no additional complaints, except as docu Respiratory Reports as per HPI Gastrointestinal Reports as per HPI Genitourinary Reports as per HPI Musculoskeletal Reports as per HPI Integumentary/Breasts Reports system reviewed and no additional complaints, except as docu Neurologic Reports system reviewed and no additional complaints, except as docu Psychiatric Reports system reviewed and no additional complaints, except as docu Endocrine Reports as per HPI Hematologic/Lymphatic Reports system reviewed and no additional complaints, except as docu Allergic/Immunologic Reports system reviewed and no additional complaints, except as docu [facility] Medical History Continuous chewing tobacco dependence (Inactive 01/22/12) Hyperlipidemia (Chronic 08/21/12) Neuropathy (Chronic 12/07/16) Hyperlipidemia (Chronic 08/21/12) Foot pain, left (Chronic 12/04/16) Essential hypertension (Chronic 01/22/12) Arterial occlusive disease (Chronic 12/04/16) Hypothyroidism (Chronic) Social History Smoking/Tobacco Use Status: Current every day Alcohol Intake: current Alcohol Intake frequency: 0-2 drinks per day Alcohol type: beer and hard liquor Drug use: Never Substance use type: does not use Housing: apartment current occupation: not working at this time Pets and animals: Yes Pets and animals: cat(s) What type of physical activity do you participate in: none Duration: 15-30 minutes/day Frequency: 5-6 times per week Seatbelt use: always Drive intox or ride w/intox 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: No Working smoke detector in home: Yes Fire extinguisher in home: Yes Carbon monox detector in home: Yes Do you feel safe at home: Yes Do you feel safe in your relationship?: Yes Meds Home Medications Medication Instructions Recorded Confirmed Type diphenhydramine HCl [Benadryl] 25 mg PO DAILY PRN 08/14/16 11/17/18 History aspirin [Aspir-81] 81 mg PO DAILY tab 11/02/16 11/17/18 History gabapentin 300 mg capsule 300 mg PO BID #90 tab-cap 03/12/18 11/17/18 Rx metoprolol tartrate 50 mg tablet 50 mg PO BID #180 tab 03/28/18 11/17/18 Rx acetaminophen [Tylenol] 650 mg PO Q4H PRN PRN #0 tab 09/14/18 11/17/18 Rx calcium carbonate 500 mg PO BID #14 tab 09/14/18 11/17/18 Rx clotrimazole 60 g TOPICAL TID #0 g 09/14/18 11/17/18 Rx cyanocobalamin (vitamin B-12) 500 mcg PO DAILY #30 each 09/14/18 11/17/18 Rx folic acid 1 mg PO DAILY #0 tab 09/14/18 11/17/18 Rx ipratropium-albuterol 3 ml UPD Q6H PRN PRN #0 ml 09/14/18 11/17/18 Rx magnesium oxide 800 mg PO BID #0 tab 09/14/18 11/17/18 Rx multivitamin 1 tab PO DAILY #30 tab 09/14/18 11/17/18 Rx omeprazole 20 mg PO DAILY@0730 #0 cap 09/14/18 11/17/18 Rx thiamine mononitrate (vit B1) 100 mg PO DAILY #0 tab 09/14/18 11/17/18 Rx [Vitamin B-1 (mononitrate)] vits A and D-white pet-lanolin 60 g TOPICAL TID #0 g 09/14/18 11/17/18 Rx zinc oxide 60 g TOPICAL TID #0 g 09/14/18 11/17/18 Rx amlodipine 5 mg tablet 5 mg PO DAILY #90 tab 11/01/18 11/17/18 Rx levothyroxine 100 mcg tablet 100 mcg PO 0600 #90 tab 11/01/18 11/17/18 Rx nitrofurantoin 100 mg PO BID #14 cap 11/08/18 11/17/18 Rx monohydrate/macrocrystals 100 mg capsule Allergies Allergy/AdvReac Type Severity Reaction Status Date / Time hydrochlorothiazide Allergy Severe RASH Verified 11/04/18 13:48 morphine Allergy Severe stops Verified 11/04/18 13:48 breathing simvastatin Allergy Intermediate rash Verified 11/04/18 13:48 Penicillins Allergy Unknown unknown Verified 11/04/18 13:48 CANNABINOID Allergy Unknown Swelling/Ed Uncoded 11/04/18 13:48 hans Exam Const General: disheveled and frail appearing Nutritional Appearance: malnourished and underweight Orientation: alert, awake and confused Other: cachectic appearing HENMT Head: normal to inspection Face and sinus: normal facial exam Teeth and gingiva: poor dentition Eyes Pupils: PERRL Neck Lymphatic: no lymphadenopathy noted and no lymphedema noted Chest Chest: normal inspection of the chest Resp Effort & Inspection: normal respiratory effort and able to speak in complete sentences Auscultation: clear to auscultation bilaterally Cardio Jugular venous pressure: no JVD Rate: regular rate Rhythm: regular rhythm Heart Sounds: S1 normal and S2 normal GI Inspection: normal to inspection Palpation: soft Auscultation: normal bowel sounds Back/Spine/Pelvis Back: no CVA tenderness Skin Lesions: lesion noted (to right side, radiating up under breast, left hip) Wounds: wounds noted Hair: brittle Other: Unstageable to right hip, multiple abrasions to bilateral knees, wounds to lateral aspect of right thigh with possible eschar Neuro General: alert, awake, oriented and confused Cognition: abnormal cognition Speech: speech normal Extrem Right lower extremity: edema and foot Left lower extremity: edema and foot Other: bilateral feet are cyanotic, with pulses to doppler only. Right toe swollen, Results Labs : 11/17/18 11:45 11/17/18 11:45 Laboratory Results - last 24 hr 11/17/18 11/17/18 11/17/18 11:45 11:45 11:45 WBC 7.35 RBC 3.36 L Hgb 11.9 L Hct 33.8 L MCV 100.6 H MCH 35.4 H MCHC 35.2 RDW 12.8 Plt Count 140 MPV 9.7 Immature Gran % 0.1 Neutrophils % 88.7 Lymphocytes % 6.7 Monocytes % 4.4 Eosinophils % 0.0 Basophils % 0.1 Absolute Neutrophils 6.52 Absolute Lymphocytes 0.49 L Absolute Monocytes 0.32 Absolute Eosinophils 0.00 Absolute Basophils 0.01 PT INR APTT Sodium 119 L* Potassium 3.5 Chloride 83 L Carbon Dioxide 21.9 Anion Gap 14.1 H BUN 11 Creatinine 0.40 L Estimated GFR/1.73 m2 >= 60.00 Glucose 76 Calcium 7.8 L Total Bilirubin 0.3 AST 118 H ALT 42 Alkaline Phosphatase 128 H Creatine Kinase 428 H Total Protein 5.6 L Albumin 2.2 L TSH 3.16 Urine Color Urine Clarity Urine pH Ur Specific [place] Urine Protein Urine Ketones Urine Blood Urine Nitrite Urine Bilirubin Urine Urobilinogen Ur Leukocyte Esterase Urine RBC Urine WBC Ur Epithelial Cells Urine Crystals Urine Bacteria Urine Casts Urine Mucus Urine Other Ur Culture Indicated? Urine Glucose Ethyl Alcohol 114.4 11/17/18 11/17/18 11:45 12:25 WBC RBC Hgb Hct MCV MCH MCHC RDW Plt Count MPV Immature Gran % Neutrophils % Lymphocytes % Monocytes % Eosinophils % Basophils % Absolute Neutrophils Absolute Lymphocytes Absolute Monocytes Absolute Eosinophils Absolute Basophils PT 9.8 INR 1.0 APTT 29.4 Sodium Potassium Chloride Carbon Dioxide Anion Gap BUN Creatinine Estimated GFR/1.73 m2 Glucose Calcium Total Bilirubin AST ALT Alkaline Phosphatase Creatine Kinase Total Protein Albumin TSH Urine Color Yellow Urine Clarity Clear Urine pH 6.0 Ur Specific [place] <= 1.005 Urine Protein Negative Urine Ketones 15 H Urine Blood Trace-lysed H Urine Nitrite Negative Urine Bilirubin Negative Urine Urobilinogen 0.2 Ur Leukocyte Esterase Negative Urine RBC 3-5 H Urine WBC Negative Ur Epithelial Cells Negative Urine Crystals Negative Urine Bacteria Negative Urine Casts Negative Urine Mucus Negative Urine Other Few transitional Ur Culture Indicated? No Urine Glucose Negative Ethyl Alcohol Last Vital Signs Temp 36.7 C 11/17/18 11:38 Pulse 91 H 11/17/18 13:01 Resp 18 11/17/18 11:38 BP 144/118 H 11/17/18 13:01 Pulse Ox 100 11/17/18 12:40
[2018-11-17 15:19] LABS: Magnesium 1.4 mg/dL (1.8-2.4)
[2018-11-17] MEDS: Enoxaparin 40 MG/0.4 ML SYR SC (16:01)
[2018-11-17] MEDS: Acetaminophen 325 MG TAB 650 MG PO (16:02)
[2018-11-17] MEDS: Potassium Chloride 20 MEQ TABCR 40 MEQ PO (16:02)
[2018-11-17] MEDS: FLUCONAZOLE 200 MG/100 ML BAG 100 MG IVPB (16:03)
[2018-11-17] MEDS: Normal Saline 1,000 ML 75 ML IV (16:04)
--- NOTE | 2018-11-17 17:14 | NUR.NOTE ---
Upon admission at approximately 15:00 nursing assessed the patient's multiple wounds. Starting on the face just under the chin the patient has what appears to be an abrasion. It is crusted over and not producing any exudate. The patient has multiple red papular areas across her right chest, abdomen, and under her breasts. There is a skin tear on her right lateral forearm. The patient has a significant unstageable pressure area on her right trochanter with slough. Fungal rash noted on her vaginal region. Eschar covered area on her right lateral mid-calf. Multiple small scabbed lesions bilaterally on the knees. Dusky cool skin noted bilaterally in the feet, pulse found with doppler. Large excoriated / fungal rash area noted bilaterally on buttocks and sacrum, with some open areas. Antifungal / barrier cream applied to buttocks and vagina. See wound nurse consult note for further treatment information. Nursing Note:
--- NOTE | 2018-11-17 17:15 | WOUNDCARE ---
Wound Care Report 11/17/18 Pt is a _58__ year old female seen for _Failure to thrive___. Chart reviewed, including H&P, recent labs, and vital signs, and other providers? reports. Medical Hx and labs pertinent to wound healing: Abnormal lab results 11/17/18 11/17/18 11/17/18 Range/Units 11:45 11:45 11:45 RBC 3.36 L (4.00-5.20) m/cumm Hgb 11.9 L (12.0-15.5) g/dL Hct 33.8 L (36.0-46.0) % MCV 100.6 H (80-95) fL MCH 35.4 H (27.0-33.0) pg Absolute Lymphocytes 0.49 L (1.2-3.4) k/cumm Sodium 119 L* (136-145) mmol/L Chloride 83 L (98-107) mmol/L Anion Gap 14.1 H (3-11) mmol/L Creatinine 0.40 L (0.55-1.02) mg/dL Calcium 7.8 L (8.5-10.1) mg/dL Magnesium (1.8-2.4) mg/dL AST 118 H (15-37) U/L Alkaline Phosphatase 128 H (46-116) U/L Creatine Kinase 428 H (26-192) U/L Total Protein 5.6 L (6.4-8.2) g/dL Albumin 2.2 L (3.4-5.0) g/dL Urine Ketones (Negative) mg/dL Urine Blood (Negative) Urine RBC (0-2) 11/17/18 11/17/18 Range/Units 11:45 12:25 RBC (4.00-5.20) m/cumm Hgb (12.0-15.5) g/dL Hct (36.0-46.0) % MCV (80-95) fL MCH (27.0-33.0) pg Absolute Lymphocytes (1.2-3.4) k/cumm Sodium (136-145) mmol/L Chloride (98-107) mmol/L Anion Gap (3-11) mmol/L Creatinine (0.55-1.02) mg/dL Calcium (8.5-10.1) mg/dL Magnesium 1.4 L (1.8-2.4) mg/dL AST (15-37) U/L Alkaline Phosphatase (46-116) U/L Creatine Kinase (26-192) U/L Total Protein (6.4-8.2) g/dL Albumin (3.4-5.0) g/dL Urine Ketones 15 H (Negative) mg/dL Urine Blood Trace-lysed H (Negative) Urine RBC 3-5 H (0-2) Active Inpatient Medications Report Generic Name Dose Route Start Last Admin Trade Name Freq PRN Reason Stop Dose Admin Acetaminophen 650 mg 11/17/18 13:28 11/17/18 16:02 Tylenol PO 650 mg Q4H PRN PRN Administration Albuterol/Ipratropium 3 ml 11/17/18 13:35 Duoneb Updraft UPD Q6H PRN PRN Amlodipine Besylate 5 mg 11/18/18 08:30 Norvasc PO DAILY [facility] Aspirin 81 mg 11/18/18 08:30 Ecotrin PO DAILY [facility] Calcium Carbonate 1.25 gm 11/17/18 20:00 Os-Miguel Angel 500 PO BID [facility] Clotrimazole 60 gm/ Zinc Oxide 0 gm 11/17/18 20:00 60 gm/ Vitamin A/Vitamin D 60 TP gm TID [facility] Cyanocobalamin 500 mcg 11/18/18 08:30 Vitamin B-12 PO DAILY [facility] Dimethicone/Zinc Oxide 0 gm 11/17/18 13:28 Jo Protect Cream TP PRN PRN Enoxaparin Sodium 40 mg 11/17/18 14:00 11/17/18 16:01 Lovenox SC 40 mg Q24H JIMENEZ Administration Esomeprazole Sodium 40 mg 11/18/18 08:30 Nexium I.V. IVP DAILY [facility] Folic Acid 1 mg 11/18/18 08:30 Folate PO 11/24/18 08:31 DAILY [facility] Gabapentin 300 mg 11/17/18 20:00 Neurontin PO BID [facility] Sodium Chloride 1,000 mls @ 75 mls/hr 11/17/18 13:30 11/17/18 16:04 Saline 1000ml Bag IV 75 mls/hr INFUSION JIMENEZ Administration Fluconazole 100 mg/ Device 50 mls @ 50 mls/hr 11/18/18 16:00 IV Q24H JIMENEZ Magnesium Sulfate 4 gm in 100 mls @ 25 mls/hr 11/17/18 16:00 IVPB 11/17/18 19:59 NOW ONE IV Miscellaneous Supplies 1 each 11/17/18 13:30 IV DIRECTED [facility] IV Miscellaneous Supplies 1 each 11/17/18 13:30 IV DIRECTED [facility] Levothyroxine Sodium 100 mcg 11/18/18 06:00 Levothroid PO 0600 JIMENEZ Lorazepam 0 mg 11/17/18 13:28 Ativan Injection IVP DIRECTED PRN Magnesium Oxide 800 mg 11/17/18 20:00 Mag-Ox 400 PO BID [facility] Metoprolol Tartrate 50 mg 11/17/18 20:00 Lopressor PO BID [facility] Multivitamins 1 tab 11/18/18 08:30 PO 11/24/18 08:31 DAILY JIMENEZ Nicotine 14 mg 11/17/18 14:50 Nicoderm Cq TD DAILY PRN PRN Oxazepam 15 mg 11/17/18 13:28 Serax PO Q6H PRN PRN Sodium Chloride 0 ml 11/17/18 13:28 Saline Flush 10 Ml Syringe IVP PRN PRN Thiamine HCl 100 mg 11/18/18 08:30 PO 11/24/18 08:31 DAILY JIMENEZ Discontinued Medications Generic Name Dose Route Start Last Admin Trade Name Freq PRN Reason Stop Dose Admin Sodium Chloride 1,000 mls @ 1,000 mls/hr 11/17/18 11:17 11/17/18 15:00 Saline 1000ml Bag IV 11/17/18 12:16 Infused BOLUS ONE Infusion Fluconazole 200 mg in 100 mls @ 100 mls/hr 11/17/18 16:00 11/17/18 16:03 Diflucan/N. Saline 200 Mg/100 Ml IVPB 11/17/18 16:59 100 mls/hr NOW ONE Administration Potassium Chloride 40 meq 11/17/18 15:02 11/17/18 16:02 K-Dur PO 11/17/18 15:03 40 meq NOW ONE Administration Vancomycin HCl 125 mg 11/17/18 12:47 11/17/18 14:27 Vancocin PO 11/17/18 12:48 125 mg NOW ONE Administration Wound Hx if applicable Pt states she ?fell on and I laid on the floor for 22 hours. Those wounds are because I tried to get up so many times and couldn?t? Wound Assessment Findings Bilateral knees have multiple scabbed areas which appear to be abrasions. Surrounding tissue reddened, not any increased warmth or induration noted. Wound beds have intact ch eschar and no drainage is noted. Buttocks/ debby area/ upper thighs- Area is denuded with scattered less than 0.2 cm white pustules. 100 percent of wound bed/ area is red, painful with no drainage noted. Periphery pinkish. Edges are ill defined. Vaginal area measurements approximately 15 cm x 10 cm x 0.1 cm. Buttocks/ inner thigh area approximately 20 cm x 15 cm x 0.1 cm. Area with ill defined edges, denuded skin with scattered white pustules measuring approximately less than 0.2 cm. All areas blanchable. No induration noted. Area is painful with no increase in warmth. Right Hip- 4.5 cm x 4 cm x 0.1 cm reddish area with a 2.5 cm x 3 cm yellow/ ch eschar in center. Areas are reddened. No drainage noted. No increase in warmth. Peripheral skin includes areas of reddish skin with scattered white pustules measuring less than 0.2 cm. Right knee- Lateral to patella are two areas of black eschar. Proximal area measures 4 cm x 2.6 cm x 0.1 cm. Distal area measures 0.6 cm x 1.6 cm x 0.1 cm. Surrounding skin is reddened with no apparent drainage noted. Eschar is firmly adherent and comprises 100 percent of wound bed on both areas. No induration noted. No increased warmth is noted. Bilateral Feet- Bilateral feet have positive pp by Doppler. Right foot is 1 plus non pitting edema noted. Right foot toes are deformed, bending inward towards plantar aspect of foot and in toward great toe. Great toe tip appears swollen. Bilateral feet are purplish in color with cap refill greater than 3 seconds. Right chest/ under breast- Skin appears denuded and fungal, reddened with scattered white pustules measuring less than 0.2 cm. Partial thickness skin loss noted both areas with pinkish skin around periphery. No increased warmth or drainage noted. Underneath right breast measures 2.5 cm x 8.5 cm x 0.1 cm. Right rib area measures 3.3 cm x 4.5 cm x 0.1 cm. Both areas are painful to touch. Right Forearm Skin Tear- 2.3 cm x 0.4 cm x 0.1 cm area of partial thickness skin loss. Periphery pinkish. No increased warmth, no induration noted. No drainage noted. Patients Mobility status Pt able to move with 2 maximum assist. Nutritional Status- nutrition consult recommended Continence Management plan Pt has indwelling love catheter in place. Recommendations: Bilateral knees- leave LINE INSTALLER. Debby-area/ buttocks/ inner thighs- Apply Triple Cream (1/3 Clotrimazole, 1/3 zinc oxide, 1/3 Vitamin A and D ointment) TID and PRN. Chest/ Under right breast- Apply Triple cream TID and PRN. R forearm skin tear- Cleanse with anasept cleanse. Let dwell 2 min, pat dry apply mepilex with border, change weekly and PRN. Bilateral feet- Consult Podiatry. Apply skin prep to heels and offload. Right hip- Cleanse with anasept spray. Let dwell 2 minutes. Pat dry. Apply anasept gel. Cover with mepilex with border. Change daily and PRN. Right lateral knee- Cleanse with anasept spray. Let dwell 2 minutes. Pat dry. Apply anasept gel. Cover with mepilex with border. Change daily and PRN. Thank you for the consult.
[2018-11-17] MEDS: MAGNESIUM SULFATE 4 GM/100 ML BAG IVPB (18:14)
[2018-11-17 19:32] LABS: Sodium 125 mmol/L (136-145)
[2018-11-17] MEDS: Gabapentin 300 MG CAP PO (20:37)
[2018-11-17] MEDS: Magnesium Oxide 400 MG TAB 800 MG PO (20:37)
[2018-11-17] MEDS: Calcium Carbonate 1.25 GM TAB PO (20:37)
[2018-11-17 21:27] LABS: Sodium 124 mmol/L (136-145)
[2018-11-17] MEDS: Metoprolol 50 MG TAB PO (21:58)
[2018-11-18] VITALS (76 sets, daily range): BP systolic 80–130; BP diastolic 51–99; PULSE 63–150; RESP 0–26; TEMP 34–37.8; O2SAT 82–100
[2018-11-18] MEDS: Acetaminophen 325 MG TAB 650 MG PO ×2 (00:28→19:57)
[2018-11-18] MEDS: LORazepam 1 MG TAB PO/SL (00:28)
[2018-11-18] MEDS: Normal Saline 1,000 ML 100 ML IV ×2 (05:50→16:23)
[2018-11-18] MEDS: Levothyroxine 100 MCG TAB PO (05:50)
[2018-11-18 07:26] LABS: HGB 9.5 g/dL (12.0-15.5); Mean Corpuscular Volume 102.2 fL (80-95)
[2018-11-18 07:35] LABS: Anion Gap 8.9 mmol/L (3-11); BUN 7 mg/dL (7-18); CO2 23.1 mmol/L (21.0-32.0); CREATININE 0.43 mg/dL (0.55-1.02); Calcium 7.4 mg/dL (8.5-10.1); Chloride 94 mmol/L (98-107); Glucose 75 mg/dL (70-100); Potassium 3.3 mmol/L (3.5-5.1); Sodium 126 mmol/L (136-145)
[2018-11-18 07:40] LABS: Abs Immature Grans 0.02 k/cumm (0.0-0.09); Absolute Basophil Count 0.01 k/cumm (0.0-0.2); Absolute Eosinophil Count 0.04 k/cumm (0.0-0.7); Absolute Lymphocyte Count 0.21 k/cumm (1.2-3.4); Absolute Neutrophil Count 5.44 k/cumm (1.2-6.7); Basophils % 0.2; Eosinophils % 0.7; HCT 27.4 % (36.0-46.0); Immature Grans % 0.3; Lymphocytes % 3.5; Mean Corp. HGB Concentration 34.7 g/dL (32.0-36.0); Mean Corpuscular Hemoglobin 35.4 pg (27.0-33.0); Mean Platelet Volume 10.2 fL (8.0-11.0); Monocytes % 3.4; Neutrophils % 91.9; RBC 2.68 m/cumm (4.00-5.20); RBC Distribution Width 12.6 % (11.7-14.6); White Blood Cell Count 5.92 k/cumm (4.4-10.8)
[2018-11-18] MEDS: Normal Saline Flush 10 ML SYR IVP ×2 (08:01→19:53)
[2018-11-18 08:05] LABS: Platelet Count 105 x1000/uL (130-400)
[2018-11-18 08:06] LABS: Diff Comment RBC Morph Reviewed; Hypochromasia 1+; Macrocytosis 1+
[2018-11-18 08:12] LABS: ALT 31 U/L (12-78); AST 64 U/L (15-37); Albumin 1.9 g/dL (3.4-5.0); Alkaline Phosphatase 113 U/L (46-116); Bilirubin, Total 0.3 mg/dL (0.2-1.0); Creatine Kinase 474 U/L (26-192); Magnesium 2.3 mg/dL (1.8-2.4); Total Protein 4.4 g/dL (6.4-8.2)
--- NOTE | 2018-11-18 09:16 | DI.RAD_ITS ---
SYMPTOM/DIAGNOSIS: FEVER, HYPOXIA PORTABLE AP CHEST: 0915 hours 11/18 The heart is not enlarged. There appear to be changes of COPD and pulmonary scarring,. No focal consolidation seen. No gross pleural effusion on this frontal film. CONCLUSION: No evidence of acute disease.
--- NOTE | 2018-11-18 09:48 | PDOC.CMIN ---
Care Management Initial Assess REASON FOR HOSPITALIZATION:: hyponatremia, dehydration, skin ulcers, failure to thrive PAST MEDICAL HISTORY/PAST SURGICAL HISTORY:: Medical: chewing tobacco dependence, hyperlipidemia, neuropathy, chronic L foot pain, essential hypertension, arterial occlusive disease, hypothyroidism, chronic alcohol abuse, H/O inability to care for self. Surgical: none PREVIOUS FUNCTIONAL STATUS/SOCIAL/FAMILY SUPPORTS:: Kayla lives alone in a first floor apt. in [place]. She has been failing for some time without successful community intervention. 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 She has not worked at her job at [employer] since May 05 2018. The only contact she has listed is a friend Nancy Mcgrath. CM spoke with Nancy who indicates she is closest person to Kayla, but that Kayla doesn't share much about her family. She apparently has 6 adult children, but no longer has contact with any of them. [place] states she feels Kayla should not be living alone anymore. Told her Kayla would have to agree to any change in residence. CURRENT FUNCTIONAL STATUS:: Kayla is somnolent today and was actually transferred to ICU LOC this morning. She is unable to converse at all. History obtained from previous records. A friend Hilario Connelly came in today and stated he was person who found her at home and that he assists her with her house cleaning. He is NOT on the HIPPA form so explained to him that we could not give him information, but that he could visit her and get information from her when she is more alert. He reported the condition of her apt as filthy with feces all over the place. He is going to try to clean it up somewhat. ADVANCE DIRECTIVES:: Does not have document on file and is unable to discuss this. Has patient been provided with information about the portal?: No Did the patient sign up for the portal?: No CODE STATUS:: Full Code INSURANCE COVERAGE / FINANCIAL ISSUES:: BC/Other CURRENT HOME/COMMUNITY SERVICES/EQUIPMENT:: No current services or equipment. PRIMARY CARE PHYSICIAN:: Chidi Mccormack MD POTENTIAL DISCHARGE NEEDS:: d/c needs unclear at this time, but she may need SNF placement, which she had briefly over a month ago, but her insurance would only cover 6 days. CM with continue to assess for d/c needs as her condition allows. PATIENT/FAMILY EDUCATION NEEDS:: Review d/c instructions re meds and activity levels. Review Ask me Now questions. ANTICIPATED BARRIERS TO DISCHARGE:: patient willingness to consider other living options TRANSPORTATION:: TBD PLAN:: CM will continue assessment to determine most appropriate d/c plan for Kayla.
--- NOTE | 2018-11-18 10:12 | OT.INNT ---
Date of service: 11/18/18 Time of Service: 10:12 Occupational Therapy Notes 11/18/18 OT consult received and pts chart was reviewed. Pt is being transitioned to the ICU at this time. OT will hold on OT services at this time and will need new referral if MD feels that pt is appropriate for services. Jane Gomez, OTR/[facility]
[2018-11-18] MEDS: POTASSIUM CHLORIDE 20 MEQ/100 ML BAG 50 MEQ IVPB ×2 (10:41→12:58)
[2018-11-18 10:47] LABS: Sodium 128 mmol/L (136-145)
--- NOTE | 2018-11-18 10:59 | PHARADMIT ---
Addendum entered by Elijah Joseph III 11/21/18 10:41: Pharmacy Note Subjective Hospitalist remarked that if patients continues her current improvement ,she may be discharged to [facility] pending referral. Patient complains of foot pain, seen by today. He notes that she will need to follow up with an outpatient neurology consult. Objective VS-OK pain:10 (foot) Na-127 K+3.5 Mag-1.7 H&H-8.5/25.7 (down) Wgt-38.8 kg (BM today Assessment KCL PO bolus given Plan Awaiting CM referral to H&R. Sodium is up. Possible discharge later today. Addendum entered by Maryam Tolliver 11/20/18 14:21: Pharmacy Note Subjective Pain in left foot and right arm Objective VS ok, pain 02/20, CIWA zero, weight up 2.4kg overnight Na++ 122, K+ 4.3, Mag 1.3 C.Diff positive Antigen, negative toxin Assessment Mag 2gram IV x 2 runs in addition to MagOx 800mg po BID Lost IV access, retimed the second bag of Mag 2gram once new line started Normal saline was stopped yesterday, restarted today @ 100ml/hr No diarrhea or any stools recorded today, less frequent yesterday APAP and Tramadol for pain Lovenox for DVT prophylaxis Plan Transfer to /, follow Na++ and Mag Addendum entered by Bianca Herrera 11/19/18 12:20: Pharmacy Note Subjective Improving overall (more alert since oxazepam dc'd) Objective NA 125 (down from 128 on 11/18) Stool culture positive for lactoferrin Assessment Will transfer back to [place] from ICU Started PO vanco due to stool culture Continue PO fluconazole for fungal dermatitis Plan Continue to monitor sodium, loose stools, wound management Original Note: Admission Pharmacy Clinical Review HYPONATREMIA, DEHYDRATION,SKIN ULCES, FAILURE TO THRIVE Code Status Full Code Current Weight Wgt-40.9 kg Renally Cleared and Narrow Therapeutic Index Meds CrCl~ 48.28 mL/min Meds-OK QTc Value / Action Taken NONE CURRENT BP Control, Fever BP- 93/66 Tmax- 38.8C Electrolytes reviewed Na- 128 K+3.3 Mag- 2.3 DVT Prophylaxis Lovenox 40mg Opiate Usage / Scheduled Bowel Regimen Ordered No No Plt/SCr for Heparin / Enoxaparin Plts-105 SCr- 0.43 INR for Warfarin inr-1.0 H/H stable, WBC/Bands H&H- 9.5/27.4 WBC- 5.92 Antibiotic appropriateness Diflucan, Cultures and Sensitivities C-Diff ANTIGEN (+) toxin (-) Surgical ABX d/c within 24 hr NA DM control / Insulin Dosing BG-75 Heart Failure (Check EF%) (MERLENE's, B-Block, Diuretics) Norvasc, ASA, Lopressor, IV to PO Switch No Home Meds Reviewed Yes Home Meds Not Ordered Gabapentin, Macrobid, A&D Oint, Zinc Oxide Comments ETOH-114.4 on CIWA protocol
--- NOTE | 2018-11-18 11:09 | NUR.NOTE ---
Nursing Note: At approximately 1000 the LNAs reported that this patient did not respond to them as they washed her up for the day and repositioned her. They also reported that her oxygen saturations were not staying above 90%, dropping several times down as low as 80% while they worked with her. Patient was already on 2L oxygen. This RN found the patient to have snoring respirations with periods of apnea. Patient had been responsive to verbal stimuli and now needed a light sternal rub to semi-arouse her. Tiarra MUNIZ entered the room shortly after this nurse and conferred with Dr. Rodriguez at which time she was transferred into ICU room 219 via her bed. Report given to Leeann just prior to patient's arrival in ICU
--- NOTE | 2018-11-18 11:10 | PT.INTREAT ---
Date of service: 11/18/18 PT Notes Referral for physical therapy was received today by this provider to address impairments in strength, balance, and mobility level. Patient was sent to ICU for close monitoring and intensive management of symptoms. Physical therapy evaluation is deferred until another referral is received. Thank you very much for this referral. Kenia Saba PT, DPT, CLT [facility]
--- NOTE | 2018-11-18 13:34 | PGE_ITS ---
Date of Service Date of service: 11/18/18 Time of Service: 13:34 Assessment and Plan (1) Hyponatremia: Start date: 11/18/18 Start time: 13:50 Current visit: No Status: Chronic Improving. Last sodium was 128, continue to monitor. Acute on chronic hyponatremia from ETOH worsened from diarrhea and water loss. Slowly replace sodium with NS and recheck sodium level in couple hours (2) Alcohol use: Start date: 11/18/18 Start time: 13:50 Current visit: No Status: Acute Going through possible withdrawal, transferred to ICU for closer monitoring following episode of apenic respirations and barely able to arouse. She did have a dose of ativan around 12 am and oxzazepam last night. Oxzazepam held. (3) Wounds and injuries: Start date: 11/18/18 Start time: 13:53 Current visit: Yes Status: Acute Multiple wounds to bilateral knees, unstageable to right hip and lateral thigh, wound consult placed. With fungal dermatitis. (4) Folate deficiency: Start date: 11/18/18 Start time: 13:54 Current visit: No Status: Acute In setting of chronic anemia from alcohol continue folate, mulitivitamin and thiamine (5) Hypothyroidism: Start date: 11/18/18 Start time: 13:54 Current visit: No Status: Chronic TSH normal range continue current dose (6) DVT prophylaxis: Start date: 11/18/18 Start time: 13:54 Current visit: No Status: Acute Enoxaparin subcu (7) Failure to thrive: Start date: 11/18/18 Start time: 13:54 Current visit: No Status: Acute in setting of chronic alcohol drinker, malnourished, nutrition consult placed. (8) Tobacco abuse: Start date: 11/18/18 Start time: 13:54 Current visit: Yes Status: Acute Nicotine replacement offered (9) Diarrhea: Start date: 11/18/18 Start time: 13:54 Current visit: Yes Status: Acute Small amount of diarrhea this am. Stool cultures pending. Continue to monitor. (10) Lala infection: Start date: 11/18/18 Start time: 13:55 Current visit: Yes Status: Acute Severe infection to multiple parts of the body, IV fluconazole with clotrimazole/zinc/a/d compound ordered. Subjective Patient reports: other Interval history since last seen: Ms. Leon has a history of alcoholism, she was given oxazapem and ativan for withdrawal last night. However this am she was very sleepy and not easy to arouse. A sternal rub was used to wake her; she would open her eyes and fall right back to sleep. Her sats were in the upper 80's with 2 liters and she was having periods of apnea. She was also febrile with hypoxia overnight CXR was ordered to r/o Aspiration pneumonia. CXR revealed no acute process, urine was negative for infection. Her fever could be infectious from wounds vs. withdrawal. For this reason she was transferred to the ICU. Exam Const General: disheveled and frail appearing Nutritional Appearance: malnourished and underweight Orientation: alert, awake and confused HENKS Head: normal to inspection Face and sinus: normal facial exam Teeth and gingiva: poor dentition Eyes Pupils: PERRL Neck Lymphatic: no lymphadenopathy noted and no lymphedema noted Chest Chest: normal inspection of the chest Resp Effort & Inspection: normal respiratory effort Auscultation: clear to auscultation bilaterally Cardio Jugular venous pressure: no JVD Rate: regular rate Rhythm: regular rhythm Heart Sounds: S1 normal and S2 normal GI Inspection: normal to inspection Palpation: soft Auscultation: normal bowel sounds Back/Spine/Pelvis Back: no CVA tenderness Skin Lesions: lesion noted (to right side, radiating up under breast, left hip) Wounds: wounds noted Hair: brittle Other: multiple clusters of fungal dermatitis to inguinal, perineum, retroperitoneal. With streaks to right side of the chest and abdomen Neuro General: alert, awake, oriented and confused Cognition: abnormal cognition Speech: speech normal Extrem Right lower extremity: edema and foot Left lower extremity: edema and foot Objective Objective Clinical Data: Abnormal lab results 11/17/18 11/17/18 11/17/18 Range/Units 11:45 19:18 21:05 RBC (4.00-5.20) m/cumm Hgb (12.0-15.5) g/dL Hct (36.0-46.0) % MCV (80-95) fL MCH (27.0-33.0) pg Plt Count (130-400) x1000/uL Absolute Lymphocytes (1.2-3.4) k/cumm Sodium 125 L 124 L* (136-145) mmol/L Potassium (3.5-5.1) mmol/L Chloride (98-107) mmol/L Creatinine (0.55-1.02) mg/dL Calcium (8.5-10.1) mg/dL Magnesium 1.4 L (1.8-2.4) mg/dL AST (15-37) U/L Creatine Kinase (26-192) U/L Total Protein (6.4-8.2) g/dL Albumin (3.4-5.0) g/dL 11/18/18 11/18/18 11/18/18 Range/Units 07:00 07:00 07:00 RBC 2.68 L (4.00-5.20) m/cumm Hgb 9.5 L D (12.0-15.5) g/dL Hct 27.4 L (36.0-46.0) % MCV 102.2 H (80-95) fL MCH 35.4 H (27.0-33.0) pg Plt Count 105 L (130-400) x1000/uL Absolute Lymphocytes 0.21 L (1.2-3.4) k/cumm Sodium 126 L (136-145) mmol/L Potassium 3.3 L (3.5-5.1) mmol/L Chloride 94 L (98-107) mmol/L Creatinine 0.43 L (0.55-1.02) mg/dL Calcium 7.4 L (8.5-10.1) mg/dL Magnesium (1.8-2.4) mg/dL AST 64 H (15-37) U/L Creatine Kinase 474 H (26-192) U/L Total Protein 4.4 L (6.4-8.2) g/dL Albumin 1.9 L (3.4-5.0) g/dL 11/18/18 Range/Units 10:17 RBC (4.00-5.20) m/cumm Hgb (12.0-15.5) g/dL Hct (36.0-46.0) % MCV (80-95) fL MCH (27.0-33.0) pg Plt Count (130-400) x1000/uL Absolute Lymphocytes (1.2-3.4) k/cumm Sodium 128 L (136-145) mmol/L Potassium (3.5-5.1) mmol/L Chloride (98-107) mmol/L Creatinine (0.55-1.02) mg/dL Calcium (8.5-10.1) mg/dL Magnesium (1.8-2.4) mg/dL AST (15-37) U/L Creatine Kinase (26-192) U/L Total Protein (6.4-8.2) g/dL Albumin (3.4-5.0) g/dL Vital Signs Temperature 36.3 C L 11/18/18 10:07 Temperature Source Tympanic 11/18/18 10:00 Pulse 70 11/18/18 12:31 Pulse Rhythm Regular 11/18/18 09:00 Pulse 68 11/18/18 12:31 Respiratory Rate 15 11/18/18 12:31 Respiratory Effort Non-Labored 11/18/18 12:50 Respiratory Depth Shallow 11/18/18 12:50 Respiratory Pattern Normal 11/18/18 12:50 Blood Pressure 87/55 L 11/18/18 12:31 Blood Pressure Mean 63 11/18/18 12:31 Blood Pressure Position Sitting 11/18/18 10:07 Pulse Oximetry 100 11/18/18 12:46 Oxygen Delivery Method Room Air 11/18/18 12:50 Oxygen Flow Rate 0 11/18/18 12:50 Pain Level 0 11/18/18 12:50 Comment 11/17/18 23:57 Intake & Output 11/17/18 11/18/18 11/18/18 23:59 11:59 23:59 Intake Total 1583.75 / 1583.75 1011.667 / 1111.667 100 / 1111.667 Output Total 200 / 200 550 / 550 Balance 1383.75 / 1383.75 461.667 / 561.667 100 / 561.667 Weight 40.9 kg 40.9 kg Intake: IV 1363.75 / 1363.75 751.667 / 851.667 100 / 851.667 Oral 220 / 220 260 / 260 Output: Urine 200 / 200 500 / 500 Stool 50 / 50 Other: Urine Color Dark Sanna Yellow Yellow Urine Appearance Clear Clear Clear Comment added a urometer, emptied bag at this time Eric in place Stool Occult Blood Positive Stool Size Small Small Stool Characteristics Liquid Brown Brown Black Laboratory Results WBC 5.92 k/cumm (4.4-10.8) 11/18/18 07:00 RBC 2.68 m/cumm (4.00-5.20) L 11/18/18 07:00 Hgb 9.5 g/dL (12.0-15.5) L D 11/18/18 07:00 Hct 27.4 % (36.0-46.0) L 11/18/18 07:00 MCV 102.2 fL (80-95) H 11/18/18 07:00 MCH 35.4 pg (27.0-33.0) H 11/18/18 07:00 MCHC 34.7 g/dL (32.0-36.0) 11/18/18 07:00 RDW 12.6 % (11.7-14.6) 11/18/18 07:00 Plt Count 105 x1000/uL (130-400) L 11/18/18 07:00 MPV 10.2 fL (8.0-11.0) 11/18/18 07:00 Immature Gran % 0.3 11/18/18 07:00 Neutrophils % 91.9 11/18/18 07:00 Lymphocytes % 3.5 11/18/18 07:00 Monocytes % 3.4 11/18/18 07:00 Eosinophils % 0.7 11/18/18 07:00 Basophils % 0.2 11/18/18 07:00 Absolute Neutrophils 5.44 k/cumm (1.2-6.7) 11/18/18 07:00 Absolute Lymphocytes 0.21 k/cumm (1.2-3.4) L 11/18/18 07:00 Absolute Monocytes 0.20 k/cumm (0.11-0.7) 11/18/18 07:00 Absolute Eosinophils 0.04 k/cumm (0.0-0.7) 11/18/18 07:00 Absolute Basophils 0.01 k/cumm (0.0-0.2) 11/18/18 07:00 Differential Comment Rbc morph reviewed 11/18/18 07:00 RBC Morphology See below 11/18/18 07:00 Hypochromasia 1+ 11/18/18 07:00 Macrocytosis 1+ 11/18/18 07:00 PT 9.8 sec (9.3-11.0) 11/17/18 11:45 INR 1.0 (0.9-1.1) 11/17/18 11:45 APTT 29.4 sec (21.0-31.4) 11/17/18 11:45 Sodium 128 mmol/L (136-145) L 11/18/18 10:17 Potassium 3.3 mmol/L (3.5-5.1) L 11/18/18 07:00 Chloride 94 mmol/L (98-107) L 11/18/18 07:00 Carbon Dioxide 23.1 mmol/L (21.0-32.0) 11/18/18 07:00 Anion Gap 8.9 mmol/L (3-11) 11/18/18 07:00 BUN 7 mg/dL (7-18) 11/18/18 07:00 Creatinine 0.43 mg/dL (0.55-1.02) L 11/18/18 07:00 Estimated GFR/1.73 m2 >= 60.00 (mL/min/1.73m2) 11/18/18 07:00 Glucose 75 mg/dL (70-100) 11/18/18 07:00 Calcium 7.4 mg/dL (8.5-10.1) L 11/18/18 07:00 Magnesium 2.3 mg/dL (1.8-2.4) 11/18/18 07:00 Total Bilirubin 0.3 mg/dL (0.2-1.0) 11/18/18 07:00 Conjugated Bilirubin 0.10 mg/dL (0.00-0.20) 11/18/18 07:00 AST 64 U/L (15-37) H 11/18/18 07:00 ALT 31 U/L (12-78) 11/18/18 07:00 Alkaline Phosphatase 113 U/L (46-116) 11/18/18 07:00 Creatine Kinase 474 U/L (26-192) H 11/18/18 07:00 Total Protein 4.4 g/dL (6.4-8.2) L 11/18/18 07:00 Albumin 1.9 g/dL (3.4-5.0) L 11/18/18 07:00 TSH 3.16 uIU/mL (0.358-3.74) 11/17/18 11:45 Urine Color Yellow (Yellow) 11/17/18 12:25 Urine Clarity Clear (Clear) 11/17/18 12:25 Urine pH 6.0 (5-8) 11/17/18 12:25 Ur Specific Early Branch <= 1.005 (1.005-1.025) 11/17/18 12:25 Urine Protein Negative mg/dL (Negative) 11/17/18 12:25 Urine Ketones 15 mg/dL (Negative) H 11/17/18 12:25 Urine Blood Trace-lysed (Negative) H 11/17/18 12:25 Urine Nitrite Negative (Negative) 11/17/18 12:25 Urine Bilirubin Negative (Negative) 11/17/18 12:25 Urine Urobilinogen 0.2 EU/dL (Up TO 0.2) 11/17/18 12:25 Ur Leukocyte Esterase Negative (Negative) 11/17/18 12:25 Urine RBC 3-5 (0-2) H 11/17/18 12:25 Urine WBC Negative HPF (0-5) 11/17/18 12:25 Ur Epithelial Cells Negative HPF (Negative) 11/17/18 12:25 Urine Crystals Negative HPF (Negative) 11/17/18 12:25 Urine Bacteria Negative HPF (Negative) 11/17/18 12:25 Urine Casts Negative LPF (Negative) 11/17/18 12:25 Urine Mucus Negative (Negative) 11/17/18 12:25 Urine Other Few transitional (Negative) 11/17/18 12:25 Ur Culture Indicated? No 11/17/18 12:25 Urine Glucose Negative mg/dL (Negative) 11/17/18 12:25 Stl C.difficile Tox PCR Cancelled 11/17/18 12:47 Ethyl Alcohol 114.4 mg/dL (<3) 11/17/18 11:45 C.difficile Tox Source Cancelled 11/17/18 12:47
--- NOTE | 2018-11-18 14:37 | INITIAL_ITS ---
Care Management Initial Assess REASON FOR HOSPITALIZATION:: hyponatremia, dehydration, skin ulcers, failure to thrive PAST MEDICAL HISTORY/PAST SURGICAL HISTORY:: Medical: chewing tobacco dependence, hyperlipidemia, neuropathy, chronic L foot pain, essential hypertension, arterial occlusive disease, hypothyroidism, chronic alcohol abuse, H/O inability to care for self. Surgical: none PREVIOUS FUNCTIONAL STATUS/SOCIAL/FAMILY SUPPORTS:: Kayla lives alone in a first floor apt. in [place]. She has been failing for some time without successful community intervention. 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 She has not worked at her job at [employer] since May 05 2018. The only contact she has listed is a friend Nancy Mcgrath. CM spoke with Nancy who indicates she is closest person to Kayla, but that Kayla doesn't share much about her family. She apparently has 6 adult children, but no longer has contact with any of them. [place] states she feels Kayla should not be living alone anymore. Told her Kayla would have to agree to any change in residence. CURRENT FUNCTIONAL STATUS:: Kayla is somnolent today and was actually transferred to ICU LOC this morning. She is unable to converse at all. History obtained from previous records. A friend Hilario Connelly came in today and stated he was person who found her at home and that he assists her with her house cleaning. He is NOT on the HIPPA form so explained to him that we could not give him information, but that he could visit her and get information from her when she is more alert. He reported the condition of her apt as filthy with feces all over the place. He is going to try to clean it up somewhat. ADVANCE DIRECTIVES:: Does not have document on file and is unable to discuss this. Has patient been provided with information about the portal?: No Did the patient sign up for the portal?: No CODE STATUS:: Full Code INSURANCE COVERAGE / FINANCIAL ISSUES:: BC/Other CURRENT HOME/COMMUNITY SERVICES/EQUIPMENT:: No current services or equipment. PRIMARY CARE PHYSICIAN:: Chidi Mccormack MD POTENTIAL DISCHARGE NEEDS:: d/c needs unclear at this time, but she may need SNF placement, which she had briefly over a month ago, but her insurance would only cover 6 days. CM with continue to assess for d/c needs as her condition allows. PATIENT/FAMILY EDUCATION NEEDS:: Review d/c instructions re meds and activity levels. Review Ask me Now questions. ANTICIPATED BARRIERS TO DISCHARGE:: patient willingness to consider other living options TRANSPORTATION:: TBD PLAN:: CM will continue assessment to determine most appropriate d/c plan for Kayla.
--- NOTE | 2018-11-18 14:46 | CHAPLAIN ---
Kayla opened her eyes and spoke with me after talking directly to her and shaking her shoulder a bit. She said she was hungry and wanted hot soup, which was ordered for her. Kayla when she found out she was treated for symptoms of alcoholism and wanted to see the nurses' notes. Her nurse explained that even if she drinks two beers a day, as Kayla said she does when she gets of work at 6 a.m., she may have needed medicine to prevent symptoms of withdrawal. Kayla said a friend, Michael (?) is caring for her cat, Rachel Sharp. Kayla said her exhusband was a raging alcoholic and that she is not. She wanted to know when she'd been moved from Med/Surg and what medicines she'd been given. Nursing answered those questions for her. She talked some more about her cat, and other cats she's owned. I will visit her again tomorrow.
[2018-11-18] MEDS: Bupivacaine 0.5% Pres-Free 10 ML VIAL IT (18:36)
--- NOTE | 2018-11-18 18:47 | W.PODCONSULT ---
Date of service: 11/18/18 Time of Service: 18:47 History of Present Illness Chief Complaint: Left foot pain Narrative: Kayla, a 58-year-old white female who looks much older than her stated age, is seen in the ICU with complaints of left forefoot pain. She states the pain goes from her third and fourth toe up to her hip. She indicates that if I can get the pain level down to a 10 she would be happy. I did see Kayla in the hospital on her last admission and she had one follow-up appointment in the office. She has had 2 cortisone injections for potential neuroma involving the third intermetatarsal space of the left foot. She did have some initial relief of symptoms only to have recurrence PFSH Medical History Continuous chewing tobacco dependence (Inactive 01/22/12) Hyperlipidemia (Chronic 08/21/12) Neuropathy (Chronic 12/07/16) Hyperlipidemia (Chronic 08/21/12) Foot pain, left (Chronic 12/04/16) Essential hypertension (Chronic 01/22/12) Arterial occlusive disease (Chronic 12/04/16) Hypothyroidism (Chronic) Social History Smoking/Tobacco Use Status: Current every day Alcohol Intake: current Alcohol Intake frequency: 0-2 drinks per day Alcohol type: beer and hard liquor Drug use: Never Substance use type: does not use Housing: apartment current occupation: not working at this time Pets and animals: Yes Pets and animals: cat(s) What type of physical activity do you participate in: none Duration: 15-30 minutes/day Frequency: 5-6 times per week Seatbelt use: always Drive intox or ride w/intox regional truck driver: No Working smoke detector in home: Yes Fire extinguisher in home: Yes Carbon monox detector in home: Yes Do you feel safe at home: Yes Do you feel safe in your relationship?: Yes Exam Narrative Exam Narrative: Vasculature DP, PT pulses are nonpalpable manually but audible with Doppler, capillary return is under 5 seconds to all toes bilaterally. Dependent rubor noted. Feet are cool to the touch. No peripheral edema noted. Calves soft to palpation. Ischemia is not appreciated at this time. Muscle groups of 5 out of 5 bilaterally. Skeletal exam appears grossly benign. No gross deformities with joint inflammation noted. Neurologically toes are downgoing bilaterally tarsal tunnel is negative on percussion pain is significant with palpation third intermetatarsal space left consistent with neuroma. Sensory is otherwise grossly unremarkable Impression: Neuroma third intermetatarsal space left foot Peripheral vascular disease Atypical neuropathy Plan a diagnostic nerve injection of the left third intermetatarsal space is right recommended. If she obtains relief of symptoms overnight we have proven where the source of her pain is we can focus on that and hopefully at some point when she is medically stable intervene to fix this issue for her. She understands this and agrees to proceed. Procedure note: The left third intermetatarsal space was injected under aseptic technique with 5 cc 0.5% bupivacaine plain. She tolerated the injection well. Results Last Vital Signs Temp 36.3 C L 11/18/18 16:15 Pulse 150 H 11/18/18 16:17 Resp 22 11/18/18 16:20 BP 95/71 L 11/18/18 15:01 Pulse Ox 93 L 11/18/18 15:15 Labs : 11/20/18 06:10 11/20/18 12:14 Laboratory Results - last 24 hr 11/17/18 11/17/18 11/17/18 12:47 19:18 21:05 WBC RBC Hgb Hct MCV MCH MCHC RDW Plt Count MPV Immature Gran % Neutrophils % Lymphocytes % Monocytes % Eosinophils % Basophils % Absolute Neutrophils Absolute Lymphocytes Absolute Monocytes Absolute Eosinophils Absolute Basophils Differential Comment RBC Morphology Hypochromasia Macrocytosis Sodium 125 L 124 L* Potassium Chloride Carbon Dioxide Anion Gap BUN Creatinine Estimated GFR/1.73 m2 Glucose Calcium Magnesium Total Bilirubin Conjugated Bilirubin AST ALT Alkaline Phosphatase Creatine Kinase Total Protein Albumin Stl C.difficile Tox PCR Cancelled C.difficile Tox Source Cancelled 11/18/18 11/18/18 11/18/18 07:00 07:00 07:00 WBC 5.92 RBC 2.68 L Hgb 9.5 L D Hct 27.4 L MCV 102.2 H MCH 35.4 H MCHC 34.7 RDW 12.6 Plt Count 105 L MPV 10.2 Immature Gran % 0.3 Neutrophils % 91.9 Lymphocytes % 3.5 Monocytes % 3.4 Eosinophils % 0.7 Basophils % 0.2 Absolute Neutrophils 5.44 Absolute Lymphocytes 0.21 L Absolute Monocytes 0.20 Absolute Eosinophils 0.04 Absolute Basophils 0.01 Differential Comment Rbc morph reviewed RBC Morphology See below Hypochromasia 1+ Macrocytosis 1+ Sodium 126 L Potassium 3.3 L Chloride 94 L Carbon Dioxide 23.1 Anion Gap 8.9 BUN 7 Creatinine 0.43 L Estimated GFR/1.73 m2 >= 60.00 Glucose 75 Calcium 7.4 L Magnesium 2.3 Total Bilirubin 0.3 Conjugated Bilirubin 0.10 AST 64 H ALT 31 Alkaline Phosphatase 113 Creatine Kinase 474 H Total Protein 4.4 L Albumin 1.9 L Stl C.difficile Tox PCR C.difficile Tox Source 11/18/18 10:17 WBC RBC Hgb Hct MCV MCH MCHC RDW Plt Count MPV Immature Gran % Neutrophils % Lymphocytes % Monocytes % Eosinophils % Basophils % Absolute Neutrophils Absolute Lymphocytes Absolute Monocytes Absolute Eosinophils Absolute Basophils Differential Comment RBC Morphology Hypochromasia Macrocytosis Sodium 128 L Potassium Chloride Carbon Dioxide Anion Gap BUN Creatinine Estimated GFR/1.73 m2 Glucose Calcium Magnesium Total Bilirubin Conjugated Bilirubin AST ALT Alkaline Phosphatase Creatine Kinase Total Protein Albumin Stl C.difficile Tox PCR C.difficile Tox Source
[2018-11-18 19:04] LABS: Specimen Description Feces
--- NOTE | 2018-11-18 19:39 | NUR.NOTE ---
The patient reports that she gets very sleepy when taking Gabapentin. She cannot take the drug before going to work. Nursing Note:
--- NOTE | 2018-11-18 19:40 | NUR.NOTE ---
Dr. Sow came to the unit and examined the patient's foot. The patient was very adamant that she wanted an amputation or some treatment. Dr. Sow explained to the patient that he needed to determine more clearly what was happening and he wanted to try some marcaine. The patient agreed and he injected 5ml of marcaine into her foot medial to the 1st and 2nd digit. The patient tolerated the procedure well. Nursing Note:
[2018-11-18] MEDS: Metoprolol 50 MG TAB PO (19:59)
[2018-11-18] MEDS: Magnesium Oxide 400 MG TAB 800 MG PO (19:59)
[2018-11-18] MEDS: Calcium Carbonate 1.25 GM TAB PO (19:59)
[2018-11-19] VITALS (44 sets, daily range): BP systolic 94–108; BP diastolic 54–74; PULSE 79–114; RESP 16–32; TEMP 36.7–37.6; O2SAT 84–98
[2018-11-19] MEDS: traMADol 50 MG TAB PO ×2 (02:30→15:42)
[2018-11-19] MEDS: Normal Saline 1,000 ML 100 ML IV (04:18)
[2018-11-19] MEDS: Levothyroxine 100 MCG TAB PO (06:05)
[2018-11-19 07:30] LABS: Abs Immature Grans 0.01 k/cumm (0.0-0.09); Absolute Basophil Count 0.01 k/cumm (0.0-0.2); Absolute Eosinophil Count 0.12 k/cumm (0.0-0.7); Absolute Lymphocyte Count 0.73 k/cumm (1.2-3.4); Absolute Monocyte Count 0.42 k/cumm (0.11-0.7); Basophils % 0.2; HCT 25.5 % (36.0-46.0); HGB 8.7 g/dL (12.0-15.5); Immature Grans % 0.2; Mean Corp. HGB Concentration 34.1 g/dL (32.0-36.0); Mean Corpuscular Hemoglobin 35.2 pg (27.0-33.0); Mean Corpuscular Volume 103.2 fL (80-95); Mean Platelet Volume 10.7 fL (8.0-11.0); Monocytes % 6.9; Neutrophils % 78.7; RBC 2.47 m/cumm (4.00-5.20); RBC Distribution Width 12.8 % (11.7-14.6); White Blood Cell Count 6.09 k/cumm (4.4-10.8)
[2018-11-19 07:47] LABS: Anion Gap 6.8 mmol/L (3-11); BUN 8 mg/dL (7-18); CO2 24.2 mmol/L (21.0-32.0); CREATININE 0.41 mg/dL (0.55-1.02); Calcium 7.4 mg/dL (8.5-10.1); Chloride 94 mmol/L (98-107); Glucose 91 mg/dL (70-100); Potassium 3.4 mmol/L (3.5-5.1); Sodium 125 mmol/L (136-145)
[2018-11-19 08:06] LABS: Anisocytosis 1+; Diff Comment RBC Morph Reviewed; Platelet Count 98 x1000/uL (130-400); Polychromasia Present
[2018-11-19 08:08] LABS: Macrocytosis 1+
[2018-11-19 08:55] LABS: Result Positive
[2018-11-19] MEDS: Multivitamin TAB 1 TAB PO (09:06)
[2018-11-19] MEDS: Fluconazole 100 MG TAB PO (09:06)
[2018-11-19] MEDS: Cyanocobalamin 500 MCG TAB PO (09:06)
[2018-11-19] MEDS: amLODIPine 5 MG TAB PO (09:06)
[2018-11-19] MEDS: Calcium Carbonate 1.25 GM TAB PO ×2 (09:06→20:00)
[2018-11-19] MEDS: Magnesium Oxide 400 MG TAB 800 MG PO ×2 (09:06→20:59)
[2018-11-19] MEDS: Thiamine 100 MG TAB PO (09:06)
[2018-11-19] MEDS: Metoprolol 50 MG TAB PO ×2 (09:07→20:00)
[2018-11-19] MEDS: Folic Acid 1 MG TAB PO (09:07)
[2018-11-19 09:09] LABS: ALT 35 U/L (12-78); AST 43 U/L (15-37); Albumin 1.7 g/dL (3.4-5.0); Alkaline Phosphatase 113 U/L (46-116); Bilirubin, Direct 0.06 mg/dL (0.00-0.20); Bilirubin, Total 0.2 mg/dL (0.2-1.0); Creatine Kinase 258 U/L (26-192); Magnesium 1.4 mg/dL (1.8-2.4); Total Protein 4.7 g/dL (6.4-8.2)
[2018-11-19] MEDS: Potassium Chloride 20 MEQ TABCR 40 MEQ PO (09:09)
--- NOTE | 2018-11-19 10:10 | PT.INIE ---
Date of service: 11/19/18 Time of Service: 09:12 PT Notes Inpatient Physical Therapy Evaluation Date: 11/19/2018 Referring Doctor: Prashant Rodriguez MD PT Orders: PT CONSULT: Generalized weakness, hypothyroidism, hyponatremia, falling at home Precautions: Fall. Standard. Patient Profile/Admitting Diagnosis: Patient is a 58-year-old female with past medical history significant for arterial occlusive disease, neuropathy, foot pain, history of ETOH abuse, and hypothyroidism who presented to the ED via EMS on 11/17/2018 with chief complaints of diarrhea, weakness, dehydration, failure to thrive. Patient was diagnosed with Alcohol withrawal, multiple wounds in B UE/LE, folate deficiency, and tobacco abuse. referral for physical therapy was made to address impairments in strength, balance, and mobility level. PMHX: Medical History Continuous chewing tobacco dependence (Inactive 01/22/12) Hyperlipidemia (Chronic 08/21/12) Neuropathy (Chronic 12/07/16) Hyperlipidemia (Chronic 08/21/12) Foot pain, left (Chronic 12/04/16) Essential hypertension (Chronic 01/22/12) Arterial occlusive disease (Chronic 12/04/16) Hypothyroidism (Chronic) Social History/Home Situation: Patient lives at alone in an apartment in [place], [place]. She states she is independent with all aspects of ADLs without assistive ambulatory devices nor adaptive equipment. She reports she has worked for a long time at [employer], third shift. She does not drive. She further states that she is currently on medical leave back home and resume work. Equipment Owned/DME: None. Subjective: Patient agreeable to a PT consult. She denies any headaches and dizziness. Does report generalized body weakness and achiness, pain on buttocks with movement, and lethargy wanting to go to sleep. Objective: General Observation: Multiple wounds to bilateral hands and forearms as well as on bilateral knees. Telemetry monitoring in place. Decubiti seen on sacral area seen. Dorsum of R hand erythematous. Mental Status: Alert and oriented as to person and place Pain: Patient reports moderate pain on the right forearm from IV insertion site Vital Signs: HR ranged from 109-120 bpm throughout PT session ROM: Right Upper Extremity: Shoulder Flexion 0-80. Shoulder abduction 0-60. Elbow flexion WFL. Wrist flexion WFL. Functional opening and closing of hand WFL. Left Upper Extremity: Shoulder Flexion WFL. Shoulder abduction WFL. Elbow flexion WFL. Wrist flexion WFL. Functional opening and closing of hand WFL. Right Lower Extremity: Hip flexion WFL. Hip abduction WFL. Knee flexion WFL. Ankle dorsiflexion WFL. Ankle plantarflexion WFL. Left Lower Extremity: Hip flexion WFL. Hip abduction WFL. Knee flexion WFL. Ankle dorsiflexion WFL. Ankle plantarflexion WFL. STRENGTH: Right Upper Extremity: Shoulder flexors 3-/5. Shoulder abductors 3-/5. Elbow flexors 4/5. Elbow extensors 4/5. Photovoltaic Solar Cell Designer strong. Left Upper Extremity: Shoulder flexors 4/5. Shoulder abductors 4/5. Elbow flexors 4/5. Elbow extensors 4/5. Photovoltaic Solar Cell Designer strong. Right Lower Extremity:Hip flexors 3+/5. Hip abductors 3+/5. Knee flexors 3+/5. Knee extensors 4-/5. Ankle dorsiflexors 4/5. Ankle plantarflexors 4/5. Left Lower Extremity: Hip flexors 3+/5. Hip abductors 3+/5. Patient was able to tolerate minimal resistance provided to hip and knee extension in supine. Knee flexors 3+/5. Knee extensors 4-/5. Ankle dorsiflexors 4/5. Ankle plantarflexors 4/5. Sensation: Intact as to pain and pressure to B LE. BED MOBILITY LEVELS/TRANSFERS Rolling minimal assist of 2 Supine to sit minimal assist of 2 Sit to supine minimal asist of 2 Sit to stand NT Stand to sit NT Bed to chair NT Chair to bed NT Gait: NT. Patient states that she is too exhausted and sleepy to tolerate any standing activities right now. She did agree to trying to do something later in the afternoon after she gets to rest. Balance: Static Sitting: Fair Dynamic Sitting: Fair Static Standing: NT Dynamic Standing: NT Special Tests: Mobility Limitations Standardized Measure [facility] AM-PAC 6 clicks Basic Mobility Inpatient Short Form: Raw Score: 10 CMS Score: 77% deficit Informed Consent/Education: Patient instructed in purpose of PT consult and plan of care. Assessment: Patient is a 58 year old female referred to physical therapy services with the diagnosis of hyponatremia, generalized weakness, left foot pain, buttock pain.. Patient presents with clinical signs and symptoms consistent with current/admitting diagnoses that have resulted to mobility limitations, gait instability, generalized weakness, and impairment of motor control as demonstrated by the following impairment level findings: 1. Decreased strength to B LE major muscle groups 2. Impaired sitting/standing balance 3. Impaired activity tolerance 4. Multiple pressure areas on sacral and heels, multiple wounds on B hands and B knees Impairments are contributing to the following functional limitations: 1. Dependent bed mobility skills 2. Increased dependence with transfers 3. Inability to safely ambulate without assistive device and physical assistance 4. Increase completion time for mobility ADL performance 5. Increased fall risk 6. Inability to negotiate steps alone safely Patient is assessed Moderate 58318 complexity based on the following: History: 58-year-old female previously independent with all aspects of ADLs without use of any assistive ambulatory devices nor adaptive equipment who was admitted to the ED for generalized weakness, hyponatremia, failure to thrive, left foot pain and buttock pain Examination: Underlying impairments and functional limitations as noted above Presentation: Evolving Decision Makin moderate complexity Goals: Goals X1 week 1. Supine-Sit independent 2. Sit-Supine independent 3. Sit-Stand independent 4. Stand-Sit independent 5. Bed-Chair independent 6. Chair-Bed independent 7. Independent gait on level surface with use of least restrictive device for at least 300 feet without report of pain nor dyspnea 8. Independent stair negotiation while holding onto bilateral rails for at least 10 steps without report of pain nor dyspnea 9. Independent with home exercise program 10. Good static and dynamic standing balance/tolerance Plan of Care/Treatment Plan: 1-2x/day, 7 days/week x 1 week. Plan of care has been reviewed with the [facility] providing the service under Physical Therapy direction. Initiate Physical Therapy intervention for strengthening, bed mobility, transfers, gait, stairs, balance training, use of assistive device. DISCHARGE RECOMMENDATIONS: Patient will benefit from group home facility placement or home health physical therapy in order to maximize functional mobility level and facilitate return to work. Patient benefit from a front wheeled walker to maximize mobility and reduce fall risk TREATMENT CODE/TIME: 20316 37 minutes beginning at 9:12 AM. Thank you for this referral. Kenia Saba, PT, DPT, CLT [facility]
--- NOTE | 2018-11-19 10:23 | W.NUTCONSULT ---
Date of service: 11/19/18 Time of Service: 10:23 Nutritional Consult ASSESSMENT: Appreciate nutrition consult for Kyala Leon who is 58 years old hospitalized with hyponatremia and Failure to Thrive as well as other co-morbidities. BMI 15.5 Attempted to visit yesterday and today without success. 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 She is eating bites of food off her tray and drinks whole milk. NUTRITIONAL DIAGNOSIS: Malnutrition as a result of inadequate caloric intake less than 75% of estimated energy requirement over time with Estimated energy expenditure 1200 calories and protein needs of 40grams daily based on her intake of food here and in the context of alcohol consumption. BMI indicates underweight status INTERVENTION: Will offer her foods she will take that are nutrient dense given the few bites she is currently willing to take. Will attempt a small snack between meals of peanut butter crackers, cheese and crackers, 1/2 of CIB shake. MONITORING AND EVALUATION: Will follow food intake aimed at 1200 calories to maintain current weight Will visit her when she has availability. Time Spent in Nutritional Counseling and Treatment: 0
--- NOTE | 2018-11-19 10:25 | IN_ITS ---
Date of service: 11/19/18 Time of Service: 09:12 PT Notes Inpatient Physical Therapy Evaluation Date: 11/19/2018 Referring Doctor: Prashant Rodriguez MD PT Orders: PT CONSULT: Generalized weakness, hypothyroidism, hyponatremia, falling at home Precautions: Fall. Standard. Patient Profile/Admitting Diagnosis: Patient is a 58-year-old female with past medical history significant for arterial occlusive disease, neuropathy, foot pain, history of ETOH abuse, and hypothyroidism who presented to the ED via EMS on 11/17/2018 with chief complaints of diarrhea, weakness, dehydration, failure to thrive. Patient was diagnosed with Alcohol withrawal, multiple wounds in B UE/LE, folate deficiency, and tobacco abuse. referral for physical therapy was made to address impairments in strength, balance, and mobility level. PMHX: Medical History Continuous chewing tobacco dependence (Inactive 01/22/12) Hyperlipidemia (Chronic 08/21/12) Neuropathy (Chronic 12/07/16) Hyperlipidemia (Chronic 08/21/12) Foot pain, left (Chronic 12/04/16) Essential hypertension (Chronic 01/22/12) Arterial occlusive disease (Chronic 12/04/16) Hypothyroidism (Chronic) Social History/Home Situation: Patient lives at alone in an apartment in [place], [place]. She states she is independent with all aspects of ADLs without assistive ambulatory devices nor adaptive equipment. She reports she has worked for a long time at [employer], third shift. She does not drive. She further states that she is currently on medical leave back home and resume work. Equipment Owned/DME: None. Subjective: Patient agreeable to a PT consult. She denies any headaches and dizziness. Does report generalized body weakness and achiness, pain on buttocks with movement, and lethargy wanting to go to sleep. Objective: General Observation: Multiple wounds to bilateral hands and forearms as well as on bilateral knees. Telemetry monitoring in place. Decubiti seen on sacral area seen. Dorsum of R hand erythematous. Mental Status: Alert and oriented as to person and place Pain: Patient reports moderate pain on the right forearm from IV insertion site Vital Signs: HR ranged from 109-120 bpm throughout PT session ROM: Right Upper Extremity: Shoulder Flexion 0-80. Shoulder abduction 0-60. Elbow flexion WFL. Wrist flexion WFL. Functional opening and closing of hand WFL. Left Upper Extremity: Shoulder Flexion WFL. Shoulder abduction WFL. Elbow flexion WFL. Wrist flexion WFL. Functional opening and closing of hand WFL. Right Lower Extremity: Hip flexion WFL. Hip abduction WFL. Knee flexion WFL. Ankle dorsiflexion WFL. Ankle plantarflexion WFL. Left Lower Extremity: Hip flexion WFL. Hip abduction WFL. Knee flexion WFL. Ankle dorsiflexion WFL. Ankle plantarflexion WFL. STRENGTH: Right Upper Extremity: Shoulder flexors 3-/5. Shoulder abductors 3-/5. Elbow f lexors 4/5. Elbow extensors 4/5. News Editor strong. Left Upper Extremity: Shoulder flexors 4/5. Shoulder abductors 4/5. Elbow flexors 4/5. Elbow extensors 4/5. News Editor strong. Right Lower Extremity:Hip flexors 3+/5. Hip abductors 3+/5. Knee flexors 3+/5. Knee extensors 4-/5. Ankle dorsiflexors 4/5. Ankle plantarflexors 4/5. Left Lower Extremity: Hip flexors 3+/5. Hip abductors 3+/5. Patient was able to tolerate minimal resistance provided to hip and knee extension in supine. Knee flexors 3+/5. Knee extensors 4-/5. Ankle dorsiflexors 4/5. Ankle plantarflexors 4/5. Sensation: Intact as to pain and pressure to B LE. BED MOBILITY LEVELS/TRANSFERS Rolling minimal assist of 2 Supine to sit minimal assist of 2 Sit to supine minimal asist of 2 Sit to stand NT Stand to sit NT Bed to chair NT Chair to bed NT Gait: NT. Patient states that she is too exhausted and sleepy to tolerate any standing activities right now. She did agree to trying to do something later in the afternoon after she gets to rest. Balance: Static Sitting: Fair Dynamic Sitting: Fair Static Standing: NT Dynamic Standing: NT Special Tests: Mobility Limitations Standardized Measure [facility] 6 clicks Basic Mobility Inpatient Short Form: Raw Score: 10 CMS Score: 77% deficit Informed Consent/Education: Patient instructed in purpose of PT consult and plan of care. Assessment: Patient is a 58 year old female referred to physical therapy services with the diagnosis of hyponatremia, generalized weakness, left foot pain, buttock pain.. Patient presents with clinical signs and symptoms consistent with current/admitting diagnoses that have resulted to mobility limitations, gait instability, generalized weakness, and impairment of motor control as demonstrated by the following impairment level findings: 1. Decreased strength to B LE major muscle groups 2. Impaired sitting/standing balance 3. Impaired activity tolerance 4. Multiple pressure areas on sacral and heels, multiple wounds on B hands and B knees Impairments are contributing to the following functional limitations: 1. Dependent bed mobility skills 2. Increased dependence with transfers 3. Inability to safely ambulate without assistive device and physical assistance 4. Increase completion time for mobility ADL performance 5. Increased fall risk 6. Inability to negotiate steps alone safely Patient is assessed Moderate 33555 complexity based on the following: History: 58-year-old female previously independent with all aspects of ADLs without use of any assistive ambulatory devices nor adaptive equipment who was admitted to the ED for generalized weakness, hyponatremia, failure to thrive, left foot pain and buttock pain Examination: Underlying impairments and functional limitations as noted above Presentation: Evolving Decision Makin moderate complexity Goals: Goals X1 week 1. Supine-Sit independent 2. Sit-Supine independent 3. Sit-Stand independent 4. Stand-Sit independent 5. Bed-Chair independent 6. Chair-Bed independent 7. Independent gait on level surface with use of least restrictive device for at least 300 feet without report of pain nor dyspnea 8. Independent stair negotiation while holding onto bilateral rails for at least 10 steps without report of pain nor dyspnea 9. Independent with home exercise program 10. Good static and dynamic standing balance/tolerance Plan of Care/Treatment Plan: 1-2x/day, 7 days/week x 1 week. Plan of care has been reviewed with the [facility] providing the service under Physical Therapy direction. Initiate Physical Therapy intervention for strengthening, bed mobility, transfers, gait, stairs, balance training, use of assistive device. DISCHARGE RECOMMENDATIONS: Patient will benefit from care home facility placement or home health physical therapy in order to maximize functional mobility level and facilitate return to work. Patient benefit from a front wheeled walker to maximize mobility and reduce fall risk TREATMENT CODE/TIME: 50721 37 minutes beginning at 9:12 AM. Thank you for this referral. Kenia Saba, PT, DPT, CLT [facility]
--- NOTE | 2018-11-19 10:46 | PDOC.CMPRO ---
Care Management Progress Note S/O-Met with Kayla in ICU today. She is now awake and able to converse. Explained to her how she was found by her friend Hilario in her apt, on the floor covered in her own feces. She states she was not on floor, then said she was. Attempted discussion re her substance uses and how it affects her health. She states she is hardly drinking anything at all and all the empty cans at my apartment have been there for months since I can't get to the recycle center to turn them in. She recognizes she is very weak and may need rehab again. She is receptive to going to [facility] until she is strong enough to go home. She wants referral to [facility] which was done. A-58 yo woman admitted with hyponatremia, dehydration, skin ulcers and failure to thrive. P-Refer to [facility] for rehab services. CM will continue to coordinate plans with patient.
[2018-11-19] MEDS: Normal Saline 1,000 ML 125 ML IV (13:26)
[2018-11-19] MEDS: Vancomycin 125 MG CAP PO (13:27)
[2018-11-19 14:09] LABS: Sodium 124 mmol/L (136-145)
--- NOTE | 2018-11-19 14:26 | PT.INTREAT ---
Date of service: 11/19/18 Time of Service: 14:27 PT Notes Inpatient Physical Therapy Treatment Note [facility] Date: 11/19/2018 PRECAUTIONS: Fall, enteric precautions SUBJECTIVE: Kayla states that she is feeling really upset this afternoon, she reports that she would like to go outside but she is not allowed to do so at this time. OBJECTIVE: PAIN: Patient complained of left foot pain with weight bearing and right upper arm pain with use of FWW BED MOBILITY/TRANSFERS Supine-sit: Min A?SBA with HOB at 50 degrees Sit-stand: CGA Stand-sit: CGA Bed?chair: CGA GAIT Assistive Device: FWW Weight bearing: Full Assist: CGA Distance: 5 steps Deviation: Increased fatigue Stood at EOB x2 minutes with SBA and FWW support ASSESSMENT: Patient tolerated session with complaints of increased fatigue with activity as well as with complaints of pain in left foot with a weight bearing and in right upper arm with use of FWW. Patient was able to tolerate the addition of short distance gait training with FWW support and CGA. Patient would benefit from continued gait and transfer training as well as general strengthening for improved mobility and improved activity tolerance. PLAN: Continue with PTs POC TREATMENT CODE/TIME: 30 minutes; 35466 x2
--- NOTE | 2018-11-19 14:31 | PTTR_ITS ---
Date of service: 11/19/18 Time of Service: 14:27 PT Notes Inpatient Physical Therapy Treatment Note [facility] Date: 11/19/2018 PRECAUTIONS: Fall, enteric precautions SUBJECTIVE: Kayla states that she is feeling really upset this afternoon, she reports that she would like to go outside but she is not allowed to do so at this time. OBJECTIVE: PAIN: Patient complained of left foot pain with weight bearing and right upper arm pain with use of FWW BED MOBILITY/TRANSFERS Supine-sit: Min A?SBA with HOB at 50 degrees Sit-stand: CGA Stand-sit: CGA Bed?chair: CGA GAIT Assistive Device: FWW Weight bearing: Full Assist: CGA Distance: 5 steps Deviation: Increased fatigue Stood at EOB x2 minutes with SBA and FWW support ASSESSMENT: Patient tolerated session with complaints of increased fatigue with activity as well as with complaints of pain in left foot with a weight bearing and in right upper arm with use of FWW. Patient was able to tolerate the addit ion of short distance gait training with FWW support and CGA. Patient would benefit from continued gait and transfer training as well as general strengthening for improved mobility and improved activity tolerance. PLAN: Continue with PTs POC TREATMENT CODE/TIME: 30 minutes; 06167 x2
[2018-11-19] MEDS: Potassium Chloride 20 MEQ TABCR PO (15:42)
--- NOTE | 2018-11-19 16:51 | W.PM.PROGNOT ---
Date of Service Date of service: 11/19/18 Time of Service: 16:52 Assessment and Plan (1) Hyponatremia: Current visit: No Status: Chronic Acute on chronic hyponatremia possibly related to pulmonary disease vs ETOH worsened from diarrhea and water loss. Sodium down slightly today. IV fluids discontinued. Reassess sodium in the morning. (2) Alcohol use: Current visit: No Status: Acute Scoring 2 and 6 today on CIWA. Oxazepam discontinued. Continue PRN ativan per CIWA protocol. Continue to replace folate, thiamine and multivitamin. (3) Wounds and injuries: Current visit: Yes Status: Acute Multiple wounds to bilateral knees, unstageable to right hip and lateral thigh, wound consult placed. With fungal dermatitis. Continue to treat fungal dermatitis. (4) Folate deficiency: Current visit: No Status: Acute Continue folate supplementation. (5) Hypothyroidism: Current visit: No Status: Chronic TSH normal range continue current dose. (6) Failure to thrive: Current visit: No Status: Acute Appears to be failing at home in the setting of ongoing ETOH abuse. Nutrition consulted. Will likely need placement when ready for discharge. (7) Tobacco abuse: Current visit: Yes Status: Acute Declines nicotine replacement. (8) Diarrhea: Current visit: Yes Status: Acute C-diff antigen positive, toxin negative, PCR pending. Nursing reports that the diarrhea is watery and yellow and concerned for C-diff. She was started on PO vancomycin pending PCR. (9) Lala infection: Current visit: Yes Status: Acute Severe infection to multiple parts of the body. Continue IV fluconazole with clotrimazole/zinc/a/d compound. (10) DVT prophylaxis: Current visit: No Status: Acute Lovenox on hold in the setting of heme-positive stools. (11) Discharge planning issues: Current visit: No Status: Acute She is a full code. She does not appear to be effectively caring for herself at home. She may need placement at rehab prior to returning home. This case was discussed with Dr. Rodriguez who is in agreement. Subjective Interval history since last seen: Kayla reports feeling better today, she was moved to the ICU yesterday when she was found to be very sleepy and difficult to awaken after taking oxazepam and ativan for alcohol withdrawal. The oxazepam was discontinued and she has had no further episodes. She continues to report diarrhea, she believes she had one episode of diarrhea today, she reports a decreased appetite, denies abdominal pain, nausea or vomiting. She continues to have a dry, nonproductive cough, she states it is due to allergies. She denies shortness of breath or wheezing. She is working with physical therapy, she reports that she is gaining strength. She is a smoker, she declines nicotine replacement. Exam Narrative Exam Narrative: General: 58 year old thin, frail appearing female, appears older than stated age, she is awake and alert, sitting up in bed, answers questions appropriately. HEENT: normocephalic, atraumatic. PERRLA, EOMI, mucous membranes moist. Neck: supple, no JVD. Cardiovascular: Heart has regular rate and rhythm, no murmur appreciated. Respiratory: Respirations even and unlabored, lung sounds clear bilaterally, no wheezing or rhonchi. Gastrointestinal: Normoactive bowel sounds, abdomen thin, soft, nontender on palpation, no masses appreciated. Extremities: No clubbing, cyanosis or edema. Bilateral calves without erythema, swelling, tenderness. Pedal pulses palpable bilaterally. Skin: remington-area with confluent erythema- appears fungal. Unable to assess buttocks at this time. Objective Objective Clinical Data: Abnormal lab results 11/17/18 11/19/18 11/19/18 Range/Units 11:45 06:15 06:15 RBC (4.00-5.20) m/cumm Hgb (12.0-15.5) g/dL Hct (36.0-46.0) % MCV (80-95) fL MCH (27.0-33.0) pg Plt Count (130-400) x1000/uL Absolute Lymphocytes (1.2-3.4) k/cumm Sodium 125 L (136-145) mmol/L Potassium 3.4 L (3.5-5.1) mmol/L Chloride 94 L (98-107) mmol/L Creatinine 0.41 L (0.55-1.02) mg/dL Calcium 7.4 L (8.5-10.1) mg/dL Magnesium 1.4 L (1.8-2.4) mg/dL AST 43 H (15-37) U/L Creatine Kinase 258 H (26-192) U/L Total Protein 4.7 L (6.4-8.2) g/dL Albumin 1.7 L (3.4-5.0) g/dL Stl C.difficile Tox PCR Positive A 11/19/18 11/19/18 Range/Units 06:15 13:40 RBC 2.47 L (4.00-5.20) m/cumm Hgb 8.7 L (12.0-15.5) g/dL Hct 25.5 L (36.0-46.0) % MCV 103.2 H (80-95) fL MCH 35.2 H (27.0-33.0) pg Plt Count 98 L (130-400) x1000/uL Absolute Lymphocytes 0.73 L (1.2-3.4) k/cumm Sodium 124 L* (136-145) mmol/L Potassium (3.5-5.1) mmol/L Chloride (98-107) mmol/L Creatinine (0.55-1.02) mg/dL Calcium (8.5-10.1) mg/dL Magnesium (1.8-2.4) mg/dL AST (15-37) U/L Creatine Kinase (26-192) U/L Total Protein (6.4-8.2) g/dL Albumin (3.4-5.0) g/dL Stl C.difficile Tox PCR Vital Signs Temperature 37.5 C 11/19/18 12:01 Temperature Source Temporal Artery Scan 11/19/18 12:01 Pulse 89 11/19/18 12:01 Pulse Rhythm Regular 11/18/18 09:00 Pulse 91 H 11/19/18 10:00 Respiratory Rate 16 11/19/18 12:01 Respiratory Effort 11/19/18 08:00 Respiratory Depth Normal 11/19/18 08:00 Respiratory Pattern Normal 11/19/18 08:00 Blood Pressure 105/65 11/19/18 12:01 Blood Pressure Mean 79 11/19/18 08:01 Blood Pressure Position Supine 11/19/18 08:00 Pulse Oximetry 92 L 11/19/18 12:01 Oxygen Delivery Method Room Air 11/19/18 12:01 Oxygen Flow Rate 0 11/19/18 12:01 Fraction of Inspired Oxygen (FIO2) 28 11/18/18 13:40 Pain Level 9 11/19/18 15:42 Comment 11/19/18 12:01 Intake & Output 11/18/18 11/19/18 11/19/18 23:59 11:59 23:59 Intake Total 3134 / 4145.667 2176.667 / 3020.000 843.333 / 3020.000 Output Total 1650 / 2200 775 / 2125 1350 / 2125 Balance 1484 / 2992.868 4007.667 / 895.000 -506.667 / 895.000 Weight 39.8 kg Intake: IV 2200 / 2951.667 1516.667 / 2000.000 483.333 / 1999.000 Oral 934 / 1194 660 / 1020 360 / 1020 Output: Urine 1500 / 2000 67 / 5 1350 / 2024 Stool 150 / 200 100 / 100 Other: Urine Color Yellow Yellow Yellow Urine Appearance Clear Clear Clear Urine Odor Normal Normal Comment Patent indwelling love. Love catheter in place. pH of 6.5, SG of 1.020 Stool Occult Blood Positive Stool Size Moderate Smear Stool Characteristics Liquid Liquid Mucoid Brown Brown Voiding Methods Indwelling Catheter Indwelling Catheter Laboratory Results WBC 6.09 k/cumm (4.4-10.8) 11/19/18 06:15 RBC 2.47 m/cumm (4.00-5.20) L 11/19/18 06:15 Hgb 8.7 g/dL (12.0-15.5) L 11/19/18 06:15 Hct 25.5 % (36.0-46.0) L 11/19/18 06:15 MCV 103.2 fL (80-95) H 11/19/18 06:15 MCH 35.2 pg (27.0-33.0) H 11/19/18 06:15 MCHC 34.1 g/dL (32.0-36.0) 11/19/18 06:15 RDW 12.8 % (11.7-14.6) 11/19/18 06:15 Plt Count 98 x1000/uL (130-400) L 11/19/18 06:15 MPV 10.7 fL (8.0-11.0) 11/19/18 06:15 Immature Gran % 0.2 11/19/18 06:15 Neutrophils % 78.7 11/19/18 06:15 Lymphocytes % 12.0 11/19/18 06:15 Monocytes % 6.9 11/19/18 06:15 Eosinophils % 2.0 11/19/18 06:15 Basophils % 0.2 11/19/18 06:15 Absolute Neutrophils 4.80 k/cumm (1.2-6.7) 11/19/18 06:15 Absolute Lymphocytes 0.73 k/cumm (1.2-3.4) L 11/19/18 06:15 Absolute Monocytes 0.42 k/cumm (0.11-0.7) 11/19/18 06:15 Absolute Eosinophils 0.12 k/cumm (0.0-0.7) 11/19/18 06:15 Absolute Basophils 0.01 k/cumm (0.0-0.2) 11/19/18 06:15 Differential Comment Rbc morph reviewed 11/19/18 06:15 RBC Morphology See below 11/19/18 06:15 Polychromasia Present 11/19/18 06:15 Hypochromasia 1+ 11/18/18 07:00 Anisocytosis 1+ 11/19/18 06:15 Macrocytosis 1+ 11/19/18 06:15 PT 9.8 sec (9.3-11.0) 11/17/18 11:45 INR 1.0 (0.9-1.1) 11/17/18 11:45 APTT 29.4 sec (21.0-31.4) 11/17/18 11:45 Sodium 124 mmol/L (136-145) L* 11/19/18 13:40 Potassium 3.4 mmol/L (3.5-5.1) L 11/19/18 06:15 Chloride 94 mmol/L (98-107) L 11/19/18 06:15 Carbon Dioxide 24.2 mmol/L (21.0-32.0) 11/19/18 06:15 Anion Gap 6.8 mmol/L (3-11) 11/19/18 06:15 BUN 8 mg/dL (7-18) 11/19/18 06:15 Creatinine 0.41 mg/dL (0.55-1.02) L 11/19/18 06:15 Estimated GFR/1.73 m2 >= 60.00 (mL/min/1.73m2) 11/19/18 06:15 Glucose 91 mg/dL (70-100) 11/19/18 06:15 Calcium 7.4 mg/dL (8.5-10.1) L 11/19/18 06:15 Magnesium 1.4 mg/dL (1.8-2.4) L 11/19/18 06:15 Total Bilirubin 0.2 mg/dL (0.2-1.0) 11/19/18 06:15 Conjugated Bilirubin 0.06 mg/dL (0.00-0.20) 11/19/18 06:15 AST 43 U/L (15-37) H 11/19/18 06:15 ALT 35 U/L (12-78) 11/19/18 06:15 Alkaline Phosphatase 113 U/L (46-116) 11/19/18 06:15 Creatine Kinase 258 U/L (26-192) H 11/19/18 06:15 Total Protein 4.7 g/dL (6.4-8.2) L 11/19/18 06:15 Albumin 1.7 g/dL (3.4-5.0) L 11/19/18 06:15 TSH 3.16 uIU/mL (0.358-3.74) 11/17/18 11:45 Urine Color Yellow (Yellow) 11/17/18 12:25 Urine Clarity Clear (Clear) 11/17/18 12:25 Urine pH 6.0 (5-8) 11/17/18 12:25 Ur Specific [place] <= 1.005 (1.005-1.025) 11/17/18 12:25 Urine Protein Negative mg/dL (Negative) 11/17/18 12:25 Urine Ketones 15 mg/dL (Negative) H 11/17/18 12:25 Urine Blood Trace-lysed (Negative) H 11/17/18 12:25 Urine Nitrite Negative (Negative) 11/17/18 12:25 Urine Bilirubin Negative (Negative) 11/17/18 12:25 Urine Urobilinogen 0.2 EU/dL (Up TO 0.2) 11/17/18 12:25 Ur Leukocyte Esterase Negative (Negative) 11/17/18 12:25 Urine RBC 3-5 (0-2) H 11/17/18 12:25 Urine WBC Negative HPF (0-5) 11/17/18 12:25 Ur Epithelial Cells Negative HPF (Negative) 11/17/18 12:25 Urine Crystals Negative HPF (Negative) 11/17/18 12:25 Urine Bacteria Negative HPF (Negative) 11/17/18 12:25 Urine Casts Negative LPF (Negative) 11/17/18 12:25 Urine Mucus Negative (Negative) 11/17/18 12:25 Urine Other Few transitional (Negative) 11/17/18 12:25 Ur Culture Indicated? No 11/17/18 12:25 Urine Glucose Negative mg/dL (Negative) 11/17/18 12:25 Stl C.difficile Tox PCR Cancelled 11/17/18 12:47 Ethyl Alcohol 114.4 mg/dL (<3) 11/17/18 11:45 C.difficile Tox Source Cancelled 11/17/18 12:47
[2018-11-20] VITALS (14 sets, daily range): BP systolic 96–121; BP diastolic 60–83; PULSE 79–100; RESP 12–16; TEMP 36.3–37.6; O2SAT 84–97
[2018-11-20] MEDS: Vancomycin 125 MG CAP PO ×4 (06:01→18:01)
[2018-11-20] MEDS: Levothyroxine 100 MCG TAB PO (06:02)
--- NOTE | 2018-11-20 07:01 | NUR.NOTE ---
coccyx and cheeks purple and slightly open. scant bloody drng noted from areas. anacept gelapplied. offered to reposition but pt refused at this time.Nursing Note:
[2018-11-20 07:11] LABS: Abs Immature Grans 0.03 k/cumm (0.0-0.09); Absolute Basophil Count 0.01 k/cumm (0.0-0.2); Absolute Eosinophil Count 0.24 k/cumm (0.0-0.7); Absolute Monocyte Count 0.99 k/cumm (0.11-0.7); Absolute Neutrophil Count 3.84 k/cumm (1.2-6.7); Basophils % 0.2; Eosinophils % 3.9; HCT 28.4 % (36.0-46.0); HGB 9.5 g/dL (12.0-15.5); Immature Grans % 0.5; Lymphocytes % 17.7; Mean Corp. HGB Concentration 33.5 g/dL (32.0-36.0); Mean Corpuscular Hemoglobin 34.9 pg (27.0-33.0); Mean Corpuscular Volume 104.4 fL (80-95); Mean Platelet Volume 10.6 fL (8.0-11.0); Monocytes % 15.9; Neutrophils % 61.8; Platelet Count 117 x1000/uL (130-400); RBC 2.72 m/cumm (4.00-5.20); White Blood Cell Count 6.21 k/cumm (4.4-10.8)
[2018-11-20 07:23] LABS: Anion Gap 4.7 mmol/L (3-11); BUN 6 mg/dL (7-18); CO2 27.3 mmol/L (21.0-32.0); CREATININE 0.37 mg/dL (0.55-1.02); Calcium 8.1 mg/dL (8.5-10.1); Chloride 92 mmol/L (98-107); Glucose 70 mg/dL (70-100); Potassium 4.3 mmol/L (3.5-5.1)
[2018-11-20 07:28] LABS: ALT 31 U/L (12-78); AST 26 U/L (15-37); Albumin 1.8 g/dL (3.4-5.0); Alkaline Phosphatase 118 U/L (46-116); Bilirubin, Direct 0.07 mg/dL (0.00-0.20); Bilirubin, Total 0.3 mg/dL (0.2-1.0); Magnesium 1.3 mg/dL (1.8-2.4); Total Protein 4.9 g/dL (6.4-8.2)
[2018-11-20 07:53] LABS: Sodium 124 mmol/L (136-145)
--- NOTE | 2018-11-20 08:16 | PDOC.CMPRO ---
- If Service Date Differs Date of service: 11/20/18 Time of Service: 08:16 Care Management Progress Note S/O-Kayla was lying in bed on her side when CM came to see her. She was pleasant and friendly and readily engaged in conversation. She had a good understanding of the role of Care Management and was open to accepting assistance. Kayla stated that her first priority is to have surgery on her toe. She states she has a pinched nerve that needs to be fixed. She also stated that she knows that she will need to go to Rehab when she leaves [facility] after the surgery. Kayla was seen by Dr. Sow on 11/18/18 and he injected her toe which apparently has a neuroma. A-58 yo woman admitted with hyponatremia, dehydration, skin ulcers and failure to thrive. P-When ready for discharge, referrals will be sent to area rehab facilities if indicated. CM will continue to coordinate plans with patient and offer support to her and to the discharge planning process.
[2018-11-20] MEDS: Magnesium Oxide 400 MG TAB 800 MG PO ×2 (08:56→21:05)
[2018-11-20] MEDS: amLODIPine 5 MG TAB PO (08:56)
[2018-11-20] MEDS: Cyanocobalamin 500 MCG TAB PO (08:56)
[2018-11-20] MEDS: Calcium Carbonate 1.25 GM TAB PO ×2 (08:56→21:05)
[2018-11-20] MEDS: Fluconazole 100 MG TAB PO (08:57)
[2018-11-20] MEDS: Multivitamin TAB 1 TAB PO (08:57)
[2018-11-20] MEDS: Thiamine 100 MG TAB PO (08:58)
[2018-11-20] MEDS: Folic Acid 1 MG TAB PO (08:58)
[2018-11-20] MEDS: MAGNESIUM SULFATE 2 GM/50 ML BAG IVPB ×2 (08:59→18:00)
[2018-11-20] MEDS: Normal Saline Flush 10 ML SYR IVP ×3 (08:59→21:03)
[2018-11-20] MEDS: Metoprolol 50 MG TAB PO ×2 (09:05→21:05)
[2018-11-20 11:04] LABS: Campylobacter PCR SEE COMMENTS; Salmonella PCR SEE COMMENTS; Shiga Toxin PCR SEE COMMENTS; Shigella/Enteroinvasive Ecoli SEE COMMENTS
--- NOTE | 2018-11-20 11:50 | PT.INTREAT ---
Date of service: 11/20/18 Time of Service: 11:50 PT Notes Inpatient Physical Therapy Treatment Note [facility] Date: 11/20/2018 PRECAUTIONS: Fall, enteric precautions SUBJECTIVE: Kayla continues to state that she would like to go outside but she is not allowed to do so at this time. OBJECTIVE: PAIN: Patient c/o discomfort in left foot where her wound is located, as well as right upper arm discomfort when reaching for her FWW in the bicep area as well as at her IV site. Patient also c/o gluteal pain with transfers. BED MOBILITY/TRANSFERS Supine-sit: Min A?SBA with HOB at 50 degrees Sit-supine: SBA with HOB flat Sit-stand: CGA Stand-sit: CGA Bed?chair: CGA Chair-bed: CGA GAIT Assistive Device: FWW Weight bearing: Full Assist: CGA Distance: 5 steps in a.m.; 15' in p.m. Deviation: Increased fatigue Stood at EOB x2 minutes with SBA and FWW support THEREX: Patient completed a LE strengthening program, in a seated position, as per flow sheet. She c/o gluteal discomfort with hip flexion exercise. ASSESSMENT: Patient tolerated session with complaints of increased fatigue with activity as well as with complaints of gluteal pain with ther ex. Patient continues to tolerate short distance gait training with FWW support and CGA. Patient would benefit from continued gait and transfer training as well as general strengthening for improved mobility and improved activity tolerance. PLAN: Continue with PTs POC TREATMENT CODE/TIME: Session 1: 30 minutes; 24014, [id number] Session 2: 20 minutes; [id number]
[2018-11-20] MEDS: Enoxaparin 40 MG/0.4 ML SYR SC (12:09)
[2018-11-20] MEDS: Aspirin 81 MG CHEW PO (12:10)
[2018-11-20] MEDS: Acetaminophen 325 MG TAB 650 MG PO (12:11)
[2018-11-20 12:40] LABS: Sodium 122 mmol/L (136-145)
[2018-11-20] MEDS: traMADol 50 MG TAB PO ×2 (13:48→21:03)
--- NOTE | 2018-11-20 14:12 | CHAPLAIN ---
Kayla was sitting up in her chair when I visited. She was friendly and easily engaged in conversation. She remembered that we had visited on Sunday. She complained about the pain in her left foot and told me that her nurse was going to take the IV out of her right arm and she agreed to have a second one put in, if the nurse would have her a break before inserting the second one. Kayla told me she is feeling angry emotionally and mentally this morning. When I asked what was making her angry, she said she didn't want to be in the hospital any longer, but that she would stay. She told me she usually sheeba by getting angry, and then getting beyond it. Kayla was raised in the [employer], and said she stopped going when she and her were required to attend classes before getting , even though they were both Islam. They were in a Muslim gnosticist instead, Kayla said, and she never when back to gnosticist.
--- NOTE | 2018-11-20 15:13 | DI.RAD_ITS ---
SYMPTOMS/DIAGNOSIS: RIGHT UPPER EXTREMITY PAIN S/P FALL RIGHT HUMERUS: Two views were obtained. No fracture is seen.
--- NOTE | 2018-11-20 15:27 | PGE_ITS ---
Date of Service Date of service: 11/20/18 Time of Service: 15:27 Assessment and Plan (1) Hyponatremia: Current visit: No Status: Chronic Acute on chronic hyponatremia possibly related to pulmonary disease vs ETOH worsened from diarrhea and water loss. Sodium down to 122 today. She was off IV fluids overnight. She appears dry by physical exam, her chloride is also low. Resume IV fluids, she is no longer having diarrhea which may help her maintain her sodium level. Reassess sodium in the morning. (2) C. difficile colitis: Current visit: Yes Status: Acute PCR positive. Currently on day #2/10 of oral vanco. Her diarrhea has resolved. Continue oral vancomycin. (3) Alcohol use: Current visit: No Status: Acute Scoring 0-4 today on CIWA. Oxazepam was discontinued. Continue PRN ativan per CIWA protocol. Continue to replace folate, thiamine and multivitamin. (4) Wounds and injuries: Current visit: Yes Status: Acute Multiple wounds to bilateral knees, unstageable to right hip and lateral thigh. Dressing/care per wound consult. Extensive fungal dermatitis. Continue to treat fungal dermatitis with oral diflucan. (5) Folate deficiency: Current visit: No Status: Acute Continue folate supplementation. (6) Hypothyroidism: Current visit: No Status: Chronic TSH normal range continue current dose. (7) Failure to thrive: Current visit: No Status: Acute Appears to be failing at home in the setting of ongoing ETOH abuse. Nutrition consulted. Will likely need placement when ready for discharge. (8) Tobacco abuse: Current visit: Yes Status: Acute Declines nicotine replacement. (9) Diarrhea: Current visit: Yes Status: Acute C-diff antigen positive, toxin negative, PCR positive. See above. (10) Lala infection: Current visit: Yes Status: Acute Severe infection to multiple parts of the body. Continue IV fluconazole with clotrimazole/zinc/a/d compound. (11) DVT prophylaxis: Current visit: No Status: Acute Hgb stabilized, lovenox resumed. (12) Discharge planning issues: Current visit: No Status: Acute She is a full code. She does not appear to be effectively caring for herself at home. She may need placement at rehab prior to returning home. Palliative consulted for failure to thrive, goals of care discussion. This case was discussed with Dr. Rodriguez who is in agreement. Subjective Interval history since last seen: Kayla reports feeling fatigued and weak today. She reports that her left foot is killing her. She reports her left foot pain goes from her toes to her ankles and she rates her pain at a 10/10. Her left foot pain is her biggest concern. She also reports pain to her buttocks, nursing reports that they continuously try to help her reposition, however, she refuses to be positioned off of her bottom. She continues to report right upper extremity pain, she reports that she landed on her left upper arm when she fell at home. She has been declining an x-ray of her right arm, however, today she agrees to have the x-ray. Nursing reports that she is not eating. She reports that she generally does not eat very much. She denies abdominal pain, nausea, vomiting. Her C. difficile PCR is positive, however, she is no longer having diarrhea. She has not had a bowel movement yet today. She is eagerly awaiting Dr. Sow to return to reevaluate her left foot. Exam Narrative Exam Narrative: General: 58 year old thin, frail appearing female, appears older than stated age, she is awake and alert, sitting up in bed, answers questions appropriately. HEENT: normocephalic, atraumatic. PERRLA, EOMI, mucous membranes dry, tongue with white coating. Neck: supple, no JVD. Cardiovascular: Heart has regular rate and rhythm, no murmur appreciated. Respiratory: Respirations even and unlabored, lung sounds clear bilaterally, no wheezing or rhonchi. Gastrointestinal: Normoactive bowel sounds, abdomen thin, soft, nontender on palpation, no masses appreciated. Extremities: No clubbing, cyanosis or edema. Bilateral calves without erythema, swelling, tenderness. Pedal pulses palpable bilaterally. Skin: remington-area with confluent erythema- appears fungal. Unable to assess buttocks at this time. Mulitple wounds and areas of breakdown across extremities. Objective Objective Clinical Data: Abnormal lab results 11/20/18 11/20/18 11/20/18 Range/Units 06:10 06:10 06:10 RBC 2.72 L (4.00-5.20) m/cumm Hgb 9.5 L (12.0-15.5) g/dL Hct 28.4 L (36.0-46.0) % MCV 104.4 H (80-95) fL MCH 34.9 H (27.0-33.0) pg Plt Count 117 L (130-400) x1000/uL Absolute Lymphocytes 1.10 L (1.2-3.4) k/cumm Absolute Monocytes 0.99 H (0.11-0.7) k/cumm Sodium 124 L* (136-145) mmol/L Chloride 92 L (98-107) mmol/L BUN 6 L (7-18) mg/dL Creatinine 0.37 L (0.55-1.02) mg/dL Calcium 8.1 L (8.5-10.1) mg/dL Magnesium 1.3 L (1.8-2.4) mg/dL Alkaline Phosphatase 118 H (46-116) U/L Total Protein 4.9 L (6.4-8.2) g/dL Albumin 1.8 L (3.4-5.0) g/dL 11/20/18 Range/Units 12:14 RBC (4.00-5.20) m/cumm Hgb (12.0-15.5) g/dL Hct (36.0-46.0) % MCV (80-95) fL MCH (27.0-33.0) pg Plt Count (130-400) x1000/uL Absolute Lymphocytes (1.2-3.4) k/cumm Absolute Monocytes (0.11-0.7) k/cumm Sodium 122 L* (136-145) mmol/L Chloride (98-107) mmol/L BUN (7-18) mg/dL Creatinine (0.55-1.02) mg/dL Calcium (8.5-10.1) mg/dL Magnesium (1.8-2.4) mg/dL Alkaline Phosphatase (46-116) U/L Total Protein (6.4-8.2) g/dL Albumin (3.4-5.0) g/dL Vital Signs Temperature 37.6 C H 11/20/18 08:35 Temperature Source Temporal Artery Scan 11/20/18 08:35 Pulse 84 11/20/18 12:13 Pulse Rhythm Regular 11/20/18 08:30 Pulse 84 11/19/18 10:30 Respiratory Rate 16 11/19/18 20:00 Respiratory Effort Non-Labored 11/20/18 08:30 Respiratory Depth Normal 11/20/18 08:30 Respiratory Pattern Normal 11/20/18 08:30 Blood Pressure 112/64 11/20/18 12:13 Blood Pressure Mean 74 11/20/18 12:13 Blood Pressure Position Supine 11/19/18 08:00 Pulse Oximetry 90 L 11/20/18 12:14 Oxygen Delivery Method Room Air 11/20/18 08:45 Oxygen Flow Rate 0 11/20/18 08:45 Fraction of Inspired Oxygen (FIO2) 28 11/18/18 13:40 Pain Level 10 11/20/18 13:48 Comment 11/19/18 12:01 Intake & Output 11/19/18 11/20/18 11/20/18 23:59 11:59 23:59 Intake Total 1777.083 / 3953.750 535 / 770 235 / 770 Output Total 1350 / 5 1550 / 1950 400 / 1950 Balance 427.083 / 1828.750 -1015 / -1180 -165 / -1180 Weight 42.2 kg Intake: IV 1127.083 / 2643.750 Oral 650 / 1310 535 / 770 235 / 770 Output: Urine 1350 / 5 1550 / 1950 400 / 1950 Other: Urine Color Yellow Pale Pale Yellow Yellow Urine Appearance Clear Clear Clear Comment Pt was agitated when I came on but I was able to build a good reporre with her and she has been polite. She is stil refusing to lay on her L side but I educated her on the risks of pressure on her skin. Laboratory Results WBC 6.21 k/cumm (4.4-10.8) 11/20/18 06:10 RBC 2.72 m/cumm (4.00-5.20) L 11/20/18 06:10 Hgb 9.5 g/dL (12.0-15.5) L 11/20/18 06:10 Hct 28.4 % (36.0-46.0) L 11/20/18 06:10 MCV 104.4 fL (80-95) H 11/20/18 06:10 MCH 34.9 pg (27.0-33.0) H 11/20/18 06:10 MCHC 33.5 g/dL (32.0-36.0) 11/20/18 06:10 RDW 13.0 % (11.7-14.6) 11/20/18 06:10 Plt Count 117 x1000/uL (130-400) L 11/20/18 06:10 MPV 10.6 fL (8.0-11.0) 11/20/18 06:10 Immature Gran % 0.5 11/20/18 06:10 Neutrophils % 61.8 11/20/18 06:10 Lymphocytes % 17.7 11/20/18 06:10 Monocytes % 15.9 11/20/18 06:10 Eosinophils % 3.9 11/20/18 06:10 Basophils % 0.2 11/20/18 06:10 Absolute Neutrophils 3.84 k/cumm (1.2-6.7) 11/20/18 06:10 Absolute Lymphocytes 1.10 k/cumm (1.2-3.4) L 11/20/18 06:10 Absolute Monocytes 0.99 k/cumm (0.11-0.7) H 11/20/18 06:10 Absolute Eosinophils 0.24 k/cumm (0.0-0.7) 11/20/18 06:10 Absolute Basophils 0.01 k/cumm (0.0-0.2) 11/20/18 06:10 Differential Comment Rbc morph reviewed 11/19/18 06:15 RBC Morphology See below 11/19/18 06:15 Polychromasia Present 11/19/18 06:15 Hypochromasia 1+ 11/18/18 07:00 Anisocytosis 1+ 11/19/18 06:15 Macrocytosis 1+ 11/19/18 06:15 PT 9.8 sec (9.3-11.0) 11/17/18 11:45 INR 1.0 (0.9-1.1) 11/17/18 11:45 APTT 29.4 sec (21.0-31.4) 11/17/18 11:45 Sodium 122 mmol/L (136-145) L* 11/20/18 12:14 Potassium 4.3 mmol/L (3.5-5.1) D 11/20/18 06:10 Chloride 92 mmol/L (98-107) L 11/20/18 06:10 Carbon Dioxide 27.3 mmol/L (21.0-32.0) 11/20/18 06:10 Anion Gap 4.7 mmol/L (3-11) 11/20/18 06:10 BUN 6 mg/dL (7-18) L 11/20/18 06:10 Creatinine 0.37 mg/dL (0.55-1.02) L 11/20/18 06:10 Estimated GFR/1.73 m2 >= 60.00 (mL/min/1.73m2) 11/20/18 06:10 Glucose 70 mg/dL (70-100) 11/20/18 06:10 Calcium 8.1 mg/dL (8.5-10.1) L 11/20/18 06:10 Magnesium 1.3 mg/dL (1.8-2.4) L 11/20/18 06:10 Total Bilirubin 0.3 mg/dL (0.2-1.0) 11/20/18 06:10 Conjugated Bilirubin 0.07 mg/dL (0.00-0.20) 11/20/18 06:10 AST 26 U/L (15-37) 11/20/18 06:10 ALT 31 U/L (12-78) 11/20/18 06:10 Alkaline Phosphatase 118 U/L (46-116) H 11/20/18 06:10 Creatine Kinase 258 U/L (26-192) H 11/19/18 06:15 Total Protein 4.9 g/dL (6.4-8.2) L 11/20/18 06:10 Albumin 1.8 g/dL (3.4-5.0) L 11/20/18 06:10 TSH 3.16 uIU/mL (0.358-3.74) 11/17/18 11:45 Urine Color Yellow (Yellow) 11/17/18 12:25 Urine Clarity Clear (Clear) 11/17/18 12:25 Urine pH 6.0 (5-8) 11/17/18 12:25 Ur Specific [place] <= 1.005 (1.005-1.025) 11/17/18 12:25 Urine Protein Negative mg/dL (Negative) 11/17/18 12:25 Urine Ketones 15 mg/dL (Negative) H 11/17/18 12:25 Urine Blood Trace-lysed (Negative) H 11/17/18 12:25 Urine Nitrite Negative (Negative) 11/17/18 12:25 Urine Bilirubin Negative (Negative) 11/17/18 12:25 Urine Urobilinogen 0.2 EU/dL (Up TO 0.2) 11/17/18 12:25 Ur Leukocyte Esterase Negative (Negative) 11/17/18 12:25 Urine RBC 3-5 (0-2) H 11/17/18 12:25 Urine WBC Negative HPF (0-5) 11/17/18 12:25 Ur Epithelial Cells Negative HPF (Negative) 11/17/18 12:25 Urine Crystals Negative HPF (Negative) 11/17/18 12:25 Urine Bacteria Negative HPF (Negative) 11/17/18 12:25 Urine Casts Negative LPF (Negative) 11/17/18 12:25 Urine Mucus Negative (Negative) 11/17/18 12:25 Urine Other Few transitional (Negative) 11/17/18 12:25 Ur Culture Indicated? No 11/17/18 12:25 Urine Glucose Negative mg/dL (Negative) 11/17/18 12:25 Stl C.difficile Tox PCR Cancelled 11/17/18 12:47 Ethyl Alcohol 114.4 mg/dL (<3) 11/17/18 11:45 C.difficile Tox Source Cancelled 11/17/18 12:47
[2018-11-20] MEDS: Normal Saline 1,000 ML 100 ML IV (18:11)
[2018-11-20] MEDS: Lactobacillus Acidophilus CAP 1 CAP PO (21:05)
[2018-11-21] VITALS (24 sets, daily range): BP systolic 85–131; BP diastolic 49–83; PULSE 77–101; RESP 16–18; TEMP 36.5–37.5; O2SAT 77–96
--- NOTE | 2018-11-21 00:41 | NUR.NOTE ---
While encouraging pt to take nutritional drink, pt states, bring me something I like Rn asks what pt would like to drink and pt replied, a fifth. Rn asked, the whole thing? and pt replied, why open it if you are not going to finish it! Pt agrees to try an ensure after this. Nursing Note:
[2018-11-21] MEDS: Vancomycin 125 MG CAP PO ×5 (00:55→23:25)
[2018-11-21] MEDS: Acetaminophen 325 MG TAB 650 MG PO (03:41)
[2018-11-21] MEDS: traMADol 50 MG TAB PO ×2 (03:42→17:44)
[2018-11-21] MEDS: Levothyroxine 100 MCG TAB PO (06:00)
[2018-11-21 07:40] LABS: ALT 26 U/L (12-78); AST 26 U/L (15-37); Albumin 1.6 g/dL (3.4-5.0); Alkaline Phosphatase 106 U/L (46-116); Bilirubin, Direct 0.06 mg/dL (0.00-0.20); Bilirubin, Total 0.2 mg/dL (0.2-1.0); Total Protein 4.7 g/dL (6.4-8.2)
[2018-11-21 08:53] LABS: Abs Immature Grans 0.03 k/cumm (0.0-0.09); Absolute Basophil Count 0.02 k/cumm (0.0-0.2); Absolute Eosinophil Count 0.19 k/cumm (0.0-0.7); Absolute Lymphocyte Count 1.05 k/cumm (1.2-3.4); Absolute Monocyte Count 1.06 k/cumm (0.11-0.7); Basophils % 0.3; Eosinophils % 2.5; HCT 25.7 % (36.0-46.0); HGB 8.5 g/dL (12.0-15.5); Immature Grans % 0.4; Lymphocytes % 13.5; Mean Corp. HGB Concentration 33.1 g/dL (32.0-36.0); Mean Corpuscular Hemoglobin 34.4 pg (27.0-33.0); Mean Platelet Volume 10.5 fL (8.0-11.0); Monocytes % 13.7; Neutrophils % 69.6; Platelet Count 155 x1000/uL (130-400); RBC 2.47 m/cumm (4.00-5.20); RBC Distribution Width 13.4 % (11.7-14.6); White Blood Cell Count 7.75 k/cumm (4.4-10.8)
--- NOTE | 2018-11-21 08:54 | W.PM.PROGNOT ---
Date of Service Date of service: 11/21/18 Time of Service: 08:54 Subjective Patient reports: still having pain Exam Narrative Exam Narrative: Kayla is seen at bedside in the ICU, room 219. She indicates that she continues to have episodic severe pain in her left leg. She states the pain feels like it starts in the ball of the foot and shoots up to the hip. She does indicate that she can walk from her bed to the bathroom and back without any pain and then after a period of time laying in bed she will get sharp shooting pains that she finds excruciating. She did not obtain any significant relief of symptoms even temporarily following the local injection of her left third intermetatarsal space that I performed couple of days ago. Pulse 80, temperature 37.1 O2 sat room air 88 Morning labs are pending On examination both lower extremities were warm to the touch, pulses were slightly palpable manually this morning. Capillary return was on the 5 seconds to all toes calves were soft to palpation. There was no finding of ischemia. Skeletal exam was grossly benign. There was no heat, swellings or gross deformities LLE Muscle exam: Muscle mass is severely diminished. Muscle power 5 out of 5 bilaterally. Neurological exam: Gross sensation appears intact. Toes are downgoing. Tarsal tunnel is benign on percussion. Sensitivity persists with palpation in the third intermetatarsal space of the left but no click was evident. Remaining exam appeared grossly unremarkable at this time. Impressions: Pain appreciated in the left lower extremity per patient history. I do not believe it emanates within the foot. Differential can include spinal stenosis with radiculopathy, nerve impingement more proximal to the ankle joint Plan: I explained to Kayla that she was admitted with multiple comorbidities not related to her current. I am recommending that she obtain a neurology assessment after discharge. I did discuss this case with Dr. Rodriugez who is in agreement. Objective Objective Clinical Data: Abnormal lab results 11/20/18 11/21/18 Range/Units 12:14 06:25 Sodium 122 L* (136-145) mmol/L Total Protein 4.7 L (6.4-8.2) g/dL Albumin 1.6 L (3.4-5.0) g/dL Vital Signs Temperature 37.1 C 11/21/18 08:09 Temperature Source Temporal Artery Scan 11/21/18 08:09 Pulse 80 11/21/18 08:09 Pulse Rhythm Regular 11/21/18 07:31 Pulse 79 11/21/18 07:59 Respiratory Rate 12 11/20/18 20:55 Respiratory Effort Non-Labored 11/21/18 07:31 Respiratory Depth Normal 11/21/18 07:31 Respiratory Pattern Normal 11/21/18 07:31 Blood Pressure 91/64 L 11/21/18 07:59 Blood Pressure Mean 69 11/21/18 07:06 Blood Pressure Position Supine 11/19/18 08:00 Pulse Oximetry 88 L 11/21/18 08:09 Oxygen Delivery Method Room Air 11/21/18 08:09 Oxygen Flow Rate 0 11/21/18 08:09 Fraction of Inspired Oxygen (FIO2) 28 11/18/18 13:40 Pain Level 10 11/21/18 03:42 Comment 11/21/18 08:09 Intake & Output 11/20/18 11/21/18 11/21/18 18:59 06:59 18:59 Intake Total 660 / 1147 487 / 1147 1000 / 1000 Output Total 400 / 1700 1300 / 1700 Balance 260 / -553 -813 / -553 1000 / 1000 Weight 38.8 kg Intake: IV 50 / 100 50 / 100 1000 / 1000 Oral 610 / 1047 437 / 1047 Output: Urine 400 / 1700 1300 / 1700 Other: Urine Color Pale Yellow Yellow Yellow Urine Appearance Clear Clear Clear Stool Size Moderate Stool Characteristics Soft Laboratory Results WBC 6.21 k/cumm (4.4-10.8) 11/20/18 06:10 RBC 2.72 m/cumm (4.00-5.20) L 11/20/18 06:10 Hgb 9.5 g/dL (12.0-15.5) L 11/20/18 06:10 Hct 28.4 % (36.0-46.0) L 11/20/18 06:10 MCV 104.4 fL (80-95) H 11/20/18 06:10 MCH 34.9 pg (27.0-33.0) H 11/20/18 06:10 MCHC 33.5 g/dL (32.0-36.0) 11/20/18 06:10 RDW 13.0 % (11.7-14.6) 11/20/18 06:10 Plt Count 117 x1000/uL (130-400) L 11/20/18 06:10 MPV 10.6 fL (8.0-11.0) 11/20/18 06:10 Immature Gran % 0.5 11/20/18 06:10 61.8 11/20/18 06:10 17.7 11/20/18 06:10 15.9 11/20/18 06:10 3.9 11/20/18 06:10 0.2 11/20/18 06:10 Absolute Neutrophils 3.84 k/cumm (1.2-6.7) 11/20/18 06:10 Absolute Lymphocytes 1.10 k/cumm (1.2-3.4) L 11/20/18 06:10 Absolute Monocytes 0.99 k/cumm (0.11-0.7) H 11/20/18 06:10 Absolute Eosinophils 0.24 k/cumm (0.0-0.7) 11/20/18 06:10 Absolute Basophils 0.01 k/cumm (0.0-0.2) 11/20/18 06:10 Rbc morph reviewed 11/19/18 06:15 RBC Morphology See below 11/19/18 06:15 Present 11/19/18 06:15 1+ 11/18/18 07:00 1+ 11/19/18 06:15 1+ 11/19/18 06:15 PT 9.8 sec (9.3-11.0) 11/17/18 11:45 INR 1.0 (0.9-1.1) 11/17/18 11:45 APTT 29.4 sec (21.0-31.4) 11/17/18 11:45 Sodium 122 mmol/L (136-145) L* 11/20/18 12:14 Potassium 4.3 mmol/L (3.5-5.1) D 11/20/18 06:10 Chloride 92 mmol/L (98-107) L 11/20/18 06:10 Carbon Dioxide 27.3 mmol/L (21.0-32.0) 11/20/18 06:10 4.7 mmol/L (3-11) 11/20/18 06:10 BUN 6 mg/dL (7-18) L 11/20/18 06:10 0.37 mg/dL (0.55-1.02) L 11/20/18 06:10 >= 60.00 (mL/min/1.73m2) 11/20/18 06:10 Glucose 70 mg/dL (70-100) 11/20/18 06:10 Calcium 8.1 mg/dL (8.5-10.1) L 11/20/18 06:10 Magnesium 1.3 mg/dL (1.8-2.4) L 11/20/18 06:10 0.2 mg/dL (0.2-1.0) 11/21/18 06:25 0.06 mg/dL (0.00-0.20) 11/21/18 06:25 AST 26 U/L (15-37) 11/21/18 06:25 ALT 26 U/L (12-78) 11/21/18 06:25 106 U/L (46-116) 11/21/18 06:25 258 U/L (26-192) H 11/19/18 06:15 4.7 g/dL (6.4-8.2) L 11/21/18 06:25 1.6 g/dL (3.4-5.0) L 11/21/18 06:25 TSH 3.16 uIU/mL (0.358-3.74) 11/17/18 11:45 Yellow (Yellow) 11/17/18 12:25 Clear (Clear) 11/17/18 12:25 6.0 (5-8) 11/17/18 12:25 Ur Specific [place] <= 1.005 (1.005-1.025) 11/17/18 12:25 Negative mg/dL (Negative) 11/17/18 12:25 15 mg/dL (Negative) H 11/17/18 12:25 Trace-lysed (Negative) H 11/17/18 12:25 Negative (Negative) 11/17/18 12:25 Negative (Negative) 11/17/18 12:25 0.2 EU/dL (Up TO 0.2) 11/17/18 12:25 Ur Leukocyte Esterase Negative (Negative) 11/17/18 12:25 3-5 (0-2) H 11/17/18 12:25 Negative HPF (0-5) 11/17/18 12:25 Ur Epithelial Cells Negative HPF (Negative) 11/17/18 12:25 Negative HPF (Negative) 11/17/18 12:25 Negative HPF (Negative) 11/17/18 12:25 Negative LPF (Negative) 11/17/18 12:25 Negative (Negative) 11/17/18 12:25 Few transitional (Negative) 11/17/18 12:25 Ur Culture Indicated? No 11/17/18 12:25 Negative mg/dL (Negative) 11/17/18 12:25 Stool Campylobacter PCR See comments 11/18/18 15:20 Stl C.difficile Tox PCR Cancelled 11/17/18 12:47 Stool Salmonella PCR See comments 11/18/18 15:20 Stool Shigella PCR See comments 11/18/18 15:20 Ethyl Alcohol 114.4 mg/dL (<3) 11/17/18 11:45 C.difficile Tox Source Cancelled 11/17/18 12:47 See comments 11/18/18 15:20
[2018-11-21 09:05] LABS: Anion Gap 5.5 mmol/L (3-11); BUN 5 mg/dL (7-18); CO2 26.5 mmol/L (21.0-32.0); CREATININE 0.46 mg/dL (0.55-1.02); Calcium 7.4 mg/dL (8.5-10.1); Chloride 95 mmol/L (98-107); Glucose 81 mg/dL (70-100); Potassium 3.5 mmol/L (3.5-5.1); Sodium 127 mmol/L (136-145)
--- NOTE | 2018-11-21 09:14 | PDOC.CMPRO ---
Care Management Progress Note S/O-Met with Kayla today. Advised that [facility] does not have bed for her and has declined. We discussed referral to the [facility], to which she was receptive, and referral was faxed to the [facility]. She also apparently told [employer] that we were also working on [facility]. This was not mentioned to this CM by patient, but [facility] was contacted and they do not have any beds available. Still awaiting response from the [facility]. Kayla feels she needs to go to rehab and is actually fearful of going home. It might be necessary to consider short term SB1 if there is no community SNF bed available A-58 yo woman admitted with hyponatremia, dehydration, skin ulcers and failure to thrive. P-Await response from the [facility]. Consider SB1 if no beds available. CM will continue to coordinate plans.
[2018-11-21] MEDS: Enoxaparin 40 MG/0.4 ML SYR SC (09:21)
[2018-11-21] MEDS: Metoprolol 50 MG TAB PO ×2 (09:22→21:51)
[2018-11-21] MEDS: Thiamine 100 MG TAB PO (09:22)
[2018-11-21] MEDS: Multivitamin TAB 1 TAB PO (09:22)
[2018-11-21] MEDS: Fluconazole 100 MG TAB PO (09:22)
[2018-11-21] MEDS: Calcium Carbonate 1.25 GM TAB PO ×2 (09:23→21:50)
[2018-11-21] MEDS: amLODIPine 5 MG TAB PO (09:23)
[2018-11-21] MEDS: Folic Acid 1 MG TAB PO (09:23)
[2018-11-21] MEDS: Magnesium Oxide 400 MG TAB 800 MG PO ×2 (09:24→21:51)
[2018-11-21] MEDS: Aspirin 81 MG CHEW PO (09:24)
[2018-11-21] MEDS: Cyanocobalamin 500 MCG TAB PO (09:24)
[2018-11-21] MEDS: Normal Saline Flush 10 ML SYR IVP ×2 (09:25→21:51)
[2018-11-21 10:33] LABS: Magnesium 1.7 mg/dL (1.8-2.4)
[2018-11-21] MEDS: MAGNESIUM SULFATE 2 GM/50 ML BAG IVPB (11:45)
[2018-11-21] MEDS: Potassium Chloride 20 MEQ TABCR 40 MEQ PO (11:46)
--- NOTE | 2018-11-21 11:59 | PT.INTREAT ---
Date of service: 11/21/18 Time of Service: 11:59 PT Notes Inpatient Physical Therapy Treatment Note [facility] Date: 11/21/2018 PRECAUTIONS: Fall, enteric precautions SUBJECTIVE: Kayla states that she is angry this morning because her left foot is still hurting. OBJECTIVE: PAIN: Patient c/o discomfort in left foot, right upper arm when reaching for her FWW in the bicep area, as well as gluteal pain with transfers. BED MOBILITY/TRANSFERS Supine-sit: SBA with HOB at 50 degrees Sit-supine: S with HOB flat Sit-stand: SBA Stand-sit: SBA Bed?chair: CGA Chair-bed: CGA GAIT Assistive Device: FWW Weight bearing: Full Assist: CGA Distance: 3 steps + 15' in a.m. Deviation: Increased fatigue, seated rest Static standing x3 minutes with SBA and FWW support THEREX: Patient completed an UE and LE strengthening program, in a seated position, as per flow sheet. She c/o gluteal discomfort with hip flexion exercise, as well as R arm discomfort with all UE exercises. ASSESSMENT: Patient tolerated session with complaints of increased fatigue with activity as well as with complaints of gluteal and R arm pain with ther ex. Patient continues to tolerate short distance gait training with FWW support and CGA. Patient would benefit from continued gait and transfer training as well as general strengthening for improved mobility and improved activity tolerance. PLAN: Continue with PTs POC TREATMENT CODE/TIME: Session 1: 45 minutes; [id number] x2, [id number]
--- NOTE | 2018-11-21 12:44 | PGE_ITS ---
Date of Service Date of service: 11/21/18 Time of Service: 12:45 Assessment and Plan (1) Hyponatremia: Current visit: No Status: Chronic Acute on chronic hyponatremia possibly related to pulmonary disease vs ETOH worsened from diarrhea and water loss. Sodium improved to 127 today. She remains on IV NS, she is no longer having diarrhea which may help her maintain her sodium level. (2) C. difficile colitis: Current visit: Yes Status: Acute PCR positive. Currently on day #3/10 of oral vanco. Her diarrhea has resolved. Continue oral vancomycin for a 10 day course. (3) Alcohol use: Current visit: No Status: Acute Scoring 1 today on CIWA- max 6 throughout hospitalization. Oxazepam was previously discontinued. Continueto monitor on CIWA protocol. Continue to replace folate, thiamine and multivitamin. (4) Wounds and injuries: Current visit: Yes Status: Acute Multiple wounds to bilateral knees, unstageable to right hip and lateral thigh. Dressing/care per wound consult. Extensive fungal dermatitis. Continue to treat fungal dermatitis with oral diflucan, currently on day #3 of a 7-14 day course. (5) Folate deficiency: Current visit: No Status: Acute Continue folate supplementation. (6) Hypothyroidism: Current visit: No Status: Chronic TSH normal range continue current dose. (7) Failure to thrive: Current visit: No Status: Acute Appears to be failing at home in the setting of ongoing ETOH abuse. Nutrition consulted. Will likely need placement when ready for discharge. (8) Tobacco abuse: Current visit: Yes Status: Acute Declines nicotine replacement. (9) Diarrhea: Current visit: Yes Status: Acute C-diff antigen positive, toxin negative, PCR positive. See above. (10) Lala infection: Current visit: Yes Status: Acute Severe infection to multiple parts of the body. Continue IV fluconazole with clotrimazole/zinc/a/d compound. (11) Foot pain, left: Current visit: Yes Status: Chronic chronic. Has been seen by Dr. Sow, he does not believe that the pain emanates within the foot. Differential can include spinal stenosis with radiculopathy, nerve impingement more proximal to the ankle joint. He recommends that she follow up with neurology after discharge. (12) DVT prophylaxis: Current visit: No Status: Acute Hgb stabilized, lovenox resumed. (13) Discharge planning issues: Current visit: No Status: Acute She is a full code. She does not appear to be effectively caring for herself at home. She may need placement at rehab prior to returning home. Palliative consulted for failure to thrive, goals of care discussion. This case was discussed with Dr. Rodriguez who is in agreement. Subjective Interval history since last seen: Kayla reports ongoing fatigue and weakness. She continues to report left foot pain, which appears to be a major concern for her. She also reports pain to her buttocks, related to extensive fungal infection. She has been reluctant to offload pressure from her buttocks, however, appears to be agreeing to position changes today. She continues to report right upper extremity pain, she reports that she fell in her left upper arm at home. She did have a right humerus x-ray yesterday which was negative for fracture. She reports feeling nervous to go home. She agrees that she needs rehab. She has not been able to effectively care for herself at home. She is no longer experiencing diarrhea, she had a soft bowel movement today. She denies any other concerns. No dizziness, shortness of breath, cough, wheezing, chest pain/pressure, palpitations, abdominal pain, nausea or vomiting. She reports feeling hungry today. Exam Narrative Exam Narrative: General: 58 year old thin, frail appearing female, appears older than stated age, she is awake and alert, sitting up in bed, answers questions appropriately. HEENT: normocephalic, atraumatic. PERRLA, EOMI, mucous membranes moist, tongue with white coating. Neck: supple, no JVD. Cardiovascular: Heart has regular rate and rhythm, no murmur appreciated. Respiratory: Respirations even and unlabored, lung sounds clear bilaterally, no wheezing or rhonchi. Gastrointestinal: Normoactive bowel sounds, abdomen thin, soft, nontender on palpation, no masses appreciated. Extremities: No clubbing, cyanosis or edema. Bilateral calves without erythema, swelling, tenderness. Pedal pulses palpable bilaterally. Skin: [place]-area with confluent erythema- appears fungal. Unable to assess buttocks at this time. Multiple wounds and areas of breakdown, abrasions across extremities and right side of trunk. Objective Objective Clinical Data: Abnormal lab results 11/21/18 11/21/18 11/21/18 Range/Units 06:25 06:25 06:25 RBC 2.47 L (4.00-5.20) m/cumm Hgb 8.5 L (12.0-15.5) g/dL Hct 25.7 L (36.0-46.0) % MCV 104.0 H (80-95) fL MCH 34.4 H (27.0-33.0) pg Absolute Lymphocytes 1.05 L (1.2-3.4) k/cumm Absolute Monocytes 1.06 H (0.11-0.7) k/cumm Sodium 127 L (136-145) mmol/L Chloride 95 L (98-107) mmol/L BUN 5 L (7-18) mg/dL Creatinine 0.46 L (0.55-1.02) mg/dL Calcium 7.4 L (8.5-10.1) mg/dL Magnesium 1.7 L (1.8-2.4) mg/dL Total Protein 4.7 L (6.4-8.2) g/dL Albumin 1.6 L (3.4-5.0) g/dL Vital Signs Temperature 37.1 C 11/21/18 08:09 Temperature Source Temporal Artery Scan 11/21/18 08:09 Pulse 80 11/21/18 08:09 Pulse Rhythm Regular 11/21/18 07:31 Pulse 79 11/21/18 07:59 Respiratory Rate 12 11/20/18 20:55 Respiratory Effort Non-Labored 11/21/18 07:31 Respiratory Depth Normal 11/21/18 07:31 Respiratory Pattern Normal 11/21/18 07:31 Blood Pressure 91/64 L 11/21/18 07:59 Blood Pressure Mean 69 11/21/18 07:06 Blood Pressure Position Supine 11/19/18 08:00 Pulse Oximetry 88 L 11/21/18 08:09 Oxygen Delivery Method Room Air 11/21/18 08:09 Oxygen Flow Rate 0 11/21/18 08:09 Fraction of Inspired Oxygen (FIO2) 28 11/18/18 13:40 Pain Level 10 11/21/18 03:42 Comment 11/21/18 08:09 Intake & Output 11/20/18 11/21/18 11/21/18 23:59 11:59 23:59 Intake Total 772 / 1307 1200 / 1200 Output Total 400 / 1950 1300 / 1300 Balance 372 / -643 -100 / -100 Weight 38.8 kg Intake: IV 100 / 100 1000 / 1000 Oral 672 / 1207 200 / 200 Output: Urine 400 / 1950 1300 / 1300 Other: Urine Color Pale Yellow Yellow Urine Appearance Clear Clear Stool Size Moderate Stool Characteristics Soft Laboratory Results WBC 7.75 k/cumm (4.4-10.8) 11/21/18 06:25 RBC 2.47 m/cumm (4.00-5.20) L 11/21/18 06:25 Hgb 8.5 g/dL (12.0-15.5) L 11/21/18 06:25 Hct 25.7 % (36.0-46.0) L 11/21/18 06:25 MCV 104.0 fL (80-95) H 11/21/18 06:25 MCH 34.4 pg (27.0-33.0) H 11/21/18 06:25 MCHC 33.1 g/dL (32.0-36.0) 11/21/18 06:25 RDW 13.4 % (11.7-14.6) 11/21/18 06:25 Plt Count 155 x1000/uL (130-400) 11/21/18 06:25 MPV 10.5 fL (8.0-11.0) 11/21/18 06:25 Immature Gran % 0.4 11/21/18 06:25 69.6 11/21/18 06:25 13.5 11/21/18 06:25 13.7 11/21/18 06:25 2.5 11/21/18 06:25 0.3 11/21/18 06:25 Absolute Neutrophils 5.40 k/cumm (1.2-6.7) 11/21/18 06:25 Absolute Lymphocytes 1.05 k/cumm (1.2-3.4) L 11/21/18 06:25 Absolute Monocytes 1.06 k/cumm (0.11-0.7) H 11/21/18 06:25 Absolute Eosinophils 0.19 k/cumm (0.0-0.7) 11/21/18 06:25 Absolute Basophils 0.02 k/cumm (0.0-0.2) 11/21/18 06:25 Rbc morph reviewed 11/19/18 06:15 RBC Morphology See below 11/19/18 06:15 Present 11/19/18 06:15 1+ 11/18/18 07:00 1+ 11/19/18 06:15 1+ 11/19/18 06:15 PT 9.8 sec (9.3-11.0) 11/17/18 11:45 INR 1.0 (0.9-1.1) 11/17/18 11:45 APTT 29.4 sec (21.0-31.4) 11/17/18 11:45 Sodium 127 mmol/L (136-145) L 11/21/18 06:25 Potassium 3.5 mmol/L (3.5-5.1) 11/21/18 06:25 Chloride 95 mmol/L (98-107) L 11/21/18 06:25 Carbon Dioxide 26.5 mmol/L (21.0-32.0) 11/21/18 06:25 5.5 mmol/L (3-11) 11/21/18 06:25 BUN 5 mg/dL (7-18) L 11/21/18 06:25 0.46 mg/dL (0.55-1.02) L 11/21/18 06:25 >= 60.00 (mL/min/1.73m2) 11/21/18 06:25 Glucose 81 mg/dL (70-100) 11/21/18 06:25 Calcium 7.4 mg/dL (8.5-10.1) L 11/21/18 06:25 Magnesium 1.7 mg/dL (1.8-2.4) L 11/21/18 06:25 0.2 mg/dL (0.2-1.0) 11/21/18 06:25 0.06 mg/dL (0.00-0.20) 11/21/18 06:25 AST 26 U/L (15-37) 11/21/18 06:25 ALT 26 U/L (12-78) 11/21/18 06:25 106 U/L (46-116) 11/21/18 06:25 258 U/L (26-192) H 11/19/18 06:15 4.7 g/dL (6.4-8.2) L 11/21/18 06:25 1.6 g/dL (3.4-5.0) L 11/21/18 06:25 TSH 3.16 uIU/mL (0.358-3.74) 11/17/18 11:45 Yellow (Yellow) 11/17/18 12:25 Clear (Clear) 11/17/18 12:25 6.0 (5-8) 11/17/18 12:25 Ur Specific [place] <= 1.005 (1.005-1.025) 11/17/18 12:25 Negative mg/dL (Negative) 11/17/18 12:25 15 mg/dL (Negative) H 11/17/18 12:25 Trace-lysed (Negative) H 11/17/18 12:25 Negative (Negative) 11/17/18 12:25 Negative (Negative) 11/17/18 12:25 0.2 EU/dL (Up TO 0.2) 11/17/18 12:25 Ur Leukocyte Esterase Negative (Negative) 11/17/18 12:25 3-5 (0-2) H 11/17/18 12:25 Negative HPF (0-5) 11/17/18 12:25 Ur Epithelial Cells Negative HPF (Negative) 11/17/18 12:25 Negative HPF (Negative) 11/17/18 12:25 Negative HPF (Negative) 11/17/18 12:25 Negative LPF (Negative) 11/17/18 12:25 Negative (Negative) 11/17/18 12:25 Few transitional (Negative) 11/17/18 12:25 Ur Culture Indicated? No 11/17/18 12:25 Negative mg/dL (Negative) 11/17/18 12:25 Stool Campylobacter PCR See comments 11/18/18 15:20 Stl C.difficile Tox PCR Cancelled 11/17/18 12:47 Stool Salmonella PCR See comments 11/18/18 15:20 Stool Shigella PCR See comments 11/18/18 15:20 Ethyl Alcohol 114.4 mg/dL (<3) 11/17/18 11:45 C.difficile Tox Source Cancelled 11/17/18 12:47 See comments 11/18/18 15:20
--- NOTE | 2018-11-21 13:47 | CHAPLAIN ---
Kayla's friend Vinny was visiting when I stopped in. They had a disagreement about Kayla's ability to go home and live on her own. Kayla thinks she can, Vinny doesn't think so. After Vinny left, Kayla said she knows she needs to go to a SNF, but, she said, [facility] is full and she is waiting to hear back from the [facility] to see if she has been accepted there. Kayla at first was asking about going outside. She wanted to Vinny to take her out and not [facility] staff. She said it was affecting her spiritually and emotionally, not getting outside. She later dropped that request. Kayla said she is tried and looking forward to a nap this afternoon.
--- NOTE | 2018-11-21 15:53 | PT.INNT ---
Date of service: 11/21/18 Time of Service: 15:53 PT Notes 11/21/18 Held afternoon PT session, per nsg, as patient is sleeping. Will attempt to resume PT services tomorrow morning.
[2018-11-21] MEDS: LORazepam 1 MG TAB PO/SL (17:45)
[2018-11-21] MEDS: Normal Saline 1,000 ML 100 ML IV (17:58)
[2018-11-22] VITALS (20 sets, daily range): BP systolic 95–131; BP diastolic 58–74; PULSE 75–94; RESP 18; TEMP 37.8; O2SAT 81–98
[2018-11-22] MEDS: Levothyroxine 100 MCG TAB PO (06:30)
[2018-11-22] MEDS: Vancomycin 125 MG CAP PO ×3 (06:30→17:19)
--- NOTE | 2018-11-22 08:01 | CMPROGNOTE_ITS ---
- If Service Date Differs Date of service: 11/22/18 Time of Service: 08:01 Care Management Progress Note S/O- A-58 yo woman admitted with hyponatremia, dehydration, skin ulcers and failure to thrive. P-Await response from the [facility]. Consider SB1 if no beds available. CM will continue to coordinate plans.
[2018-11-22 08:11] LABS: ALT 30 U/L (12-78); AST 24 U/L (15-37); Albumin 1.7 g/dL (3.4-5.0); Alkaline Phosphatase 112 U/L (46-116); Bilirubin, Direct 0.06 mg/dL (0.00-0.20); Bilirubin, Total 0.3 mg/dL (0.2-1.0); Total Protein 5.2 g/dL (6.4-8.2)
[2018-11-22 08:49] LABS: Abs Immature Grans 0.05 k/cumm (0.0-0.09); Absolute Basophil Count 0.03 k/cumm (0.0-0.2); Absolute Eosinophil Count 0.29 k/cumm (0.0-0.7); Absolute Lymphocyte Count 1.15 k/cumm (1.2-3.4); Absolute Monocyte Count 1.07 k/cumm (0.11-0.7); Absolute Neutrophil Count 6.44 k/cumm (1.2-6.7); Basophils % 0.3; Eosinophils % 3.2; HCT 28.5 % (36.0-46.0); HGB 9.4 g/dL (12.0-15.5); Immature Grans % 0.6; Lymphocytes % 12.7; Mean Corpuscular Hemoglobin 34.8 pg (27.0-33.0); Mean Corpuscular Volume 105.6 fL (80-95); Mean Platelet Volume 9.6 fL (8.0-11.0); Monocytes % 11.8; Neutrophils % 71.4; Platelet Count 219 x1000/uL (130-400); RBC Distribution Width 13.8 % (11.7-14.6); White Blood Cell Count 9.03 k/cumm (4.4-10.8)
[2018-11-22 09:07] LABS: Diff Comment RBC Morph Reviewed; Macrocytosis 2+; Polychromasia Present; Stomatocytes 2+
[2018-11-22 09:14] LABS: Anion Gap 9.9 mmol/L (3-11); BUN 4 mg/dL (7-18); CO2 23.1 mmol/L (21.0-32.0); CREATININE 0.29 mg/dL (0.55-1.02); Calcium 7.8 mg/dL (8.5-10.1); Chloride 97 mmol/L (98-107); Glucose 64 mg/dL (70-100); Magnesium 1.6 mg/dL (1.8-2.4); Potassium 3.6 mmol/L (3.5-5.1); Sodium 130 mmol/L (136-145)
[2018-11-22] MEDS: Calcium Carbonate 1.25 GM TAB PO (09:19)
[2018-11-22] MEDS: Enoxaparin 40 MG/0.4 ML SYR SC (09:19)
[2018-11-22] MEDS: Folic Acid 1 MG TAB PO (09:19)
[2018-11-22] MEDS: Aspirin 81 MG CHEW PO (09:19)
[2018-11-22] MEDS: Magnesium Oxide 400 MG TAB 800 MG PO (09:20)
[2018-11-22] MEDS: Multivitamin TAB 1 TAB PO (09:20)
[2018-11-22] MEDS: amLODIPine 5 MG TAB PO (09:20)
[2018-11-22] MEDS: Fluconazole 100 MG TAB PO (09:20)
[2018-11-22] MEDS: traMADol 50 MG TAB PO (09:20)
[2018-11-22] MEDS: Thiamine 100 MG TAB PO (09:20)
[2018-11-22] MEDS: Cyanocobalamin 500 MCG TAB PO (09:20)
[2018-11-22] MEDS: Normal Saline Flush 10 ML SYR IVP (09:21)
[2018-11-22] MEDS: Metoprolol 50 MG TAB PO (09:21)
[2018-11-22] MEDS: Furosemide 20 MG/2 ML VIAL IVP (12:26)
--- NOTE | 2018-11-22 12:52 | PT.INTREAT ---
Date of service: 11/22/18 Time of Service: 12:52 PT Notes Inpatient Physical Therapy Treatment Note [facility] Date: 11/22/2018 PRECAUTIONS: Fall SUBJECTIVE: Kayla states that she is irritated today, but she is not sure why. She reports my body is just failing. OBJECTIVE: PAIN: Patient c/o L foot pain with weight bearing BED MOBILITY/TRANSFERS Supine-sit: Min A with HOB flat Sit-stand: S Stand-sit: S Bed-chair: CGA GAIT Assistive Device: FWW Weight bearing: WBAT Assist: CGA Distance: 3 steps + 15' (with 2 turns to R) Deviation: L foot pain ASSESSMENT: Patient tolerated session with complaint of left foot pain with weight bearing. She would benefit from continued gait and transfer training as well as strengthening for improved mobility and improved activity tolerance. PLAN: Continue with PTs POC TREATMENT CODE/TIME: 25 minutes; [id number] x2
--- NOTE | 2018-11-22 14:07 | CHAPLAIN ---
Kayla said she is frustrated today, but couldn't clearly explain why. She said she is going home today and although she said she is worried about being able to cook for herself (she said she makes [employer] and the pot is too heavy to lift) she also said she is want to be out of the hospital. She said she knows she has friends she can rely on for help, but they have lives of their own. I left when Leticia, the undertaker helper came in to visit Kayla.
--- NOTE | 2018-11-22 15:09 | W.NUTCONSULT ---
Date of service: 11/22/18 Time of Service: 15:09 Nutritional Consult ASSESSMENT: F/U nutrition assessment for Kayla Leon who is hospitalized with Failure to Thrive. She has lost 2 kg since admission despite many efforts to increase her caloric and protein intake. She has tried shakes and supplements, none of which she liked. Suggested snacks beside her bed and she states she does not want to waste them. She seems to either love a food offered, or hate it. She reports many self imposed food restrictions regarding textures and temperatures of foods. She states she doesn't have time to eat. Here she has been falling asleep during mealtime. NUTRITIONAL DIAGNOSIS: Inadequate caloric intake as evidenced by weight loss and BMI 15. INTERVENTION: Discussed ways to obtain food when it isn't mealtime. Discussed importance of nourishing herself to maintain health. Discussed preferences. MONITORING AND EVALUATION: Will take extra time to work with her food preferences and provide peanut butter crackers between meals. Will follow her weight and caloric intake Time Spent in Nutritional Counseling and Treatment: 30 minutes face to face
--- NOTE | 2018-11-22 15:09 | PT.INNT ---
Date of service: 11/22/18 Time of Service: 15:09 PT Notes 11/22/18 Patient refused afternoon PT session. Will attempt to resume PT services tomorrow morning.
--- NOTE | 2018-11-22 15:22 | DSE_ITS ---
Date of service: 11/22/18 Time of Service: 15:22 DS: Diagnosis Discharge Diagnosis (1) Hyponatremia: Status: Chronic (2) C. difficile colitis: Status: Acute (3) Alcohol use: Status: Acute (4) Wounds and injuries: Status: Acute (5) Folate deficiency: Status: Acute (6) Hypothyroidism: Status: Chronic (7) Failure to thrive: Status: Acute (8) Tobacco abuse: Status: Acute (9) Diarrhea: Status: Acute (10) Mario infection: Status: Acute (11) Foot pain, left: Status: Chronic Discharge Plan Disposition Patient Disposition: HOME W/HOME HEALTH SERVICE Condition: Improving Discharge Details Chief Complaint: GenMedical Clinical Impression: Diarrhea, Acute hyponatremia, Decubitus skin ulcer, Adult failure to thrive Reason For Visit: HYPONATREMIA,DEHYDRATION,SKIN ULCERS,FAILTOTHRIVE Admit Date/Time: 11/18/18 08:54 Admit Provider: Prashant Rodriguez Attending Provider: Prashant Rodriguez Primary Care Provider: Chidi Mccormack ED Provider: Jose Raul Tobar Hospital Course Hospital Course: Kayla Leon is a 58 year old female with a past medical history significant for Alcohol abuse,COPD, HTN, High cholesterol, hypothyroidism, chronic left foot pain, and chronic hyponatremia who presented to the [facility] ED on 11/17/18 after a friend found her down at home covered in feces and surrounded by empty alcohol containers. She was found to be weak and dehydrated due to diarrhea, she had multiple wounds and open areas all over her skin. She had recently been treated for UTI by her PCP office with [facility]. In the ED, she was found to have a sodium of 119, her ETOH level was 114, her potassium was 3/5, magnesium was low at 1.4. She was admitted to the floor for failure to thrive, dehydration, diarrhea, electrolyte abnormalities, wound care and monitoring for alcohol withdrawal. She received IV fluid hydration with normal saline, her sodium improved to 130 on the day of discharge. She was monitored for withdrawal, she did not show signs of withdrawal. She was initially started on oxazepam for withdrawal but became obtunded and the oxazepam was discontinued. She was seen by a wound care nurse who made recommendations for her multiple wounds. Home health will be asked to follow her wounds and provide care at her home. Her stool studies were positive for C-diff. She was started on oral vancomycin. Her diarrhea resolved. She worked with PT. She was able to ambulate with standby guard with PT. She has ongoing chronic left foot pain. She was seen by podiatry, Dr. Sow injected her left foot with bupivacaine. She denied that this helped with her pain. She received tramadol while hospitalized. PT indicates that although she reports foot pain, she was able to ambulate. PT recommends ongoing PT. It would have been ideal for Kayla to discharge to a intermediate facility, and she was agreeable to do so, however, she was not accepted at a rehab. Given that her sodium returned to her baseline (130) and her diarrhea resolved, she will be discharged home with increased services. She will have home health nursing, PT/OT and [facility] [employer]. It would be beneficial for her to apply to medicaid/medicare for more options related to housing. Her wounds/mario have improved, but will need ongoing care. She would benefit from home health assistants to help with cleaning and bathing. She will likely need a higher level of care in the near future. She advised against resuming drinking alcohol at home. Prior to her discharge, nursing was concerned about urine odor. A UA was obtai shawn. She was noted to have trace leukocyte esterase, no nitrites, only 3-5 WBC. Culture pending. Does not appear to be UTI with only 3-5 WBC. Kayla was seen by Dr. Yusuf, Palliative care, while she was an inpatient. Dr. Yusuf agrees to follow her in the community and will see her in her home. She will follow up with Podiatry. She will follow up with neurology, as recommended by Podiatry. She will follow up with her PCP and she will have home health services as above. She was also given information on [facility], which would be beneficial to maintain her safety at home. She will complete a course of oral vanco for c-diff, she will complete a 10 day course of diflucan for extensive mario dermatitis. She will have follow up labs to reassess liver function, sodium and anemia. She will be given a small prescription for tramadol. Will add a lidoderm patch to the dorsal aspect of her left foot. Home Meds and New Rx's Prescriptions: New fluconazole 100 mg Tablet 100 mg PO DAILY Qty: 7 RF: 0 tramadol 50 mg Tablet 25 - 50 mg PO Q6H PRN PRN (Reason: Pain) Qty: 12 RF: 0 vancomycin 125 mg Capsule 125 mg PO Q6H Qty: 24 RF: 0 lidocaine [Lidoderm] 5 % Adhesive Patch,Medicated 1 patch topical DIRECTED Qty: 5 RF: 0 Continued gabapentin 300 mg capsule 300 mg PO BID Qty: 90 RF: 11 diphenhydramine HCl [Benadryl] 25 MG capsule 25 mg PO DAILY PRNRF: 0 aspirin [Aspir-81] 81 MG tablet,delayed release (DR/EC) 81 mg PO DAILY RF: 0 metoprolol tartrate 50 mg tablet 50 mg PO BID Qty: 180 RF: 3 amlodipine 5 mg tablet 5 mg PO DAILY Qty: 90 RF: 3 levothyroxine 100 mcg tablet 100 mcg PO 0600 Qty: 90 RF: 3 acetaminophen [Tylenol] 325 mg Tablet 650 mg PO Q4H PRN PRNQty: 0 RF: 0 ipratropium-albuterol 0.5 mg-3 mg(2.5 mg base)/3 mL Solution For Nebulization 3 ml UPD Q6H PRN PRNQty: 0 RF: 0 zinc oxide 20 % Ointment 60 g topical TID Qty: 0 RF: 0 magnesium oxide 400 mg (241.3 mg magnesium) Tablet 800 mg PO BID Qty: 0 RF: 0 omeprazole 20 mg Capsule,Delayed Release(Dr/Ec) 20 mg PO DAILY@0730 Qty: 0 RF: 0 folic acid 1 mg Tablet 1 mg PO DAILY Qty: 0 RF: 0 clotrimazole 1 % Cream 60 g topical TID Qty: 0 RF: 0 vits A and D-white pet-lanolin Ointment 60 g topical TID Qty: 0 RF: 0 thiamine mononitrate (vit B1) [Vitamin B-1 (mononitrate)] 100 mg Tablet 100 mg PO DAILY Qty: 0 RF: 0 calcium carbonate 500 mg calcium (1,250 mg) tablet 500 mg PO BID Qty: 14 RF: 0 cyanocobalamin (vitamin B-12) 500 mcg lozenge 500 mcg PO DAILY Qty: 30 RF: 0 multivitamin tablet 1 tab PO DAILY Qty: 30 RF: 0 Discontinued nitrofurantoin monohyd/m-cryst [Macrobid] 100 mg capsule 100 mg PO BID Qty: 14 RF: 0 Discharge Instructions Instructions: Hyponatremia (DC), Vulvovaginal Candidiasis (GEN), Clostridium Difficile Infection (DC) Additional Instructions: Take the vancomycin until it is gone. Take diflucan until it is gone. Home health will come to your home tomorrow. Continue to abstain from alcohol. Continue smoking cessation. Follow up with your PCP, podiatry and neurology as scheduled. You will have labs drawn next week. Activity:: Activity as Tolerated Equipment/Supplies:: No Equipment Needed Diet:: As Tolerated Discharge Orders Discharge Orders: Discharge Order (Routine); Ordered 11/22/18 Ordered By: Glenda Simeon Other Ambulatory Orders: Complete Blood Count No Diff (Routine) Timeframe: 20181127 Facility: [facility] - Location: Access Ordered By: Glenda Simeon Comprehensive Metabolic Panel (Routine) Timeframe: 20181127 Location: None Selected Ordered By: Glenda Simeon Exam Narrative Exam Narrative: General: 58 year old thin, frail appearing female, appears older than stated age, she is awake and alert, sitting up in bed, answers questions appropriately. HEENT: normocephalic, atraumatic. PERRLA, EOMI, mucous membranes moist, tongue with white coating. Neck: supple, no JVD. Cardiovascular: Heart has regular rate and rhythm, no murmur appreciated. Respiratory: Respirations even and unlabored, lung sounds clear bilaterally, no wheezing or rhonchi. Gastrointestinal: Normoactive bowel sounds, abdomen thin, soft, nontender on palpation, no masses appreciated. Extremities: RUE with bruising and mild edema, full ROM to bilateral upper extremities- appears to be favoring RUE. No clubbing, cyanosis or edema to lower extremities. Bilateral calves without erythema, swelling, tenderness. Pedal pulses palpable bilaterally. Skin: remington-area with confluent erythema- appears fungal. Buttocks with skin breakdown bilaterally. Multiple wounds and areas of breakdown, abrasions across extremities and right side of trunk. DS: Data Vitals/I&O Vitals and I&O: Vital Signs Temperature 36.8 C 11/21/18 22:10 Temperature Source Tympanic 11/21/18 22:10 Pulse 83 11/22/18 14:01 Pulse Rhythm Regular 11/22/18 09:45 Pulse 79 11/21/18 07:59 Respiratory Rate 18 11/21/18 22:10 Respiratory Effort Non-Labored 11/22/18 09:45 Respiratory Depth Normal 11/22/18 09:45 Respiratory Pattern Normal 11/22/18 09:45 Blood Pressure 113/62 11/22/18 14:01 Blood Pressure Mean 74 11/22/18 14:01 Blood Pressure Position Supine 11/19/18 08:00 Pulse Oximetry 98 11/22/18 14:59 Oxygen Delivery Method Nasal Cannula 11/22/18 14:59 Oxygen Flow Rate 2 11/22/18 14:59 Fraction of Inspired Oxygen (FIO2) 28 11/18/18 13:40 Pain Level 10 11/21/18 03:42 Comment 11/21/18 22:10 Intake & Output 11/21/18 11/22/18 11/22/18 23:59 11:59 23:59 Intake Total 527 / 2057 1100 / 1100 Output Total 1350 / 2650 1350 / 3400 2050 / 3400 Balance -823 / -593 -250 / -2300 -2050 / -2300 Weight 38.9 kg Intake: IV 50 / 1050 1000 / 1000 Oral 477 / 1007 100 / 100 Output: Urine 1350 / 2650 1350 / 3400 2050 / 3400 Other: Urine Color Pale Yellow Pale Yellow Yellow Urine Appearance Clear Clear Clear Stool Size Moderate Stool Characteristics Soft Formed Brown Pending studies at discharge: PORTABLE AP CHEST: 0915 hours 11/18 The heart is not enlarged. There appear to be changes of COPD and pulmonary scarring,. No focal consolidation seen. No gross pleural effusion on this frontal film. CONCLUSION: No evidence of acute disease. 11/20/18: RIGHT HUMERUS: Two views were obtained. No fracture is seen. Labs on day of discharge: Labs from last 24 hours 11/22/18 11/22/18 11/22/18 08:23 06:37 06:37 WBC 9.03 Cancelled RBC 2.70 L Cancelled Hgb 9.4 L Cancelled Hct 28.5 L Cancelled MCV 105.6 H Cancelled MCH 34.8 H Cancelled MCHC 33.0 Cancelled RDW 13.8 Cancelled Plt Count 219 Cancelled MPV 9.6 Cancelled Immature Gran % 0.6 Cancelled Neutrophils % 71.4 Cancelled Band Neutrophils % Cancelled Lymphocytes % 12.7 Cancelled Atypical Lymphs % Cancelled Monocytes % 11.8 Cancelled Eosinophils % 3.2 Cancelled Basophils % 0.3 Cancelled Metamyelocytes % Cancelled Myelocytes % Cancelled Promyelocytes % Cancelled Absolute Neutrophils 6.44 Cancelled Absolute Lymphocytes 1.15 L Cancelled Absolute Monocytes 1.07 H Cancelled Absolute Eosinophils 0.29 Cancelled Absolute Basophils 0.03 Cancelled Nucleated RBCs Cancelled Differential Comment Rbc morph reviewed Cancelled Other Cell Type Cancelled RBC Morphology See below Cancelled Polychromasia Present Cancelled Hypochromasia Cancelled Poikilocytosis Cancelled Basophilic Stippling Cancelled Anisocytosis Cancelled Microcytosis Cancelled Macrocytosis 2+ Cancelled Spherocytes Cancelled Target Cells Cancelled Tear Drop Cells Cancelled Ovalocytes Cancelled Stomatocytes 2+ Cancelled Elizalde-St[place]ila[place] Bodies Cancelled [place] Cells Cancelled Acanthocytes (Spur) Cancelled Schistocytes Cancelled Sodium 130 L Potassium 3.6 Chloride 97 L Carbon Dioxide 23.1 Anion Gap 9.9 BUN 4 L Creatinine 0.29 L Estimated GFR/1.73 m2 >= 60.00 Glucose 64 L Calcium 7.8 L Magnesium 1.6 L Total Bilirubin Conjugated Bilirubin AST ALT Alkaline Phosphatase Total Protein Albumin 11/22/18 06:37 WBC RBC Hgb Hct MCV MCH MCHC RDW Plt Count MPV Immature Gran % Neutrophils % Band Neutrophils % Lymphocytes % Atypical Lymphs % Monocytes % Eosinophils % Basophils % Metamyelocytes % Myelocytes % Promyelocytes % Absolute Neutrophils Absolute Lymphocytes Absolute Monocytes Absolute Eosinophils Absolute Basophils Nucleated RBCs Differential Comment Other Cell Type RBC Morphology Polychromasia Hypochromasia Poikilocytosis Basophilic Stippling Anisocytosis Microcytosis Macrocytosis Spherocytes Target Cells Tear Drop Cells Ovalocytes Stomatocytes Elizalde-St. [place]ila[place] Bodies [place] Cells Acanthocytes (Spur) Schistocytes Sodium Potassium Chloride Carbon Dioxide Anion Gap BUN Creatinine Estimated GFR/1.73 m2 Glucose Calcium Magnesium Total Bilirubin 0.3 Conjugated Bilirubin 0.06 AST 24 ALT 30 Alkaline Phosphatase 112 Total Protein 5.2 L Albumin 1.7 L [facility] Medical History Arterial occlusive disease (Chronic 12/04/16) Continuous chewing tobacco dependence (Inactive 01/22/12) Essential hypertension (Chronic 01/22/12) Foot pain, left (Chronic 12/04/16) Hyperlipidemia (Chronic 08/21/12) Hyperlipidemia (Chronic 08/21/12) Hypothyroidism (Chronic) Neuropathy (Chronic 12/07/16) Social History Smoking/Tobacco Use Status: Current every day Alcohol Intake: current Alcohol Intake frequency: 0-2 drinks per day Alcohol type: beer and hard liquor Drug use: Never Substance use type: does not use Housing: apartment current occupation: not working at this time Pets and animals: Yes Pets and animals: cat(s) What type of physical activity do you participate in: none Duration: 15-30 minutes/day Frequency: 5-6 times per week Seatbelt use: always Drive intox or ride w/intox truck driver instructor: No Working smoke detector in home: Yes Fire extinguisher in home: Yes Carbon monox detector in home: Yes Do you feel safe at home: Yes Do you feel safe in your relationship?: Yes
[2018-11-22 16:06] LABS: Bilirubin Negative (Negative); Blood Trace-intact (Negative); Clarity Clear (Clear); Glucose Negative (Negative); Ketones Negative (Negative); Leukocyte Esterase Trace (Negative); Nitrite Negative (Negative); Specific Gravity 1.015 (1.005-1.025); Urobilinogen 0.2 EU/dL (Up TO 0.2)
[2018-11-22 16:25] LABS: Bacteria Moderate HPF (Negative); C & S Indicated? Yes; Casts Negative LPF (Negative); Crystals Negative HPF (Negative); Epithelial Cells Negative HPF (Negative); Mucus Negative (Negative); Other Cells Negative (Negative); RBC 0-2 (0-2)
--- NOTE | 2018-11-22 16:35 | PDOC.CMDIS ---
- If Service Date Differs Date of service: 11/22/18 Time of Service: 16:35 LACE Index Scoring Tool - Questions: Length of Stay (in days): 4 - 6 Acuity (Admit via E.D.?): Yes Comorbidities: PVD E.D. Visits: 6 - Answers: Total Score: 12 Risk of Readmission: High Risk Care Management Discharge Reason for Hospitalization: hyponatremia, dehydration, skin ulcers, failure to thrive Discharge Plan: Kayla will be discharged home this evening. She will follow up with her PCP and discharge plan of care. Kayla will be receiving new home health services of nursing, PT, OT and PIANO MACHINE OPERATOR. She will be transported by [facility]. Patient/Family Education Needs: Discharge plan, limitations, follow up plan, Ask Me Three.
[2018-11-22] MEDS: Acetaminophen 325 MG TAB 650 MG PO (16:47)
[2018-11-22] MEDS: Lidocaine 5% Patch 1 PATCH TP (16:47)
--- NOTE | 2018-11-22 16:51 | PDOC.HHF2F ---
1. Encounter Date and Reason I certify that ALESHA SINGH was seen by Glenda Simeon on 11/22/18 and that I had a [id number] encounter with this patient that meets the physician face to face encounter requirements. 2. Clinical Findings Supporting Skilled Need and Homebound Status I certify that home health services are medically necessary, include either intermittent mcc and/or physical/speech therapy, and that this patient is homebound in that absences from the home require considerable and taxing effort and are infrequent or of short duration, or are attributable to the need to receive medical care. [X] (a) Attached documentation from encounter provides clinical findings supporting skilled need and homebound status (including what assistance patient requires to leave the home). The encounter with the patient was in whole, or in part, for the following medical condition, which is the primary reason for home health care: HYPONATREMIA,DEHYDRATION,SKIN ULCERS, mario dermatitis, c-diff, ETOH abuse, FAILure TO THRIVE Residential: Needed to monitor medical conditions at home, assist with medication management, manage wounds per wound consult recommendations. Please draw labs to include CMP and CBC on 11/27/18, results to PCP. Would benefit from personal care assistance with bathing and maintaining clean environment. Physical Therapy: Needed to continue to work on strength and endurance at home after hospitalization. OT: Needed to evaluate/assess home environment and make recommendations to ensure she can be successful in her home enviroment. FLIGHT DYNAMICIST: Needed to assess needs, assist with connecting with resources in community, consider applying to insurance with more appropriate coverage, may need different living situation with higher level of care in near future. Speech Therapy: Homebound: Unable to leave home without assistance. 3. Certification and Authentication I certify that I composed the above information based on my clinical judgement relating to this patient's medical condition and, if applicable, clinical findings communicated to me by the NPP or inpatient physician who performed the Home Health Referral. All further orders will be obtained through ___Dr. Mccormack (Community Based Physician - PCP)
--- NOTE | 2018-11-22 19:00 | PT.INDS ---
Date of service: 11/22/18 PT Notes Inpatient Physical Therapy Discharge Summary Dates: 11/22/2018 Dates of Service: 11/19/2018 through 11/22/2018 This is a clinical summary of care provided on the duration of dates listed above. No charge was made in the completion of this documentation. Referring Doctor: Prashant Rodriguez MD PT Orders: PT CONSULT: Generalized weakness, hypothyroidism, hyponatremia, falling at home Precautions: Fall. Standard. Patient Profile/Admitting Diagnosis: Patient is a 58-year-old female with past medical history significant for arterial occlusive disease, neuropathy, foot pain, history of ETOH abuse, and hypothyroidism who presented to the ED via EMS on 11/17/2018 with chief complaints of diarrhea, weakness, dehydration, failure to thrive. Patient was diagnosed with Alcohol withrawal, multiple wounds in B UE/LE, folate deficiency, and tobacco abuse. referral for physical therapy was made to address impairments in strength, balance, and mobility level. PMHX: Medical History Continuous chewing tobacco dependence (Inactive 01/22/12) Hyperlipidemia (Chronic 08/21/12) Neuropathy (Chronic 12/07/16) Hyperlipidemia (Chronic 08/21/12) Foot pain, left (Chronic 12/04/16) Essential hypertension (Chronic 01/22/12) Arterial occlusive disease (Chronic 12/04/16) Hypothyroidism (Chronic) Social History/Home Situation: Patient lives at alone in an apartment in [place], [place]. She states she is independent with all aspects of ADLs without assistive ambulatory devices nor adaptive equipment. She reports she has worked for a long time at [employer], third shift. She does not drive. She further states that she is currently on medical leave back home and resume work. Equipment Owned/DME: None. Subjective: NT Objective: General Observation: NT Mental Status: NT Pain: NT ROM: Right Upper Extremity: Shoulder Flexion 0-80. Shoulder abduction 0-60. Elbow flexion WFL. Wrist flexion WFL. Functional opening and closing of hand WFL. Left Upper Extremity: Shoulder Flexion WFL. Shoulder abduction WFL. Elbow flexion WFL. Wrist flexion WFL. Functional opening and closing of hand WFL. Right Lower Extremity: Hip flexion WFL. Hip abduction WFL. Knee flexion WFL. Ankle dorsiflexion WFL. Ankle plantarflexion WFL. Left Lower Extremity: Hip flexion WFL. Hip abduction WFL. Knee flexion WFL. Ankle dorsiflexion WFL. Ankle plantarflexion WFL. STRENGTH: Right Upper Extremity: Shoulder flexors 3-/5. Shoulder abductors 3-/5. Elbow flexors 4/5. Elbow extensors 4/5. Assistant Kitchen Manager strong. Left Upper Extremity: Shoulder flexors 4/5. Shoulder abductors 4/5. Elbow flexors 4/5. Elbow extensors 4/5. Assistant Kitchen Manager strong. Right Lower Extremity:Hip flexors 3+/5. Hip abductors 3+/5. Knee flexors 3+/5. Knee extensors 4-/5. Ankle dorsiflexors 4/5. Ankle plantarflexors 4/5. Left Lower Extremity: Hip flexors 3+/5. Hip abductors 3+/5. Patient was able to tolerate minimal resistance provided to hip and knee extension in supine. Knee flexors 3+/5. Knee extensors 4-/5. Ankle dorsiflexors 4/5. Ankle plantarflexors 4/5. Sensation: Intact as to pain and pressure to B LE. BED MOBILITY LEVELS/TRANSFERS Rolling minimal assist of 1 Supine to sit S Sit to supine S Sit to stand S Stand to sit S Bed to chair CGA Chair to bed CGA Gait: Patient tolerated 15 requiring only CGA using FWW with full weight bearing. He was able to perform static stand x 3 minutes while holding onto FWW and SBA. Balance: Static Sitting: Fair Dynamic Sitting: Fair Static Standing: NT Dynamic Standing: NT Assessment: Patient is a 58 year old female referred to physical therapy services with the diagnosis of hyponatremia, generalized weakness, left foot pain, buttock pain.. Patient presents with clinical signs and symptoms consistent with current/admitting diagnoses that have resulted to mobility limitations, gait instability, generalized weakness, and impairment of motor control as demonstrated by the following impairment level findings: 1. Decreased strength to B LE major muscle groups 2. Impaired sitting/standing balance 3. Impaired activity tolerance 4. Multiple pressure areas on sacral and heels, multiple wounds on B hands and B knees Impairments are contributing to the following functional limitations: 1. Dependent bed mobility skills 2. Increased dependence with transfers 3. Inability to safely ambulate without assistive device and physical assistance 4. Increase completion time for mobility ADL performance 5. Increased fall risk 6. Inability to negotiate steps alone safely Goals: Goals X1 week 1. Supine-Sit independent NOT MET 2. Sit-Supine independent NOT MET 3. Sit-Stand independent NOT MET 4. Stand-Sit independent NOT MET 5. Bed-Chair independent NOT MET 6. Chair-Bed independent NOT MET 7. Independent gait on level surface with use of least restrictive device for at least 300 feet without report of pain nor dyspnea NOT MET 8. Independent stair negotiation while holding onto bilateral rails for at least 10 steps without report of pain nor dyspnea NOT MET 9. Independent with home exercise program NOT MET 10. Good static and dynamic standing balance/tolerance NOT MET DISCHARGE RECOMMENDATIONS: Patient will benefit from care home facility placement or home health physical therapy in order to maximize functional mobility level and facilitate return to work. Patient benefit from a front wheeled walker to maximize mobility and reduce fall risk TREATMENT CODE/TIME:NC. Thank you for this referral. Kenia Saba, PT, DPT, CLT [facility]
== END 2018-11-22 18:00 | disposition home health service (06) | DRG 641 ==
LOC: ER 14:24 → MS 11-18 07:31 → ICU 11-18 10:34
PROVIDERS: Nurse Practitioner; Nurse Practitioner Family; Admitting Provider Internal Medicine; Emergency Provider Student in an Organized Health Care Education/Training Program; PCP Family Medicine; Visit Provider Internal Medicine
DX: E87.1 Hypo-osmolality and hyponatremia (principal); A04.72 Enterocolitis due to Clostridium difficile, not specified as recurrent; B37.49 Other urogenital candidiasis; F10.230 Alcohol dependence with withdrawal, uncomplicated; E86.0 Dehydration; R62.7 Adult failure to thrive; F10.220 Alcohol dependence with intoxication, uncomplicated; Y90.5 Blood alcohol level of 100-119 mg/100 ml; D52.9 Folate deficiency anemia, unspecified; F17.210 Nicotine dependence, cigarettes, uncomplicated; M79.672 Pain in left foot; E03.9 Hypothyroidism, unspecified; B37.2 Candidiasis of skin and nail; I73.9 Peripheral vascular disease, unspecified; E78.5 Hyperlipidemia, unspecified; I10 Essential (primary) hypertension; S81.002A Unspecified open wound, left knee, initial encounter; S81.001A Unspecified open wound, right knee, initial encounter; S71.001A Unspecified open wound, right hip, initial encounter; S71.101A Unspecified open wound, right thigh, initial encounter; W19.XXXA Unspecified fall, initial encounter; G57.82 Other specified mononeuropathies of left lower limb; G62.9 Polyneuropathy, unspecified; Z71.3 Dietary counseling and surveillance; B36.9 Superficial mycosis, unspecified
CPT/HCPCS: 36415; 51702; 80048; 80053; 80076; 82550; 87077; 87505; 96360; 96361; 97110; 97162; 97530; 99223; 99232; 99239; 99285; 99291; J1650; 71045; 73060; 80320; 81003; 81015; 83630; 83735; 84295; 84443; 85025; 85610; 85730; 87086; 87186; 87324; 87798; 99220; 99284; G0378; J1450; J1941; J3475; J3480

== ENCOUNTER 2018-11-23 03:08 | Inpatient (IN) | payer BC, SELFPAY ==
[2018-11-23] VITALS (27 sets, daily range): BP systolic 92–134; BP diastolic 55–82; PULSE 88–126; RESP 2–30; TEMP 36.3–38.2; O2SAT 61–100
--- NOTE | 2018-11-23 03:16 | ED.GENADUL_ITS ---
Discharge Plan Disposition Patient Disposition: [facility] INPATIENT Condition: Poor Discharge Details Chief Complaint: GenMedical Clinical Impression: HCAP (healthcare-associated pneumonia), Hypomagnesemia, C. difficile colitis, Adult failure to thrive, Hypokalemia Primary Care Provider: Chidi Mccormack ED Provider: Gilmer Sommer Stephens Meds and New Rx's Prescriptions: No Action gabapentin 300 mg capsule 300 mg PO BID Qty: 90 RF: 11 diphenhydramine HCl [Benadryl] 25 MG capsule 25 mg PO DAILY PRNRF: 0 aspirin [Aspir-81] 81 MG tablet,delayed release (DR/EC) 81 mg PO DAILY RF: 0 metoprolol tartrate 50 mg tablet 50 mg PO BID Qty: 180 RF: 3 amlodipine 5 mg tablet 5 mg PO DAILY Qty: 90 RF: 3 levothyroxine 100 mcg tablet 100 mcg PO 0600 Qty: 90 RF: 3 acetaminophen [Tylenol] 325 mg Tablet 650 mg PO Q4H PRN PRNQty: 0 RF: 0 ipratropium-albuterol 0.5 mg-3 mg(2.5 mg base)/3 mL Solution For Nebulization 3 ml UPD Q6H PRN PRNQty: 0 RF: 0 zinc oxide 20 % Ointment 60 g topical TID Qty: 0 RF: 0 magnesium oxide 400 mg (241.3 mg magnesium) Tablet 800 mg PO BID Qty: 0 RF: 0 omeprazole 20 mg Capsule,Delayed Release(Dr/Ec) 20 mg PO DAILY@0730 Qty: 0 RF: 0 folic acid 1 mg Tablet 1 mg PO DAILY Qty: 0 RF: 0 clotrimazole 1 % Cream 60 g topical TID Qty: 0 RF: 0 vits A and D-white pet-lanolin Ointment 60 g topical TID Qty: 0 RF: 0 thiamine mononitrate (vit B1) [Vitamin B-1 (mononitrate)] 100 mg Tablet 100 mg PO DAILY Qty: 0 RF: 0 calcium carbonate 500 mg calcium (1,250 mg) tablet 500 mg PO BID Qty: 14 RF: 0 cyanocobalamin (vitamin B-12) 500 mcg lozenge 500 mcg PO DAILY Qty: 30 RF: 0 multivitamin tablet 1 tab PO DAILY Qty: 30 RF: 0 fluconazole 100 mg Tablet 100 mg PO DAILY Qty: 7 RF: 0 tramadol 50 mg Tablet 25 - 50 mg PO Q6H PRN PRN (Reason: Pain) Qty: 12 RF: 0 vancomycin 125 mg Capsule 125 mg PO Q6H Qty: 24 RF: 0 lidocaine [Lidoderm] 5 % Adhesive Patch,Medicated 1 patch topical DIRECTED Qty: 5 RF: 0 Medical Decision Making Patient was just discharged from this hospital this afternoon. She has back with inability to care for self, weakness, low oxygen saturations. She has some rhonchi and wheezing throughout. She was smoking at home. She is ordered for DuoNeb. I had been contacted by [facility] earlier this shift. Patient can be placed in sling level bed 1. I will get repeat BMP and CBC since he is been issues previously. Will get alcohol level as she admits to drinking once at home. 04:00 - Patient refuses Duoneb stating it is making her nauseated. Zofran given. Room air sats in the 80's so put on NC oxygen. Chest x-ray being read by radiology as new retro-cardiac infiltrate. CBC markedly different than one done yesterday. We will repeat to be sure not lab error. Chemistries with low potassium and magnesium which will be replaced orally. Presume new infiltrate is HCAP will cover with ceftazidime and Levaquin. Is on oral vancomycin for C. difficile. Case discussed with hospitalist. Will readmit to hospital as inpatient with diagnosis of healthcare acquired pneumonia, failure to thrive, electrolyte abnormalities. Medical Records Medical records reviewed: Yes I reviewed the patient's medical records. Lab Data Lab results reviewed: Yes I reviewed the patient's lab results. HPI General Mode of arrival: EMS . Date/Time Provider Initiated Documentation: 11/23/18 03:10 . Information obtained by: patient, EMS and old records reviewed . HPI Narrative: Patient arrives by EMS after being discharged from this hospital in the afternoon. She reports that she went home sat in her chair, smoked some cigarettes, drank a beer. She slid out of her chair onto the floor and had difficulty getting back up into it. I got a call from care management around 9 PM stating that family had called her saying patient was not doing well at home. I assumed patient would be coming in then but she did not call EMS until early this morning. She denies injury when she slid out of her chair. EMS reports that she was too weak to even really stand and pivot. Her O2 saturations are low. She complains of foot pain and diarrhea both of which were present at discharge. Related Data Home Medications Medication Instructions Recorded Confirmed diphenhydramine HCl [Benadryl] 25 mg PO DAILY PRN 08/14/16 11/23/18 aspirin [Aspir-81] 81 mg PO DAILY tab 11/02/16 11/23/18 gabapentin 300 mg capsule 300 mg PO BID #90 tab-cap 03/12/18 11/23/18 metoprolol tartrate 50 mg tablet 50 mg PO BID #180 tab 03/28/18 11/23/18 acetaminophen [Tylenol] 650 mg PO Q4H PRN PRN #0 tab 09/14/18 11/23/18 calcium carbonate 500 mg PO BID #14 tab 09/14/18 11/23/18 clotrimazole 60 g TOPICAL TID #0 g 09/14/18 11/23/18 cyanocobalamin (vitamin B-12) 500 mcg PO DAILY #30 each 09/14/18 11/23/18 folic acid 1 mg PO DAILY #0 tab 09/14/18 11/23/18 ipratropium-albuterol 3 ml UPD Q6H PRN PRN #0 ml 09/14/18 11/23/18 magnesium oxide 800 mg PO BID #0 tab 09/14/18 11/23/18 multivitamin 1 tab PO DAILY #30 tab 09/14/18 11/23/18 omeprazole 20 mg PO DAILY@0730 #0 cap 09/14/18 11/23/18 thiamine mononitrate (vit B1) 100 mg PO DAILY #0 tab 09/14/18 11/23/18 [Vitamin B-1 (mononitrate)] vits A and D-white pet-lanolin 60 g TOPICAL TID #0 g 09/14/18 11/23/18 zinc oxide 60 g TOPICAL TID #0 g 09/14/18 11/23/18 amlodipine 5 mg tablet 5 mg PO DAILY #90 tab 11/01/18 11/23/18 levothyroxine 100 mcg tablet 100 mcg PO 0600 #90 tab 11/01/18 11/23/18 fluconazole 100 mg PO DAILY #7 tab 11/22/18 11/23/18 lidocaine [Lidoderm] 1 patch TOPICAL DIRECTED #5 ea 11/22/18 11/23/18 tramadol 25 - 50 mg PO Q6H PRN PRN #12 tab 11/22/18 11/23/18 vancomycin 125 mg PO Q6H #24 cap 11/22/18 11/23/18 Previous Rx's Medication Instructions Recorded gabapentin 300 mg capsule 300 mg PO BID #90 tab-cap 03/12/18 metoprolol tartrate 50 mg tablet 50 mg PO BID #180 tab 03/28/18 acetaminophen [Tylenol] 650 mg PO Q4H PRN PRN #0 tab 09/14/18 calcium carbonate 500 mg PO BID #14 tab 09/14/18 clotrimazole 60 g TOPICAL TID #0 g 09/14/18 cyanocobalamin (vitamin B-12) 500 mcg PO DAILY #30 each 09/14/18 folic acid 1 mg PO DAILY #0 tab 09/14/18 ipratropium-albuterol 3 ml UPD Q6H PRN PRN #0 ml 09/14/18 magnesium oxide 800 mg PO BID #0 tab 09/14/18 multivitamin 1 tab PO DAILY #30 tab 09/14/18 omeprazole 20 mg PO DAILY@0730 #0 cap 09/14/18 thiamine mononitrate (vit B1) 100 mg PO DAILY #0 tab 09/14/18 [Vitamin B-1 (mononitrate)] vits A and D-white pet-lanolin 60 g TOPICAL TID #0 g 09/14/18 zinc oxide 60 g TOPICAL TID #0 g 09/14/18 amlodipine 5 mg tablet 5 mg PO DAILY #90 tab 11/01/18 levothyroxine 100 mcg tablet 100 mcg PO 0600 #90 tab 11/01/18 fluconazole 100 mg PO DAILY #7 tab 11/22/18 lidocaine [Lidoderm] 1 patch TOPICAL DIRECTED #5 ea 11/22/18 tramadol 25 - 50 mg PO Q6H PRN PRN #12 tab 11/22/18 vancomycin 125 mg PO Q6H #24 cap 11/22/18 Allergies Allergy/AdvReac Type Severity Reaction Status Date / Time hydrochlorothiazide Allergy Severe RASH Verified 11/04/18 13:48 morphine Allergy Severe stops Verified 11/04/18 13:48 breathing simvastatin Allergy Intermediate rash Verified 11/04/18 13:48 Penicillins Allergy Unknown unknown Verified 11/04/18 13:48 CANNABINOID Allergy Unknown Swelling/Ed Uncoded 11/04/18 13:48 hans General JOLENE: 3 Review of Systems Review of Systems 02/24 Review of Systems completed and is negative except as stated above in HPI (Systems reviewed: Const, Eyes, ENT, Resp, CV, GI, , MSK, Skin, Neuro) PFSH Social History Smoking/Tobacco Use Status: Current every day Alcohol Intake: current Alcohol Intake frequency: 0-2 drinks per day Alcohol type: beer and hard liquor Drug use: Never Substance use type: does not use Housing: apartment current occupation: not working at this time Pets and animals: Yes Pets and animals: cat(s) What type of physical activity do you participate in: none Duration: 15-30 minutes/day Frequency: 5-6 times per week Seatbelt use: always Drive intox or ride w/intox horse and wagon driver: No Working smoke detector in home: Yes Fire extinguisher in home: Yes Carbon monox detector in home: Yes Do you feel safe at home: Yes Do you feel safe in your relationship?: Yes Exam Narrative Exam Narrative: Vitals: Afebrile. Mild tachycardia with O2 saturations in the 80s on room air. Const: Thin, emaciated, elderly female in NAD. HEENT: NC/AT. Neck: Supple. Trachea midline. Lungs: Normal respiratory effort. Lungs with some scattered wheezing and rhonc hi. Cor: RRR without murmur/gallop. Mild tachycardia. Good radial pulses. GI: Soft. NT/ND. No guarding or rebound. Neuro: A+O x 3. CN grossly in tact. Generally weak throughout. Ext: No C/C/E. Skin: Cool and dry with some mottling and evidence of dry skin/erythema/yeast rash.
[2018-11-23 03:48] LABS: Anion Gap 10.5 mmol/L (3-11); BUN 5 mg/dL (7-18); CO2 24.5 mmol/L (21.0-32.0); CREATININE 0.27 mg/dL (0.55-1.02); Calcium 8.4 mg/dL (8.5-10.1); Chloride 92 mmol/L (98-107); ETHANOL BLOOD 23.7 mg/dL (<3); Glucose 74 mg/dL (70-100); Magnesium 1.3 mg/dL (1.8-2.4); Potassium 3.3 mmol/L (3.5-5.1); Sodium 127 mmol/L (136-145)
--- NOTE | 2018-11-23 03:52 | DI.RAD_ITS ---
SYMPTOM/DIAGNOSIS: LOW O2 SATS PORTABLE AP CHEST: Comparison is made with 11/18/18. Since the prior examination, there has developed a retrocardiac infiltrate on the left and a small left pleural effusion. The right lung shows no focal infiltrates or effusion. Heart size and pulmonary vasculature are within normal limits. The lungs appear hyperinflated suggesting underlying COPD. IMPRESSION: Left retrocardiac infiltrate. This may represent pneumonia or atelectasis. Small left pleural effusion.
[2018-11-23] MEDS: Normal Saline Flush 10 ML SYR IVP ×6 (03:55→18:35)
[2018-11-23] MEDS: Ondansetron 4 MG/2 ML VIAL IVP (03:58)
[2018-11-23 04:08] LABS: Absolute Lymphocyte Count 0.12 k/cumm (1.2-3.4); Absolute Monocyte Count 0.02 k/cumm (0.11-0.7); Absolute Neutrophil Count 1.63 k/cumm (1.2-6.7); HCT 34.3 % (36.0-46.0); HGB 11.6 g/dL (12.0-15.5); Lymphocytes % 6.8; Mean Corp. HGB Concentration 33.8 g/dL (32.0-36.0); Mean Corpuscular Hemoglobin 35.2 pg (27.0-33.0); Mean Corpuscular Volume 103.9 fL (80-95); Mean Platelet Volume 9.4 fL (8.0-11.0); Monocytes % 1.1; Neutrophils % 92.1; Platelet Count 265 x1000/uL (130-400); RBC Distribution Width 13.7 % (11.7-14.6)
[2018-11-23 04:09] LABS: White Blood Cell Count 1.77 k/cumm (4.4-10.8)
[2018-11-23] MEDS: Potassium Chloride 20 MEQ TABCR PO (04:24)
[2018-11-23] MEDS: Magnesium Oxide 400 MG TAB 800 MG PO ×3 (04:24→19:46)
[2018-11-23] MEDS: cefTAZidime 2,000 MG in Normal Saline 100 ML 200 MG IVPB (04:40)
[2018-11-23 04:41] LABS: Abs Immature Grans 0.01 k/cumm (0.0-0.09); HCT 33.4 % (36.0-46.0); HGB 11.1 g/dL (12.0-15.5); Mean Corp. HGB Concentration 33.2 g/dL (32.0-36.0); Mean Corpuscular Hemoglobin 34.5 pg (27.0-33.0); Mean Corpuscular Volume 103.7 fL (80-95); Mean Platelet Volume 9.3 fL (8.0-11.0); Platelet Count 259 x1000/uL (130-400); RBC 3.22 m/cumm (4.00-5.20); RBC Distribution Width 13.7 % (11.7-14.6); White Blood Cell Count 4.03 k/cumm (4.4-10.8)
--- NOTE | 2018-11-23 04:56 | HPE_ITS ---
Date of service: 11/23/18 Time of Service: 04:56 Assessment and Plan (1) Pneumonia: Current visit: Yes Status: Acute HCAP and COPD, all in setting of inability to care for self, and continued alcohol use. Agree antibiotics (Ceftaz, levaquin), will treat COPD with updrafts and steroids, and continue to replace and monitor electrolytes. Will also complete course of PO Vanco for known C. diff. The marrked leukopenia is noted, new since only earlier in day; this is being repeated to confirm.. If persists (not lab error) will work up further. 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 Unable to manage at home, slid out of chair and summoned EMS. In ER findings of note for O2 sats in 80s, wheezing, new infiltrate, and low Mg and K, which were supplemented orally. Admitted for further management. Review of Systems Review of Systems All systems reviewed & are unremarkable except as noted in HPI and below PFSH Medical History Arterial occlusive disease (Chronic 12/04/16) Continuous chewing tobacco dependence (Inactive 01/22/12) COPD (chronic obstructive pulmonary disease) (Suspected) Essential hypertension (Chronic 01/22/12) Foot pain, left (Chronic 12/04/16) Hyperlipidemia (Chronic 08/21/12) Hyperlipidemia (Chronic 08/21/12) Hypothyroidism (Chronic) Neuropathy (Chronic 12/07/16) Social History Smoking/Tobacco Use Status: Current every day Alcohol Intake: current Alcohol Intake frequency: 0-2 drinks per day Alcohol type: beer and hard liquor Drug use: Never Substance use type: does not use Housing: apartment current occupation: not working at this time Pets and animals: Yes Pets and animals: cat(s) What type of physical activity do you participate in: none Duration: 15-30 minutes/day Frequency: 5-6 times per week Seatbelt use: always Drive intox or ride w/intox cpr ambulance driver: No Working smoke detector in home: Yes Fire extinguisher in home: Yes Carbon monox detector in home: Yes Do you feel safe at home: Yes Do you feel safe in your relationship?: Yes Meds Home Medications Medication Instructions Recorded Confirmed Type diphenhydramine HCl [Benadryl] 25 mg PO DAILY PRN 08/14/16 11/23/18 History aspirin [Aspir-81] 81 mg PO DAILY tab 11/02/16 11/23/18 History gabapentin 300 mg capsule 300 mg PO BID #90 tab-cap 03/12/18 11/23/18 Rx metoprolol tartrate 50 mg tablet 50 mg PO BID #180 tab 03/28/18 11/23/18 Rx acetaminophen [Tylenol] 650 mg PO Q4H PRN PRN #0 tab 09/14/18 11/23/18 Rx calcium carbonate 500 mg PO BID #14 tab 09/14/18 11/23/18 Rx clotrimazole 60 g TOPICAL TID #0 g 09/14/18 11/23/18 Rx cyanocobalamin (vitamin B-12) 500 mcg PO DAILY #30 each 09/14/18 11/23/18 Rx folic acid 1 mg PO DAILY #0 tab 09/14/18 11/23/18 Rx ipratropium-albuterol 3 ml UPD Q6H PRN PRN #0 ml 09/14/18 11/23/18 Rx magnesium oxide 800 mg PO BID #0 tab 09/14/18 11/23/18 Rx multivitamin 1 tab PO DAILY #30 tab 09/14/18 11/23/18 Rx omeprazole 20 mg PO DAILY@0730 #0 cap 09/14/18 11/23/18 Rx thiamine mononitrate (vit B1) 100 mg PO DAILY #0 tab 09/14/18 11/23/18 Rx [Vitamin B-1 (mononitrate)] vits A and D-white pet-lanolin 60 g TOPICAL TID #0 g 09/14/18 11/23/18 Rx zinc oxide 60 g TOPICAL TID #0 g 09/14/18 11/23/18 Rx amlodipine 5 mg tablet 5 mg PO DAILY #90 tab 11/01/18 11/23/18 Rx levothyroxine 100 mcg tablet 100 mcg PO 0600 #90 tab 11/01/18 11/23/18 Rx fluconazole 100 mg PO DAILY #7 tab 11/22/18 11/23/18 Rx lidocaine [Lidoderm] 1 patch TOPICAL DIRECTED #5 ea 11/22/18 11/23/18 Rx tramadol 25 - 50 mg PO Q6H PRN PRN #12 tab 11/22/18 11/23/18 Rx vancomycin 125 mg PO Q6H #24 cap 11/22/18 11/23/18 Rx Allergies Allergy/AdvReac Type Severity Reaction Status Date / Time hydrochlorothiazide Allergy Severe RASH Verified 11/04/18 13:48 morphine Allergy Severe stops Verified 11/04/18 13:48 breathing simvastatin Allergy Intermediate rash Verified 11/04/18 13:48 Penicillins Allergy Unknown unknown Verified 11/04/18 13:48 CANNABINOID Allergy Unknown Swelling/Ed Uncoded 11/04/18 13:48 hans Exam Narrative Exam Narrative: Tmax 37.8, 115/78, 108, 20, 86%. Looks cachectic and chronically ill. HEENT atraumatic; neck supple; lungs diffuse wheeze, heart distant tachy/regular; abdomen soft NT; extremities no edema Results Labs : 11/23/18 03:28 11/23/18 03:28 Laboratory Results - last 24 hr 11/23/18 11/23/18 03:28 03:28 WBC 1.77 L* D RBC 3.30 L Hgb 11.6 L D Hct 34.3 L D MCV 103.9 H MCH 35.2 H MCHC 33.8 RDW 13.7 Plt Count 265 MPV 9.4 Immature Gran % 0.0 Neutrophils % 92.1 Lymphocytes % 6.8 Monocytes % 1.1 Eosinophils % 0.0 Basophils % 0.0 Absolute Neutrophils 1.63 Absolute Lymphocytes 0.12 L Absolute Monocytes 0.02 L Absolute Eosinophils 0.00 Absolute Basophils 0.00 Sodium 127 L Potassium 3.3 L Chloride 92 L Carbon Dioxide 24.5 Anion Gap 10.5 BUN 5 L Creatinine 0.27 L Estimated GFR/1.73 m2 >= 60.00 Glucose 74 Calcium 8.4 L Magnesium 1.3 L Ethyl Alcohol 23.7 Last Vital Signs Temp 36.3 C L 11/23/18 03:09 Pulse 109 H 11/23/18 03:55 Resp 20 11/23/18 03:55 BP 115/78 11/23/18 03:16 Pulse Ox 86 L 11/23/18 04:43
[2018-11-23 05:06] LABS: Absolute Neutrophil Count 3.91 k/cumm (1.2-6.7); Atypical Lymphocytes % 0
[2018-11-23 05:07] LABS: Diff Comment Manual Differential
[2018-11-23] MEDS: Levothyroxine 100 MCG TAB PO (06:37)
[2018-11-23] MEDS: Vancomycin 125 MG CAP PO ×4 (06:37→23:57)
[2018-11-23] MEDS: methylPREDNISolone SUCC 40 MG VIAL IVP (06:38)
[2018-11-23] MEDS: levoFLOXacin 750 MG/150 ML BAG 100 MG IVPB (06:47)
[2018-11-23] MEDS: Albuterol/Ipratropium 3 ML UPD VIAL UPD ×4 (06:59→23:57)
[2018-11-23 07:55] LABS: BE 0.7 mmol/L (-3-3); HCO3 24 mmol/L (22-28); pCO2 31 mmHg (34-47); pO2 42 mmHg (83-108); sO2 83 % (94-98); tCO2 22 mmol/L (22-29)
[2018-11-23 07:57] LABS: FIO2L 3 L; Site Right Radial
[2018-11-23 08:04] LABS: Anion Gap 10.9 mmol/L (3-11); CO2 23.1 mmol/L (21.0-32.0); Chloride 90 mmol/L (98-107); Potassium 3.7 mmol/L (3.5-5.1)
[2018-11-23 08:07] LABS: Sodium 124 mmol/L (136-145)
--- NOTE | 2018-11-23 08:07 | PDOC.CMIN ---
- If Service Date Differs Date of service: 11/23/18 Time of Service: 08:08 Care Management Initial Assess REASON FOR HOSPITALIZATION:: Pneumonia PAST MEDICAL HISTORY/PAST SURGICAL HISTORY:: Medical History: Arterial occlusive disease (Chronic 12/04/16). Continuous chewing tobacco dependence (Inactive 01/22/12). COPD (chronic obstructive pulmonary disease) (Suspected). Essential hypertension (Chronic 01/22/12). Foot pain, left (Chronic 12/04/16). Hyperlipidemia (Chronic 08/21/12). Hyperlipidemia (Chronic 08/21/12). Hypothyroidism (Chronic). Neuropathy (Chronic 12/07/16) PREVIOUS FUNCTIONAL STATUS/SOCIAL/FAMILY SUPPORTS:: Susanne lives alone in a first floor apt. in [place]. She has been failing for some time without successful community intervention. She is no longer able to safely care for herself, as evidenced by multiple pressure sores and unkept condition present on last admission. 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 CURRENT FUNCTIONAL STATUS:: Susanne was dozing when CM came to visit. She seemed a little confused and stated that she was not sure that she had even gone home yesterday when questioned. She said she feels terrible and is having difficulty breathing. Early this morning her saturation level was only 87 but this afternoon it has remained above 95 on 5l of oxygen. ADVANCE DIRECTIVES:: None on file Has patient been provided with information about the portal?: No Did the patient sign up for the portal?: No CODE STATUS:: Full Code INSURANCE COVERAGE / FINANCIAL ISSUES:: BS CURRENT HOME/COMMUNITY SERVICES/EQUIPMENT:: Had been set up with home health SN, OT,PT, EXPORT SALES MANAGER but readmitted before services were initiated PRIMARY CARE PHYSICIAN:: Chidi Mccormack POTENTIAL DISCHARGE NEEDS:: Susanne will likely need chcf placement PATIENT/FAMILY EDUCATION NEEDS:: Discharge plan, limitations, follow up plan, Ask me Three. ANTICIPATED BARRIERS TO DISCHARGE:: Finding a safe environment for Susanne and securing a payer source TRANSPORTATION:: to be determined by ultimate discharge plan PLAN:: Susanne is receiving IV antibiotics and IV fluids for pneumonia. She remains acute level of care. At this time, the discharge plan is unclear due to Susanne's declining ability to safely manage her own care at home. CM will continue to support susanne and her discharge planning needs. Readmission - Within the Past 30 Days Yes or No: Y - Date of First Admission Date of 1st Admission: 11/18/18 - Date of this Admission Date of Admission: 11/23/18 This admission was: Through ED - Office Visit Since 1st Admission Have you seen your PCP in the office since discharge?: No - Speicalist Appointments Have you seen any other specialist since your 1st Admission?: No - I. Interview patient and/or Family Difficulty reaching your doctor or getting an office appt?: No Have you had trouble purchasing/ or taking medication?: No Have you had trouble with getting meals at home?: No Did you feel ready for discharge when you left the last time: No Why did you not feel ready for discharge?: I felt weak Were services received that you thought were set up on disch: No Why weren't services received?: Susanne had only been home for a few hours and services were scheduled to begin on 11/23/18 Did you call your physician beore you came to the ED?: No - Ask the Care Team Members: What do you think caused the patient to be readmitted: When Susanne left the hospital, she went home and began drinking and smoking cigarettes. It is possible that she aspirated. - ED visits How many ED visits in the past 12 months: 7 - Assessment for Readmission Summary of readmission circumstances, based upon interviews: Susanne was discharged home at approximately 6 pm on 11/22/18. She was found by a neighbor a few hours later intoxicated and on the floor. She was brought to the hospital and was found to have probable pneumonia.
[2018-11-23 08:20] LABS: Lactate-non-spesis 1.4 mmol/l (0.6-1.4)
[2018-11-23 08:58] LABS: Procalcitonin 11.8 ng/mL
[2018-11-23] MEDS: Calcium Carbonate 1.25 GM TAB PO ×2 (09:20→19:46)
[2018-11-23] MEDS: Cyanocobalamin 500 MCG TAB PO (09:20)
[2018-11-23] MEDS: Gabapentin 300 MG CAP PO ×2 (09:20→19:46)
[2018-11-23] MEDS: Clotrimazole 1% 15 GM TUBE TP ×3 (09:20→19:56)
[2018-11-23] MEDS: Omeprazole 20 MG CAPCR PO (09:20)
[2018-11-23] MEDS: Folic Acid 1 MG TAB PO (09:21)
[2018-11-23] MEDS: Thiamine 100 MG TAB PO (09:21)
[2018-11-23] MEDS: Fluconazole 100 MG TAB PO (09:21)
[2018-11-23] MEDS: Aspirin E.C. 81 MG TABEC PO (09:21)
[2018-11-23] MEDS: MAGNESIUM SULFATE 4 GM/100 ML BAG IVPB (10:28)
--- NOTE | 2018-11-23 10:48 | PT.INTREAT ---
Date of service: 11/23/18 Time of Service: 10:30 PT Notes Inpatient Physical Therapy Treatment Note [facility] Date: 11/23/18 PRECAUTIONS:C-Diff ETOH SUBJECTIVE: Pt reports that she is very sore today and that she does not want to get out of bed but will complete some exercises in bed. OBJECTIVE: [ GAIT THEREX: Pt completed UE and LE ther ex as per flow sheet. Pt did require some assist at time with her extremities with some of her ther ex. Please see flow sheet for specifics. ASSESSMENT: Pt fatigued very quickly today and did require some assist with her ther ex. Will monitor pt's repsonse to today's session and progress accordingly. PLAN: Cont as per PT POC. TREATMENT CODE/TIME: 10:30-10:42 (12) TP
[2018-11-23] MEDS: methylPREDNISolone SUCC 125 MG VIAL 80 MG IVP ×2 (10:57→18:35)
[2018-11-23] MEDS: Budesonide/Formoterol 160/4.5 6 GM 60 PUFF INH IH ×2 (10:58→19:56)
[2018-11-23] MEDS: Cholestyramine/Aspartame PKT 1 EACH PO ×2 (11:28→18:34)
--- NOTE | 2018-11-23 11:38 | PHARADMIT ---
Addendum entered by Maya Mcgrath 11/26/18 10:36: Pharmacy Note Subjective nursing notes stool may be coming from vagina vs rectum Objective Na still low but improving, Assessment vancomycin Iv stopped, vanco PO, fluconazole po, levofloxacin IV, solu medrol Iv continue, Psych consult ordered Plan watch for abx change to PO vs stop Addendum entered by Elijah Joseph III 11/25/18 16:06: Pharmacy Note Subjective Pneumonia improved, diarrhea resolved. Patientdecision making capacity called into question. Objective VS-OK pain:02/20 Na-131 K+3.3 WBC- 14.46 H&H-8.3/24.6 CIWA-4 Assessment Levaquin,. Rocephin iv continue, steroids tapering.Mattie dc'd Plan Psych consult ordered to at CM request as patient will be difficult to place, but can not be returned to home. Addendum entered by Maryam Tolliver 11/24/18 15:48: Blood no growth x24h, Afebrile x24h, resume NS (Na++ 126), decreasing steroids, Heparin SC added added Rocephin to regimen because Procalcitonin level is >14 today, WBC up 19.5 Vanco trough for 5pm tonight...notified [facility] after hours to please adjust interval if >20 On Vanco, Levaquin, Rocephin, oral Vanco, oral Fluconazole Original Note: Pharmacy Note Subjective failure to thrive at home, returned home yesterday to continue smoking and drinking alcohol, fell goal of 88% for her Sats Objective Temp 37.9, pain 10, HR 125, SCr 0.27 Na++ 124, K+ 3.7, Mag 1.3 repeat Micro blood: pending Urine: was positive in previous cultures >100K gram negative Assessment Mag 4gram IV x1, Magox 800mg BID (worsens diarrhea) Not directly treating low sodium...it will recover on it's own Lidocaine patch on L foot, Gabapentin No DVT prophylaxis ordered-will let MD know Duelvira scheduled, Symbicort, IV Solumedrol Questran, Acidophilus, Vanco oral for diarrhea/C.Diff d/c Omeprazole, changed to Famotidine Anbx: Levaquin IV for urine, Vanco IV started today for HCAP/?MRSA Lorazepam for CIWA Metoprolol has hold parameters Plan check Micro, Anbx coverage, CIWA ?air conditioning engineer placement NOTES FROM BELOW FROM DISCHARGE DATE 11/22/18-READMITTED AFTER ONLY 12 HOURS 11/18/18 10:59 - Pharmacy Review by Elijah Joseph III [facility] Num: [id number] : 1960 Patient Age: 58 Addendum entered by Elijah Joseph III 11/21/18 10:41: Pharmacy Note Subjective Hospitalist remarked that if patients continues her current improvement ,she may be discharged to [facility] pending referral. Patient complains of foot pain, seen by today. He notes that she will need to follow up with an outpatient neurology consult. Objective VS-OK pain:10 (foot) Na-127 K+3.5 Mag-1.7 H&H-8.5/25.7 (down) Wgt-38.8 kg (BM today Assessment KCL PO bolus given Plan Awaiting CM referral to [facility]. Sodium is up. Possible discharge later today. Addendum entered by Maryam Tolliver 11/20/18 14:21: Pharmacy Note Subjective Pain in left foot and right arm Objective VS ok, pain 02/20, CIWA zero, weight up 2.4kg overnight Na++ 122, K+ 4.3, Mag 1.3 C.Diff positive Antigen, negative toxin Assessment Mag 2gram IV x 2 runs in addition to MagOx 800mg po BID Lost IV access, retimed the second bag of Mag 2gram once new line started Normal saline was stopped yesterday, restarted today @ 100ml/hr No diarrhea or any stools recorded today, less frequent yesterday APAP and Tramadol for pain Lovenox for DVT prophylaxis Plan Transfer to /, follow Na++ and Mag Addendum entered by Bianca Herrera 11/19/18 12:20: Pharmacy Note Subjective Improving overall (more alert since oxazepam dc'd) Objective NA 125 (down from 128 on 11/18) Stool culture positive for lactoferrin Assessment Will transfer back to [place] from ICU Started PO vanco due to stool culture Continue PO fluconazole for fungal dermatitis Plan Continue to monitor sodium, loose stools, wound management Original Note: Admission Pharmacy Clinical Review HYPONATREMIA, DEHYDRATION,SKIN ULCES, FAILURE TO THRIVE Code Status Full Code Current Weight Wgt-40.9 kg Renally Cleared and Narrow Therapeutic Index Meds CrCl~ 48.28 mL/min Meds-OK QTc Value / Action Taken NONE CURRENT BP Control, Fever BP- 93/66 Tmax- 38.8C Electrolytes reviewed Na- 128 K+3.3 Mag- 2.3 DVT Prophylaxis Lovenox 40mg Opiate Usage / Scheduled Bowel Regimen Ordered No No Plt/SCr for Heparin / Enoxaparin Plts-105 SCr- 0.43 INR for Warfarin inr-1.0 H/H stable, WBC/Bands H&H- 9.5/27.4 WBC- 5.92 Antibiotic appropriateness Diflucan, Cultures and Sensitivities C-Diff ANTIGEN (+) toxin (-) Surgical ABX d/c within 24 hr NA DM control / Insulin Dosing BG-75 Heart Failure (Check EF%) (MERLENE's, B-Block, Diuretics) Norvasc, ASA, Lopressor, IV to PO Switch No Home Meds Reviewed Yes Home Meds Not Ordered Gabapentin, Macrobid, A&D Oint, Zinc Oxide Comments ETOH-114.4 on CIWA protocol
[2018-11-23 12:50] LABS: Anion Gap 7.8 mmol/L (3-11); BUN 5 mg/dL (7-18); CO2 23.2 mmol/L (21.0-32.0); CREATININE 0.42 mg/dL (0.55-1.02); Calcium 7.4 mg/dL (8.5-10.1); Chloride 88 mmol/L (98-107); Glucose 126 mg/dL (70-100); Potassium 4.1 mmol/L (3.5-5.1)
[2018-11-23 13:15] LABS: Sodium 119 mmol/L (136-145)
[2018-11-23] MEDS: Lactobacillus Acidophilus CAP 1 CAP PO ×2 (13:57→19:46)
--- NOTE | 2018-11-23 15:00 | W.PM.PROGNOT ---
Date of Service Date of service: 11/23/18 Time of Service: 15:00 Assessment and Plan (1) Acute respiratory failure with hypoxia: Current visit: Yes Status: Acute Likely due to combination of HCAP and acute exacerbation of COPD. Treat underlying disease. Patient is full code, but refuses transfer to ICU at this time. Wean O2 as tolerated. (2) HCAP (healthcare-associated pneumonia): Current visit: Yes Status: Acute Abx changed to vancomycin/levofloxacin; fortaz d/c'ed. Blood cultures collected; sputum C&S ordered. (3) COPD with acute exacerbation: Current visit: Yes Status: Acute Scheduled IV steroids, nebs, symbicort. As above (4) Hyponatremia: Current visit: No Status: Chronic This is worse than when she first arrived. In addition to beer potomania, the patient likely does have dehydration - she seems to have previously responded to NS. This was reinitiated gently - will monitor sodiums Q6 hrs. The patient specifically refused transfer to ICU. (5) C. difficile colitis: Current visit: No Status: Acute Patient states she no longer has diarrhea. I changed her PPI to H2 boyd and added probiotics. Questran added with holding parameters if no BM x 24 hrs. (6) Alcohol use: Current visit: No Status: Acute Monitor on CIWA. (7) Failure to thrive: Current visit: No Status: Acute Case management to assist with placement on discharge (8) DVT prophylaxis: Current visit: No Status: Acute heparin SQ (9) Discharge planning issues: Current visit: No Status: Acute Full code Refuses transfer to ICU at this time. Subjective Interval history since last seen: Ms Leon states she has a headache. She denies dizziness, chest pain. Reports shortness of breath, but thinks it is somehow related to her mouth being dry. Denies nausea, vomiting, abdominal pain, diarrhea. When I talk to her about her sodium being low again and her needing to go to the ICU, she adamantly refuses. She states she would only want to go there if something bad actually did happen. She would still like to remain full code. She was quite hypoxic this morning, requiring her O2 to be increased to 6L - she was now weaned to 5L, saturating 96%. Exam Narrative Exam Narrative: General: Frail middle-aged female, somnolent, easily arousable, A&Ox2-3 (knows it's November 23, but does not know day of the week and has difficulty telling the year, knows the president). HEENT: EOMI, dry MM Heart: RRR, tachycardic Lungs: Diminished breath sounds B GI: abdomen is soft, nontender, nondistended Extremities: No e/c/c BLE's Objective Objective Clinical Data: Abnormal lab results 11/23/18 11/23/18 11/23/18 Range/Units 03:28 03:28 04:30 WBC 1.77 L* D 4.03 L D (4.4-10.8) k/cumm RBC 3.30 L 3.22 L (4.00-5.20) m/cumm Hgb 11.6 L D 11.1 L (12.0-15.5) g/dL Hct 34.3 L D 33.4 L (36.0-46.0) % MCV 103.9 H 103.7 H (80-95) fL MCH 35.2 H 34.5 H (27.0-33.0) pg Absolute Lymphocytes 0.12 L 0.00 L (1.2-3.4) k/cumm Absolute Monocytes 0.02 L 0.00 L (0.11-0.7) k/cumm pCO2 (34-47) mmHg pO2 (83-108) mmHg O2 Saturation (94-98) % ABG pH (7.35-7.45) Sodium 127 L (136-145) mmol/L Potassium 3.3 L (3.5-5.1) mmol/L Chloride 92 L (98-107) mmol/L BUN 5 L (7-18) mg/dL Creatinine 0.27 L (0.55-1.02) mg/dL Glucose (70-100) mg/dL Calcium 8.4 L (8.5-10.1) mg/dL Magnesium 1.3 L (1.8-2.4) mg/dL 11/23/18 11/23/18 11/23/18 Range/Units 07:28 07:57 12:25 WBC (4.4-10.8) k/cumm RBC (4.00-5.20) m/cumm Hgb (12.0-15.5) g/dL Hct (36.0-46.0) % MCV (80-95) fL MCH (27.0-33.0) pg Absolute Lymphocytes (1.2-3.4) k/cumm Absolute Monocytes (0.11-0.7) k/cumm pCO2 31 L (34-47) mmHg pO2 42 L (83-108) mmHg O2 Saturation 83 L (94-98) % ABG pH 7.50 H (7.35-7.45) Sodium 124 L* 119 L* (136-145) mmol/L Potassium (3.5-5.1) mmol/L Chloride 90 L 88 L (98-107) mmol/L BUN 5 L (7-18) mg/dL Creatinine 0.42 L (0.55-1.02) mg/dL Glucose 126 H (70-100) mg/dL Calcium 7.4 L (8.5-10.1) mg/dL Magnesium (1.8-2.4) mg/dL Vital Signs Temperature 37.9 C H 11/23/18 07:15 Temperature Source Skin 11/23/18 07:15 Pulse 118 H 11/23/18 12:02 Pulse Rhythm Regular 11/23/18 05:39 Pulse 111 H 11/23/18 03:20 Respiratory Rate 22 11/23/18 07:20 Respiratory Effort Incrsd Work of Breathing 11/23/18 05:39 Respiratory Depth Deep 11/23/18 05:39 Respiratory Pattern Normal 11/23/18 05:39 Blood Pressure 108/74 11/23/18 07:15 Blood Pressure Mean 87 11/23/18 03:16 Pulse Oximetry 96 11/23/18 12:02 Oxygen Delivery Method Nasal Cannula 11/23/18 12:02 Oxygen Flow Rate 5 11/23/18 12:02 Pain Level 10 11/23/18 07:15 Intake & Output 11/22/18 11/23/18 11/23/18 23:59 11:59 23:59 Intake Total 1050 / 1050 Balance 1050 / 1050 Weight 39.9 kg Intake: IV 250 / 250 Oral 800 / 800 Other: Comment INCONTINENT X 2 SINCE ARRIVING ON M/S Stool Size Small Stool Characteristics Liquid Voiding Methods Incontinent Laboratory Results WBC 4.03 k/cumm (4.4-10.8) L D 11/23/18 04:30 RBC 3.22 m/cumm (4.00-5.20) L 11/23/18 04:30 Hgb 11.1 g/dL (12.0-15.5) L 11/23/18 04:30 Hct 33.4 % (36.0-46.0) L 11/23/18 04:30 MCV 103.7 fL (80-95) H 11/23/18 04:30 MCH 34.5 pg (27.0-33.0) H 11/23/18 04:30 MCHC 33.2 g/dL (32.0-36.0) 11/23/18 04:30 RDW 13.7 % (11.7-14.6) 11/23/18 04:30 Plt Count 259 x1000/uL (130-400) 11/23/18 04:30 MPV 9.3 fL (8.0-11.0) 11/23/18 04:30 Immature Gran % 0.0 11/23/18 04:30 34.0 11/23/18 04:30 63.0 % 11/23/18 04:30 0.0 11/23/18 04:30 Atypical Lymphs % 0 11/23/18 04:30 0.0 11/23/18 04:30 0.0 11/23/18 04:30 0.0 11/23/18 04:30 Absolute Neutrophils 3.91 k/cumm (1.2-6.7) 11/23/18 04:30 Absolute Lymphocytes 0.00 k/cumm (1.2-3.4) L 11/23/18 04:30 Absolute Monocytes 0.00 k/cumm (0.11-0.7) L 11/23/18 04:30 Absolute Eosinophils 0.00 k/cumm (0.0-0.7) 11/23/18 04:30 Absolute Basophils 0.00 k/cumm (0.0-0.2) 11/23/18 04:30 Manual differential 11/23/18 04:30 RBC Morphology See below 11/23/18 04:30 2+ 11/23/18 04:30 Sample Site Right radial 11/23/18 07:57 pCO2 31 mmHg (34-47) L 11/23/18 07:57 pO2 42 mmHg (83-108) L 11/23/18 07:57 O2 Saturation 83 % (94-98) L 11/23/18 07:57 ABG pH 7.50 (7.35-7.45) H 11/23/18 07:57 ABG HCO3 24 mmol/L (22-28) 11/23/18 07:57 ABG Total CO2 22 mmol/L (22-29) 11/23/18 07:57 ABG Base Excess 0.7 mmol/L (-3-3) 11/23/18 07:57 Oxygen Liter Flow 3 L 11/23/18 07:57 Sodium 119 mmol/L (136-145) L* 11/23/18 12:25 Potassium 4.1 mmol/L (3.5-5.1) 11/23/18 12:25 Chloride 88 mmol/L (98-107) L 11/23/18 12:25 Carbon Dioxide 23.2 mmol/L (21.0-32.0) 11/23/18 12:25 7.8 mmol/L (3-11) 11/23/18 12:25 BUN 5 mg/dL (7-18) L 11/23/18 12:25 0.42 mg/dL (0.55-1.02) L 11/23/18 12:25 >= 60.00 (mL/min/1.73m2) 11/23/18 12:25 Glucose 126 mg/dL (70-100) H 11/23/18 12:25 1.4 mmol/l (0.6-1.4) 11/23/18 07:28 Calcium 7.4 mg/dL (8.5-10.1) L 11/23/18 12:25 Magnesium 1.3 mg/dL (1.8-2.4) L 11/23/18 03:28 11.8 ng/mL 11/23/18 07:28 Ethyl Alcohol 23.7 mg/dL (<3) 11/23/18 03:28
[2018-11-23] MEDS: Heparin 5,000 UNITS/ML VIAL 5000 UNITS SC (16:50)
[2018-11-23] MEDS: Acetaminophen 325 MG TAB 650 MG PO (16:50)
[2018-11-23 17:26] LABS: Anion Gap 6.2 mmol/L (3-11); BUN 7 mg/dL (7-18); CO2 25.8 mmol/L (21.0-32.0); CREATININE 0.44 mg/dL (0.55-1.02); Chloride 90 mmol/L (98-107); Glucose 123 mg/dL (70-100); Potassium 4.1 mmol/L (3.5-5.1)
[2018-11-23 17:44] LABS: Sodium 122 mmol/L (136-145)
[2018-11-23] MEDS: Famotidine 20 MG TAB PO (19:46)
[2018-11-23] MEDS: Lidocaine 5% Patch 1 PATCH TP (19:46)
[2018-11-23] MEDS: Normal Saline 1,000 ML 75 ML IV (19:58)
[2018-11-23] MEDS: VANCOMYCIN 750 MG in Normal Saline 250 ML 166.667 MG IV (22:15)
[2018-11-24] VITALS (14 sets, daily range): BP systolic 96–130; BP diastolic 49–80; PULSE 68–103; RESP 1–20; TEMP 35.8–37; O2SAT 92–99
--- NOTE | 2018-11-24 00:40 | NUR.NOTE ---
asked MD about giving pt both oral and IV Vancomycin, said it was okay to give both. oral given at 0000 and Iv given at 2200.
[2018-11-24 00:52] LABS: Anion Gap 7.9 mmol/L (3-11); BUN 8 mg/dL (7-18); CO2 24.1 mmol/L (21.0-32.0); Calcium 8.1 mg/dL (8.5-10.1); Chloride 95 mmol/L (98-107); Glucose 144 mg/dL (70-100); Potassium 4.3 mmol/L (3.5-5.1); Sodium 127 mmol/L (136-145)
[2018-11-24] MEDS: methylPREDNISolone SUCC 125 MG VIAL 80 MG IVP (02:12)
[2018-11-24] MEDS: Heparin 5,000 UNITS/ML VIAL 5000 UNITS SC ×2 (04:03→15:37)
[2018-11-24] MEDS: Acetaminophen 325 MG TAB 650 MG PO ×3 (04:03→20:53)
[2018-11-24] MEDS: Levothyroxine 100 MCG TAB PO (06:03)
[2018-11-24] MEDS: Vancomycin 125 MG CAP PO ×4 (06:03→23:49)
[2018-11-24] MEDS: levoFLOXacin 500 MG/100 ML BAG 100 MG IVPB (06:03)
[2018-11-24] MEDS: Albuterol/Ipratropium 3 ML UPD VIAL UPD ×3 (06:03→23:50)
[2018-11-24 08:09] LABS: Anion Gap 7.1 mmol/L (3-11); BUN 9 mg/dL (7-18); CO2 24.9 mmol/L (21.0-32.0); CREATININE 0.38 mg/dL (0.55-1.02); Calcium 8.1 mg/dL (8.5-10.1); Chloride 94 mmol/L (98-107); Glucose 169 mg/dL (70-100); Magnesium 2.1 mg/dL (1.8-2.4); Potassium 4.2 mmol/L (3.5-5.1); Sodium 126 mmol/L (136-145)
--- NOTE | 2018-11-24 08:20 | PDOC.CMPRO ---
Care Management Progress Note S/O: CM coordinated sustainability coach for Bianca Garza arrived-CM provided case review-discussion central to possible BR placement. Bianca then met with Kayla-she reported she would return tomorrow and shared that Kayla was challenging during their interaction and was projecting and deflecting and denied alcohol abuse. When CM entered Kayla's room she requested pain medicine and reported she had been waiting and was in pain. CM notified Rekha ZELAYA and Maryann RNCC who were aware of Kayla's request. CM notified Dr. Quesada as well. CM continues to follow. A: 58 year old female re-admitted to [facility] 11/23/18 for HCAP, FTT P: Kayla is receiving IV antibiotics and IV fluids for pneumonia. She remains acute level of care. At this time, the discharge plan is unclear due to Kayla's declining ability to safely manage her own care at home. CM will continue to support discharge planning needs, anticipate financial assessment and possible [facility] application, [facility] Financial Asst application and PAMELA navigator assistance. Instrument/Control Technician following Kayla as well.
[2018-11-24 08:45] LABS: Procalcitonin 14.1 ng/mL
[2018-11-24 09:04] LABS: Abs Immature Grans 0.28 k/cumm (0.0-0.09); HGB 8.2 g/dL (12.0-15.5); Mean Corp. HGB Concentration 34.2 g/dL (32.0-36.0); Mean Corpuscular Hemoglobin 34.7 pg (27.0-33.0); Mean Corpuscular Volume 101.7 fL (80-95); Mean Platelet Volume 9.7 fL (8.0-11.0); Platelet Count 292 x1000/uL (130-400); RBC 2.36 m/cumm (4.00-5.20)
[2018-11-24] MEDS: VANCOMYCIN 750 MG in Normal Saline 250 ML 166.667 MG IV (09:05)
[2018-11-24] MEDS: Aspirin E.C. 81 MG TABEC PO (09:06)
[2018-11-24] MEDS: Fluconazole 100 MG TAB PO (09:06)
[2018-11-24] MEDS: Magnesium Oxide 400 MG TAB 800 MG PO ×2 (09:06→20:53)
[2018-11-24] MEDS: Thiamine 100 MG TAB PO (09:06)
[2018-11-24] MEDS: Calcium Carbonate 1.25 GM TAB PO ×2 (09:06→20:52)
[2018-11-24] MEDS: Gabapentin 300 MG CAP PO ×2 (09:06→20:52)
[2018-11-24] MEDS: Multivitamin TAB 1 TAB PO (09:06)
[2018-11-24] MEDS: Lactobacillus Acidophilus CAP 1 CAP PO ×3 (09:06→20:53)
[2018-11-24] MEDS: Famotidine 20 MG TAB PO ×2 (09:07→20:53)
[2018-11-24] MEDS: Metoprolol 50 MG TAB PO ×2 (09:07→20:53)
[2018-11-24] MEDS: Clotrimazole 1% 15 GM TUBE TP ×3 (09:07→20:54)
[2018-11-24] MEDS: Folic Acid 1 MG TAB PO (09:07)
[2018-11-24] MEDS: Cyanocobalamin 500 MCG TAB PO (09:07)
[2018-11-24 09:27] LABS: Absolute Lymphocyte Count 0.59 k/cumm (1.2-3.4); Absolute Neutrophil Count 18.92 k/cumm (1.2-6.7)
[2018-11-24 09:28] LABS: Anisocytosis 2+; Diff Comment Manual Differential
[2018-11-24] MEDS: Budesonide/Formoterol 160/4.5 6 GM 60 PUFF INH IH ×2 (09:39→20:50)
--- NOTE | 2018-11-24 10:35 | IN_ITS ---
Date of service: 11/24/18 Time of Service: 09:00 PT Notes Inpatient Physical Therapy Evaluation Date: 11/24/2018 Referring Doctor: Yoli Quesada MD PT Orders: PT CONSULT: Generalized weakness, hypothyroidism, hyponatremia, falling at home Precautions: Fall. Contact precautions. Patient Profile/Admitting Diagnosis: Patient is a 58-year-old female readmitted on 11/23/18 s/p recent discharge home for HCAP, and FTT. She presents with past medical history significant for arterial occlusive disease, neuropathy, foot pain, history of ETOH abuse, and hypothyroidism who presented to the ED via EMS on 11/23/2018 with chief complaints of diarrhea, weakness, dehydration, failure to thrive. Patient was diagnosed with Alcohol withrawal, multiple wounds in B UE/LE, folate deficiency, and tobacco abuse. referral for physical therapy was made to address impairments in strength, balance, and mobility level. PMHX: Medical History Continuous chewing tobacco dependence (Inactive 01/22/12) Hyperlipidemia (Chronic 08/21/12) Neuropathy (Chronic 12/07/16) Hyperlipidemia (Chronic 08/21/12) Foot pain, left (Chronic 12/04/16) Essential hypertension (Chronic 01/22/12) Arterial occlusive disease (Chronic 12/04/16) Hypothyroidism (Chronic) Social History/Home Situation: Patient lives at alone in an apartment in [place], [place]. She states she is independent with all aspects of ADLs without assistive ambulatory devices nor adaptive equipment. She reports she has worked for a long time at [employer], third shift. She does not drive. She further states that she is currently on medical leave back home and resume work. Equipment Owned/DME: None. Subjective: Patient agreeable to a PT consult. She denies any headaches and dizziness. Does report generalized body weakness and achiness, pain on buttocks with movement, and pain into the left foot. Objective: General Observation: Multiple wounds to bilateral hands and forearms as well as on bilateral knees. Decubiti seen on sacral area seen. Dorsum of R hand erythematous. Bruising and pressure area on the left heel. IV left UE, O2 via nasal canula Mental Status: Alert and oriented as to person and place Pain: Patient reports moderate pain on the left forearm from IV insertion site, pain of the buttock and left heel ROM: Right Upper Extremity: Shoulder Flexion 0-80. Shoulder abduction 0-60. Elbow flexion WFL. Wrist flexion WFL. Functional opening and closing of hand WFL. Left Upper Extremity: Shoulder Flexion WFL. Shoulder abduction WFL. Elbow flexion WFL. Wrist flexion WFL. Functional opening and closing of hand WFL. Right Lower Extremity: Hip flexion WFL. Hip abduction WFL. Knee flexion WFL. Ankle dorsiflexion WFL. Ankle plantarflexion WFL. Left Lower Extremity: Hip flexion WFL. Hip abduction WFL. Knee flexion WFL. Ankle dorsiflexion WFL. Ankle plantarflexion WFL. STRENGTH: Right Upper Extremity: Shoulder flexors 3-/5. Shoulder abductors 3-/5. Elbow flexors 4/5. Elbow extensors 4/5. Electric Motor Repair Supervisor strong. Left Upper Extremity: Shoulder flexors 4/5. Shoulder abductors 4/5. Elbow flexors 4/5. Elbow extensors 4/5. Electric Motor Repair Supervisor strong. Right Lower Extremity:Hip flexors 3+/5. Hip abductors 3+/5. Knee flexors 3+/5. Knee extensors 4-/5. Ankle dorsiflexors 4/5. Ankle plantarflexors 4/5. Left Lower Extremity: Hip flexors 3+/5. Hip abductors 3+/5. Patient was able to tolerate minimal resistance provided to hip and knee extension in supine. Knee flexors 3+/5. Knee extensors 4-/5. Ankle dorsiflexors 4/5. Ankle plantarflexors 4/5. Sensation: Intact as to pain and pressure to B LE. BED MOBILITY LEVELS/TRANSFERS Supine to sit minimal assist of 1 Sit to supine minimal asist of 1 Sit to stand: mod assist of 1 with use of FWW Stand to sit minimal assist of 1 Bed to chair moderate assist of 1 with use of FWW Chair to bed moderate assist of 1 with use of FWW Gait: Patient took 3 to 5 steps from bed to chair. She sat up minimally and wanted to go back to bed due to the irritation of her buttocks. Placed sheep skin under her bottom in bed for reduced irritation. Balance: Static Sitting: Fair Dynamic Sitting: Fair Static Standing: Fair Dynamic Standing: Poor Special Tests: Mobility Limitations Standardized Measure [employer] AM-PAC 6 clicks Basic Mobility Inpatient Short Form: Raw Score: 15 CMS Score: 57.7% deficit Informed Consent/Education: Patient instructed in purpose of PT consult and plan of care. Assessment: Patient is a 58 year old female referred to physical therapy services with the diagnosis of hyponatremia, generalized weakness, left foot pain, buttock pain.. Patient presents with clinical signs and symptoms consi stent with current/admitting diagnoses that have resulted to mobility limitations, gait instability, generalized weakness, and impairment of motor control as demonstrated by the following impairment level findings: 1. Decreased strength to B LE major muscle groups 2. Impaired sitting/standing balance 3. Impaired activity tolerance 4. Multiple pressure areas on sacral and heels, multiple wounds on B hands and B knees Impairments are contributing to the following functional limitations: 1. Dependent bed mobility skills 2. Increased dependence with transfers 3. Inability to safely ambulate without assistive device and physical assistance 4. Increase completion time for mobility ADL performance 5. Increased fall risk 6. Inability to negotiate steps alone safely Patient is assessed Moderate 50821 complexity based on the following: History: 58-year-old female previously independent with all aspects of ADLs without use of any assistive ambulatory devices nor adaptive equipment who was admitted to the ED for generalized weakness, hyponatremia, failure to thrive, left foot pain and buttock pain Examination: Underlying impairments and functional limitations as noted above Presentation: Evolving Decision Makin moderate complexity Goals: Goals X1 week 1. Supine-Sit independent 2. Sit-Supine independent 3. Sit-Stand independent 4. Stand-Sit independent 5. Bed-Chair independent 6. Chair-Bed independent 7. Independent gait on level surface with use of least restrictive device for at least 300 feet without report of pain nor dyspnea 8. Independent stair negotiation while holding onto bilateral rails for at least 10 steps without report of pain nor dyspnea 9. Independent with home exercise program 10. Good static and dynamic standing balance/tolerance Plan of Care/Treatment Plan: 1-2x/day, 7 days/week x 1 week. Plan of care has been reviewed with the FOX F[employer]ER providing the service under Physical Therapy direction. Initiate Physical Therapy intervention for strengthening, bed mobility, transfers, gait, stairs, balance training, use of assistive device. DISCHARGE RECOMMENDATIONS: Patient will benefit from snf facility placement in order to maximize functional mobility level. Patient benefit from a front wheeled walker to maximize mobility and reduce fall risk TREATMENT CODE/TIME: 42307 45 minutes beginning at 9 AM. Thank you for this referral. Glenda Arce, MPT [facility]
[2018-11-24] MEDS: Cholestyramine/Aspartame PKT 1 EACH PO ×2 (11:29→19:52)
[2018-11-24] MEDS: methylPREDNISolone SUCC 125 MG VIAL 60 MG IVP ×2 (11:29→18:45)
[2018-11-24] MEDS: cefTRIAXone 1 GM/50 ML BAG IVPB (11:31)
[2018-11-24] MEDS: Normal Saline Flush 10 ML SYR IVP ×2 (11:31→18:45)
--- NOTE | 2018-11-24 14:51 | W.PM.PROGNOT ---
Date of Service Date of service: 11/24/18 Time of Service: 14:51 Assessment and Plan (1) Acute respiratory failure with hypoxia: Current visit: Yes Status: Acute Likely due to combination of HCAP vs aspiration pneumonia and acute exacerbation of COPD. Improved - down to 2L today. Continue to treat above conditions. Wean O2 as tolerated. (2) HCAP (healthcare-associated pneumonia): Current visit: Yes Status: Acute Improved. Aspiration pneumonai is not ruled out, but with recent hospitalization, HCAP is also high on differential. Continue vancomycin/levofloxacin. Blood cultures NGTD; sputum C&S ordered. (3) COPD with acute exacerbation: Current visit: Yes Status: Acute Taper IV steroids, Continue nebs, symbicort. As above (4) Hyponatremia: Current visit: No Status: Chronic Improving on NS. 2 pm blood draw is pending. (5) C. difficile colitis: Current visit: No Status: Acute Patient states she no longer has diarrhea. Continue PO antibiotics. PPI changed to H2 boyd. Continue probioitics. Questran added with holding parameters if no BM x 24 hrs. (6) Alcohol use: Current visit: No Status: Acute Monitor on CIWA. (7) Failure to thrive: Current visit: No Status: Acute Case management to assist with placement on discharge (8) DVT prophylaxis: Current visit: No Status: Acute heparin SQ (9) Discharge planning issues: Current visit: No Status: Acute Full code Refuses transfer to ICU 'unless something bad happens'. Subjective Interval history since last seen: Reports feeling better, but still tired. Denies dizziness, continues to report a headache. No changes to her vision. Denies chest pain, shortness of breath. Continues to report a cough. Denies nausea/vomiting as long as she keeps her stomach full. Exam Narrative Exam Narrative: General: Frail middle-aged female, looks much more awake today, A&Ox3 HEENT: EOMI, MMM Heart: RRR, no m/r/g Lungs: Diminished breath sounds B, no wheezing heard GI: abdomen is soft, nontender, nondistended Extremities: No e/c/c BLE's Objective Objective Clinical Data: Abnormal lab results 11/23/18 11/24/18 11/24/18 Range/Units 17:05 00:15 07:30 WBC (4.4-10.8) k/cumm RBC (4.00-5.20) m/cumm Hgb (12.0-15.5) g/dL Hct (36.0-46.0) % MCV (80-95) fL MCH (27.0-33.0) pg Absolute Neutrophils (1.2-6.7) k/cumm Absolute Lymphocytes (1.2-3.4) k/cumm Absolute Monocytes (0.11-0.7) k/cumm Sodium 122 L* 127 L 126 L (136-145) mmol/L Chloride 90 L 95 L 94 L (98-107) mmol/L Creatinine 0.44 L 0.40 L 0.38 L (0.55-1.02) mg/dL Glucose 123 H 144 H 169 H (70-100) mg/dL Calcium 8.0 L 8.1 L 8.1 L (8.5-10.1) mg/dL 11/24/18 Range/Units 08:55 WBC 19.50 H (4.4-10.8) k/cumm RBC 2.36 L (4.00-5.20) m/cumm Hgb 8.2 L D (12.0-15.5) g/dL Hct 24.0 L D (36.0-46.0) % MCV 101.7 H (80-95) fL MCH 34.7 H (27.0-33.0) pg Absolute Neutrophils 18.92 H (1.2-6.7) k/cumm Absolute Lymphocytes 0.59 L (1.2-3.4) k/cumm Absolute Monocytes 0.00 L (0.11-0.7) k/cumm Sodium (136-145) mmol/L Chloride (98-107) mmol/L Creatinine (0.55-1.02) mg/dL Glucose (70-100) mg/dL Calcium (8.5-10.1) mg/dL Vital Signs Temperature 36.8 C 11/24/18 11:00 Temperature Source Skin 11/24/18 11:00 Pulse 98 H 11/24/18 11:00 Pulse Rhythm Regular 11/24/18 08:15 Pulse 111 H 11/23/18 03:20 Respiratory Rate 18 11/24/18 11:00 Respiratory Effort Non-Labored 11/24/18 08:15 Respiratory Depth Normal 11/24/18 08:15 Respiratory Pattern Hyperpnea 11/24/18 08:15 Blood Pressure 106/80 11/24/18 11:00 Blood Pressure Mean 87 11/23/18 03:16 Pulse Oximetry 95 11/24/18 11:00 Oxygen Delivery Method Nasal Cannula 11/24/18 11:00 Oxygen Flow Rate 2 11/24/18 11:00 Pain Level 9 11/24/18 07:10 Comment 11/24/18 04:05 Intake & Output 11/23/18 11/24/18 11/24/18 23:59 11:59 23:59 Intake Total 841.25 / 1891.25 1106.25 / 1106.25 Balance 841.25 / 1891.25 1106.25 / 1106.25 Weight 39.7 kg Intake: IV 421.25 / 671.25 806.25 / 806.25 Oral 420 / 1220 300 / 300 Other: Urine Color Yellow Urine Appearance Clear Clear Comment pt dry at this time. Stool Size Moderate Moderate Stool Characteristics Liquid Soft Brown Brown Voiding Methods Diaper Incontinent Incontinent Laboratory Results WBC 19.50 k/cumm (4.4-10.8) H 11/24/18 08:55 RBC 2.36 m/cumm (4.00-5.20) L 11/24/18 08:55 Hgb 8.2 g/dL (12.0-15.5) L D 11/24/18 08:55 Hct 24.0 % (36.0-46.0) L D 11/24/18 08:55 MCV 101.7 fL (80-95) H 11/24/18 08:55 MCH 34.7 pg (27.0-33.0) H 11/24/18 08:55 MCHC 34.2 g/dL (32.0-36.0) 11/24/18 08:55 RDW 14.0 % (11.7-14.6) 11/24/18 08:55 Plt Count 292 x1000/uL (130-400) 11/24/18 08:55 MPV 9.7 fL (8.0-11.0) 11/24/18 08:55 Immature Gran % See Differential 11/24/18 08:55 20.0 11/24/18 08:55 77.0 % 11/24/18 08:55 3.0 11/24/18 08:55 Atypical Lymphs % 0 11/23/18 04:30 0.0 11/24/18 08:55 0.0 11/24/18 08:55 0.0 11/24/18 08:55 Absolute Neutrophils 18.92 k/cumm (1.2-6.7) H 11/24/18 08:55 Absolute Lymphocytes 0.59 k/cumm (1.2-3.4) L 11/24/18 08:55 Absolute Monocytes 0.00 k/cumm (0.11-0.7) L 11/24/18 08:55 Absolute Eosinophils 0.00 k/cumm (0.0-0.7) 11/24/18 08:55 Absolute Basophils 0.00 k/cumm (0.0-0.2) 11/24/18 08:55 Manual differential 11/24/18 08:55 RBC Morphology See below 11/23/18 04:30 2+ 11/24/18 08:55 Sample Site Right radial 11/23/18 07:57 pCO2 31 mmHg (34-47) L 11/23/18 07:57 pO2 42 mmHg (83-108) L 11/23/18 07:57 O2 Saturation 83 % (94-98) L 11/23/18 07:57 ABG pH 7.50 (7.35-7.45) H 11/23/18 07:57 ABG HCO3 24 mmol/L (22-28) 11/23/18 07:57 ABG Total CO2 22 mmol/L (22-29) 11/23/18 07:57 ABG Base Excess 0.7 mmol/L (-3-3) 11/23/18 07:57 Oxygen Liter Flow 3 L 11/23/18 07:57 Sodium 126 mmol/L (136-145) L 11/24/18 07:30 Potassium 4.2 mmol/L (3.5-5.1) 11/24/18 07:30 Chloride 94 mmol/L (98-107) L 11/24/18 07:30 Carbon Dioxide 24.9 mmol/L (21.0-32.0) 11/24/18 07:30 7.1 mmol/L (3-11) 11/24/18 07:30 BUN 9 mg/dL (7-18) 11/24/18 07:30 0.38 mg/dL (0.55-1.02) L 11/24/18 07:30 >= 60.00 (mL/min/1.73m2) 11/24/18 07:30 Glucose 169 mg/dL (70-100) H 11/24/18 07:30 1.4 mmol/l (0.6-1.4) 11/23/18 07:28 Calcium 8.1 mg/dL (8.5-10.1) L 11/24/18 07:30 Magnesium 2.1 mg/dL (1.8-2.4) 11/24/18 07:30 14.1 ng/mL 11/24/18 07:30 Ethyl Alcohol 23.7 mg/dL (<3) 11/23/18 03:28
[2018-11-24 14:55] LABS: Anion Gap 9.3 mmol/L (3-11); BUN 9 mg/dL (7-18); CO2 22.7 mmol/L (21.0-32.0); CREATININE 0.46 mg/dL (0.55-1.02); Chloride 94 mmol/L (98-107); Glucose 123 mg/dL (70-100); Potassium 4.1 mmol/L (3.5-5.1); Sodium 126 mmol/L (136-145)
[2018-11-24 17:55] LABS: Vancomycin, Trough 15.9 ug/mL (10.0-20.0)
[2018-11-24] MEDS: VANCOMYCIN 750 MG in Normal Saline 250 ML 167 MG IV (18:46)
[2018-11-24] MEDS: Lidocaine 5% Patch 1 PATCH TP (20:50)
[2018-11-25] VITALS (13 sets, daily range): BP systolic 115–149; BP diastolic 68–85; PULSE 83–98; RESP 1–20; TEMP 36–36.5; O2SAT 93–97
[2018-11-25] MEDS: Normal Saline Flush 10 ML SYR IVP ×4 (01:41→23:33)
[2018-11-25] MEDS: methylPREDNISolone SUCC 125 MG VIAL 60 MG IVP ×2 (01:42→10:04)
[2018-11-25] MEDS: Acetaminophen 325 MG TAB 650 MG PO ×3 (02:12→14:17)
[2018-11-25] MEDS: VANCOMYCIN 750 MG in Normal Saline 250 ML 167 MG IV ×3 (04:23→23:32)
[2018-11-25] MEDS: Heparin 5,000 UNITS/ML VIAL 5000 UNITS SC ×2 (04:26→15:33)
[2018-11-25] MEDS: levoFLOXacin 500 MG/100 ML BAG 100 MG IVPB (06:56)
[2018-11-25] MEDS: Vancomycin 125 MG CAP PO ×4 (06:56→23:32)
[2018-11-25] MEDS: Levothyroxine 100 MCG TAB PO (06:57)
[2018-11-25] MEDS: Albuterol/Ipratropium 3 ML UPD VIAL UPD ×4 (06:57→23:32)
[2018-11-25] MEDS: LORazepam 1 MG TAB PO/SL ×2 (07:16→23:20)
[2018-11-25 07:23] LABS: Abs Immature Grans 0.11 k/cumm (0.0-0.09); Absolute Eosinophil Count 0.35 k/cumm (0.0-0.7); Eosinophils % 2.4; HCT 24.6 % (36.0-46.0); HGB 8.3 g/dL (12.0-15.5); Immature Grans % 0.8; Lymphocytes % 3.9; Mean Corp. HGB Concentration 33.7 g/dL (32.0-36.0); Mean Corpuscular Volume 103.8 fL (80-95); Mean Platelet Volume 10.1 fL (8.0-11.0); Monocytes % 3.9; Platelet Count 301 x1000/uL (130-400); RBC 2.37 m/cumm (4.00-5.20); RBC Distribution Width 14.2 % (11.7-14.6); White Blood Cell Count 14.46 k/cumm (4.4-10.8)
[2018-11-25 07:25] LABS: Absolute Lymphocyte Count 0.56 k/cumm (1.2-3.4); Absolute Monocyte Count 0.56 k/cumm (0.11-0.7); Absolute Neutrophil Count 12.87 k/cumm (1.2-6.7)
[2018-11-25 07:45] LABS: Anion Gap 10.7 mmol/L (3-11); BUN 8 mg/dL (7-18); CO2 22.3 mmol/L (21.0-32.0); CREATININE 0.37 mg/dL (0.55-1.02); Chloride 98 mmol/L (98-107); Glucose 155 mg/dL (70-100); Magnesium 1.9 mg/dL (1.8-2.4); Potassium 3.3 mmol/L (3.5-5.1); Sodium 131 mmol/L (136-145)
[2018-11-25 08:18] LABS: Procalcitonin 7.2 ng/mL
[2018-11-25] MEDS: Lactobacillus Acidophilus CAP 1 CAP PO ×3 (08:39→19:29)
[2018-11-25] MEDS: Aspirin E.C. 81 MG TABEC PO (08:39)
[2018-11-25] MEDS: Calcium Carbonate 1.25 GM TAB PO ×2 (08:39→19:30)
[2018-11-25] MEDS: Thiamine 100 MG TAB PO (08:39)
[2018-11-25] MEDS: Multivitamin TAB 1 TAB PO (08:39)
[2018-11-25] MEDS: Potassium Chloride 20 MEQ TABCR 40 MEQ PO (08:39)
[2018-11-25] MEDS: Famotidine 20 MG TAB PO ×2 (08:39→19:30)
[2018-11-25] MEDS: Folic Acid 1 MG TAB PO (08:39)
[2018-11-25] MEDS: Metoprolol 50 MG TAB PO ×2 (08:39→19:30)
[2018-11-25] MEDS: Magnesium Oxide 400 MG TAB 800 MG PO ×2 (08:40→19:30)
[2018-11-25] MEDS: Gabapentin 300 MG CAP PO ×2 (08:40→19:30)
[2018-11-25] MEDS: Fluconazole 100 MG TAB PO (08:40)
[2018-11-25] MEDS: Cyanocobalamin 500 MCG TAB PO (08:40)
[2018-11-25] MEDS: Clotrimazole 1% 15 GM TUBE TP ×3 (08:42→19:24)
--- NOTE | 2018-11-25 08:57 | OT.INIE ---
Occupational Therapy Notes Inpatient Occupational Therapy Evaluation Date: 11/25/18 Referring Doctor:Yoli Queasda MD OT Orders: Eval and treat Precautions: Contact/Fall PATIENT PROFILE/ADMITTING DIAGNOSIS: Pt is a 58 year old female admitted through the ER after returning home for hours after stay at [facility], she was admitted again with dx of HCAP, hypomagnesemia, c-diff colitis, failure to thrive, hypokalemia, difficulty breathing with confusion. Past Medical History: Continuous chewing tobacco dependence (Inactive 01/22/12) Hyperlipidemia (Chronic 08/21/12) Neuropathy (Chronic 12/07/16) Hyperlipidemia (Chronic 08/21/12) Foot pain, left (Chronic 12/04/16) Essential hypertension (Chronic 01/22/12) Arterial occlusive disease (Chronic 12/04/16) Hypothyroidism (Chronic) Social History/Home Situation: Pt lives alone in an apartment. She does not use any devices for functional mobility. At Baseline pts ADLs are performed at the following level of function- Eating-(I) Grocery Shopping- Shops when she needs to, however states that she freezes all of her food and just eats it over the months. She states that she very rarely goes to get food. Cooking- Microwave Sleeping-(I) Dressing- (I) Bathing- Only has a bathtub no shower. She states its an old claw foot tub and she does this (I). Pt admits she is not able to perform this at her home and that she feels that she can get in the tub but cannot get out of the tub. Driving- Does not drive, states she walks everywhere Work- Works at [employer] in [place] 3rd shift. Has had multiple dramatic experiences in the work place. She has not returned to her work demands since last admission to [facility]. Support- Pt states that she has very limited social support and that no one ever comes to check on her. She reports multiple times that she has no one who really cares about her. Pets- A cat Equipment owned/DME: Pt states she does not need this. Although OT does feel that pt is not at her baseline level of function and will require DME in order to perform her ADLs at home. SUBJECTIVE: Pt was sitting in bed when OT arrived. She reports that she was bored at home and came back to the hospital. Although pt does present this in a sarcastic manner she also notes that she is sick of her feet and would feel better if they were cut off making a scissor notion with her hand and then laughing. OBJECTIVE: General Observation: IV (L) UE Mental Status: A&Ox2 Pain: c/o pain in buttock and (B) feet and posterior aspect of legs and thighs, pt reports a 9/10 pain rating. Strength: RUE Shoulder flexion 4/5, elbow 3-/5, patient relations coordinator 4/5 L UE Shoulder flexion 4/5, elbow 3+/5, patient relations coordinator 4/5 ROM: RUE AROM WNL LUE AROM WNL FUNCTIONAL MOBILITY/ADLS: Transfers Supine-sit (I) Sit-supine (I) BATHING Pt denies. She reports that she is not dirty and not interested at this time. DRESSING Dressing UE NT Dressing LE max (A) don and doff (B) socks, pt is functionally not able to perform bending at hips to reach LE due to per pain GROOMING Pt denies. TOILETING pt denies BALANCE: Static sitting Normal Dynamic Sitting Good INFORMED CONSENT/EDUCATION: Pt instructed in purpose of OT Consult and plan of care. ASSESSMENT: Patient is a 58-year-old female referred to occupational therapy services with diagnosis of generalized weakness,HCAP, hypomagnesemia, c-diff colitis, failure to thrive, hypokalemia, difficulty breathing with confusion. Patient presents with clinical signs and symptoms consistent with dx, as demonstrated by the following impairment level findings: decreased functional activity tolerance, decreased functional mobility, decreased safety awareness, decreased awareness of medical issues, pain in (B) feet, pain in buttock. Impairments are contributing to the following functional limitations: Unable to perform safe functional mobility, decreased functional activity tolerance, unable to perform ADLs safely in her home set up, decreased supports for ability to thrive in home environment, decreased ability to perform LE dressing and bathing routines. Patient is assessed as a Moderate 44571 complexity based on the following: History: See Above Examination: See Above Presentation: Evolving Decision Making: Moderate complexity based on examination GOALS Goals x1 week 1. Transfers FWW (I) 2. Dressing mod (I) with use of adaptive equipment 3. Bathing (I) standing at sink 4. Toileting (I) on toilet 5. Eating (I) 6. Pt will be able to stand at sink with FWW to brush her teeth and hair (I). PLAN OF CARE/TREATMENT PLAN: 1x/day, 5 days/ week x 1week Initiate Occupational Therapy Services for bathing, dressing, grooming, toileting, eating, transfer training. DISCHARGE RECOMMENDATIONS Home with services. Due to pts decreased safety awareness and generalized weakness affecting her ADLs/IADLs OT does not feel that pt is safe to return home without an assessment of her home environment to perform her ADLs. TREATMENT TIME/MINUTES/CODES 43010, 25 minutes (07:05) Jane Gomez OTR/L [facility]
[2018-11-25 09:43] LABS: Diff Comment Diff Reviewed; Macrocytosis 1+; Polychromasia Present
[2018-11-25 09:47] LABS: Anisocytosis 1+; Macrocytosis 1+; Polychromasia Present
--- NOTE | 2018-11-25 09:49 | CMPROGNOTE_ITS ---
- If Service Date Differs Date of service: 11/25/18 Time of Service: 09:49 Care Management Progress Note S/O: Kayla was sitting up in bed when CM came to see her. She was awake and alert and readily engaged in conversation, maintaining good eye contact. Kayla said she was getting a bit depressed. When asked why, she responded that she doesn't know what's next. She asked where do I go from here? She acknowledged that she is not able to go home and care for herself; she said she knows she needs to go to rehab. She also discussed her finances and stated that she has to return to work. She says she does not have enough money to pay for her apartment and pay her bills. CM discussed the possibility of completing a LTM application and Kayla was agreeable, but states she does not have anyone who can get her financial documents from her home.Kayla also stated that she needs surgery on her foot so that it doesn't hurt anymore. CM observed that there are no notations in her record that surgery is planned. Kayla shared that her cat is the most important thing to her and that she needs to get home to care for him. A: 58 year old female re-admitted to [facility] 11/23/18 for HCAP, FTT P: Kayla is receiving IV antibiotics and IV fluids for pneumonia. She remains acute level of care. At this time, the discharge plan is unclear due to Kayla's declining ability to safely manage her own care at home. CM will continue to support discharge planning needs, anticipate financial assessment and possible LTC [facility] application, [facility] Financial Asst application and PAMELA navigator assistance. Form Raiser following Kayla as well.
[2018-11-25] MEDS: Cholestyramine/Aspartame PKT 1 EACH PO (10:03)
[2018-11-25] MEDS: cefTRIAXone 1 GM/50 ML BAG IVPB (10:04)
[2018-11-25] MEDS: Normal Saline 1,000 ML 75 ML IV (10:15)
--- NOTE | 2018-11-25 11:47 | W.PM.PROGNOT ---
Date of Service Date of service: 11/25/18 Time of Service: 11:47 Assessment and Plan (1) Acute respiratory failure with hypoxia: Current visit: Yes Status: Acute Improved. Attempting to wean to RA today. Likely due to combination of HCAP vs aspiration pneumonia and acute exacerbation of COPD. Continue to treat above conditions. (2) HCAP (healthcare-associated pneumonia): Current visit: Yes Status: Acute Improved. Aspiration pneumonia is not ruled out, but with recent hospitalization, HCAP is also high on differential. Continue vancomycin/levofloxacin/rocephin. Rocephin added yesterday due to rise in procalcitonin. This does appear to have bumped it down today. Blood cultures NGTD; sputum C&S ordered. (3) COPD with acute exacerbation: Current visit: Yes Status: Acute Taper IV steroids, Continue nebs, symbicort. As above (4) Hyponatremia: Current visit: No Status: Chronic At baseline. D/c IVF. (5) C. difficile colitis: Current visit: No Status: Acute Diarrhea resolved. D/c questran. Continue PO vanco. PPI changed to H2 boyd. Continue probioitics. Needs to complete a total of 10 days (will plan for 11/27/18). (6) Alcohol use: Current visit: No Status: Acute Monitor on CIWA. Score was 4 (7) Failure to thrive: Current visit: No Status: Acute Case management to assist with placement on discharge. As there is a question of patient's capacity to make medical decisions/disposition decisions, we will consult psychiatry for a capacity evaluation. (8) DVT prophylaxis: Current visit: No Status: Acute heparin SQ (9) Discharge planning issues: Current visit: No Status: Acute Full code Refuses transfer to ICU 'unless something bad happens'. Subjective Interval history since last seen: Ms Leon states she is having her chronic pain in her L foot - it's always there. States the last time she had a BM was yesterday. Denies dizziness, chest pain, shortness of breath, nausea, vomiting. C/o RUE pain - refuses a repeat XR. Exam Narrative Exam Narrative: General: Frail middle-aged female, asleep initially when I saw her, easily arousable, A&Ox3 HEENT: EOMI, MMM Heart: RRR, no m/r/g Lungs: Diminished breath sounds B, no wheezing heard GI: abdomen is soft, nontender, nondistended Extremities: No e/c/c BLE's, a small cut on 2nd toe LLE, trace pulses B Objective Objective Clinical Data: Abnormal lab results 11/24/18 11/25/18 11/25/18 Range/Units 14:30 06:30 06:30 WBC 14.46 H (4.4-10.8) k/cumm RBC 2.37 L (4.00-5.20) m/cumm Hgb 8.3 L (12.0-15.5) g/dL Hct 24.6 L (36.0-46.0) % MCV 103.8 H (80-95) fL MCH 35.0 H (27.0-33.0) pg Absolute Neutrophils 12.87 H (1.2-6.7) k/cumm Absolute Lymphocytes 0.56 L (1.2-3.4) k/cumm Sodium 126 L 131 L (136-145) mmol/L Potassium 3.3 L (3.5-5.1) mmol/L Chloride 94 L (98-107) mmol/L Creatinine 0.46 L 0.37 L (0.55-1.02) mg/dL Glucose 123 H 155 H (70-100) mg/dL Calcium 8.0 L 8.0 L (8.5-10.1) mg/dL Vital Signs Temperature 36.5 C 11/25/18 07:14 Temperature Source Tympanic 11/25/18 07:14 Pulse 90 11/25/18 07:19 Pulse Rhythm Regular 11/25/18 09:39 Pulse 111 H 11/23/18 03:20 Respiratory Rate 18 11/25/18 07:19 Respiratory Effort Non-Labored 11/25/18 09:39 Respiratory Depth Normal 11/25/18 09:39 Respiratory Pattern Normal 11/25/18 09:39 Blood Pressure 126/71 11/25/18 07:14 Blood Pressure Mean 87 11/23/18 03:16 Pulse Oximetry 97 11/25/18 07:19 Oxygen Delivery Method Nasal Cannula 11/25/18 07:14 Oxygen Flow Rate 2 11/25/18 07:14 Pain Level 4 11/25/18 08:15 Comment 11/25/18 03:20 Intake & Output 11/24/18 11/24/18 11/25/18 11:59 23:59 11:59 Intake Total 1106.25 / 2906.25 1800 / 2906.25 300 / 300 Balance 1106.25 / 2906.25 1800 / 2906.25 300 / 300 Weight 39.7 kg 40.2 kg Intake: IV 806.25 / 1056.25 250 / 1056.25 Oral 300 / 1850 1550 / 1850 300 / 300 Other: Urine Appearance Clear Comment urine and stool Stool Occult Blood Negative Stool Size Moderate Smear Smear Stool Characteristics Soft Liquid Brown Voiding Methods Diaper Diaper Diaper Incontinent Incontinent Incontinent Laboratory Results WBC 14.46 k/cumm (4.4-10.8) H 11/25/18 06:30 RBC 2.37 m/cumm (4.00-5.20) L 11/25/18 06:30 Hgb 8.3 g/dL (12.0-15.5) L 11/25/18 06:30 Hct 24.6 % (36.0-46.0) L 11/25/18 06:30 MCV 103.8 fL (80-95) H 11/25/18 06:30 MCH 35.0 pg (27.0-33.0) H 11/25/18 06:30 MCHC 33.7 g/dL (32.0-36.0) 11/25/18 06:30 RDW 14.2 % (11.7-14.6) 11/25/18 06:30 Plt Count 301 x1000/uL (130-400) 11/25/18 06:30 MPV 10.1 fL (8.0-11.0) 11/25/18 06:30 Immature Gran % 0.8 11/25/18 06:30 89.0 11/25/18 06:30 77.0 % 11/24/18 08:55 3.9 11/25/18 06:30 Atypical Lymphs % 0 11/23/18 04:30 3.9 11/25/18 06:30 2.4 11/25/18 06:30 0.0 11/25/18 06:30 Absolute Neutrophils 12.87 k/cumm (1.2-6.7) H 11/25/18 06:30 Absolute Lymphocytes 0.56 k/cumm (1.2-3.4) L 11/25/18 06:30 Absolute Monocytes 0.56 k/cumm (0.11-0.7) 11/25/18 06:30 Absolute Eosinophils 0.35 k/cumm (0.0-0.7) 11/25/18 06:30 Absolute Basophils 0.00 k/cumm (0.0-0.2) 11/25/18 06:30 Diff reviewed 11/25/18 06:30 RBC Morphology See below 11/25/18 06:30 Present 11/25/18 06:30 2+ 11/24/18 08:55 1+ 11/25/18 06:30 Sample Site Right radial 11/23/18 07:57 pCO2 31 mmHg (34-47) L 11/23/18 07:57 pO2 42 mmHg (83-108) L 11/23/18 07:57 O2 Saturation 83 % (94-98) L 11/23/18 07:57 ABG pH 7.50 (7.35-7.45) H 11/23/18 07:57 ABG HCO3 24 mmol/L (22-28) 11/23/18 07:57 ABG Total CO2 22 mmol/L (22-29) 11/23/18 07:57 ABG Base Excess 0.7 mmol/L (-3-3) 11/23/18 07:57 Oxygen Liter Flow 3 L 11/23/18 07:57 Sodium 131 mmol/L (136-145) L 11/25/18 06:30 Potassium 3.3 mmol/L (3.5-5.1) L 11/25/18 06:30 Chloride 98 mmol/L (98-107) 11/25/18 06:30 Carbon Dioxide 22.3 mmol/L (21.0-32.0) 11/25/18 06:30 10.7 mmol/L (3-11) 11/25/18 06:30 BUN 8 mg/dL (7-18) 11/25/18 06:30 0.37 mg/dL (0.55-1.02) L 11/25/18 06:30 >= 60.00 (mL/min/1.73m2) 11/25/18 06:30 Glucose 155 mg/dL (70-100) H 11/25/18 06:30 1.4 mmol/l (0.6-1.4) 11/23/18 07:28 Calcium 8.0 mg/dL (8.5-10.1) L 11/25/18 06:30 Magnesium 1.9 mg/dL (1.8-2.4) 11/25/18 06:30 7.2 ng/mL 11/25/18 06:30 Vancomycin Trough 15.9 ug/mL (10.0-20.0) 11/24/18 17:17 Ethyl Alcohol 23.7 mg/dL (<3) 11/23/18 03:28
--- NOTE | 2018-11-25 12:23 | PT.INTREAT ---
Date of service: 11/25/18 Time of Service: 12:23 PT Notes Inpatient Physical Therapy Treatment Note [facility] Date: 11/25/18 PRECAUTIONS: Fall, WBAT L, contact SUBJECTIVE: Kayla states that she is feeling better than she did last week though continues to feel tired and have pain OBJECTIVE: PAIN: Patient complained of buttock and back pain with transfers and ther ex and R LE pain with gait training BED MOBILITY/TRANSFERS Supine-sit: SBA with HOB at 40 degrees Sit-stand: CGA Stand-sit: CGA Bed-Chair: CGA GAIT Assistive Device: FWW Weight bearing: Full Assist: CGA Distance: 5' in a.m.; 15' in p.m. Deviation: Standing rest x2 in p.m. THEREX: Patient completed a LE strengthening program, in a seated position in a.m. and in a supine position in p.m., as per flow sheet. She also completed shoulder flexion exercise, requiring assist on R due to weakness. ASSESSMENT: Patient tolerated session with complaints of buttock and back pain with ther ex and R LE pain with gait training. She was able to tolerate a progression in gait distance with FWW support and CGA. She would benefit from continued gait and transfer training as well as global strengthening for improved mobility and activity tolerance. PLAN: Continue with PT's POC TREATMENT CODE/TIME: Session 1: 25 minutes; [id number], [id number] Session 2: 30 minutes; [id number], [id number]
--- NOTE | 2018-11-25 14:31 | CHAPLAIN ---
Kayla was discharged on 11/23, then returned to the ER and was readmitted several hours later. This morning, Kayla tells me that she's feeling better, but her arm hurts. It has been x-rayed. She tells me she is upset that she is being treated for alcohol withdrawal and doesn't think this is necessary. She said she was home for two days, which is not correct. Later Kayla asked me to pray with her. I left when the PT person arrived to get Kayla up and moving.
[2018-11-25 14:42] LABS: Absolute Lymphocyte Count 0.08 k/cumm (1.2-3.4); Absolute Monocyte Count 0.04 k/cumm (0.11-0.7)
[2018-11-25] MEDS: methylPREDNISolone SUCC 40 MG VIAL IVP (17:43)
[2018-11-25] MEDS: Lidocaine 5% Patch 1 PATCH TP (19:25)
[2018-11-25] MEDS: Budesonide/Formoterol 160/4.5 6 GM 60 PUFF INH IH (19:31)
[2018-11-26 00:30] VITALS: BP 134/79; PULSE 81; RESP 20; TEMP 36.6; O2SAT 96
[2018-11-26] MEDS: methylPREDNISolone SUCC 40 MG VIAL IVP ×3 (02:00→17:33)
[2018-11-26 04:21] VITALS: BP 143/83; PULSE 91; RESP 19; TEMP 36.7; O2SAT 98
[2018-11-26] MEDS: levoFLOXacin 500 MG/100 ML BAG 100 MG IVPB (06:36)
[2018-11-26] MEDS: Levothyroxine 100 MCG TAB PO (06:37)
[2018-11-26] MEDS: Vancomycin 125 MG CAP PO ×3 (06:37→17:34)
[2018-11-26] MEDS: Albuterol/Ipratropium 3 ML UPD VIAL UPD (06:38)
[2018-11-26] MEDS: LORazepam 1 MG TAB PO/SL (06:49)
[2018-11-26] MEDS: Acetaminophen 325 MG TAB 650 MG PO ×2 (06:49→14:25)
[2018-11-26 07:20] VITALS: BP 142/78; PULSE 94; RESP 20; TEMP 36; O2SAT 95
[2018-11-26 07:46] LABS: Abs Immature Grans 0.05 k/cumm (0.0-0.09); Absolute Eosinophil Count 0.12 k/cumm (0.0-0.7); Absolute Lymphocyte Count 0.61 k/cumm (1.2-3.4); Absolute Monocyte Count 0.59 k/cumm (0.11-0.7); Eosinophils % 1.3; HCT 24.9 % (36.0-46.0); HGB 8.3 g/dL (12.0-15.5); Immature Grans % 0.5; Lymphocytes % 6.6; Mean Corp. HGB Concentration 33.3 g/dL (32.0-36.0); Mean Corpuscular Hemoglobin 34.7 pg (27.0-33.0); Mean Corpuscular Volume 104.2 fL (80-95); Mean Platelet Volume 9.7 fL (8.0-11.0); Monocytes % 6.4; Neutrophils % 85.2; Platelet Count 324 x1000/uL (130-400); RBC 2.39 m/cumm (4.00-5.20); RBC Distribution Width 14.4 % (11.7-14.6); White Blood Cell Count 9.18 k/cumm (4.4-10.8)
[2018-11-26 07:49] LABS: Absolute Neutrophil Count 7.82 k/cumm (1.2-6.7)
[2018-11-26 08:11] LABS: Anion Gap 10.6 mmol/L (3-11); BUN 10 mg/dL (7-18); CO2 23.4 mmol/L (21.0-32.0); CREATININE 0.42 mg/dL (0.55-1.02); Calcium 8.2 mg/dL (8.5-10.1); Chloride 100 mmol/L (98-107); Glucose 128 mg/dL (70-100); Potassium 4.1 mmol/L (3.5-5.1); Sodium 134 mmol/L (136-145)
[2018-11-26] MEDS: Budesonide/Formoterol 160/4.5 6 GM 60 PUFF INH IH ×2 (08:17→19:35)
[2018-11-26 08:29] LABS: Procalcitonin 4.1 ng/mL
[2018-11-26] MEDS: Metoprolol 50 MG TAB PO ×2 (09:05→19:37)
[2018-11-26] MEDS: Fluconazole 100 MG TAB PO (09:06)
[2018-11-26] MEDS: Aspirin E.C. 81 MG TABEC PO (09:07)
[2018-11-26] MEDS: Gabapentin 300 MG CAP PO ×2 (09:07→19:37)
[2018-11-26] MEDS: Magnesium Oxide 400 MG TAB 800 MG PO ×2 (09:08→19:37)
[2018-11-26] MEDS: Calcium Carbonate 1.25 GM TAB PO ×2 (09:09→19:37)
[2018-11-26] MEDS: Folic Acid 1 MG TAB PO (09:09)
[2018-11-26] MEDS: Clotrimazole 1% 15 GM TUBE TP ×2 (09:15→19:35)
--- NOTE | 2018-11-26 09:49 | OTTR_ITS ---
Date of service: 11/26/18 Time of Service: 09:15 Occupational Therapy Notes Occupational Therapy Inpatient Treatment Note Date: 11/26/18 PRECAUTIONS: Fall, contact SUBJECTIVE: Pt was sitting in chair when OT arrived. She was having difficulty sitting up on her own and stating that her butt was hurting her. OBJECTIVE: PAIN:c/o pain in butt and legs. FUNCTIONAL MOBILITY Sit-stand: Min (A) x2 Stand-sit: Min (A) x2 Chair-bed: Min (A) x2 with mod vc for leg movement BATHING: Sitting in chair with max (A) set up Upper Body: (I) with min vc throughout Lower Body: (I) to knees, max (A) Lower legs, max (A) remington area DRESSING: Sitting in chair Upper Extremity: Mod (A) don and doffing [facility] Lower Extremity: Max (A) with don and doffing (B) socks TOILETING: Pt was incontinent without realizing this ASSESSMENT/PLAN: Pt has taken a decline in her functional (I). She is presenting with decreased functional activity tolerance and her functional mobility has significantly declined since last session. OT will monitor pts response to todays session and progress accordingly. TREATMENT CODES/TIME: [id number], 25 minutes (09:15) Jane Gomez OTR/[facility]
[2018-11-26] MEDS: cefTRIAXone 1 GM/50 ML BAG IVPB (10:51)
[2018-11-26] MEDS: Normal Saline Flush 10 ML SYR IVP ×2 (10:52→17:33)
[2018-11-26 11:05] VITALS: BP 141/84; PULSE 80; RESP 17; TEMP 36.9; O2SAT 94
--- NOTE | 2018-11-26 12:17 | PT.INTREAT ---
Date of service: 11/26/18 Time of Service: 12:17 PT Notes Inpatient Physical Therapy Treatment Note [facility] Date: 11/26/18 PRECAUTIONS: Fall, WBAT L, contact SUBJECTIVE: Kayla states that she is not feeling well today. OBJECTIVE: PAIN: No c/o pain BED MOBILITY/TRANSFERS Rolling L/R: Min A with HOB flat Supine-sit: Min A with HOB flat Sit-stand: CGA Stand-sit: Min A GAIT Assistive Device: FWW Weight bearing: Full Assist: Min A Distance: 15' Deviation: Tactile cueing for FWW mechanics, shaky ASSESSMENT: Patient tolerated session with complaints of feeling general unwell and weak. She requires increased assist with transfers and gait due to shakiness and feeling weak. She would benefit from continued gait and transfer training as well as global strengthening for improved mobility and activity tolerance. PLAN: Continue with PT's POC TREATMENT CODE/TIME: Session 1: 30 minutes; 37110 x2
[2018-11-26] MEDS: Lactobacillus Acidophilus CAP 1 CAP PO ×2 (14:26→19:37)
--- NOTE | 2018-11-26 15:29 | PT.INNT ---
Date of service: 11/26/18 Time of Service: 15:30 PT Notes 11/26/18 Held afternoon PT session. Will attempt to resume PT services tomorrow morning, if appropriate.
--- NOTE | 2018-11-26 15:47 | CHAPLAIN ---
Kayla told me she was having a bad day because she is tired of not being believed. And then went on to tell me a story about her cat being cremated, when she didn't ask for that and couldn't afford it. Her complaints had nothing to do with her hospital stay. Later, she was told by FLAVIO Doshi, that she needed to drink liquid for a constrasting CT scan. Kayla was agreeable. Kayla has always been pleasant with me, likely because I don't have to make any demands of her. She said she would really like a backrub, and her nurse, Angie said she would look into for Kayla.
[2018-11-26 15:51] VITALS: BP 157/88; PULSE 86; RESP 17; TEMP 35.6; O2SAT 97
[2018-11-26] MEDS: Omnipaque 350 MG/ML 100 ML BTL IJ (15:54)
[2018-11-26] MEDS: Breeza Beverage 473 ML BTL PO (15:55)
[2018-11-26] MEDS: Omnipaque 350 MG/ML 50 ML BTL IJ ×2 (15:58→16:08)
--- NOTE | 2018-11-26 16:00 | DI.CT_ITS ---
SYMPTOM/DIAGNOSIS: ? RECTOVAGINAL FISTULA ABDOMEN AND PELVIC CT: The study was carried out with an intravenous injection of 100 cc's of Omnipaque 350 and 50 cc's of rectal contrast. Regions of bibasilar atelectasis are demonstrated. There is a moderate sized bilateral pleural effusion. The liver is unremarkable. The gallbladder is contracted. No stones or ductal dilatation is apparent. The pancreas is normal. The spleen is intact. The adrenals are normal. Note is made of mild perinephric stranding without evidence of obstructive uropathy. There is no evidence of bowel obstruction. Colonic diverticulosis is demonstrated without evidence of diverticulitis. In the appendix, there are three small, 2-3 mm. appendicoliths. There is nothing definite to suggest an acute appendix. A large heterogeneous fluid collection involving the left pelvic side wall/iliac muscles is identified. The collection measures up to 8.4 by 7.7 by 5.8 cm. There are mottled punctate regions of air with fecal appearing material within the collection with an adherent loop of descending colon. Mild pericolonic inflammatory changes are demonstrated. The findings are most consistent with a colonic fistula with pericolonic abscess formation. A small amount of free fluid is identified in the abdomen and pelvis. There is no evidence of an aortic aneurysm. There is no evidence of lymphadenopathy. Bladder wall thickening is demonstrated. The reproductive organs as visualized are unremarkable. Degenerative changes involving the lumbar spine are identified. Note is made of diffuse body wall subcutaneous edema bilaterally. SUMMARY: A large left pelvic side wall air containing abscess measuring up to 8.4 by 7.7 by 5.8 cm. is noted. There is an adherent loop of descending colon and mild pericolonic inflammatory change and fecal appearing material within the abscess that may represent a colonic fistula with abscess formation. Note is made of a small quantity of free fluid in the abdomen and pelvis. There is some thickening of the bladder wall which was present on a previous examination and most likely represents cystitis. Diffuse bladder wall subcutaneous emphysema is noted bilaterally. There are three small appendicoliths in the appendix which is only partially visualized with nothing specific to suggest an acute appendix. Note is also made of moderate bilateral pleural effusions.
--- NOTE | 2018-11-26 16:28 | WOUNDCARE ---
Wound Care Report Pt is a 59 year old female seen for pressure injuries and denuded skin. Chart reviewed, including H&P, recent labs, and vital signs, and other providers? reports. Medical Hx and labs pertinent to wound healing: Abnormal lab results 11/26/18 11/26/18 Range/Units 06:40 06:40 RBC 2.39 L (4.00-5.20) m/cumm Hgb 8.3 L (12.0-15.5) g/dL Hct 24.9 L (36.0-46.0) % MCV 104.2 H (80-95) fL MCH 34.7 H (27.0-33.0) pg Absolute Neutrophils 7.82 H (1.2-6.7) k/cumm Absolute Lymphocytes 0.61 L (1.2-3.4) k/cumm Sodium 134 L (136-145) mmol/L Creatinine 0.42 L (0.55-1.02) mg/dL Glucose 128 H (70-100) mg/dL Calcium 8.2 L (8.5-10.1) mg/dL Wound Hx if applicable Seen last week for initial wound consult. Seen today for follow up. Wounds as stated by pt were initiated by a fall sometime last week, and the act of dragging herself across the floor as stated by patient. Wound Assessment Findings Right forearm former skin tear site left open to air, no open areas noted, pt requested it left open. R hip pressure injury unstageable. Wound bed 100 percent fully adherent eschar, yellowish, with pink periphery. 2.4 cm x 3.3 cm x 0.1 cm. Scant brownish drainage noted on old dressing. R knee has two open areas measured. Superior area is approximately 80 percent yellowish firmly adherent slough with 20 percent red non- granulating tissue. Edges are pink/ reddish with no induration noted. Scant serous drainage on old dressing noted. Lower area is now two areas with an epithelial bridge in between. Total area 3.2 cm x 2.8 cm x 0.1 cm. The upper area has 100 percent firmly adherent black eschar with reddish edges, no induration noted. The bottom open area has approximately 80 percent yellow slough with 20 percent non granulating red tissue noted. Buttocks/ remington area has dull reddish/ pink skin with a few areas of full thickness skin loss (coccyx 1.9 cm x 0.9 cm x 0.1 cm, l buttocks 0.9 cm x 0.1 cm x 0.1 cm and right lower buttocks open area 1.5 cm x 0.9 cm x 0.1 cm). No drainage noted. Patients Mobility status Patient is followed by Physical Therapy and is very weak, pillows are being used for repositioning, heels offloaded as able. Nutritional Status- nutrition consult recommended Continence- Pt incontinent of bowel and bladder, using briefs at this time. Current Topical Treatment plan- Pt was using triple cream (clotrimazole, vitamin a and d and zinc in equal ratios) on buttocks, right rib chest area and remington area. The pressure injuries on right hip and knee were being treated with anasept gel and covered with mepilex. Response to care/treatment plan Areas of denuded skin on buttoclks/ remington area and right chest look better, less red and receeding. The areas on right hip and knee the eschar is softer and changed from brown to yellow since last evaluation. Recommendations: Continue to apply triple cream to right rib/ chest area as well as buttocks/ remington area TID and PRN. Right hip- cleanse with normal saline, pat dry, apply skin prep to periphery. Apply Santyl and cover with mepilex. Change daily and PRN. Right knee- cleanse with normal saline, pat dry, apply skin prep to periphery. Apply Santyl and cover with mepilex. Change daily and PRN. Apply skin prep to bilateral heels BID and PRN, offload as able. Thank you for the consult.
[2018-11-26] MEDS: Heparin 5,000 UNITS/ML VIAL 5000 UNITS SC (17:33)
--- NOTE | 2018-11-26 17:36 | DI.VRAD_ITS ---
Addendum created by Jose Scherer MD on 11/26/2018 5:43:49 PM EDT THIS REPORT CONTAINS FINDINGS THAT MAY BE CRITICAL TO PATIENT CARE. The findings were verbally communicated via telephone conference with Dr. Quesada at 5:41 PM EDT on 11/26/2018. In addition to the findings in the report it was discussed that there does appear to be a small amount of contrast within the vagina that may represent a recto vaginal fistula. This is discrete and from the descending colon process. The findings were acknowledged and understood. Initial report created on 11/26/2018 5:35:27 PM EDT EXAM: CT Abdomen and Pelvis With Contrast EXAM DATE/TIME: 11/26/2018 2:24 PM CLINICAL HISTORY: 58 years old, female; Other: ? Rectovaginal fistula; Additional info: Patient done with rectal contrast TECHNIQUE: Imaging protocol: Axial computed tomography images of the abdomen and pelvis with intravenous contrast. Coronal and sagittal reformatted images were created and reviewed. Radiation optimization: All CT scans at this facility use at least one of these dose optimization techniques: automated exposure control; mA and/or kV adjustment per patient size (includes targeted exams where dose is matched to clinical indication); or iterative reconstruction. Contrast material: OMNIPAQUE 350; Contrast volume: 100 ml; Contrast route: IV; COMPARISON: CT ABDOMEN PELVIS W 04/08/2018 11:40 AM FINDINGS: Lungs: There is moderate bibasilar atelectasis above the effusions. Pleural space: Moderate size bilateral pleural effusions are identified. Liver: Liver is unremarkable. Gallbladder and bile ducts: The gallbladder is contracted. Pancreas: Normal. No ductal dilation. Spleen: The spleen is normal. Adrenals: No adrenal mass is present. Kidneys and ureters: Mild bilateral perinephric stranding without evidence of obstructive uropathy. Stomach and bowel: There is a large amount of colonic diverticulosis. Appendix: 3 small 2-3 mm appendicoliths are present in a partially visualized appendix. Intraperitoneal space: There is a large heterogeneous fluid collection involving the left pelvic sidewall/iliacas muscle. The collection measures 8.4 x 7.7 x 5.8 cm. There is mottled punctate regions of air with fecal appearing material within the collection with an adherent loop of descending colon. There are mild pericolonic inflammatory changes adjacent to the apparent descending colon. This is most consistent with a colonic fistula with pericolonic abscess formation. There is a small amount of free fluid in the abdomen and pelvis. Vasculature: Significant atherosclerotic calcifications of the aorta and iliac arteries without evidence of aneurysm. Lymph nodes: Normal. No enlarged lymph nodes. Bladder: There is irregular thickening of the mucosa of the bladder wall. Reproductive: Unremarkable as visualized. Bones/joints: Degenerative changes of the lumbar spine without acute osseous abnormality. Soft tissues: There is diffuse body wall subcutaneous edema. IMPRESSION: 1. Large left pelvic sidewall air-containing abscess measuring 8.4 x 7.7 x 5.8 cm. There is an adherent loop of descending colon with mild pericolonic inflammatory changes and feculent appearing material within the abscess that may represent colonic fistula with abscess formation. 2. Small amount of free fluid in the abdomen and pelvis. 3. Irregular thickening of mucosa of the bladder wall. This was present previous and most likely represents cystitis however, underlying bladder mucosal lesion/neoplasm cannot be excluded. 4. Diffuse body wall subcutaneous edema. 5. 3 small 2-3 mm appendicoliths are present in the partially visualized appendix. 6. Moderate size bilateral pleural effusions. Dictated and Authenticated by: Jose Scherer MD. Ordering:ANITA Doshi MD
--- NOTE | 2018-11-26 18:35 | W.SURGCON ---
Date of service: 11/26/18 Time of Service: 14:45 Assessment and Plan (1) Abdominal abscess: Current visit: Yes Status: Acute The abscess and fistula may be related to diverticular disease or her recent colitis. She is basically asymptomatic except for the vaginal discharge and does not need emergent surgery. The patient is a very poor surgical candidate due to her multiple co-morbidities and malnutrition. I anticipate serious issues with healing at a minimum. I advise transfer to a tertiary care center for potential percutaneous drainage of the abscess and continued care. (2) Vaginal fistula: Current visit: Yes Status: Acute History of Present Illness Narrative: I was asked to see this patient today due to stool discharge from her vagina. The patient has been admitted for a prolonged hospital course related to pneumonia, COPD exacerbation and C. difficile. Her home situation is complicated by alcohol abuse. The patient is not aware of this discharge which was observed by nursing. She is essentially having fairly continuous stooling. Patient denies abdominal pain. She is tolerating a diet although has a typically poor p.o. intake. No nausea or vomiting. She has not had any fevers. Her white blood cell count today is normal. The patient reports no prior abdominal surgery. She did have a attempted flexible sigmoidoscopy in 2012 which could not be completed due to a tortuous sigmoid. A subsequent barium enema showed diverticulosis. The patient had a CT scan of the abdomen pelvis this afternoon which showed greater than 8 cm abscess between the left colon and pelvic wall with also a small amount of fluid in the pelvis. This is new compared to a CT scan from the end of 2018. Review of Systems Review of Systems Patient is a poor historian with very few complaints. ROS not felt to be reliable [facility] Medical History Arterial occlusive disease (Chronic 12/04/16) Continuous chewing tobacco dependence (Inactive 01/22/12) COPD (chronic obstructive pulmonary disease) (Suspected) Essential hypertension (Chronic 01/22/12) Foot pain, left (Chronic 12/04/16) Hyperlipidemia (Chronic 08/21/12) Hyperlipidemia (Chronic 08/21/12) Hypothyroidism (Chronic) Neuropathy (Chronic 12/07/16) Social History Smoking/Tobacco Use Status: Current every day Alcohol Intake: current Alcohol Intake frequency: 0-2 drinks per day Alcohol type: beer and hard liquor Drug use: Never Substance use type: does not use Housing: apartment current occupation: not working at this time Pets and animals: Yes Pets and animals: cat(s) What type of physical activity do you participate in: none Duration: 15-30 minutes/day Frequency: 5-6 times per week Seatbelt use: always Drive intox or ride w/intox jitney driver: No Working smoke detector in home: Yes Fire extinguisher in home: Yes Carbon monox detector in home: Yes Do you feel safe at home: Yes Do you feel safe in your relationship?: Yes Exam Narrative Exam Narrative: Appears poorly nourished but in no acute distress Alert and cooperative, poor historian Abdomen soft, completely non-tender Left lateral hip with 3cm ulceration, left lateral knee with about 2cm ulceration Results Last Vital Signs Temp 96.1 F L 11/26/18 15:51 Pulse 86 11/26/18 15:51 Resp 17 11/26/18 15:51 BP 157/88 H 11/26/18 15:51 Pulse Ox 97 11/26/18 15:51 Labs : 11/26/18 06:40 11/26/18 06:40 Laboratory Results - last 24 hr 11/26/18 11/26/18 11/26/18 06:40 06:40 06:40 WBC 9.18 D RBC 2.39 L Hgb 8.3 L Hct 24.9 L MCV 104.2 H MCH 34.7 H MCHC 33.3 RDW 14.4 Plt Count 324 MPV 9.7 Immature Gran % 0.5 Neutrophils % 85.2 Lymphocytes % 6.6 Monocytes % 6.4 Eosinophils % 1.3 Basophils % 0.0 Absolute Neutrophils 7.82 H Absolute Lymphocytes 0.61 L Absolute Monocytes 0.59 Absolute Eosinophils 0.12 Absolute Basophils 0.00 Sodium 134 L Potassium 4.1 D Chloride 100 Carbon Dioxide 23.4 Anion Gap 10.6 BUN 10 Creatinine 0.42 L Estimated GFR/1.73 m2 >= 60.00 Glucose 128 H Calcium 8.2 L Magnesium 2.0 Procalcitonin 4.1 Vancomycin Trough 11/26/18 09:00 WBC RBC Hgb Hct MCV MCH MCHC RDW Plt Count MPV Immature Gran % Neutrophils % Lymphocytes % Monocytes % Eosinophils % Basophils % Absolute Neutrophils Absolute Lymphocytes Absolute Monocytes Absolute Eosinophils Absolute Basophils Sodium Potassium Chloride Carbon Dioxide Anion Gap BUN Creatinine Estimated GFR/1.73 m2 Glucose Calcium Magnesium Procalcitonin Vancomycin Trough Cancelled
--- NOTE | 2018-11-26 18:49 | DSE_ITS ---
Date of service: 11/26/18 Time of Service: 18:50 DS: Diagnosis Discharge Diagnosis (1) Pelvic abscess: Status: Acute (2) Vaginal fistula: Status: Acute (3) Acute respiratory failure with hypoxia: Status: Acute (4) HCAP (healthcare-associated pneumonia): Status: Acute (5) COPD with acute exacerbation: Status: Acute (6) Hyponatremia: Status: Chronic (7) C. difficile colitis: Status: Acute (8) Alcohol use: Status: Acute (9) Failure to thrive: Status: Acute (10) Wounds and injuries: Status: Acute (11) Tobacco abuse: Status: Acute (12) Folate deficiency: Status: Acute (13) Pleural effusion: Status: Acute (14) UTI (urinary tract infection): Status: Acute (15) Anemia: Status: Chronic (16) Hypothyroidism: Status: Chronic (17) Arterial occlusive disease: Status: Chronic (18) Chronic malnutrition: Status: Acute Discharge Plan Disposition Patient Disposition: [facility] Condition: Serious Discharge Details Chief Complaint: GenMedical Clinical Impression: HCAP (healthcare-associated pneumonia), Hypomagnesemia, C. difficile colitis, Adult failure to thrive, Hypokalemia Reason For Visit: HCAP, FTT Admit Date/Time: 11/23/18 04:17 Admit Provider: Brian Weber Attending Provider: Brian Weber Primary Care Provider: Chidi Mccormack ED Provider: Gilmer Som[facility] Course Hospital Course: Ms Leon is a 58 year old female with PMHx of COPD, chronic hyponatremia, diagnosis of C. Diff colitis on previous admission, alcohol and tobacco abuse, question of mild alcoholic dementia, failure to thrive, chronic LLE pain, as well as PAD, who was readmitted to [facility] on 11/23/18 after just a few hours spent at home, during which she had consumed an unknown amount of alcohol and fallen. On admission, she was found to be hypoxic, in acute exacerbation of COPD due to a left retrocardiac infiltrate, presumably HCAP as she was just discharged from the hospital on 11/22/18. She was intiated on IV antibiotics, IV steroids, nebs. Her oxygen requirement improved rapidly from 5L to room air. Her bronchospasm is also significantly better, and her steroids can likely be d/c'ed in the next couple of days. She should complete her pulmonary antibiotics on 11/27/18. Her current antibiotic regimen is: Po vancomycin (to be finished on 11/27/18), IV flagyl, IV levofloxacin (day 4). IV vancomycin/IV rocephin have been d/c'ed. She does have evidence of bilateral pleural effusions which we do not believe are infected and a result of IV hydration for her acute on chronic hyponatremia (134 on day of transfer; 119 on presentation, combination of beer potomania and dehydration). She was always asymptomatic of her hyponatremia. The patient is being monitored for alcohol withdrawal, but so far this has not been a major issue on this admission. On 11/26/18, nursing noted stool in the vaginal vault. CT of the abdomen and pelvis was obtained, demonstrating a left pelvic side wall abscess adjacent to descending colon with air and fecal material contained within the abscess. There was no pneumoperitoneum. A vaginal fistula was not clearly visualized on this study, but may be there, but in a different area of the colon, per radiology. The patient does have small to moderate bilateral pleural effusions on this study. There is also evidence of cystitis - she is growing proteus in the urine culture, but is asymptomatic. It is also important to note that the patient has no abdominal pain whatsoever. Per Dr العلي of our surgical service, given the patient's poor nutritional status, she would be an extremely high risk candidate for a surgical procedure at our facility. Recommendation was made to transfer the patient to a tertiary care facility. [facility] was contacted - no surgical beds were available. Dr Campbell accepted the patient at [facility] under the surgical service. The patient consents to transfer. We appreciate the help of the [facility] medical team and wish her well. We also feel it is important to note that the patient may be a placement issue. She is not safe to return home. She would ideally benefit from rehab on discharge. A question of her capacity to make decision was raised, but it is felt by this provider that the patient can make her own medical decisions. 90 minutes were spent on care for patient as well as preparation of her transfer and paperwork on the day of transfer. Home Meds and New Rx's Prescriptions: No Action gabapentin 300 mg capsule 300 mg PO BID Qty: 90 RF: 11 diphenhydramine HCl [Benadryl] 25 MG capsule 25 mg PO DAILY PRNRF: 0 aspirin [Aspir-81] 81 MG tablet,delayed release (DR/EC) 81 mg PO DAILY RF: 0 metoprolol tartrate 50 mg tablet 50 mg PO BID Qty: 180 RF: 3 amlodipine 5 mg tablet 5 mg PO DAILY Qty: 90 RF: 3 levothyroxine 100 mcg tablet 100 mcg PO 0600 Qty: 90 RF: 3 acetaminophen [Tylenol] 325 mg Tablet 650 mg PO Q4H PRN PRNQty: 0 RF: 0 ipratropium-albuterol 0.5 mg-3 mg(2.5 mg base)/3 mL Solution For Nebulization 3 ml UPD Q6H PRN PRNQty: 0 RF: 0 zinc oxide 20 % Ointment 60 g topical TID Qty: 0 RF: 0 magnesium oxide 400 mg (241.3 mg magnesium) Tablet 800 mg PO BID Qty: 0 RF: 0 omeprazole 20 mg Capsule,Delayed Release(Dr/Ec) 20 mg PO DAILY@0730 Qty: 0 RF: 0 folic acid 1 mg Tablet 1 mg PO DAILY Qty: 0 RF: 0 clotrimazole 1 % Cream 60 g topical TID Qty: 0 RF: 0 vits A and D-white pet-lanolin Ointment 60 g topical TID Qty: 0 RF: 0 thiamine mononitrate (vit B1) [Vitamin B-1 (mononitrate)] 100 mg Tablet 100 mg PO DAILY Qty: 0 RF: 0 calcium carbonate 500 mg calcium (1,250 mg) tablet 500 mg PO BID Qty: 14 RF: 0 cyanocobalamin (vitamin B-12) 500 mcg lozenge 500 mcg PO DAILY Qty: 30 RF: 0 multivitamin tablet 1 tab PO DAILY Qty: 30 RF: 0 fluconazole 100 mg Tablet 100 mg PO DAILY Qty: 7 RF: 0 tramadol 50 mg Tablet 25 - 50 mg PO Q6H PRN PRN (Reason: Pain) Qty: 12 RF: 0 vancomycin 125 mg Capsule 125 mg PO Q6H Qty: 24 RF: 0 lidocaine [Lidoderm] 5 % Adhesive Patch,Medicated 1 patch topical DIRECTED Qty: 5 RF: 0 Discharge Instructions Activity:: Activity as Tolerated Equipment/Supplies:: No Equipment Needed Diet:: NPO after midnight. Discharge Orders Discharge Orders: Discharge Order (Routine); Ordered 07/16/19 Ordered By: Yoli Quesada Exam Narrative Exam Narrative: General: Frail middle-aged female, A&Ox3 (has a little difficulty with the exact date in November) HEENT: EOMI, MMM Heart: RRR, no m/r/g Lungs: Diminished breath sounds B, no wheezing heard GI: abdomen is soft, nontender, nondistended Extremities: No e/c/c BLE's, a small cut on 2nd toe LLE, trace pulses B DS: Data Vitals/I&O Vitals and I&O: Vital Signs Temperature 35.6 C L 11/26/18 15:51 Temperature Source Tympanic 11/26/18 15:51 Pulse 86 11/26/18 15:51 Pulse Rhythm Regular 11/26/18 08:30 Pulse 111 H 11/23/18 03:20 Respiratory Rate 17 11/26/18 15:51 Respiratory Effort 11/26/18 17:03 Respiratory Depth Shallow 11/26/18 17:03 Respiratory Pattern Normal 11/26/18 17:03 Blood Pressure 157/88 H 11/26/18 15:51 Blood Pressure Mean 87 11/23/18 03:16 Pulse Oximetry 97 11/26/18 15:51 Oxygen Delivery Method Room Air 11/26/18 15:51 Oxygen Flow Rate 0 11/26/18 15:51 Pain Level 10 11/26/18 15:51 Comment 11/25/18 15:14 Intake & Output 11/25/18 11/26/18 11/26/18 23:59 11:59 23:59 Intake Total 905 / 1965 490 / 490 Balance 905 / 1965 490 / 490 Weight 41.2 kg Intake: IV 425 / 825 250 / 250 Oral 480 / 1140 240 / 240 Other: Urine Color Yellow Comment diaper heavely saturated. patient was inc of B&B. She was changed and given skin care prior to radiology Stool Size Small Moderate Smear Stool Characteristics Soft Soft Liquid Liquid Brown Brown Gonzalez Voiding Methods Diaper Diaper Incontinent Incontinent Completed studies during hospitalization [Text1]: CXR 11/23/18: Left retroc ardiac infiltrate. This may represent pneumonia or atelectasis. Small left pleural effusion. CT abdomen/pelvis 11/23/18: 1. Large left pelvic sidewall air-containing abscess measuring 8.4 x 7.7 x 5.8 cm. There is an adherent loop of descending colon with mild pericolonic inflammatory changes and feculent appearing material within the abscess that may represent colonic fistula with abscess formation. 2. Small amount of free fluid in the abdomen and pelvis. 3. Irregular thickening of mucosa of the bladder wall. This was present previous and most likely represents cystitis however, underlying bladder mucosal lesion/neoplasm cannot be excluded. 4. Diffuse body wall subcutaneous edema. 5. 3 small 2-3 mm appendicoliths are present in the partially visualized appendix. 6. Moderate size bilateral pleural effusions. Blood cultures x 2 11/23/18: NGTD Urine C&S 11/22/18: Proteus hauseri (2 different strains) Ampicillin R R Ampicillin/Sulbactam S S Cefazolin R R Ceftazidime S S Ceftriaxone S S Ciprofloxacin S S Gentamicin S S Imipenem S I Levofloxacin S S Nitrofurantoin R R Piperacillin/Tazobactam S S Tobramycin S S Trimethoprim/Sulfamethoxazole S S Labs on day of discharge: Labs from last 24 hours 11/26/18 11/26/18 11/26/18 09:00 06:40 06:40 WBC 9.18 D RBC 2.39 L Hgb 8.3 L Hct 24.9 L MCV 104.2 H MCH 34.7 H MCHC 33.3 RDW 14.4 Plt Count 324 MPV 9.7 Immature Gran % 0.5 Neutrophils % 85.2 Lymphocytes % 6.6 Monocytes % 6.4 Eosinophils % 1.3 Basophils % 0.0 Absolute Neutrophils 7.82 H Absolute Lymphocytes 0.61 L Absolute Monocytes 0.59 Absolute Eosinophils 0.12 Absolute Basophils 0.00 Sodium Potassium Chloride Carbon Dioxide Anion Gap BUN Creatinine Estimated GFR/1.73 m2 Glucose Calcium Magnesium Procalcitonin 4.1 Vancomycin Trough Cancelled 11/26/18 06:40 WBC RBC Hgb Hct MCV MCH MCHC RDW Plt Count MPV Immature Gran % Neutrophils % Lymphocytes % Monocytes % Eosinophils % Basophils % Absolute Neutrophils Absolute Lymphocytes Absolute Monocytes Absolute Eosinophils Absolute Basophils Sodium 134 L Potassium 4.1 D Chloride 100 Carbon Dioxide 23.4 Anion Gap 10.6 BUN 10 Creatinine 0.42 L Estimated GFR/1.73 m2 >= 60.00 Glucose 128 H Calcium 8.2 L Magnesium 2.0 Procalcitonin Vancomycin Trough Preliminary micro results at discharge 11/23/18 08:50 Blood Culture - Preliminary Blood NO GROWTH 72 HOURS 11/23/18 08:40 Blood Culture - Preliminary Blood NO GROWTH 72 HOURS [facility] Medical History (Updated 11/26/18 @ 19:56 by Yoli Quesada MD) Arterial occlusive disease (Chronic Unknown) Continuous chewing tobacco dependence (Inactive 01/22/12) COPD (chronic obstructive pulmonary disease) (Suspected) CRPS 1, lower extremity (Acute) Essential hypertension (Chronic 01/22/12) Foot pain, left (Chronic 12/04/16) Hyperlipidemia (Chronic 08/21/12) Hyperlipidemia (Chronic 08/21/12) Hypothyroidism (Chronic) Neuropathy (Chronic 12/07/16) Palliative care patient (Acute) Wernicke-Korsakoff syndrome (Acute) Family History (Updated 11/26/18 @ 19:26 by Kayla Yusuf MD) Son Parent-child estrangement nec Father No problems noted. Mother Murder Brother Assault by being hit or run over by motor vehicle, sequela Social History (Updated 11/26/18 @ 19:23 by Kayla Yusuf MD) Smoking/Tobacco Use Status: Current every day Quit status: not considering quitting Counseling given: counseling >3 minutes Alcohol Intake: current Alcohol Intake frequency: 0-2 drinks per day Alcohol type: beer and hard liquor Counseling given: Yes Counseling provided: reduce to 2 or less/day Drug use: Never Substance use type: does not use Caregiver/Support person: No Household members: none Housing: apartment Number of Children: 1 Communication Needs: Corrective Lenses Education Level: high school Do you need help understanding health information?: Always current occupation: not working at this time Pets and animals: Yes Pets and animals: cat(s) What is your relationship status?: never How often do you talk on the phone with friends or family?: twice per week How often do you get together with friends or relatives?: twice per week Panel score (0-1 are the most socially isolated patients): 1 What type of physical activity do you participate in: none and sedentary lifestyle Duration: 15-30 minutes/day Frequency: 5-6 times per week Special carlie needs: No Agree to transfusion: Yes Seatbelt use: always Drive intox or ride w/intox dedicated intermodal 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 Has not been back to work since then. Twice has been found down, with elevated etoh level, covered in feces. Not doing well x 7 months. She c/o pain left foot, severe, unable to walk/work due to pain, per her report.
[2018-11-26] MEDS: Lidocaine 5% Patch 1 PATCH TP (19:36)
[2018-11-26] MEDS: Famotidine 20 MG TAB PO (19:38)
[2018-11-26] MEDS: metroNIDAZOLE 500 MG/100 ML BAG 100 MG IVPB (20:22)
[2018-11-26 20:46] VITALS: BP 143/86; PULSE 81; RESP 17; TEMP 36; O2SAT 92
--- NOTE | 2018-11-26 21:33 | CMPROGNOTE_ITS ---
- If Service Date Differs Date of service: 11/26/18 Time of Service: 21:34 Care Management Progress Note S/O: Kayla was seen by CM this afternoon. Kayla talked about a planned surgical procedure for later today. She was concerned, she said, but not worried. Kayla also shared her concerns for her future. She expressed a strong desire to go home and to be able to return to work. She verbalized that she knew she needed to go to rehab to get stronger first. CM offered support and will continue to follow. A:Kayla is a 58 year old woman admitted to [facility] with pneumonia on 11/23/18. P: Kayla has developed a pelvic abscess by Xray. The plan is to send her to [facility] for surgical intervention because of her high risk status. CM will continue to support Kayla through the transfer process.
[2018-11-27] MEDS: Vancomycin 125 MG CAP PO ×4 (00:55→17:11)
[2018-11-27 01:02] VITALS: BP 152/80; PULSE 88; RESP 16; TEMP 36.2; O2SAT 92
[2018-11-27 03:25] VITALS: BP 135/87; PULSE 86; RESP 17; TEMP 37.1; O2SAT 93
[2018-11-27] MEDS: metroNIDAZOLE 500 MG/100 ML BAG 100 MG IVPB ×2 (03:36→12:33)
[2018-11-27] MEDS: Levothyroxine 100 MCG TAB PO (05:19)
[2018-11-27] MEDS: methylPREDNISolone SUCC 40 MG VIAL IVP ×2 (05:20→17:11)
[2018-11-27] MEDS: levoFLOXacin 500 MG/100 ML BAG 100 MG IVPB (05:20)
--- NOTE | 2018-11-27 06:54 | W.NUTCONSULT ---
Date of service: 11/27/18 Time of Service: 06:54 Nutritional Consult ASSESSMENT: Appreciate nutrition consult for wound healing. Kayla is 58 years old with BMI 16 and multiple co-morbidities now with apparent fistula. Have met with Kayla who is not receptive to adding high caloric foods to her meal, or eating her regular meal. Discussed supplements, snack foods, preferences for meat to increase her protein intake. Discussed drinking some of her calories but she insists on drinking water. She has not been receptive to food ideas to help her maintain her current weight even at an underweight status, and certainly not to improve her nutritional status to fight infection. She has strong opinions about all foods suggested and offered. Despite many efforts to help her ingest calories, she is strongly determined to eat only what she wants. Her medical record indicates she received many of her calories from alcohol prior to admission. NUTRITIONAL DIAGNOSIS: Underweight with poor nutritional status as evidenced by BMI and poor healing ability. INTERVENTION: She is offered Joesph to help with healing. Will suggest tube feeding for her if she is willing to increase her nutrient and caloric intake if she refuses to eat food offered. MONITORING AND EVALUATION: Will meet with her again and suggest tube feeding if warranted by her health status. Will follow her weight changes. Time Spent in Nutritional Counseling and Treatment: 0
[2018-11-27 07:08] LABS: Abs Immature Grans 0.07 k/cumm (0.0-0.09); Absolute Basophil Count 0.01 k/cumm (0.0-0.2); Absolute Eosinophil Count 0.69 k/cumm (0.0-0.7); Absolute Lymphocyte Count 1.04 k/cumm (1.2-3.4); Absolute Monocyte Count 0.91 k/cumm (0.11-0.7); Absolute Neutrophil Count 6.58 k/cumm (1.2-6.7); Basophils % 0.1; Eosinophils % 7.4; HCT 25.9 % (36.0-46.0); HGB 8.6 g/dL (12.0-15.5); Immature Grans % 0.8; Lymphocytes % 11.2; Mean Corp. HGB Concentration 33.2 g/dL (32.0-36.0); Mean Corpuscular Hemoglobin 34.5 pg (27.0-33.0); Mean Platelet Volume 9.6 fL (8.0-11.0); Monocytes % 9.8; Neutrophils % 70.7; Platelet Count 366 x1000/uL (130-400); RBC 2.49 m/cumm (4.00-5.20); RBC Distribution Width 14.3 % (11.7-14.6)
[2018-11-27 07:30] VITALS: BP 144/85; PULSE 79; RESP 20; TEMP 36.4; O2SAT 96
[2018-11-27 07:30] LABS: Anion Gap 10.3 mmol/L (3-11); BUN 10 mg/dL (7-18); CO2 25.7 mmol/L (21.0-32.0); Calcium 8.2 mg/dL (8.5-10.1); Chloride 97 mmol/L (98-107); Glucose 119 mg/dL (70-100); Magnesium 1.8 mg/dL (1.8-2.4); Potassium 3.4 mmol/L (3.5-5.1); Sodium 133 mmol/L (136-145)
[2018-11-27 07:51] LABS: Procalcitonin 1.9 ng/mL
[2018-11-27] MEDS: Budesonide/Formoterol 160/4.5 6 GM 60 PUFF INH IH (08:03)
[2018-11-27] MEDS: Acetaminophen 325 MG TAB 650 MG PO (08:33)
[2018-11-27] MEDS: Metoprolol 50 MG TAB PO (08:34)
[2018-11-27] MEDS: Famotidine 20 MG TAB PO (08:35)
[2018-11-27] MEDS: Aspirin E.C. 81 MG TABEC PO (08:35)
[2018-11-27] MEDS: Fluconazole 100 MG TAB PO (08:36)
[2018-11-27] MEDS: Gabapentin 300 MG CAP PO (08:36)
[2018-11-27] MEDS: Folic Acid 1 MG TAB PO (08:37)
[2018-11-27] MEDS: Magnesium Oxide 400 MG TAB 800 MG PO (08:38)
[2018-11-27] MEDS: Lactobacillus Acidophilus CAP 1 CAP PO ×2 (08:38→14:50)
[2018-11-27] MEDS: Furosemide 20 MG/2 ML VIAL IVP (08:40)
[2018-11-27] MEDS: Normal Saline Flush 10 ML SYR IVP ×3 (08:40→17:12)
[2018-11-27] MEDS: Thiamine 100 MG TAB PO (08:43)
[2018-11-27] MEDS: Cyanocobalamin 500 MCG TAB PO (08:43)
[2018-11-27] MEDS: Multivitamin TAB 1 TAB PO (08:43)
[2018-11-27] MEDS: Calcium Carbonate 1.25 GM TAB PO (08:44)
[2018-11-27] MEDS: Collagenase 30 GM TUBE TP (08:45)
[2018-11-27] MEDS: Potassium Chloride 20 MEQ TABCR 40 MEQ PO (09:33)
--- NOTE | 2018-11-27 10:30 | OT.INNT ---
Date of service: 11/27/18 Time of Service: 10:15 Occupational Therapy Notes 11/27/18 OT went in to see pt, pt states that she is depressed and irritated that she is unable to eat the food that she wants too. Pt denies the need for OT services today and reports that she will not perform any ADLs until someone gives her a time as to when she will be having her surgery. Pt then states that they only place she wants to be washed is her [place] area and that She is not doing this. Jane Gomez, OTR/[facility]
[2018-11-27 11:10] VITALS: BP 132/75; PULSE 64; RESP 18; TEMP 36.2; O2SAT 97
--- NOTE | 2018-11-27 12:32 | PT.INNT ---
Date of service: 11/27/18 Time of Service: 12:33 PT Notes 11/27/18 Hold PT, due to change in medical status.
--- NOTE | 2018-11-27 14:32 | CHAPLAIN ---
Kayla told me about plans to transfer her to [facility] for surgery because, as she explained, I have a small tear between my rectum and vaginal area. She later to her Coat Examiner, Vika, that she wasn't able to have anything to drink because of the surgery, and she said she didn't know why she needed to have the surgery. Vika explained that she would better after the surgery and told Kayla she has pelvic abscess. Kayla told Vika and I that no one had told her that yet. She may not be remembering conversations correctly. She asked about having something to drink and Vika got her some water and ordered some broth for her. Kayla is agreeable to the surgery, but frustrated that she can't be given more precise information about when she'll leave for [facility]. So far nursing knows that she may be transferred this afternoon, tonight, or tomorrow, depending on when a bed opens up at [facility].
[2018-11-27 16:10] VITALS: BP 143/82; PULSE 82; RESP 17; TEMP 36.5; O2SAT 96
--- NOTE | 2018-11-27 17:00 | INDS_ITS ---
Date of service: 11/27/18 PT Notes Inpatient Physical Therapy Discharge Summary Dates: 11/27/2018 Dates of Service: 11/24/2018 through 11/27/2018 This is a clinical summary of care provided on the duration of dates listed above. No charge was made in the completion of this documentation. Referring Doctor: Yoli Quesada MD PT Orders: PT CONSULT: Generalized weakness, hypothyroidism, hyponatremia, falling at home Precautions: Fall. Contact precautions. Patient Profile/Admitting Diagnosis: Patient is transferred today to [facility] for immediate medical attention for change in medical status. Patient is a 58-year-old female readmitted on 11/23/18 s/p recent discharge home for HCAP, and FTT. She presents with past medical history significant for arterial occlusive disease, neuropathy, foot pain, history of ETOH abuse, and hypothyroidism who presented to the ED via EMS on 11/23/2018 with chief complaints of diarrhea, weakness, dehydration, failure to thrive. Patient was diagnosed with Alcohol withrawal, multiple wounds in B UE/LE, folate deficiency, and tobacco abuse. Feferral for physical therapy was made to address impairments in strength, balance, and mobility level. PMHX: Medical History Continuous chewing tobacco dependence (Inactive 01/22/12) Hyperlipidemia (Chronic 08/21/12) Neuropathy (Chronic 12/07/16) Hyperlipidemia (Chronic 08/21/12) Foot pain, left (Chronic 12/04/16) Essential hypertension (Chronic 01/22/12) Arterial occlusive disease (Chronic 12/04/16) Hypothyroidism (Chronic) Social History/Home Situation: Patient lives at alone in an apartment in [place], [place]. She states she is independent with all aspects of ADLs without assistive ambulatory devices nor adaptive equipment. She reports she has worked for a long time at [employer], third shift. She does not drive. She further states that she is currently on medical leave back home and resume work. Equipment Owned/DME: None. Subjective: NT Objective: General Observation: NT Mental Status: NT Pain: NT ROM: Right Upper Extremity: Shoulder Flexion 0-80. Shoulder abduction 0-60. Elbow flexion WFL. Wrist flexion WFL. Functional opening and closing of hand WFL. Left Upper Extremity: Shoulder Flexion WFL. Shoulder abduction WFL. Elbow flexion WFL. Wrist flexion WFL. Functional opening and closing of hand WFL. Right Lower Extremity: Hip flexion WFL. Hip abduction WFL. Knee flexion WFL. Ankle dorsiflexion WFL. Ankle plantarflexion WFL. Left Lower Extremity: Hip flexion WFL. Hip abduction WFL. Knee flexion WFL. Ankle dorsiflexion WFL. Ankle plantarflexion WFL. STRENGTH: Right Upper Extremity: Shoulder flexors 3-/5. Shoulder abductors 3-/5. Elbow flexors 4/5. Elbow extensors 4/5. Hoop Riveter strong. Left Upper Extremity: Shoulder flexors 4/5. Shoulder abductors 4/5. Elbow flexors 4/5. Elbow extensors 4/5. Hoop Riveter strong. Right Lower Extremity:Hip flexors 3+/5. Hip abductors 3+/5. Knee flexors 3+/5. Knee extensors 4-/5. Ankle dorsiflexors 4/5. Ankle plantarflexors 4/5. Left Lower Extremity: Hip flexors 3+/5. Hip abductors 3+/5. Patient was able to tolerate minimal resistance provided to hip and knee extension in supine. Knee flexors 3+/5. Knee extensors 4-/5. Ankle dorsiflexors 4/5. Ankle plantarflexors 4/5. Sensation: Intact as to pain and pressure to B LE. BED MOBILITY LEVELS/TRANSFERS Supine to sit minimal assist of 1 Sit to supine minimal asist of 1 Sit to stand: mod assist of 1 with use of FWW Stand to sit minimal assist of 1 Bed to chair moderate assist of 1 with use of FWW Chair to bed moderate assist of 1 with use of FWW Gait: Patient took 3 to 5 steps from bed to chair. She sat up minimally and wanted to go back to bed due to the irritation of her buttocks. Placed sheep skin under her bottom in bed for reduced irritation. Balance: Static Sitting: Fair Dynamic Sitting: Fair Static Standing: Fair Dynamic Standing: Poor Special Tests: Mobility Limitations Standardized Measure [facility] 6 clicks Basic Mobility Inpatient Short Form: Raw Score: 15 CMS Score: 57.7% deficit Assessment: Patient is a 58 year old female referred to physical therapy services with the diagnosis of hyponatremia, generalized weakness, left foot pain, buttock pain.. Patient presents with clinical signs and symptoms consistent with current/admitting diagnoses that have resulted to mobility limitations, gait instability, generalized weakness, and impairment of motor control as demonstrated by the following impairment level findings: 1. Decreased strength to B LE major muscle groups 2. Impaired sitting/standing balance 3. Impaired activity tolerance 4. Multiple pressure areas on sacral and heels, multiple wounds on B hands and B knees Impairments are contributing to the following functional limitations: 1. Dependent bed mobility skills 2. Increased dependence with transfers 3. Inability to safely ambulate without assistive device and physical assistance 4. Increase completion time for mobility ADL performance 5. Increased fall risk 6. Inability to negotiate steps alone safely Goals: Goals X1 week 1. Supine-Sit independent NOT MET 2. Sit-Supine independent NOT MET 3. Sit-Stand independent NOT MET 4. Stand-Sit independent NOT MET 5. Bed-Chair independent NOT MET 6. Chair-Bed independent NOT MET 7. Independent gait on level surface with use of least restrictive device for at least 300 feet without report of pain nor dyspnea NOT MET 8. Independent stair negotiation while holding onto bilateral rails for at least 10 steps without report of pain nor dyspnea NOT MET 9. Independent with home exercise program NOT MET 10. Good static and dynamic standing balance/tolerance NOT MET DISCHARGE RECOMMENDATIONS: Patient will benefit from fdc facility placement in order to maximize functional mobility level. Patient benefit from a front wheeled walker to maximize mobility and reduce fall risk TREATMENT CODE/TIME: ARIAN. Thank you very much for this referral. Kenia Saba PT, DPT, CLT [facility]
--- NOTE | 2018-11-28 07:49 | OTDS_ITS ---
Date of service: 11/28/18 Time of Service: 07:49 Occupational Therapy Notes Occupational Therapy Inpatient Discharge Summary Date: 11/28/18 Dates of Service: 11/25/18-11/28/18 Referring Doctor:Yoli Quesada MD OT Orders: Eval and treat Precautions: Contact/Fall PATIENT PROFILE/ADMITTING DIAGNOSIS: Pt is a 58 year old female admitted through the ER after returning home for hours after stay at [facility], she was admitted again with dx of HCAP, hypomagnesemia, c-diff colitis, failure to thrive, hypokalemia, difficulty breathing with confusion. Past Medical History: Continuous chewing tobacco dependence (Inactive 01/22/12) Hyperlipidemia (Chronic 08/21/12) Neuropathy (Chronic 12/07/16) Hyperlipidemia (Chronic 08/21/12) Foot pain, left (Chronic 12/04/16) Essential hypertension (Chronic 01/22/12) Arterial occlusive disease (Chronic 12/04/16) Hypothyroidism (Chronic) Social History/Home Situation: Pt lives alone in an apartment. She does not use any devices for functional mobility. At Baseline pts ADLs are performed at the following level of function- Eating-(I) Grocery Shopping- Shops when she needs to, however states that she freezes all of her food and just eats it over the months. She states that she very rarely goes to get food. Cooking- Microwave Sleeping-(I) Dressing- (I) Bathing- Only has a bathtub no shower. She states its an old claw foot tub and she does this (I). Pt admits she is not able to perform this at her home and that she feels that she can get in the tub but cannot get out of the tub. Driving- Does not drive, states she walks everywhere Work- Works at [employer] in [place] 3rd shift. Has had multiple dramatic experiences in the work place. She has not returned to her work demands since last admission to [facility]. Support- Pt states that she has very limited social support and that no one ever comes to check on her. She reports multiple times that she has no one who really cares about her. Pets- A cat Equipment owned/DME: Pt states she does not need this. Although OT does feel that pt is not at her baseline level of function and will require DME in order to perform her ADLs at home. SUBJECTIVE:NT THIS DOCUMENT SERVES A SUMMARY OF CARE WITH NO SKILLED OT SERVICES PROVIDED FOR THIS DOCUMENTATION. OBJECTIVE: Strength: RUE Shoulder flexion 4/5, elbow 3-/5, oncology pharmacist 4/5 L UE Shoulder flexion 4/5, elbow 3+/5, oncology pharmacist 4/5 ROM: RUE AROM WNL LUE AROM WNL FUNCTIONAL MOBILITY/ADLS: Transfers Supine-sit (I) Sit-supine (I) BATHING Mod (A) throughout for UE/LE DRESSING Dressing UE Mod (A) [facility] position Dressing LE max (A) don and doff (B) socks, pt is functionally not able to perform bending at hips to reach LE due to per pain GROOMING Pt denies. TOILETING Mod (A) on toilet BALANCE: Static sitting Normal Dynamic Sitting Good Static Standing Fair Dynamic Standing Fair ASSESSMENT: Patient is a 58-year-old female referred to occupational therapy services with diagnosis of generalized weakness,HCAP, hypomagnesemia, c-diff colitis, failure to thrive, hypokalemia, difficulty breathing with confusion. Patient was seen for 2 skilled OT sessions. She had a significant decline in her medical status and was transferred to [facility] for a surgical procedure. GOALS-Not met 1. Transfers FWW (I) 2. Dressing mod (I) with use of adaptive equipment 3. Bathing (I) standing at sink 4. Toileting (I) on toilet 5. Eating (I) 6. Pt will be able to stand at sink with FWW to brush her teeth and hair (I). PLAN OF CARE/TREATMENT PLAN: Discharge from skilled OT services. DISCHARGE RECOMMENDATIONS Pt was discharged to [facility] for surgical procedure. TREATMENT TIME/MINUTES/CODES N/A Jane Gomez OTR/L [facility]
== END 2018-11-27 17:09 | DRG 189 ==
LOC: ER 04:40 → MS 05:22
PROVIDERS: Nurse Practitioner Family; Admitting Provider General Practice; Emergency Provider Emergency Medicine; PCP Family Medicine; Visit Provider Internal Medicine
DX: J96.01 Acute respiratory failure with hypoxia (principal); J18.9 Pneumonia, unspecified organism; J44.0 Chronic obstructive pulmonary disease with (acute) lower respiratory infection; J44.1 Chronic obstructive pulmonary disease with (acute) exacerbation; N73.0 Acute parametritis and pelvic cellulitis; N82.3 Fistula of vagina to large intestine; A04.72 Enterocolitis due to Clostridium difficile, not specified as recurrent; E87.1 Hypo-osmolality and hyponatremia; Y95 Nosocomial condition; R62.7 Adult failure to thrive; R09.02 Hypoxemia; E83.42 Hypomagnesemia; E87.6 Hypokalemia; I10 Essential (primary) hypertension; F10.10 Alcohol abuse, uncomplicated; M25.572 Pain in left ankle and joints of left foot; G89.29 Other chronic pain; F17.210 Nicotine dependence, cigarettes, uncomplicated
CPT/HCPCS: 36415; 36573; 76942; 80048; 80051; 82805; 84145; 87040; 94640; 96365; 96375; 97110; 97162; 97166; 97530; 97535; 99222; 99232; 99233; 99239; 99254; 99285; 36600; 71045; 74177; 80202; 80320; 83605; 83735; 85025; 99284; J0696; J0713; J1644; J1941; J1956; J2405; J2930; J3475; J3490; J7620; Q9967

== ENCOUNTER 2019-02-03 11:07 | Emergency (ER) | payer BC, SELFPAY ==
[2019-02-03] VITALS (200 sets, daily range): BP systolic 60–135; BP diastolic 38–89; PULSE 57–91; RESP 9–41; TEMP 29.8–33.4; O2SAT 75–100
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
[2019-02-03] MEDS: Normal Saline 1,000 ML 1000 ML IV ×2 (11:15→13:00)
--- NOTE | 2019-02-03 11:15 | DI.CT_ITS ---
EXAM: CT HEAD CERVICAL SPINE WO CLINICAL HISTORY: altered, hypothermic, ams. TECHNIQUE: Noncontrast enhanced CT examination was carried out. COMPARISON: CT HEAD WO from 09/05/2018 FINDINGS: There is no evidence of an intra or extra-axial hemorrhage or mass. The morales-white matter differentia tion is maintained. Small regions of diminished absorption in the frontoparietal white matter bilate rally would be consistent with small vessel disease. The ventricles are intact. There is no evidenc e of a skull fracture. The paranasal sinuses appear unremarkable. There is no evidence of a mastoid effusion. At C4-5 there is disc narrowing, discogenic sclerosis and hypertrophic spurring. Degenerative changes in c-spine. No fracture or dislocation. There is some narrowing of the neural canal at this level. There is no evidence of significant foraminal narrowing. Also disc narrowing is noted at C5-C6 and C 6-C7. Facet joint DJD is most advanced at C4 through C7. Posterior elements are intact. The odontoi d is intact and is closely applied to the anterior arch of C1. IMPRESSION: No acute intracranial abnormality is demonstrated. No evidence of an acute fracture or subluxation. There are degenerative changes as described above.
--- NOTE | 2019-02-03 11:16 | DI.RAD_ITS ---
EXAM: XR CHEST 1V IN DI DEPT INDICATION: altered, hypothermia. COMPARISON: Portable Chest from 11/23/2018 TECHNIQUE: 2D digital imaging was performed. FINDINGS: The lungs are well expanded and free of infiltrate. A small portion of the left costophrenic angle a nd left lower lobe are coned from the present exam. There is no evidence of a pleural effusion. The cardiovascular structures appear intact. IMPRESSION: No evidence of acute cardiopulmonary disease.
[2019-02-03 11:31] LABS: BE (Venous) -2.6 mmol/L (-3-3); HCO3 (Venous) 24 mmol/L (22-28); O2 Sat (Venous) 55 % (70-80); TCO2 (Venous) 22 mmol/L (22-29); pCO2 (Venous) 47 mm/Hg (34-47); pH (Venous) 7.31 (7.32-7.43); pO2 (Venous) 32 mm/Hg (28-44)
[2019-02-03 11:32] LABS: Abs Immature Grans 0.03 k/cumm (0.0-0.09); Absolute Basophil Count 0.01 k/cumm (0.0-0.2); Absolute Lymphocyte Count 0.41 k/cumm (1.2-3.4); Absolute Monocyte Count 0.44 k/cumm (0.11-0.7); Absolute Neutrophil Count 9.03 k/cumm (1.2-6.7); Basophils % 0.1; HCT 33.2 % (36.0-46.0); HGB 12.7 g/dL (12.0-15.5); Immature Grans % 0.3; Lymphocytes % 4.1; Mean Corpuscular Hemoglobin 32.6 pg (27.0-33.0); Mean Corpuscular Volume 85.1 fL (80-95); Mean Platelet Volume 10.1 fL (8.0-11.0); Monocytes % 4.4; Neutrophils % 91.1; Platelet Count 162 x1000/uL (130-400); RBC Distribution Width 12.8 % (11.7-14.6); White Blood Cell Count 9.92 k/cumm (4.4-10.8)
[2019-02-03 11:36] LABS: Lactate 2.3 mmol/L (0.6-1.4)
[2019-02-03 11:46] LABS: Ammonia 28 umol/L (11-32); INR 1.1 (0.9-1.1); PTT Activated 31.9 sec (21.0-31.4); Prothrombin Time 11.1 sec (9.3-11.0)
[2019-02-03 11:50] LABS: ALT 76 U/L (14-59); AST 122 U/L (15-37); Albumin 3.6 g/dL (3.4-5.0); Alkaline Phosphatase 135 U/L (46-116); Anion Gap 15.7 mmol/L (3-11); BUN 27 mg/dL (7-18); Bilirubin, Total 0.6 mg/dL (0.2-1.0); CO2 23.3 mmol/L (21.0-32.0); CREATININE 0.84 mg/dL (0.55-1.02); Calcium 9.1 mg/dL (8.5-10.1); Glucose 137 mg/dL (70-100); Total Protein 6.6 g/dL (6.4-8.2)
[2019-02-03 11:53] LABS: Troponin I < 0.05 ng/mL (0.00-0.06)
[2019-02-03 12:02] LABS: Lipase 1270 U/L (73-393); NT-proBNP 594 pg/mL; TSH (W/Ref FT4) 3.09 uIU/mL (0.36-3.74)
[2019-02-03 12:05] LABS: Chloride 68 mmol/L (98-107)
[2019-02-03 12:14] LABS: Magnesium 1.7 mg/dL (1.8-2.4)
[2019-02-03 12:15] LABS: ETHANOL BLOOD < 3.0 mg/dL (<3)
[2019-02-03 12:17] LABS: Mean Corp. HGB Concentration 38.3 g/dL (32.0-36.0)
[2019-02-03] MEDS: THIAMINE 100 MG in Normal Saline 100 ML 200 MG IVPB (12:44)
[2019-02-03] MEDS: POTASSIUM CHLORIDE 20 MEQ/100 ML BAG 50 MEQ IVPB (12:46)
[2019-02-03] MEDS: MAGNESIUM SULFATE 1 GM/100 ML BAG IVPB (12:46)
[2019-02-03 13:01] LABS: Bilirubin Small (Negative); Blood Small (Negative); Clarity Clear (Clear); Glucose Negative (Negative); Ketones 15 mg/dL (Negative); Leukocyte Esterase Negative (Negative); Nitrite Negative (Negative); Urobilinogen 0.2 EU/dL (Up TO 0.2)
[2019-02-03 13:07] LABS: *AMPHETAMINES SCREEN URINE Negative (Negative); *BARBITURATES SCREEN URINE Negative (Negative); *BENZODIAZEPINES SCREEN URINE Negative (Negative); Cannabinoids THC Negative (Negative); Cocaine Screen,Urine Negative (Negative); METHADONE URINE SCREEN Negative (Negative); OPIATES URINE SCREEN Negative (Negative)
[2019-02-03 13:08] LABS: Tricyclic Antidepressants Negative (Negative)
[2019-02-03 13:18] LABS: Bacteria Few HPF (Negative); Epithelial Cells Few HPF (Negative)
[2019-02-03 13:19] LABS: C & S Indicated? Yes; Casts 0-2 Hyaline LPF (Negative); Crystals Negative HPF (Negative); Mucus Trace (Negative)
[2019-02-03] MEDS: levoFLOXacin 750 MG/150 ML BAG 100 MG IVPB (13:51)
[2019-02-03 14:19] LABS: Anion Gap 14.8 mmol/L (3-11); BUN 26 mg/dL (7-18); CO2 18.2 mmol/L (21.0-32.0); Calcium 7.3 mg/dL (8.5-10.1); Chloride 79 mmol/L (98-107); Glucose 101 mg/dL (70-100)
[2019-02-03 14:22] LABS: Potassium 2.7 mmol/L (3.5-5.1); Sodium 112 mmol/L (136-145)
--- NOTE | 2019-02-03 14:32 | NUR.NOTE ---
Nursing Note: Pt is alert to name, year and president. Pt remembers waking up Abelino and playing with her cat.
[2019-02-03] MEDS: Etomidate 20 MG/10 ML VIAL 10 MG IVP (15:08)
[2019-02-03] MEDS: Rocuronium 50 MG/5 ML SYR IVP (15:09)
--- NOTE | 2019-02-03 15:11 | DI.RAD_ITS ---
EXAM: XR PORTABLE CHEST AP POST LINE INDICATION: Post-Intubation/ETT placement. COMPARISON: XR CHEST 1V IN DI DEPT from 02/03/2019 TECHNIQUE: 2D digital imaging was performed. FINDINGS: Pulmonary hyperexpansion is demonstrated. There is no evidence of an infiltrate or pleural effusion. Heart is not enlarged. Endotracheal tube ends comfortably above the kaylene. IMPRESSION: Endotracheal tube in good position.
[2019-02-03] MEDS: PROPOFOL 1,000 MG/100 ML BTL 4.8 MG (15:13)
--- NOTE | 2019-02-03 16:10 | NUR.NOTE ---
Nursing Note: Moved to [facility] stretcher at [id number]
== END 2019-02-03 15:56 | disposition short-term general hospital (02) ==
PROVIDERS: Emergency Provider Student in an Organized Health Care Education/Training Program; PCP Family Medicine
DX: T68.XXXA Hypothermia, initial encounter (principal); E87.6 Hypokalemia; E87.1 Hypo-osmolality and hyponatremia; N39.0 Urinary tract infection, site not specified; R41.82 Altered mental status, unspecified; J96.00 Acute respiratory failure, unspecified whether with hypoxia or hypercapnia; K85.90 Acute pancreatitis without necrosis or infection, unspecified; I10 Essential (primary) hypertension; J44.9 Chronic obstructive pulmonary disease, unspecified; F17.210 Nicotine dependence, cigarettes, uncomplicated
CPT/HCPCS: 31500; 36415; 36556; 51702; 71045; 80048; 80053; 80307; 82805; 83690; 87040; 93005; 96361; 96365; 96368; 99291; 70450; 72125; 80320; 81003; 81015; 82140; 83605; 83735; 83880; 84443; 84484; 85025; 85610; 85730; 87086; 93010; J1956; J3475; J3480

== ENCOUNTER 2019-02-21 12:14 | Outpatient (REF) | payer MEDICAID, SELFPAY ==
[2019-02-21 12:40] LABS: Abs Immature Grans 0.02 k/cumm (0.0-0.09); Absolute Basophil Count 0.03 k/cumm (0.0-0.2); Absolute Eosinophil Count 0.07 k/cumm (0.0-0.7); Absolute Lymphocyte Count 1.22 k/cumm (1.2-3.4); Absolute Monocyte Count 0.56 k/cumm (0.11-0.7); Basophils % 0.8; Eosinophils % 1.8; HGB 10.6 g/dL (12.0-15.5); Immature Grans % 0.5; Lymphocytes % 30.5; Mean Corp. HGB Concentration 33.1 g/dL (32.0-36.0); Mean Corpuscular Hemoglobin 33.9 pg (27.0-33.0); Mean Corpuscular Volume 102.2 fL (80-95); Mean Platelet Volume 9.2 fL (8.0-11.0); Neutrophils % 52.4; RBC 3.13 m/cumm (4.00-5.20); RBC Distribution Width 17.4 % (11.7-14.6)
[2019-02-21 12:58] LABS: Platelet Count 667 x1000/uL (130-400)
== END 2019-02-21 12:34 ==
LOC: LBN 12:14
PROVIDERS: PCP Family Medicine; Visit Provider Student in an Organized Health Care Education/Training Program
DX: I10 Essential (primary) hypertension (principal); D64.9 Anemia, unspecified; E46 Unspecified protein-calorie malnutrition
CPT/HCPCS: 85025

== ENCOUNTER 2019-02-28 12:43 | Outpatient (REF) | payer MEDICAID, SELFPAY ==
[2019-02-28 14:15] LABS: Anion Gap 16.4 mmol/L (3-11); BUN 8 mg/dL (7-18); CO2 20.6 mmol/L (21.0-32.0); Calcium 9.2 mg/dL (8.5-10.1); Chloride 98 mmol/L (98-107); Glucose 130 mg/dL (70-100); Potassium 4.8 mmol/L (3.5-5.1); Sodium 135 mmol/L (136-145)
[2019-02-28 14:49] LABS: TSH (W/Ref FT4) 140.54 uIU/mL (0.36-3.74)
[2019-02-28 14:55] LABS: FREE T4 0.48 ng/dL (0.76-1.46)
== END 2019-02-28 13:03 ==
LOC: LBN 12:43
PROVIDERS: PCP Family Medicine; Visit Provider Family Medicine
DX: E03.9 Hypothyroidism, unspecified (principal); E87.1 Hypo-osmolality and hyponatremia; E46 Unspecified protein-calorie malnutrition
CPT/HCPCS: 80048; 84439; 84443

== ENCOUNTER 2019-05-05 13:22 | Emergency (ER) | payer MEDICAID, SELFPAY ==
[2019-05-05] VITALS (54 sets, daily range): BP systolic 80–126; BP diastolic 48–105; PULSE 55–123; RESP 9–23; TEMP 29.2–35.4; O2SAT 97–100
--- NOTE | 2019-05-05 13:46 | ED.GENADUL_ITS ---
Discharge Plan Disposition Patient Disposition: [facility] Condition: Critical Discharge Details Chief Complaint: GenMedical Clinical Impression: Hyponatremia, Hypothyroidism, Failure to thrive, Acute hypotension Primary Care Provider: Chidi Mccormack ED Provider: Jose Raul Tobar Home Meds and New Rx's Prescriptions: No Action Eliquis 5 mg tablet 5 mg PO BID Qty: 60 RF: 0 triamcinolone acetonide 0.025 % cream 1 applic TP BID PRN (Reason: itching) Qty: 80 RF: 0 folic acid 1 mg tablet 1 mg PO DAILY RF: 0 diphenhydramine HCl [Benadryl] 25 MG capsule 25 mg PO DAILY PRNRF: 0 levothyroxine 100 mcg tablet 100 mcg PO 0600 Qty: 90 RF: 3 aspirin [Adult Aspirin Regimen] 81 mg tablet,delayed release (DR/EC) 81 mg PO DAILY RF: 0 Bengay Greaseless 15-10 % cream 1 applic TP BID PRNRF: 0 acetaminophen 500 mg tablet 1,000 mg PO Q6H PRNRF: 0 cilostazol 100 mg tablet 100 mg PO BID RF: 0 gabapentin 300 mg capsule 300 mg PO TID RF: 0 calcium carbonate [Antacid (calcium carbonate)] 200 mg calcium (500 mg) tablet,chewable 200 mg PO TID RF: 0 omeprazole 20 mg capsule,delayed release(DR/EC) 20 mg PO DAILY RF: 0 thiamine HCl (vitamin B1) 50 mg tablet 50 mg PO DAILY RF: 0 ondansetron HCl [Zofran] 4 mg tablet 4 mg PO Q6H PRNRF: 0 magnesium oxide 400 mg (241.3 mg magnesium) Tablet 800 mg PO BID Qty: 0 RF: 0 folic acid 1 mg Tablet 1 mg PO DAILY Qty: 0 RF: 0 clotrimazole 1 % Cream 60 g topical TID Qty: 0 RF: 0 vits A and D-white pet-lanolin Ointment 60 g topical TID Qty: 0 RF: 0 cyanocobalamin (vitamin B-12) 500 mcg lozenge 500 mcg PO DAILY Qty: 30 RF: 0 multivitamin tablet 1 tab PO DAILY Qty: 30 RF: 0 lidocaine [Lidoderm] 1 PATCH patch 1 patch Topical Q24H Qty: 4 RF: 0 Discharge Data Discharge Date/Time-TO BE ENTERED AT DEPARTURE: 05/05/19 18:17 Medical Decision Making <Saba Edmond MD - Last Filed: 05/16/19 08:51> Kayla Leon is a 58 y/o woman with history of hypertension, hyperlipidemia, hypothyroidism, COPD, significant electrolyte abnormalities in the past, alcohol use disorder who presented to the emergency department after being found down on the floor of her home by her home health care worker. On exam patient is alert, cooperative, in no distress, non-focal neurologic exam. Found to be hypothermic. Concern for altered mental status of unknown etiology, given history likely metabolic/electrolyte derangement versus trauma versus infection versus other. Doubt meningitis, ACS. Exam/history is not consistent with pulmonary embolism. Plan for EKG, CT head, screening labs, IV fluid hydration with warm fluids, rafi hugger, telemetry. Will monitor and reassess. CT had negative per radiology. Labs reviewed. Sodium 112, TSH significantly elevated. Given history of severe alcoholism, plan for hypertonic saline 30 cc/h, subcutaneous desmopressin. Will admit. I discussed patient with Dr. Quesada, hospitalist, who would like patient placed in tertiary care facility. [facility] transfer center contacted 15:15, awaiting callback. Patient continues to have no complaints. Temperature now within normal. Patient accepted by [facility] critical care at 15:50, accepting physician Dr. Khoi Ni: critical care at [facility] requests repeat sodium level check, p.o. levothyroxine. Would prefer to have patient transferred by [facility]ground if possible. Transfer center states that there will be a significant delay in [facility] as they are currently flying to another case. I did contact [facility], who would prefer the patient be sent by [facility] if possible. [facility] is available immediately, however per transfer center at 16:05 I was informed that patient will be awaiting bed availability in the ICU, and [facility] cannot be sent from [facility] until bed is actively available. 1615, confirmed bed available, [facility] living now, 1 hour and 15 minutes away 16:45 patient with hypotension, systolic in 80s, patient with no complaints, states that she feels never better. Call placed to [facility] critical care for recommendations for fluid resuscitation. 17: 07 discussed patient with critical care team at [facility], related change in blood pressure, now 82/52, no change in patient mentation, she remains alert without complaint. Recommendations from [facility] critical care: Change hypertonic saline from 30 cc/h to 15 cc/h, give 1 L normal saline bolus, repeat BMP in 1 hour, Levophed as needed. Awaiting [facility] for transfer. Patient signed out to Dr. Tobar at time of shift change with repeat BMP, reassessment, transfer pending. Medical Records Medical records reviewed: Yes I reviewed the patient's medical records. Imaging Data Radiologic Study: Attestation: I personally reviewed and interpreted this imaging study as follows: Radiologist's impression: EXAM: CT HEAD WO CLINICAL HISTORY: AMS TECHNIQUE: NONCONTRAST COMPARISON: CT HEAD CERVICAL SPINE WO from 02/03/2019 FINDINGS: The ventricles and sulci are consistent with the patient's age. There are areas of decreased attenuation in the white matter consistent with small vessel ischemic disease. There is an old lacunar infarct seen in the right thalamus, which is unchanged. No acute intracranial hemorrhage is present. There is no acute midline shift or mass effect. Visualized paranasal sinuses are clear as are the mastoid air cells. The calvarium is intact. IMPRESSION: No acute intracranial process. Lab Data Lab results reviewed: Yes I reviewed the patient's lab results. ECG Data Attestation: I personally reviewed and interpreted this ECG (s) as follows: Interpretation: EKG shows sinus rhythm at 60, normal axis, significant artifact present, diffuse T wave flattening present on prior 01/30, nondiagnostic EKG <Jose Raul Tobar, DO - Last Filed: 05/05/19 18:07> Patient was signed out to me by my colleague Dr. India Edmond. We are pending transport/transfer to [facility]. Prior to transfer of care the patient was noted to be hypotensive in the 80s, [facility] recommended a bolus of saline, 1 L bolus was given, patient's blood pressure notably improved to 109 systolic. Heart rate is stable. Mental status is stable. Airway is clear, no evidence of obtundation or airway compromise at this time. Repeat basic metabolic panel has not yet returned. [facility] is here currently, and has accepted the patient will be transporting them right now by ground. At time of transfer the patient was reassessed and continued to demonstrate stability in which to transport in the current means. No signs of acute respiratory distress requiring intubation, hemodynamic instability requiring pressor support at this time, or rapidly declining mental status. The patient is stable for currently selected ground transport means. HPI <Saba Edmond MD - Last Filed: 05/16/19 08:51> General Mode of arrival: EMS . Date/Time Provider Initiated Documentation: 05/05/19 13:24 . Limitations to Documentation: no limitations . Information obtained by: patient, RN notes reviewed and old records reviewed . HPI Narrative: Kayla Leon is a 58-year-old woman with history of hypertension, hyperlipidemia, hypothyroidism, COPD, significant electrolyte abnormalities in the past, alcohol use disorder presenting to the emergency department after being found on the ground. Patient reports that she was seen at [facility] for an appointment with Dr. العلي at 1115 this morning. Patient reports that she went home and was in her usual state of health. Patient reports that she got up to change her ostomy bag, and did not feel quite right while walking, and slid to the ground. Patient reports that her home health worker came and found her on the ground and called EMS. Patient states that she did not hit her head. Patient reports that she drank a beer this morning which is typical for her. She denies any pain or any other complaints, and states that she feels in her usual state of health. Patient states that she feels well and would like to go home. Upon patient's arrival in the emergency department, we did call Dr. العلي's office, and patient was not seen there today but was seen on 04/28. Related Data Home Medications Medication Instructions Recorded Confirmed diphenhydramine HCl [Benadryl] 25 mg PO DAILY PRN 08/14/16 05/15/19 clotrimazole 60 g TOPICAL TID #0 g 09/14/18 05/15/19 cyanocobalamin (vitamin B-12) 500 mcg PO DAILY #30 each 09/14/18 05/15/19 folic acid 1 mg PO DAILY #0 tab 09/14/18 05/15/19 magnesium oxide 800 mg PO BID #0 tab 09/14/18 05/15/19 multivitamin 1 tab PO DAILY #30 tab 09/14/18 05/15/19 vits A and D-white pet-lanolin 60 g TOPICAL TID #0 g 09/14/18 05/15/19 levothyroxine 100 mcg tablet 100 mcg PO 0600 #90 tab 11/01/18 05/15/19 aspirin 81 mg tablet,delayed 81 mg PO DAILY 01/14/19 05/15/19 release acetaminophen 500 mg tablet 1,000 mg PO Q6H PRN tab 02/17/19 05/15/19 cilostazol 100 mg tablet 100 mg PO BID 02/17/19 05/15/19 methyl salicylate 15 %-menthol 10 1 applic TP BID PRN 02/17/19 05/15/19 % topical cream apixaban 5 mg tablet 5 mg PO BID #60 tab 02/25/19 05/15/19 triamcinolone acetonide 0.025 % 1 applic TP BID PRN #80 gm 02/25/19 05/15/19 topical cream folic acid 1 mg tablet 1 mg PO DAILY 04/01/19 05/15/19 calcium carbonate 200 mg calcium 200 mg PO TID 05/15/19 (500 mg) chewable tablet gabapentin 300 mg capsule 300 mg PO TID 05/15/19 lidocaine [Lidoderm] 1 patch TOPICAL Q24H #4 patch 05/15/19 omeprazole 20 mg capsule,delayed 20 mg PO DAILY 05/15/19 release ondansetron HCl 4 mg tablet 4 mg PO Q6H PRN 05/15/19 thiamine HCl (vitamin B1) 50 mg 50 mg PO DAILY 05/15/19 tablet Previous Rx's Medication Instructions Recorded clotrimazole 60 g TOPICAL TID #0 g 09/14/18 cyanocobalamin (vitamin B-12) 500 mcg PO DAILY #30 each 09/14/18 folic acid 1 mg PO DAILY #0 tab 09/14/18 magnesium oxide 800 mg PO BID #0 tab 09/14/18 multivitamin 1 tab PO DAILY #30 tab 09/14/18 vits A and D-white pet-lanolin 60 g TOPICAL TID #0 g 09/14/18 levothyroxine 100 mcg tablet 100 mcg PO 0600 #90 tab 11/01/18 apixaban 5 mg tablet 5 mg PO BID #60 tab 02/25/19 triamcinolone acetonide 0.025 % 1 applic TP BID PRN #80 gm 02/25/19 topical cream lidocaine [Lidoderm] 1 patch TOPICAL Q24H #4 patch 05/15/19 Allergies Allergy/AdvReac Type Severity Reaction Status Date / Time hydrochlorothiazide Allergy Severe RASH Verified 05/15/19 00:05 morphine Allergy Severe stops Verified 05/15/19 00:05 breathing simvastatin Allergy Intermediate rash Verified 05/15/19 00:05 Penicillins Allergy Unknown unknown Verified 05/15/19 00:05 adhesive tape AdvReac itching, Verified 05/15/19 00:05 redness under iv dressing. CANNABINOID Allergy Unknown Swelling/Ed Uncoded 05/15/19 00:05 hans General JOLENE: 2 Review of Systems <Saba Edmond MD - Last Filed: 05/16/19 08:51> Narrative: Constitutional: denies fevers Eyes: denies eye pain ENT: denies ear pain, dental pain, sore throat Cardiovascular: denies chest pain Respiratory: denies SOB, cough GI: denies abdominal pain, vomiting, diarrhea : denies flank pain MSK: denies back pain, neck pain, arthralgias, myalgias Skin: denies rash Neuro: denies headaches, numbness, weakness PFSH <Saba Edmond MD - Last Filed: 05/16/19 08:51> Medical History Alcohol dependence (Chronic) drinking beer during visit; many empties around Arterial occlusive disease (Chronic Unknown) [place] [facility] [place]16--bilateral & moderate Colostomy in place (Chronic) wants this reversed as soon as [facility] surgery team agrees Continuous chewing tobacco dependence (Inactive 01/22/12) COPD (chronic obstructive pulmonary disease) (Suspected) not proven, requires outpatient PFTs CRPS 1, lower extremity (Acute) possible diagnosis Essential hypertension (Chronic 01/22/12) Foot pain, left (Chronic 12/04/16) Neuropathic vs. claudication Hyperlipidemia (Chronic 08/21/12) Hyperlipidemia (Chronic 08/21/12) Hypothyroidism (Chronic) Neuropathy (Chronic 12/07/16) left foot Palliative care patient (Acute) Unstable gait (Acute) walks with a walker antalgic gait Wernicke-Korsakoff syndrome (Acute) Social History Smoking/Tobacco Use Status: Current every day Tobacco Type: cigarettes Quit status: not considering quitting Counseling given: counseling >3 minutes Alcohol Intake: current Alcohol Intake frequency: 3 or more drinks per day Alcohol type: beer and hard liquor Counseling given: Yes Counseling provided: reduce to 2 or less/day Drug use: Never Substance use type: does not use Caregiver/Support person: No Household members: none Housing: apartment Number of Children: 1 Communication Needs: Corrective Lenses Education Level: high school Do you need help understanding health information?: Always current occupation: not working at this time Pets and animals: Yes (Mr Joel Sharp) Pets and animals: cat(s) What is your relationship status?: never How often do you talk on the phone with friends or family?: twice per week How often do you get together with friends or relatives?: twice per week Panel score (0-1 are the most socially isolated patients): 1 What type of physical activity do you participate in: walking and irregular exercise Duration: < 15 minutes/day Frequency: daily Special carlie needs: No Agree to transfusion: Yes Seatbelt use: always Drive intox or ride 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 Has not been back to work since then. Twice has been found down, with elevated etoh level, covered in feces. Wants to return to work. 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 Thinks she could do her old job, but slowly. Exam <Saba Edmond MD - Last Filed: 05/16/19 08:51> Narrative Exam Narrative: Constitutional: Chronically ill but acutely [id number]-[id number], pleasant, conversing normally HENT: head atraumatic/normocephalic/normal inspection, mucous membranes dry Eyes: conjunctiva normal, sclera normal, pupils 3mm b/l Neck: no stridor, normal ROM, trachea midline Chest: normal inspection Resp: normal work of breathing, LCTAB Cardio: normal rate, normal rhythm, no murmur appreciated GI: abdomen soft, non-tender, non-distended Skin: warm, dry, normal color, no rash Neuro: alert, not altered, grossly non-focal, normal tone Ext: no edema Psych: normal mood, normal behavior Critical Care Time <Saba Edmond MD - Last Filed: 05/16/19 08:51> Critical Care Time Total Critical Care Time: 35 Attestation: I have spent greater than 35 minutes of critical care time caring for this critically ill patient, including frequent reassessments, discussions with consultants. Sign Out <Saba Edmond MD - Last Filed: 05/16/19 08:51> Sign Out Data: Sign Out Comment: Patient signed out to Dr. Tobar at time of shift change with repeat BMP, reassessment, transfer pending Last updated by Saba Edmond MD at 05/05/19 17:18
[2019-05-05 14:19] LABS: HCT 31.2 % (36.0-46.0); Mean Corpuscular Volume 94.5 fL (80-95); Mean Platelet Volume 9.2 fL (8.0-11.0); Platelet Count 324 x1000/uL (130-400); RBC Distribution Width 11.8 % (11.7-14.6); White Blood Cell Count 7.04 k/cumm (4.4-10.8)
[2019-05-05 14:32] LABS: ALT 63 U/L (14-59); AST 204 U/L (15-37); Albumin 3.4 g/dL (3.4-5.0); Alkaline Phosphatase 87 U/L (46-116); Anion Gap 21.3 mmol/L (3-11); BUN 22 mg/dL (7-18); Bilirubin, Total 0.6 mg/dL (0.2-1.0); CO2 15.7 mmol/L (21.0-32.0); CREATININE 0.33 mg/dL (0.55-1.02); Calcium 8.7 mg/dL (8.5-10.1); Chloride 75 mmol/L (98-107); ETHANOL BLOOD < 3.0 mg/dL (<3); Glucose 142 mg/dL (74-106); Potassium 3.2 mmol/L (3.5-5.1); Total Protein 6.2 g/dL (6.4-8.2)
[2019-05-05 14:33] LABS: TSH (W/Ref FT4) 59.85 uIU/mL (0.36-3.74)
[2019-05-05 14:37] LABS: Bilirubin Small (Negative); Blood Moderate (Negative); Clarity Sl Cloudy (Clear); Glucose Negative (Negative); Ketones >=160 mg/dL (Negative); Leukocyte Esterase Negative (Negative); Nitrite Negative (Negative); Specific Gravity 1.025 (1.005-1.025); Urobilinogen 0.2 EU/dL (Up TO 0.2); pH 5.5 (5-8)
[2019-05-05 14:47] LABS: Magnesium 1.5 mg/dL (1.8-2.4)
[2019-05-05 14:48] LABS: WBC 20-50 HPF (0-5)
[2019-05-05 14:49] LABS: Epithelial Cells Many HPF (Negative)
[2019-05-05 14:50] LABS: Mucus Heavy (Negative)
--- NOTE | 2019-05-05 14:51 | DI.CT_ITS ---
EXAM: CT HEAD WO CLINICAL HISTORY: AMS TECHNIQUE: NONCONTRAST COMPARISON: CT HEAD CERVICAL SPINE WO from 02/03/2019 FINDINGS: The ventricles and sulci are consistent with the patient's age. There are areas of decreased attenua tion in the white matter consistent with small vessel ischemic disease. There is an old lacunar infa rct seen in the right thalamus, which is unchanged. No acute intracranial hemorrhage is present. Th ere is no acute midline shift or mass effect. Visualized paranasal sinuses are clear as are the mast oid air cells. The calvarium is intact. IMPRESSION: No acute intracranial process. The findings were discussed with Dr. Edmond on the date of the examination.
[2019-05-05 14:52] LABS: Sodium 112 mmol/L (136-145)
[2019-05-05 14:52] LABS: C & S Indicated? No/Sq. Contamination
[2019-05-05 14:53] LABS: Creatine Kinase 3623 U/L (26-192)
[2019-05-05 14:55] LABS: HGB 11.6 g/dL (12.0-15.5); Mean Corp. HGB Concentration 37.2 g/dL (32.0-36.0); Mean Corpuscular Hemoglobin 35.2 pg (27.0-33.0)
[2019-05-05 15:02] LABS: Absolute Neutrophil Count 5.84 k/cumm (1.2-6.7)
[2019-05-05 15:03] LABS: Absolute Lymphocyte Count 0.56 k/cumm (1.2-3.4); Absolute Monocyte Count 0.63 k/cumm (0.11-0.7); Diff Comment Manual Differential; RBC Morphology Normal
[2019-05-05] MEDS: Normal Saline Flush 10 ML SYR IVP (15:10)
[2019-05-05] MEDS: MAGNESIUM SULFATE 2 GM/50 ML BAG IVPB (15:15)
[2019-05-05 15:16] LABS: FREE T4 0.53 ng/dL (0.76-1.46)
[2019-05-05 16:02] LABS: Bilirubin Small (Negative); Blood Small (Negative); Clarity Clear (Clear); Glucose Negative (Negative); Ketones >=160 mg/dL (Negative); Leukocyte Esterase Negative (Negative); Nitrite Negative (Negative); Specific Gravity 1.025 (1.005-1.025); Urobilinogen 0.2 EU/dL (Up TO 0.2); pH 5.5 (5-8)
--- NOTE | 2019-05-05 16:02 | NUR.NOTE ---
unsure of when she took her meds last because of ETOH.Nursing Note:
[2019-05-05] MEDS: SODIUM CHLORIDE 3% 500 ML 30 ML IV (16:06)
[2019-05-05 16:16] LABS: Bacteria Negative HPF (Negative); C & S Indicated? No; Crystals Negative HPF (Negative); Epithelial Cells Few HPF (Negative); Mucus Moderate (Negative); RBC Negative HPF (0-2); WBC 0-2 HPF (0-5)
[2019-05-05] MEDS: Levothyroxine 100 MCG TAB PO (16:27)
[2019-05-05 16:49] LABS: Anion Gap 21.4 mmol/L (3-11); BUN 22 mg/dL (7-18); CO2 17.6 mmol/L (21.0-32.0); CREATININE 0.36 mg/dL (0.55-1.02); Calcium 8.9 mg/dL (8.5-10.1); Chloride 77 mmol/L (98-107); Glucose 122 mg/dL (74-106)
[2019-05-05 17:01] LABS: Potassium 2.7 mmol/L (3.5-5.1); Sodium 116 mmol/L (136-145)
[2019-05-05] MEDS: Normal Saline 1,000 ML 1000 ML IV (17:10)
[2019-05-05 18:11] LABS: Anion Gap 19.4 mmol/L (3-11); BUN 20 mg/dL (7-18); CO2 16.6 mmol/L (21.0-32.0); CREATININE 0.29 mg/dL (0.55-1.02); Calcium 7.6 mg/dL (8.5-10.1); Chloride 84 mmol/L (98-107); Glucose 105 mg/dL (74-106)
[2019-05-05 18:15] LABS: Potassium 2.4 mmol/L (3.5-5.1); Sodium 120 mmol/L (136-145)
[2019-05-05 22:33] LABS: Osmolality Serum 242 mOsm/kg (275-295)
== END 2019-05-05 18:17 | disposition short-term general hospital (02) ==
PROVIDERS: Student in an Organized Health Care Education/Training Program; Emergency Provider Student in an Organized Health Care Education/Training Program; PCP Family Medicine
DX: E87.1 Hypo-osmolality and hyponatremia (principal); E03.9 Hypothyroidism, unspecified; R62.7 Adult failure to thrive; I95.9 Hypotension, unspecified; T68.XXXA Hypothermia, initial encounter; F10.20 Alcohol dependence, uncomplicated; I10 Essential (primary) hypertension; J44.9 Chronic obstructive pulmonary disease, unspecified
CPT/HCPCS: 36415; 51702; 80048; 80053; 82550; 93005; 96361; 96365; 96366; 96372; 99285; 70450; 80320; 81003; 81015; 83735; 83930; 84439; 84443; 85025; 93010; J2597

== ENCOUNTER 2019-05-14 23:59 | Emergency (ER) | payer MEDICAID, SELFPAY ==
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
[2019-05-14 23:58] VITALS: BP 182/93; PULSE 80; RESP 18; TEMP 36.4; O2SAT 97
--- NOTE | 2019-05-15 00:25 | DI.RAD_ITS ---
EXAM: XR FOOT LT COMPLETE CLINICAL HISTORY: left foot burning pain TECHNIQUE: COMPARISON: No exams were available for comparison FINDINGS: Three views were obtained. No bony or soft tissue abnormality seen. IMPRESSION:
[2019-05-15] MEDS: Lidocaine 5% Patch 1 PATCH TP (00:26)
--- NOTE | 2019-05-15 00:46 | DI.VRAD_ITS ---
PROCEDURE INFORMATION: Exam: XR Left Foot Complete Exam date and time: 05/15/2019 12:20 AM Age: 58 years old Clinical indication: Pain; Foot; Left TECHNIQUE: Imaging protocol: XR Left foot. Views: 3 or more views. COMPARISON: CR LEFT FOOT COMPLETE 11/02/2016 12:07 PM FINDINGS: Bones/joints: Osteopenia. No acute fracture. Soft tissues: Normal. IMPRESSION: No acute finding. Dictated and Authenticated by: Mickey Thomas MD. Ordering:COBY Blunt MD
== END 2019-05-15 02:30 | disposition home or self-care (01) ==
LOC: ER 05-15 01:40
PROVIDERS: Emergency Provider Student in an Organized Health Care Education/Training Program; PCP Family Medicine
DX: G90.522 Complex regional pain syndrome I of left lower limb (principal); M79.672 Pain in left foot; I10 Essential (primary) hypertension; J44.9 Chronic obstructive pulmonary disease, unspecified; F17.210 Nicotine dependence, cigarettes, uncomplicated
CPT/HCPCS: 99283; 73630

== ENCOUNTER 2019-05-25 10:58 | Inpatient (IN) | payer MEDICAID, SELFPAY ==
[2019-05-25] VITALS (9 sets, daily range): BP systolic 134–191; BP diastolic 67–107; PULSE 104–120; RESP 18–20; TEMP 36.4–38.1; O2SAT 95–98
--- NOTE | 2019-05-25 10:51 | W.ED.GENAD ---
Discharge Plan Disposition Patient Disposition: [facility] INPATIENT Condition: Fair Discharge Details Chief Complaint: GenMedical Clinical Impression: Failure to thrive Admit Date/Time: 05/25/19 12:49 Admit Provider: Tiarra Cavanaugh Attending Provider: Tiarra Cavanaugh Primary Care Provider: Chidi Mccormack ED Provider: Neeru De Los Santos Discharge Data Discharge Date/Time-TO BE ENTERED AT DEPARTURE: 05/25/19 14:03 Medical Decision Making Patient is 58-year-old female with past medical history of ileostomy, hyponatremia, alcohol dependence, unstable gait, DVT, chronic malnutrition, CRPS, Warnicke Korsakoff syndrome, vaginal fistula, COPD, hypomagnesemia, hypocalcemia, failure to thrive, hypothyroidism, tobacco dependence. She is presenting today, brought in via EMS after being found on the ground. She denies any fall but states that she slid to the ground from her chair and had difficulty getting up. She was found in this position by home health nursing. EMS corroborates that she was sitting in front of her chair at the time they arrived. They report that the house the patient is living in is unfit and the patient is currently living squalor. She feels that the home is safe at this time with no recent change. Patient would like to have somebody to come and clean her home regularly. She reports that she is having some buttock pain but associates this with sitting for prolonged period of time. She denies any recent fevers. No shortness of breath no. No chest pain. She denies any abdominal pain. No nausea or vomiting. Denies any recent alcohol use. Unclear when patient last took her medications. Patient reports that she has not been able to shower, unclear as to when she last bathed. On exam, patient appears cachectic, malnourished, disheveled. She smells of urine and feces. As both of these on her skin. She is in a wet depends. Depends have stool burden around the upper aspects consistent with her colostomy leaking. Compared to previous visits with the patient, she does seem to have more mental clarity. She is alert and oriented x3. Does not appear to be in any acute distress. Does not appear acute acutely toxic. She does have multiple areas of skin breakdown including the bilateral greater trochanters, right greater than left. Also have erythema consistent with skin breakdown on the buttock. No jose eduardo openings in the skin. She had dressings on both heels dated 05/13/2019. No open wounds, erythema or drainage under these areas. Patient I discussed her current wishes. I am concerned with her safety going home. Given the multitude of chronic comorbidities and previously life-threatening electrolyte abnormalities, will perform screening labs, hydrate the patient. She is drinking and eating. She was cleansed by nursing staff. Her colostomy bag was changed and patient was placed in fresh garments. Labs reviewed. No leukocytosis. Patient's not anemic. Her sodium is 132. Chloride of 90. Potassium is 3.9. Anion gap of 20. Creatinine of 0.43 with a GFR over 60. Glucose 57. Again, patient is eating and drinking. Lactate is minimally elevated at 1.8. Magnesium 1.4. Troponin is less than 0.05. Ammonia less than 10. TSH 33 with a free T4 0.87. Lipase is normal. Alcohol is negative. Care management involved, they are well aware of the patient. Also consulted with hospitalist who agrees to admission. Patient will be admitted observation. Care management is trying to ensure that home care services are set up for the patient. Discussed admission with the patient. She voiced understanding and would like to proceed. Does not sound interested in residential care at this time. HPI General Mode of arrival: EMS. Date/Time Provider Initiated Documentation: 05/25/19 12:28. Limitations to Documentation: no limitations. Information obtained by: patient, RN/MD (contacted by home health nursing staff), EMS and RN notes reviewed. HPI Narrative: Patient is a 58 year old female, well known to the department, after being found at home on the ground by home health nursing. Patient reports that she had been sitting in her chair and when she attempted to get up accidentally slid to the floor. She denies any fall. Denies any headache. No trauma. Patient is an alcoholic but states she has not been drinking the past 2 days secondary to not having any alcohol in the house. Both home health nursing and EMS expressed concern regarding the patient's home living situation. They do not feel that the patient is safe given the squalor the patient is living in. EMS describes the patient to being in a nest in a chair that she does not appear to be leaving. They report that surrounding this chair is piles of dirty diapers, use toilet paper, empty beer cans. The patient feels that she is safe at home. EMS also expressed concern given the amount of clutter and trash on the floor that patient would be unable to ambulate with her walker as she typically does. Patient denies any recent alcohol intake. Is unclear if she is been taking any of her medications. Patient reports that she has a multitude of services that are beginning this week including occupational therapy, physical therapy and in-home care. At this time, patient's only complaint is regarding sore buttock which she associates with having been sitting on her bottom for a few hours prior to arrival. Related Data Home Medications Medication Instructions Recorded Confirmed diphenhydramine HCl [Benadryl] 25 mg PO DAILY PRN 08/14/16 05/25/19 clotrimazole 60 g TOPICAL TID #0 g 09/14/18 05/25/19 cyanocobalamin (vitamin B-12) 500 mcg PO DAILY #30 each 09/14/18 05/25/19 magnesium oxide 800 mg PO BID #0 tab 09/14/18 05/25/19 multivitamin 1 tab PO DAILY #30 tab 09/14/18 05/25/19 vits A and D-white pet-lanolin 60 g TOPICAL TID #0 g 09/14/18 05/25/19 aspirin 81 mg tablet,delayed 81 mg PO DAILY 01/14/19 05/25/19 release acetaminophen 500 mg tablet 1,000 mg PO Q6H PRN tab 02/17/19 05/25/19 cilostazol 100 mg tablet 100 mg PO BID 02/17/19 05/25/19 methyl salicylate 15 %-menthol 10 1 applic TP BID PRN 02/17/19 05/25/19 % topical cream apixaban 5 mg tablet 5 mg PO BID #60 tab 02/25/19 05/25/19 triamcinolone acetonide 0.025 % 1 applic TP BID PRN #80 gm 02/25/19 05/25/19 topical cream folic acid 1 mg tablet 1 mg PO DAILY 04/01/19 05/25/19 calcium carbonate 200 mg calcium 200 mg PO TID 05/15/19 05/25/19 (500 mg) chewable tablet omeprazole 20 mg capsule,delayed 20 mg PO DAILY 05/15/19 05/25/19 release ondansetron HCl 4 mg tablet 4 mg PO Q6H PRN 05/15/19 05/25/19 thiamine HCl (vitamin B1) 50 mg 50 mg PO DAILY 05/15/19 05/25/19 tablet levothyroxine 100 mcg tablet 100 mcg PO 0600 #90 tab 05/19/19 05/25/19 pregabalin 75 mg capsule 75 mg PO BID #30 cap 05/19/19 05/25/19 lidocaine 4 % topical patch 1 patch TP Q24H PRN #6 each 05/22/19 05/25/19 Previous Rx's Medication Instructions Recorded clotrimazole 60 g TOPICAL TID #0 g 09/14/18 cyanocobalamin (vitamin B-12) 500 mcg PO DAILY #30 each 09/14/18 magnesium oxide 800 mg PO BID #0 tab 09/14/18 multivitamin 1 tab PO DAILY #30 tab 09/14/18 vits A and D-white pet-lanolin 60 g TOPICAL TID #0 g 09/14/18 apixaban 5 mg tablet 5 mg PO BID #60 tab 02/25/19 triamcinolone acetonide 0.025 % 1 applic TP BID PRN #80 gm 02/25/19 topical cream levothyroxine 100 mcg tablet 100 mcg PO 0600 #90 tab 05/19/19 pregabalin 75 mg capsule 75 mg PO BID #30 cap 05/19/19 lidocaine 4 % topical patch 1 patch TP Q24H PRN #6 each 05/22/19 Allergies Allergy/AdvReac Type Severity Reaction Status Date / Time hydrochlorothiazide Allergy Severe RASH Verified 05/25/19 11:08 morphine Allergy Severe stops Verified 05/25/19 11:08 breathing simvastatin Allergy Intermediate rash Verified 05/25/19 11:08 Penicillins Allergy Unknown unknown Verified 05/25/19 11:08 adhesive tape AdvReac itching, Verified 05/25/19 11:08 redness under iv dressing. CANNABINOID Allergy Unknown Swelling/Ed Uncoded 05/25/19 11:08 hans General JOLENE: 4 Review of Systems Constitutional Constitutional: Reports as per HPI, Denies chills, Denies fatigue, Denies fever(s) and Denies headache(s) ENT Ears, Nose, Mouth, and Throat: Denies headache(s) Cardiovascular Cardiovascular: Reports as per HPI, Denies chest pain and Denies dyspnea Respiratory Respiratory: Reports as per HPI, Denies cough and Denies dyspnea Gastrointestinal Gastrointestinal: Reports as per HPI Musculoskeletal Musculoskeletal: Reports as per HPI and Denies back pain Integumentary/Breasts Skin/Breast: Reports as per HPI, Reports skin pain and Reports sores Neurologic Neurologic: Reports as per HPI and Denies headache(s) Endocrine Endocrine: Denies fatigue [facility] Medical History Alcohol dependence (Chronic) drinking beer during visit; many empties around Arterial occlusive disease (Chronic Unknown) ABIs [facility] 11/30/16--bilateral & moderate Continuous chewing tobacco dependence (Inactive 01/22/12) COPD (chronic obstructive pulmonary disease) (Suspected) not proven, requires outpatient PFTs CRPS 1, lower extremity (Acute) possible diagnosis Essential hypertension (Chronic 01/22/12) Foot pain, left (Chronic 12/04/16) Neuropathic vs. claudication Hyperlipidemia (Chronic 08/21/12) Hyperlipidemia (Chronic 08/21/12) Hypothyroidism (Chronic) Neuropathy (Chronic 12/07/16) left foot Palliative care patient (Acute) Unstable gait (Acute) walks with a walker antalgic gait Wernicke-Korsakoff syndrome (Acute) Surgical History S/P colectomy (Acute 12/26/18) lap converted to open sigmoid colectomy w/ primary stapled anastomosis and diverting loop ileostomy Family History Son Parent-child estrangement nec Father , in his 90s of old age No problems noted. Mother , in her 30s, murdered Murder Brother , age 50 Assault by being hit or run over by motor vehicle, sequela Social History Smoking/Tobacco Use Status: Current every day Tobacco Type: cigarettes Quit status: not considering quitting Counseling given: counseling >3 minutes Alcohol Intake: current Alcohol Intake frequency: 3 or more drinks per day Alcohol type: beer and hard liquor Counseling given: Yes Counseling provided: reduce to 2 or less/day Drug use: Never Substance use type: does not use Caregiver/Support person: No Household members: none Housing: apartment Number of Children: 1 Communication Needs: Corrective Lenses Education Level: high school Do you need help understanding health information?: Always current occupation: not working at this time Pets and animals: Yes (Mr Joel Sharp) Pets and animals: cat(s) What is your relationship status?: never How often do you talk on the phone with friends or family?: twice per week Panel score (0-1 are the most socially isolated patients): 0 What type of physical activity do you participate in: none Special carlie needs: No Agree to transfusion: Yes Seatbelt use: always Drive intox or ride w/intox 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 Has not been back to work since then. Twice has been found down, with elevated etoh level, covered in feces. Wants to return to work. 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 Thinks she could do her old job, but slowly. Exam Const General: uncooperative, comfortable, no acute distress, disheveled (Patient has feces on her extremities, on her depends) and ill appearing chronically Nutritional Appearance: cachectic, malnourished and underweight Orientation: alert and awake HENRI Head: normal to inspection Mouth: mucous membranes dry (Patient appears dry) Resp Effort & Inspection: normal respiratory effort, able to speak in complete sentences and no respiratory distress Auscultation: clear to auscultation bilaterally, no rales, no rhonchi and no wheezes Cardio Rate: regular rate Rhythm: regular rhythm Heart Sounds: S1 normal and S2 normal GI Inspection: normal to inspection (Ostomy draining, no surrounding erythema, warmth. No abdominal tenderness) Back/Spine/Pelvis Back: no CVA tenderness Skin General skin exam: erythema (Skin breakdown across the buttock, bilateral greater trochanter) Neuro General: alert, awake and oriented x3 Cognition: normal cognition Speech: speech normal Motor: muscle tone normal throughout, strength 5/5 throughout, no pronator drift, no movement abnormalities noted and no fasciculations Psych Appearance: grossly normal, poorly kempt and disheveled Mental Status: mental status grossly normal Speech and Movement: speech and movement normal
[2019-05-25 12:00] LABS: HCT 36.1 % (36.0-46.0); HGB 12.7 g/dL (12.0-15.5); Mean Corp. HGB Concentration 35.2 g/dL (32.0-36.0); Mean Corpuscular Hemoglobin 38.1 pg (27.0-33.0); Mean Corpuscular Volume 108.4 fL (80-95); Mean Platelet Volume 8.4 fL (8.0-11.0); Platelet Count 419 x1000/uL (130-400); RBC 3.33 m/cumm (4.00-5.20); RBC Distribution Width 15.1 % (11.7-14.6); White Blood Cell Count 3.11 k/cumm (4.4-10.8)
[2019-05-25] MEDS: Normal Saline 1,000 ML 1000 ML IV ×2 (12:03→13:04)
[2019-05-25] MEDS: Normal Saline Flush 10 ML SYR IVP (12:04)
[2019-05-25 12:05] LABS: *AMPHETAMINES SCREEN URINE Negative (Negative); *BARBITURATES SCREEN URINE Negative (Negative); *BENZODIAZEPINES SCREEN URINE Negative (Negative); Cannabinoids THC Negative (Negative); Cocaine Screen,Urine Negative (Negative); METHADONE URINE SCREEN Negative (Negative); OPIATES URINE SCREEN Negative (Negative)
[2019-05-25 12:07] LABS: Lactate 1.8 mmol/L (0.6-1.4)
[2019-05-25 12:09] LABS: Tricyclic Antidepressants Negative (Negative)
--- NOTE | 2019-05-25 12:09 | CMPROGNOTE_ITS ---
Care Management Progress Note CM met with Kayla to discuss current presentation and assess current service supports. Per Neeru, ED provider, EMS and [facility] RN report Kayla can not safely return home today as her apartment is in squalor. Beer cans, and used adult diapers are scattered throughout the home. Kayla is alert and oriented, and reports she has not currently been drinking but has been unable to clean her home and struggles to ambulate through the home with her FWW due to all that is scattered on the floor. She was found down by [facility] RN today who called EMS, per report Kayla believes she had been down and unable to get up since 0600. Kayla reports she is unable to bathe as she can not safely enter her clawfoot tub. She reports OT is supposed to be coming in this following week and states she has been sponge bathing with hot paper towels. She reports changing her ostomy bag last night and it dumping which she attributes to why she presented with stool over her body, clothes and socks. Kayla reports anticipating RN/PT/OT/PANEL WIRER and [facility] supports to begin this week. CM faxed request to [facility] to confirm current service supports. Kayla is also agreeable to [facility] referral if deemed appropriate. [facility] may need to be considered moving forward. Kayla reports she now has medicaid coverage but would not be agreeable to SNF stay. In the past when admitted to rehab, she has left AMA. Local facilities are unlikely to offer a bed to Kayla who is now well known to their facilities. When asked what she would like to see happen today, she reports she would like to be admitted, treated for pain, have a hot cup of coffee and to sleep. CM will continue to follow.
[2019-05-25 12:24] LABS: Absolute Eosinophil Count 0.09 k/cumm (0.0-0.7); Absolute Lymphocyte Count 0.81 k/cumm (1.2-3.4); Absolute Monocyte Count 0.31 k/cumm (0.11-0.7); Anisocytosis 1+; Diff Comment Manual Differential; Macrocytosis 2+; Polychromasia Present
[2019-05-25 12:25] LABS: Ammonia < 10 umol/L (11-32)
[2019-05-25 12:32] LABS: ALT 49 U/L (14-59); AST 101 U/L (15-37); Albumin 3.8 g/dL (3.4-5.0); Alkaline Phosphatase 106 U/L (46-116); Anion Gap 20.2 mmol/L (3-11); BUN 8 mg/dL (7-18); Bilirubin, Total 0.3 mg/dL (0.2-1.0); CO2 21.8 mmol/L (21.0-32.0); CREATININE 0.43 mg/dL (0.55-1.02); Calcium 9.2 mg/dL (8.5-10.1); Chloride 90 mmol/L (98-107); Creatine Kinase 148 U/L (26-192); ETHANOL BLOOD < 3.0 mg/dL (<3); Glucose 57 mg/dL (74-106); Lipase 54 U/L (73-393); Magnesium 1.4 mg/dL (1.8-2.4); Potassium 3.9 mmol/L (3.5-5.1); Sodium 132 mmol/L (136-145); Total Protein 7.7 g/dL (6.4-8.2)
[2019-05-25 12:33] LABS: Troponin I < 0.05 ng/Ml (<0.06)
[2019-05-25 12:45] LABS: Bilirubin Negative (Negative); Blood Trace-lysed (Negative); Clarity Clear (Clear); Glucose Negative (Negative); Ketones 80 mg/dL (Negative); Leukocyte Esterase Negative (Negative); Nitrite Negative (Negative); Urobilinogen 0.2 EU/dL (Up TO 0.2)
[2019-05-25 12:49] LABS: FREE T4 0.87 ng/dL (0.76-1.46)
[2019-05-25 12:53] LABS: Bacteria Rare HPF (Negative); C & S Indicated? No; Casts Negative LPF (Negative); Crystals Negative HPF (Negative); Epithelial Cells Moderate HPF (Negative); Mucus Negative (Negative); RBC 0-2 HPF (0-2); WBC 0-2 HPF (0-5)
--- NOTE | 2019-05-25 13:57 | HPE_ITS ---
Date of service: 05/25/19 Time of Service: 13:58 Assessment and Plan Assessment and plan (1) Failure to thrive: Start date: 05/25/19 Start time: 14:11 Status: Acute Assessment and plan: Well known older than stated age 58 y.o female admitted to [facility] for FTT after being found down on ground covered in stool by HH nurse. Colostomy was leaking and patient could not bath self due to weakness. Patient does not have good self care habits. Malnourished, alcohol dependence, though she states no alcohol in few days. She is being admitted for PT/OT, IV hydration, and electrolyte repletion. (2) Alcohol dependence: Start date: 05/25/19 Start time: 14:15 Status: Chronic Assessment and plan: States no alcohol in a few days however beer cans found around patient. Ethyl neg in ED, will place on CIWA, give multivitamin, thiamine, folic acid. (3) Unstable gait: Start date: 05/25/19 Start time: 14:21 Status: Acute Assessment and plan: Weakness, provider notes over last couple months regarding Ms. Leon weakness which appears to have acutely gotten worse. (4) Palliative care patient: Start date: 05/25/19 Start time: 14:21 Status: Acute Assessment and plan: Will consult pallative (5) Hypomagnesemia: Start date: 05/25/19 Start time: 14:22 Status: Acute Assessment and plan: 1.4 on admission. Repelete with both parental and PO mag and recheck in am. (6) Ileostomy present: Start date: 05/25/19 Start time: 14:56 Status: Acute Assessment and plan: Recently placed due to large abdominal abscess with a colovaginal fistula treated earlier this year with a colon resection/anastomosis/diverting ileostomy, continue care of ostomy. Placed on 11/2018. Would like it reversed. (7) Anemia: Start date: 05/25/19 Start time: 14:22 Status: Chronic Assessment and plan: Chronic, alcohol dependent continue multivitamin, folic acid and thiamine. (8) DVT prophylaxis: Start date: 05/25/19 Start time: 14:23 Status: Acute Assessment and plan: According to PCP last note patient was suppose to be on eliquis for DVT found over summer 2018, however pharmacy verifies patient has not had eliquis filled since 02/2019. For this we will be giving subcut heparin. (9) Chronic hyponatremia: Start date: 05/25/19 Start time: 14:25 Status: Acute Assessment and plan: Sodium level 132 however, compared to previous admissions this baseline for patient will hydrate with IVF and recheck BMP in a m. Above case discussed with Dr. Hearn who is in agreement History of Present Illness History of Present Illness Chief Complaint: FTT, Weakness Narrative: 58 y.o female well known to our service with PMH of ETOH dependence, COPD, Tobacco dependence, hypomagnesemia, hyponatremia, most recently abdominal abscess with a colovaginal fistula treated earlier this year with a colon resection/anastomosis/diverting ileostomy, presents to [facility] after being found down on ground by home health nurse. Ms. Leon was covered in stool with beer cans surrounding her though she states no alcohol in quite a few days it was her acquaintances who is a raging alcoholic ; her colostomy was leaking and she did not have the strength to wash herself per pt she missed the chair sitting down and slid herself to the ground feeling comfortable she did not get up. Ethyl alcohol was negative. Labs in ED remarkable for mag 1.4 and hyponatremia 132, though not profound for the patient, glucose 57, slightly elevated lactate 1.8. Mentation is AAOx3. Given prior presentations she looks well, though she is having increased weakness and failure to thrive for this reason she is being admitted to [facility] m/s obs. for further management. IVF hydration, CIWA, PT/OT and palliative care. She denies CP, SOB, N/V/D and is asking for something for pain, tea and sleep. Review of Systems All systems reviewed & are unremarkable except as noted in HPI and below PFSH Medical History Alcohol dependence (Chronic) drinking beer during visit; many empties around Arterial occlusive disease (Chronic Unknown) [place] [facility] [place]/30/16--bilateral & moderate Colostomy in place (Chronic) wants this reversed as soon as [facility] surgery team agrees Continuous chewing tobacco dependence (Inactive 01/22/12) COPD (chronic obstructive pulmonary disease) (Suspected) not proven, requires outpatient PFTs CRPS 1, lower extremity (Acute) possible diagnosis Essential hypertension (Chronic 01/22/12) Foot pain, left (Chronic 12/04/16) Neuropathic vs. claudication Hyperlipidemia (Chronic 08/21/12) Hyperlipidemia (Chronic 08/21/12) Hypothyroidism (Chronic) Neuropathy (Chronic 12/07/16) left foot Palliative care patient (Acute) Unstable gait (Acute) walks with a walker antalgic gait Wernicke-Korsakoff syndrome (Acute) Surgical History S/P colectomy (Acute 12/26/18) lap converted to open sigmoid colectomy w/ primary stapled anastomosis and diverting loop ileostomy Family History Son Parent-child estrangement nec Father , in his 90s of old age No problems noted. Mother , in her 30s, murdered Murder Brother , age 50 Assault by being hit or run over by motor vehicle, sequela Social History Smoking/Tobacco Use Status: Current every day Tobacco Type: cigarettes Quit status: not considering quitting Counseling given: counseling >3 minutes Alcohol Intake: current Alcohol Intake frequency: 3 or more drinks per day [place] type: beer and hard liquor Counseling given: Yes Counseling provided: reduce to 2 or less/day Drug use: Never Substance use type: does not use Caregiver/Support person: No Household members: none Housing: apartment Number of Children: 1 Communication Needs: Corrective Lenses Education Level: high school Do you need help understanding health information?: Always current occupation: not working at this time Pets and animals: Yes (Mr Joel Sharp) Pets and animals: cat(s) What is your relationship status?: never How often do you talk on the phone with friends or family?: twice per week Panel score (0-1 are the most socially isolated patients): 0 What type of physical activity do you participate in: none Special carlie needs: No Agree to transfusion: Yes Seatbelt use: always Drive intox or ride w/intox motor driver: No Working smoke detector in home: Yes Fire extinguisher in home: Yes Carbon monox detector in home: Yes Do you feel safe at home: Yes Additional Social history: Worked for [employer] until Apr 2018. Has not been back to work since then. Twice has been found down, with elevated etoh level, covered in feces. Wants to return to work. 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 Thinks she could do her old job, but slowly. Meds Home Medications and Allergies Home Medications Medication Instructions Recorded Confirmed Type diphenhydramine HCl [Benadryl] 25 mg PO DAILY PRN 08/14/16 05/25/19 History clotrimazole 60 g TOPICAL TID #0 g 09/14/18 05/25/19 Rx cyanocobalamin (vitamin B-12) 500 mcg PO DAILY #30 each 09/14/18 05/25/19 Rx magnesium oxide 800 mg PO BID #0 tab 09/14/18 05/25/19 Rx multivitamin 1 tab PO DAILY #30 tab 09/14/18 05/25/19 Rx vits A and D-white pet-lanolin 60 g TOPICAL TID #0 g 09/14/18 05/25/19 Rx aspirin 81 mg tablet,delayed 81 mg PO DAILY 01/14/19 05/25/19 History release acetaminophen 500 mg tablet 1,000 mg PO Q6H PRN tab 02/17/19 05/25/19 History cilostazol 100 mg tablet 100 mg PO BID 02/17/19 05/25/19 History methyl salicylate 15 %-menthol 10 1 applic TP BID PRN 02/17/19 05/25/19 History % topical cream apixaban 5 mg tablet 5 mg PO BID #60 tab 02/25/19 05/25/19 Rx triamcinolone acetonide 0.025 % 1 applic TP BID PRN #80 gm 02/25/19 05/25/19 Rx topical cream folic acid 1 mg tablet 1 mg PO DAILY 04/01/19 05/25/19 History calcium carbonate 200 mg calcium 200 mg PO TID 05/15/19 05/25/19 History (500 mg) chewable tablet omeprazole 20 mg capsule,delayed 20 mg PO DAILY 05/15/19 05/25/19 History release ondansetron HCl 4 mg tablet 4 mg PO Q6H PRN 05/15/19 05/25/19 History thiamine HCl (vitamin B1) 50 mg 50 mg PO DAILY 05/15/19 05/25/19 History tablet levothyroxine 100 mcg tablet 100 mcg PO 0600 #90 tab 05/19/19 05/25/19 Rx pregabalin 75 mg capsule 75 mg PO BID #30 cap 05/19/19 05/25/19 Rx lidocaine 4 % topical patch 1 patch TP Q24H PRN #6 each 05/22/19 05/25/19 Rx Allergies Allergy/AdvReac Type Severity Reaction Status Date / Time hydrochlorothiazide Allergy Severe RASH Verified 05/25/19 11:08 morphine Allergy Severe stops Verified 05/25/19 11:08 breathing simvastatin Allergy Intermediate rash Verified 05/25/19 11:08 Penicillins Allergy Unknown unknown Verified 05/25/19 11:08 adhesive tape AdvReac itching, Verified 05/25/19 11:08 redness under iv dressing. CANNABINOID Allergy Unknown Swelling/Ed Uncoded 05/25/19 11:08 hans Exam Const General: cooperative, no acute distress and ill appearing chronically Nutritional Appearance: malnourished Orientation: alert, awake and oriented x3 HENMT Head: normocephalic and atraumatic General nose exam: external nose normal Eyes Pupils: PERRL EOM: EOM intact bilaterally Neck Neck: normal visual inspection and full ROM Thyroid: thyroid normal Lymphatic: no lymphadenopathy noted Chest Chest: normal inspection of the chest Resp Effort & Inspection: normal respiratory effort Auscultation: clear to auscultation bilaterally Cardio Jugular venous pressure: no JVD Rate: regular rate Rhythm: regular rhythm Heart Sounds: S1 normal and S2 normal GI Inspection: other (colostomy with scar line) Palpation: soft and no hepatosplenomegaly Auscultation: hyperactive bowel sounds Rectal Exam - female: deferred General: CVA tenderness Back/Spine/Pelvis Back: no CVA tenderness Thoracic/Lumbar Spine: kyphosis Neuro General: alert, awake and oriented x3 Speech: speech normal Gait: normal gait Other: weak Extrem General: full ROM and no clubbing, cyanosis or edema Psych Mood: congruent mood Affect: normal affect Attitude: cooperative Results Labs Result diagrams: 05/25/19 11:50 05/25/19 11:50 Labs: Laboratory Results - last 24 hr 05/25/19 05/25/19 05/25/19 11:25 11:50 11:50 WBC RBC Hgb Hct MCV MCH MCHC RDW Plt Count MPV Immature Gran % Neutrophils % Band Neutrophils % Lymphocytes % Monocytes % Eosinophils % Basophils % Absolute Neutrophils Absolute Lymphocytes Absolute Monocytes Absolute Eosinophils Absolute Basophils Differential Comment RBC Morphology Polychromasia Anisocytosis Macrocytosis Sodium 132 L Potassium 3.9 Chloride 90 L Carbon Dioxide 21.8 Anion Gap 20.2 H BUN 8 Creatinine 0.43 L Estimated GFR/1.73 m2 >= 60.00 Glucose 57 L Lactate Calcium 9.2 Magnesium 1.4 L Total Bilirubin 0.3 AST 101 H ALT 49 Alkaline Phosphatase 106 Ammonia < 10 L Creatine Kinase 148 Troponin I < 0.05 Total Protein 7.7 Albumin 3.8 Lipase 54 TSH 33.80 H Free T4 0.87 Urine Color Urine Clarity Urine pH Ur Specific [place] Urine Protein Urine Ketones Urine Blood Urine Nitrite Urine Bilirubin Urine Urobilinogen Ur Leukocyte Esterase Urine RBC Urine WBC Ur Epithelial Cells Urine Crystals Urine Bacteria Urine Casts Urine Mucus Ur Culture Indicated? Urine Glucose Urine Opiates Screen Negative Urine Methadone Screen Negative Ur Barbiturates Screen Negative Ur Tricyclics Screen Negative Ur Amphetamines Screen Negative U Benzodiazepines Scrn Negative Urine Cocaine Screen Negative Ur THC Screen Negative Ethyl Alcohol < 3.0 05/25/19 05/25/19 05/25/19 11:50 11:50 12:30 WBC 3.11 L RBC 3.33 L Hgb 12.7 Hct 36.1 MCV 108.4 H MCH 38.1 H MCHC 35.2 RDW 15.1 H Plt Count 419 H MPV 8.4 Immature Gran % 0.0 Neutrophils % 45.0 Band Neutrophils % 16.0 Lymphocytes % 26.0 Monocytes % 10.0 Eosinophils % 3.0 Basophils % 0.0 Absolute Neutrophils 1.90 Absolute Lymphocytes 0.81 L Absolute Monocytes 0.31 Absolute Eosinophils 0.09 Absolute Basophils 0.00 Differential Comment Manual differential RBC Morphology See below Polychromasia Present Anisocytosis 1+ Macrocytosis 2+ Sodium Potassium Chloride Carbon Dioxide Anion Gap BUN Creatinine Estimated GFR/1.73 m2 Glucose Lactate 1.8 H Calcium Magnesium Total Bilirubin AST ALT Alkaline Phosphatase Ammonia Creatine Kinase Troponin I Total Protein Albumin Lipase TSH Free T4 Urine Color Yellow Urine Clarity Clear Urine pH 6.0 Ur Specific [place] 1.020 Urine Protein 30 H Urine Ketones 80 H Urine Blood Trace-lysed H Urine Nitrite Negative Urine Bilirubin Negative Urine Urobilinogen 0.2 Ur Leukocyte Esterase Negative Urine RBC 0-2 Urine WBC 0-2 Ur Epithelial Cells Moderate Urine Crystals Negative Urine Bacteria Rare Urine Casts Negative Urine Mucus Negative Ur Culture Indicated? No Urine Glucose Negative Urine Opiates Screen Urine Methadone Screen Ur Barbiturates Screen Ur Tricyclics Screen Ur Amphetamines Screen U Benzodiazepines Scrn Urine Cocaine Screen Ur THC Screen Ethyl Alcohol 05/25/19 13:53 WBC RBC Hgb Hct MCV MCH MCHC RDW Plt Count MPV Immature Gran % Neutrophils % Band Neutrophils % Lymphocytes % Monocytes % Eosinophils % Basophils % Absolute Neutrophils Absolute Lymphocytes Absolute Monocytes Absolute Eosinophils Absolute Basophils Differential Comment RBC Morphology Polychromasia Anisocytosis Macrocytosis Sodium Potassium Chloride Carbon Dioxide Anion Gap BUN Creatinine Estimated GFR/1.73 m2 Glucose Lactate Calcium Magnesium Total Bilirubin AST ALT Alkaline Phosphatase Ammonia Creatine Kinase Troponin I Cancelled Total Protein Albumin Lipase TSH Free T4 Urine Color Urine Clarity Urine pH Ur Specific [place] Urine Protein Urine Ketones Urine Blood Urine Nitrite Urine Bilirubin Urine Urobilinogen Ur Leukocyte Esterase Urine RBC Urine WBC Ur Epithelial Cells Urine Crystals Urine Bacteria Urine Casts Urine Mucus Ur Culture Indicated? Urine Glucose Urine Opiates Screen Urine Methadone Screen Ur Barbiturates Screen Ur Tricyclics Screen Ur Amphetamines Screen U Benzodiazepines Scrn Urine Cocaine Screen Ur THC Screen Ethyl Alcohol Last Vital Signs Temp 36.4 C L 05/25/19 11:00 Pulse 104 H 05/25/19 12:48 Resp 18 05/25/19 12:48 BP 165/77 H 05/25/19 12:48 Pulse Ox 97 05/25/19 12:48
[2019-05-25] MEDS: MAGNESIUM SULFATE 4 GM/100 ML BAG IVPB (15:22)
[2019-05-25] MEDS: LORazepam 1 MG TAB PO/SL ×2 (15:23→20:48)
[2019-05-25] MEDS: Heparin 5,000 UNITS/ML VIAL 5000 UNITS SC ×2 (15:24→22:02)
[2019-05-25] MEDS: Calcium Carbonate *TUMS* 500 MG CHEW PO ×2 (15:24→20:31)
[2019-05-25] MEDS: Magnesium Oxide 400 MG TAB 800 MG PO ×2 (15:24→20:30)
[2019-05-25] MEDS: Lactated Ringers 1,000 ML 50 ML IV (15:25)
--- NOTE | 2019-05-25 16:59 | POCOE_ITS ---
Date of service: 05/25/19 Time of Service: 17:01 History of Present Illness History of Present Illness Chief Complaint: Left foot pain Narrative: Kayla is a 58-year-old female who was seen in her room at bedside who was admitted for failure to thrive. She has ongoing complaints of discomfort in her left foot. Kayla is well-known to me. In fact, she was recently seen at [facility] earlier this month by neurology who had contacted me and discussed her case primarily trying to gather documents as far as prior MRI x-ray studies and what procedures had been performed. When I asked Kayla about this she is unable to tell me anything meaningful about that visit other than they told me to come back and see you [facility] Medical History Alcohol dependence (Chronic) drinking beer during visit; many empties around Arterial occlusive disease (Chronic Unknown) [place] [facility] [place]bilateral & moderate Continuous chewing tobacco dependence (Inactive 01/22/12) COPD (chronic obstructive pulmonary disease) (Suspected) not proven, requires outpatient PFTs CRPS 1, lower extremity (Acute) possible diagnosis Essential hypertension (Chronic 01/22/12) Foot pain, left (Chronic 12/04/16) Neuropathic vs. claudication Hyperlipidemia (Chronic 08/21/12) Hyperlipidemia (Chronic 08/21/12) Hypothyroidism (Chronic) Neuropathy (Chronic 12/07/16) left foot Palliative care patient (Acute) Unstable gait (Acute) walks with a walker antalgic gait Wernicke-Korsakoff syndrome (Acute) Surgical History S/P colectomy (Acute 12/26/18) lap converted to open sigmoid colectomy w/ primary stapled anastomosis and diverting loop ileostomy Family History Son Parent-child estrangement nec Father , in his 90s of old age No problems noted. Mother , in her 30s, murdered Murder Brother , age 50 Assault by being hit or run over by motor vehicle, [place] Social History Smoking/Tobacco Use Status: Current every day Tobacco Type: cigarettes Quit status: not considering quitting Counseling given: counseling >3 minutes Alcohol Intake: current Alcohol Intake frequency: 3 or more drinks per day Alcohol type: beer and hard liquor Counseling given: Yes Counseling provided: reduce to 2 or less/day Drug use: Never Substance use type: does not use Caregiver/Support person: No Household members: none Housing: apartment Number of Children: 1 Communication Needs: Corrective Lenses Education Level: high school Do you need help understanding health information?: Always current occupation: not working at this time Pets and animals: Yes (Mr Joel Sharp) Pets and animals: cat(s) What is your relationship status?: never How often do you talk on the phone with friends or family?: twice per week Panel score (0-1 are the most socially isolated patients): 0 What type of physical activity do you participate in: none Special carlie needs: No Agree to transfusion: Yes Seatbelt use: always Drive intox or ride w/intox speedboat driver: No Working smoke detector in home: Yes Fire extinguisher in home: Yes Carbon monox detector in home: Yes Do you feel safe at home: Yes Additional Social history: Worked for [employer] until Apr 2018. Has not been back to work since then. Twice has been found down, with elevated etoh level, covered in feces. Wants to return to work. 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 Thinks she could do her old job, but slowly. Exam Narrative Exam Narrative: Kayla is seen at bedside. She recognizes me. She is fairly cooperative. She continues to have complaints of pain in her left foot which is constant in nature. She asks if I am able to amputate her leg. Her admission labs are reviewed as documented in this note, her admitting H&P was reviewed. Physical exam: Kayla is wasting away with significant muscle loss appreciated in both lower and upper extremities. Her calves although extremely small were nontender to palpation without signs of DVT. Her feet are warm to the touch although ankle pulses were not palpable. Capillary return to the digits was on the 5 seconds. ABIs were attempted but readings were not possible possibly due to incompressible vessels and or absent pulses. No peripheral edema was seen. Skin is intact on the left lower extremity as well as the right although there is a small scab on the posterior aspect of the right heel which appears clean. There is no drainage or signs of active infection. Toenails are yellowed in appearance but otherwise grossly benign at this time. Muscle groups are 5 out of 5 bilaterally although weak. Skeletal exam no gross deformities were noted no joint inflammation was detected especially of the left foot. Neurologically toes were downgoing no focal deficits noted. I have had concerns previously of a possible tarsal tunnel syndrome in her left lower extremity and or intermetatarsal neuroma but she failed conservative treatment consisting of selective nerve injections to determine relief of symptomatology leading me to believe that she had a radiculopathy for which she was referred to [facility]. Impressions: Chronic pain left lower extremity etiology unclear but possibly radicular in nature versus alcohol neuropathy versus TTS. Plan: I really have nothing to add to Kayla's care at this point. I explained to Kayla that we had already given her as a series of injections which did not help as an outpatient and I see no point in repeating them while she is here. Encourage continued exploration of pregabalin and products of that nature in an effort to give her some relief of symptoms. Thank you for the consultation Results Last Vital Signs Temp 37 C 05/25/19 15:36 Pulse 111 H 05/25/19 15:36 Resp 18 05/25/19 15:36 BP 190/92 H 05/25/19 15:36 Pulse Ox 98 05/25/19 15:36 Labs Result diagrams: 05/25/19 11:50 05/25/19 11:50 Labs: Laboratory Results - last 24 hr 05/25/19 05/25/19 05/25/19 11:25 11:50 11:50 WBC RBC Hgb Hct MCV MCH MCHC RDW Plt Count MPV Immature Gran % Neutrophils % Band Neutrophils % Lymphocytes % Monocytes % Eosinophils % Basophils % Absolute Neutrophils Absolute Lymphocytes Absolute Monocytes Absolute Eosinophils Absolute Basophils Differential Comment RBC Morphology Polychromasia Anisocytosis Macrocytosis Sodium 132 L Potassium 3.9 Chloride 90 L Carbon Dioxide 21.8 Anion Gap 20.2 H BUN 8 Creatinine 0.43 L Estimated GFR/1.73 m2 >= 60.00 Glucose 57 L Lactate Calcium 9.2 Magnesium 1.4 L Total Bilirubin 0.3 AST 101 H ALT 49 Alkaline Phosphatase 106 Ammonia < 10 L Creatine Kinase 148 Troponin I < 0.05 Total Protein 7.7 Albumin 3.8 Lipase 54 TSH 33.80 H Free T4 0.87 Urine Color Urine Clarity Urine pH Ur Specific [place] Urine Protein Urine Ketones Urine Blood Urine Nitrite Urine Bilirubin Urine Urobilinogen Ur Leukocyte Esterase Urine RBC Urine WBC Ur Epithelial Cells Urine Crystals Urine Bacteria Urine Casts Urine Mucus Ur Culture Indicated? Urine Glucose Urine Opiates Screen Negative Urine Methadone Screen Negative Ur Barbiturates Screen Negative Ur Tricyclics Screen Negative Ur Amphetamines Screen Negative U Benzodiazepines Scrn Negative Urine Cocaine Screen Negative Ur THC Screen Negative Ethyl Alcohol < 3.0 05/25/19 05/25/19 05/25/19 11:50 11:50 12:30 WBC 3.11 L RBC 3.33 L Hgb 12.7 Hct 36.1 MCV 108.4 H MCH 38.1 H MCHC 35.2 RDW 15.1 H Plt Count 419 H MPV 8.4 Immature Gran % 0.0 Neutrophils % 45.0 Band Neutrophils % 16.0 Lymphocytes % 26.0 Monocytes % 10.0 Eosinophils % 3.0 Basophils % 0.0 Absolute Neutrophils 1.90 Absolute Lymphocytes 0.81 L Absolute Monocytes 0.31 Absolute Eosinophils 0.09 Absolute Basophils 0.00 Differential Comment Manual differential RBC Morphology See below Polychromasia Present Anisocytosis 1+ Macrocytosis 2+ Sodium Potassium Chloride Carbon Dioxide Anion Gap BUN Creatinine Estimated GFR/1.73 m2 Glucose Lactate 1.8 H Calcium Magnesium Total Bilirubin AST ALT Alkaline Phosphatase Ammonia Creatine Kinase Troponin I Total Protein Albumin Lipase TSH Free T4 Urine Color Yellow Urine Clarity Clear Urine pH 6.0 Ur Specific [place] 1.020 Urine Protein 30 H Urine Ketones 80 H Urine Blood Trace-lysed H Urine Nitrite Negative Urine Bilirubin Negative Urine Urobilinogen 0.2 Ur Leukocyte Esterase Negative Urine RBC 0-2 Urine WBC 0-2 Ur Epithelial Cells Moderate Urine Crystals Negative Urine Bacteria Rare Urine Casts Negative Urine Mucus Negative Ur Culture Indicated? No Urine Glucose Negative Urine Opiates Screen Urine Methadone Screen Ur Barbiturates Screen Ur Tricyclics Screen Ur Amphetamines Screen U Benzodiazepines Scrn Urine Cocaine Screen Ur THC Screen Ethyl Alcohol 05/25/19 13:53 WBC RBC Hgb Hct MCV MCH MCHC RDW Plt Count MPV Immature Gran % Neutrophils % Band Neutrophils % Lymphocytes % Monocytes % Eosinophils % Basophils % Absolute Neutrophils Absolute Lymphocytes Absolute Monocytes Absolute Eosinophils Absolute Basophils Differential Comment RBC Morphology Polychromasia Anisocytosis Macrocytosis Sodium Potassium Chloride Carbon Dioxide Anion Gap BUN Creatinine Estimated GFR/1.73 m2 Glucose Lactate Calcium Magnesium Total Bilirubin AST ALT Alkaline Phosphatase Ammonia Creatine Kinase Troponin I Cancelled Total Protein Albumin Lipase TSH Free T4 Urine Color Urine Clarity Urine pH Ur Specific [place] Urine Protein Urine Ketones Urine Blood Urine Nitrite Urine Bilirubin Urine Urobilinogen Ur Leukocyte Esterase Urine RBC Urine WBC Ur Epithelial Cells Urine Crystals Urine Bacteria Urine Casts Urine Mucus Ur Culture Indicated? Urine Glucose Urine Opiates Screen Urine Methadone Screen Ur Barbiturates Screen Ur Tricyclics Screen Ur Amphetamines Screen U Benzodiazepines Scrn Urine Cocaine Screen Ur THC Screen Ethyl Alcohol
[2019-05-25] MEDS: Acetaminophen 325 MG TAB PO (20:31)
[2019-05-25] MEDS: Pregabalin 25 MG CAP 75 MG PO (20:33)
[2019-05-25] MEDS: Cilostazol 100 MG TAB PO (20:33)
[2019-05-25] MEDS: Clotrimazole 1% 15 GM TUBE TP (20:34)
[2019-05-26] VITALS (13 sets, daily range): BP systolic 94–146; BP diastolic 58–84; PULSE 67–125; RESP 16–20; TEMP 36.6–38.7; O2SAT 94–98
[2019-05-26] MEDS: Levothyroxine 100 MCG TAB PO (05:24)
[2019-05-26] MEDS: Heparin 5,000 UNITS/ML VIAL 5000 UNITS SC ×3 (05:24→21:30)
[2019-05-26] MEDS: LORazepam 1 MG TAB PO/SL (05:55)
[2019-05-26 07:12] LABS: Abs Immature Grans 0.01 k/cumm (0.0-0.09); Absolute Basophil Count 0.01 k/cumm (0.0-0.2); Absolute Eosinophil Count 0.02 k/cumm (0.0-0.7); Absolute Lymphocyte Count 0.51 k/cumm (1.2-3.4); Absolute Monocyte Count 0.34 k/cumm (0.11-0.7); Basophils % 0.4; Eosinophils % 0.8; HCT 31.5 % (36.0-46.0); HGB 10.8 g/dL (12.0-15.5); Immature Grans % 0.4 %; Lymphocytes % 19.7; Mean Corp. HGB Concentration 34.3 g/dL (32.0-36.0); Mean Corpuscular Volume 107.9 fL (80-95); Mean Platelet Volume 8.6 fL (8.0-11.0); Monocytes % 13.1; Neutrophils % 65.6; Platelet Count 323 x1000/uL (130-400); RBC 2.92 m/cumm (4.00-5.20); RBC Distribution Width 14.9 % (11.7-14.6); White Blood Cell Count 2.59 k/cumm (4.4-10.8)
[2019-05-26 07:24] LABS: Anion Gap 10.2 mmol/L (3-11); BUN 8 mg/dL (7-18); CO2 25.8 mmol/L (21.0-32.0); CREATININE 0.53 mg/dL (0.55-1.02); Calcium 8.6 mg/dL (8.5-10.1); Chloride 92 mmol/L (98-107); Glucose 140 mg/dL (74-106); Potassium 4.1 mmol/L (3.5-5.1); Sodium 128 mmol/L (136-145)
--- NOTE | 2019-05-26 07:43 | PDOC.CMIN ---
- If Service Date Differs Date of service: 05/26/19 Time of Service: 07:43 Care Management Initial Assess REASON FOR HOSPITALIZATION:: failure to thrive PAST MEDICAL HISTORY/PAST SURGICAL HISTORY:: Medical History : Alcohol dependence (Chronic). drinking beer during visit; many empties around. Arterial occlusive disease (Chronic Unknown). ABIs [facility] [place] [facility] 11/30/16--bilateral & moderate. Colostomy in place (Chronic). wants this reversed as soon as [facility] surgery team agrees. Continuous chewing tobacco dependence (Inactive 01/22/12). COPD (chronic obstructive pulmonary disease) (Suspected). not proven, requires outpatient PFTs. CRPS 1, lower extremity (Acute). possible diagnosis. Essential hypertension (Chronic 01/22/12). Foot pain, left (Chronic 12/04/16). Neuropathic vs. claudication. Hyperlipidemia (Chronic 08/21/12). Hyperlipidemia (Chronic 08/21/12). Hypothyroidism (Chronic). Neuropathy (Chronic 12/07/16). left foot. Palliative care patient (Acute). Unstable gait (Acute). walks with a walker. antalgic gait. Wernicke-Korsakoff syndrome (Acute). Surgical History: S/P colectomy (Acute 12/26/18). lap converted to open sigmoid colectomy w/ primary stapled anastomosis and diverting loop ileostomy PREVIOUS FUNCTIONAL STATUS/SOCIAL/FAMILY SUPPORTS:: Kayla lives alone in a first floor apt. in [place]. She has been failing for some time without successful community intervention. She is no longer able to safely care for herself, as evidenced by multiple pressure sores and unkept condition present on last admission. 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 CURRENT FUNCTIONAL STATUS:: Kayla was lying in bed appearing pale and ill. Her temperature was 38.7 C and she was tachycardic with a heartrate over 100. She stated that she wishes that she had brought her belongings with her as well as her cat. When asked why, she stated that she wants to go back to [place]. She denies having friends or family there but she said it's home. ADVANCE DIRECTIVES:: None on file Has patient been provided with information about the portal?: No Did the patient sign up for the portal?: No CODE STATUS:: Full Code INSURANCE COVERAGE / FINANCIAL ISSUES:: Medicaid CURRENT HOME/COMMUNITY SERVICES/EQUIPMENT:: HH nursing, [employer], PT,and OT.Kayla uses a walker for ambulation. PRIMARY CARE PHYSICIAN:: Chidi Mccormack POTENTIAL DISCHARGE NEEDS:: Follow up with PCP and discharge plan of care PATIENT/FAMILY EDUCATION NEEDS:: Discharge plan, limitations, follow up plan and Ask me Three TRANSPORTATION:: via RCT depending on final discharge plan PLAN:: Kayla has been failing at home. She is unable to care for herself and is now acutely ill. She may need LTM and placement when medically improved, although she does not want to go to a SNF. CM will continue to support patient and discharge planning needs.
--- NOTE | 2019-05-26 08:43 | DI.RAD_ITS ---
EXAM: XR CHEST 2V PA LATERAL INDICATION: febrile COMPARISON: XR PORTABLE CHEST AP POST LINE from 02/03/2019 TECHNIQUE: 2D digital imaging was performed. FINDINGS: Heart size and pulmonary vasculature are within normal limits. No focal consolidating infiltrates ar e seen. There is blunting seen of the angles posteriorly bilaterally suggesting small pleural effusio ns. No pneumothorax is identified. Degenerative changes are seen in the spine. IMPRESSION: Small bilateral pleural effusions.
[2019-05-26 09:27] LABS: C-Reactive Protein 3.44 mg/dL (0.0-0.3)
[2019-05-26 09:47] LABS: Lactate 2.8 mmol/L (0.6-1.4)
[2019-05-26] MEDS: Folic Acid 1 MG TAB PO (09:55)
[2019-05-26] MEDS: Multivitamin TAB 1 TAB PO (09:55)
[2019-05-26] MEDS: Cyanocobalamin 500 MCG TAB PO (09:55)
[2019-05-26] MEDS: Magnesium Oxide 400 MG TAB 800 MG PO ×2 (09:55→21:13)
[2019-05-26] MEDS: Aspirin E.C. 81 MG TABEC PO (09:56)
[2019-05-26] MEDS: Calcium Carbonate *TUMS* 500 MG CHEW PO ×3 (09:56→21:13)
[2019-05-26] MEDS: Omeprazole 20 MG CAPCR PO (09:56)
[2019-05-26] MEDS: Pregabalin 25 MG CAP 75 MG PO ×2 (09:56→21:13)
[2019-05-26] MEDS: Cilostazol 100 MG TAB PO ×2 (09:57→21:12)
[2019-05-26] MEDS: Acetaminophen 325 MG TAB PO ×2 (09:57→21:21)
[2019-05-26] MEDS: Thiamine 100 MG TAB PO (09:57)
[2019-05-26] MEDS: Normal Saline 1,000 ML 100 ML IV (09:58)
--- NOTE | 2019-05-26 12:10 | IN_ITS ---
Date of service: 05/26/19 Time of Service: 11:00 PT Notes Visit Reasons: FAILURE TO THRIVE, WEAKNESS Physical Therapy Inpatient Initial Evaluation Date: 05/26/2019 Referring Doctor: Tiarra Cavanaugh NP PT Orders: PT CONSULT: Limited ability Precautions: Fall. Enteric contact precautions. Patient Profile/Admitting Diagnosis: Patient is a 58-year-old female with past medical history significant for arterial occlusive disease, neuropathy, foot pain, history of ETOH abuse, and hypothyroidism who presented to the ED via EMS on 05/25/2019 due to a mechanical fall. Patient states that she slid onto the floor from her chair. Patient was diagnosed with failure to thrive, hypoma gnesemia, and chronic hyponatremia. Referral for physical therapy was made to address impairments in strength, balance, and mobility level. PMHX: Medical History Alcohol dependence (Chronic) drinking beer during visit; many empties around Arterial occlusive disease (Chronic Unknown) ABIs [facility] [place] [facility] 11/30/16--bilateral & moderate Colostomy in place (Chronic) wants this reversed as soon as [facility] surgery team agrees Continuous chewing tobacco dependence (Inactive 01/22/12) COPD (chronic obstructive pulmonary disease) (Suspected) not proven, requires outpatient PFTs CRPS 1, lower extremity (Acute) possible diagnosis Essential hypertension (Chronic 01/22/12) Foot pain, left (Chronic 12/04/16) Neuropathic vs. claudication Hyperlipidemia (Chronic 08/21/12) Hyperlipidemia (Chronic 08/21/12) Hypothyroidism (Chronic) Neuropathy (Chronic 12/07/16) left foot Palliative care patient (Acute) Unstable gait (Acute) walks with a walker Antalgic gait Wernicke-Korsakoff syndrome (Acute) Surgical History S/P colectomy (Acute 12/26/18) lap converted to open sigmoid colectomy w/ primary stapled anastomosis and diverting loop ileostomy Social History/Home Situation: Patient lives at alone in an apartment in [place], [place]. She states she is independent with all aspects of ADLs without assistive ambulatory devices nor adaptive equipment. She reports she has worked for a long time at [employer]. Equipment Owned/DME: None. Subjective: Patient is agreeable to a PT consult. She denies any headaches and dizziness. Does report generalized body weakness. Objective: General Observation: Ecchymoses to bilateral forearms as well as on bilateral knees. Mental Status: Alert and oriented as to person and place Pain: Patient reports discomfort on sacral area ROM: Right Upper Extremity: Shoulder Flexion 0-80. Shoulder abduction 0-60. Elbow flexion WFL. Wrist flexion WFL. Functional opening and closing of hand WFL. Left Upper Extremity: Shoulder Flexion WFL. Shoulder abduction WFL. Elbow flexion WFL. Wrist flexion WFL. Functional opening and closing of hand WFL. Right Lower Extremity: Hip flexion WFL. Hip abduction WFL. Knee flexion WFL. Ankle dorsiflexion WFL. Ankle plantarflexion WFL. Left Lower Extremity: Hip flexion WFL. Hip abduction WFL. Knee flexion WFL. Ankle dorsiflexion WFL. Ankle plantarflexion WFL. STRENGTH: Right Upper Extremity: Shoulder flexors 3-/5. Shoulder abductors 3-/5. Elbow flexors 4/5. Elbow extensors 4/5. Agricultural Extension Agent strong. Left Upper Extremity: Shoulder flexors 4/5. Shoulder abductors 4/5. Elbow flexors 4/5. Elbow extensors 4/5. Agricultural Extension Agent strong. Right Lower Extremity:Hip flexors 3+/5. Hip abductors 3+/5. Knee flexors 3+/5. Knee extensors 4-/5. Ankle dorsiflexors 4/5. Ankle plantarflexors 4/5. Left Lower Extremity: Hip flexors 3+/5. Hip abductors 3+/5. Patient was able to tolerate minimal resistance provided to hip and knee extension in supine. Knee flexors 3+/5. Knee extensors 4-/5. Ankle dorsiflexors 4/5. Ankle plantarflexors 4/5. Sensation: Intact as to pain and pressure to B LE. BED MOBILITY LEVELS/TRANSFERS Supine to sit minimal assist Sit to supine minimal assist Sit to stand: minimal assist Stand to sit minimal assist Bed to chair minimal assist Chair to bed minimal assist Gait: Patient took 2-3 steps from bed to chair but reported fatigue. Patient used FWW with moderate to maximal verbal cues provided for safety. Balance: Static Sitting: Fair Dynamic Sitting: Fair Static Standing: Fair Dynamic Standing: Poor Special Tests: Mobility Limitations Standardized Measure [facility] AM-PAC 6 clicks Basic Mobility Inpatient Short Form: Raw Score: 15 CMS Score: 57.7% deficit Informed Consent/Education: Patient instructed in purpose of PT consult and plan of care. Assessment: Patient is a 58-year-old female with past medical history significant for arterial occlusive disease, neuropathy, foot pain, history of ETOH abuse, and hypothyroidism who presented to the ED via EMS on 05/25/2019 due to a mechanical fall. Patient states that she slid onto the floor from her chair. Patient was diagnosed with failure to thrive, hypomagnesemia, and chronic hyponatremia. Patient presents with the following impairment level findings: 1. Decreased strength to B LE major muscle groups 2. Impaired sitting/standing balance 3. Impaired activity tolerance Impairments are contributing to the following functional limitations: 1. Dependent bed mobility skills 2. Increased dependence with transfers 3. Inability to safely ambulate without assistive device and physical assistance 4. Increase completion time for mobility ADL performance 5. Increased fall risk 6. Inability to negotiate steps alone safely History: 58-year-old female previously independent with all aspects of ADLs without use of any assistive ambulatory devices nor adaptive equipment who was admitted to the ED for generalized weakness, hyponatremia, failure to thrive, left foot pain and buttock pain Examination: Underlying impairments and functional limitations as noted above Presentation: Evolving Decision Makin moderate complexity Goals: Goals X1 week 1. Supine-Sit independent 2. Sit-Supine independent 3. Sit-Stand independent 4. Stand-Sit independent 5. Bed-Chair independent 6. Chair-Bed independent 7. Independent gait on level surface with use of least restrictive device for at least 100 feet without report of pain nor dyspnea 8. Independent stair negotiation while holding onto bilateral rails for at least 5 steps without report of pain nor dyspnea 9. Independent with home exercise program 10. Good static and dynamic standing balance/tolerance Plan of Care/Treatment Plan: 1-2x/day, 7 days/week x 1 week. Plan of care has been reviewed with the CAFETERIA AIDE providing the service under Physical Therapy direction. Initiate Physical Therapy intervention for strengthening, bed mobility, transfers, gait, stairs, balance training, use of assistive device. DISCHARGE RECOMMENDATIONS: Patient will benefit from usp facility placement in order to maximize functional mobility level. Patient benefit from a front wheeled walker to maximize mobility and reduce fall risk TREATMENT CODE/TIME: 9716 2 x 30 minutes beginning at 11 AM. Thank you very much for this referral. Kenia Saba PT, DPT, CLT [facility] Inpatient PT at [facility]
[2019-05-26] MEDS: CEFEPIME 1 GM in Normal Saline 50 ML IVPB (12:23)
[2019-05-26] MEDS: Normal Saline 1,000 ML 1000 ML IV (12:24)
--- NOTE | 2019-05-26 13:00 | W.NUTCONSULT ---
Date of service: 05/26/19 Time of Service: 13:00 Nutritional Consult ASSESSMENT: 58 year old female admitted with adult failure to thrive, malnutrition, hyponatremia, hypmagnesium. PMH: s/p colon resection with colostomy. BMI 15 indicating underweight status, appears malnourished with loss of muscle, loss of subcutaneous fat and weakness. Met with Kayla and she reports she receives meals on wheels but she is unclear on how she feeds self at home. Has long hx of ETOH abuse. Meds include MVI, folic acid and thiamine. At high nutritional risk in a view of frequent hospitalization and inability to care for self in her apartment . Currently NPO but will monitor po intake once diet advanced. Endentulous but reports able to consume most textures. Estimated needs: [id number] kcal, 40-50 g protein, 1500 ml fluid NUTRITIONAL DIAGNOSIS: malnutrition INTERVENTION: will monitor po intake, labs and weight and intervene as warranted Time Spent in Nutritional Counseling and Treatment: 15 min spent face to face
--- NOTE | 2019-05-26 13:12 | DI.US_ITS ---
EXAM: US EXTREMITY VENOUS BI CLINICAL HISTORY: H/O DVT, NONCOMPLIANT ON BLOOD THINNERS, R/O DVT. TECHNIQUE: Bilateral lower extremity venous ultrasound performed using grayscale, color-flow, and sp ectral Doppler analysis. COMPARISON: No previous for comparison. FINDINGS: The bilateral common femoral, femoral and popliteal veins demonstrate normal compressibility, augment ation, and color Doppler. The posterior tibial veins are patent. Saphenofemoral junctions are unrema rkable. No Wesley's cysts are present. IMPRESSION: Right: Negative for DVT Left: Negative for DVT
[2019-05-26] MEDS: Omnipaque 350 MG/ML 50 ML BTL PO (13:14)
[2019-05-26] MEDS: Breeza Beverage 473 ML BTL PO ×2 (13:16→13:17)
--- NOTE | 2019-05-26 13:50 | DI.CT_ITS ---
EXAM: CT ABDOMEN and PELVIS W CLINICAL HISTORY: FEVER, FAILURE TO THRIVE, WEAKNESS. TECHNIQUE: Imaging Protocol: Axial computed tomography images with coronal and sagittal reformatted images were created and reviewed CONTRAST MATERIAL: Intravenous: Omnipaque 350 Contrast volume:56 mL Oral: Yes COMPARISON: CT ABDOMEN PELVIS W from 11/26/2018 FINDINGS: ABDOMEN: Lung Bases: Small bilateral pleural effusions with subjacent infiltrates, which may represent atelect asis or pneumonia. Liver: Normal density. No measurable mass. Gallbladder and biliary tract: No radiodense calculus or dilation. Pancreas: Normal density, no abnormal calcifications or inflammatory process. Spleen: Normal. Kidneys: Normal size, contour and axis. No radiodense stones or obstructive uropathy. No masses seen. Adrenal glands: No masses seen. Abdominal Aorta: Atherosclerosis. No aneurysm. PELVIS: Bladder: Moderately distended. No focal bladder wall thickening. No intraluminal mass. Bowel: Colorectal anastomosis. Diverticulosis of the colon but no evidence of acute diverticulitis. Right lower quadrant ostomy. No evidence of bowel obstruction. No evidence of a bowel inflammatory process. Peritoneal cavity: No ascites, collection or mesenteric inflammatory response. No focal fluid collect ion to suggest an abscess. No pneumoperitoneum. Bones: Degenerative changes. Reproductive organs: Within normal limits. Lymph nodes: Unremarkable. Impression: 1. Postsurgical changes with a colorectal anastomosis and right lower quadrant ostomy. 2. No evidence of an abdominal or pelvic abscess. 3. Small bilateral pleural effusions with subjacent infiltrates, which may represent atelectasis or p neumonia. DATA REPOSITORY: All CT scans at this facility are submitted to the National Radiology Data Registry (NRDR) Dose Index Registry (DIR) with the [employer] ([employer]). RADIATION OPTIMIZATION: All CT scans at this facility use at least one of these dose optimization te chniques: automated exposure control; mA and/or kV adjustment per patient size (includes targeted exa ms where dose is matched to clinical indication); or iterative reconstruction.
[2019-05-26] MEDS: Omnipaque 350 MG/ML 100 ML BTL IJ (14:02)
--- NOTE | 2019-05-26 14:37 | W.PM.PROGNOT ---
Date of Service Date of service: 05/26/19 Time of Service: 14:37 Assessment and Plan Assessment and plan (1) Fever: Start date: 05/26/19 Start time: 14:43 Status: Acute Assessment and plan: Fever of unknown origin. No associated symtpoms. HR is elevated in 110-120's, telemetry ordered, bp soft, 1 liter bolus given. T max 38.7. CRP 3.44, lactate up from 1.0 to 2.8 repeat around 1900. Started on cefepime and vanco until source ruled out. Hx of DVT over summer 2018, no calf pain swelling or tenderness, however given history and fever will r/o. U/S BLE negative for DVT Influenza- negative for a and b CXR with small bilateral pleural effusions. CT abd and pelvis with history of abscess-pending Cdiff stool BC pending. Tylenol for fever and continue to monitor. (2) Failure to thrive: Start date: 05/26/19 Start time: 14:47 Status: Acute Assessment and plan: sodium 128 today, mag 2.0, tolerating diet. Does not take very well of herself at home. She would rather feed her cat then herself. (3) Alcohol dependence: Start date: 05/26/19 Status: Chronic Assessment and plan: CIWA overnight 3. Continue to monitor. (4) Unstable gait: Start date: 05/26/19 Start time: 14:50 Status: Acute Assessment and plan: Will have PT/OT work with patient when she is feeling better. (5) Palliative care patient: Start date: 05/26/19 Start time: 14:51 Status: Acute Assessment and plan: Will consult pallative (6) Hypomagnesemia: Start date: 05/26/19 Start time: 14:51 Status: Acute Assessment and plan: Resolved. 2.0 by am labs. Continue to monitor. 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 Placed on 11/2018. Would like it reversed. In setting of fever today, CT abd/pelvis r/o abscess. (8) Anemia: Start date: 05/26/19 Start time: 14:52 Status: Chronic Assessment and plan: Chronic stable, alcohol dependent continue multivitamin, folic acid and thiamine. (9) DVT prophylaxis: Start date: 05/26/19 Start time: 14:52 Status: Acute Assessment and plan: Started on subcu heparin (10) Chronic hyponatremia: Start date: 05/26/19 Start time: 14:52 Status: Acute Assessment and plan: Sodium level 128 however, patient is chronically hyponatremia will monitor am labs. Above case discussed with Dr. Hearn who is in agreement Subjective Subjective Patient reports: fever Interval history since last seen: Febrile today, unknown source at this time. She does not feel bad, stating I have fevers all the time. Denies CP, SOB, n/v, ileostomy with liquid stool. Obtain CXR, u/s BLE, influenza, repeat u/a, CT abd/pelvis, no leukocytosis at this time. Exam Const General: cooperative, no acute distress and ill appearing chronically Nutritional Appearance: malnourished Orientation: alert, awake and oriented x3 HENMT Head: normocephalic and atraumatic General nose exam: external nose normal Eyes Pupils: PERRL EOM: EOM intact bilaterally Neck Neck: normal visual inspection and full ROM Thyroid: thyroid normal Lymphatic: no lymphadenopathy noted Chest Chest: normal inspection of the chest Resp Effort & Inspection: normal respiratory effort Auscultation: clear to auscultation bilaterally Cardio Jugular venous pressure: no JVD Rate: regular rate Rhythm: regular rhythm Heart Sounds: S1 normal and S2 normal GI Inspection: other (colostomy with scar line) Palpation: soft and no hepatosplenomegaly Auscultation: hyperactive bowel sounds Rectal Exam - female: deferred General: CVA tenderness Back/Spine/Pelvis Back: no CVA tenderness Thoracic/Lumbar Spine: kyphosis Neuro General: alert, awake and oriented x3 Speech: speech normal Gait: normal gait Extrem General: full ROM and no clubbing, cyanosis or edema Psych Mood: congruent mood Affect: normal affect Attitude: cooperative Objective Objective Clinical Data: Abnormal lab results 05/26/19 05/26/19 05/26/19 Range/Units 06:10 06:10 06:10 WBC 2.59 L (4.4-10.8) k/cumm RBC 2.92 L (4.00-5.20) m/cumm Hgb 10.8 L (12.0-15.5) g/dL Hct 31.5 L (36.0-46.0) % MCV 107.9 H (80-95) fL MCH 37.0 H (27.0-33.0) pg RDW 14.9 H (11.7-14.6) % Absolute Lymphocytes 0.51 L (1.2-3.4) k/cumm Sodium 128 L (136-145) mmol/L Chloride 92 L (98-107) mmol/L Creatinine 0.53 L (0.55-1.02) mg/dL Glucose 140 H D (74-106) mg/dL Lactate (0.6-1.4) mmol/L C-Reactive Protein 3.44 H (0.0-0.3) mg/dL 05/26/19 Range/Units 09:36 WBC (4.4-10.8) k/cumm RBC (4.00-5.20) m/cumm Hgb (12.0-15.5) g/dL Hct (36.0-46.0) % MCV (80-95) fL MCH (27.0-33.0) pg RDW (11.7-14.6) % Absolute Lymphocytes (1.2-3.4) k/cumm Sodium (136-145) mmol/L Chloride (98-107) mmol/L Creatinine (0.55-1.02) mg/dL Glucose (74-106) mg/dL Lactate 2.8 H* (0.6-1.4) mmol/L C-Reactive Protein (0.0-0.3) mg/dL Vital Signs Temperature 38.0 C H 05/26/19 11:28 Temperature Source Tympanic 05/26/19 11:28 Pulse 125 H 05/26/19 11:28 Pulse Rhythm Regular 05/26/19 00:57 Pulse Strength Normal 05/25/19 12:48 Respiratory Rate 20 05/26/19 11:28 Respiratory Effort Non-Labored 05/26/19 00:57 Respiratory Depth Normal 05/26/19 00:57 Respiratory Pattern Normal 05/26/19 00:57 Blood Pressure 94/58 L 05/26/19 11:28 Blood Pressure Mean 106 05/25/19 12:48 Blood Pressure Position Supine 05/25/19 12:48 Pulse Oximetry 97 05/26/19 11:28 Oxygen Delivery Method Room Air 05/26/19 11:28 Oxygen Flow Rate 0 05/26/19 11:28 Pain Level 0 05/26/19 11:28 Comment 05/25/19 20:11 Intake & Output 05/25/19 05/26/19 05/26/19 23:59 11:59 23:59 Intake Total 1000 / 1000 730 / 730 Output Total 250 / 250 Balance 1000 / 1000 480 / 480 Weight 39.3 kg Intake: IV 1000 / 1000 Oral 730 / 730 Output: Stool 250 / 250 Other: Urine Color Yellow Urine Appearance Clear Clear Comment checked patient for incontinence but patient is dry still Voiding Methods Incontinent Incontinent Laboratory Results WBC 2.59 k/cumm (4.4-10.8) L 05/26/19 06:10 RBC 2.92 m/cumm (4.00-5.20) L 05/26/19 06:10 Hgb 10.8 g/dL (12.0-15.5) L 05/26/19 06:10 Hct 31.5 % (36.0-46.0) L 05/26/19 06:10 MCV 107.9 fL (80-95) H 05/26/19 06:10 MCH 37.0 pg (27.0-33.0) H 05/26/19 06:10 MCHC 34.3 g/dL (32.0-36.0) 05/26/19 06:10 RDW 14.9 % (11.7-14.6) H 05/26/19 06:10 Plt Count 323 x1000/uL (130-400) 05/26/19 06:10 MPV 8.6 fL (8.0-11.0) 05/26/19 06:10 Immature Gran % 0.4 % 05/26/19 06:10 Neutrophils % 65.6 05/26/19 06:10 Band Neutrophils % 16.0 % 05/25/19 11:50 Lymphocytes % 19.7 05/26/19 06:10 Monocytes % 13.1 05/26/19 06:10 Eosinophils % 0.8 05/26/19 06:10 Basophils % 0.4 05/26/19 06:10 Absolute Neutrophils 1.70 k/cumm (1.2-6.7) 05/26/19 06:10 Absolute Lymphocytes 0.51 k/cumm (1.2-3.4) L 05/26/19 06:10 Absolute Monocytes 0.34 k/cumm (0.11-0.7) 05/26/19 06:10 Absolute Eosinophils 0.02 k/cumm (0.0-0.7) 05/26/19 06:10 Absolute Basophils 0.01 k/cumm (0.0-0.2) 05/26/19 06:10 Differential Comment Manual differential 05/25/19 11:50 RBC Morphology See below 05/25/19 11:50 Polychromasia Present 05/25/19 11:50 Anisocytosis 1+ 05/25/19 11:50 Macrocytosis 2+ 05/25/19 11:50 Sodium 128 mmol/L (136-145) L 05/26/19 06:10 Potassium 4.1 mmol/L (3.5-5.1) 05/26/19 06:10 Chloride 92 mmol/L (98-107) L 05/26/19 06:10 Carbon Dioxide 25.8 mmol/L (21.0-32.0) 05/26/19 06:10 Anion Gap 10.2 mmol/L (3-11) 05/26/19 06:10 BUN 8 mg/dL (7-18) 05/26/19 06:10 Creatinine 0.53 mg/dL (0.55-1.02) L 05/26/19 06:10 Estimated GFR/1.73 m2 >= 60.00 (mL/min/1.73m2) 05/26/19 06:10 Glucose 140 mg/dL (74-106) H D 05/26/19 06:10 Lactate 2.8 mmol/L (0.6-1.4) H* 05/26/19 09:36 Calcium 8.6 mg/dL (8.5-10.1) 05/26/19 06:10 Magnesium 2.0 mg/dL (1.8-2.4) 05/26/19 06:10 Total Bilirubin 0.3 mg/dL (0.2-1.0) 05/25/19 11:50 AST 101 U/L (15-37) H 05/25/19 11:50 ALT 49 U/L (14-59) 05/25/19 11:50 Alkaline Phosphatase 106 U/L (46-116) 05/25/19 11:50 Ammonia < 10 umol/L (11-32) L 05/25/19 11:50 Creatine Kinase 148 U/L (26-192) 05/25/19 11:50 Troponin I Cancelled 05/25/19 13:53 C-Reactive Protein 3.44 mg/dL (0.0-0.3) H 05/26/19 06:10 Total Protein 7.7 g/dL (6.4-8.2) 05/25/19 11:50 Albumin 3.8 g/dL (3.4-5.0) 05/25/19 11:50 Lipase 54 U/L (73-393) 05/25/19 11:50 TSH 33.80 uIU/mL (0.36-3.74) H 05/25/19 11:50 Free T4 0.87 ng/dL (0.76-1.46) 05/25/19 11:50 Urine Color Yellow (Yellow) 05/25/19 12:30 Urine Clarity Clear (Clear) 05/25/19 12:30 Urine pH 6.0 (5-8) 05/25/19 12:30 Ur Specific [place] 1.020 (1.005-1.025) 05/25/19 12:30 Urine Protein 30 mg/dL (Negative) H 05/25/19 12:30 Urine Ketones 80 mg/dL (Negative) H 05/25/19 12:30 Urine Blood Trace-lysed (Negative) H 05/25/19 12:30 Urine Nitrite Negative (Negative) 05/25/19 12:30 Urine Bilirubin Negative (Negative) 05/25/19 12:30 Urine Urobilinogen 0.2 EU/dL (Up TO 0.2) 05/25/19 12:30 Ur Leukocyte Esterase Negative (Negative) 05/25/19 12:30 Urine RBC 0-2 HPF (0-2) 05/25/19 12:30 Urine WBC 0-2 HPF (0-5) 05/25/19 12:30 Ur Epithelial Cells Moderate HPF (Negative) 05/25/19 12:30 Urine Crystals Negative HPF (Negative) 05/25/19 12:30 Urine Bacteria Rare HPF (Negative) 05/25/19 12:30 Urine Casts Negative LPF (Negative) 05/25/19 12:30 Urine Mucus Negative (Negative) 05/25/19 12:30 Ur Culture Indicated? No 05/25/19 12:30 Urine Glucose Negative mg/dL (Negative) 05/25/19 12:30 Urine Opiates Screen Negative (Negative) 05/25/19 11:25 Urine Methadone Screen Negative (Negative) 05/25/19 11:25 Ur Barbiturates Screen Negative (Negative) 05/25/19 11:25 Ur Tricyclics Screen Negative (Negative) 05/25/19 11:25 Ur Amphetamines Screen Negative (Negative) 05/25/19 11:25 U Benzodiazepines Scrn Negative (Negative) 05/25/19 11:25 Urine Cocaine Screen Negative (Negative) 05/25/19 11:25 Ur THC Screen Negative (Negative) 05/25/19 11:25 Ethyl Alcohol < 3.0 mg/dL (<3) 05/25/19 11:50
[2019-05-26] MEDS: Normal Saline 1,000 ML 75 ML IV (14:51)
[2019-05-26] MEDS: VANCOMYCIN 750 MG in Normal Saline 250 ML 166.667 MG IV (14:51)
[2019-05-26 16:43] LABS: Bilirubin Negative (Negative); Blood Negative (Negative); Clarity Clear (Clear); Glucose Negative (Negative); Ketones Negative (Negative); Leukocyte Esterase Negative (Negative); Nitrite Negative (Negative); Urobilinogen 0.2 EU/dL (Up TO 0.2)
--- NOTE | 2019-05-26 17:22 | STVN_ITS ---
Date of service: 05/26/19 Time of Service: 17:22 Speech Therapy Visit Note Note: Speech therapy consult order received this evening for clinical swallow evaluation due to nursing report of pt coughing when eating. AUDIT MANAGER consulted with nursing and referring provider, safe swallow precautions implemented while awaiting full AUDIT MANAGER assessment to include: -100% direct supervision via [facility] staff for all intake -pt must be fully upright and out of bed for all meals and snacks -DO NOT feed pt or administer medications unless pt is fully upright, awake, and alert Nursing to document intake and swallowing observations, AUDIT MANAGER will follow-up with nursing tomorrow. Charge Code: [id number] charge.
--- NOTE | 2019-05-26 17:22 | W.SPEECHNOTE ---
Date of service: 05/26/19 Time of Service: 17:22 Speech Therapy Visit Note Note: Speech therapy consult order received this evening for clinical swallow evaluation due to nursing report of pt coughing when eating. VOLUNTEER SERVICES DIRECTOR consulted with nursing and referring provider, safe swallow precautions implemented while awaiting full VOLUNTEER SERVICES DIRECTOR assessment to include: -100% direct supervision via [facility] staff for all intake -pt must be fully upright and out of bed for all meals and snacks -DO NOT feed pt or administer medications unless pt is fully upright, awake, and alert Nursing to document intake and swallowing observations, VOLUNTEER SERVICES DIRECTOR will follow-up with nursing tomorrow. Charge Code: [id number] charge.
[2019-05-26 19:59] LABS: Lactate 2.1 mmol/L (0.6-1.4)
[2019-05-27] VITALS (7 sets, daily range): BP systolic 114–146; BP diastolic 64–72; PULSE 90–106; RESP 15–19; TEMP 36.8–37.3; O2SAT 93–97
[2019-05-27] MEDS: CEFEPIME 1 GM in Normal Saline 50 ML IVPB ×2 (01:01→11:58)
[2019-05-27] MEDS: Normal Saline 1,000 ML 75 ML IV ×2 (01:19→17:49)
[2019-05-27] MEDS: VANCOMYCIN 750 MG in Normal Saline 250 ML 166.667 MG IV ×2 (01:44→19:38)
[2019-05-27] MEDS: Acetaminophen 325 MG TAB PO ×3 (05:16→19:36)
[2019-05-27] MEDS: Levothyroxine 100 MCG TAB PO (05:16)
[2019-05-27] MEDS: Heparin 5,000 UNITS/ML VIAL 5000 UNITS SC (05:29)
[2019-05-27] MEDS: Aspirin E.C. 81 MG TABEC PO (08:08)
[2019-05-27] MEDS: Thiamine 100 MG TAB PO (08:08)
[2019-05-27] MEDS: Omeprazole 20 MG CAPCR PO (08:08)
[2019-05-27] MEDS: Magnesium Oxide 400 MG TAB 800 MG PO ×2 (08:08→19:33)
[2019-05-27] MEDS: Pregabalin 25 MG CAP 75 MG PO ×2 (08:08→19:35)
[2019-05-27] MEDS: Cilostazol 100 MG TAB PO ×2 (08:09→19:35)
[2019-05-27] MEDS: Cyanocobalamin 500 MCG TAB PO (08:09)
[2019-05-27] MEDS: Multivitamin TAB 1 TAB PO (08:09)
[2019-05-27] MEDS: Folic Acid 1 MG TAB PO (08:09)
[2019-05-27] MEDS: VANCOMYCIN 750 MG in Normal Saline 250 ML 167 MG IV (09:52)
--- NOTE | 2019-05-27 10:00 | W.SPEECHPG ---
Date of service: 05/27/19 Time of Service: 10:00 Speech Therpy Note Note: SPEECH THERAPY CONTACT NOTE KILN WORKER called to check on status of pt per plan for swallow precautions and supervision implemented yesterday evening. Nsg stated that she was unaware that KILN WORKER left verbal and printed recommendations/precautions for pt last night and that pt was not supervised as a result for breakfast meal. KILN WORKER requested that staff supervise pt for intake and lunch today per written instructions in order to report performance to KILN WORKER to determine if swallow evaluation is indicated.
--- NOTE | 2019-05-27 10:00 | PNE_ITS ---
Date of service: 05/27/19 Time of Service: 10:00 Speech Therpy Note Note: SPEECH THERAPY CONTACT NOTE THIRD LOADER called to check on status of pt per plan for swallow precautions and supervision implemented yesterday evening. Nsg stated that she was unaware that THIRD LOADER left verbal and printed recommendations/precautions for pt last night and that pt was not supervised as a result for breakfast meal. THIRD LOADER requested that staff supervise pt for intake and lunch today per written instructions in order to report performance to THIRD LOADER to determine if swallow evaluation is indicated.
[2019-05-27] MEDS: diphenhydrAMINE 25 MG CAP PO (10:10)
--- NOTE | 2019-05-27 10:33 | OT.INIE ---
Occupational Therapy Notes Inpatient Occupational Therapy Evaluation Date: 05/27/19 Referring Doctor:Tiarra Cavanaugh NP OT Orders: Eval and treat Precautions: Contact/Fall PATIENT PROFILE/ADMITTING DIAGNOSIS: Pt is a 58 year old female admitted through the ER with c/o diarrhea, weakness, dehydration, failure to thrive, admitted on 05/25/2019 due to a mechanical fall. Patient states that she slid onto the floor from her chair. Patient was diagnosed with alcohol withdrawal, multiple wounds in B UE/LE, folate deficiency, and tobacco abuse. Pt states that she has been in and out of the hospital multiple times. Past Medical History: Continuous chewing tobacco dependence (Inactive 01/22/12) Hyperlipidemia (Chronic 08/21/12) Neuropathy (Chronic 12/07/16) Hyperlipidemia (Chronic 08/21/12) Foot pain, left (Chronic 12/04/16) Essential hypertension (Chronic 01/22/12) Arterial occlusive disease (Chronic 12/04/16) Hypothyroidism (Chronic) Social History/Home Situation: Pt lives alone in an apartment at her baseline. She states that she does not use any devices for functional mobility. At Baseline pts ADLs are performed at the following level of function- Eating-(I) Grocery Shopping- Shops when she needs to, however states that she freezes all of her food and just eats it over the months. She states that she very rarely goes to get food. Cooking- Microwave Sleeping-(I) Dressing- (I) UE, requires increased time with LE Bathing- Only has a bathtub no shower. She states its an old claw foot tub and she does this (I). But pt admits that she could get into the tub but she cannot get out and she is unable to perform her bathing in the tub at this time. Driving- Does not drive, states she walks everywhere Work- Previously worked at [employer] in [place] 3rd shift. Has had multiple dramatic experiences in the work place. She has not returned to her work demands since last admission to [facility]. Support- Pt states that she has very limited social support/family or friends. Pets- A cat Equipment owned/DME: Cane, grab bars SUBJECTIVE: Pt was sitting in bed when OT arrived. She reports that she is frustrated with how much she has been in the hospital. She notes that she would like to return to work but has been in and out of the hospital multiple times. OBJECTIVE: General Observation: IVx2 (R) UE, telemetry, pt is able to answer questions appropriately. Mental Status: A&Ox2 Pain: c/o pain in whole body and pt does not specify where. Strength: RUE Shoulder flexion 4-/5, elbow 3-/5, supervisor vendor quality 3+/5 L UE Shoulder flexion 4-/5, elbow 3+/5, supervisor vendor quality 3+/5 ROM: RUE AROM WNL LUE AROM WNL FUNCTIONAL MOBILITY/ADLS: Transfers Supine-sit (I) Sit-supine (I) BATHING Pt denies. She reports that she is not dirty. DRESSING Dressing UE NT Dressing LE mod (A) don and doff (B) socks, pt has decreased bend at the hips and notes that she is too tired. GROOMING Pt denies. TOILETING pt denies BALANCE: Static sitting Normal Dynamic Sitting Good INFORMED CONSENT/EDUCATION: Pt instructed in purpose of OT Consult and plan of care. ASSESSMENT: Patient is a 58-year-old female referred to occupational therapy services with diagnosis of complaints of diarrhea, weakness, dehydration, failure to thrive admitted on 05/25/2019 due to a mechanical fall. Patient presents with clinical signs and symptoms consistent with dx, as demonstrated by the following impairment level findings: decreased functional activity tolerance, decreased functional mobility, decreased safety awareness, pain in (B) feet and UE. Impairments are contributing to the following functional limitations: Unable to perform safe functional mobility, decreased functional activity tolerance, unable to perform ADLs safely in her home set up, decreased supports for ability to thrive in home environment, decreased ability to perform LE dressing and bathing routines. Patient is assessed as a Moderate 27191 complexity based on the following: History: See Above Examination: See Above Presentation: Evolving Decision Making: Moderate complexity based on examination GOALS Goals x1 week 1. Transfers FWW (I) 2. Dressing (I) in sitting position with ideal technique 3. Bathing (I) standing at sink for (B) UE, face and abdomen 4. Toileting (I) on toilet 5. Eating (I) 6. Pt will be able to stand at sink with FWW to brush her teeth and hair (I). PLAN OF CARE/TREATMENT PLAN: 1x/day, 5 days/ week x 1week Initiate Occupational Therapy Services for bathing, dressing, grooming, toileting, eating, transfer training. DISCHARGE RECOMMENDATIONS Based on pts current functional status, OT recommends SNF due to pts decreased safety awareness and generalized weakness affecting her ADLs/IADLs. TREATMENT TIME/MINUTES/CODES 49175,[id number] 25 minutes (09:40) Jane Gomez OTR/L [facility]
[2019-05-27 12:03] LABS: Lactate 1.2 mmol/L (0.6-1.4)
[2019-05-27 12:10] LABS: Abs Immature Grans 0.01 k/cumm (0.0-0.09); Absolute Basophil Count 0.01 k/cumm (0.0-0.2); Absolute Eosinophil Count 0.04 k/cumm (0.0-0.7); Absolute Lymphocyte Count 0.74 k/cumm (1.2-3.4); Absolute Monocyte Count 0.31 k/cumm (0.11-0.7); Absolute Neutrophil Count 1.82 k/cumm (1.2-6.7); Basophils % 0.3; Eosinophils % 1.4; HCT 26.5 % (36.0-46.0); HGB 8.8 g/dL (12.0-15.5); Immature Grans % 0.3 %; Lymphocytes % 25.3; Mean Corp. HGB Concentration 33.2 g/dL (32.0-36.0); Mean Corpuscular Hemoglobin 36.8 pg (27.0-33.0); Mean Corpuscular Volume 110.9 fL (80-95); Mean Platelet Volume 8.8 fL (8.0-11.0); Monocytes % 10.6; Neutrophils % 62.1; Platelet Count 277 x1000/uL (130-400); RBC 2.39 m/cumm (4.00-5.20); RBC Distribution Width 15.2 % (11.7-14.6); White Blood Cell Count 2.93 k/cumm (4.4-10.8)
[2019-05-27 12:17] LABS: BUN 8 mg/dL (7-18); CREATININE 0.46 mg/dL (0.55-1.02); Calcium 8.1 mg/dL (8.5-10.1); Chloride 102 mmol/L (98-107); Glucose 101 mg/dL (74-106); Magnesium 1.4 mg/dL (1.8-2.4); Potassium 3.7 mmol/L (3.5-5.1); Sodium 135 mmol/L (136-145)
[2019-05-27 12:41] LABS: Procalcitonin 0.1 ng/mL
[2019-05-27 13:01] LABS: Anisocytosis 1+; Diff Comment Diff Reviewed; Hypochromasia 2+; Macrocytosis 2+; Polychromasia Present
[2019-05-27 13:02] LABS: Poikilocytes 2+
--- NOTE | 2019-05-27 14:50 | CHAPLAIN ---
Kayla was sitting up in bed when I visited. She said she appreciated the company and went on to talk about a number of things. Sometime she would ramble on, other times she stayed on topic. She is worried about getting her apartment unlocked and was upset that it had been locked. She spoke about her three latest landlords, friends who said it was too far to visit her in the hospital and places she's lived over the years. Kayla seemed appreciated of a listening ear.
--- NOTE | 2019-05-27 15:02 | PCNE_ITS ---
Date of service: 05/27/19 Time of Service: 14:02 History of Present Illness History of Present Illness Chief Complaint: weakness, inability to care for self, alcoholism Narrative: Kayla is a 58 yo chronic alcoholic who lives by herself. She came in covered in feces, confused, with a fever. She is leukopenic and anemic. She is a very poor historian, with evidence of Wernecke-Korsakoff syndrome. She confabulates. She is very weak, with left foot pain of uncertain etiology. She is on the [facility] protocol and has complained about the need to take all the vitamin pills it requires. She pulled off her telemetry. She tells me today that she knows she is too weak to go home, that she needs to get stronger, and that she is willing to go to the [facility] (if they will have her) or to [facility] and . She gets offended (as she always does) when I ask her to quantify her drinking. Consults Consult date: 05/27/19 Requesting physician: Veronika De Los Santos Assessment and Plan Assessment and plan (1) Alcohol dependence: Status: Chronic Assessment and plan: Will not admit or discuss. Admits to drinking beer daily. DOesn't see it as a problem. Note that she had normal (<3) alcohol levels on her last 3 admissions. Last time she had alcohol in her blood was November. Says she has cut back. Is on [facility] protocol. Discussed difficulty women have metabolizing alcohol as they get older. Not interested in any discussion of her drinking. (2) CRPS 1, lower extremity: Status: Acute Assessment and plan: Severe unexplained pain. Given her frequent falls, could easily fit this category. Dr Sow has seen her; no intervention warranted. Says her foot pain keeps her from walking any distance. Given her overall frailty and living alone, not a great candidate for narcotics. (3) Wernicke-Korsakoff syndrome: Status: Chronic Assessment and plan: Makes it hard to take a reliable history from her. Confabulates. Poor sense of reality. ? competent to make medical decisions? (4) Failure to thrive: Status: Acute Assessment and plan: BMI is severely underweight. ENcouraged her to ask for food if she is hungry. Review of Systems Constitutional Constitutional: Reports body ache(s), Reports difficulty sleeping, Reports fever(s), Reports frequent falls, Reports poor appetite, Reports weakness and Reports weight loss Eyes Eyes: Reports dry eyes, Reports itchy eyes and Reports requires corrective lenses ENT Ears, Nose, Mouth, and Throat: Reports dizziness, Reports dry mouth, Reports hoarseness and Reports disequilibrium Cardiovascular Cardiovascular: Reports rapid heart rate, Reports palpitations and Reports dyspnea on exertion Respiratory Respiratory: Reports dyspnea on exertion Gastrointestinal Gastrointestinal: Reports abdominal pain, Reports early satiety, Reports dyspepsia, Reports heartburn and Reports other (has ileostomy in place; was leaking at home) Genitourinary Genitourinary: Reports urinary incontinence Musculoskeletal Musculoskeletal: Reports abnormal gait, Reports myalgias, Reports atrophy, Reports arthralgias, Reports muscle cramps, Reports muscle weakness, Reports numbness, Reports stiffness and Reports tingling Integumentary/Breasts Skin/Breast: Reports dry skin and Reports pruritus Neurologic Neurologic: Reports abnormal gait, Reports confusion, Reports dizziness, Reports frequent falls, Reports memory loss, Reports numbness, Reports tingling, Reports disequilibrium and Reports weakness Psychiatric Psychiatric: Reports abnormal sleep pattern, Reports change in appetite, Reports confusion, Reports difficulty concentrating, Reports irritability, Reports memory loss, Reports mood swings and Reports paranoia Endocrine Endocrine: Reports palpitations Hematologic/Lymphatic Hematologic/Lymphatic: Reports easy bruising Allergic/Immunologic Allergic/Immunologic: Reports itchy eyes [facility] Medical History Alcohol dependence (Chronic) drinking beer during visit; many empties around Arterial occlusive disease (Chronic Unknown) [place] [facility] [place] [facility] [place] 11/30/16--bilateral & moderate Continuous chewing tobacco dependence (Inactive 01/22/12) COPD (chronic obstructive pulmonary disease) (Suspected) not proven, requires outpatient PFTs CRPS 1, lower extremity (Acute) possible diagnosis Essential hypertension (Chronic 01/22/12) Foot pain, left (Chronic 12/04/16) Neuropathic vs. claudication Hyperlipidemia (Chronic 08/21/12) Hyperlipidemia (Chronic 08/21/12) Hypothyroidism (Chronic) Neuropathy (Chronic 12/07/16) left foot Palliative care patient (Acute) Unstable gait (Acute) walks with a walker antalgic gait Wernicke-Korsakoff syndrome (Acute) Surgical History S/P colectomy (Acute 12/26/18) lap converted to open sigmoid colectomy w/ primary stapled anastomosis and diverting loop ileostomy Family History Son Parent-child estrangement nec Father , in his 90s of old age No problems noted. Mother , in her 30s, murdered Murder Brother , age 50 Assault by being hit or run over by motor vehicle, sequela Social History Smoking/Tobacco Use Status: Current every day Tobacco Type: cigarettes Quit status: not considering quitting Counseling given: counseling >3 minutes Alcohol Intake: current Alcohol Intake frequency: 3 or more drinks per day Alcohol type: beer and hard liquor Counseling given: Yes Counseling provided: reduce to 2 or less/day Drug use: Never Substance use type: does not use Caregiver/Support person: No Household members: none Housing: apartment Number of Children: 1 Communication Needs: Corrective Lenses Education Level: high school Do you need help understanding health information?: Always current occupation: not working at this time Pets and animals: Yes (Mr Joel Sharp) Pets and animals: cat(s) What is your relationship status?: never How often do you talk on the phone with friends or family?: twice per week Panel score (0-1 are the most socially isolated patients): 0 What type of physical activity do you participate in: none Special carlie needs: No Agree to transfusion: Yes Seatbelt use: always Drive intox or ride w/intox 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 Has not been back to work since then. Twice has been found down, with elevated etoh level, covered in feces. Wants to return to work. No longer receiving health benefits from [employer]. Thinks she can go back second shift if I want. Unrealistic. Exam Const General: no acute distress, disheveled, frail appearing and ill appearing Nutritional Appearance: cachectic and malnourished Orientation: alert, awake and oriented to person HENMT Head: normocephalic and atraumatic Ears: hearing grossly normal bilaterally General nose exam: external nose normal Face and sinus: normal facial exam, face symmetric and dry mucous membranes Eyes Conjunctivae: conjunctivae normal Sclera: sclerae normal Neck Neck: no lymphadenopathy and no JVD Resp Effort & Inspection: normal respiratory effort and able to speak in complete sentences Auscultation: clear to auscultation bilaterally and diminished lung sounds Cardio Jugular venous pressure: no JVD Rate: regular rate Rhythm: regular rhythm Heart Sounds: S1 normal and S2 normal GI Inspection: scaphoid and other (ileostomy bag present) Palpation: firm and tender Auscultation: normal bowel sounds Skin General skin exam: dry skin, ecchymosis and pallor Hair: general thinning Nails: clubbing Neuro General: alert and awake Cognition: abnormal cognition Speech: abnormal speech Gait: other (did not get her out of bed; requires significant assistance) Extrem General: muscle atrophy Left lower extremity: ankle Details: tenderness and foot Details: tenderness Psych Appearance: disheveled Speech and Movement: speech clear and slowed movement Mood: anxious mood and irritable mood (once I asked her about her liver, she grew irritated) Affect: hostile (on the topic of alcohol), dysphoric affect and irritable affect Attitude: guarded Thought Process: confabulating, illogical, impoverished, loose association and tangential Thought Content: delusions Insight: poor Judgment: poor Other: Her sense of reality is quite skewed, yet she does recognize her need to have assistance before going home. Not sure if she is competent to make decisions; would benefit from competency evaluation, especially if she changes her mind and resists going to SNF. UNSAFE at home. . Results Last Vital Signs Temp 99.0 F 05/27/19 08:00 Pulse 93 H 05/27/19 14:19 Resp 19 05/27/19 08:00 BP 146/72 H 05/27/19 08:00 Pulse Ox 95 05/27/19 08:00 Labs Result diagrams: 05/27/19 11:55 05/27/19 11:55 Labs: Laboratory Results - last 24 hr 05/26/19 05/26/19 05/27/19 16:15 19:15 11:55 WBC 2.93 L RBC 2.39 L Hgb 8.8 L Hct 26.5 L MCV 110.9 H MCH 36.8 H MCHC 33.2 RDW 15.2 H Plt Count 277 MPV 8.8 Immature Gran % 0.3 Neutrophils % 62.1 Lymphocytes % 25.3 Monocytes % 10.6 Eosinophils % 1.4 Basophils % 0.3 Absolute Neutrophils 1.82 Absolute Lymphocytes 0.74 L Absolute Monocytes 0.31 Absolute Eosinophils 0.04 Absolute Basophils 0.01 Differential Comment Diff reviewed RBC Morphology See below Polychromasia Present Hypochromasia 2+ Poikilocytosis 2+ Anisocytosis 1+ Macrocytosis 2+ Sodium Potassium Chloride Carbon Dioxide Anion Gap BUN Creatinine Estimated GFR/1.73 m2 Glucose Lactate 2.1 H* Calcium Magnesium Procalcitonin Urine Color Yellow Urine Clarity Clear Urine pH 7.0 Ur Specific [place] 1.010 Urine Protein Negative Urine Ketones Negative Urine Blood Negative Urine Nitrite Negative Urine Bilirubin Negative Urine Urobilinogen 0.2 Ur Leukocyte Esterase Negative Urine Glucose Negative 05/27/19 05/27/19 11:55 11:55 WBC RBC Hgb Hct MCV MCH MCHC RDW Plt Count MPV Immature Gran % Neutrophils % Lymphocytes % Monocytes % Eosinophils % Basophils % Absolute Neutrophils Absolute Lymphocytes Absolute Monocytes Absolute Eosinophils Absolute Basophils Differential Comment RBC Morphology Polychromasia Hypochromasia Poikilocytosis Anisocytosis Macrocytosis Sodium 135 L Potassium 3.7 Chloride 102 Carbon Dioxide 26.0 Anion Gap 7.0 BUN 8 Creatinine 0.46 L Estimated GFR/1.73 m2 >= 60.00 Glucose 101 Lactate 1.2 Calcium 8.1 L Magnesium 1.4 L Procalcitonin 0.1 Urine Color Urine Clarity Urine pH Ur Specific [place] Urine Protein Urine Ketones Urine Blood Urine Nitrite Urine Bilirubin Urine Urobilinogen Ur Leukocyte Esterase Urine Glucose
--- NOTE | 2019-05-27 15:55 | PT.INTREAT ---
Date of service: 05/27/19 Time of Service: 15:55 PT Notes Visit Reasons: FAILURE TO THRIVE, WEAKNESS Inpatient Physical Therapy Treatment Note [facility] Date: 05/27/2019 PRECAUTIONS: Fall SUBJECTIVE: Kayla is agreeable to participate in PT. OBJECTIVE: PAIN: Patient c/o general pain, but is non-specific about it's location. BED MOBILITY/TRANSFERS Supine-sit: I Sit-supine: I Sit-stand: CGA Stand-sit: CGA GAIT Assistive Device: FWW Weight bearing: Full Assist: CGA Distance: 175' Deviation: Standing rest x1, patient reports feeling faint x1 removing U UE from FWW Static standing x5 minutes with CGA and no UE support. ASSESSMENT: Patient tolerated session with complaint of pain in a non-specific area. She was able to tolerate a progression in gait distance with FWW support and CGA. PLAN: Continue with PT's POC TREATMENT CODE/TIME: 40 minutes; 76870 x3
--- NOTE | 2019-05-27 16:07 | PGE_ITS ---
Documented by User: Veronika De Los Santos NP 05/27/19 17:06 Date of Service Date of service: 05/27/19 Time of Service: 12:00 Assessment and Plan Assessment and plan (1) Sepsis: Status: Acute Assessment and plan: source likely respiratory. has stablilized. max temp overnight 37.3 and has been hemodynamically stable. procalcitonin level and lactic acid normal ranges. cultures still pending. on day 2 vanco and cefepime. (2) Hypothyroidism: Status: Chronic Assessment and plan: TSH 33.8 on admission, which is improved since a high of 140 in february 2019 and 59 in april 2019, will continue oral synthroid. (3) Anemia: Status: Chronic Assessment and plan: stool was negative for OB. likely multifactorial with some dilution. will monitor closely, add labs/iron studies. (4) Palliative care patient: Status: Acute Assessment and plan: seen by Dr Yusuf, please see note. (5) Chronic hyponatremia: Status: Acute Assessment and plan: stable and improved to , continue to monitor (6) Alcohol dependence: Status: Chronic Assessment and plan: CIWA max overnight is 4. will continue thiamine and folic acid and monitor. (7) DVT prophylaxis: Status: Acute Assessment and plan: continue heparin (8) Discharge planning issues: Status: Acute Assessment and plan: case management following, will likely need placement at discharge or rehab prior to going home. Subjective Subjective Patient reports: still having pain and other Interval history since last seen: patient reports depression and chronic pain. she is non specific about her depression stating that I don't feel right physically, mentally and emotionally. she has chronic c/o left foot pain which has been evaluated. she is on lyrica. hemodynamically she has been stable. she has been having behavioral issues, not complying with treatment and recommendations. she underwent a palliative care consult today. she has a dry cough and sepsis is likely d/t pneumonia which was seen on CT scan. her respiratory status is stable and she oxygenating well on room air. Exam Const General: no acute distress, frail appearing and ill appearing (much older appearing than stated age) chronically Nutritional Appearance: thin Orientation: alert, awake, oriented x3 and other (patient is poor historian and does not stay on conversation, focus scattere) Limitations: behavioral limitations (not cooperative) [facility] Head: normal to inspection, normocephalic and atraumatic Mouth: moist mucous membranes Resp Effort & Inspection: normal respiratory effort and able to speak in complete sentences Auscultation: clear to auscultation bilaterally Cardio Rate: regular rate Rhythm: regular rhythm GI Inspection: incision (old midline incision healed, stoma patent to right lower quad, soft brown) Palpation: soft Auscultation: normal bowel sounds Skin General skin exam: no rashes or lesions noted Extrem General: normal to inspection, full ROM and no pedal edema Psych Appearance: disheveled Mental Status: other Speech and Movement: agitated Mood: labile mood and other Affect: blunted Attitude: other (not fully cooperative) Thought Process: perseverating Insight: poor Judgment: poor Objective Objective Clinical Data: Abnormal lab results 05/26/19 05/27/19 05/27/19 Range/Units 19:15 11:55 11:55 WBC 2.93 L (4.4-10.8) k/cumm RBC 2.39 L (4.00-5.20) m/cumm Hgb 8.8 L (12.0-15.5) g/dL Hct 26.5 L (36.0-46.0) % MCV 110.9 H (80-95) fL MCH 36.8 H (27.0-33.0) pg RDW 15.2 H (11.7-14.6) % Absolute Lymphocytes 0.74 L (1.2-3.4) k/cumm Sodium 135 L (136-145) mmol/L Creatinine 0.46 L (0.55-1.02) mg/dL Lactate 2.1 H* (0.6-1.4) mmol/L Calcium 8.1 L (8.5-10.1) mg/dL Magnesium 1.4 L (1.8-2.4) mg/dL Vital Signs Temperature 37 C 05/27/19 15:30 Temperature Source Tympanic 05/27/19 15:30 Pulse 90 05/27/19 15:30 Pulse Rhythm Regular 05/27/19 09:10 Pulse Strength Normal 05/25/19 12:48 Respiratory Rate 19 05/27/19 15:30 Respiratory Effort Non-Labored 05/27/19 09:10 Respiratory Depth Normal 05/27/19 09:10 Respiratory Pattern Normal 05/27/19 09:10 Blood Pressure 140/64 05/27/19 15:30 Blood Pressure Mean 106 05/25/19 12:48 Blood Pressure Position Supine 05/25/19 12:48 Pulse Oximetry 95 05/27/19 15:30 Oxygen Delivery Method Room Air 05/27/19 15:30 Oxygen Flow Rate 0 05/27/19 15:30 Pain Level 0 05/27/19 15:30 Comment 05/26/19 18:50 Intake & Output 05/26/19 05/27/19 05/27/19 23:59 11:59 23:59 Intake Total 908.333 / 1471.869 5965 / 3575 50 / 3575 Output Total 450 / 700 100 / 100 Balance 458.333 / 069.536 9183 / 3475 -50 / 3475 Intake: IV 788.333 / 938.940 9677 / 3335 50 / 3335 Oral 120 / 850 240 / 240 Output: Urine 200 / 200 Stool 250 / 500 100 / 100 Other: Urine Color Yellow Urine Appearance Clear Clear Urine Odor Normal Comment frequent incontinence. pad and bed soaked incontinent Stool Occult Blood Negative Voiding Methods Incontinent Incontinent Incontinent Laboratory Results WBC 2.93 k/cumm (4.4-10.8) L 05/27/19 11:55 RBC 2.39 m/cumm (4.00-5.20) L 05/27/19 11:55 Hgb 8.8 g/dL (12.0-15.5) L 05/27/19 11:55 Hct 26.5 % (36.0-46.0) L 05/27/19 11:55 MCV 110.9 fL (80-95) H 05/27/19 11:55 MCH 36.8 pg (27.0-33.0) H 05/27/19 11:55 MCHC 33.2 g/dL (32.0-36.0) 05/27/19 11:55 RDW 15.2 % (11.7-14.6) H 05/27/19 11:55 Plt Count 277 x1000/uL (130-400) 05/27/19 11:55 MPV 8.8 fL (8.0-11.0) 05/27/19 11:55 Immature Gran % 0.3 % 05/27/19 11:55 Neutrophils % 62.1 05/27/19 11:55 Band Neutrophils % 16.0 % 05/25/19 11:50 Lymphocytes % 25.3 05/27/19 11:55 Monocytes % 10.6 05/27/19 11:55 Eosinophils % 1.4 05/27/19 11:55 Basophils % 0.3 05/27/19 11:55 Absolute Neutrophils 1.82 k/cumm (1.2-6.7) 05/27/19 11:55 Absolute Lymphocytes 0.74 k/cumm (1.2-3.4) L 05/27/19 11:55 Absolute Monocytes 0.31 k/cumm (0.11-0.7) 05/27/19 11:55 Absolute Eosinophils 0.04 k/cumm (0.0-0.7) 05/27/19 11:55 Absolute Basophils 0.01 k/cumm (0.0-0.2) 05/27/19 11:55 Differential Comment Diff reviewed 05/27/19 11:55 RBC Morphology See below 05/27/19 11:55 Polychromasia Present 05/27/19 11:55 Hypochromasia 2+ 05/27/19 11:55 Poikilocytosis 2+ 05/27/19 11:55 Anisocytosis 1+ 05/27/19 11:55 Macrocytosis 2+ 05/27/19 11:55 Sodium 135 mmol/L (136-145) L 05/27/19 11:55 Potassium 3.7 mmol/L (3.5-5.1) 05/27/19 11:55 Chloride 102 mmol/L (98-107) 05/27/19 11:55 Carbon Dioxide 26.0 mmol/L (21.0-32.0) 05/27/19 11:55 Anion Gap 7.0 mmol/L (3-11) 05/27/19 11:55 BUN 8 mg/dL (7-18) 05/27/19 11:55 Creatinine 0.46 mg/dL (0.55-1.02) L 05/27/19 11:55 Estimated GFR/1.73 m2 >= 60.00 (mL/min/1.73m2) 05/27/19 11:55 Glucose 101 mg/dL (74-106) 05/27/19 11:55 Lactate 1.2 mmol/L (0.6-1.4) 05/27/19 11:55 Calcium 8.1 mg/dL (8.5-10.1) L 05/27/19 11:55 Magnesium 1.4 mg/dL (1.8-2.4) L 05/27/19 11:55 Total Bilirubin 0.3 mg/dL (0.2-1.0) 05/25/19 11:50 AST 101 U/L (15-37) H 05/25/19 11:50 ALT 49 U/L (14-59) 05/25/19 11:50 Alkaline Phosphatase 106 U/L (46-116) 05/25/19 11:50 Ammonia < 10 umol/L (11-32) L 05/25/19 11:50 Creatine Kinase 148 U/L (26-192) 05/25/19 11:50 Troponin I Cancelled 05/25/19 13:53 C-Reactive Protein 3.44 mg/dL (0.0-0.3) H 05/26/19 06:10 Total Protein 7.7 g/dL (6.4-8.2) 05/25/19 11:50 Albumin 3.8 g/dL (3.4-5.0) 05/25/19 11:50 Lipase 54 U/L (73-393) 05/25/19 11:50 Procalcitonin 0.1 ng/mL 05/27/19 11:55 TSH 33.80 uIU/mL (0.36-3.74) H 05/25/19 11:50 Free T4 0.87 ng/dL (0.76-1.46) 05/25/19 11:50 Urine Color Yellow (Yellow) 05/26/19 16:15 Urine Clarity Clear (Clear) 05/26/19 16:15 Urine pH 7.0 (5-8) 05/26/19 16:15 Ur Specific [place] 1.010 (1.005-1.025) 05/26/19 16:15 Urine Protein Negative mg/dL (Negative) 05/26/19 16:15 Urine Ketones Negative mg/dL (Negative) 05/26/19 16:15 Urine Blood Negative (Negative) 05/26/19 16:15 Urine Nitrite Negative (Negative) 05/26/19 16:15 Urine Bilirubin Negative (Negative) 05/26/19 16:15 Urine Urobilinogen 0.2 EU/dL (Up TO 0.2) 05/26/19 16:15 Ur Leukocyte Esterase Negative (Negative) 05/26/19 16:15 Urine RBC 0-2 HPF (0-2) 05/25/19 12:30 Urine WBC 0-2 HPF (0-5) 05/25/19 12:30 Ur Epithelial Cells Moderate HPF (Negative) 05/25/19 12:30 Urine Crystals Negative HPF (Negative) 05/25/19 12:30 Urine Bacteria Rare HPF (Negative) 05/25/19 12:30 Urine Casts Negative LPF (Negative) 05/25/19 12:30 Urine Mucus Negative (Negative) 05/25/19 12:30 Ur Culture Indicated? No 05/25/19 12:30 Urine Glucose Negative mg/dL (Negative) 05/26/19 16:15 Urine Opiates Screen Negative (Negative) 05/25/19 11:25 Urine Methadone Screen Negative (Negative) 05/25/19 11:25 Ur Barbiturates Screen Negative (Negative) 05/25/19 11:25 Ur Tricyclics Screen Negative (Negative) 05/25/19 11:25 Ur Amphetamines Screen Negative (Negative) 05/25/19 11:25 U Benzodiazepines Scrn Negative (Negative) 05/25/19 11:25 Urine Cocaine Screen Negative (Negative) 05/25/19 11:25 Ur THC Screen Negative (Negative) 05/25/19 11:25 Ethyl Alcohol < 3.0 mg/dL (<3) 05/25/19 11:50 Documented by User: Jorge A Hylton 05/30/19 16:51
--- NOTE | 2019-05-27 17:05 | PDOC.CMPRO ---
- If Service Date Differs Date of service: 05/27/19 Time of Service: 17:05 Care Management Progress Note S/O: Kayla is lying in bed watching television when CM comes to meet with her. Kayla met with Dr. Yusuf for a palliative care consult earlier today. She states her left foot is not right and she knows she cannot return home until her foot is better. She is agreeable to going to rehab for a period of time and her preference would be the [facility] as she formerly worked there as an [employer] B[employer] WORK[employer]. CM will continue to follow. A: Kayla is a 58 year old female admitted to [facility] on 05/26/2019 for failure to thrive and weakness. P: CM will coordinate referral to the [facility] and will continue to support patient and discharge planning needs.
[2019-05-27] MEDS: Calcium Carbonate *TUMS* 500 MG CHEW PO (19:37)
[2019-05-28] MEDS: CEFEPIME 1 GM in Normal Saline 50 ML IVPB ×2 (00:36→11:46)
[2019-05-28 05:00] LABS: Vancomycin, Trough 18.2 ug/mL (10.0-20.0)
[2019-05-28 05:22] VITALS: BP 158/85; PULSE 101; RESP 20; TEMP 37.2; O2SAT 91
[2019-05-28 05:28] LABS: Abs Immature Grans 0.01 k/cumm (0.0-0.09); Absolute Basophil Count 0.02 k/cumm (0.0-0.2); Absolute Eosinophil Count 0.08 k/cumm (0.0-0.7); Absolute Lymphocyte Count 0.89 k/cumm (1.2-3.4); Absolute Monocyte Count 0.42 k/cumm (0.11-0.7); Absolute Neutrophil Count 2.07 k/cumm (1.2-6.7); Basophils % 0.6; Eosinophils % 2.3; HCT 28.1 % (36.0-46.0); HGB 9.2 g/dL (12.0-15.5); Immature Grans % 0.3 %; Lymphocytes % 25.5; Mean Corp. HGB Concentration 32.7 g/dL (32.0-36.0); Mean Corpuscular Hemoglobin 36.5 pg (27.0-33.0); Mean Corpuscular Volume 111.5 fL (80-95); Mean Platelet Volume 9.1 fL (8.0-11.0); Neutrophils % 59.3; Platelet Count 277 x1000/uL (130-400); RBC 2.52 m/cumm (4.00-5.20); RBC Distribution Width 15.1 % (11.7-14.6); Reticulocyte 1.6 % (0.5-2.4); White Blood Cell Count 3.49 k/cumm (4.4-10.8)
[2019-05-28 05:46] LABS: Iron 68 ug/dL (50-170); Total Iron Binding Capacity 194 ug/dL (250-450); Transferrin Sat 35 % (15-50)
[2019-05-28 05:59] LABS: Anion Gap 5.8 mmol/L (3-11); BUN 6 mg/dL (7-18); CO2 28.2 mmol/L (21.0-32.0); CREATININE 0.52 mg/dL (0.55-1.02); Chloride 100 mmol/L (98-107); Ferritin 802 ng/mL (8-252); Glucose 90 mg/dL (74-106); Magnesium 1.1 mg/dL (1.8-2.4); Potassium 3.8 mmol/L (3.5-5.1); Sodium 134 mmol/L (136-145)
[2019-05-28 06:11] LABS: Folate 15.5 ng/mL (8.6-20.0); Vitamin B12 584 pg/mL (193-986)
[2019-05-28] MEDS: Levothyroxine 100 MCG TAB PO (06:37)
[2019-05-28 07:45] VITALS: BP 160/77; PULSE 97; RESP 20; TEMP 37; O2SAT 92
[2019-05-28] MEDS: Normal Saline 1,000 ML 75 ML IV (08:51)
[2019-05-28] MEDS: Acetaminophen 325 MG TAB PO ×2 (08:56→20:16)
[2019-05-28] MEDS: Cilostazol 100 MG TAB PO ×2 (08:57→20:14)
[2019-05-28] MEDS: Aspirin E.C. 81 MG TABEC PO (08:58)
[2019-05-28] MEDS: Pregabalin 25 MG CAP 75 MG PO ×2 (08:59→20:15)
[2019-05-28] MEDS: Cyanocobalamin 500 MCG TAB PO (09:00)
[2019-05-28] MEDS: Magnesium Oxide 400 MG TAB 800 MG PO (09:00)
[2019-05-28] MEDS: Omeprazole 20 MG CAPCR PO (09:00)
[2019-05-28] MEDS: Thiamine 100 MG TAB PO (09:00)
[2019-05-28] MEDS: Folic Acid 1 MG TAB PO (09:06)
[2019-05-28] MEDS: VANCOMYCIN 750 MG in Normal Saline 250 ML 167 MG IV (09:10)
[2019-05-28 10:18] VITALS: O2SAT 93
[2019-05-28] MEDS: Normal Saline Flush 10 ML SYR IVP (10:23)
[2019-05-28] MEDS: Heparin 5,000 UNITS/ML VIAL 5000 UNITS SC ×2 (10:23→18:25)
--- NOTE | 2019-05-28 10:26 | PDOC.CMPRO ---
- If Service Date Differs Date of service: 05/28/19 Time of Service: 10:26 Care Management Progress Note S/O: A: Kayla is a 58 year old female admitted to [facility] on 05/26/2019 for failure to thrive and weakness. P: CM will coordinate referral to the [facility] and will continue to support patient and discharge planning needs. cc:
--- NOTE | 2019-05-28 10:34 | OTTR_ITS ---
Date of service: 05/28/19 Time of Service: 09:30 Occupational Therapy Notes Occupational Therapy Inpatient Treatment Note Date: 05/28/19 PRECAUTIONS: Fall, Standard SUBJECTIVE: Pt was sitting in bed when OT arrived. She was agreeable to OT session but states that she wants everything explained to her so that she knows what is happening. OBJECTIVE: PAIN: no c/o pain FUNCTIONAL MOBILITY Rolling L/R: (S) Supine-sit: (S) Sit-supine: (S) Sit-stand: (S) Stand-sit: (S) Bed-Commode: (S) BATHING: Sitting on side of the bed Upper Body: (I) with min vc Lower Body: Min (A) with min vc DRESSING: Sitting on side of bed Upper Extremity: Min (A) don and doffing [facility] gown Lower Extremity: (I) don and doffing (B) socks. PLAN: Continue to progress pt towards goals established at initial evaluation. TREATMENT CODES/TIME: [id number], 30 minutes (09:30) YUN[facility]
--- NOTE | 2019-05-28 15:12 | PGE_ITS ---
Date of Service Date of service: 05/28/19 Time of Service: 15:12 Assessment and Plan Assessment and plan (1) Sepsis: Status: Acute Assessment and plan: day 3 cefepime and vanco. respiratory status is stable. no fevers, white count remains low. will downstep to oral antibiotics, preference would have been augmentin but with pcn allergy will complete course with vantin. monitor closely for deterioration after down step. would consider clindamycin to broaden coverage for MRSA or aspiration but do not anticipate. blood cultures are negative to date. (2) Hypomagnesemia: Status: Acute Assessment and plan: will replete with IV magnesium, check level in am. is having some loose stools but no overt diarrhea. will add fiber if needed, or check for cdiff. (3) Alcohol dependence: Status: Chronic Assessment and plan: no signs of withdrawal, continue to monitor and continue thiamine and folic acid (4) Hypothyroidism: Status: Chronic Assessment and plan: TSH 33.8 on admission, which is improved since a high of 140 in february 2019 and 59 in april 2019, will continue oral synthroid. (5) Anemia: Status: Chronic Assessment and plan: drop from admission likely dilution. will continue to monitor, no need for transfusion at this time. (6) DVT prophylaxis: Status: Acute Assessment and plan: continue heparin (7) Discharge planning issues: Status: Acute Assessment and plan: case management following. patient underwent palliative care consult. is agreeable to [facility] for rehab when medically stable. referral placed. will discharge tomorrow if medically stable. if no bed available will discharge to swing level care here until bed becomes open. Subjective Subjective Patient reports: no new complaints and feels better Interval history since last seen: no new c/o. is eating and drinking and working with physical therapy. she has had no fevers and is hemodynamically stable. she has had no signs of withdrawal. Exam Const General: no acute distress, well developed and ill appearing chronically (older appearing than stated age) Nutritional Appearance: thin Orientation: alert, awake and oriented x3 Resp Effort & Inspection: normal respiratory effort, able to speak in complete senten nunu and abnormal respiratory pattern Auscultation: clear to auscultation bilaterally Cardio Rate: regular rate Rhythm: regular rhythm GI Inspection: scar (old mid line, healed) and other (ileostomy bag intact, patent with brown stool) Palpation: soft Auscultation: normal bowel sounds Skin General skin exam: no rashes or lesions noted Neuro General: alert, awake and oriented x3 Extrem General: normal to inspection, full ROM and no pedal edema Objective Objective Clinical Data: Abnormal lab results 05/28/19 05/28/19 05/28/19 Range/Units 04:45 04:45 04:45 WBC 3.49 L (4.4-10.8) k/cumm RBC 2.52 L (4.00-5.20) m/cumm Hgb 9.2 L (12.0-15.5) g/dL Hct 28.1 L (36.0-46.0) % MCV 111.5 H (80-95) fL MCH 36.5 H (27.0-33.0) pg RDW 15.1 H (11.7-14.6) % Absolute Lymphocytes 0.89 L (1.2-3.4) k/cumm Sodium 134 L (136-145) mmol/L BUN 6 L (7-18) mg/dL Creatinine 0.52 L (0.55-1.02) mg/dL Calcium 8.0 L (8.5-10.1) mg/dL Magnesium 1.1 L (1.8-2.4) mg/dL TIBC 194 L (250-450) ug/dL Ferritin 802 H (8-252) ng/mL Vital Signs Temperature 37 C 05/28/19 07:45 Temperature Source Tympanic 05/28/19 07:45 Pulse 97 H 05/28/19 07:45 Pulse Rhythm Regular 05/28/19 09:45 Pulse Strength Normal 05/25/19 12:48 Respiratory Rate 05/28/19 07:45 Respiratory Effort Non-Labored 05/28/19 09:45 Respiratory Depth Normal 05/28/19 09:45 Respiratory Pattern Normal 05/28/19 09:45 Blood Pressure 160/77 H 05/28/19 07:45 Blood Pressure Mean 106 05/25/19 12:48 Blood Pressure Position Supine 05/25/19 12:48 Pulse Oximetry 93 L 05/28/19 10:18 Oxygen Delivery Method Room Air 05/28/19 10:18 Oxygen Flow Rate 0 05/28/19 10:18 Pain Level 8 05/28/19 09:56 Comment 05/26/19 18:50 Intake & Output 05/27/19 05/28/19 05/28/19 23:59 11:59 23:59 Intake Total 688.75 / 4213.75 1397.5 / 2477.5 1080 / 2477.5 Output Total 550 / 550 650 / 750 100 / 750 Balance 138.75 / 3663.75 747.5 / 1727.5 980 / 1727.5 Intake: IV 508.75 / 3793.75 677.5 / 1277.5 600 / 1277.5 Oral 180 / 420 720 / 1200 480 / 1200 Output: Urine 650 / 650 Stool 550 / 550 100 / 100 Other: Urine Color Yellow Yellow Urine Appearance Clear Clear Comment pull up soaked bed was soaked and also voided incontinent Stool Occult Blood Negative Voiding Methods Incontinent Incontinent Incontinent Laboratory Results WBC 3.49 k/cumm (4.4-10.8) L 05/28/19 04:45 RBC 2.52 m/cumm (4.00-5.20) L 05/28/19 04:45 Hgb 9.2 g/dL (12.0-15.5) L 05/28/19 04:45 Hct 28.1 % (36.0-46.0) L 05/28/19 04:45 MCV 111.5 fL (80-95) H 05/28/19 04:45 MCH 36.5 pg (27.0-33.0) H 05/28/19 04:45 MCHC 32.7 g/dL (32.0-36.0) 05/28/19 04:45 RDW 15.1 % (11.7-14.6) H 05/28/19 04:45 Plt Count 277 x1000/uL (130-400) 05/28/19 04:45 MPV 9.1 fL (8.0-11.0) 05/28/19 04:45 Immature Gran % 0.3 % 05/28/19 04:45 Neutrophils % 59.3 05/28/19 04:45 Band Neutrophils % 16.0 % 05/25/19 11:50 Lymphocytes % 25.5 05/28/19 04:45 Monocytes % 12.0 05/28/19 04:45 Eosinophils % 2.3 05/28/19 04:45 Basophils % 0.6 05/28/19 04:45 Absolute Neutrophils 2.07 k/cumm (1.2-6.7) 05/28/19 04:45 Absolute Lymphocytes 0.89 k/cumm (1.2-3.4) L 05/28/19 04:45 Absolute Monocytes 0.42 k/cumm (0.11-0.7) 05/28/19 04:45 Absolute Eosinophils 0.08 k/cumm (0.0-0.7) 05/28/19 04:45 Absolute Basophils 0.02 k/cumm (0.0-0.2) 05/28/19 04:45 Differential Comment Diff reviewed 05/27/19 11:55 RBC Morphology See below 05/27/19 11:55 Polychromasia Present 05/27/19 11:55 Hypochromasia 2+ 05/27/19 11:55 Poikilocytosis 2+ 05/27/19 11:55 Anisocytosis 1+ 05/27/19 11:55 Macrocytosis 2+ 05/27/19 11:55 Retic Count 1.6 % (0.5-2.4) 05/28/19 04:45 Sodium 134 mmol/L (136-145) L 05/28/19 04:45 Potassium 3.8 mmol/L (3.5-5.1) 05/28/19 04:45 Chloride 100 mmol/L (98-107) 05/28/19 04:45 Carbon Dioxide 28.2 mmol/L (21.0-32.0) 05/28/19 04:45 Anion Gap 5.8 mmol/L (3-11) 05/28/19 04:45 BUN 6 mg/dL (7-18) L 05/28/19 04:45 Creatinine 0.52 mg/dL (0.55-1.02) L 05/28/19 04:45 Estimated GFR/1.73 m2 >= 60.00 (mL/min/1.73m2) 05/28/19 04:45 Glucose 90 mg/dL (74-106) 05/28/19 04:45 Lactate 1.2 mmol/L (0.6-1.4) 05/27/19 11:55 Calcium 8.0 mg/dL (8.5-10.1) L 05/28/19 04:45 Magnesium 1.1 mg/dL (1.8-2.4) L 05/28/19 04:45 Iron 68 ug/dL (50-170) 05/28/19 04:45 TIBC 194 ug/dL (250-450) L 05/28/19 04:45 Transferrin % Sat 35 % (15-50) 05/28/19 04:45 Ferritin 802 ng/mL (8-252) H 05/28/19 04:45 Total Bilirubin 0.3 mg/dL (0.2-1.0) 05/25/19 11:50 AST 101 U/L (15-37) H 05/25/19 11:50 ALT 49 U/L (14-59) 05/25/19 11:50 Alkaline Phosphatase 106 U/L (46-116) 05/25/19 11:50 Ammonia < 10 umol/L (11-32) L 05/25/19 11:50 Creatine Kinase 148 U/L (26-192) 05/25/19 11:50 Troponin I Cancelled 05/25/19 13:53 C-Reactive Protein 3.44 mg/dL (0.0-0.3) H 05/26/19 06:10 Total Protein 7.7 g/dL (6.4-8.2) 05/25/19 11:50 Albumin 3.8 g/dL (3.4-5.0) 05/25/19 11:50 Lipase 54 U/L (73-393) 05/25/19 11:50 Vitamin B12 584 pg/mL (193-986) 05/28/19 04:45 Folate 15.5 ng/mL (8.6-20.0) 05/28/19 04:45 Procalcitonin 0.1 ng/mL 05/27/19 11:55 TSH 33.80 uIU/mL (0.36-3.74) H 05/25/19 11:50 Free T4 0.87 ng/dL (0.76-1.46) 05/25/19 11:50 Urine Color Yellow (Yellow) 05/26/19 16:15 Urine Clarity Clear (Clear) 05/26/19 16:15 Urine pH 7.0 (5-8) 05/26/19 16:15 Ur Specific [place] 1.010 (1.005-1.025) 05/26/19 16:15 Urine Protein Negative mg/dL (Negative) 05/26/19 16:15 Urine Ketones Negative mg/dL (Negative) 05/26/19 16:15 Urine Blood Negative (Negative) 05/26/19 16:15 Urine Nitrite Negative (Negative) 05/26/19 16:15 Urine Bilirubin Negative (Negative) 05/26/19 16:15 Urine Urobilinogen 0.2 EU/dL (Up TO 0.2) 05/26/19 16:15 Ur Leukocyte Esterase Negative (Negative) 05/26/19 16:15 Urine RBC 0-2 HPF (0-2) 05/25/19 12:30 Urine WBC 0-2 HPF (0-5) 05/25/19 12:30 Ur Epithelial Cells Moderate HPF (Negative) 05/25/19 12:30 Urine Crystals Negative HPF (Negative) 05/25/19 12:30 Urine Bacteria Rare HPF (Negative) 05/25/19 12:30 Urine Casts Negative LPF (Negative) 05/25/19 12:30 Urine Mucus Negative (Negative) 05/25/19 12:30 Ur Culture Indicated? No 05/25/19 12:30 Urine Glucose Negative mg/dL (Negative) 05/26/19 16:15 Vancomycin Trough 18.2 ug/mL (10.0-20.0) 05/28/19 04:40 Urine Opiates Screen Negative (Negative) 05/25/19 11:25 Urine Methadone Screen Negative (Negative) 05/25/19 11:25 Ur Barbiturates Screen Negative (Negative) 05/25/19 11:25 Ur Tricyclics Screen Negative (Negative) 05/25/19 11:25 Ur Amphetamines Screen Negative (Negative) 05/25/19 11:25 U Benzodiazepines Scrn Negative (Negative) 05/25/19 11:25 Urine Cocaine Screen Negative (Negative) 05/25/19 11:25 Ur THC Screen Negative (Negative) 05/25/19 11:25 Ethyl Alcohol < 3.0 mg/dL (<3) 05/25/19 11:50
--- NOTE | 2019-05-28 15:25 | CHAPLAIN ---
Kayla is bed, her room darkened, when I visited. She thanks me for visiting and tells me a long rambling story that involved Shanta, her landlord and a couple of other people. She is worried about getting back into her apartment because she doesn't have a ramos. She also tell me that people are acting like they are trying to help her, but they aren't listening to what she thinks about her situation.
[2019-05-28] MEDS: MAGNESIUM SULFATE 4 GM/100 ML BAG IVPB (15:42)
--- NOTE | 2019-05-28 15:43 | PT.INTREAT ---
Date of service: 05/28/19 Time of Service: 15:43 PT Notes Visit Reasons: FAILURE TO THRIVE, WEAKNESS Inpatient Physical Therapy Treatment Note [facility] Date: 05/28/2019 PRECAUTIONS: Fall SUBJECTIVE: Kayla is agreeable to participating in PT. OBJECTIVE: PAIN: Patient c/o gluteal pain following gait training BED MOBILITY/TRANSFERS Supine-sit: I Sit-stand: CGA Stand-sit: CGA GAIT Assistive Device: FWW Weight bearing: Full Assist: CGA Distance: 300' Deviation: Standing rests throughout gait training Static standing x5 minutes with CGA and B UE support. ASSESSMENT: Patient tolerated session with complaint of pain in her gluteal area. She was able to tolerate a progression in gait distance with FWW support and CGA. PLAN: Continue with PT's POC TREATMENT CODE/TIME: 40 minutes; 58263 x3
[2019-05-28 15:45] VITALS: BP 149/82; PULSE 101; RESP 20; TEMP 37.5; O2SAT 93
--- NOTE | 2019-05-28 16:43 | CMPROGNOTE_ITS ---
- If Service Date Differs Date of service: 05/28/19 Time of Service: 16:43 Care Management Progress Note S/O: Kayla was sitting up in bed when CM met with her. She was pleasant and engaged readily with CM. Kayla talked about her plans to return to work and about her financial concerns. According to [facility], a [facility] application has been completed and was submitted on 05/21/2019. Kayla states that she has savings and that is how she is paying her rent. She was not clear where her savings came from and her speech was was tangential. Kayla continues to verbalize the desire to go to the [facility] for rehab when she leaves the hospital. A: Kayla is a 58 year old female admitted to [facility] on 05/26/2019 for failure to thrive and weakness. P: Kayla will likely benefit from SNF placement when discharged. Her plan is to go for rehab, then return home when she is stronger. CM sent a referral to [facility] at Kayla's request and is awaiting a response. CM will continue to support Kayla and her discharge planning needs.
[2019-05-28] MEDS: LORazepam 1 MG TAB PO/SL (20:14)
[2019-05-28] MEDS: Cefpodoxime 200 MG TAB PO (20:56)
[2019-05-28 20:58] VITALS: BP 172/85; PULSE 92; RESP 16; TEMP 36.9; O2SAT 95
[2019-05-28 21:42] VITALS: BP 162/86; PULSE 89
[2019-05-29] VITALS (8 sets, daily range): BP systolic 126–180; BP diastolic 74–100; PULSE 88–99; RESP 16–18; TEMP 36.2–37; O2SAT 93–96
[2019-05-29] MEDS: Normal Saline 1,000 ML 75 ML IV (05:25)
[2019-05-29] MEDS: Levothyroxine 100 MCG TAB PO (06:32)
[2019-05-29 06:42] LABS: HCT 27.4 % (36.0-46.0); HGB 9.2 g/dL (12.0-15.5); Mean Corp. HGB Concentration 33.6 g/dL (32.0-36.0); Mean Corpuscular Hemoglobin 36.9 pg (27.0-33.0); Mean Platelet Volume 8.8 fL (8.0-11.0); Platelet Count 286 x1000/uL (130-400); RBC 2.49 m/cumm (4.00-5.20); RBC Distribution Width 14.9 % (11.7-14.6)
[2019-05-29 06:56] LABS: Anion Gap 7.6 mmol/L (3-11); BUN 8 mg/dL (7-18); CO2 28.4 mmol/L (21.0-32.0); CREATININE 0.47 mg/dL (0.55-1.02); Calcium 8.4 mg/dL (8.5-10.1); Chloride 100 mmol/L (98-107); Glucose 92 mg/dL (74-106); Potassium 4.1 mmol/L (3.5-5.1); Sodium 136 mmol/L (136-145)
[2019-05-29 07:33] LABS: Absolute Basophil Count 0.03 k/cumm (0.0-0.2); Absolute Eosinophil Count 0.17 k/cumm (0.0-0.7); Absolute Lymphocyte Count 1.29 k/cumm (1.2-3.4); Absolute Monocyte Count 0.48 k/cumm (0.11-0.7); Absolute Neutrophil Count 1.43 k/cumm (1.2-6.7); Atypical Lymphocytes % 3; Diff Comment Manual Differential; Hypochromasia 1+; Macrocytosis 2+
[2019-05-29 07:34] LABS: Polychromasia Present
--- NOTE | 2019-05-29 08:26 | NT_ITS ---
Date of service: 05/29/19 Time of Service: 08:26 Occupational Therapy Notes 05/29/19 Per LEAN LEADER, OT will hold on OT services for this morning. OT will resume skilled OT services tomorrow. Jane Gomez [facility]TR[facility]
--- NOTE | 2019-05-29 08:26 | OT.INNT ---
Date of service: 05/29/19 Time of Service: 08:26 Occupational Therapy Notes 05/29/19 Per RUNNER WORKER, OT will hold on OT services for this morning. OT will resume skilled OT services tomorrow. Jane Gomez [facility]TR[facility]
[2019-05-29] MEDS: Pregabalin 25 MG CAP 75 MG PO ×2 (08:29→19:36)
[2019-05-29] MEDS: Folic Acid 1 MG TAB PO (08:29)
[2019-05-29] MEDS: Cefpodoxime 200 MG TAB PO ×2 (08:30→19:38)
[2019-05-29] MEDS: Multivitamin TAB 1 TAB PO (08:30)
[2019-05-29] MEDS: Omeprazole 20 MG CAPCR PO (08:30)
[2019-05-29] MEDS: Cyanocobalamin 500 MCG TAB PO (08:31)
[2019-05-29] MEDS: Cilostazol 100 MG TAB PO ×2 (08:31→19:38)
[2019-05-29] MEDS: Aspirin E.C. 81 MG TABEC PO (08:32)
[2019-05-29] MEDS: Thiamine 100 MG TAB PO (08:32)
[2019-05-29] MEDS: Calcium Carbonate *TUMS* 500 MG CHEW PO ×2 (08:32→19:39)
--- NOTE | 2019-05-29 09:57 | PT.INNT ---
Date of service: 05/29/19 Time of Service: 09:57 PT Notes Visit Reasons: FAILURE TO THRIVE, WEAKNESS 05/29/19 Hold morning PT session, per [employer]CH[employer], as patient is unable to participate safely at this time. Will attempt to resume PT services this afternoon, if appropriate.
--- NOTE | 2019-05-29 10:38 | PGE_ITS ---
Documented by User: Veronika De Los Santos NP 05/29/19 15:21 Date of Service Date of service: 05/29/19 Time of Service: 10:38 Assessment and Plan Assessment and plan (1) Sepsis: Status: Acute Assessment and plan: resolved, cultures have all been negative. tolerating downstep to oral antibiotics, vantin day 4/5. (2) Alcohol dependence: Status: Chronic Assessment and plan: no signs of withdrawal, can discontinue ciwa, continue thiamine. cessation discussed. (3) DVT (deep venous thrombosis): Status: Chronic Assessment and plan: continue heparin sc (4) Palliative care patient: Status: Acute Assessment and plan: Dr Kayla Yusuf consulted and following. (5) Essential hypertension: Status: Chronic Assessment and plan: blood pressures have been 140-160's since admission. after reviewing her chart I see pcp discontinued them d/t non-compliance. will start amlodipine for better control. continue to monitor. (6) DVT prophylaxis: Status: Acute Assessment and plan: heparin (7) Hypomagnesemia: Status: Acute Assessment and plan: repleted and normalized. (8) Discharge planning issues: Status: Acute Assessment and plan: case management following, referral has been placed at the [facility]. awaiting acceptance. if patient remains medically stable, [facility] status tomorrow. Subjective Subjective Interval history since last seen: staff report CIWA score of 12 overnight. patient is with no signs of withdrawal on exam. she is sitting quietly in her bed, oriented and appropriate. she denies any new pain, only chronic. she states she ate breakfast and tolerated well. she has been working with physical therapy. her ileostomy is patent with brown stool, consistency at baseline. Exam Const General: cooperative, comfortable and no acute distress Nutritional Appearance: thin Orientation: alert, awake and oriented x3 HENIL Head: normal to inspection, normocephalic and atraumatic Mouth: oral mucosae normal Resp Effort & Inspection: normal respiratory effort, able to speak in complete sente nces and no cough Auscultation: clear to auscultation bilaterally Cardio Rate: regular rate Rhythm: regular rhythm GI Inspection: other (ileostomy right side, patent, loose brown stool ) Palpation: soft Auscultation: normal bowel sounds Skin General skin exam: no rashes or lesions noted Neuro General: alert, awake and oriented x3 Extrem General: normal to inspection, full ROM and no pedal edema Psych Appearance: grossly normal Speech and Movement: speech and movement normal and agitated (overnight) Affect: labile affect Attitude: cooperative Insight: fair and limited Judgment: poor Objective Objective Clinical Data: Abnormal lab results 05/29/19 05/29/19 Range/Units 06:20 06:20 WBC 3.40 L (4.4-10.8) k/cumm RBC 2.49 L (4.00-5.20) m/cumm Hgb 9.2 L (12.0-15.5) g/dL Hct 27.4 L (36.0-46.0) % MCV 110.0 H (80-95) fL MCH 36.9 H (27.0-33.0) pg RDW 14.9 H (11.7-14.6) % Creatinine 0.47 L (0.55-1.02) mg/dL Calcium 8.4 L (8.5-10.1) mg/dL Vital Signs Temperature 37 C 05/29/19 07:30 Temperature Source Tympanic 05/29/19 07:30 Pulse 99 H 05/29/19 07:30 Pulse Rhythm Regular 05/29/19 08:20 Pulse Strength Normal 05/25/19 12:48 Respiratory Rate 17 05/29/19 07:30 Respiratory Effort Non-Labored 05/29/19 08:20 Respiratory Depth Normal 05/29/19 08:20 Respiratory Pattern Normal 05/29/19 08:20 Blood Pressure 148/82 H 05/29/19 07:30 Blood Pressure Mean 106 05/25/19 12:48 Blood Pressure Position Supine 05/25/19 12:48 Pulse Oximetry 93 L 05/29/19 07:30 Oxygen Delivery Method Room Air 05/29/19 07:30 Oxygen Flow Rate 0 05/29/19 07:30 Pain Level 0 05/29/19 07:30 Comment 05/28/19 21:42 Intake & Output 05/28/19 05/28/19 05/29/19 11:59 23:59 11:59 Intake Total 1397.5 / 2647.5 1250 / 2647.5 480 / 480 Output Total 650 / 1150 500 / 1150 200 / 200 Balance 747.5 / 1497.5 750 / 1497.5 280 / 280 Intake: IV 677.5 / 1327.5 650 / 1327.5 0 / 0 Oral 720 / 1320 600 / 1320 480 / 480 Output: Urine 650 / 950 300 / 950 Stool 200 / 200 200 / 200 Other: Urine Color Yellow Pale Yellow Urine Appearance Clear Clear Clear Urine Odor None None Comment bed was soaked and also voided voiding multiple times within the hour, void x2 in bedpan Voiding Methods Incontinent Bedpan Incontinent Diaper Incontinent Laboratory Results WBC 3.40 k/cumm (4.4-10.8) L 05/29/19 06:20 RBC 2.49 m/cumm (4.00-5.20) L 05/29/19 06:20 Hgb 9.2 g/dL (12.0-15.5) L 05/29/19 06:20 Hct 27.4 % (36.0-46.0) L 05/29/19 06:20 MCV 110.0 fL (80-95) H 05/29/19 06:20 MCH 36.9 pg (27.0-33.0) H 05/29/19 06:20 MCHC 33.6 g/dL (32.0-36.0) 05/29/19 06:20 RDW 14.9 % (11.7-14.6) H 05/29/19 06:20 Plt Count 286 x1000/uL (130-400) 05/29/19 06:20 MPV 8.8 fL (8.0-11.0) 05/29/19 06:20 Immature Gran % See Differential 05/29/19 06:20 Neutrophils % 42.0 05/29/19 06:20 Band Neutrophils % 16.0 % 05/25/19 11:50 Lymphocytes % 35.0 05/29/19 06:20 Atypical Lymphs % 3 05/29/19 06:20 Monocytes % 14.0 05/29/19 06:20 Eosinophils % 5.0 05/29/19 06:20 Basophils % 1.0 05/29/19 06:20 Absolute Neutrophils 1.43 k/cumm (1.2-6.7) 05/29/19 06:20 Absolute Lymphocytes 1.29 k/cumm (1.2-3.4) 05/29/19 06:20 Absolute Monocytes 0.48 k/cumm (0.11-0.7) 05/29/19 06:20 Absolute Eosinophils 0.17 k/cumm (0.0-0.7) 05/29/19 06:20 Absolute Basophils 0.03 k/cumm (0.0-0.2) 05/29/19 06:20 Differential Comment Manual differential 05/29/19 06:20 RBC Morphology See below 05/29/19 06:20 Polychromasia Present 05/29/19 06:20 Hypochromasia 1+ 05/29/19 06:20 Poikilocytosis 2+ 05/27/19 11:55 Anisocytosis 1+ 05/27/19 11:55 Macrocytosis 2+ 05/29/19 06:20 Retic Count 1.6 % (0.5-2.4) 05/28/19 04:45 Sodium 136 mmol/L (136-145) 05/29/19 06:20 Potassium 4.1 mmol/L (3.5-5.1) 05/29/19 06:20 Chloride 100 mmol/L (98-107) 05/29/19 06:20 Carbon Dioxide 28.4 mmol/L (21.0-32.0) 05/29/19 06:20 Anion Gap 7.6 mmol/L (3-11) 05/29/19 06:20 BUN 8 mg/dL (7-18) 05/29/19 06:20 Creatinine 0.47 mg/dL (0.55-1.02) L 05/29/19 06:20 Estimated GFR/1.73 m2 >= 60.00 (mL/min/1.73m2) 05/29/19 06:20 Glucose 92 mg/dL (74-106) 05/29/19 06:20 Lactate 1.2 mmol/L (0.6-1.4) 05/27/19 11:55 Calcium 8.4 mg/dL (8.5-10.1) L 05/29/19 06:20 Magnesium 1.1 mg/dL (1.8-2.4) L 05/28/19 04:45 Iron 68 ug/dL (50-170) 05/28/19 04:45 TIBC 194 ug/dL (250-450) L 05/28/19 04:45 Transferrin % Sat 35 % (15-50) 05/28/19 04:45 Ferritin 802 ng/mL (8-252) H 05/28/19 04:45 Total Bilirubin 0.3 mg/dL (0.2-1.0) 05/25/19 11:50 AST 101 U/L (15-37) H 05/25/19 11:50 ALT 49 U/L (14-59) 05/25/19 11:50 Alkaline Phosphatase 106 U/L (46-116) 05/25/19 11:50 Ammonia < 10 umol/L (11-32) L 05/25/19 11:50 Creatine Kinase 148 U/L (26-192) 05/25/19 11:50 Troponin I Cancelled 05/25/19 13:53 C-Reactive Protein 3.44 mg/dL (0.0-0.3) H 05/26/19 06:10 Total Protein 7.7 g/dL (6.4-8.2) 05/25/19 11:50 Albumin 3.8 g/dL (3.4-5.0) 05/25/19 11:50 Lipase 54 U/L (73-393) 05/25/19 11:50 Vitamin B12 584 pg/mL (193-986) 05/28/19 04:45 Folate 15.5 ng/mL (8.6-20.0) 05/28/19 04:45 Procalcitonin 0.1 ng/mL 05/27/19 11:55 TSH 33.80 uIU/mL (0.36-3.74) H 05/25/19 11:50 Free T4 0.87 ng/dL (0.76-1.46) 05/25/19 11:50 Urine Color Yellow (Yellow) 05/26/19 16:15 Urine Clarity Clear (Clear) 05/26/19 16:15 Urine pH 7.0 (5-8) 05/26/19 16:15 Ur Specific [place] 1.010 (1.005-1.025) 05/26/19 16:15 Urine Protein Negative mg/dL (Negative) 05/26/19 16:15 Urine Ketones Negative mg/dL (Negative) 05/26/19 16:15 Urine Blood Negative (Negative) 05/26/19 16:15 Urine Nitrite Negative (Negative) 05/26/19 16:15 Urine Bilirubin Negative (Negative) 05/26/19 16:15 Urine Urobilinogen 0.2 EU/dL (Up TO 0.2) 05/26/19 16:15 Ur Leukocyte Esterase Negative (Negative) 05/26/19 16:15 Urine RBC 0-2 HPF (0-2) 05/25/19 12:30 Urine WBC 0-2 HPF (0-5) 05/25/19 12:30 Ur Epithelial Cells Moderate HPF (Negative) 05/25/19 12:30 Urine Crystals Negative HPF (Negative) 05/25/19 12:30 Urine Bacteria Rare HPF (Negative) 05/25/19 12:30 Urine Casts Negative LPF (Negative) 05/25/19 12:30 Urine Mucus Negative (Negative) 05/25/19 12:30 Ur Culture Indicated? No 05/25/19 12:30 Urine Glucose Negative mg/dL (Negative) 05/26/19 16:15 Vancomycin Trough 18.2 ug/mL (10.0-20.0) 05/28/19 04:40 Urine Opiates Screen Negative (Negative) 05/25/19 11:25 Urine Methadone Screen Negative (Negative) 05/25/19 11:25 Ur Barbiturates Screen Negative (Negative) 05/25/19 11:25 Ur Tricyclics Screen Negative (Negative) 05/25/19 11:25 Ur Amphetamines Screen Negative (Negative) 05/25/19 11:25 U Benzodiazepines Scrn Negative (Negative) 05/25/19 11:25 Urine Cocaine Screen Negative (Negative) 05/25/19 11:25 Ur THC Screen Negative (Negative) 05/25/19 11:25 Ethyl Alcohol < 3.0 mg/dL (<3) 05/25/19 11:50 Documented by User: Jorge A Hylton 05/30/19 16:52
--- NOTE | 2019-05-29 14:35 | CHAPLAIN ---
I had as short visit with Kayla today as she was trying to nap. I'll plan to visit her tomorrow.
--- NOTE | 2019-05-29 15:33 | PT.INTREAT ---
Date of service: 05/29/19 Time of Service: 15:33 PT Notes Visit Reasons: FAILURE TO THRIVE, WEAKNESS Inpatient Physical Therapy Treatment Note [facility] Date: 05/29/2019 PRECAUTIONS: Fall SUBJECTIVE: Kayla reports that she slept very well last night, reporting that she had a great time on the meds that she was given. She is agreeable to participating in PT reporting during the PT session it feels really good to be up and walking. OBJECTIVE: PAIN: No complaints of pain BED MOBILITY/TRANSFERS Supine-sit: I Sit-stand: SBA Stand-sit: CGA GAIT Assistive Device: FWW Weight bearing: Full Assist: CGA-SBA Distance: 125' Deviation: Standing rest throughout gait training TOILETING: Patient was incontinent of urine, requiring Max A. ASSESSMENT: Patient tolerated session, without complaint. She would benefit from continued global conditioning and gait training for improved mobility and improved activity tolerance. PLAN: Continue with PT's POC TREATMENT CODE/TIME: 35 minutes; [id number] x2
--- NOTE | 2019-05-29 15:44 | PHARADMIT ---
Addendum entered by Elijah Joseph III 05/30/19 11:01: VS-OK CIWA-7 HR-101 Labs-OK Patient declined by he [facility] to go to swing bed later today Original Note: Admission Pharmacy Clinical Review FAILURE TO THRIVE, WEAKNESS Code Status Full Code Current Weight Wgt-39.3 kg on CIWA protocol&Meds Renally Cleared and Narrow Therapeutic Index Meds CrCl~ 46.39 Meds-OK QTc Value / Action Taken QYc-[id number] in 04/01 (na) BP Control, Fever BP- 148/82 Tmax-37C Electrolytes reviewed Na-136 K+4.1 Mag-2.0 DVT Prophylaxis ASA, Heparin-SC, Pletal Opiate Usage / Scheduled Bowel Regimen Ordered No No Plt/SCr for Heparin / Enoxaparin Plts-286 SCr-0.47 INR for Warfarin na H/H stable, WBC/Bands H&H-9.2/27.4 WBC- 3.40 Antibiotic appropriateness Cefpodoxime PO Cultures and Sensitivities Flu & C-diff NEG, Blood NoGrowth/72hrs Surgical ABX d/c within 24 hr na DM control / Insulin Dosing BG-92 Heart Failure (Check EF%) (MERLENE's, B-Block, Diuretics) Norvasc, IV to PO Switch No Home Meds Reviewed Yes Home Meds Not Ordered Valsartan, Apixaban, Lidoderm, Comments R-CRP-3.44, Vancomycin DC'D
[2019-05-29] MEDS: amLODIPine 5 MG TAB PO (15:59)
--- NOTE | 2019-05-29 16:23 | PDOC.CMPRO ---
- If Service Date Differs Date of service: 05/29/19 Time of Service: 16:23 Care Management Progress Note S/O: Kayla was sitting up in bed when CM met with her. She was pleasant and engaged readily with CM. She stated that she had the best night's sleep she has had in days and woke up pain free. She is admittedly in a great mood and was laughing and joking with CM. A: Kayla is a 58 year old female admitted to [facility] on 05/26/2019 for failure to thrive and weakness. P: Kayla will likely benefit from SNF placement when discharged. Her plan is to go for rehab, then return home when she is stronger. Unfortunately, both [facility] and [facility] have declined to offer Kayla a bed, creating a barrier to discharge. Consideration is being given to placing Kayla into swing bed status until a safe discharge plan can be formulated. MARIA G spoke with ALIREZA regarding pending LTM application and requested that the process be expedited. Anticipate LTM services in home setting, will continue to support Kayla and her discharge planning needs.
--- NOTE | 2019-05-29 18:43 | NUR.NOTE ---
Nursing Note: Pt was supervised on meal for few minutes, no signs of aspiration . Refused to have somebody in the room, pt stopped eating when staff at bedside. Pt requested to have four bedrails up.
[2019-05-29] MEDS: Acetaminophen 325 MG TAB PO (19:37)
[2019-05-29] MEDS: LORazepam 1 MG TAB PO/SL (19:38)
[2019-05-30 03:12] VITALS: BP 172/88; PULSE 98; RESP 16; TEMP 36.2; O2SAT 95
[2019-05-30] MEDS: Levothyroxine 100 MCG TAB PO (06:47)
[2019-05-30 06:50] LABS: Anion Gap 7.6 mmol/L (3-11); BUN 14 mg/dL (7-18); CO2 27.4 mmol/L (21.0-32.0); CREATININE 0.65 mg/dL (0.55-1.02); Calcium 8.6 mg/dL (8.5-10.1); Chloride 99 mmol/L (98-107); Glucose 111 mg/dL (74-106); Potassium 4.1 mmol/L (3.5-5.1); Sodium 134 mmol/L (136-145)
[2019-05-30] MEDS: Acetaminophen 325 MG TAB PO (06:52)
[2019-05-30] MEDS: LORazepam 1 MG TAB PO/SL (06:52)
[2019-05-30 07:09] LABS: Abs Immature Grans 0.03 k/cumm (0.0-0.09); HCT 31.1 % (36.0-46.0); HGB 10.3 g/dL (12.0-15.5); Mean Corp. HGB Concentration 33.1 g/dL (32.0-36.0); Mean Corpuscular Hemoglobin 36.4 pg (27.0-33.0); Mean Corpuscular Volume 109.9 fL (80-95); Mean Platelet Volume 9.3 fL (8.0-11.0); RBC 2.83 m/cumm (4.00-5.20); RBC Distribution Width 14.9 % (11.7-14.6); White Blood Cell Count 4.84 k/cumm (4.4-10.8)
[2019-05-30 07:40] VITALS: BP 151/87; PULSE 101; RESP 17; TEMP 37.1; O2SAT 96
[2019-05-30 07:42] LABS: Absolute Lymphocyte Count 1.65 k/cumm (1.2-3.4); Absolute Neutrophil Count 2.42 k/cumm (1.2-6.7); Atypical Lymphocytes % 4
[2019-05-30 07:43] LABS: Absolute Eosinophil Count 0.15 k/cumm (0.0-0.7); Absolute Monocyte Count 0.58 k/cumm (0.11-0.7); Diff Comment Manual Differential; Macrocytosis 2+; Polychromasia Present
[2019-05-30 07:44] LABS: Platelet Count 335 x1000/uL (130-400); Poikilocytes 1+
[2019-05-30] MEDS: Calcium Carbonate *TUMS* 500 MG CHEW PO (08:06)
[2019-05-30] MEDS: Omeprazole 20 MG CAPCR PO (08:06)
[2019-05-30] MEDS: Cefpodoxime 200 MG TAB PO ×2 (08:06→21:47)
[2019-05-30] MEDS: Aspirin E.C. 81 MG TABEC PO (08:06)
[2019-05-30] MEDS: Cyanocobalamin 500 MCG TAB PO (08:06)
[2019-05-30] MEDS: Normal Saline 1,000 ML 75 ML IV (08:06)
[2019-05-30] MEDS: Thiamine 100 MG TAB PO (08:07)
[2019-05-30] MEDS: Cilostazol 100 MG TAB PO ×2 (08:07→21:48)
[2019-05-30] MEDS: amLODIPine 5 MG TAB PO (08:07)
[2019-05-30] MEDS: Folic Acid 1 MG TAB PO (08:07)
[2019-05-30] MEDS: Multivitamin TAB 1 TAB PO (08:09)
--- NOTE | 2019-05-30 10:33 | OT.INNT ---
Date of service: 05/30/19 Time of Service: 10:30 Occupational Therapy Notes 05/30/19 OT attempted to see pt who states that she is not interested in OT services today. OT will attempt to resume OT services on Sunday. Jane Gomez OTR/[facility]
[2019-05-30] MEDS: Pregabalin 25 MG CAP 75 MG PO ×2 (10:59→21:47)
--- NOTE | 2019-05-30 12:47 | PGE_ITS ---
Date of Service Date of service: 05/30/19 Time of Service: 12:48 Assessment and Plan Assessment and plan (1) Swelling of right upper extremity: Start date: 05/30/19 Start time: 13:17 Status: Acute Assessment and plan: RUE is swollen to outer aspect elbow. U/S r/o DVT, with history of DVT. If negative will place in SB status tomorrow. (2) Sepsis: Start date: 05/30/19 Start time: 12:57 Status: Acute Assessment and plan: resolved, cultures have all been negative. tolerating downstep to oral antibiotics, vantin day 5/5. (3) Alcohol dependence: Start date: 05/30/19 Start time: 12:57 Status: Chronic Assessment and plan: no signs of withdrawal, CIWA discontinued. Ativan 0.5 mg po TID PRN anxiety. (4) DVT (deep venous thrombosis): Start date: 05/30/19 Start time: 12:58 Status: Chronic Assessment and plan: continue heparin sc (5) Palliative care patient: Start date: 05/30/19 Start time: 12:58 Status: Acute Assessment and plan: Dr. Yusuf saw patient. Patient unwilling to discuss drinking with her, feels that her alcohol use is not a problem. There is a poor sense of reality. (6) Essential hypertension: Start date: 05/30/19 Start time: 13:06 Status: Chronic Assessment and plan: BP variable. amlodipine started. continue to monitor. (7) DVT prophylaxis: Start date: 05/30/19 Start time: 13:15 Status: Acute Assessment and plan: heparin (8) Hypomagnesemia: Start date: 05/30/19 Start time: 13:15 Status: Acute Assessment and plan: repleted and normalized. (9) Discharge planning issues: Start date: 05/30/19 Start time: 13:16 Status: Acute Assessment and plan: Declined placement from [facility]. Will place in swing bed status, likely tomorrow. (10) Unstable gait: Start date: 05/30/19 Start time: 13:18 Status: Acute Assessment and plan: Once medically cleared will place in SB status as she is unsteady and needs PT/OT for strength and balance. Above case discussed with Dr. Hylton who is in agreement. Subjective Subjective Patient reports: no new complaints Interval history since last seen: Ambulating to chair with staff. Room is dark, patient objects when trying to turn on light or open curtain. Wants to sit in dark. C/o swelling to right outer aspect of elbow. History of DVT over the summer and not on eliquis as she was suppose to be. Will put in for u/s r/o DVT. U/S negative, swing patient for PT/OT. Exam Narrative Exam Narrative: Const: Appearing older than stated age. Underweight malnourished. sitting up in chair, demanding. HENT: thinning hair. Chronically ill appearing. Eyes: Perrla, EOMI Neck: Supple, no lymphedema, JVD or enlarged thyroid Heart: RRR, S1 S2 no galloups or murmurs. Resp: cough, non productive. LS diminished. Abd: thin, bS+x 4 Extremities: FROM; RUE with swelling, no clubbing, cyanosis Objective Objective Clinical Data: Abnormal lab results 05/30/19 05/30/19 Range/Units 06:18 06:18 RBC 2.83 L (4.00-5.20) m/cumm Hgb 10.3 L (12.0-15.5) g/dL Hct 31.1 L (36.0-46.0) % MCV 109.9 H (80-95) fL MCH 36.4 H (27.0-33.0) pg RDW 14.9 H (11.7-14.6) % Sodium 134 L (136-145) mmol/L Glucose 111 H (74-106) mg/dL Vital Signs Temperature 37.1 C 05/30/19 07:40 Temperature Source Tympanic 05/30/19 07:40 Pulse 101 H 05/30/19 07:40 Pulse Rhythm Regular 05/30/19 03:12 Pulse Strength Normal 05/25/19 12:48 Respiratory Rate 17 05/30/19 07:40 Respiratory Effort Non-Labored 05/30/19 03:12 Respiratory Depth Normal 05/30/19 03:12 Respiratory Pattern Normal 05/30/19 03:12 Blood Pressure 151/87 H 05/30/19 07:40 Blood Pressure Mean 106 05/25/19 12:48 Blood Pressure Position Supine 05/25/19 12:48 Pulse Oximetry 96 05/30/19 07:40 Oxygen Delivery Method Room Air 05/30/19 07:40 Oxygen Flow Rate 0 05/30/19 07:40 Pain Level 10 05/30/19 07:40 Comment 05/28/19 21:42 Intake & Output 05/29/19 05/30/19 05/30/19 23:59 11:59 23:59 Intake Total 1720 / 2200 1652.5 / 1652.5 Balance 1720 / 1900 1652.5 / 1652.5 Intake: IV 1000 / 1000 142.5 / 142.5 Oral 720 / 1200 1510 / 1510 Other: Urine Appearance Clear Clear Comment pt obtained washing basin and voided in it Voiding Methods Incontinent Incontinent Laboratory Results WBC 4.84 k/cumm (4.4-10.8) D 05/30/19 06:18 RBC 2.83 m/cumm (4.00-5.20) L 05/30/19 06:18 Hgb 10.3 g/dL (12.0-15.5) L 05/30/19 06:18 Hct 31.1 % (36.0-46.0) L 05/30/19 06:18 MCV 109.9 fL (80-95) H 05/30/19 06:18 MCH 36.4 pg (27.0-33.0) H 05/30/19 06:18 MCHC 33.1 g/dL (32.0-36.0) 05/30/19 06:18 RDW 14.9 % (11.7-14.6) H 05/30/19 06:18 Plt Count 335 x1000/uL (130-400) 05/30/19 06:18 MPV 9.3 fL (8.0-11.0) 05/30/19 06:18 Immature Gran % See Differential 05/30/19 06:18 Neutrophils % 47.0 05/30/19 06:18 Band Neutrophils % 3.0 % 05/30/19 06:18 Lymphocytes % 30.0 05/30/19 06:18 Atypical Lymphs % 4 05/30/19 06:18 Monocytes % 12.0 05/30/19 06:18 Eosinophils % 3.0 05/30/19 06:18 Basophils % 0.0 05/30/19 06:18 Metamyelocytes % 1.0 % 05/30/19 06:18 Absolute Neutrophils 2.42 k/cumm (1.2-6.7) 05/30/19 06:18 Absolute Lymphocytes 1.65 k/cumm (1.2-3.4) 05/30/19 06:18 Absolute Monocytes 0.58 k/cumm (0.11-0.7) 05/30/19 06:18 Absolute Eosinophils 0.15 k/cumm (0.0-0.7) 05/30/19 06:18 Absolute Basophils 0.00 k/cumm (0.0-0.2) 05/30/19 06:18 Differential Comment Manual differential 05/30/19 06:18 RBC Morphology See below 05/30/19 06:18 Polychromasia Present 05/30/19 06:18 Hypochromasia 1+ 05/29/19 06:20 Poikilocytosis 1+ 05/30/19 06:18 Anisocytosis 1+ 05/27/19 11:55 Macrocytosis 2+ 05/30/19 06:18 Retic Count 1.6 % (0.5-2.4) 05/28/19 04:45 Sodium 134 mmol/L (136-145) L 05/30/19 06:18 Potassium 4.1 mmol/L (3.5-5.1) 05/30/19 06:18 Chloride 99 mmol/L (98-107) 05/30/19 06:18 Carbon Dioxide 27.4 mmol/L (21.0-32.0) 05/30/19 06:18 Anion Gap 7.6 mmol/L (3-11) 05/30/19 06:18 BUN 14 mg/dL (7-18) D 05/30/19 06:18 Creatinine 0.65 mg/dL (0.55-1.02) 05/30/19 06:18 Estimated GFR/1.73 m2 >= 60.00 (mL/min/1.73m2) 05/30/19 06:18 Glucose 111 mg/dL (74-106) H 05/30/19 06:18 Lactate 1.2 mmol/L (0.6-1.4) 05/27/19 11:55 Calcium 8.6 mg/dL (8.5-10.1) 05/30/19 06:18 Magnesium 2.0 mg/dL (1.8-2.4) 05/29/19 06:20 Iron 68 ug/dL (50-170) 05/28/19 04:45 TIBC 194 ug/dL (250-450) L 05/28/19 04:45 Transferrin % Sat 35 % (15-50) 05/28/19 04:45 Ferritin 802 ng/mL (8-252) H 05/28/19 04:45 Total Bilirubin 0.3 mg/dL (0.2-1.0) 05/25/19 11:50 AST 101 U/L (15-37) H 05/25/19 11:50 ALT 49 U/L (14-59) 05/25/19 11:50 Alkaline Phosphatase 106 U/L (46-116) 05/25/19 11:50 Ammonia < 10 umol/L (11-32) L 05/25/19 11:50 Creatine Kinase 148 U/L (26-192) 05/25/19 11:50 Troponin I Cancelled 05/25/19 13:53 C-Reactive Protein 3.44 mg/dL (0.0-0.3) H 05/26/19 06:10 Total Protein 7.7 g/dL (6.4-8.2) 05/25/19 11:50 Albumin 3.8 g/dL (3.4-5.0) 05/25/19 11:50 Lipase 54 U/L (73-393) 05/25/19 11:50 Vitamin B12 584 pg/mL (193-986) 05/28/19 04:45 Folate 15.5 ng/mL (8.6-20.0) 05/28/19 04:45 Procalcitonin 0.1 ng/mL 05/27/19 11:55 TSH 33.80 uIU/mL (0.36-3.74) H 05/25/19 11:50 Free T4 0.87 ng/dL (0.76-1.46) 05/25/19 11:50 Urine Color Yellow (Yellow) 05/26/19 16:15 Urine Clarity Clear (Clear) 05/26/19 16:15 Urine pH 7.0 (5-8) 05/26/19 16:15 Ur Specific [place] 1.010 (1.005-1.025) 05/26/19 16:15 Urine Protein Negative mg/dL (Negative) 05/26/19 16:15 Urine Ketones Negative mg/dL (Negative) 05/26/19 16:15 Urine Blood Negative (Negative) 05/26/19 16:15 Urine Nitrite Negative (Negative) 05/26/19 16:15 Urine Bilirubin Negative (Negative) 05/26/19 16:15 Urine Urobilinogen 0.2 EU/dL (Up TO 0.2) 05/26/19 16:15 Ur Leukocyte Esterase Negative (Negative) 05/26/19 16:15 Urine RBC 0-2 HPF (0-2) 05/25/19 12:30 Urine WBC 0-2 HPF (0-5) 05/25/19 12:30 Ur Epithelial Cells Moderate HPF (Negative) 05/25/19 12:30 Urine Crystals Negative HPF (Negative) 05/25/19 12:30 Urine Bacteria Rare HPF (Negative) 05/25/19 12:30 Urine Casts Negative LPF (Negative) 05/25/19 12:30 Urine Mucus Negative (Negative) 05/25/19 12:30 Ur Culture Indicated? No 05/25/19 12:30 Urine Glucose Negative mg/dL (Negative) 05/26/19 16:15 Vancomycin Trough 18.2 ug/mL (10.0-20.0) 05/28/19 04:40 Urine Opiates Screen Negative (Negative) 05/25/19 11:25 Urine Methadone Screen Negative (Negative) 05/25/19 11:25 Ur Barbiturates Screen Negative (Negative) 05/25/19 11:25 Ur Tricyclics Screen Negative (Negative) 05/25/19 11:25 Ur Amphetamines Screen Negative (Negative) 05/25/19 11:25 U Benzodiazepines Scrn Negative (Negative) 05/25/19 11:25 Urine Cocaine Screen Negative (Negative) 05/25/19 11:25 Ur THC Screen Negative (Negative) 05/25/19 11:25 Ethyl Alcohol < 3.0 mg/dL (<3) 05/25/19 11:50
--- NOTE | 2019-05-30 13:25 | DI.US_ITS ---
EXAM: US UPPER EXTREMITY VENOUS RT CLINICAL HISTORY: swelling, history of DVT TECHNIQUE: Ultrasound performed using standard protocol. COMPARISON: No exams were available for comparison FINDINGS: There is thrombus visible in the cephalic vein which is noncompressible.. The basilic, brachial, s ubclavian and jugular veins appear free of thrombus. No localized fluid collection is seen. IMPRESSION: Thrombus in the cephalic vein.
[2019-05-30] MEDS: LORazepam 0.5 MG TAB PO ×2 (14:33→21:48)
--- NOTE | 2019-05-30 14:36 | PT.INTREAT ---
Date of service: 05/30/19 Time of Service: 14:36 PT Notes Visit Reasons: FAILURE TO THRIVE, WEAKNESS Inpatient Physical Therapy Treatment Note [facility] Date: 05/30/2019 PRECAUTIONS: Fall SUBJECTIVE: Kayla is agreeable to participating in PT, although indicates that she just returned from testing where she had to get up and down and on and off of the stretcher and wheelchair, which she states exhausted her. OBJECTIVE: PAIN: No complaints of pain BED MOBILITY/TRANSFERS Supine-sit: I Sit-stand: S Stand-sit: S GAIT Assistive Device: FWW Weight bearing: Full Assist: SBA Distance: 150' Deviation: Multiple standing rests throughout gait training TOILETING: Patient toileted with supervision ASSESSMENT: Patient tolerated session, with complaint of increased fatigue. She continues to require multiple standing rest throughout gait training due to fatigue. She would benefit from continued global conditioning and gait training for improved mobility and improved activity tolerance. PLAN: Continue with PT's POC TREATMENT CODE/TIME: 35 minutes; 47917 x2
[2019-05-30 15:10] VITALS: BP 151/86; PULSE 119; RESP 18; TEMP 37; O2SAT 95
--- NOTE | 2019-05-30 15:35 | W.PM.PROGNOT ---
Date of Service Date of service: 05/30/19 Time of Service: 15:36 Subjective Subjective Interval history since last seen: JOSH u/s found thrombus in cephalic vein. Started on Enoxaparin 40 mg BID. Objective Objective Clinical Data: Abnormal lab results 05/30/19 05/30/19 Range/Units 06:18 06:18 RBC 2.83 L (4.00-5.20) m/cumm Hgb 10.3 L (12.0-15.5) g/dL Hct 31.1 L (36.0-46.0) % MCV 109.9 H (80-95) fL MCH 36.4 H (27.0-33.0) pg RDW 14.9 H (11.7-14.6) % Sodium 134 L (136-145) mmol/L Glucose 111 H (74-106) mg/dL Vital Signs Temperature 37.0 C 05/30/19 15:10 Temperature Source Tympanic 05/30/19 15:10 Pulse 119 H 05/30/19 15:10 Pulse Rhythm Regular 05/30/19 03:12 Pulse Strength Normal 05/25/19 12:48 Respiratory Rate 18 05/30/19 15:10 Respiratory Effort Non-Labored 05/30/19 03:12 Respiratory Depth Normal 05/30/19 03:12 Respiratory Pattern Normal 05/30/19 03:12 Blood Pressure 151/86 H 05/30/19 15:10 Blood Pressure Mean 106 05/25/19 12:48 Blood Pressure Position Supine 05/25/19 12:48 Pulse Oximetry 95 05/30/19 15:10 Oxygen Delivery Method Room Air 05/30/19 15:10 Oxygen Flow Rate 0 05/30/19 15:10 Pain Level 10 05/30/19 15:10 Comment 05/28/19 21:42 Intake & Output 05/29/19 05/30/19 05/30/19 23:59 11:59 23:59 Intake Total 1720 / 2200 1652.5 / 1892.5 240 / 1892.5 Balance 1720 / 1900 1652.5 / 1892.5 240 / 1892.5 Intake: IV 1000 / 1000 142.5 / 142.5 Oral 720 / 1200 1510 / 1750 240 / 1750 Other: Urine Appearance Clear Clear Comment pt obtained washing basin and voided in it Voiding Methods Incontinent Incontinent Laboratory Results WBC 4.84 k/cumm (4.4-10.8) D 05/30/19 06:18 RBC 2.83 m/cumm (4.00-5.20) L 05/30/19 06:18 Hgb 10.3 g/dL (12.0-15.5) L 05/30/19 06:18 Hct 31.1 % (36.0-46.0) L 05/30/19 06:18 MCV 109.9 fL (80-95) H 05/30/19 06:18 MCH 36.4 pg (27.0-33.0) H 05/30/19 06:18 MCHC 33.1 g/dL (32.0-36.0) 05/30/19 06:18 RDW 14.9 % (11.7-14.6) H 05/30/19 06:18 Plt Count 335 x1000/uL (130-400) 05/30/19 06:18 MPV 9.3 fL (8.0-11.0) 05/30/19 06:18 Immature Gran % See Differential 05/30/19 06:18 Neutrophils % 47.0 05/30/19 06:18 Band Neutrophils % 3.0 % 05/30/19 06:18 Lymphocytes % 30.0 05/30/19 06:18 Atypical Lymphs % 4 05/30/19 06:18 Monocytes % 12.0 05/30/19 06:18 Eosinophils % 3.0 05/30/19 06:18 Basophils % 0.0 05/30/19 06:18 Metamyelocytes % 1.0 % 05/30/19 06:18 Absolute Neutrophils 2.42 k/cumm (1.2-6.7) 05/30/19 06:18 Absolute Lymphocytes 1.65 k/cumm (1.2-3.4) 05/30/19 06:18 Absolute Monocytes 0.58 k/cumm (0.11-0.7) 05/30/19 06:18 Absolute Eosinophils 0.15 k/cumm (0.0-0.7) 05/30/19 06:18 Absolute Basophils 0.00 k/cumm (0.0-0.2) 05/30/19 06:18 Differential Comment Manual differential 01/17/20 06:18 RBC Morphology See below 05/30/19 06:18 Polychromasia Present 05/30/19 06:18 Hypochromasia 1+ 05/29/19 06:20 Poikilocytosis 1+ 05/30/19 06:18 Anisocytosis 1+ 05/27/19 11:55 Macrocytosis 2+ 05/30/19 06:18 Retic Count 1.6 % (0.5-2.4) 05/28/19 04:45 Sodium 134 mmol/L (136-145) L 05/30/19 06:18 Potassium 4.1 mmol/L (3.5-5.1) 05/30/19 06:18 Chloride 99 mmol/L (98-107) 05/30/19 06:18 Carbon Dioxide 27.4 mmol/L (21.0-32.0) 05/30/19 06:18 Anion Gap 7.6 mmol/L (3-11) 05/30/19 06:18 BUN 14 mg/dL (7-18) D 05/30/19 06:18 Creatinine 0.65 mg/dL (0.55-1.02) 05/30/19 06:18 Estimated GFR/1.73 m2 >= 60.00 (mL/min/1.73m2) 05/30/19 06:18 Glucose 111 mg/dL (74-106) H 05/30/19 06:18 Lactate 1.2 mmol/L (0.6-1.4) 05/27/19 11:55 Calcium 8.6 mg/dL (8.5-10.1) 05/30/19 06:18 Magnesium 2.0 mg/dL (1.8-2.4) 05/29/19 06:20 Iron 68 ug/dL (50-170) 05/28/19 04:45 TIBC 194 ug/dL (250-450) L 05/28/19 04:45 Transferrin % Sat 35 % (15-50) 05/28/19 04:45 Ferritin 802 ng/mL (8-252) H 05/28/19 04:45 Total Bilirubin 0.3 mg/dL (0.2-1.0) 05/25/19 11:50 AST 101 U/L (15-37) H 05/25/19 11:50 ALT 49 U/L (14-59) 05/25/19 11:50 Alkaline Phosphatase 106 U/L (46-116) 05/25/19 11:50 Ammonia < 10 umol/L (11-32) L 05/25/19 11:50 Creatine Kinase 148 U/L (26-192) 05/25/19 11:50 Troponin I Cancelled 05/25/19 13:53 C-Reactive Protein 3.44 mg/dL (0.0-0.3) H 05/26/19 06:10 Total Protein 7.7 g/dL (6.4-8.2) 05/25/19 11:50 Albumin 3.8 g/dL (3.4-5.0) 05/25/19 11:50 Lipase 54 U/L (73-393) 05/25/19 11:50 Vitamin B12 584 pg/mL (193-986) 05/28/19 04:45 Folate 15.5 ng/mL (8.6-20.0) 05/28/19 04:45 Procalcitonin 0.1 ng/mL 05/27/19 11:55 TSH 33.80 uIU/mL (0.36-3.74) H 05/25/19 11:50 Free T4 0.87 ng/dL (0.76-1.46) 05/25/19 11:50 Urine Color Yellow (Yellow) 05/26/19 16:15 Urine Clarity Clear (Clear) 05/26/19 16:15 Urine pH 7.0 (5-8) 05/26/19 16:15 Ur Specific [place] 1.010 (1.005-1.025) 05/26/19 16:15 Urine Protein Negative mg/dL (Negative) 05/26/19 16:15 Urine Ketones Negative mg/dL (Negative) 05/26/19 16:15 Urine Blood Negative (Negative) 05/26/19 16:15 Urine Nitrite Negative (Negative) 05/26/19 16:15 Urine Bilirubin Negative (Negative) 05/26/19 16:15 Urine Urobilinogen 0.2 EU/dL (Up TO 0.2) 05/26/19 16:15 Ur Leukocyte Esterase Negative (Negative) 05/26/19 16:15 Urine RBC 0-2 HPF (0-2) 05/25/19 12:30 Urine WBC 0-2 HPF (0-5) 05/25/19 12:30 Ur Epithelial Cells Moderate HPF (Negative) 05/25/19 12:30 Urine Crystals Negative HPF (Negative) 05/25/19 12:30 Urine Bacteria Rare HPF (Negative) 05/25/19 12:30 Urine Casts Negative LPF (Negative) 05/25/19 12:30 Urine Mucus Negative (Negative) 05/25/19 12:30 Ur Culture Indicated? No 05/25/19 12:30 Urine Glucose Negative mg/dL (Negative) 05/26/19 16:15 Vancomycin Trough 18.2 ug/mL (10.0-20.0) 05/28/19 04:40 Urine Opiates Screen Negative (Negative) 05/25/19 11:25 Urine Methadone Screen Negative (Negative) 05/25/19 11:25 Ur Barbiturates Screen Negative (Negative) 05/25/19 11:25 Ur Tricyclics Screen Negative (Negative) 05/25/19 11:25 Ur Amphetamines Screen Negative (Negative) 05/25/19 11:25 U Benzodiazepines Scrn Negative (Negative) 05/25/19 11:25 Urine Cocaine Screen Negative (Negative) 05/25/19 11:25 Ur THC Screen Negative (Negative) 05/25/19 11:25 Ethyl Alcohol < 3.0 mg/dL (<3) 05/25/19 11:50
[2019-05-30] MEDS: Enoxaparin 40 MG/0.4 ML SYR SC (16:59)
--- NOTE | 2019-05-30 17:06 | CMPROGNOTE_ITS ---
- If Service Date Differs Date of service: 05/30/19 Time of Service: 17:06 Care Management Progress Note S/O: Kayla was sitting up in a chair when MARIA G met with her. She was admittedly not in a very good mood as she learned that she needs to have additional testing of her right arm. She was convinced it was a bug bite but her provider wanted to rule out a DVT. An ultrasound of her right upper extremity confirmed that she does indeed have a thrombus in the cephalic vein. MARIA G also discussed the possibility of going into swing bed with Kayal. Area SNFs have declined to accept her and she is not safe to return home alone at this time. Because of the thrombus she will remain acute status but may need to change to SB soon. Kayla was agreeable with the plan. A: Kayla is a 58 year old female admitted to [facility] on 05/26/2019 for failure to thrive and weakness. P: Kayla will likely benefit from SNF placement when discharged. Her hope is to go for rehab, then return home when she is stronger. Unfortunately, both [facility] and [facility] have declined to offer Kayla a bed, c reating a barrier to discharge. Consideration is being given to placing Kayla into swing bed status until a safe discharge plan can be formulated. MARIA G spoke with ALIREZA regarding pending LTM application and requested that the process be expedited. Anticipate LTM services in home setting, will continue to support Kayla and her discharge planning needs.
[2019-05-30] MEDS: diphenhydrAMINE 25 MG CAP PO (21:57)
[2019-05-30 23:49] VITALS: BP 155/87; PULSE 96; RESP 15; TEMP 37; O2SAT 95
[2019-05-31] MEDS: Enoxaparin 40 MG/0.4 ML SYR SC (03:35)
[2019-05-31] MEDS: Levothyroxine 100 MCG TAB PO (06:25)
[2019-05-31 07:50] VITALS: BP 126/64; PULSE 77; RESP 18; TEMP 36.8; O2SAT 96
[2019-05-31] MEDS: amLODIPine 5 MG TAB PO (08:45)
[2019-05-31] MEDS: Omeprazole 20 MG CAPCR PO (08:45)
[2019-05-31] MEDS: LORazepam 0.5 MG TAB PO (08:45)
[2019-05-31] MEDS: Cilostazol 100 MG TAB PO (08:45)
[2019-05-31] MEDS: Cefpodoxime 200 MG TAB PO (08:45)
[2019-05-31] MEDS: Calcium Carbonate *TUMS* 500 MG CHEW PO (08:45)
[2019-05-31] MEDS: Pregabalin 25 MG CAP 75 MG PO (08:45)
[2019-05-31] MEDS: Cyanocobalamin 500 MCG TAB PO (08:46)
[2019-05-31] MEDS: Aspirin E.C. 81 MG TABEC PO (08:46)
[2019-05-31] MEDS: Folic Acid 1 MG TAB PO (08:46)
[2019-05-31] MEDS: Thiamine 100 MG TAB PO (08:46)
[2019-05-31] MEDS: Multivitamin TAB 1 TAB PO (08:46)
[2019-05-31] MEDS: Apixaban 5 MG TAB 10 MG PO (10:06)
--- NOTE | 2019-05-31 10:21 | NUR.NOTE ---
pt being discharged from Acute pt to swingbed.Nursing Note:
[2019-05-31 11:35] VITALS: BP 132/69; PULSE 117
--- NOTE | 2019-05-31 11:53 | PT.INTREAT ---
PT Notes Visit Reasons: FAILURE TO THRIVE, WEAKNESS Inpatient Physical Therapy Treatment Note [facility] Date: 05/31/2019 PRECAUTIONS:fall SUBJECTIVE: Kayla states that she is doing well enough to go home. OBJECTIVE: [] BED MOBILITY/TRANSFERS Supine-sit: I Sit-supine: I Sit-stand: S Stand-sit: S GAIT Assistive Device: FWW Weight bearing: full Assist: SBA Distance: 150' Deviation: required a few standing resting breaks. THEREX: limited LE strengthening at EOB. See flowsheet for details. ASSESSMENT: tolerated session well. Postural cues were given during ambulation, as well as energy conservation techniques. Proper gait mechanics especially with increased stride length. PLAN: continue following established goals per PT POC. TREATMENT CODE/TIME: 40 min. [id number].
--- NOTE | 2019-05-31 12:54 | DSE_ITS ---
Date of service: 05/31/19 Time of Service: 12:55 DS: Diagnosis Discharge Diagnosis (1) Swelling of right upper extremity: Start date: 05/31/19 Start time: 12:55 Status: Acute Asessment and Plan: Found to have a DVT in her cephalic vein. Transitioned to oral apixaban, 10 mg x 7 days then decrease dose. (2) Sepsis: Start date: 05/31/19 Start time: 12:55 Status: Acute Asessment and Plan: Resolved. Evidenced by hypotension, tachycardia, and fever. Tmax 38.7 afebrile since 05/26/2019. Started on vanco and cefepime while r/o source. Urine, negative, u/s lower extremity negative, CT revealing small effusion atelectasis vs pneumonia. CRP was 3.44 initially. Sepsis likely underlying pneumonia. Though no cough or sputum production. Transitioned to po Vantin. BC NGTD. Cdiff negative. (3) Alcohol dependence: Start date: 05/31/19 Start time: 13:03 Status: Chronic Asessment and Plan: No alcohol in system upon admission. In denial about alcohol dependence though likes to talk about drinking and various types of alcohol. (4) DVT (deep venous thrombosis): Start date: 05/31/19 Start time: 13:06 Status: Chronic Asessment and Plan: See above. (5) Palliative care patient: Start date: 05/31/19 Start time: 13:04 Status: Acute Asessment and Plan: Seen by Dr. Yusuf (6) Essential hypertension: Start date: 05/31/19 Start time: 13:04 Status: Chronic Asessment and Plan: Initially low on admission however after sepsis improved hypertensive. According to previous provider notes was on meds in the past but discontinued due to noncompliance. Started on amlodipine and lisinopril. (7) DVT prophylaxis: Status: Acute (8) Hypomagnesemia: Status: Acute (9) Discharge planning issues: Status: Acute (10) Unstable gait: Start date: 05/31/19 Start time: 13:06 Status: Acute Asessment and Plan: Increasing weakness and unsteadiness. Will transition to swing bed for PT/OT. Discharge Plan Disposition Patient Disposition: [facility] SWING BED LEVEL 1 Condition: Stable Discharge Details Chief Complaint: GenMedical Clinical Impression: Failure to thrive Reason For Visit: FAILURE TO THRIVE, WEAKNESS Admit Date/Time: 05/26/19 09:55 Admit Provider: Tiarra Cavanaugh Attending Provider: Tiarra Cavanaugh Primary Care Provider: Chidi Mccormack ED Provider: Neeru De Los Santos Hospital Course Hospital Course: 58 y.o female well known to our service with PMH of ETOH dependence, COPD, Tobacco dependence, hypomagnesemia, hyponatremia, most recently abdominal abscess with a colovaginal fistula treated earlier this year with a colon resection/anastomosis/diverting ileostomy, admitted to [facility] m/s after being found down on ground by home health nurse. Ms. Leon was covered in stool with beer cans surrounding her though ethyl alcohol was negative in ED. During course of treatment CIWA monitored with score no higher than 5, LUCYWA dcd after couple of days. She has confabulated thoughts does not belief that she is alcohol dependent and wants to hear only what she deems suitable for her needs. She continues to ask when her ilieostomy will be replaced but does not want to hear that per Dr. العلي notes further testing was wanted at [facility]. Due to malnutrition thiamine, folate and multivitamin continued. Afebrile on admission but she did become febrile overnight with elevated CRP and procalcitonin 0.1. During the day she was hypotensive, tachycardic, and febrile. Vanco and cefepime started with IV bolus while r/o source of infection. U/A negative, cdiff negative, DVT lower extremities negative, CT abd chest revealing small bilateral effusions atelectasis vs pneumonia. Fevers deverfesced within 24 hours of antibiotics. BC no growth, transitioned to PO vantin and finished a 5 day course of antibiotics. Swelling to RUE seen yesterday, with a recent history of DVT to RLE and off her eliquis for months U/S of RUE ordered; cephalic Thrombus found, started on apixaban 10 mg BID x 7 days then transition to 5 mg. Evaluated by PT/OT who recommend she got to SNIF, to maximize functional mobility, however she was declined for placement. Therefore she will be transitioning to Swing bed status at [facility] for mobility and strength. She denies CP, SOB, N/V/D. Home Meds and New Rx's Prescriptions: Continued Eliquis 5 mg tablet 5 mg PO BID Qty: 60 RF: 0 triamcinolone acetonide 0.025 % cream 1 applic TP BID PRN (Reason: itching) Qty: 80 RF: 0 pregabalin 75 mg capsule 75 mg PO BID Qty: 30 RF: 0 levothyroxine 100 mcg tablet 100 mcg PO 0600 Qty: 90 RF: 3 lidocaine 4 % adhesive patch,medicated 1 patch TP Q24H PRN (Reason: pain) Qty: 6 RF: 12 folic acid 1 mg tablet 1 mg PO DAILY RF: 0 diphenhydramine HCl [Benadryl] 25 MG capsule 25 mg PO DAILY PRNRF: 0 aspirin [Adult Aspirin Regimen] 81 mg tablet,delayed release (DR/EC) 81 mg PO DAILY RF: 0 Bengay Greaseless 15-10 % cream 1 applic TP BID PRNRF: 0 acetaminophen 500 mg tablet 1,000 mg PO Q6H PRNRF: 0 cilostazol 100 mg tablet 100 mg PO BID RF: 0 calcium carbonate [Antacid (calcium carbonate)] 200 mg calcium (500 mg) tablet,chewable 200 mg PO TID RF: 0 omeprazole 20 mg capsule,delayed release(DR/EC) 20 mg PO DAILY RF: 0 thiamine HCl (vitamin B1) 50 mg tablet 50 mg PO DAILY RF: 0 ondansetron HCl [Zofran] 4 mg tablet 4 mg PO Q6H PRNRF: 0 magnesium oxide 400 mg (241.3 mg magnesium) Tablet 800 mg PO BID Qty: 0 RF: 0 clotrimazole 1 % Cream 60 g topical TID Qty: 0 RF: 0 vits A and D-white pet-lanolin Ointment 60 g topical TID Qty: 0 RF: 0 cyanocobalamin (vitamin B-12) 500 mcg lozenge 500 mcg PO DAILY Qty: 30 RF: 0 multivitamin tablet 1 tab PO DAILY Qty: 30 RF: 0 Discharge Instructions Activity:: Activity as Tolerated Equipment/Supplies:: No Equipment Needed Diet:: As Tolerated Discharge Orders Discharge Orders: Discharge Order (Routine); Ordered 05/31/19 Ordered By: Tiarra Cavanaugh DS: Summary Status at Discharge Functional status at discharge: uses cane/walker Overall status at discharge: patient is progressing back to baseline Mental Status: mental status grossly normal Speech and Movement: speech and movement normal Mood: labile mood Affect: labile affect Exam Narrative Exam Narrative: Const: Appearing older than stated age. Underweight malnourished. sitting up in chair, demanding. HENT: thinning hair. Chronically ill appearing. Eyes: Perrla, EOMI Neck: Supple, no lymphedema, JVD or enlarged thyroid Heart: RRR, S1 S2 no galloups or murmurs. Resp: cough, non productive. LS diminished. Abd: thin, bS+x 4 Extremities: FROM; RUE with swelling, no clubbing, cyanosis Psych Mental Status: mental status grossly normal Speech and Movement: speech and movement normal Mood: labile mood Affect: labile affect DS: Data Vitals/I&O Vitals and I&O: Vital Signs Temperature 36.8 C 05/31/19 07:50 Temperature Source Tympanic 05/31/19 07:50 Pulse 117 H 05/31/19 11:35 Pulse Rhythm Regular 05/31/19 11:22 Pulse Strength Normal 05/25/19 12:48 Respiratory Rate 18 05/31/19 07:50 Respiratory Effort Non-Labored 05/31/19 11:22 Respiratory Depth Normal 05/31/19 11:22 Respiratory Pattern Normal 05/31/19 11:22 Blood Pressure 132/69 05/31/19 11:35 Blood Pressure Mean 106 05/25/19 12:48 Blood Pressure Position Supine 05/25/19 12:48 Pulse Oximetry 96 05/31/19 07:50 Oxygen Delivery Method Room Air 05/31/19 07:50 Oxygen Flow Rate 0 05/31/19 07:50 Pain Level 0 05/31/19 07:50 Comment 05/28/19 21:42 Intake & Output 05/30/19 05/31/19 05/31/19 23:59 11:59 23:59 Intake Total 480 / 2.5 910 / 910 Output Total 200 / 200 200 / 200 Balance 280 / 1932.5 710 / 710 Intake: Oral 1989 910 / 910 Output: Stool 200 / 200 200 / 200 Other: Urine Color Yellow Yellow Urine Appearance Clear Clear Comment Dry at this time Voiding Methods Incontinent Incontinent Data Completed and Pending Completed studies during hospitalization [Text1]: Exam(s) a RAD:XR chest 2V PA & lateral EXAM: XR CHEST 2V PA LATERAL INDICATION: febrile COMPARISON: XR PORTABLE CHEST AP POST LINE from 02/03/2019 TECHNIQUE: 2D digital imaging was performed. FINDINGS: Heart size and pulmonary vasculature are within normal limits. No focal consolidating infiltrates are seen. There is blunting seen of the angles posteriorly bilaterally suggesting small pleural effusions. No pneumothorax is identified. Degenerative changes are seen in the spine. IMPRESSION: Small bilateral pleural effusions. Exam(s) a US:US extremity venous BI EXAM: US EXTREMITY VENOUS BI CLINICAL HISTORY: H/O DVT, NONCOMPLIANT ON BLOOD THINNERS, R/O DVT. TECHNIQUE: Bilateral lower extremity venous ultrasound performed using grayscale, color-flow, and spectral Doppler analysis. COMPARISON: No previous for comparison. FINDINGS: The bilateral common femoral, femoral and popliteal veins demonstrate normal compressibility, augmentation, and color Doppler. The posterior tibial veins are patent. Saphenofemoral junctions are unremarkable. No Wesley's cysts are present. IMPRESSION: Right: Negative for DVT Left: Negative for DVT Exam(s) a US:US upper extremity venous RT EXAM: US UPPER EXTREMITY VENOUS RT CLINICAL HISTORY: swelling, history of DVT TECHNIQUE: Ultrasound performed using standard protocol. COMPARISON: No exams were available for comparison FINDINGS: There is thrombus visible in the cephalic vein which is noncompressible.. The basilic, brachial, subclavian and jugular veins appear free of thrombus. No localized fluid collection is seen. IMPRESSION: Thrombus in the cephalic vein [facility] Medical History Alcohol dependence (Chronic) drinking beer during visit; many empties around Arterial occlusive disease (Chronic Unknown) ABIs [facility] [place] [facility] 11/30/16--bilateral & moderate Continuous chewing tobacco dependence (Inactive 01/22/12) COPD (chronic obstructive pulmonary disease) (Suspected) not proven, requires outpatient PFTs CRPS 1, lower extremity (Acute) possible diagnosis Essential hypertension (Chronic 01/22/12) Foot pain, left (Chronic 12/04/16) Neuropathic vs. claudication Hyperlipidemia (Chronic 08/21/12) Hyperlipidemia (Chronic 08/21/12) Hypothyroidism (Chronic) Neuropathy (Chronic 12/07/16) left foot Palliative care patient (Acute) Unstable gait (Acute) walks with a walker antalgic gait Wernicke-Korsakoff syndrome (Chronic) Surgical History S/P colectomy (Acute 12/26/18) lap converted to open sigmoid colectomy w/ primary stapled anastomosis and diverting loop ileostomy Family History Son Parent-child estrangement nec Father , in his 90s of old age No problems noted. Mother , in her 30s, murdered Murder Brother , age 50 Assault by being hit or run over by motor vehicle, sequela Social History Smoking/Tobacco Use Status: Current every day Tobacco Type: cigarettes Quit status: not considering quitting Counseling given: counseling >3 minutes Alcohol Intake: current Alcohol Intake frequency: 3 or more drinks per day Alcohol type: beer and hard liquor Counseling given: Yes Counseling provided: reduce to 2 or less/day Drug use: Never Substance use type: does not use Caregiver/Support person: No Household members: none Housing: apartment Number of Children: 1 Communication Needs: Corrective Lenses Education Level: high school Do you need help understanding health information?: Always current occupation: not working at this time Pets and animals: Yes (Mr Joel Sharp) Pets and animals: cat(s) What is your relationship status?: never How often do you talk on the phone with friends or family?: twice per week Panel score (0-1 are the most socially isolated patients): 0 What type of physical activity do you participate in: none Special carlie needs: No Agree to transfusion: Yes Seatbelt use: always Drive 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 Has not been back to work since then. Twice has been found down, with elevated etoh level, covered in feces. Wants to return to work. No longer receiving health benefits from [employer]. Thinks she can go back second shift if I want. Unrealistic.
[2019-05-31 13:21] LABS: C-Reactive Protein 0.26 mg/dL (0.0-0.3)
--- NOTE | 2019-05-31 20:07 | CMPROGNOTE_ITS ---
- If Service Date Differs Date of service: 05/31/19 Time of Service: 20:07 Care Management Progress Note S/O: Kayla will be transitioned to SWB level 1 today to continue to work with PT/OT. She transitioned to oral apixaban for DVT in [facility]. She also transitioned to oral abx to continue to treat sepsis. PT recommended SNF placement, but Kayla was declined by the local facilities, therefore she will stay at [facility] for SWB1 for mobility and strength. CM will continue to follow. A: Kayla is a 58 year old female admitted to Swing bed level 1 to continue to work with PT/OT to strengthen prior to returning home. P: Kayla will transition to SWB level 1 today to continue to work with PT/OT prior to returning home. Palliative consult has been ordered. CM will check on LTM status in a few days as it was requested to be expedited. Once Kayla has reached her goals with PT/OT, CM will coordinate transportation home via [facility]. She will follow up with her PCP, as recommended. CM will continue to follow and support discharge planning considerations.
--- NOTE | 2019-06-01 12:00 | INDS_ITS ---
Date of service: 06/01/19 PT Notes Visit Reasons: FAILURE TO THRIVE, WEAKNESS PT Inpatient Discharge Summary Date: 06/01/2019 Referring Doctor: Tiarra Cavanaugh NP PT Orders: PT CONSULT: Limited ability Precautions: Fall. Enteric contact precautions. Patient Profile/Admitting Diagnosis: Patient converts to SB 1 on 05/31/2019. Patient is a 58-year-old female with past medical history significant for arterial occlusive disease, neuropathy, foot pain, history of ETOH abuse, and hypothyroidism who presented to the ED via EMS on 05/25/2019 due to a mechanical fall. Patient states that she slid onto the floor from her chair. Patient was diagnosed with failure to thrive, hypomagnesemia, and chronic hyponatremia. Referral for physical therapy was made to address impairments in strength, balance, and mobility level. PMHX: Medical History Alcohol dependence (Chronic) drinking beer during visit; many empties around Arterial occlusive disease (Chronic Unknown) ABIs [facility] 11/30/16--bilateral & moderate Colostomy in place (Chronic) wants this reversed as soon as [facility] surgery team agrees Continuous chewing tobacco dependence (Inactive 01/22/12) COPD (chronic obstructive pulmonary disease) (Suspected) not proven, requires outpatient PFTs CRPS 1, lower extremity (Acute) possible diagnosis Essential hypertension (Chronic 01/22/12) Foot pain, left (Chronic 12/04/16) Neuropathic vs. claudication Hyperlipidemia (Chronic 08/21/12) Hyperlipidemia (Chronic 08/21/12) Hypothyroidism (Chronic) Neuropathy (Chronic 12/07/16) left foot Palliative care patient (Acute) Unstable gait (Acute) walks with a walker Antalgic gait Wernicke-Korsakoff syndrome (Acute) Surgical History S/P colectomy (Acute 12/26/18) lap converted to open sigmoid colectomy w/ primary stapled anastomosis and diverting loop ileostomy Social History/Home Situation: Patient lives at alone in an apartment in [place], [place]. She states she is independent with all aspects of ADLs without assistive ambulatory devices nor adaptive equipment. She reports she has worked for a long time at [employer]. Equipment Owned/DME: None. Subjective: NT Objective: General Observation: NT Mental Status: NT Pain: NT ROM: Right Upper Extremity: Shoulder Flexion 0-80. Shoulder abduction 0-60. Elbow flexion WFL. Wrist flexion WFL. Functional opening and closing of hand WFL. Left Upper Extremity: Shoulder Flexion WFL. Shoulder abduction WFL. Elbow flexion WFL. Wrist flexion WFL. Functional opening and closing of hand WFL. Right Lower Extremity: Hip flexion WFL. Hip abduction WFL. Knee flexion WFL. Ankle dorsiflexion WFL. Ankle plantarflexion WFL. Left Lower Extremity: Hip flexion WFL. Hip abduction WFL. Knee flexion WFL. Ankle dorsiflexion WFL. Ankle plantarflexion WFL. STRENGTH: Right Upper Extremity: Shoulder flexors 3-/5. Shoulder abductors 3-/5. Elbow flexors 4/5. Elbow extensors 4/5. Grinding Wheel Facer strong. Left Upper Extremity: Shoulder flexors 4/5. Shoulder abductors 4/5. Elbow flexors 4/5. Elbow extensors 4/5. Grinding Wheel Facer strong. Right Lower Extremity:Hip flexors 3+/5. Hip abductors 3+/5. Knee flexors 3+/5. Knee extensors 4-/5. Ankle dorsiflexors 4/5. Ankle plantarflexors 4/5. Left Lower Extremity: Hip flexors 3+/5. Hip abductors 3+/5. Patient was able to tolerate minimal resistance provided to hip and knee extension in supine. Knee flexors 3+/5. Knee extensors 4-/5. Ankle dorsiflexors 4/5. Ankle plantarflexors 4/5. Sensation: Intact as to pain and pressure to B LE. BED MOBILITY LEVELS/TRANSFERS Supine to sit independent Sit to supine independent Sit to stand: supervision Stand to sit supervision Bed to chair supervision Chair to bed supervision Gait: Patient took 250 feet from bed to chair but reported fatigue with supervision. Patient used FWW with moderate to maximal verbal cues provided for safety. Balance: Static Sitting:Normal Dynamic Sitting: Normal Static Standing: Good Dynamic Standing: Fair Assessment: Patient is a 58-year-old female with past medical history significant for arterial occlusive disease, neuropathy, foot pain, history of ETOH abuse, and hypothyroidism who presented to the ED via EMS on 05/25/2019 due to a mechanical fall. Patient states that she slid onto the floor from her chair. Patient was diagnosed with failure to thrive, hypomagnesemia, and chronic hyponatremia. Patient presented with the following impairment level findings: 1. Decreased strength to B LE major muscle groups 2. Impaired sitting/standing balance 3. Impaired activity tolerance Impairments continue to contribute to the following functional limitations: 1. Inability to safely ambulate without assistive device and physical assistance 2. Increase completion time for mobility ADL performance 3. Increased fall risk 4. Inability to negotiate steps alone safely Goals: Goals X1 week 1. Supine-Sit independent MET 2. Sit-Supine independent MET 3. Sit-Stand independent NOT MET 4. Stand-Sit independent NOT MET 5. Bed-Chair independent NOT MET 6. Chair-Bed independent NOT MET 7. Independent gait on level surface with use of least restrictive device for at least 100 feet without report of pain nor dyspnea NOT MET 8. Independent stair negotiation while holding onto bilateral rails for at least 5 steps without report of pain nor dyspnea NOT MET 9. Independent with home exercise program NOT MET 10. Good static and dynamic standing balance/tolerance NOT MET DISCHARGE RECOMMENDATIONS: Patient will benefit from group home facility placement in order to maximize functional mobility level. Patient benefit from a front wheeled walker to maximize mobility and reduce fall risk TREATMENT CODE/TIME: NC. Thank you very much for this referral. Kenia Saba PT, DPT, CLT [facility] Inpatient PT at [facility]
--- NOTE | 2019-06-02 07:17 | OTDS_ITS ---
Date of service: 06/02/19 Time of Service: 07:17 Occupational Therapy Notes Occupational Therapy Inpatient Discharge Summary Date: 06/02/19 for 06/01/19 Dates of Service: 05/27/19- 06/01/19 Referring Doctor:Tiarra Cavanaugh NP OT Orders: Eval and treat Precautions: Contact/Fall PATIENT PROFILE/ADMITTING DIAGNOSIS: Pt is a 58 year old female admitted through the ER with c/o diarrhea, weakness, dehydration, failure to thrive, admitted on 05/25/2019 due to a mechanical fall. Patient states that she slid onto the floor from her chair. Patient was diagnosed with alcohol withdrawal, multiple wounds in B UE/LE, folate deficiency, and tobacco abuse. Pt states that she has been in and out of the hospital multiple times. Past Medical History: Continuous chewing tobacco dependence (Inactive 01/22/12) Hyperlipidemia (Chronic 08/21/12) Neuropathy (Chronic 12/07/16) Hyperlipidemia (Chronic 08/21/12) Foot pain, left (Chronic 12/04/16) Essential hypertension (Chronic 01/22/12) Arterial occlusive disease (Chronic 12/04/16) Hypothyroidism (Chronic) Social History/Home Situation: Pt lives alone in an apartment at her baseline. She states that she does not use any devices for functional mobility. At Baseline pts ADLs are performed at the following level of function- Eating-(I) Grocery Shopping- Shops when she needs to, however states that she freezes all of her food and just eats it over the months. She states that she very rarely goes to get food. Cooking- Microwave Sleeping-(I) Dressing- (I) UE, requires increased time with LE Bathing- Only has a bathtub no shower. She states its an old claw foot tub and she does this (I). But pt admits that she could get into the tub but she cannot get out and she is unable to perform her bathing in the tub at this time. Driving- Does not drive, states she walks everywhere Work- Previously worked at [employer] in [place] 3rd shift. Has had mu ltiple dramatic experiences in the work place. She has not returned to her work demands since last admission to [facility]. Support- Pt states that she has very limited social support/family or friends. 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 PAIN: no c/o pain FUNCTIONAL MOBILITY Rolling L/R: (S) Supine-sit: (S) Sit-supine: (S) Sit-stand: (S) Stand-sit: (S) Bed-Commode: (S) BATHING: Sitting on side of the bed Upper Body: (I) with min vc Lower Body: Min (A) with min vc DRESSING Dressing UE min (A) don and [facility] gown Dressing LE mod (A) don and doff (B) socks, pt has decreased bend at the hips and notes that she is too tired. GROOMING Pt denies TOILETING pt is incontinent most of the time. BALANCE: Static sitting Normal Dynamic Sitting Good ASSESSMENT: Patient is a 58-year-old female referred to occupational therapy services with diagnosis of complaints of diarrhea, weakness, dehydration, failure to thrive admitted on 05/25/2019 due to a mechanical fall. Pt was only seen for 2 skilled OT sessions. She was unable to make any significant gains in this time. Pt was transitioned to [facility] bed 1 and OT will assess pt on this level of care at this time. GOALS- Progressing towards. 1. Transfers FWW (I) 2. Dressing (I) in sitting position with ideal technique 3. Bathing (I) standing at sink for (B) UE, face and abdomen 4. Toileting (I) on toilet 5. Eating (I) 6. Pt will be able to stand at sink with FWW to brush her teeth and hair (I). PLAN OF CARE/TREATMENT PLAN: Discharge from acute level care to [facility] DISCHARGE RECOMMENDATIONS Based on pts current functional status, OT recommends SNF due to pts decreased safety awareness and generalized weakness affecting her ADLs/IADLs. TREATMENT TIME/MINUTES/CODES N/A Jane Gomez, OTR/L [facility]
--- NOTE | 2019-06-09 16:48 | PDOC.CMDIS ---
- If Service Date Differs Date of service: 06/09/19 Time of Service: 16:48 LACE Index Scoring Tool - Questions: Length of Stay (in days): 14 or more Acuity (Admit via E.D.?): Yes Comorbidities: Cerebrovascular Disease, PVD, Chronic Pulmonary Disease E.D. Visits: 8 - Answers: Total Score: 19 Risk of Readmission: High Risk Care Management Discharge Reason for Hospitalization: failure to thrive Discharge Plan: Kayla will be discharged home with a resumption of nursing, OT and [employer]. She will follow up with her PCP and discharge plan of care. Kayla will transport via [facility] scheduled for 1:45 pm, coordinated by CM. Patient/Family Education Needs: Discharge plan, limitations, follow up plan, Ask Me Three.
== END 2019-05-31 13:39 | disposition swing bed (61) | DRG 640 ==
LOC: ER 13:41 → MS 14:03
PROVIDERS: Internal Medicine; Nurse Practitioner Acute Care; Admitting Provider Nurse Practitioner Family; Emergency Provider Physician Assistant; PCP Family Medicine; Visit Provider Internal Medicine
DX: R62.7 Adult failure to thrive (principal); A41.9 Sepsis, unspecified organism; E46 Unspecified protein-calorie malnutrition; E87.1 Hypo-osmolality and hyponatremia; I82.611 Acute embolism and thrombosis of superficial veins of right upper extremity; G90.522 Complex regional pain syndrome I of left lower limb; Z68.1 Body mass index [BMI] 19.9 or less, adult; F10.20 Alcohol dependence, uncomplicated; R53.1 Weakness; R26.81 Unsteadiness on feet; E83.42 Hypomagnesemia; Z51.5 Encounter for palliative care; Z93.2 Ileostomy status; Z98.0 Intestinal bypass and anastomosis status; Z90.49 Acquired absence of other specified parts of digestive tract; D64.89 Other specified anemias; J44.9 Chronic obstructive pulmonary disease, unspecified; I10 Essential (primary) hypertension; M79.672 Pain in left foot; E03.9 Hypothyroidism, unspecified; E78.5 Hyperlipidemia, unspecified; F17.210 Nicotine dependence, cigarettes, uncomplicated; R32 Unspecified urinary incontinence; Z86.718 Personal history of other venous thrombosis and embolism
CPT/HCPCS: 36410; 36415; 80048; 80053; 80307; 82550; 83690; 84145; 87040; 87449; 96360; 96361; 97162; 97166; 97530; 97535; 99223; 99233; 99239; 99254; 99285; J1650; NC; 71046; 74177; 80202; 80320; 81003; 81015; 82140; 82607; 82728; 82746; 83540; 83550; 83605; 83735; 84439; 84443; 84484; 85025; 85045; 86140; 87324; 93005; 93010; 93970; 93971; 99284; G0378; J1644; J3475; J3490; Q9967

== ENCOUNTER 2019-05-31 13:26 | Inpatient (IN) | payer MEDICAID, SELFPAY ==
--- NOTE | 2019-05-31 14:22 | W.PM.HP.N ---
Date of service: 05/31/19 Time of Service: 14:23 Assessment and Plan Assessment and plan (1) Ambulatory dysfunction: Start date: 05/31/19 Start time: 16:27 Status: Acute Assessment and plan: Due to alcohol dependence, poor self care and malnutrition. Not withdrawaling. Declined from several facilities for PT/OT, but not safe enough or strong enough to go home until services set up. Work with PT/OT to regain strength and balance. Swing bed status until able to go home. Will check labs weekly. (2) DVT (deep venous thrombosis): Start date: 05/31/19 Start time: 16:28 Status: Chronic Assessment and plan: Thrombus in right cephalic vein. Started on 10 mg bid apixaban x 7 days then transition to 5 mg bid. Recent history or DVT in RLE found over the summer while inpatient [place] [facility]. Was suppose to continue apixaban but has not taken since before february per pharmacy (3) Unstable gait: Start date: 05/31/19 Start time: 16:30 Status: Acute Assessment and plan: Due to weakness, malnutrition. See above. (4) Chronic malnutrition: Start date: 05/31/19 Start time: 16:30 Status: Acute Assessment and plan: Poor self care and denial about ETOH dependence. Patient gets angry when talking about alcohol use and does not feel she drinks too much. Unrealistic in the amount she actually ingests confabulates the truth, also states she usually only eats 1 meal a day, though she did state that I havent worked in almost a year and feeding my cat is more important then feeding myself. Continue thiamine, folic acid, multivitamin, dietary consult and offering healthy low sodium meals. Above case discussed with Dr. Quesada who is in agreement (5) HTN (hypertension): Start date: 05/31/19 Start time: 16:34 Status: Chronic Assessment and plan: Upset that she has been placed on bp meds, stating I have been off for years. Started on amlodipine for SBP 160's-170's. Dose increased as HR is elevated as well and also started on lisinopril 5 mg. Monitor BP. Above case discussed with Dr. Quesada who is in agreement. History of Present Illness History of Present Illness Chief Complaint: Unsteady gait, DVT, ambulatory dysfunction Narrative: 58 y.o female well known to our service with PMH of ETOH dependence, COPD, Tobacco dependence, hypomagnesemia, hyponatremia, most recently abdominal abscess with a colovaginal fistula treated earlier this year with a colon resection/anastomosis/diverting ileostomy, admitted to [facility] Swing bed status after being found down on ground by home health nurse. Ms. Leon was covered in stool with beer cans surrounding her though ethyl alcohol was negative in ED. During course of treatment CIWA monitored with score no higher than 5, LUCYWA dcd after couple of days. She has confabulated thoughts does not belief that she is alcohol dependent and wants to hear only what she deems suitable for her needs. She continues to ask when her ilieostomy will be replaced but does not want to hear that per Dr. العلي notes further testing was wanted at [facility]. Due to malnutrition thiamine, folate and multivitamin continued. Afebrile on admission but she did become febrile overnight with elevated CRP and procalcitonin 0.1. During the day she was hypotensive, tachycardic, and febrile. Vanco and cefepime started with IV bolus while r/o source of infection. U/A negative, cdiff negative, DVT lower extremities negative, CT abd chest revealing small bilateral effusions atelectasis vs pneumonia. Fevers deverfesced within 24 hours of antibiotics. BC no growth, transitioned to PO vantin and finished a 5 day course of antibiotics. Swelling to RUE seen yesterday, with a recent history of DVT to RLE and off her eliquis for months U/S of RUE ordered; cephalic Thrombus found, started on apixaban 10 mg BID x 7 days then transition to 5 mg. Evaluated by PT/OT who recommend she got to SN[facility], to maximize functional mobility, however she was declined for placement. Therefore she will be transitioning to Swing bed status at [facility] for mobility and strength. She denies CP, SOB, N/V/D. Review of Systems All systems reviewed & are unremarkable except as noted in HPI and below [facility] Medical History Alcohol dependence (Chronic) drinking beer during visit; many empties around Arterial occlusive disease (Chronic Unknown) ABIs [facility] [place] [facility] 11/30/16--bilateral & moderate Continuous chewing tobacco dependence (Inactive 01/22/12) COPD (chronic obstructive pulmonary disease) (Suspected) not proven, requires outpatient PFTs CRPS 1, lower extremity (Acute) possible diagnosis Essential hypertension (Chronic 01/22/12) Foot pain, left (Chronic 12/04/16) Neuropathic vs. claudication Hyperlipidemia (Chronic 08/21/12) Hyperlipidemia (Chronic 08/21/12) Hypothyroidism (Chronic) Neuropathy (Chronic 12/07/16) left foot Palliative care patient (Acute) Unstable gait (Acute) walks with a walker antalgic gait Wernicke-Korsakoff syndrome (Chronic) Surgical History S/P colectomy (Acute 12/26/18) lap converted to open sigmoid colectomy w/ primary stapled anastomosis and diverting loop ileostomy Family History Son Parent-child estrangement nec Father , in his 90s of old age No problems noted. Mother , in her 30s, murdered Murder Brother , age 50 Assault by being hit or run over by motor vehicle, sequela Social History Smoking/Tobacco Use Status: Current every day Tobacco Type: cigarettes Quit status: not considering quitting Counseling given: counseling >3 minutes Alcohol Intake: current Alcohol Intake frequency: 3 or more drinks per day Alcohol type: beer and hard liquor Counseling given: Yes Counseling provided: reduce to 2 or less/day Drug use: Never Substance use type: does not use Caregiver/Support person: No Household members: none Housing: apartment Number of Children: 1 Communication Needs: Corrective Lenses Education Level: high school Do you need help understanding health information?: Always current occupation: not working at this time Pets and animals: Yes (Mr Joel Sharp) Pets and animals: cat(s) What is your relationship status?: never How often do you talk on the phone with friends or family?: twice per week Panel score (0-1 are the most socially isolated patients): 0 What type of physical activity do you participate in: none Special carlie needs: No Agree to transfusion: Yes Seatbelt use: always Drive intox 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 Has not been back to work since then. Twice has been found down, with elevated etoh level, covered in feces. Wants to return to work. No longer receiving health benefits from [employer]. Thinks she can go back second shift if I want. Unrealistic. Meds Home Medications and Allergies Home Medications Medication Instructions Recorded Confirmed Type diphenhydramine HCl [Benadryl] 25 mg PO DAILY PRN 08/14/16 05/31/19 History clotrimazole 60 g TOPICAL TID #0 g 09/14/18 05/31/19 Rx cyanocobalamin (vitamin B-12) 500 mcg PO DAILY #30 each 09/14/18 05/31/19 Rx magnesium oxide 800 mg PO BID #0 tab 09/14/18 05/31/19 Rx multivitamin 1 tab PO DAILY #30 tab 09/14/18 05/31/19 Rx vits A and D-white pet-lanolin 60 g TOPICAL TID #0 g 09/14/18 05/31/19 Rx aspirin 81 mg tablet,delayed 81 mg PO DAILY 01/14/19 05/31/19 History release acetaminophen 500 mg tablet 1,000 mg PO Q6H PRN tab 02/17/19 05/31/19 History cilostazol 100 mg tablet 100 mg PO BID 02/17/19 05/31/19 History methyl salicylate 15 %-menthol 10 1 applic TP BID PRN 02/17/19 05/31/19 History % topical cream apixaban 5 mg tablet 5 mg PO BID #60 tab 02/25/19 05/31/19 Rx triamcinolone acetonide 0.025 % 1 applic TP BID PRN #80 gm 02/25/19 05/31/19 Rx topical cream folic acid 1 mg tablet 1 mg PO DAILY 04/01/19 05/31/19 History calcium carbonate 200 mg calcium 200 mg PO TID 05/15/19 05/31/19 History (500 mg) chewable tablet omeprazole 20 mg capsule,delayed 20 mg PO DAILY 05/15/19 05/31/19 History release ondansetron HCl 4 mg tablet 4 mg PO Q6H PRN 05/15/19 05/31/19 History thiamine HCl (vitamin B1) 50 mg 50 mg PO DAILY 05/15/19 05/31/19 History tablet levothyroxine 100 mcg tablet 100 mcg PO 0600 #90 tab 05/19/19 05/31/19 Rx pregabalin 75 mg capsule 75 mg PO BID #30 cap 05/19/19 05/31/19 Rx lidocaine 4 % topical patch 1 patch TP Q24H PRN #6 each 05/22/19 05/31/19 Rx Allergies Allergy/AdvReac Type Severity Reaction Status Date / Time hydrochlorothiazide Allergy Severe RASH Verified 05/25/19 11:08 morphine Allergy Severe stops Verified 05/25/19 11:08 breathing simvastatin Allergy Intermediate rash Verified 05/25/19 11:08 Penicillins Allergy Unknown unknown Verified 05/25/19 11:08 adhesive tape AdvReac itching, Verified 05/25/19 11:08 redness under iv dressing. CANNABINOID Allergy Unknown Swelling/Ed Uncoded 05/25/19 11:08 hans Exam Narrative Exam Narrative: Exam Narrative: Const: Appearing older than stated age. Underweight malnourished. sitting up in bed, demanding. HENT: thinning hair. Chronically ill appearing. Eyes: Perrla, EOMI Neck: Supple, no lymphedema, JVD or enlarged thyroid Heart: RRR, S1 S2 no galloups or murmurs. Resp: cough, non productive. LS diminished. Abd: thin, bS+x 4 Extremities: FROM; RUE with swelling, no clubbing, cyanosis Neuro: Confabulated ideas, weepy when not told what she wants to hear will manipulate conversation.
[2019-05-31] MEDS: LORazepam 0.5 MG TAB PO ×2 (14:34→19:23)
--- NOTE | 2019-05-31 14:40 | NUR.NOTE ---
pt admitted under swingbed for rehab.Nursing Note:
[2019-05-31 15:35] VITALS: BP 145/78
[2019-05-31 15:36] VITALS: BP 135/73; PULSE 112; RESP 18; TEMP 36.5; O2SAT 94
[2019-05-31] MEDS: Cilostazol 100 MG TAB PO (19:22)
[2019-05-31] MEDS: Pregabalin 25 MG CAP 75 MG PO (19:22)
[2019-05-31] MEDS: diphenhydrAMINE 25 MG CAP PO (19:23)
[2019-05-31] MEDS: Apixaban 5 MG TAB 10 MG PO (19:23)
[2019-05-31] MEDS: Magnesium Oxide 400 MG TAB 800 MG PO (19:24)
[2019-05-31 19:51] VITALS: BP 133/85; PULSE 110; RESP 18; TEMP 37.5; O2SAT 93
--- NOTE | 2019-05-31 20:19 | PDOC.CMPRO ---
- If Service Date Differs Date of service: 05/31/19 Time of Service: 20:19 Care Management Progress Note S/O: Kayla will be transitioned to SWB level 1 today to continue to work with PT/OT. She transitioned to oral apixaban for DVT in [facility]. She also transitioned to oral abx to continue to treat sepsis. PT recommended SNF placement, but Kayla was declined by the local facilities, therefore she will stay at [facility] for SWB1 for mobility and strength. CM will continue to follow. A: Kayla is a 58 year old female admitted to Swing bed level 1 to continue to work with PT/OT to strengthen prior to returning home. P: Kayla will transition to SWB level 1 today to continue to work with PT/OT prior to returning home. Palliative consult has been ordered. CM will check on LTM status in a few days as it was requested to be expedited. Once Kayla has reached her goals with PT/OT, CM will coordinate transportation home via [facility]. She will follow up with her PCP, as recommended. CM will continue to follow and support discharge planning considerations.
[2019-06-01 00:34] VITALS: BP 108/68; PULSE 107; RESP 16; TEMP 37.2; O2SAT 94
[2019-06-01] MEDS: Acetaminophen 325 MG TAB PO ×3 (00:43→19:46)
[2019-06-01] MEDS: Levothyroxine 100 MCG TAB PO (06:33)
[2019-06-01] MEDS: Omeprazole 20 MG CAPCR PO (08:02)
[2019-06-01] MEDS: Thiamine 100 MG TAB PO (08:02)
[2019-06-01] MEDS: Cilostazol 100 MG TAB PO ×2 (08:03→19:47)
[2019-06-01] MEDS: Apixaban 5 MG TAB 10 MG PO ×2 (08:03→19:47)
[2019-06-01] MEDS: Pregabalin 25 MG CAP 75 MG PO ×2 (08:03→19:46)
[2019-06-01] MEDS: amLODIPine 5 MG TAB 10 MG PO (08:03)
[2019-06-01] MEDS: Aspirin E.C. 81 MG TABEC PO (08:03)
[2019-06-01] MEDS: Magnesium Oxide 400 MG TAB 800 MG PO ×2 (08:03→19:46)
[2019-06-01] MEDS: LORazepam 0.5 MG TAB PO ×3 (08:03→19:46)
[2019-06-01] MEDS: Lisinopril 5 MG TAB PO (08:04)
[2019-06-01] MEDS: Cyanocobalamin 500 MCG TAB PO (08:04)
[2019-06-01] MEDS: Folic Acid 1 MG TAB PO (08:04)
[2019-06-01] MEDS: Multivitamin TAB 1 TAB PO (08:04)
[2019-06-01 08:52] VITALS: BP 121/66; PULSE 106; RESP 20; TEMP 37; O2SAT 92
--- NOTE | 2019-06-01 09:29 | PHARADMIT ---
Addendum entered by Rosi Dhaliwal 06/07/19 13:28: VS okay, no labs apixaban discontinued yesterday, no med changes so far today plan is for discharge home Sunday Addendum entered by Elijah Joseph III 06/05/19 14:20: VS-OK Lytes,SCr-OK (Patient requested that Lytes be drawn) Plan is for patient to be discharged home on Sunday. Addendum entered by Elijah Joseph III 06/04/19 11:53: VS-OK No Labs Nursing to check PVRs OT & PT discontinued as Patient is now Swing Bed Level II Nicotine Patch requested by patient and ordered CM working on possible discharge (later today) Addendum entered by Rosi Dhaliwal 06/02/19 17:52: no VS or labs multivitamin and lorazepam discontinued at baseline per PT, plan to discharge from PT in a few days per morning report CM note mentions possible discharge tomorrow? Addendum entered by Maya Mcgrath 06/01/19 09:30: pt transferred to swingbed status yesterday. cefodoxime tx complete working with PT/OT Original Note: ALESHA YIN Female : 1960 Emr# [id number] 05/29/19 15:44 - Pharmacy Review by Elijah Joseph III Acct Num: [id number] : 1960 Patient Age: 58 Addendum entered by Elijah Joseph III 05/30/19 11:01: VS-OK CIWA-7 HR-101 Labs-OK Patient declined by he [facility] to go to swing bed later today Original Note: Admission Pharmacy Clinical Review FAILURE TO THRIVE, WEAKNESS Code Status Full Code Current Weight Wgt-39.3 kg on CIWA protocol&Meds Renally Cleared and Narrow Therapeutic Index Meds CrCl~ 46.39 Meds-OK QTc Value / Action Taken QYc-[id number] in 04/01 (na) BP Control, Fever BP- 148/82 Tmax-37C Electrolytes reviewed Na-136 K+4.1 Mag-2.0 DVT Prophylaxis ASA, Heparin-SC, Pletal Opiate Usage / Scheduled Bowel Regimen Ordered No No Plt/SCr for Heparin / Enoxaparin Plts-286 SCr-0.47 INR for Warfarin na H/H stable, WBC/Bands H&H-9.2/27.4 WBC- 3.40 Antibiotic appropriateness Cefpodoxime PO Cultures and Sensitivities Flu & C-diff NEG, Blood NoGrowth/72hrs Surgical ABX d/c within 24 hr na DM control / Insulin Dosing BG-92 Heart Failure (Check EF%) (MERLENE's, B-Block, Diuretics) Norvasc, IV to PO Switch No Home Meds Reviewed Yes Home Meds Not Ordered Valsartan, Apixaban, Lidoderm, Comments R-CRP-3.44, Vancomycin DC'D Initialized on 05/29/19 15:44 - END OF NOTE
--- NOTE | 2019-06-01 12:48 | PT.INIE ---
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 She has been in inpatient PT service from 05/26/2019-05/31/2019. Due to her continued weakness, she continues to require rehabilitation at swing bed status to ensure safe return home. PMHX: Medical History Alcohol dependence (Chronic) drinking beer during visit; many empties around Arterial occlusive disease (Chronic Unknown) [place] [facility] [place]bilateral & moderate Colostomy in place (Chronic) wants this reversed as soon as [facility] surgery team agrees Continuous chewing tobacco dependence (Inactive 01/22/12) COPD (chronic obstructive pulmonary disease) (Suspected) not proven, requires outpatient PFTs CRPS 1, lower extremity (Acute) possible diagnosis Essential hypertension (Chronic 01/22/12) Foot pain, left (Chronic 12/04/16) Neuropathic vs. claudication Hyperlipidemia (Chronic 08/21/12) Hyperlipidemia (Chronic 08/21/12) Hypothyroidism (Chronic) Neuropathy (Chronic 12/07/16) left foot Palliative care patient (Acute) Unstable gait (Acute) walks with a walker Antalgic gait Wernicke-Korsakoff syndrome (Acute) Surgical History S/P colectomy (Acute 12/26/18) lap converted to open sigmoid colectomy w/ primary stapled anastomosis and diverting loop ileostomy Social History/Home Situation: Patient lives at alone in an apartment in [place], [place]. She states she is independent with all aspects of ADLs without assistive ambulatory devices nor adaptive equipment. She reports she has worked for a long time at [employer]. Equipment Owned/DME: None. Subjective: Patient is agreeable to a PT consult. Looking forward to exercise. Objective: General Observation: Found almost sleeping, lying in hospital bed. Alert when wakened, and happy to participate. Mental Status: Alert and oriented as to person and place. Unrealistic in regards to her capabilties. Pain: None reported ROM: Right Upper Extremity: Shoulder Flexion 0-80. Shoulder abduction 0-60. Elbow flexion WFL. Wrist flexion WFL. Functional opening and closing of hand WFL. Left Upper Extremity: Shoulder Flexion WFL. Shoulder abduction WFL. Elbow flexion WFL. Wrist flexion WFL. Functional opening and closing of hand WFL. Right Lower Extremity: Hip flexion WFL. Hip abduction WFL. Knee flexion WFL. Ankle dorsiflexion WFL. Ankle plantarflexion WFL. Left Lower Extremity: Hip flexion WFL. Hip abduction WFL. Knee flexion WFL. Ankle dorsiflexion WFL. Ankle plantarflexion WFL. STRENGTH: Right Upper Extremity: Shoulder flexors 4/5. Shoulder abductors 4/5. Elbow flexors 4+/5. Elbow extensors 4+/5. 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 Left Upper Extremity: Shoulder flexors 4/5. Shoulder abductors 4/5. Elbow flexors 4+/5. Elbow extensors 4+/5. 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 Right Lower Extremity:Hip flexors 4+/5. Hip abductors 4+/5. Knee flexors 4+/5. Knee extensors 5/5. Ankle dorsiflexors 4+/5. Ankle plantarflexors 5/5. Left Lower Extremity: Hip flexors 4+/5. Hip abductors 4+/5. Knee flexors 4+/5. Knee extensors 5/5. Ankle dorsiflexors 4+/5. Ankle plantar flexors 5/5. Sensation: Intact as to pain and pressure to B LE. BED MOBILITY LEVELS/TRANSFERS Supine to sit SBA, FWW Sit to supine SBA, FWW Sit to stand: SBA, FWW Stand to sit SBA, FWW Bed to chair SBA, FWW Chair to bed SBA, FWW Patient toileted with SBA, and rinsed hair in sink with SBA. Gait: SBA, FWW, steady and safe. 150 ft., frequency breaks needed. Balance: Static Sitting: Good Dynamic Sitting: Good Static Standing: Good Dynamic Standing: Fair Special Tests: Mobility Limitations Standardized Measure [facility] AM-PAC 6 clicks Basic Mobility Inpatient Short Form: 11% disability Informed Consent/Education: Patient instructed in purpose of PT consult and plan of care. Treatment: Eval, [place] the[place] ex. [id number], [id number] Assessment: Patient is a 58 year old female referred to physical therapy services with the diagnosis of weakness, following course of inpatient care for management of failure to thrive, hypomagnesemia, and chronic hyponatremia. Patient presents with clinical signs and symptoms consistent with referred diagnosis, as demonstrated by the following impairment level findings: generalized weakness and impaired balance with dynamic functional tasks. Impairments are contributing to the following functional limitations: AMPAC score of 11%. Primary concern is of deconditioned state and instability with higher level activities that would be required for return home. She is not safe to be home alone, due to her weakness. Requires skilled PT intervention to attend the above concerns. Patient is assessed as a x Low 57744 Moderate 64961 High 17028 complexity based on the following: History: See above social history and comorbidities Examination: See above impairments and functional imitations Presentation: Evolving Decision Making: Easy Goals: Goals X1 week 1. Supine-Sit independent 2. Sit-Supine independent 3. Sit-Stand independent 4. Stand-Sit independent 5. Bed-Chair independent 6. Chair-Bed independent 7. Gait 150 feet independent 8. Stairs 4, independent 9. Independent with home exercise program 10. Balance good with standing dynamic activities. Plan of Care/Treatment Plan: 1-2x/day, 7 days/week x 1 week. Plan of care has been reviewed with the [facility] providing the service under Physical Therapy direction. Initiate Physical Therapy intervention for strengthening, bed mobility, transfers, gait, stairs, balance training, use of assistive device. DISCHARGE RECOMMENDATIONS: Upon completion of above goals, home. She should continue with physical therapy intervention, either home health or outpatient based on transportation availability. TREATMENT CODE/TIME: 45 minutes, 79381, [id number]
[2019-06-01 15:40] VITALS: BP 118/74; PULSE 82; RESP 16; TEMP 37.1; O2SAT 95
[2019-06-01] MEDS: Calcium Carbonate *TUMS* 500 MG CHEW PO (19:46)
[2019-06-01] MEDS: Metoprolol 12.5 MG TAB PO (19:47)
[2019-06-01 20:08] VITALS: BP 133/72; PULSE 98; RESP 16; TEMP 37.1; O2SAT 94
[2019-06-01 23:45] VITALS: BP 120/73; PULSE 88; RESP 18; TEMP 36.3; O2SAT 95
[2019-06-02] MEDS: Levothyroxine 100 MCG TAB PO (05:09)
[2019-06-02] MEDS: Calcium Carbonate *TUMS* 500 MG CHEW PO ×3 (08:18→20:59)
[2019-06-02] MEDS: Pregabalin 25 MG CAP 75 MG PO ×2 (08:18→20:59)
[2019-06-02] MEDS: Aspirin E.C. 81 MG TABEC PO (08:18)
[2019-06-02] MEDS: Apixaban 5 MG TAB 10 MG PO ×2 (08:18→20:59)
[2019-06-02] MEDS: Metoprolol 12.5 MG TAB PO ×2 (08:19→20:59)
[2019-06-02] MEDS: Omeprazole 20 MG CAPCR PO (08:19)
[2019-06-02] MEDS: Cilostazol 100 MG TAB PO ×2 (08:19→20:59)
[2019-06-02] MEDS: Cyanocobalamin 500 MCG TAB PO (08:19)
[2019-06-02] MEDS: LORazepam 0.5 MG TAB PO ×2 (08:19→14:37)
[2019-06-02] MEDS: Lisinopril 5 MG TAB PO (08:19)
[2019-06-02] MEDS: Multivitamin TAB 1 TAB PO (08:19)
[2019-06-02] MEDS: Magnesium Oxide 400 MG TAB 800 MG PO ×2 (08:20→20:59)
--- NOTE | 2019-06-02 09:13 | OTIE_ITS ---
Occupational Therapy Notes Inpatient Occupational Therapy SWING BED 1 Evaluation Date: 06/02/19 Referring Doctor:Tiarra Cavanaugh NP OT Orders: Eval and treat Precautions: Contact/Fall PATIENT PROFILE/ADMITTING DIAGNOSIS: Pt is a 58 year old female admitted through the ER with c/o diarrhea, weakness, dehydration, failure to thrive, admitted on 05/25/2019 due to a mechanical fall. She was transitioned to [facility] bed 1 on 05/31/19. Patient states that she slid onto the floor from her chair. Patient was diagnosed with alcohol withdrawal, multiple wounds in B UE/LE, folate deficiency, and tobacco abuse. Pt been in and out of the hospital multiple times. Past Medical History: Medical History Alcohol dependence (Chronic) drinking beer during visit; many empties around Arterial occlusive disease (Chronic Unknown) ABIs [facility] [place]ascular 11/30/16--bilateral & moderate Colostomy in place (Chronic) wants this reversed as soon as [facility] surgery team agrees Continuous chewing tobacco dependence (Inactive 01/22/12) COPD (chronic obstructive pulmonary disease) (Suspected) not proven, requires outpatient PFTs CRPS 1, lower extremity (Acute) possible diagnosis Essential hypertension (Chronic 01/22/12) Foot pain, left (Chronic 12/04/16) Neuropathic vs. claudication Hyperlipidemia (Chronic 08/21/12) Hyperlipidemia (Chronic 08/21/12) Hypothyroidism (Chronic) Neuropathy (Chronic 12/07/16) left foot Palliative care patient (Acute) Unstable gait (Acute) walks with a walker Antalgic gait Wernicke-Korsakoff syndrome (Acute) Surgical History S/P colectomy (Acute 12/26/18) lap converted to open sigmoid colectomy w/ primary stapled anastomosis and diverting loop ileostomy Social History/Home Situation: Pt lives alone in an apartment at her baseline. She states that she does not use any devices for functional mobility. At Baseline pts ADLs are performed at the following level of function- Eating-(I) Grocery Shopping- Shops when she needs to, however states that she freezes all of her food and just eats it over the months. She states that she very rarely goes to get food. And only is able to make it to the grocery store if someone comes to visit her and has time to take her. Cooking- Microwave Sleeping-(I) Dressing- (I) UE, requires increased time with LE Bathing- Only has a bathtub no shower. She states its an old claw foot tub and she has not been able to perform this. Driving- Does not drive, states she walks everywhere or relies on others. Work- Previously worked at [employer] in [place] 3rd shift. Has had multiple dramatic experiences in the work place. She has not returned to her work demands since last admission to [facility]. Support- Pt states that she has very limited social support/family or friends. Reports that she only has 1 good friend Arlene that helps but is busy. Pets- A cat- pt reports that she has no idea if her cat is ok or not. Equipment owned/DME: Cane, grab bars SUBJECTIVE: Pt was sitting in bed when OT arrived. She reports that she is frustrated with how much she has been in the hospital. She notes that she would like to return to work and is emotional that she is unable to have as much salt as she would like. Pt states that right now she is worried about her rent, she does not have a phone at home to call anywhere but 911 and she states that she relies on others for rides and states that she can't call anyone if she runs out of food. Pt also states that she is confident that she will not be able to bath herself when she gets home due to her claw foot tub. This has been an ongoing issue for pt and she states that she doesn't feel that this will be an option for her. Pt also states that prior to admission she ran out of oil and only has 10 gallons in her tank which she feels will be gone by now. She reports that she has no money and doesn't know what she is going to do. OBJECTIVE: General Observation: Emotional, she was agreeable to OT session. Mental Status: A&Ox2 Pain: c/o pain in (B) feet. Strength: RUE Shoulder flexion 4-/5, elbow 3-/5, ventilating engineer 3+/5 L UE Shoulder flexion 4-/5, elbow 3+/5, ventilating engineer 3+/5 ROM: RUE AROM WNL LUE AROM WNL FUNCTIONAL MOBILITY/ADLS: Transfers Supine-sit (I) Sit-supine (I) BATHING Pt denies. She states that she performed this prior to OT arrival. She is able to demonstrate ideal ROM with min vc. DRESSING Dressing UE NT Dressing LE (I) don and doff (B) socks sitting on side of bed. GROOMING Pt able to (I) brush hair, pt does not have teeth for teeth brushing. TOILETING pt utilizes commode with (S). BALANCE: Static sitting Normal Dynamic Sitting Good INFORMED CONSENT/EDUCATION: Pt instructed in purpose of OT Consult and plan of care. ASSESSMENT: Patient is a 58-year-old female referred to occupational therapy services with diagnosis of complaints of diarrhea, weakness, dehydration, failure to thrive admitted on 05/25/2019 due to a mechanical fall. Pt was transitioned to Swing bed on 05/31/19. Patient presents with clinical signs and symptoms consistent with dx, as demonstrated by the following impairment level findings: decreased functional activity tolerance, decreased functional mobility, decreased safety awareness, pain in (B) feet and UE. Impairments are contributing to the following functional limitations: decreased functional activity tolerance, unable to perform ADLs safely in her home set up, decreased supports for ability to thrive in home environment. Patient is assessed as a Low 90620 complexity based on the following: History: See Above Examination: See Above Presentation: Evolving Decision Making: Low complexity based on examination GOALS Goals x1 week 1. Transfers FWW (S) 3. Bathing (I) standing at sink for (B) UE, face and abdomen 4. Toileting (I) on toilet PLAN OF CARE/TREATMENT PLAN: 1x/day, 5 days/ week x 1week Initiate Occupational Therapy Services for bathing, dressing, grooming, toileting, eating, transfer training. DISCHARGE RECOMMENDATIONS Based on pts current functional status, OT recommends SNF due to pts decreased safety awareness and generalized weakness affecting her ADLs/IADLs vs. home with increased HH services. TREATMENT TIME/MINUTES/CODES [id number] 30 minutes (08:40) Jane Gomez OTR/[facility]
--- NOTE | 2019-06-02 12:35 | PT.INTREAT ---
Date of service: 06/02/19 Time of Service: 12:36 PT Notes Visit Reasons: UNSTEADY GAIT, DVT, AMBULATORY DYSFUNCTION Inpatient Physical Therapy Treatment Note [facility] Date: 06/02/19 PRECAUTIONS: Fall SUBJECTIVE: Kayla is pleasant and agreeable to participating in PT. OBJECTIVE: PAIN: No c/o pain BED MOBILITY/TRANSFERS Supine-sit: I Sit-supine: I Sit-stand: I Stand-sit: I GAIT Assistive Device: FWW Weight bearing: Full Assist: S Distance: 300' in a.m.; 500' in p.m. Deviation: Standing ball toss with 2# medball with gait training x15 minutes in a.m. THEREX: Patient completed a global strengthening program, in a standing position, utilizing 2# medball, as per flow sheet. Patient requires supervision with all standing exercises and strengthening activities. STAIRS: Up/down 6x4 and 4x6 using B rails and a step-over pattern, independently. ASSESSMENT: Patient tolerated a progression in gait training, tolerating the addition of static balance activities with dynamic UE movements using weighted medball throughout gait training, demonstrating normal static standing balance. PLAN: Continue with PT's POC TREATMENT CODE/TIME: Session 1: 40 minutes; 34004 x2, [id number] Session 2: 30 minutes; 79111 x2
--- NOTE | 2019-06-02 14:53 | NUR.NOTE ---
Addendum entered and electronically signed by Juan Solitario 06/02/19 18:21: Within the same conversation , she was reminded that she was scoring on the CIWA , and that she was receiving the ativan at this time to help with the symptoms she was having. She denied ever having symptoms, and if she did it was because she was in the hospital., Original Note: Nursing Note: . patient asked me what the ativan was being ordered for. It was explained to her that this was to help her with the symptoms that she had been having She did not like this, and was adamant that she didn't have a problem. i offered to waste it for her. She declined. but stated that she did not want any further ordered. Ramila reyes was made aware and wi9ll dc the order. She further stated she was leaving the area after discharge
--- NOTE | 2019-06-02 17:34 | PDOC.CMPRO ---
- If Service Date Differs Date of service: 06/02/19 Time of Service: 17:34 Care Management Progress Note S/O: Kayla is lying in bed when CM comes to meet with her. She is upset over having been told by the provider that she is being discharged home tomorrow. She refuses to sign the swing bed admission agreement and says she is too upset to sign anything. She expresses concerns over not having any heat or electricity in her apartment and not having any food at home. When CM offers to call her friend, Babita, to ask her to check on the power and heat at her apartment, Kayla replies good luck getting a hold of her. She provides a phone number for Babita but the number is not correct. CM will continue to follow and will again ask patient to sign the swing bed admission agreement tomorrow. A: Kayla is a 58 year old female admitted to [facility] for weakness. P: Kayla will be discharged home when medically cleared by provider with resumption of HH SN, OT, and SIMULATION SOFTWARE ENGINEER. Choices for [facility] - highest needs application is pending. CM will coordinate transportation home via [facility]. CM will continue to follow and support discharge planning needs.
[2019-06-02] MEDS: diphenhydrAMINE 25 MG CAP PO (18:33)
[2019-06-02 21:02] VITALS: BP 122/68; PULSE 94; RESP 20; TEMP 37; O2SAT 97
[2019-06-03] MEDS: Levothyroxine 100 MCG TAB PO (05:58)
[2019-06-03] MEDS: Cilostazol 100 MG TAB PO ×2 (08:49→20:10)
[2019-06-03] MEDS: Apixaban 5 MG TAB 10 MG PO ×2 (08:51→20:10)
[2019-06-03] MEDS: Magnesium Oxide 400 MG TAB 800 MG PO ×2 (08:51→20:11)
[2019-06-03] MEDS: Pregabalin 25 MG CAP 75 MG PO ×2 (08:52→20:10)
[2019-06-03] MEDS: Metoprolol 12.5 MG TAB PO ×2 (08:52→20:11)
[2019-06-03] MEDS: Aspirin E.C. 81 MG TABEC PO (08:53)
[2019-06-03] MEDS: Lisinopril 5 MG TAB PO (08:54)
[2019-06-03] MEDS: Cyanocobalamin 500 MCG TAB PO (08:54)
--- NOTE | 2019-06-03 09:09 | OT.INTREAT ---
Date of service: 06/03/19 Time of Service: 08:00 Occupational Therapy Notes Occupational Therapy Inpatient Treatment Note Date: 06/03/19 PRECAUTIONS: Fall, Standard SUBJECTIVE: Pt is sitting in bed when OT arrived. She states that she is scared to go home and has some questions. OBJECTIVE: PAIN:no c/o pain FUNCTIONAL MOBILITY Supine-sit: (S) Sit-supine: (S) Sit-stand: (S) Stand-sit: (S) Therapeutic Activities [id number]: OT and pt discuss energy conservation techniques in kitchen environment. Pt is worried about boiling water, excessive bending and if she has food when she gets home. OT and pt discuss the importance of respecting her pain, demonstrating ideal body mechanics with functional mobility and placing frequently used objects on the counter. Pt states that her home is messy and she has beer cans throughout which she saves to cheney in. OT educates pt on making sure that she plans her movement ahead of time and to limit any extra walking that she may not need to perform. Pt is receptive to this and OT discusses with pt how to efficiently move throughout her kitchen without making extra work. PLAN: Re-evaluate pt for goals established and assessment of pts needs. TREATMENT CODES/TIME: [id number], 10 minutes (08:00) Jane Gomez OTR/[facility]
[2019-06-03 11:20] VITALS: BP 137/76; PULSE 93; RESP 18; TEMP 37.2; O2SAT 94
--- NOTE | 2019-06-03 12:44 | PT.INTREAT ---
Date of service: 06/03/19 Time of Service: 09:56 PT Notes Visit Reasons: UNSTEADY GAIT, DVT, AMBULATORY DYSFUNCTION Inpatient Physical Therapy Treatment Note [facility] Date: 06/03/2019 PRECAUTIONS: Standard. Fall. Activity as tolerated. SUBJECTIVE: Pt reports that she needs a shower. She notes that she has two walkers at home that she does not use as it is too difficult to move them around the apartment. OBJECTIVE: ostomy in place PAIN: 0/10 BED MOBILITY/TRANSFERS Rolling L/R: independent Supine-sit: independent Sit-supine: independent Sit-stand: independent Stand-sit: independent Bed-Chair: independent Chair-bed: independent Toileting: independent GAIT: Pt was able to ambulate 250 feet using a FWW with supervision by PT and PT student. Step through gait pattern. VITALS: NT ASSESSMENT: Pt continues to be able to ambulate using a front wheeled walker without difficulty. She often stops walking in the hallway and becomes distracted while letting go of handheld support. Pt may benefit from practice without a less restrictive assistive device. She would continue to benefit from skilled physical therapy at this time. PLAN: Continue with established POC. TREATMENT CODE/TIME: 31670 x1, 00780 x1, 35 minutes beginning at 9:10 A.M. Zack Avila SPT Doctor of Physical Therapy Student [facility] Supervision provided by: Kenia Saba PT, DPT, CLT [facility] [place], [place]
[2019-06-03 15:40] VITALS: BP 119/70; PULSE 89; RESP 18; TEMP 37.1; O2SAT 94
[2019-06-03] MEDS: Calcium Carbonate *TUMS* 500 MG CHEW PO (17:56)
--- NOTE | 2019-06-03 18:11 | CMSA_ITS ---
- If Service Date Differs Date of service: 06/03/19 Time of Service: 18:11 SB Psychosocial/Act.Assessment - Hospital Admission Admission Date: 05/31/19 Admission From:: [facility] Diagnosis:: Ambulatory dysfunction - Swing Bed Admission Swing Bed Level of Care: Level 1/SNF - Social Supports PREVIOUS FUNCTIONAL STATUS/SOCIAL/FAMILY SUPPORTS:: Susanne lives alone in a first floor apt. in [place]. She has been failing for some time without successful community intervention. She is no longer able to safely care for herself, as evidenced by multiple pressure sores and unkept condition present on last admission. 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 - Prior to Admission Living Arrangements/Environment Prior to Admission:: Susanne lives alone in an apartment in [place]. She has not worked in over a year but feels she is still employed by [employer] in [place]. - Education Highest Grade Completed:: 2 years of college Where did you attend School:: [employer] - Work History Employment Status:: Susanne has been on medical leave since 04/2018 at [employer] - [place]: No - Islam Active Scientologist Member:: No - Advance Directives for Healthcare If no AD, do you want more information:: No - Interests Sports:: enjoys shooting a gun Music:: country and oldies from the 1950s and 60's TV/Movies:: likes but working nights did not have much opportunity Outdoor Activities:: hiking/walking in the [place] Reading:: enjoys books focused on legal matters Other Activities:: would like to spend time in a courtroom observing the proceedings - Present Functional Status Physical Abilities:: weak but able to ambulate and perform ADLs Cognitive:: alert and oriented but forgetful Communication:: good verbal skills, although embellishes at times Sensory Systems: no glasses or hearing aides; appears edentulous. - Medical History PAST MEDICAL HISTORY/PAST SURGICAL HISTORY:: Medical History : Alcohol dependence (Chronic). drinking beer during visit; many empties around. Arterial occlusive disease (Chronic Unknown). ABIs [facility] [place] [facility] --bilateral & moderate. Colostomy in place (Chronic). wants this reversed as soon as [facility] surgery team agrees. Continuous chewing tobacco dependence (Inactive 01/22/12). COPD (chronic obstructive pulmonary disease) (Suspected). not proven, requires outpatient PFTs. CRPS 1, lower extremity (Acute). possible diagnosis. Essential hypertension (Chronic 01/22/12). Foot pain, left (Chronic 12/04/16). Neuropathic vs. claudication. Hyperlipidemia (Chronic 08/21/12). Hyperlipidemia (Chronic 08/21/12). Hypothyroidism (Chronic). Neuropathy (Chronic 12/07/16). left foot. Palliative care patient (Acute). Unstable gait (Acute). walks with a walker. antalgic gait. Wernicke-Korsakoff syndrome (Acute). Surgical History: S/P colectomy (Acute 12/26/18). lap converted to open sigmoid colectomy w/ primary stapled anastomosis and diverting loop ileostomy General Health:: poor - Admission Data Reason for Swing Bed Admission:: Susanne requires strengthening before she is able to return [facility] and care for herself. No area SNFs were able to offer Susanne a bed so she will remain in SB! or 2 status until she is stronger and more independent. Discharge Plan:: Susanne will likely be discharged home with a resumption of services. She will follow up with her PCP and discharge plan of care. CM will c ontinue to support Susanne and her discharge planning needs. Assessment: susanne will remain in SB1 or 2 status until strong enough to resume self care at [facility]. She is receiving PT at this time. Sales And Marketing Engineer: Vika Rivera Date Assessment was completed:: 06/03/19
--- NOTE | 2019-06-03 18:29 | CMSCP_ITS ---
- If Service Date Differs Date of service: 06/03/19 Time of Service: 18:29 Swingbed Plan of Care Plan of care: SWING BED PROGRAM ACTIVITIES/DISCHARGE PLAN OF CARE ACTIVITIES PLAN Date: 06/03/2019 Identified Need:individualized activity plan Intervention/Plan:Kayla enjoys watching tv and visiting with staff. She also enjoys reading and will be offered with reading option as well as pet therapy and reiki when available. Initials [facility] DISCHARGE PLAN Date: 06/03/2019 Identified Need: Safe discharge plan to return to the community Intervention/Plan: Kayla will have a resumption of nursing, PT/OT and [facility] as well as new Meals on Wheels. She will follow up with her PCP and discharge plan of care. Initials [facility]
[2019-06-03] MEDS: Ondansetron O.D.T. 4 MG TABEF PO (18:54)
[2019-06-03] MEDS: diphenhydrAMINE 25 MG CAP PO (23:53)
[2019-06-03] MEDS: Acetaminophen 325 MG TAB PO (23:54)
[2019-06-04 00:26] VITALS: BP 124/64; PULSE 85; RESP 19; TEMP 36.8; O2SAT 93
[2019-06-04] MEDS: Levothyroxine 100 MCG TAB PO (06:27)
[2019-06-04 07:39] VITALS: BP 131/74; PULSE 74; RESP 18; TEMP 36.8; O2SAT 95
--- NOTE | 2019-06-04 08:25 | OT.INDS ---
Date of service: 06/04/19 Time of Service: 08:25 Occupational Therapy Notes Occupational Therapy Inpatient Discharge Summary Date: [] Dates of Service: [] Date: 06/02/19 Referring Doctor:Tiarra Cavanaugh NP OT Orders: Eval and treat Precautions: Contact/Fall PATIENT PROFILE/ADMITTING DIAGNOSIS: Pt is a 58 year old female admitted through the ER with c/o diarrhea, weakness, dehydration, failure to thrive, admitted on 05/25/2019 due to a mechanical fall. She was transitioned to [facility] bed 1 on 05/31/19. Patient states that she slid onto the floor from her chair. Patient was diagnosed with alcohol withdrawal, multiple wounds in B UE/LE, folate deficiency, and tobacco abuse. Pt been in and out of the hospital multiple times. Past Medical History: Medical History Alcohol dependence (Chronic) drinking beer during visit; many empties around Arterial occlusive disease (Chronic Unknown) [place] [facility] [place] 11/30/16--bilateral & moderate Colostomy in place (Chronic) wants this reversed as soon as [facility] surgery team agrees Continuous chewing tobacco dependence (Inactive 01/22/12) COPD (chronic obstructive pulmonary disease) (Suspected) not proven, requires outpatient PFTs CRPS 1, lower extremity (Acute) possible diagnosis Essential hypertension (Chronic 01/22/12) Foot pain, left (Chronic 12/04/16) Neuropathic vs. claudication Hyperlipidemia (Chronic 08/21/12) Hyperlipidemia (Chronic 08/21/12) Hypothyroidism (Chronic) Neuropathy (Chronic 12/07/16) left foot Palliative care patient (Acute) Unstable gait (Acute) walks with a walker Antalgic gait Wernicke-Korsakoff syndrome (Acute) Surgical History S/P colectomy (Acute 12/26/18) lap converted to open sigmoid colectomy w/ primary stapled anastomosis and diverting loop ileostomy Social History/Home Situation: Pt lives alone in an apartment at her baseline. She states that she does not use any devices for functional mobility. At Baseline pts ADLs are performed at the following level of function- Eating-(I) Grocery Shopping- Shops when she needs to, however states that she freezes all of her food and just eats it over the months. She states that she very rarely goes to get food. And only is able to make it to the grocery store if someone comes to visit her and has time to take her. Cooking- Microwave Sleeping-(I) Dressing- (I) UE, requires increased time with LE Bathing- Only has a bathtub no shower. She states its an old claw foot tub and she has not been able to perform this. Driving- Does not drive, states she walks everywhere or relies on others. Work- Previously worked at [employer] in [place] 3rd shift. Has had multiple dramatic experiences in the work place. She has not returned to her work demands since last admission to [facility]. Support- Pt states that she has very limited social support/family or friends. Reports that she only has 1 good friend Arlene that helps but is busy. Pets- A cat- pt reports that she has no idea if her cat is ok or not. Equipment owned/DME: Cane, grab bars SUBJECTIVE: Pt was sitting in bed when OT arrived. She reports that she is frustrated with how much she has been in the hospital. She notes that she would like to return to work and is emotional that she is unable to have as much salt as she would like. Pt states that right now she is worried about her rent, she does not have a phone at home to call anywhere but 911 and she states that she relies on others for rides and states that she can't call anyone if she runs out of food. Pt also states that she is confident that she will not be able to bath herself when she gets home due to her claw foot tub. This has been an ongoing issue for pt and she states that she doesn't feel that this will be an option for her. Pt also states that prior to admission she ran out of oil and only has 10 gallons in her tank which she feels will be gone by now. She reports that she has no money and doesn't know what she is going to do. OBJECTIVE: General Observation: Emotional, she was agreeable to OT session. Mental Status: A&Ox2 Pain: c/o pain in (B) feet. Strength: RUE Shoulder flexion 4-/5, elbow 3-/5, executive meeting manager 3+/5 L UE Shoulder flexion 4-/5, elbow 3+/5, executive meeting manager 3+/5 ROM: RUE AROM WNL LUE AROM WNL FUNCTIONAL MOBILITY/ADLS: Transfers Supine-sit (I) Sit-supine (I) BATHING Pt denies. She states that she performed this prior to OT arrival. She is able to demonstrate ideal ROM with min vc. DRESSING Dressing UE NT Dressing LE (I) don and doff (B) socks sitting on side of bed. GROOMING Pt able to (I) brush hair, pt does not have teeth for teeth brushing. TOILETING pt utilizes commode with (S). BALANCE: Static sitting Normal Dynamic Sitting Good INFORMED CONSENT/EDUCATION: Pt instructed in purpose of OT Consult and plan of care. ASSESSMENT: Patient is a 58-year-old female referred to occupational therapy services with diagnosis of complaints of diarrhea, weakness, dehydration, failure to thrive admitted on 05/25/2019 due to a mechanical fall. Pt was transitioned to Swing bed on 05/31/19. Patient presents with clinical signs and symptoms consistent with dx, as demonstrated by the following impairment level findings: decreased functional activity tolerance, decreased functional mobility, decreased safety awareness, pain in (B) feet and UE. Impairments are contributing to the following functional limitations: decreased functional activity tolerance, unable to perform ADLs safely in her home set up, decreased supports for ability to thrive in home environment. Patient is assessed as a Low 90851 complexity based on the following: History: See Above Examination: See Above Presentation: Evolving Decision Making: Low complexity based on examination GOALS 1. Transfers FWW (S) 3. Bathing (I) standing at sink for (B) UE, face and abdomen 4. Toileting (I) on toilet PLAN OF CARE/TREATMENT PLAN: Pt was transitioned to [facility] bed 2 and was not able to DISCHARGE RECOMMENDATIONS Based on pts current functional status, OT recommends SNF due to pts decreased safety awareness and generalized weakness affecting her ADLs/IADLs vs. home with increased HH services. TREATMENT TIME/MINUTES/CODES N/A Jane Gomez, OTR/L [facility]
[2019-06-04] MEDS: Cilostazol 100 MG TAB PO ×2 (08:28→21:03)
[2019-06-04] MEDS: Apixaban 5 MG TAB 10 MG PO ×2 (08:29→21:03)
[2019-06-04] MEDS: Lisinopril 5 MG TAB PO (08:29)
[2019-06-04] MEDS: Metoprolol 12.5 MG TAB PO ×2 (08:29→21:02)
[2019-06-04] MEDS: Aspirin E.C. 81 MG TABEC PO (08:29)
[2019-06-04] MEDS: Magnesium Oxide 400 MG TAB 800 MG PO ×2 (08:30→21:03)
[2019-06-04] MEDS: Cyanocobalamin 500 MCG TAB PO (08:30)
--- NOTE | 2019-06-04 09:16 | OTDS_ITS ---
Date of service: 06/04/19 Time of Service: 09:16 Occupational Therapy Notes Occupational Therapy Inpatient Discharge Summary Date: 06/04/19 Dates of Service: 06/02/19-06/04/19 Referring Doctor:Tiarra Cavanaugh NP OT Orders: Eval and treat Precautions: Contact/Fall PATIENT PROFILE/ADMITTING DIAGNOSIS: Pt is a 58 year old female admitted through the ER with c/o diarrhea, weakness, dehydration, failure to thrive, admitted on 05/25/2019 due to a mechanical fall. She was transitioned to [facility] bed 1 on . Patient states that she slid onto the floor from her chair. Patient was diagnosed with alcohol withdrawal, multiple wounds in B UE/LE, folate deficiency, and tobacco abuse. Pt been in and out of the hospital multiple times. Past Medical History: Medical History Alcohol dependence (Chronic) drinking beer during visit; many empties around Arterial occlusive disease (Chronic Unknown) ABIs [facility] 11/30/16--bilateral & moderate Colostomy in place (Chronic) wants this reversed as soon as [facility] surgery team agrees Continuous chewing tobacco dependence (Inactive 01/22/12) COPD (chronic obstructive pulmonary disease) (Suspected) not proven, requires outpatient PFTs CRPS 1, lower extremity (Acute) possible diagnosis Essential hypertension (Chronic 01/22/12) Foot pain, left (Chronic 12/04/16) Neuropathic vs. claudication Hyperlipidemia (Chronic 08/21/12) Hyperlipidemia (Chronic 08/21/12) Hypothyroidism (Chronic) Neuropathy (Chronic 12/07/16) left foot Palliative care patient (Acute) Unstable gait (Acute) walks with a walker Antalgic gait Wernicke-Korsakoff syndrome (Acute) Surgical History S/P colectomy (Acute 12/26/18) lap converted to open sigmoid colectomy w/ primary stapled anastomosis and diverting loop ileostomy Social History/Home Situation: Pt lives alone in an apartment at her baseline. She states that she does not use any devices for functional mobility. At Baseline pts ADLs are performed at the following level of function- Eating-(I) Grocery Shopping- Shops when she needs to, however states that she freezes all of her food and just eats it over the months. She states that she very rarely goes to get food. And only is able to make it to the grocery store if someone comes to visit her and has time to take her. Cooking- Microwave Sleeping-(I) Dressing- (I) UE, requires increased time with LE Bathing- Only has a bathtub no shower. She states its an old claw foot tub and she has not been able to perform this. Driving- Does not drive, states she walks everywhere or relies on others. Work- Previously worked at [employer] in [place] 3rd shift. Has had multiple dramatic experiences in the work place. She has not returned to her work demands since last admission to [facility]. Support- Pt states that she has very limited social support/family or friends. Reports that she only has 1 good friend Arlene that helps but is busy. Pets- A cat- pt reports that she has no idea if her cat is ok or not. Equipment owned/DME: Cane, grab bars SUBJECTIVE: NT This document serves as a summary of care, no skilled OT services provided for this documentation. OBJECTIVE: Strength: RUE Shoulder flexion 4-/5, elbow 3-/5, voice writing reporter 3+/5 L UE Shoulder flexion 4-/5, elbow 3+/5, voice writing reporter 3+/5 ROM: RUE AROM WNL LUE AROM WNL FUNCTIONAL MOBILITY/ADLS: Transfers Supine-sit (I) Sit-supine (I) Sit0-stand (S) Stand-sit (S) BATHING- Pt at last session was able to perform this (I) with min (A) set up. She has ideal ROM and good technique. DRESSING Dressing UE (I) don and doffing hospital gown Dressing LE (I) don and doff (B) socks sitting on side of bed. GROOMING Pt able to (I) brush hair, pt does not have teeth for teeth brushing. TOILETING pt utilizes commode with (S) for functional mobility but is (I). BALANCE: Static sitting Normal Dynamic Sitting Good ASSESSMENT: Patient is a 58-year-old female referred to occupational therapy services with diagnosis of complaints of diarrhea, weakness, dehydration, failure to thrive admitted on 05/25/2019 due to a mechanical fall. Pt was transitioned to Swing bed on 05/31/19. Pt was transitioned to SWG bed 2 on 06/03/19. Pt has met an ideal level of function per pts baseline. OT will plan to discharge pt from skilled OT services at this time. GOALS 1. Transfers FWW (S)- met 3. Bathing (I) standing at sink for (B) UE, face and abdomen- met 4. Toileting (I) on toilet- pt utilizes the commode she notes that she cannot make it to the toilet in time. PLAN OF CARE/TREATMENT PLAN: Pt transitioned to SWG bed 2 as of 06/03/19. OT will formally discharge pt from this time as pt has met a plateau in her level of improvement for function. DISCHARGE RECOMMENDATIONS Based on pts current functional status, OT recommends SNF due to pts decreased safety awareness and generalized weakness affecting her ADLs/IADLs vs. home with increased HH services. TREATMENT TIME/MINUTES/CODES N/A Jane Gomez OTR/L [facility]
[2019-06-04] MEDS: Nicotine 14 MG/24 HR PATCH TD (12:44)
[2019-06-04] MEDS: Acetaminophen 325 MG TAB PO ×2 (13:04→21:15)
--- NOTE | 2019-06-04 15:37 | CHAPLAIN ---
Kayla was very talkative this afternoon, and happy to tell me that she allowed to have salt again. She felt the salt restriction ordered by the doctor would adversely affect her. Kayla said she believes it is time for her to go home, but that she is also scared about going home, but wasn't able to explain why. 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 And that is her plan for now, she said. It doesn't matter how scientology you are, how rich you are, how important you are, if you're not happy, she said. She explained that she is trying to take her own advice and hopes to be home and taking care of herself, and working again, but June 13. I don't know if this is a realistic goal for her.
[2019-06-04 15:53] VITALS: BP 129/71; PULSE 82; RESP 18; TEMP 36.3; O2SAT 94
--- NOTE | 2019-06-04 17:51 | PDOC.CMPRO ---
- If Service Date Differs Date of service: 06/04/19 Time of Service: 17:51 Care Management Progress Note Kayla was very upset this morning and stated that she wanted to go home today. When CM met with her she shared that she was just frustrated with her low salt diet and the fact that she was not included in the decision making process. She stated she knows she is not ready today but wants to go home in a few days, possibly Sunday. Honey Roberts, Options Counselor for [facility], met with Kayla . They will reconnect when Kyala has been discharged. Kayla's provider changed her diet order to regular today so Kayla is again happy with her meals. CM will continue to follow and support Kayla and her discharge needs.
[2019-06-04] MEDS: Ondansetron O.D.T. 4 MG TABEF PO (18:28)
[2019-06-04] MEDS: Pregabalin 25 MG CAP 75 MG PO (21:02)
[2019-06-04] MEDS: Calcium Carbonate *TUMS* 500 MG CHEW PO (21:02)
[2019-06-04] MEDS: diphenhydrAMINE 25 MG CAP PO (21:15)
[2019-06-04 22:19] VITALS: BP 141/72; PULSE 84; RESP 18; TEMP 36.7; O2SAT 94
[2019-06-05] MEDS: Levothyroxine 100 MCG TAB PO (05:46)
[2019-06-05] MEDS: Pregabalin 25 MG CAP 75 MG PO ×2 (08:10→20:10)
[2019-06-05] MEDS: Lisinopril 5 MG TAB PO (08:11)
[2019-06-05] MEDS: Magnesium Oxide 400 MG TAB 800 MG PO ×2 (08:11→20:10)
[2019-06-05] MEDS: Apixaban 5 MG TAB 10 MG PO ×2 (08:11→20:11)
[2019-06-05] MEDS: Cilostazol 100 MG TAB PO ×2 (08:12→20:18)
[2019-06-05] MEDS: Calcium Carbonate *TUMS* 500 MG CHEW PO ×3 (08:12→20:11)
[2019-06-05] MEDS: Metoprolol 12.5 MG TAB PO ×2 (08:13→20:10)
[2019-06-05] MEDS: Omeprazole 20 MG CAPCR PO (08:13)
[2019-06-05] MEDS: Cyanocobalamin 500 MCG TAB PO (08:14)
[2019-06-05] MEDS: Aspirin E.C. 81 MG TABEC PO (08:14)
--- NOTE | 2019-06-05 09:15 | NUR.NOTE ---
pt refused to have her bed and chair alarms, it was explained to her it was for safety purposes so that someone can assist her while ambulating. She still refused Nursing Note:
[2019-06-05 09:57] VITALS: BP 109/66; PULSE 80; RESP 18; TEMP 37.1; O2SAT 95
--- NOTE | 2019-06-05 10:23 | INDS_ITS ---
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 Swing bed status after being found down on ground by home health nurse. She has been in inpatient PT service from 05/26/2019-05/31/2019. Due to her continued weakness, she continues to require rehabilitation at swing bed status to ensure safe return home. PMHX: Medical History Alcohol dependence (Chronic) drinking beer during visit; many empties around Arterial occlusive disease (Chronic Unknown) ABIs [facility] 11/30/16--bilateral & moderate Colostomy in place (Chronic) wants this reversed as soon as [facility] surgery team agrees Continuous chewing tobacco dependence (Inactive 01/22/12) COPD (chronic obstructive pulmonary disease) (Suspected) not proven, requires outpatient PFTs CRPS 1, lower extremity (Acute) possible diagnosis Essential hypertension (Chronic 01/22/12) Foot pain, left (Chronic 12/04/16) Neuropathic vs. claudication Hyperlipidemia (Chronic 08/21/12) Hyperlipidemia (Chronic 08/21/12) Hypothyroidism (Chronic) Neuropathy (Chronic 12/07/16) left foot Palliative care patient (Acute) Unstable gait (Acute) walks with a walker Antalgic gait Wernicke-Korsakoff syndrome (Acute) Surgical History S/P colectomy (Acute 12/26/18) lap converted to open sigmoid colectomy w/ primary stapled anastomosis and diverting loop ileostomy Social History/Home Situation: Patient lives at alone in an apartment in [place], [place]. She states she is independent with all aspects of ADLs without assistive ambulatory devices nor adaptive equipment. She reports she has worked for a long time at [employer]. Equipment Owned/DME: None. Subjective: NT Objective: General Observation: NT Mental Status: NT Pain: NT ROM: Right Upper Extremity: Shoulder Flexion 0-80. Shoulder abduction 0-60. Elbow flexion WFL. Wrist flexion WFL. Functional opening and closing of hand WFL. Left Upper Extremity: Shoulder Flexion WFL. Shoulder abduction WFL. Elbow flexion WFL. Wrist flexion WFL. Functional opening and closing of hand WFL. Right Lower Extremity: Hip flexion WFL. Hip abduction WFL. Knee flexion WFL. Ankle dorsiflexion WFL. Ankle plantarflexion WFL. Left Lower Extremity: Hip flexion WFL. Hip abduction WFL. Knee flexion WFL. Ankle dorsiflexion WFL. Ankle plantarflexion WFL. STRENGTH: Right Upper Extremity: Shoulder flexors 4/5. Shoulder abductors 4/5. Elbow flexors 4+/5. Elbow extensors 4+/5. Chair Mender strong. Left Upper Extremity: Shoulder flexors 4/5. Shoulder abductors 4/5. Elbow flexors 4+/5. Elbow extensors 4+/5. Chair Mender strong. Right Lower Extremity:Hip flexors 4+/5. Hip abductors 4+/5. Knee flexors 4+/5. Knee extensors 5/5. Ankle dorsiflexors 4+/5. Ankle plantarflexors 5/5. Left Lower Extremity: Hip flexors 4+/5. Hip abductors 4+/5. Knee flexors 4+/5. Knee extensors 5/5. Ankle dorsiflexors 4+/5. Ankle plantar flexors 5/5. Sensation: Intact as to pain and pressure to B LE. BED MOBILITY LEVELS/TRANSFERS Supine to sit independent Sit to supine independent Sit to stand: independent Stand to sit independent Bed to chair independent Chair to bed independent Gait: Supervision at 250 feet with FWW, step through. Denies pain. No LOB. Balance: Static Sitting: Normal Dynamic Sitting: Normal Static Standing: Normal Dynamic Standing: Good Assessment: Patient is a 58 year old female referred to physical therapy services with the diagnosis of weakness, following course of inpatient care for management of failure to thrive, hypomagnesemia, and chronic hyponatremia. Patient demonstrated return to prior level of function using her FWW. She is now at her highest functional level and requires no further skilled services in this setting. Goals: Goals X1 week 1. Supine-Sit independent MET 2. Sit-Supine independent MET 3. Sit-Stand independent MET 4. Stand-Sit independent MET 5. Bed-Chair independent MET 6. Chair-Bed independent MET 7. Gait 150 feet independent NOT MET 8. Stairs 4, independent MET 9. Independent with home exercise program MET 10. Balance good with standing dynamic activities. MET Plan of Care/Treatment Plan: 1-2x/day, 7 days/week x 1 week. Plan of care has been reviewed with the FAMILY SERVICES SPECIALIST providing the service under Physical Therapy direction. Initiate Physical Therapy intervention for strengthening, bed mobility, transfers, gait, stairs, balance training, use of assistive device. DISCHARGE RECOMMENDATIONS: Upon completion of above goals, home. She should continue with physical therapy intervention, either home health or outpatient based on transportation availability. O equipment needs at this time. TREATMENT CODE/TIME: NC. Thank you very much for this referral. Kenia Saba PT, DPT, CLT [facility] Inpatient PT at [facility]
[2019-06-05 12:14] LABS: Anion Gap 6.5 mmol/L (3-11); BUN 19 mg/dL (7-18); CO2 30.5 mmol/L (21.0-32.0); CREATININE 0.49 mg/dL (0.55-1.02); Calcium 9.2 mg/dL (8.5-10.1); Chloride 99 mmol/L (98-107); Glucose 93 mg/dL (74-106); Magnesium 1.9 mg/dL (1.8-2.4); Potassium 4.8 mmol/L (3.5-5.1); Sodium 136 mmol/L (136-145)
--- NOTE | 2019-06-05 15:08 | CHAPLAIN ---
Kayla said she is both excited and scared about being discharged soon. When I asked what was scaring her, she asked that we not talk about it. Later she said she is unsure what kind of shape her apartment is in and doesn't know what she'll find when she returns there. It's possible that a friend has been there, and another friend has been feeding Kayla's cat, Toes, while Kayla is here. She is most looking forward to seeing Toes again.
[2019-06-05 16:20] VITALS: BP 135/79; PULSE 82; RESP 20; TEMP 36.8; O2SAT 95
--- NOTE | 2019-06-05 18:26 | CMACTNOTE_ITS ---
- If Service Date Differs Date of service: 06/05/19 Time of Service: 18:26 Care Management Activity Note S/O: Kayla was sitting up in bed when CM met with her. She reported that she is nervous about returning home, but was unable to identify what services would be most helpful for her. She was clear that she wanted to return to work, with the plan to work 32 hours/week. CM is unable to confirm when/if she will be returning to work. CM discussed Kayla completing her [facility] renay in order to open more services/support to her. Kayla is scheduled to have a phone interview on 06/06/2019 at 10am with Alannah from [facility] to complete her application. Kayla stated that she feels like she should be able to go home. CM stated that she would have support in the home, such as HH RN, PT/OT, OYSTER PREPARER. Kayla reported that if she returns to working nights at [employer], she will not be available to meet with HH during the day. CM will continue to follow. A: Kayla is a 58 year female admitted to [facility] SWB level 2 on 06/03/2019. P: Anticipate Kayla will return home on 06/07/2019. Her friend reports that she will be cleaning Kayla's apartment for her prior to her return. She will have new HH RN, PT/OT, OYSTER PREPARER. Honey Roberts from [facility] will follow her in the community. CM will continue to support discharge planning considerations.
[2019-06-05] MEDS: diphenhydrAMINE 25 MG CAP PO (21:24)
[2019-06-06] MEDS: Nicotine 14 MG/24 HR PATCH TD (03:10)
[2019-06-06 03:54] VITALS: BP 132/75; PULSE 80; RESP 18; TEMP 36.9; O2SAT 95
[2019-06-06] MEDS: Levothyroxine 100 MCG TAB PO (05:56)
[2019-06-06 08:00] VITALS: BP 119/74; PULSE 80; RESP 20; TEMP 36.9; O2SAT 95
[2019-06-06] MEDS: Lisinopril 5 MG TAB PO (08:06)
[2019-06-06] MEDS: Aspirin E.C. 81 MG TABEC PO (08:07)
[2019-06-06] MEDS: Cyanocobalamin 500 MCG TAB PO (08:07)
[2019-06-06] MEDS: Pregabalin 25 MG CAP 75 MG PO ×2 (08:07→19:35)
[2019-06-06] MEDS: Cilostazol 100 MG TAB PO ×2 (08:07→19:35)
[2019-06-06] MEDS: Magnesium Oxide 400 MG TAB 800 MG PO ×2 (08:07→19:35)
[2019-06-06] MEDS: Apixaban 5 MG TAB 10 MG PO ×2 (08:07→19:34)
[2019-06-06] MEDS: Calcium Carbonate *TUMS* 500 MG CHEW PO ×2 (08:07→19:33)
[2019-06-06] MEDS: Metoprolol 12.5 MG TAB PO ×2 (08:07→19:34)
[2019-06-06] MEDS: Omeprazole 20 MG CAPCR PO (08:08)
[2019-06-06 15:48] VITALS: BP 127/69; PULSE 90; RESP 18; TEMP 36.4; O2SAT 92
[2019-06-06] MEDS: diphenhydrAMINE 25 MG CAP PO (21:07)
[2019-06-06 23:48] VITALS: BP 132/70; PULSE 88; RESP 17; TEMP 36.4; O2SAT 95
[2019-06-07] MEDS: Acetaminophen 325 MG TAB PO (02:43)
[2019-06-07] MEDS: Levothyroxine 100 MCG TAB PO (06:12)
[2019-06-07 07:40] VITALS: BP 113/71; PULSE 89; RESP 16; TEMP 36.5; O2SAT 95
[2019-06-07] MEDS: Lisinopril 5 MG TAB PO (09:22)
[2019-06-07] MEDS: Pregabalin 25 MG CAP 75 MG PO ×2 (09:22→20:12)
[2019-06-07] MEDS: Cyanocobalamin 500 MCG TAB PO (09:22)
[2019-06-07] MEDS: Calcium Carbonate *TUMS* 500 MG CHEW PO ×2 (09:23→20:13)
[2019-06-07] MEDS: Omeprazole 20 MG CAPCR PO (09:23)
[2019-06-07] MEDS: Magnesium Oxide 400 MG TAB 800 MG PO ×2 (09:23→20:12)
[2019-06-07] MEDS: Metoprolol 12.5 MG TAB PO ×2 (09:23→20:12)
[2019-06-07] MEDS: Cilostazol 100 MG TAB PO ×2 (09:23→20:12)
[2019-06-07] MEDS: Aspirin E.C. 81 MG TABEC PO (09:23)
[2019-06-07 15:35] VITALS: BP 109/65; PULSE 85; RESP 18; TEMP 36.9; O2SAT 96
[2019-06-07 23:15] VITALS: BP 121/63; PULSE 84; RESP 17; TEMP 36.3; O2SAT 95
--- NOTE | 2019-06-08 00:05 | NUR.NOTE ---
At approx 2330 this RN was informed that pt was ambulating in room without walker. Pt was asked to use walker for safety, pt refused. This RN talked to pt about unsteadiness and how it is safer for her to use a walker, pt still refused. Pt also mentioned to this RN that on Sunday, she is planning to be discharged and is planning to stop taking all of her BP meds. Pt was informed that it is dangerous to abruptly stop taking medication w/o talking to her Dr and that she is on them because they are medically indicated. Pt stated that's what I did last time and I'll do it again. Pt encouraged to talk with Dr about potentially decreasing/stopping her medications.
[2019-06-08] MEDS: Levothyroxine 100 MCG TAB PO (05:26)
[2019-06-08 07:40] VITALS: BP 120/74; PULSE 76; RESP 16; TEMP 36.6; O2SAT 95
[2019-06-08] MEDS: Calcium Carbonate *TUMS* 500 MG CHEW PO ×2 (08:53→20:33)
[2019-06-08] MEDS: Omeprazole 20 MG CAPCR PO (08:55)
[2019-06-08] MEDS: Aspirin E.C. 81 MG TABEC PO (08:55)
[2019-06-08] MEDS: Magnesium Oxide 400 MG TAB 800 MG PO ×2 (08:55→20:33)
[2019-06-08] MEDS: Cilostazol 100 MG TAB PO ×2 (08:55→20:33)
[2019-06-08] MEDS: Pregabalin 25 MG CAP 75 MG PO ×2 (08:55→20:32)
[2019-06-08] MEDS: Cyanocobalamin 500 MCG TAB PO (08:56)
[2019-06-08] MEDS: Lisinopril 5 MG TAB PO (08:56)
[2019-06-08] MEDS: Metoprolol 12.5 MG TAB PO ×2 (08:56→20:33)
[2019-06-08 15:25] VITALS: BP 101/58; PULSE 84; RESP 16; TEMP 37.4; O2SAT 95
[2019-06-08] MEDS: Nicotine 14 MG/24 HR PATCH TD (16:32)
[2019-06-08] MEDS: Collagenase 30 GM TUBE TP (16:35)
[2019-06-08 23:00] VITALS: BP 126/75; PULSE 76; RESP 18; TEMP 36.6; O2SAT 98
[2019-06-09] MEDS: Levothyroxine 100 MCG TAB PO (06:34)
[2019-06-09] MEDS: Aspirin E.C. 81 MG TABEC PO (08:22)
[2019-06-09] MEDS: Metoprolol 12.5 MG TAB PO (08:22)
[2019-06-09] MEDS: Acetaminophen 325 MG TAB PO (08:22)
[2019-06-09] MEDS: Pregabalin 25 MG CAP 75 MG PO (08:22)
[2019-06-09] MEDS: Magnesium Oxide 400 MG TAB 800 MG PO (08:22)
[2019-06-09] MEDS: Cilostazol 100 MG TAB PO (08:22)
[2019-06-09] MEDS: Lisinopril 5 MG TAB PO (08:23)
[2019-06-09] MEDS: Omeprazole 20 MG CAPCR PO (08:23)
[2019-06-09] MEDS: Collagenase 30 GM TUBE TP (08:23)
[2019-06-09] MEDS: Cyanocobalamin 500 MCG TAB PO (08:23)
[2019-06-09 09:30] VITALS: BP 123/77; PULSE 91; RESP 18; TEMP 37; O2SAT 95
--- NOTE | 2019-06-09 12:47 | PDOC.HHF2F_ITS ---
Home Health Certification Home Health Certification: 1. Encounter Date and Reason I certify that ALESHA SINGH was seen by Veronika De Los Santos on 06/09/19 and that I had a [id number] encounter with this patient that meets the physician face to face encounter requirements. 2. Clinical Findings Supporting Skilled Need and Homebound Status I certify that home health services are medically necessary, include either intermittent fdc and/or physical/speech therapy, and that this patient is homebound in that absences from the home require considerable and taxing effort and are infrequent or of short duration, or are attributable to the need to receive medical care. [X] (a) Attached documentation from encounter provides clinical findings supporting skilled need and homebound status (including what assistance patient requires to leave the home). The encounter with the patient was in whole, or in part, for the following medical condition, which is the primary reason for home health care: UNSTEADY GAIT, DVT, AMBULATORY DYSFUNCTION [facility]:routine nursing evaluation and treatment, medication oversight. Physical Therapy:routine evaluation and treatment, safety in home after extended hospitalization for ambulatory dysfunction ASSOCIATE CIVIL ENGINEER: routine oversight and coordination of services Homebound:unable to safely and independently leave her house 3. Certification and Authentication I certify that I composed the above information based on my clinical judgement relating to this patient's medical condition and, if applicable, clinical findings communicated to me by the NPP or inpatient physician who performed the Home Health Referral. All further orders will be obtained through (Community Based Physician - PCP)
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
--- NOTE | 2019-06-09 15:23 | CHAPLAIN ---
Kayla was happy about being discharged today, but also said she was scared to to see what she'll find at her apartment. She has been admitted for about a week. She shared some more personal history. The Reiki practitioner arrived and offered Kayla Radha before she was discharged. Kayla was dressed and ready to leave at 1:30, waiting her for ride home.
== END 2019-06-09 13:42 | disposition home health service (06) | DRG 556 ==
PROVIDERS: Nurse Practitioner Acute Care; Admitting Provider Nurse Practitioner Family; PCP Family Medicine; Visit Provider Internal Medicine
DX: R26.2 Difficulty in walking, not elsewhere classified (principal); E46 Unspecified protein-calorie malnutrition; I82.611 Acute embolism and thrombosis of superficial veins of right upper extremity; R62.7 Adult failure to thrive; R53.1 Weakness; L89.159 Pressure ulcer of sacral region, unspecified stage; Z93.2 Ileostomy status; I10 Essential (primary) hypertension; J44.9 Chronic obstructive pulmonary disease, unspecified; F10.20 Alcohol dependence, uncomplicated; F17.210 Nicotine dependence, cigarettes, uncomplicated; E78.5 Hyperlipidemia, unspecified; E03.9 Hypothyroidism, unspecified; Z86.718 Personal history of other venous thrombosis and embolism; Z90.49 Acquired absence of other specified parts of digestive tract; Z79.01 Long term (current) use of anticoagulants
CPT/HCPCS: 36415; 80048; 97110; 97161; 97530; 97535; 99223; 99239; 99306; 99316; 83735; 87324; J3490

== ENCOUNTER 2019-06-28 13:05 | Emergency (ER) | payer MEDICAID, SELFPAY ==
[2019-06-28] VITALS (23 sets, daily range): BP systolic 162–186; BP diastolic 86–106; PULSE 83–111; RESP 10–29; TEMP 36.5; O2SAT 93–99
--- NOTE | 2019-06-28 13:00 | ED.GENADUL_ITS ---
Discharge Plan Disposition Patient Disposition: HOME Condition: Good Discharge Details Chief Complaint: Abd Prob Clinical Impression: Abdominal pain Primary Care Provider: Chidi Mccormack ED Provider: Neeru De Los Santos Home Meds and New Rx's Prescriptions: Continued Eliquis 5 mg tablet 5 mg PO BID Qty: 60 RF: 0 triamcinolone acetonide 0.025 % cream 1 applic TP BID PRN (Reason: itching) Qty: 80 RF: 0 pregabalin 75 mg capsule 75 mg PO BID Qty: 30 RF: 0 levothyroxine 100 mcg tablet 100 mcg PO 0600 Qty: 90 RF: 3 lidocaine 4 % adhesive patch,medicated 1 patch TP Q24H PRN (Reason: pain) Qty: 6 RF: 12 folic acid 1 mg tablet 1 mg PO DAILY RF: 0 diphenhydramine HCl [Benadryl] 25 MG capsule 25 mg PO DAILY PRNRF: 0 aspirin [Adult Aspirin Regimen] 81 mg tablet,delayed release (DR/EC) 81 mg PO DAILY RF: 0 Bengay Greaseless 15-10 % cream 1 applic TP BID PRNRF: 0 calcium carbonate [Antacid (calcium carbonate)] 200 mg calcium (500 mg) tablet,chewable 200 mg PO TID RF: 0 thiamine HCl (vitamin B1) 50 mg tablet 50 mg PO DAILY RF: 0 ondansetron HCl [Zofran] 4 mg tablet 4 mg PO Q6H PRNRF: 0 acetaminophen 500 mg tablet 1,000 mg PO Q6H PRN (Reason: fever or pain) Qty: 360 RF: 3 cilostazol 100 mg tablet 100 mg PO BID Qty: 180 RF: 3 cyanocobalamin (vitamin B-12) 500 mcg lozenge 500 mcg PO DAILY Qty: 250 RF: 3 magnesium oxide 400 mg (241.3 mg magnesium) tablet 800 mg PO BID Qty: 300 RF: 3 omeprazole 20 mg capsule,delayed release(DR/EC) 20 mg PO DAILY Qty: 90 RF: 3 clotrimazole 1 % Cream 60 g topical TID Qty: 0 RF: 0 vits A and D-white pet-lanolin Ointment 60 g topical TID Qty: 0 RF: 0 multivitamin tablet 1 tab PO DAILY Qty: 30 RF: 0 Santyl 250 unit/gram Ointment 30 g topical DAILY Qty: 250 RF: 0 Discharge Instructions Instructions: Abdominal Pain (ED) Additional Instructions: Encourage water intake. Home health nursing will come to see you tomorrow. Please follow-up with primary care next week for reevaluation. If you develop increased pain, fever/chills, inability stay hydrated or other new/worsening symptoms please seek care urgently once again. Referrals: Chidi Mccormack, [Primary Care Provider] - Discharge Data Discharge Date/Time-TO BE ENTERED AT DEPARTURE: 06/28/19 16:35 Medical Decision Making <SALEEM Ledesma - Last Filed: 07/04/19 08:11> Patient is 59-year-old female, well-known to myself, with chief complaint of abdominal pain. She reports that pain began at 3 AM today suddenly. States that the pain is primarily around the area of her ileostomy. Patient had ileostomy placed last fall. States he continues to drain stool normally. She denies abuse or chills. Has had nausea but denies any vomiting. Denies any change in her bowel habits. She denies any alcohol use recently. She reports that she is been taking the apixaban as well as her other medication as prescribed. No recent travel. Patient does have home health services. EKG was reviewed by Dr. Edmond. Patient is in a normal sinus rhythm with a rate of 92, no acute ischemic changes noted. We replaced the patient's ostomy bag. Her stoma is pink and moist and producing appropriate amount of stool. Surrounding area is soft. Does seem tender but less so than when she initially came in. She is not received any analgesics. No peritoneal findings at this time. Labs reviewed. No leukocytosis. Patient's not anemic. Elevated anion gap is 13.1 but otherwise no significant abnormalities. Patient is receiving IV fluid replacement. Awaiting CT results. FINDINGS: Liver: Normal. No mass. Gallbladder and bile ducts: Normal. No calcified stones. No ductal dilation. Pancreas: Pancreatic atrophy Spleen: Normal. No splenomegaly. Adrenals: Normal. No mass. Kidneys and ureters: Normal. No hydronephrosis. Stomach and bowel: Ileostomy in the right lower quadrant. Colorectal anastomosis. Diverticulosis of the colon. No jose eduardo diverticulitis.. Decreasing size of a peristomal hernia Appendix: No evidence of appendicitis. Intraperitoneal space: Unremarkable. No free air. No significant fluid collection. Vasculature: Unremarkable. No abdominal aortic aneurysm. Lymph nodes: Unremarkable. No enlarged lymph nodes. Bladder: The bladder wall measures 5 -6 mm. This is nonspecific and may represent inflammation or infection. Neoplastic process and neurogenic bladder are included in the differential. Reproductive: Varices around the uterus Bones/joints: Levoscoliosis of the lumbar spine IMPRESSION: 1. Decreasing size of a peristomal hernia. 2. Ileostomy in the right lower quadrant. 3. The bladder wall measures 5 -6 mm. This is nonspecific and may represent inflammation or infection. Neoplastic process and neurogenic bladder are included in the differential. Obtain a urinalysis. She is not having dysuria, increased frequency urgency. I discussed these findings with the patient. She appears nontoxic. Feel that pa starcindy is safe for discharge. I will touch base with home health regarding close follow-up and ostomy recheck. Spoke with home health nursing, spoke with HENNA Bob, who advised that patient often refuses nurses entry. She states that they note patient continues to drink despite patient denying this. She advised that patient can be evaluated tomorrow by home health nursing staff. Urinalysis without significant abnormality discussed these findings with the patient. Patient had [place] got herself up crying is ambulating about the room, is requesting food, is drinking in the room. Patient smells like she has been smoking in the room. Does not appear to be in any acute distress. Does not acutely appear to be in pain. I did discuss with her the need for her to let in nursing staff as she has been refusing them access. Patient does seem quite angry about this. She is now becoming more argumentative and is demanding discharge. Wants to go eat. She was given return precautions. Advised to follow-up with primary care. All of her questions or concerns were addressed and she is in agreement this plan. <SALEEM Leyva - Last Filed: 07/05/19 08:16> This patient was signed out to me in error. I was not involved in this patient's care HPI <SALEEM Ledesma - Last Filed: 07/04/19 08:11> General Mode of arrival: EMS . Date/Time Provider Initiated Documentation: 06/28/19 13:25 . Limitations to Documentation: no limitations . Information obtained by: patient, EMS and RN notes reviewed . History of Present Illness 59 year old F presents to the emergency department with the chief complaint of abdominal pain at ileostomy site, described as severe, with intensity rated at >10. Quality is described as stabbing, and is localized to the abdomen. Patient reports no radiation. Patient started experiencing this hour(s) (0300 today) and it has been constant. No relievin g factors improve symptom(s), No exacerbating factors reported . Patient notes no other symptoms., loss of appetite and nausea/vomiting (nausea, no vomiting); denies chest pain, cough, fever/chills, headaches, rash and shortness of breath. Patient did receive the following treatments prior to arrival, none Related Data Home Medications Medication Instructions Recorded Confirmed diphenhydramine HCl [Benadryl] 25 mg PO DAILY PRN 08/14/16 06/28/19 clotrimazole 60 g TOPICAL TID #0 g 09/14/18 05/31/19 multivitamin 1 tab PO DAILY #30 tab 09/14/18 06/28/19 vits A and D-white pet-lanolin 60 g TOPICAL TID #0 g 09/14/18 05/31/19 aspirin 81 mg tablet,delayed 81 mg PO DAILY 01/14/19 06/28/19 release methyl salicylate 15 %-menthol 10 1 applic TP BID PRN 02/17/19 05/31/19 % topical cream apixaban 5 mg tablet 5 mg PO BID #60 tab 02/25/19 06/28/19 triamcinolone acetonide 0.025 % 1 applic TP BID PRN #80 gm 02/25/19 05/31/19 topical cream folic acid 1 mg tablet 1 mg PO DAILY 04/01/19 05/31/19 calcium carbonate 200 mg calcium 200 mg PO TID 05/15/19 06/28/19 (500 mg) chewable tablet ondansetron HCl 4 mg tablet 4 mg PO Q6H PRN 05/15/19 05/31/19 thiamine HCl (vitamin B1) 50 mg 50 mg PO DAILY 05/15/19 05/31/19 tablet levothyroxine 100 mcg tablet 100 mcg PO 0600 #90 tab 05/19/19 06/28/19 pregabalin 75 mg capsule 75 mg PO BID #30 cap 05/19/19 05/31/19 lidocaine 4 % topical patch 1 patch TP Q24H PRN #6 each 05/22/19 06/28/19 Santyl 30 g TOPICAL DAILY #250 g 06/09/19 acetaminophen 500 mg tablet 1,000 mg PO Q6H PRN #360 tab 06/12/19 06/28/19 cilostazol 100 mg tablet 100 mg PO BID #180 tab 06/12/19 cyanocobalamin (vitamin B-12) 500 500 mcg PO DAILY #250 each 06/12/19 mcg lozenges magnesium oxide 400 mg (241.3 mg 800 mg PO BID #300 tab 06/12/19 magnesium) tablet omeprazole 20 mg capsule,delayed 20 mg PO DAILY #90 cap 06/12/19 release Previous Rx's Medication Instructions Recorded clotrimazole 60 g TOPICAL TID #0 g 09/14/18 multivitamin 1 tab PO DAILY #30 tab 09/14/18 vits A and D-white pet-lanolin 60 g TOPICAL TID #0 g 09/14/18 apixaban 5 mg tablet 5 mg PO BID #60 tab 02/25/19 triamcinolone acetonide 0.025 % 1 applic TP BID PRN #80 gm 02/25/19 topical cream levothyroxine 100 mcg tablet 100 mcg PO 0600 #90 tab 05/19/19 pregabalin 75 mg capsule 75 mg PO BID #30 cap 05/19/19 lidocaine 4 % topical patch 1 patch TP Q24H PRN #6 each 05/22/19 Santyl 30 g TOPICAL DAILY #250 g 06/09/19 acetaminophen 500 mg tablet 1,000 mg PO Q6H PRN #360 tab 06/12/19 cilostazol 100 mg tablet 100 mg PO BID #180 tab 06/12/19 cyanocobalamin (vitamin B-12) 500 500 mcg PO DAILY #250 each 06/12/19 mcg lozenges magnesium oxide 400 mg (241.3 mg 800 mg PO BID #300 tab 06/12/19 magnesium) tablet omeprazole 20 mg capsule,delayed 20 mg PO DAILY #90 cap 06/12/19 release Allergies Allergy/AdvReac Type Severity Reaction Status Date / Time hydrochlorothiazide Allergy Severe RASH Verified 06/28/19 13:15 morphine Allergy Severe stops Verified 06/28/19 13:15 breathing simvastatin Allergy Intermediate rash Verified 06/28/19 13:15 Penicillins Allergy Unknown unknown Verified 06/28/19 13:15 adhesive tape AdvReac itching, Verified 06/28/19 13:15 redness under iv dressing. CANNABINOID Allergy Unknown Swelling/Ed Uncoded 06/28/19 13:15 hans General JOLENE: 4 Review of Systems <SALEEM Ledesma - Last Filed: 07/04/19 08:11> Constitutional Constitutional: Reports as per HPI, Denies chills, Denies fatigue, Denies fever(s) and Denies headache(s) ENT Ears, Nose, Mouth, and Throat: Denies headache(s) Cardiovascular Cardiovascular: Reports as per HPI, Denies chest pain and Denies dyspnea Respiratory Respiratory: Reports as per HPI, Denies cough and Denies dyspnea Gastrointestinal Gastrointestinal: Reports as per HPI Musculoskeletal Musculoskeletal: Reports as per HPI and Denies back pain Integumentary/Breasts Skin/Breast: Reports as per HPI and Denies rash Neurologic Neurologic: Reports as per HPI and Denies headache(s) Endocrine Endocrine: Denies fatigue PFSH <SALEEM Ledesma - Last Filed: 07/04/19 08:11> Medical History Alcohol dependence (Chronic) drinking beer during visit; many empties around Arterial occlusive disease (Chronic Unknown) ABIs [facility] [place]ascular 11/30/16--bilateral & moderate Continuous chewing tobacco dependence (Inactive 01/22/12) COPD (chronic obstructive pulmonary disease) (Suspected) not proven, requires outpatient PFTs CRPS 1, lower extremity (Acute) possible diagnosis Essential hypertension (Chronic 01/22/12) Foot pain, left (Chronic 12/04/16) Neuropathic vs. claudication Hyperlipidemia (Chronic 08/21/12) Hyperlipidemia (Chronic 08/21/12) Hypothyroidism (Chronic) Neuropathy (Chronic 12/07/16) left foot Palliative care patient (Acute) Unstable gait (Acute) walks with a walker antalgic gait Wernicke-Korsakoff syndrome (Chronic) Surgical History S/P colectomy (Acute 12/26/18) lap converted to open sigmoid colectomy w/ primary stapled anastomosis and diverting loop ileostomy Social History Smoking/Tobacco Use Status: Current every day Tobacco Type: cigarettes Quit status: not considering quitting Counseling given: counseling >3 minutes Alcohol Intake: current Alcohol Intake frequency: 3 or more drinks per day Alcohol type: beer and hard liquor Counseling given: Yes Counseling provided: reduce to 2 or less/day Drug use: Never Substance use type: does not use Caregiver/Support person: No Household members: none Housing: apartment Number of Children: 1 Communication Needs: Corrective Lenses Education Level: high school Do you need help understanding health information?: Always current occupation: not working at this time Pets and animals: Yes (Mr Joel Sharp) Pets and animals: cat(s) What is your relationship status?: never How often do you talk on the phone with friends or family?: twice per week Panel score (0-1 are the most socially isolated patients): 0 What type of physical activity do you participate in: none Special carlie needs: No Agree to transfusion: Yes Seatbelt use: always Drive intox or ride w/intox 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 Has not been back to work since then. Twice has been found down, with elevated etoh level, covered in feces. Wants to return to work. No longer receiving health benefits from [employer]. Thinks she can go back second shift if I want. Unrealistic. Exam <SALEEM Ledesma - Last Filed: 07/04/19 08:11> Const General: cooperative, comfortable, no acute distress, well developed and ill appearing chronically Nutritional Appearance: well nourished and cachectic Orientation: alert and awake HENMT Head: normal to inspection Mouth: moist mucous membranes Resp Effort & Inspection: normal respiratory effort, able to speak in complete sentences and no respiratory distress Auscultation: clear to auscultation bilaterally, no rales, no rhonchi and no wheezes Cardio Rate: regular rate Rhythm: regular rhythm Heart Sounds: S1 normal and S2 normal GI Inspection: normal to inspection, non-distended, no incisions, no obesity and other (ileostomy) Palpation: soft, no hepatosplenomegaly, not firm, guarding (around area of ileostomy) in the RLQ, not rigid, tender and No ascites Percussion: normal to percussion Auscultation: normal bowel sounds Back/Spine/Pelvis Back: no CVA tenderness Skin General skin exam: no rashes or lesions noted Trauma: no lacerations or abrasions Neuro General: alert and awake Cognition: normal cognition Speech: speech normal Gait: normal gait Psych Appearance: grossly normal and well kempt Mental Status: mental status grossly normal Speech and Movement: speech and movement normal
--- NOTE | 2019-06-28 13:26 | DI.CT_ITS ---
EXAM: CT ABDOMEN PELVIS W CLINICAL HISTORY: severe pain at ileostomy. TECHNIQUE: Imaging Protocol: Axial computed tomography images with coronal and sagittal reformatted images were created and reviewed CONTRAST MATERIAL: Intravenous: Omnipaque 350 Contrast volume:100 mL Oral: No COMPARISON: CT ABDOMEN PELVIS W from 05/26/2019 FINDINGS: ABDOMEN: Lung Bases: No acute abnormality. Liver: The dome of the liver is not included. No measurable mass. Gallbladder and biliary tract: No radiodense calculus or dilation. Pancreas: Pancreatic atrophy. No mass. Spleen: Normal. Kidneys: Normal size, contour and axis. No radiodense stones or obstructive uropathy. No masses seen. Adrenal glands: No masses seen. Abdominal Aorta: Abdominal portion non-dilated. Atherosclerosis. PELVIS: Bladder: Diffusely thickened wall. No intraluminal mass. Bowel: Colonic diverticulosis but no evidence of acute diverticulitis. No evidence of an acute appen dicitis. At the site of the right lower quadrant ostomy, there is a herniated loop of unremarkable s mall bowel. No evidence of obstruction/incarceration. Hernia is smaller compared to the prior exami nation. Peritoneal cavity: No ascites, collection or mesenteric inflammatory response. Bones: Right convex scoliosis of the thoracolumbar spine. Degenerative changes in the lumbar spine. Reproductive organs: Within normal limits. Varices around the uterus. Lymph nodes: Unremarkable. Impression: 1. Decreased size of right lower quadrant peristomal hernia. No evidence of obstruction/incarcerati on. 2. Urinary bladder wall thickening. This may represent an inflammatory or infectious process. Neopl asm and neurogenic bladder should be included in the differential. DATA REPOSITORY: All CT scans at this facility are submitted to the National Radiology Data Registry (NRDR) Dose Index Registry (DIR) with the [employer] (ACR). RADIATION OPTIMIZATION: All CT scans at this facility use at least one of these dose optimization te chniques: automated exposure control; mA and/or kV adjustment per patient size (includes targeted exa ms where dose is matched to clinical indication); or iterative reconstruction.
[2019-06-28] MEDS: Normal Saline 1,000 ML 1000 ML IV (13:40)
[2019-06-28] MEDS: Ondansetron 4 MG/2 ML VIAL IVP (13:42)
[2019-06-28 14:03] LABS: Abs Immature Grans 0.01 k/cumm (0.0-0.09); Absolute Basophil Count 0.02 k/cumm (0.0-0.2); Absolute Eosinophil Count 0.06 k/cumm (0.0-0.7); Absolute Lymphocyte Count 1.42 k/cumm (1.2-3.4); Absolute Monocyte Count 0.94 k/cumm (0.11-0.7); Absolute Neutrophil Count 3.49 k/cumm (1.2-6.7); Basophils % 0.3; HCT 39.6 % (36.0-46.0); HGB 13.5 g/dL (12.0-15.5); Immature Grans % 0.2 %; Lymphocytes % 23.9; Mean Corp. HGB Concentration 34.1 g/dL (32.0-36.0); Mean Corpuscular Volume 105.6 fL (80-95); Mean Platelet Volume 9.4 fL (8.0-11.0); Monocytes % 15.8; Neutrophils % 58.8; Platelet Count 269 x1000/uL (130-400); RBC 3.75 m/cumm (4.00-5.20); RBC Distribution Width 13.6 % (11.7-14.6); White Blood Cell Count 5.94 k/cumm (4.4-10.8)
[2019-06-28 14:13] LABS: ALT 41 U/L (14-59); AST 31 U/L (15-37); Albumin 4.2 g/dL (3.4-5.0); Alkaline Phosphatase 105 U/L (46-116); Anion Gap 13.1 mmol/L (3-11); BUN 7 mg/dL (7-18); Bilirubin, Total 0.6 mg/dL (0.2-1.0); CO2 25.9 mmol/L (21.0-32.0); CREATININE 0.79 mg/dL (0.55-1.02); Calcium 9.5 mg/dL (8.5-10.1); Chloride 95 mmol/L (98-107); Glucose 145 mg/dL (74-106); Lipase 99 U/L (73-393); Potassium 4.1 mmol/L (3.5-5.1); Sodium 134 mmol/L (136-145); Total Protein 7.8 g/dL (6.4-8.2)
[2019-06-28 14:15] LABS: Diff Comment RBC Morph Reviewed
[2019-06-28 14:16] LABS: Macrocytosis 2+; Stomatocytes 2+
[2019-06-28] MEDS: Omnipaque 350 MG/ML 100 ML BTL IJ (14:51)
--- NOTE | 2019-06-28 15:33 | DI.VRAD_ITS ---
PROCEDURE INFORMATION: Exam: CT Abdomen And Pelvis With Contrast Exam date and time: 06/28/2019 2:52 PM Age: 59 years old Clinical indication: Abdominal tenderness and other: Pain by ileostomy; Prior surgery; Surgery date: 1-6 months; Surgery type: Ileostomy, TECHNIQUE: Imaging protocol: Computed tomography of the abdomen and pelvis with intravenous contrast. Contrast material: [id number]; Contrast volume: 100 ml; Contrast route: LT FORARM; COMPARISON: CT ABDOMEN PELVIS W 05/26/2019 1:53 PM FINDINGS: Liver: Normal. No mass. Gallbladder and bile ducts: Normal. No calcified stones. No ductal dilation. Pancreas: Pancreatic atrophy Spleen: Normal. No splenomegaly. Adrenals: Normal. No mass. Kidneys and ureters: Normal. No hydronephrosis. Stomach and bowel: Ileostomy in the right lower quadrant. Colorectal anastomosis. Diverticulosis of the colon. No jose eduardo diverticulitis.. Decreasing size of a peristomal hernia Appendix: No evidence of appendicitis. Intraperitoneal space: Unremarkable. No free air. No significant fluid collection. Vasculature: Unremarkable. No abdominal aortic aneurysm. Lymph nodes: Unremarkable. No enlarged lymph nodes. Bladder: The bladder wall measures 5 -6 mm. This is nonspecific and may represent inflammation or infection. Neoplastic process and neurogenic bladder are included in the differential. Reproductive: Varices around the uterus Bones/joints: Levoscoliosis of the lumbar spine IMPRESSION: 1. Decreasing size of a peristomal hernia. 2. Ileostomy in the right lower quadrant. 3. The bladder wall measures 5 -6 mm. This is nonspecific and may represent inflammation or infection. Neoplastic process and neurogenic bladder are included in the differential. Dictated and Authenticated by: Sonny Del Cid MD. Ordering:ROSANA Siddiqi MD
[2019-06-28 16:04] LABS: Bilirubin Negative (Negative); Blood Negative (Negative); Clarity Clear (Clear); Glucose Negative (Negative); Ketones Negative (Negative); Leukocyte Esterase Negative (Negative); Nitrite Negative (Negative); Urobilinogen 0.2 EU/dL (Up TO 0.2)
== END 2019-06-28 16:35 | disposition home or self-care (01) ==
PROVIDERS: Emergency Provider Physician Assistant; PCP Family Medicine
DX: T85.848A Pain due to other internal prosthetic devices, implants and grafts, initial encounter (principal); R11.0 Nausea; Z43.2 Encounter for attention to ileostomy; I10 Essential (primary) hypertension
CPT/HCPCS: 36415; 80053; 83690; 93005; 96361; 96374; 99285; 74177; 81003; 85025; 93010; 99284; J2405; J3490

== ENCOUNTER 2019-07-17 16:44 | Outpatient (REF) | payer MEDICAID, SELFPAY | END 2019-07-17 17:04 | LOC: LBN 16:44 | PROVIDERS: PCP Family Medicine; Visit Provider Family Medicine | DX: L03.113 Cellulitis of right upper limb (principal) | CPT/HCPCS: 87070; 87205 ==

== ENCOUNTER 2019-09-22 14:15 | Outpatient (REF) | payer MEDICAID, SELFPAY ==
[2019-09-22 17:53] LABS: Anion Gap 9.5 mmol/L (3-11); BUN 17 mg/dL (7-18); CO2 25.5 mmol/L (21.0-32.0); CREATININE 0.92 mg/dL (0.55-1.02); Calcium 9.5 mg/dL (8.5-10.1); Chloride 98 mmol/L (98-107); Glucose 121 mg/dL (74-106); HCT 39.5 % (36.0-46.0); HGB 14.1 g/dL (12.0-15.5); Mean Corp. HGB Concentration 35.7 g/dL (32.0-36.0); Mean Corpuscular Hemoglobin 37.1 pg (27.0-33.0); Mean Corpuscular Volume 103.9 fL (80-95); Mean Platelet Volume 10.6 fL (8.0-11.0); Platelet Count 237 x1000/uL (130-400); Potassium 4.5 mmol/L (3.5-5.1); Sodium 133 mmol/L (136-145); White Blood Cell Count 9.87 k/cumm (4.4-10.8)
== END 2019-09-22 14:35 ==
LOC: LBN 14:15
PROVIDERS: PCP Family Medicine; Visit Provider Family Medicine
DX: R00.0 Tachycardia, unspecified (principal); Z01.810 Encounter for preprocedural cardiovascular examination; I10 Essential (primary) hypertension
CPT/HCPCS: 80048; 85027

== ENCOUNTER 2019-09-26 09:45 | Outpatient (CLI) | payer MEDICAID, SELFPAY ==
[2019-09-26 19:21] LABS: COVID-19 RT-PCR UVMMC Result Negative (Negative)
== END 2019-09-26 10:05 ==
PROVIDERS: PCP Family Medicine; Visit Provider Family Medicine
DX: Z11.59 Encounter for screening for other viral diseases (principal); Z01.818 Encounter for other preprocedural examination
CPT/HCPCS: U0003

== ENCOUNTER 2019-11-10 15:54 | Outpatient (REF) | payer MEDICAID, SELFPAY ==
[2019-11-11 01:20] LABS: COVID-19 RT-PCR UVMMC Result Negative (Negative)
== END 2019-11-10 16:14 ==
LOC: LBN 15:54
PROVIDERS: PCP Family Medicine; Visit Provider Family Medicine
DX: Z01.818 Encounter for other preprocedural examination (principal); Z11.59 Encounter for screening for other viral diseases
CPT/HCPCS: U0003

== ENCOUNTER 2020-09-17 04:11 | Outpatient (CLI) | payer MEDICAID, SELFPAY ==
[2020-09-17 12:05] LABS: Abs Immature Grans 0.05 10^3/uL (0.0-0.06); Absolute Basophil Count 0.04 10^3/uL (0.0-0.2); Absolute Lymphocyte Count 1.97 10^3/uL (1.2-3.4); Absolute Monocyte Count 0.81 10^3/uL (0.1-0.8); Basophils % 0.3; Eosinophils % 0.8; HCT 41.4 % (36.0-46.0); HGB 14.4 g/dL (11.2-15.7); Immature Grans % 0.4; Lymphocytes % 16.6; MCH 35.5 pg (27.0-33.0); MCHC 34.8 % (32.0-36.0); MPV 9.9 fL (8.0-11.0); Monocytes % 6.8; Neutrophils % 75.1; Nucleated RBC 0 %; Platelet Count 273 10^3/uL (130-400); RBC 4.06 10^6/uL (3.93-5.22); RDW 12.7 % (11.7-14.6); RDW-SD 47.9 fL; WBC 11.84 10^3/uL (4.4-10.8)
[2020-09-17 12:06] LABS: Absolute Eosinophil Count 0.09 10^3/uL (0.0-0.7); Absolute Neutrophil Count 8.89 10^3/uL (1.2-6.7)
[2020-09-17 14:27] LABS: ALT 20 U/L (14-59); AST 24 U/L (15-37); Albumin 4.9 g/dL (3.4-5.0); Alkaline Phosphatase 85 U/L (46-116); Anion Gap 10.2 mmol/L (3-11); BUN 12 mg/dL (7-18); Bilirubin, Total 0.8 mg/dL (0.2-1.0); CO2 27.8 mmol/L (21.0-32.0); CREATININE 0.5 mg/dL (0.55-1.02); Chloride 95 mmol/L (98-107); Glucose 101 mg/dL (74-106); Potassium 5.1 mmol/L (3.5-5.1); Sodium 133 mmol/L (136-145); TSH 0.14 uIU/mL (0.36-3.74); Total Protein 7.9 g/dL (6.4-8.2)
[2020-09-17 14:50] LABS: Calculated LDL 90 mg/dL (<100); Cholesterol 200 mg/dL (<200); HDL Cholesterol 88 mg/dL (40-60); Triglyceride 114 mg/dL (<150)
== END 2020-09-17 04:12 | disposition home or self-care (01) ==
LOC: LBO 04:11
PROVIDERS: PCP Family Medicine; Visit Provider Family Medicine
DX: I10 Essential (primary) hypertension (principal); E87.1 Hypo-osmolality and hyponatremia; G58.8 Other specified mononeuropathies
CPT/HCPCS: 36415; 80053; 80061; 84443; 85025

== ENCOUNTER 2020-09-20 10:43 | Outpatient (REF) | payer MEDICAID, SELFPAY | END 2020-09-20 10:44 | disposition home or self-care (01) | LOC: LBN 10:43 | PROVIDERS: PCP Family Medicine; Referring Provider Family Medicine; Visit Provider Family Medicine | DX: R82.998 Other abnormal findings in urine (principal) | CPT/HCPCS: 87077; 87086; 87186 ==

== ENCOUNTER 2020-10-20 13:54 | Outpatient (REF) | payer MEDICAID, SELFPAY | END 2020-10-20 13:55 | disposition home or self-care (01) | LOC: LBN 13:54 | PROVIDERS: PCP Family Medicine; Visit Provider Nurse Practitioner | DX: R10.31 Right lower quadrant pain (principal); R10.32 Left lower quadrant pain; R82.998 Other abnormal findings in urine | CPT/HCPCS: 87086 ==

== ENCOUNTER 2020-12-16 04:35 | Outpatient (CLI) | payer MEDICARE, MEDICAID, SELFPAY ==
[2020-12-16 15:49] LABS: TSH (W/Ref FT4) 1.22 uIU/mL (0.36-3.74)
== END 2020-12-16 04:36 | disposition home or self-care (01) ==
LOC: LBO 04:35
PROVIDERS: PCP Family Medicine; Visit Provider Family Medicine
DX: E03.9 Hypothyroidism, unspecified (principal)
CPT/HCPCS: 36415; 84443

== ENCOUNTER 2021-01-26 01:32 | Outpatient (CLI) | payer MEDICARE, MEDICAID, SELFPAY ==
--- NOTE | 2021-01-26 | DI.MRI_ITS ---
Exam(s) MR CERVICAL SPINE WO EXAM: MR CERVICAL SPINE WO CLINICAL HISTORY: NECK AND ARM PAIN, RADICULOPATHY CERVICAL REGION, M54.12 TECHNIQUE: Multiplanar multisequence MRI of the cervical spine was performed without intravenous con trast. COMPARISON: No exams were available for comparison FINDINGS: BONES: Vertebral body heights are maintained. There is disc space narrowing at C4-5, C5-C6 and C6-C7. There is mild reversal of the normal cervical lordosis centered at C4-C5. Degenerative endplate sign al changes are seen at C4-5 and C6-C7. CERVICAL CORD: Craniovertebral junction is unremarkable. The cervical cord is normal size and signal intensity. SOFT TISSUES: Unremarkable. C2-3: No disc herniation or bulge is identified. No significant central spinal canal or neural forami nal stenosis. C3-4: No disc herniation or bulge is identified. No significant central spinal canal stenosis. Hyper trophic changes of the facets on the left are noted. This causes moderately severe left neural juana inal stenosis. No significant right neural foraminal stenosis. C4-5: There is prominence of the osteophyte disc complex. No significant narrowing of the central sp inal canal is noted. There are hypertrophic changes of the uncovertebral joints. This causes modera te bilateral neural foraminal stenosis, left greater than right. C5-6: No disc herniation or bulge is identified. There is no central spinal canal stenosis. Mild deg enerative changes of the uncovertebral joints are seen bilaterally. No significant neural foraminal stenosis. Facet arthropathy is present. C6-7: No disc herniation or bulge is identified. There are degenerative changes of the uncovertebral joints bilaterally. There is no central spinal canal stenosis. There is mild right neural foraminal narrowing. C7-T1: No disc herniation or bulge is identified. No significant central spinal canal or neural juana inal stenosis IMPRESSION: Multilevel degenerative changes in the cervical spine as described above. Multilevel neural foramina l stenosis. The findings are most marked on the left at C3-C4 and bilaterally at C4-C5. DATA REPOSITORY:
== END 2021-01-26 01:52 ==
PROVIDERS: PCP Family Medicine; Visit Provider Nurse Practitioner
DX: M47.22 Other spondylosis with radiculopathy, cervical region (principal)
CPT/HCPCS: 72141

== ENCOUNTER → 2021-03-24 13:35 | Outpatient (BNVA) | payer MEDICARE, MEDICAID, SELFPAY | PROVIDERS: PCP Family Medicine; Referring Provider Nurse Practitioner; Visit Provider Psychiatry & Neurology Neurology | DX: M79.672 Pain in left foot (principal); Z78.9 Other specified health status; I70.90 Unspecified atherosclerosis; G62.9 Polyneuropathy, unspecified | CPT/HCPCS: 95885; 95908; 99213 ==

== ENCOUNTER 2022-07-28 01:25 | Outpatient (CLI) | payer MEDICARE, MEDICAID, SELFPAY ==
[2022-07-28 08:49] LABS: Calculated LDL 130 mg/dL (<100); Cholesterol 268 mg/dL (<200); HDL Cholesterol 120 mg/dL (40-60); Triglyceride 93 mg/dL (<150)
== END 2022-07-28 01:26 | disposition home or self-care (01) ==
LOC: LBO 01:27
PROVIDERS: PCP Family Medicine; Visit Provider Family Medicine
DX: E78.5 Hyperlipidemia, unspecified (principal)
CPT/HCPCS: 36415; 80061

== ENCOUNTER 2022-09-15 01:45 | Outpatient (CLI) | payer MEDICARE, MEDICAID, SELFPAY ==
[2022-09-15 08:49] LABS: Anion Gap 10.3 mmol/L (3-11); BUN 11 mg/dL (7-18); CO2 28.7 mmol/L (21.0-32.0); CREATININE 0.6 mg/dL (0.55-1.02); Calcium 9.6 mg/dL (8.5-10.1); Chloride 102 mmol/L (98-107); Estimated GFR 100.17 (mL/min/1.73m2); Glucose 95 mg/dL (74-106); Potassium 4.1 mmol/L (3.5-5.1); Sodium 141 mmol/L (136-145); TSH (W/Ref FT4) 0.25 uIU/mL (0.36-3.74)
[2022-09-15 09:15] LABS: FREE T4 1.26 ng/dL (0.76-1.46)
== END 2022-09-15 01:46 | disposition home or self-care (01) ==
LOC: LBO 01:45
PROVIDERS: PCP Family Medicine; Visit Provider Family Medicine
DX: E87.1 Hypo-osmolality and hyponatremia (principal); E03.9 Hypothyroidism, unspecified
CPT/HCPCS: 36415; 80048; 84439; 84443

== ENCOUNTER 2023-04-13 02:31 | Outpatient (CLI) | payer MEDICARE, MEDICAID, SELFPAY ==
[2023-04-13 09:01] LABS: ALT 14 U/L (14-59); AST 17 U/L (15-37); Albumin 4.3 g/dL (3.4-5.0); Alkaline Phosphatase 93 U/L (46-116); Anion Gap 11.3 mmol/L (3-11); BUN 10 mg/dL (7-18); Bilirubin, Total 0.4 mg/dL (0.2-1.0); CO2 29.7 mmol/L (21.0-32.0); CREATININE 0.7 mg/dL (0.55-1.02); Calcium 9.3 mg/dL (8.5-10.1); Calculated LDL 149 mg/dL (<100); Chloride 97 mmol/L (98-107); Cholesterol 271 mg/dL (<200); Estimated GFR 96.52 (mL/min/1.73m2); Glucose 99 mg/dL (74-106); HDL Cholesterol 92 mg/dL (40-60); Magnesium 1.6 mg/dL (1.8-2.4); Potassium 4.1 mmol/L (3.5-5.1); Sodium 138 mmol/L (136-145); TSH (W/Ref FT4) 1.97 uIU/mL (0.36-3.74); Total Protein 8.2 g/dL (6.4-8.2); Triglyceride 152 mg/dL (<150)
== END 2023-04-13 02:32 | disposition home or self-care (01) ==
LOC: LBO 02:32
PROVIDERS: PCP Family Medicine; Visit Provider Family Medicine
DX: E78.5 Hyperlipidemia, unspecified (principal); E03.9 Hypothyroidism, unspecified; E87.1 Hypo-osmolality and hyponatremia; F10.20 Alcohol dependence, uncomplicated
CPT/HCPCS: 36415; 80053; 80061; 83735; 84443

== ENCOUNTER 2023-09-12 11:16 | Outpatient (REF) | payer MEDICARE, MEDICAID, SELFPAY | END 2023-09-12 11:17 | disposition home or self-care (01) | LOC: LBN 11:16 | PROVIDERS: PCP Family Medicine; Visit Provider Nurse Practitioner | DX: R30.0 Dysuria (principal) | CPT/HCPCS: 87086 ==

== ENCOUNTER 2023-10-25 17:08 | Inpatient (IN) | payer MEDICARE, MEDICAID, SELFPAY ==
[2023-10-25] VITALS (55 sets, daily range): BP systolic 91–225; BP diastolic 45–174; PULSE 56–100; RESP 16–31; TEMP 36.3–36.9; O2SAT 78–100
--- NOTE | 2023-10-25 17:15 | RT.EKG_ITS ---
APPROVED REPORT Exam: Resting ECG Reason for Exam: sob Patient Location: E HR:100 bpm ECG Measurements Heart Rate 100 AXIS GA 172 P 133 QRSd 75 QRS 72 QT 332 T 82 QTc 429 Conclusion Sinus tachycardia...rate> 99 Nonspecific T abnormalities, lateral leads...T <-0.10mV, I aVL V5 V6
--- NOTE | 2023-10-25 17:20 | W.ED.GENAD ---
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 pending [facility] consult, could be admitted here if no need for transfer with specific recc's from [facility] cards on heparin and timing of stress test. Home meds reconciled. Given 2gm Cefepime while in ED, repleting mg++ NO Chest pain throughout ED visit Last updated by Jose Raul Shankar PA at 10/25/23 21:59
[2023-10-25 17:47] LABS: BE (Venous) -1 mmol/L (-2-3); HCO3 (Venous) 25 mmol/L (23-28); O2 Sat (Venous) 78 %; TCO2 (Venous) 23 mmol/L (24-29); pCO2 (Venous) 48 mmHg (41-51); pH (Venous) 7.33 (7.31-7.41); pO2 (Venous) 45 mmHg
[2023-10-25 17:49] LABS: Abs Immature Grans 0.05 10^3/uL (0.0-0.06); Absolute Basophil Count 0.02 10^3/uL (0.0-0.2); Absolute Eosinophil Count 0.02 10^3/uL (0.0-0.7); Absolute Lymphocyte Count 0.12 10^3/uL (1.2-3.4); Absolute Neutrophil Count 11.77 10^3/uL (1.2-6.7); Basophils % 0.2 %; Eosinophils % 0.2 %; HCT 44.1 % (36.0-46.0); Immature Grans % 0.4 %; MCH 38.3 pg (27.0-33.0); MCV 113 fL (80-95); MPV 10.1 fL (8.0-11.0); Monocytes % 3.2 %; Platelet Count 160 10^3/uL (130-400); RBC 3.92 10^6/uL (3.93-5.22); RDW 12.3 % (11.7-14.6); RDW-SD 51.7 fL; WBC 12.39 10^3/uL (4.4-10.8)
[2023-10-25 17:51] LABS: Lactate 3.3 mmol/L (0.6-1.4)
[2023-10-25 17:58] LABS: Diff Comment RBC Morph Reviewed; Macrocytosis 2+
[2023-10-25 18:04] LABS: Magnesium 1.3 mg/dL (1.8-2.4)
--- NOTE | 2023-10-25 18:05 | DI.RAD_ITS ---
Exam(s) XR PORTABLE CHEST AP EXAM: XR PORTABLE CHEST AP CLINICAL HISTORY: SpO2 78% on arrival. TECHNIQUE: 2D digital imaging was performed. COMPARISON: CR XR CHEST 2V PA LATERAL from 05/26/2019 FINDINGS: Single AP portable view. Heart size is upper normal. The mediastinum is not widened. Lungs are clear. No infiltrates nor obvious pleural effusions. IMPRESSION: No acute pulmonary findings on this single AP portable view of the chest. DATA REPOSITORY: RADIATION DOSE DELIVERED:
[2023-10-25 18:14] LABS: ALT 30 U/L (14-59); AST 24 U/L (15-37); Albumin 4.5 g/dL (3.4-5.0); Alkaline Phosphatase 72 U/L (46-116); Anion Gap 16.8 mmol/L (3-11); BUN 12 mg/dL (7-18); Bilirubin, Total 1.1 mg/dL (0.2-1.0); CO2 25.2 mmol/L (21.0-32.0); CREATININE 0.8 mg/dL (0.55-1.02); Calcium 9.3 mg/dL (8.5-10.1); Chloride 93 mmol/L (98-107); Estimated GFR 81.72 (mL/min/1.73m2); Glucose 155 mg/dL (74-106); NT-proBNP 2682 pg/mL (<300); Potassium 4.7 mmol/L (3.5-5.1); Sodium 135 mmol/L (136-145); Total Protein 7.8 g/dL (6.4-8.2)
[2023-10-25 18:23] LABS: Troponin I 108 ng/L (< or =60)
[2023-10-25 18:30] LABS: D-Dimer 2699 ng/mlFEU (<500)
--- NOTE | 2023-10-25 18:33 | DI.CT_ITS ---
Exam(s) CT CHEST PE ABD PELVIS W EXAM: CT CHEST PE ABD PELVIS W CLINICAL HISTORY: elevated d-dimer, hypoxia. TECHNIQUE: Imaging Protocol: Axial CT angiography was performed with multi-slice acquisition and m ulti-planar and/or 3D reconstructions. CONTRAST MATERIAL: Intravenous: Omnipaque 350 Contrast volume:100 ml Oral: None COMPARISON: CT CT ABDOMEN PELVIS W from 06/28/2019 FINDINGS: CHEST: PULMONARY ARTERIES: There are no intra-arterial filling defects to suggest the presence of acute pulm onary emboli. LUNGS: Small nodule in the sub apical aspect of the left upper lobe measuring 4 mm. This may be scar ring. No confluent infiltrates nor pleural effusions. No other pulmonary nodules. No findings in t rachea and mainstem bronchi.No bronchiectasis. MEDIASTINUM: There is no hilar nor mediastinal adenopathy. CARDIAC: Heart size is normal. There is no pericardial effusion. There is no significant shift of t he interventricular septum.Caliber of the thoracic aorta is within normal limits. No evidence of aor tic dissection. OSSEOUS: No significant osseous lesions.No acute fractures.. ABDOMEN: There is no ascites. LIVER: There are no focal hepatic lesions nor dilatation of intrahepatic ducts. GALLBLADDER/BILIARY: No obvious gallbladder pathology. CBD is not dilated. PANCREAS: No evidence of pancreatic mass nor dilatation of the pancreatic duct. SPLEEN: Spleen is not enlarged. There are no intrasplenic lesions. Splenic and portal veins are segura nt. ADRENALS: There are no significant adrenal masses. KIDNEYS:No cysts evident. No calculi nor hydronephrosis. No solid renal masses. There appears to be some cortical scarring in the kidneys, more so on the right side. ABDOMINAL AORTA: Abdominal aorta is heavily calcified but not enlarged. Iliac arteries are also heav federico calcified but not enlarged. LYMPH NODES: There is no retroperitoneal or para-aortic adenopathy. ABDOMINAL WALL/GI: No evidence of significant anterior abdominal wall hernia. No bowel obstruction. PELVIS: LYMPH NODES: There is no intrapelvic nor inguinal adenopathy. GI: No evidence of appendicitis.There is diverticulosis left side of the colon. There is some mild s treaking around diverticuli in the upper sigmoid upper left iliac fossa consistent with diverticuliti s. There is an anastomosis in the lower sigmoid from prior partial sigmoid resection.No abnormal fin dings at this level. URINARY BLADDER: There is uniform thickening of the urinary bladder wall noted. No asymmetric mass. No radiopaque calculi. Pelvic ureters not dilated. REPRODUCTIVE: There are dilated veins on both sides the uterus consistent with the pelvic congestion syndrome. These drain into prominent gonadal veins which not appear thrombosed. Uterus size is age- appropriate. Retroverted. No abnormal adnexal masses seen. No free fluid in the pelvis. OSSEOUS: No significant osseous lesions. No fractures. IMPRESSION: 1. No significant acute intrathoracic findings and no evidence of acute pulmonary emboli. 2. There is extensive diverticulosis of the descending-left colon. There is evidence of diverticulit is of the upper sigmoid in the upper left iliac fossa. No free air. No abscess evident at this time . 3. There is uniform thickening of the urinary bladder wall, probably cystitis. 4. There are dilated veins on both sides of the uterus consistent with pelvic congestion syndrome. T hese veins drain into a nonthrombosed gonadal veins. 5. Other findings as above. RADIATION DOSE DELIVERED: Total DLP DATA REPOSITORY: All CT scans at this facility are submitted to the National Radiology Data Registry (NRDR) Dose Index Registry (DIR) with the [employer] (ACR). RADIATION OPTIMIZATION: All CT scans at this facility use at least one of these dose optimization te chniques: automated exposure control; mA and/or kV adjustment per patient size (includes targeted exa ms where dose is matched to clinical indication); or iterative reconstruction.
[2023-10-25] MEDS: Normal Saline 1,000 ML 1000 ML IV (18:46)
[2023-10-25] MEDS: ACETAMINOPHEN 1,000 MG/100 ML BTL 400 MG IVPB (18:46)
[2023-10-25] MEDS: methylPREDNISolone SUCC 125 MG VIAL IVP (18:46)
[2023-10-25 18:47] LABS: Procalcitonin 1.5 ng/mL
[2023-10-25 18:47] LABS: COVID-19 PCR Negative (Negative); Influenza A PCR Negative (Negative); Influenza B PCR Negative (Negative); RSV PCR Negative (Negative)
[2023-10-25] MEDS: Albuterol/Ipratropium 3 ML UPD VIAL (18:47)
[2023-10-25 18:48] LABS: Source Nasopharynx
[2023-10-25] MEDS: Omnipaque 350 MG/ML 100 ML BTL 75 ML IJ (19:03)
[2023-10-25] MEDS: Normal Saline - Diluent 50 ML VIAL IJ (19:04)
[2023-10-25] MEDS: CEFEPIME 2 GM in Normal Saline 100 ML IVPB (19:30)
--- NOTE | 2023-10-25 19:52 | DI.VRAD_ITS ---
PROCEDURE INFORMATION: Exam: CTA Chest With Contrast CTA Abdomen and Pelvis With Contrast Exam date and time: 10/25/2023 7:11 PM Age: 63 years old Clinical indication: Other: Elevated d-dimer, hypoxia, likely pyelonephritis TECHNIQUE: Imaging protocol: Computed tomographic angiography of the chest with contrast. Exam focused on the arteries. Computed tomographic angiography of the abdomen and pelvis with contrast. Exam focused on the arteries. 3D rendering (Not supervised by radiologist): MIP and/or 3D reconstructed images were created by the technologist. Contrast material: OMNIPAQUE; Contrast volume: 75 ml; Contrast route: INTRAVENOUS (IV); COMPARISON: CR XR PORTABLE CHEST AP 10/25/2023 5:52 PM FINDINGS: VASCULATURE: Pulmonary arteries: No pulmonary emboli. Aorta: No aortic aneurysm. No aortic dissection. Celiac trunk and mesenteric arteries: Atherosclerosis with mild stenosis of celiac trunk and SMA. Renal arteries: At least moderate stenosis of 2 right and 1 left renal arteries. Iliac arteries: Significant multifocal atherosclerosis bilaterally with multifocal [id number] stenosis. CHEST: Lungs: Moderate pulmonary emphysema. 6 cm left apical pulmonary nodule associated with minor scarring. Follow-up as per institutional protocol. Scattered microatelectasis. No airspace consolidation. Pleural spaces: No pneumothorax. No pleural effusion. Heart: Unremarkable. No cardiomegaly. No pericardial effusion. ABDOMEN AND PELVIS: Liver: No mass. Gallbladder and bile ducts: No calcified stones. No ductal dilation. Pancreas: Diminutive pancreas without inflammation on CT. No pancreatic ductal dilation. Spleen: No splenomegaly. Adrenal glands: No mass. Kidneys and ureters: Chronic appearing renal cortical scarring cchwn-pmwwqwx-xyxn-left mild in severity. No renal masses or hydronephrosis bilaterally. Stomach and bowel: Surgical suture in the region of the sigmoid colon grossly satisfactory appearance. Difficult to exclude minimal edema around descending colonic diverticula. Pancolonic diverticulosis. No focal pathology in the small bowel. Appendix: No evidence of appendicitis. Intraperitoneal space: No free air. No significant fluid collection. Urinary bladder: Moderate wall thickening of the urinary bladder appears relatively symmetric. Reproductive: Prominent adnexal and gonadal vasculature of uncertain etiology. Can be benign and incidental, can also be seen in pelvic congestion syndrome. Lymph nodes: No enlarged lymph nodes. Bones/joints: No acute fracture or subluxation. Minor chronic appearing loss of height anteriorly midthoracic spine. Mild lumbar dextroscoliosis and degenerative changes. Soft tissues: Unremarkable. IMPRESSION: 1. Suspected minimal acute descending diverticulosis, clinical correlation necessary. 2. Favor a moderate cystitis over neurogenic disease if the bladder or malignancy. 3. Incidental/chronic findings as above. Dictated and Authenticated by: Terri Venegas MD. Ordering:ANA Blunt MD
[2023-10-25] MEDS: MAGNESIUM SULFATE 2 GM/50 ML BAG IVINF (20:29)
[2023-10-25 21:19] LABS: Bilirubin Negative (Negative); Blood Small (Negative); Clarity Clear (Clear); Glucose Negative (Negative); Ketones 15 mg/dL (Negative); Leukocyte Esterase Negative (Negative); Nitrite Negative (Negative); Specific Gravity 1.015 (1.005-1.025); Urobilinogen 0.2 mg/dL (Up to 0.2)
[2023-10-25 21:21] LABS: Bacteria Rare HPF (Negative); C & S Indicated? No; Casts Negative LPF (Negative); Crystals Negative HPF (Negative); Epithelial Cells Rare HPF (Negative); Mucus Negative (Negative); WBC Negative HPF (0-5)
--- NOTE | 2023-10-25 21:30 | RT.EKG_ITS ---
APPROVED REPORT Exam: Resting ECG Reason for Exam: +trop Patient Location: E HR:78 bpm ECG Measurements Heart Rate 78 AXIS CA 177 P 80 QRSd 79 QRS 68 QT 411 T 78 QTc 470 Conclusion Sinus rhythm...normal P axis, V-rate 60- 99 sinus rhythm ,normal axis, nomral intervals, non ischemic
[2023-10-25 21:34] LABS: Troponin I 157 ng/L (< or =60)
[2023-10-25] MEDS: Aspirin 81 MG CHEW 324 MG CH (21:40)
[2023-10-25] MEDS: Albuterol/Ipratropium 3 ML UPD VIAL 9 ML UPD (21:55)
[2023-10-25] MEDS: nitroGLYcerin 0.4 MG TAB SL (21:56)
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
--- NOTE | 2023-10-25 22:06 | W.EDPROG ---
Date of service: 10/25/23 Time of Service: 21:58 Medical Decision Making This patient was signed out to me. Please see previous notes for H&P and initial eval. In brief, 63yo F presented with shortness of breath, found to have COPD exacerbation and likely [id number]. No chest pain at any point. Plan for admission; [facility] consult out for reccs regarding heparin and timiing of stress test. Discussed with [facility] cardiology; recommended against heparin, advised echo in the morning and stress test prior to discharge. Transferred to the floor. Quality:[facility] Health Related Social Needs: No Data to Display Sign Out Sign Out Data: Sign Out Comment: Patient has acute hypoxic resp failure, sepsis (lactate 3.3, procal 1.5 with known UTI on day 2 of macrobid tx), emphysema/COPD on CTA, and troponin's trending up with elev BNP likely type 2 [place]. Patient has pending [facility] consult, could be admitted here if no need for transfer with specific recc's from [facility] cards on heparin and timing of stress test. Home meds reconciled. Given 2gm Cefepime while in ED, repleting mg++ NO Chest pain throughout ED visit Last updated by Jose Raul Shankar PA at 10/25/23 21:59 Discharge Plan Disposition Patient Disposition: Admit to [facility] Condition: Stable Discharge Details Clinical Impression: Hypoxic respiratory failure, Non-ST elevation [place] (NSTEMI), Sepsis Admit Date/Time: 10/25/23 22:01 Admit Provider: Nicolas Majano Attending Provider: Nicolas Majano Primary Care Provider: Chidi Mccormack ED Provider: Jen Andrew Discharge Data Discharge Date/Time-TO BE ENTERED AT DEPARTURE: 10/25/23 23:01
[2023-10-25 23:51] LABS: Lactate 3.5 mmol/L (0.6-1.4)
[2023-10-26] VITALS (13 sets, daily range): BP systolic 170–198; BP diastolic 70–96; PULSE 51–89; RESP 2–18; TEMP 36.4–37.2; O2SAT 88–98
[2023-10-26] MEDS: Atorvastatin 20 MG TAB PO ×2 (00:37→20:35)
[2023-10-26] MEDS: Albuterol/Ipratropium 3 ML UPD VIAL UPD ×2 (00:44→05:17)
[2023-10-26] MEDS: Gabapentin 300 MG CAP PO ×2 (01:10→20:35)
[2023-10-26] MEDS: diphenhydrAMINE 25 MG CAP PO ×2 (01:10→20:35)
[2023-10-26] MEDS: Levothyroxine 88 MCG TAB PO (06:01)
[2023-10-26 07:18] LABS: HCT 34.2 % (36.0-46.0); HGB 12.1 g/dL (11.2-15.7); MCH 38.8 pg (27.0-33.0); MCHC 35.4 % (32.0-36.0); MCV 110 fL (80-95); MPV 10.6 fL (8.0-11.0); Platelet Count 143 10^3/uL (130-400); RBC 3.12 10^6/uL (3.93-5.22); RDW 11.9 % (11.7-14.6); RDW-SD 48.6 fL; WBC 9.81 10^3/uL (4.4-10.8)
[2023-10-26 07:37] LABS: Anion Gap 11.6 mmol/L (3-11); BUN 14 mg/dL (7-18); CO2 26.4 mmol/L (21.0-32.0); CREATININE 0.7 mg/dL (0.55-1.02); Calcium 8.8 mg/dL (8.5-10.1); Chloride 91 mmol/L (98-107); Estimated GFR 95.92 (mL/min/1.73m2); Glucose 219 mg/dL (74-106); Magnesium 2.1 mg/dL (1.8-2.4); Potassium 3.9 mmol/L (3.5-5.1); Sodium 129 mmol/L (136-145)
[2023-10-26 07:45] LABS: Troponin I 81 ng/L (< or =60)
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
[2023-10-26] MEDS: Aspirin E.C. 81 MG TABEC PO (08:41)
[2023-10-26] MEDS: CEFEPIME 2 GM in Normal Saline 100 ML IVPB (08:42)
[2023-10-26] MEDS: Enoxaparin 30 MG/0.3 ML SYR SC (08:42)
[2023-10-26] MEDS: Normal Saline Flush 10 ML SYR IVP ×2 (08:43→20:36)
--- NOTE | 2023-10-26 09:11 | NUR.NOTE ---
Nursing Note: Patient stated she had an interaction with Dr. Majano this morning and he told her could be discharged today. Patient stated I am leaving at noon regardless of doctors orders educated patient on need for staying and lab values for the morning that need closer monitoring. This nurse attempted to initiate seizure precautions for low sodium and alcohol use which patient refused to have put on the bed rails. This nurse educated her on the importance and patient still adamantly refused. Patient also stated I won't take my morning prednisone because I don't have COPD and the doctors are wrong prednisone was charted as patient refused.
[2023-10-26 12:15] LABS: Lactate 2.4 mmol/L (0.6-1.4)
[2023-10-26] MEDS: predniSONE 20 MG TAB 40 MG PO (13:15)
[2023-10-26] MEDS: Lactated Ringers 500 ML IV (13:15)
--- NOTE | 2023-10-26 15:20 | CHAPLAIN ---
Kayla was sitting up in bed when I visited. She told me she's agreed to stay her today, but will check herself out tomorrow if needed. There's nothing more they're going to do for me here, she said. She's been receiving IV antibiotics. Kayla lives in [place] with a family. She recently got a new kitten, Spencer Elijah, and enjoyed telling me about him. Kayla said the food has not been good here and she's hungry. She's not been able to use salt and that bothers her. Kayla told me she was a patient at [facility] for three months.
[2023-10-26] MEDS: Atenolol 25 MG TAB PO (15:48)
[2023-10-26] MEDS: Losartan 50 MG TAB PO (15:48)
--- NOTE | 2023-10-26 17:12 | W.PM.PROGNOT ---
Date of Service Date of service: 10/26/23 Time of Service: 17:13 Assessment and Plan Assessment and plan (1) COPD with acute exacerbation: Status: Resolved Assessment and plan: Patient has documented history of COPD though apparently has not had PFTs Was treated with methylprednisolone in the emergency department and nebulizers which did improve patient's shortness of breath and hypoxia Continue nebulizers every 6 hours, as needed albuterol every 2 hour Prednisone 40 mg p.o. daily Azithromycin 500 mg x 1 and 250 mg x 4d Recommend close follow-up follow-up with PCP at discharge for PFTs (2) Severe sepsis: Status: Acute Assessment and plan: continue cefepime BC pending VSS; afebrile Lactic acid down to 2.4; IVF bolus; repeat at 1800h (3) UTI (urinary tract infection): Status: Resolved Assessment and plan: urine negative for infection (4) Demand ischemia: Status: Acute Assessment and plan: Third troponin down Patient denied any chest pain, and was without EKG changes (5) Acute respiratory failure with hypoxia: Status: Acute Assessment and plan: Secondary to acute exacerbation of COPD as noted above Patient back to room air upon arrival to MedSurg unit (6) Hyperlipidemia: Status: Chronic Assessment and plan: Continue home regimen (7) Essential hypertension: Status: Chronic Assessment and plan: Continue home regimen (8) Mild cognitive impairment: Status: Acute Subjective Subjective Patient reports: no new complaints, tolerating liquids well, tolerating a regular diet, voiding w/o difficulty and afebrile; denies diarrhea or vomiting Interval history since last seen: Patient would like to go home - explained that we were waiting for BC, she said she understood and would stay until we have some results. Exam Const General: cooperative, comfortable, no acute distress, well developed and ill appearing chronically Nutritional Appearance: well nourished and cachectic Orientation: alert and awake HENTN Head: normal to inspection Mouth: moist mucous membranes Resp Effort & Inspection: normal respiratory effort, able to speak in complete sentences and no respiratory distress Auscultation: clear to auscultation bilaterally, no rales, no rhonchi and no wheezes Cardio Rate: regular rate Rhythm: regular rhythm Heart Sounds: S1 normal and S2 normal GI Inspection: normal to inspection and non-distended Palpation: soft, no hepatosplenomegaly and No ascites Auscultation: normal bowel sounds Back/Spine/Pelvis Back: no CVA tenderness Skin General skin exam: no rashes or lesions noted Trauma: no lacerations or abrasions Neuro General: patient alert and patient awake Cognition: normal cognition Speech: speech normal Gait: normal gait Psych Appearance: grossly normal and well kempt Mental Status: mental status grossly normal Speech and Movement: speech and movement normal Objective Last Vital Signs Temp 37.0 C 10/26/23 15:04 Pulse 76 10/26/23 15:04 Resp 18 10/26/23 15:04 BP 190/90 H 10/26/23 15:04 Pulse Ox 96 10/26/23 15:04 Laboratory Results - last 24 hr 10/25/23 10/25/23 10/25/23 17:28 17:40 20:45 WBC 12.39 H RBC 3.92 L Hgb 15.0 Hct 44.1 MCV 113 H MCH 38.3 H MCHC 34.0 RDW 12.3 Plt Count 160 MPV 10.1 Immature Gran % 0.4 Neutrophils % 95.0 Lymphocytes % 1.0 Monocytes % 3.2 Eosinophils % 0.2 Basophils % 0.2 Nucleated RBC % 0.0 Absolute Neutrophils 11.77 H Absolute Lymphocytes 0.12 L Absolute Monocytes 0.40 Absolute Eosinophils 0.02 Absolute Basophils 0.02 RBC Morphology See Below Macrocytosis 2+ D-Dimer 2699 H VBG pH 7.33 VBG pCO2 48 VBG pO2 45 VBG HCO3 25 VBG Total CO2 23 L VBG O2 Saturation 78 VBG Base Excess -1 VBG Lactate 3.3 H* Sodium 135 L Potassium 4.7 Chloride 93 L Carbon Dioxide 25.2 Anion Gap 16.8 H BUN 12 Creatinine 0.8 Est GFR (CKD-EPI 2020) 81.72 Glucose 155 H Calcium 9.3 Magnesium 1.3 L Total Bilirubin 1.1 H AST 24 ALT 30 Alkaline Phosphatase 72 Troponin I 108 H* Cancelled NT-Pro-B Natriuret Pep 2682 H Total Protein 7.8 Albumin 4.5 Procalcitonin 1.5 Urine Color Urine Clarity Urine pH Ur Specific [place] Urine Protein Urine Ketones Urine Blood Urine Nitrite Urine Bilirubin Urine Urobilinogen Ur Leukocyte Esterase Urine RBC Urine WBC Ur Epithelial Cells Urine Crystals Urine Bacteria Urine Casts Urine Mucus Ur Culture Indicated? Urine Glucose COVID-19 Source Nasopharynx SARS-CoV-2 (PCR) Negative Influenza Type A (PCR) Negative Influenza Type B (PCR) Negative RSV (PCR) Negative 10/25/23 10/25/23 10/25/23 21:05 21:13 23:45 WBC RBC Hgb Hct MCV MCH MCHC RDW Plt Count MPV Immature Gran % Neutrophils % Lymphocytes % Monocytes % Eosinophils % Basophils % Nucleated RBC % Absolute Neutrophils Absolute Lymphocytes Absolute Monocytes Absolute Eosinophils Absolute Basophils RBC Morphology Macrocytosis D-Dimer VBG pH VBG pCO2 VBG pO2 VBG HCO3 VBG Total CO2 VBG O2 Saturation VBG Base Excess VBG Lactate 3.5 H* Sodium Potassium Chloride Carbon Dioxide Anion Gap BUN Creatinine Est GFR (CKD-EPI 2020) Glucose Calcium Magnesium Total Bilirubin AST ALT Alkaline Phosphatase Troponin I 157 H* NT-Pro-B Natriuret Pep Total Protein Albumin Procalcitonin Urine Color Yellow Urine Clarity Clear Urine pH 6.0 Ur Specific [place] 1.015 Urine Protein 30 H Urine Ketones 15 H Urine Blood Small H Urine Nitrite Negative Urine Bilirubin Negative Urine Urobilinogen 0.2 Ur Leukocyte Esterase Negative Urine RBC 5-10 H Urine WBC Negative Ur Epithelial Cells Rare Urine Crystals Negative Urine Bacteria Rare Urine Casts Negative Urine Mucus Negative Ur Culture Indicated? No Urine Glucose Negative COVID-19 Source SARS-CoV-2 (PCR) Influenza Type A (PCR) Influenza Type B (PCR) RSV (PCR) 10/26/23 10/26/23 06:21 12:05 WBC 9.81 RBC 3.12 L Hgb 12.1 D Hct 34.2 L MCV 110 H MCH 38.8 H MCHC 35.4 RDW 11.9 Plt Count 143 MPV 10.6 Immature Gran % Neutrophils % Lymphocytes % Monocytes % Eosinophils % Basophils % Nucleated RBC % Absolute Neutrophils Absolute Lymphocytes Absolute Monocytes Absolute Eosinophils Absolute Basophils RBC Morphology Macrocytosis D-Dimer VBG pH VBG pCO2 VBG pO2 VBG HCO3 VBG Total CO2 VBG O2 Saturation VBG Base Excess VBG Lactate 2.4 H* Sodium 129 L Potassium 3.9 Chloride 91 L Carbon Dioxide 26.4 Anion Gap 11.6 H BUN 14 Creatinine 0.7 Est GFR (CKD-EPI 2020) 95.92 Glucose 219 H Calcium 8.8 Magnesium 2.1 Total Bilirubin AST ALT Alkaline Phosphatase Troponin I 81 H* NT-Pro-B Natriuret Pep Total Protein Albumin Procalcitonin Urine Color Urine Clarity Urine pH Ur Specific [place] Urine Protein Urine Ketones Urine Blood Urine Nitrite Urine Bilirubin Urine Urobilinogen Ur Leukocyte Esterase Urine RBC Urine WBC Ur Epithelial Cells Urine Crystals Urine Bacteria Urine Casts Urine Mucus Ur Culture Indicated? Urine Glucose COVID-19 Source SARS-CoV-2 (PCR) Influenza Type A (PCR) Influenza Type B (PCR) RSV (PCR) PAWSS Have you Been Recently Intoxicated or Drunk Within the Last 30 days?: No Have you Ever Experienced Previous Episodes of Alcohol Withdrawal?: No Have you ever Experienced Withdrawal Seizures?: No Have you ever Experienced Delirium Tremens(DT)s?: No Have you ever undergone Alcohol Rehabilitation Treatment (i.e, inpt ot outpatient treatment programs)?: No Have you ever Experienced Blackouts?: No Have you ever Combined Alcohol with other Downers within the last 90 days?: No Have you ever Combined Alcohol with any other Substance of Abuse during the last 90 days?: No Positive Blood Alcohol level on Presentation? [PCS.BAL]: No Evidence of Increased Autonomic Activity (i.e. HR>120, tremor, sweating, agitation, nausea)?: No Result: 0 Time Spent with Patient Time Spent with Patient: 35-49 minutes Time was spent: preparing to see the patient(eg.review tests), ordering medications,tests, procedures, referring, communicating with other health career based intervention coordinator, indepentently interpreting results, counseling the patient and care coordination
[2023-10-26] MEDS: AZITHROMYCIN 500 MG in Normal Saline 250 ML 83.302 MG IVPB (17:24)
[2023-10-26 18:13] LABS: Lactate 1.7 mmol/L (0.6-1.4)
[2023-10-26 18:14] LABS: Abs Immature Grans 0.03 10^3/uL (0.0-0.06); Absolute Basophil Count 0.02 10^3/uL (0.0-0.2); Absolute Eosinophil Count 0.07 10^3/uL (0.0-0.7); Absolute Lymphocyte Count 0.19 10^3/uL (1.2-3.4); Absolute Monocyte Count 0.15 10^3/uL (0.1-0.8); Absolute Neutrophil Count 6.39 10^3/uL (1.2-6.7); Basophils % 0.3 %; HCT 31.3 % (36.0-46.0); HGB 11.2 g/dL (11.2-15.7); Immature Grans % 0.4 %; Lymphocytes % 2.8 %; MCH 39.2 pg (27.0-33.0); MCHC 35.8 % (32.0-36.0); MCV 109 fL (80-95); MPV 10.4 fL (8.0-11.0); Monocytes % 2.2 %; Neutrophils % 93.3 %; Platelet Count 132 10^3/uL (130-400); RBC 2.86 10^6/uL (3.93-5.22); RDW 11.9 % (11.7-14.6); RDW-SD 47.9 fL; WBC 6.85 10^3/uL (4.4-10.8)
[2023-10-26] MEDS: Acetaminophen 325 MG TAB PO (20:36)
[2023-10-26] MEDS: Calcium Carbonate *TUMS* 500 MG CHEW 1000 MG PO (20:45)
[2023-10-26] MEDS: Albuterol 2.5 MG/3 ML INH SOLN VIAL UPD (21:04)
[2023-10-27] VITALS (9 sets, daily range): BP systolic 163–198; BP diastolic 83–96; PULSE 47–94; RESP 2–20; TEMP 36.5–37; O2SAT 52–99
[2023-10-27] MEDS: Lisinopril 10 MG TAB 5 MG PO (01:01)
[2023-10-27] MEDS: Metoprolol 25 MG TAB PO (01:01)
[2023-10-27] MEDS: Albuterol/Ipratropium 3 ML UPD VIAL UPD ×2 (05:07→10:52)
[2023-10-27 06:35] LABS: Abs Immature Grans 0.01 10^3/uL (0.0-0.06); Absolute Basophil Count 0.01 10^3/uL (0.0-0.2); Absolute Eosinophil Count 0.33 10^3/uL (0.0-0.7); Absolute Lymphocyte Count 0.52 10^3/uL (1.2-3.4); Absolute Monocyte Count 0.32 10^3/uL (0.1-0.8); Absolute Neutrophil Count 3.65 10^3/uL (1.2-6.7); Basophils % 0.2 %; Eosinophils % 6.8 %; HCT 30.6 % (36.0-46.0); HGB 10.5 g/dL (11.2-15.7); Immature Grans % 0.2 %; Lymphocytes % 10.7 %; MCH 38.5 pg (27.0-33.0); MCHC 34.3 % (32.0-36.0); MPV 10.5 fL (8.0-11.0); Monocytes % 6.6 %; Neutrophils % 75.5 %; Platelet Count 126 10^3/uL (130-400); RBC 2.73 10^6/uL (3.93-5.22); RDW 12.2 % (11.7-14.6); WBC 4.84 10^3/uL (4.4-10.8)
[2023-10-27 06:42] LABS: MCV 112 fL (80-95)
[2023-10-27 06:54] LABS: Anion Gap 6.8 mmol/L (3-11); BUN 14 mg/dL (7-18); CO2 29.2 mmol/L (21.0-32.0); CREATININE 0.6 mg/dL (0.55-1.02); Calcium 8.9 mg/dL (8.5-10.1); Chloride 97 mmol/L (98-107); Estimated GFR 99.55 (mL/min/1.73m2); Glucose 113 mg/dL (74-106); Potassium 4.2 mmol/L (3.5-5.1); Sodium 133 mmol/L (136-145)
[2023-10-27] MEDS: Levothyroxine 88 MCG TAB PO (07:41)
[2023-10-27] MEDS: Aspirin E.C. 81 MG TABEC PO (08:36)
[2023-10-27] MEDS: Normal Saline Flush 10 ML SYR IVP (08:36)
[2023-10-27] MEDS: predniSONE 20 MG TAB 40 MG PO (08:36)
[2023-10-27] MEDS: Enoxaparin 30 MG/0.3 ML SYR SC (08:38)
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
--- NOTE | 2023-10-27 10:24 | CMDISCH_ITS ---
Date of service: 10/27/23 Time of Service: 10:24 LACE Index Scoring Tool Questions: Length of Stay (in days): 2 Was the patient admitted via the E.D.?: Yes E.D. Visits: 1 Answers: Total Score: 6 Risk of Readmission: Low Risk Care Management Discharge Plan Reason for Hospitalization: Acute respiratory failure with hypoxia Discharge Plan: Kayla is discharged back to the [facility] home where she resides. She is transported by her home provider. Kayla will follow up with community providers and her discharge plan of care as instructed. No new services are ordered at the time of this discharge. Patient/Family Education Needs: Review discharge instructions, limitations and plan to follow up with community providers. Discuss ask me three. SDOH Health Related Social Needs: Health related social needs risk of homeless Health related social needs: housing instability, housed, with risk of homelessness(Z59.811) Referrals and interventions: 4 plus roommates.
== END 2023-10-27 11:05 | disposition home or self-care (01) | DRG 871 ==
LOC: ER 22:05 → MS 22:57
PROVIDERS: Nurse Practitioner Family; Physician Assistant; Admitting Provider Family Medicine; Emergency Provider Student in an Organized Health Care Education/Training Program; PCP Family Medicine; Visit Provider Family Medicine
DX: A41.9 Sepsis, unspecified organism (principal); J96.01 Acute respiratory failure with hypoxia; N39.0 Urinary tract infection, site not specified; I24.89 Other forms of acute ischemic heart disease; J44.1 Chronic obstructive pulmonary disease with (acute) exacerbation; E87.1 Hypo-osmolality and hyponatremia; E46 Unspecified protein-calorie malnutrition; Z68.1 Body mass index [BMI] 19.9 or less, adult; R65.20 Severe sepsis without septic shock; I10 Essential (primary) hypertension; E78.5 Hyperlipidemia, unspecified; I25.2 Old myocardial infarction; Z66 Do not resuscitate; F10.96 Alcohol use, unspecified with alcohol-induced persisting amnestic disorder; E53.8 Deficiency of other specified B group vitamins; D64.9 Anemia, unspecified; E03.9 Hypothyroidism, unspecified; G62.9 Polyneuropathy, unspecified
CPT/HCPCS: 00123; 36415; 71275; 74177; 80048; 80053; 82805; 84145; 85027; 87040; 87637; 93005; 94640; 96365; 96366; 96367; 96368; 96375; 99285; 71045; 81003; 81015; 83605; 83735; 83880; 84484; 85025; 85379; 87086; 93010; 94760; 99223; 99232; 99239; J0131; J0456; J0692; J1650; J2919; J3475; J3490; J7512; J7613; J7620

== ENCOUNTER 2023-11-23 17:19 | Outpatient (CLI) | payer MEDICARE, MEDICAID, SELFPAY ==
[2023-11-23 11:17] LABS: Anion Gap 11.3 mmol/L (3-11); BUN 5 mg/dL (7-18); CO2 28.7 mmol/L (21.0-32.0); CREATININE 0.6 mg/dL (0.55-1.02); Calcium 9.9 mg/dL (8.5-10.1); Calculated LDL 80 mg/dL (<100); Chloride 96 mmol/L (98-107); Cholesterol 230 mg/dL (<200); Estimated GFR 99.55 (mL/min/1.73m2); Glucose 113 mg/dL (74-106); HDL Cholesterol 134 mg/dL (40-60); Magnesium 1.5 mg/dL (1.8-2.4); Sodium 136 mmol/L (136-145); Triglyceride 83 mg/dL (<150)
[2023-11-23 11:23] LABS: NT-proBNP 341 pg/mL (<300)
[2023-11-23 12:26] LABS: HCT 39.9 % (36.0-46.0); HGB 13.7 g/dL (11.2-15.7); MCH 37.5 pg (27.0-33.0); MCHC 34.3 % (32.0-36.0); MCV 109 fL (80-95); MPV 10.9 fL (8.0-11.0); Platelet Count 177 10^3/uL (130-400); RBC 3.65 10^6/uL (3.93-5.22); RDW 12.2 % (11.7-14.6); WBC 3.76 10^3/uL (4.4-10.8)
== END 2023-11-23 17:20 | disposition home or self-care (01) ==
LOC: LBO 17:21
PROVIDERS: PCP Family Medicine; Visit Provider Nurse Practitioner Family
DX: R89.9 Unspecified abnormal finding in specimens from other organs, systems and tissues (principal); E78.5 Hyperlipidemia, unspecified
CPT/HCPCS: 36415; 80048; 80061; 85027; 83735; 83880

== ENCOUNTER 2023-11-30 14:20 | Outpatient (REF) | payer MEDICARE, MEDICAID, SELFPAY | END 2023-11-30 14:21 | disposition home or self-care (01) | LOC: LBN 14:20 | PROVIDERS: PCP Family Medicine; Visit Provider Family Medicine | DX: N39.0 Urinary tract infection, site not specified (principal) | CPT/HCPCS: 87086 ==

== ENCOUNTER 2023-12-07 10:42 | Outpatient (REF) | payer MEDICARE, MEDICAID, SELFPAY | END 2023-12-07 10:43 | disposition home or self-care (01) | LOC: LBN 10:42 | PROVIDERS: PCP Family Medicine; Visit Provider Family Medicine | DX: R30.0 Dysuria (principal) | CPT/HCPCS: 87086 ==

== ENCOUNTER → 2023-12-18 09:48 | Outpatient (BNVA) | payer MEDICARE, MEDICAID, SELFPAY | PROVIDERS: PCP Family Medicine; Referring Provider Family Medicine; Visit Provider Internal Medicine Critical Care Medicine | DX: J43.1 Panlobular emphysema (principal); R91.1 Solitary pulmonary nodule; I10 Essential (primary) hypertension; I27.20 Pulmonary hypertension, unspecified; Z72.0 Tobacco use | CPT/HCPCS: 99215 ==

== ENCOUNTER 2024-01-03 15:08 | Outpatient (REF) | payer MEDICARE, MEDICAID, SELFPAY | END 2024-01-03 15:09 | disposition home or self-care (01) | LOC: LBN 15:08 | PROVIDERS: PCP Family Medicine; Visit Provider Family Medicine | DX: R35.0 Frequency of micturition (principal); R82.89 Other abnormal findings on cytological and histological examination of urine | CPT/HCPCS: 87086 ==

== ENCOUNTER 2024-01-18 20:00 | Inpatient (IN) | payer MEDICARE, MEDICAID, SELFPAY ==
[2024-01-18] VITALS (21 sets, daily range): BP systolic 108–148; BP diastolic 78–89; PULSE 67–88; RESP 15–29; O2SAT 77–100
--- NOTE | 2024-01-18 20:00 | RT.EKG_ITS ---
APPROVED REPORT Exam: Resting ECG Reason for Exam: short of breath Patient Location: E HR:73 bpm ECG Measurements Heart Rate 73 AXIS CA 165 P 71 QRSd 81 QRS -80 QT 380 T 79 QTc 418 Conclusion Sinus rhythm, rate 73 No interval abnormality, no ectopy No STEMI Q-waves V1, V2, new from 10/25/2023
--- NOTE | 2024-01-18 20:15 | DI.RAD_ITS ---
Exam(s) XR CHEST 2V PA LATERAL EXAM: XR CHEST 2V PA LATERAL CLINICAL HISTORY: hypoxia TECHNIQUE: 2D digital imaging was performed of the chest. Two images were obtained. PA and lateral views were obtained. COMPARISON: CR XR PORTABLE CHEST AP from 10/25/2023 FINDINGS: MEDIASTINUM: Normal. HEART: Normal. PULMONARY VASCULATURE: Normal. LUNGS: The lungs are hyperinflated with flattened diaphragms suggesting underlying COPD. No focal co nsolidating infiltrates are seen. PLEURAL SPACE: No pleural effusion or pneumothorax. BONE:Within normal limits for the patient's age. OTHER FINDINGS:Normal. IMPRESSION: No focal consolidating infiltrates. DATA REPOSITORY: RADIATION DOSE DELIVERED:
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
[2024-01-18 20:31] LABS: BE (Venous) 3 mmol/L (-2-3); HCO3 (Venous) 29 mmol/L (23-28); O2 Sat (Venous) 74 %; TCO2 (Venous) 27 mmol/L (24-29); pCO2 (Venous) 54 mmHg (41-51); pH (Venous) 7.34 (7.31-7.41); pO2 (Venous) 46 mmHg
[2024-01-18 20:33] LABS: Lactate 2.3 mmol/L (0.6-1.4)
[2024-01-18 20:34] LABS: Abs Immature Grans 0.01 10^3/uL (0.0-0.06); Absolute Basophil Count 0.03 10^3/uL (0.0-0.2); Absolute Eosinophil Count 0.08 10^3/uL (0.0-0.7); Absolute Lymphocyte Count 1.05 10^3/uL (1.2-3.4); Absolute Monocyte Count 0.51 10^3/uL (0.1-0.8); Absolute Neutrophil Count 2.73 10^3/uL (1.2-6.7); Basophils % 0.7 %; Eosinophils % 1.8 %; HGB 12.9 g/dL (11.2-15.7); Immature Grans % 0.2 %; Lymphocytes % 23.8 %; MCH 38.7 pg (27.0-33.0); MCHC 34.9 % (32.0-36.0); MCV 111 fL (80-95); MPV 9.7 fL (8.0-11.0); Monocytes % 11.6 %; Neutrophils % 61.9 %; Platelet Count 153 10^3/uL (130-400); RBC 3.33 10^6/uL (3.93-5.22); RDW 14.1 % (11.7-14.6); RDW-SD 57.7 fL; WBC 4.41 10^3/uL (4.4-10.8)
[2024-01-18] MEDS: Normal Saline 500 ML IV (20:34)
[2024-01-18] MEDS: methylPREDNISolone SUCC 125 MG VIAL IVP (20:34)
[2024-01-18] MEDS: Albuterol/Ipratropium 3 ML UPD VIAL 9 ML UPD (20:34)
[2024-01-18 20:51] LABS: Diff Comment RBC Morph Reviewed; Macrocytosis 1+
[2024-01-18] MEDS: MAGNESIUM SULFATE 1 GM/100 ML BAG IVINF (20:52)
[2024-01-18 20:57] LABS: ALT 48 U/L (14-59); AST 77 U/L (15-37); Albumin 4.2 g/dL (3.4-5.0); Alkaline Phosphatase 89 U/L (46-116); Anion Gap 12.3 mmol/L (3-11); BUN 7 mg/dL (7-18); CO2 27.7 mmol/L (21.0-32.0); CREATININE 0.7 mg/dL (0.55-1.02); Calcium 8.9 mg/dL (8.5-10.1); Chloride 90 mmol/L (98-107); Estimated GFR 95.92 (mL/min/1.73m2); Glucose 98 mg/dL (74-106); Magnesium 1.5 mg/dL (1.8-2.4); NT-proBNP 1106 pg/mL (<300); Potassium 3.6 mmol/L (3.5-5.1); Sodium 130 mmol/L (136-145); Total Protein 7.4 g/dL (6.4-8.2)
[2024-01-18 20:58] LABS: Troponin I 112 ng/L (4-51)
[2024-01-18] MEDS: Dextrose 25%-Water 10 ML SYR IVP (21:05)
[2024-01-18 21:28] LABS: COVID-19 PCR Negative (Negative); Influenza A PCR Negative (Negative); Influenza B PCR Negative (Negative); RSV PCR Negative (Negative)
[2024-01-18 21:31] LABS: Source Nasopharynx
[2024-01-18 21:46] LABS: Bilirubin Negative (Negative); Blood Trace-intact (Negative); Clarity Clear (Clear); Glucose Negative (Negative); Ketones Negative (Negative); Leukocyte Esterase Negative (Negative); Nitrite Negative (Negative); Urobilinogen 0.2 mg/dL (Up to 0.2)
[2024-01-18 22:00] LABS: Bacteria Negative HPF (Negative); C & S Indicated? No; Casts Negative LPF (Negative); Crystals Negative HPF (Negative); Epithelial Cells Few HPF (Negative); Mucus Negative (Negative); RBC 0-2 HPF (0-2); WBC 0-2 HPF (0-5)
[2024-01-18] MEDS: Omnipaque 350 MG/ML 100 ML BTL IJ (22:15)
--- NOTE | 2024-01-18 22:15 | DI.VRAD_ITS ---
PROCEDURE INFORMATION: Exam: XR Chest Exam date and time: 01/18/2024 9:27 PM Age: 63 years old Clinical indication: Shortness of breath; Patient HX: SOB TECHNIQUE: Imaging protocol: Radiologic exam of the chest. Views: 2 views. COMPARISON: CT CHEST PE ABD PELVIS W 10/25/2023 7:11 PM FINDINGS: Lungs: Emphysema without airspace consolidation. Pleural spaces: No pleural effusion. No pneumothorax. Heart/Mediastinum: Prominent main pulmonary artery segment suggesting pulmonary artery hypertension. Bones/joints: Chronic bony changes with no acute fracture. IMPRESSION: Emphysema without airspace consolidation. Dictated and Authenticated by: Terri Venegas MD. Ordering:ANA Blunt MD
[2024-01-18] MEDS: Normal Saline - Diluent 50 ML VIAL IJ (22:18)
--- NOTE | 2024-01-18 22:20 | DI.CT_ITS ---
Exam(s) CT CHEST PE CTA EXAM: CT CHEST PE CTA CLINICAL HISTORY: elev trop/bnp, ?PE. TECHNIQUE: Imaging Protocol: Axial CT angiography was performed with multi-slice acquisition and mu lti-planar and/or 3D reconstructions. CONTRAST MATERIAL: Intravenous: Omnipaque 350 contrast volume:[address] ABDOMEN PELVIS W from 05/26/[address] ABDOMEN PELVIS W from 06/28/[address] CHEST PE ABD PELVIS W from 10/25/2023 CR,XR XR CHEST 2V PA LATERAL from 01/18/2024 FINDINGS: The examination is limited due to patient motion artifact. Tracheobronchial tree: Patent where visualized. No bronchiectasis. Pulmonary parenchyma: Moderate centrilobular emphysematous changes are present. No focal consolidati ng infiltrates are present. Pulmonary Arteries: No evidence of filling defect to suggest pulmonary emboli. Mediastinum and Karen: No dominant adenopathy or fluid collection. The esophagus is unremarkable. Pleura: No effusion or pneumothorax. Heart: Mild cardiomegaly. Coronary artery calcifications are present. No pericardial effusion. Aorta: Thoracic aorta non-dilated. No evidence of dissection. There is again seen a faint linear hype r hypodensity in the distal aorta. This did not persist on the venous phase images on the prior exam ination and may reflect artifact. Dissection is considered less likely. Upper abdomen: Unremarkable. Soft tissues: Unremarkable. Bones: Within normal limits for the patient's age. IMPRESSION: 1. The examination is limited due to patient motion artifact. 2. No evidence of pulmonary embolism, thoracic aortic dissection or aneurysm. 3. Moderate centrilobular emphysema. RADIATION DOSE DELIVERED: 28.51mGy.cm Total DLP DATA REPOSITORY: All CT scans at this facility are submitted to the National Radiology Data Registry (NRDR) Dose Index Registry (DIR) with the [employer] (ACR). RADIATION OPTIMIZATION: All CT scans at this facility use at least one of these dose optimization te chniques: automated exposure control; mA and/or kV adjustment per patient size (includes targeted exa ms where dose is matched to clinical indication); or iterative reconstruction.
--- NOTE | 2024-01-18 22:42 | DI.VRAD_ITS ---
PROCEDURE INFORMATION: Exam: CTA Chest With Contrast Exam date and time: 01/18/2024 10:10 PM Age: 63 years old Clinical indication: Patient HX: Elve trop/bnp, ? pe TECHNIQUE: Imaging protocol: Computed tomographic angiography of the chest with contrast. Exam focused on the arteries. 3D rendering (Not supervised by radiologist): MIP and/or 3D reconstructed images were created by the technologist. Radiation optimization: All CT scans at this facility use at least one of these dose optimization techniques: automated exposure control; mA and/or kV adjustment per patient size (includes targeted exams where dose is matched to clinical indication); or iterative reconstruction. Contrast material: [id number]; Contrast volume: 55 ml; Contrast route: INTRAVENOUS (IV); COMPARISON: CT CHEST PE ABD PELVIS W 10/25/2023 7:11 PM FINDINGS: Pulmonary arteries: Mildly prominent central pulmonary arteries suggest chronic mild PA hypertension, similar to prior. Aorta: No aortic aneurysm. No aortic dissection. Lungs: Motion artifact in the lungs. Moderate pulmonary emphysema, similar to prior. A tiny right apical ground-glass peripheral density is similar to prior. No jose eduardo pulmonary edema. Minor scattered air trapping. Multifocal moderate bronchial wall thickening with a small amount of debris in central airways and impaction of distal airways overall slightly worsened. Pleural spaces: No pneumothorax. No pleural effusion. Heart: Mild cardiomegaly is more pronounced. Lymph nodes: Precarinal lymph node upper limits of normal more pronounced than prior. Kidneys: Minor prominence of the left renal pelvis without definite calyceal dilation similar to previous partial imaging. Bones/joints: Chronic bony changes with no acute fracture. Soft tissues: No suspicious lesions. IMPRESSION: 1. No pulmonary emboli are seen. 2. Likely acute on chronic bronchitis, worsening. 3. Additional findings as described. Dictated and Authenticated by: Terri Venegas MD. Ordering:ANA Blunt MD
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
[2024-01-18 23:07] LABS: Troponin I 96 ng/L (4-51)
[2024-01-18 23:39] LABS: ETHANOL BLOOD 249.5 mg/dL (<10)
[2024-01-19] VITALS (20 sets, daily range): BP systolic 142–222; BP diastolic 69–110; PULSE 65–88; RESP 5–26; TEMP 36.5–36.9; O2SAT 91–100
--- NOTE | 2024-01-19 00:53 | W.PC.ACHO ---
Registration Status: Primary Language: Preferred Language: ED Information & Data Chief Complaint SOB 01/18/24 20:29 Triage Note Pt arrives stating she's 01/18/24 20:03 very SOB, feels like congestion. O2 at home has been 70-80s. does not use o2 at home former smoker. reporting right flank pain, has chronic UTIs. just finished 7 days of antibiotics a couple weeks ago Medical / Surgical History (Last Reviewed 01/18/24 @ 23:11 by Brian Green) Mild cognitive impairment Hyperlipidemia (08/21/12) Diverticulitis Palliative care patient Hypothyroidism (Last Reviewed 01/18/24 @ 23:11 by Brian Green) S/P colectomy (12/26/18) Most Recent Vital Signs Pulse 66 01/19/24 00:45 Pulse 65 01/19/24 00:45 Respiratory Rate 18 01/19/24 00:45 Respiratory Effort Short of Breath 01/18/24 20:19 Respiratory Depth Normal 01/18/24 20:19 Respiratory Pattern Normal 01/18/24 20:19 Blood Pressure 171/69 H 01/19/24 00:45 Blood Pressure Mean 103 01/19/24 00:45 Blood Pressure Position Supine 01/18/24 21:36 Pulse Oximetry 97 01/19/24 00:45 Oxygen Delivery Method Room Air 01/18/24 20:03 Oxygen Flow Rate 0 01/18/24 20:03 Pain Level 8 01/18/24 20:03 Allergies hydrochlorothiazide Allergy (Severe, Verified 01/03/24 14:35) RASH morphine Allergy (Severe, Verified 01/03/24 14:35) stops breathing STOPS BREATHING hydralazine Allergy (Intermediate, Verified 01/03/24 14:35) rash reserpine Allergy (Intermediate, Verified 01/03/24 14:35) rash simvastatin Allergy (Intermediate, Verified 01/03/24 14:35) rash Penicillins Allergy (Unknown, Verified 01/03/24 14:35) unknown ezetimibe Adverse Reaction (Intermediate, Verified 01/03/24 14:35) Skin Rash adhesive tape Adverse Reaction (Verified 01/03/24 14:35) itching, redness under iv dressing. [facility] note dated 01/10/19 CANNABINOID Allergy (Unknown, Uncoded 01/03/24 14:35) Swelling/Edema losartan Adverse Reaction (Intermediate, Uncoded 01/03/24 14:35) Skin Rash Precautions Isolation Standard precaution 01/18/24 20:08 Active Medications Generic Name Dose Route Start Last Admin Trade Name Wero PRN Reason Stop Dose Admin Iohexol 100 ml 01/18/24 22:15 01/18/24 22:15 Omnipaque 350 Mg/Ml 100 Ml Btl IJ 02/17/24 23:59 100 ml DIRECTED JIMENEZ Administration Sodium Chloride 50 ml 01/18/24 22:30 01/18/24 22:18 Normal Saline - Diluent 50 Ml Vial IJ 50 ml .FOR DI USE JIMENEZ Administration IV IV Catheter Type [Right Saline Lock Antecubital] IV Catheter Gauge [Right 20 Antecubital] Diagnostics 01/18/24 01/18/24 01/18/24 Range/Units 22:24 21:44 21:26 WBC (4.4-10.8) 10^3/uL RBC (3.93-5.22) 10^6/uL Hgb (11.2-15.7) g/dL Hct (36.0-46.0) % MCV (80-95) fL MCH (27.0-33.0) pg MCHC (32.0-36.0) % RDW (11.7-14.6) % Plt Count (130-400) 10^3/uL MPV (8.0-11.0) fL Immature Gran % % Neutrophils % % Lymphocytes % % Monocytes % % Eosinophils % % Basophils % % Nucleated RBC % (0.0-0.3) % Absolute Neutrophils (1.2-6.7) 10^3/uL Absolute Lymphocytes (1.2-3.4) 10^3/uL Absolute Monocytes (0.1-0.8) 10^3/uL Absolute Eosinophils (0.0-0.7) 10^3/uL Absolute Basophils (0.0-0.2) 10^3/uL RBC Morphology Macrocytosis VBG pH (7.31-7.41) VBG pCO2 (41-51) mmHg VBG pO2 mmHg VBG HCO3 (23-28) mmol/L VBG Total CO2 (24-29) mmol/L VBG O2 Saturation % VBG Base Excess (-2-3) mmol/L VBG Lactate (0.6-1.4) mmol/L Sodium (136-145) mmol/L Potassium (3.5-5.1) mmol/L Chloride (98-107) mmol/L Carbon Dioxide (21.0-32.0) mmol/L Anion Gap (3-11) mmol/L BUN (7-18) mg/dL Creatinine (0.55-1.02) mg/dL Est GFR (CKD-EPI 2020) (mL/min/1.73m2) Glucose (74-106) mg/dL Calcium (8.5-10.1) mg/dL Magnesium (1.8-2.4) mg/dL Total Bilirubin (0.2-1.0) mg/dL AST (15-37) U/L ALT (14-59) U/L Alkaline Phosphatase (46-116) U/L Troponin I High Sens 96 H* Cancelled (4-51) ng/L NT-Pro-B Natriuret Pep (<300) pg/mL Total Protein (6.4-8.2) g/dL Albumin (3.4-5.0) g/dL Urine Color Yellow (Yellow) Urine Clarity Clear (Clear) Urine pH 6.0 (5-8) Ur Specific [place] 1.010 (1.005-1.025) Urine Protein Trace (Neg-Trace) mg/dL Urine Ketones Negative (Negative) mg/dL Urine Blood Trace-intact H (Negative) Urine Nitrite Negative (Negative) Urine Bilirubin Negative (Negative) Urine Urobilinogen 0.2 (Up to 0.2) mg/dL Ur Leukocyte Esterase Negative (Negative) Urine RBC 0-2 (0-2) HPF Urine WBC 0-2 (0-5) HPF Ur Epithelial Cells Few (Negative) HPF Urine Crystals Negative (Negative) HPF Urine Bacteria Negative (Negative) HPF Urine Casts Negative (Negative) LPF Urine Mucus Negative (Negative) Ur Culture Indicated? No Urine Glucose Negative (Negative) mg/dL Ethyl Alcohol 249.5 H (<10) mg/dL COVID-19 Source SARS-CoV-2 (PCR) (Negative) Influenza Type A (PCR) (Negative) Influenza Type B (PCR) (Negative) RSV (PCR) (Negative) 01/18/24 01/18/24 Range/Units 20:44 20:17 WBC 4.41 (4.4-10.8) 10^3/uL RBC 3.33 L (3.93-5.22) 10^6/uL Hgb 12.9 (11.2-15.7) g/dL Hct 37.0 (36.0-46.0) % MCV 111 H (80-95) fL MCH 38.7 H (27.0-33.0) pg MCHC 34.9 (32.0-36.0) % RDW 14.1 (11.7-14.6) % Plt Count 153 (130-400) 10^3/uL MPV 9.7 (8.0-11.0) fL Immature Gran % 0.2 % Neutrophils % 61.9 % Lymphocytes % 23.8 % Monocytes % 11.6 % Eosinophils % 1.8 % Basophils % 0.7 % Nucleated RBC % 0.0 (0.0-0.3) % Absolute Neutrophils 2.73 (1.2-6.7) 10^3/uL Absolute Lymphocytes 1.05 L (1.2-3.4) 10^3/uL Absolute Monocytes 0.51 (0.1-0.8) 10^3/uL Absolute Eosinophils 0.08 (0.0-0.7) 10^3/uL Absolute Basophils 0.03 (0.0-0.2) 10^3/uL RBC Morphology See Below Macrocytosis 1+ VBG pH 7.34 (7.31-7.41) VBG pCO2 54 H (41-51) mmHg VBG pO2 46 mmHg VBG HCO3 29 H (23-28) mmol/L VBG Total CO2 27 (24-29) mmol/L VBG O2 Saturation 74 % VBG Base Excess 3 (-2-3) mmol/L VBG Lactate 2.3 H* (0.6-1.4) mmol/L Sodium 130 L (136-145) mmol/L Potassium 3.6 (3.5-5.1) mmol/L Chloride 90 L (98-107) mmol/L Carbon Dioxide 27.7 (21.0-32.0) mmol/L Anion Gap 12.3 H (3-11) mmol/L BUN 7 (7-18) mg/dL Creatinine 0.7 (0.55-1.02) mg/dL Est GFR (CKD-EPI 2020) 95.92 (mL/min/1.73m2) Glucose 98 (74-106) mg/dL Calcium 8.9 (8.5-10.1) mg/dL Magnesium 1.5 L (1.8-2.4) mg/dL Total Bilirubin 0.50 (0.2-1.0) mg/dL AST 77 H (15-37) U/L ALT 48 (14-59) U/L Alkaline Phosphatase 89 (46-116) U/L Troponin I High Sens 112 H* (4-51) ng/L NT-Pro-B Natriuret Pep 1106 H (<300) pg/mL Total Protein 7.4 (6.4-8.2) g/dL Albumin 4.2 (3.4-5.0) g/dL Urine Color (Yellow) Urine Clarity (Clear) Urine pH (5-8) Ur Specific [place] (1.005-1.025) Urine Protein (Neg-Trace) mg/dL Urine Ketones (Negative) mg/dL Urine Blood (Negative) Urine Nitrite (Negative) Urine Bilirubin (Negative) Urine Urobilinogen (Up to 0.2) mg/dL Ur Leukocyte Esterase (Negative) Urine RBC (0-2) HPF Urine WBC (0-5) HPF Ur Epithelial Cells (Negative) HPF Urine Crystals (Negative) HPF Urine Bacteria (Negative) HPF Urine Casts (Negative) LPF Urine Mucus (Negative) Ur Culture Indicated? Urine Glucose (Negative) mg/dL Ethyl Alcohol (<10) mg/dL COVID-19 Source Nasopharynx SARS-CoV-2 (PCR) Negative (Negative) Influenza Type A (PCR) Negative (Negative) Influenza Type B (PCR) Negative (Negative) RSV (PCR) Negative (Negative) [id number] Documentation Fingerstick Glucose Start: 01/18/24 20:40 Freq: Status: Active Protocol: Activity Type Activity Date Activity User E-sign Co-sign Detail Recorded Client Recorded Date Recorded By Document 01/18/24 21:39 BKG DAEMON(10) [id number] 01/18/24 21:40 BKG DAEMON(10) Intake and Output - 24 Hour Total 01/18/24 20:00 thru 01/18/24 21:46 Intake Total 600 Balance 600 Weight 40.234 kg Intake: IV 600 Falls Risk Assessment History of Falls No History 01/18/24 20:19 Contributing Factors No Factors 01/18/24 20:19 Ambulatory Aids Independent 01/18/24 20:19 Tubes/Lines None 01/18/24 20:19 Gait Evaluation No gait disturbance 01/18/24 20:19 Cognition No cognitive impairment 01/18/24 20:19 Fall Total Score 0 01/18/24 20:19 Level of Risk Standard/Low Risk 01/18/24 20:19 Problems (Last Reviewed 01/18/24 @ 23:11 by Brian Green) Elevated troponin level not due myocardial infarction (Acute) Acute hypoxic respiratory failure (Acute) COPD exacerbation (Acute) Pulmonary hypertension (Chronic) Alcohol dependence (Chronic) Tobacco abuse (Chronic) v v v v v v v v v Sending and/or Receiving Nurses: Please use comment section below to note any information pertinent to the patient hand-off not included above. Information / Comments: Report received from: Niya BEAVERS RN
[2024-01-19 02:06] LABS: Lactate 2.6 mmol/L (0.6-1.4)
[2024-01-19] MEDS: Atenolol 50 MG TAB 100 MG PO (02:28)
[2024-01-19] MEDS: DOXYCYCLINE 100 MG in Normal Saline 100 ML IVPB (02:29)
[2024-01-19] MEDS: diphenhydrAMINE 25 MG CAP PO (02:29)
[2024-01-19] MEDS: Nicotine 21 MG/24 HR PATCH TD (02:29)
[2024-01-19 02:31] LABS: Anion Gap 15.1 mmol/L (3-11); BUN 5 mg/dL (7-18); CO2 23.9 mmol/L (21.0-32.0); CREATININE 0.6 mg/dL (0.55-1.02); Calcium 8.6 mg/dL (8.5-10.1); Chloride 94 mmol/L (98-107); Estimated GFR 99.55 (mL/min/1.73m2); Glucose 136 mg/dL (74-106); Magnesium 1.6 mg/dL (1.8-2.4); Potassium 3.9 mmol/L (3.5-5.1); Sodium 133 mmol/L (136-145); TSH (W/Ref FT4) 1.32 uIU/mL (0.36-3.74)
[2024-01-19] MEDS: Normal Saline 1,000 ML 250 ML IV (02:36)
[2024-01-19] MEDS: Albuterol/Ipratropium 3 ML UPD VIAL UPD ×3 (02:45→15:18)
[2024-01-19] MEDS: Atorvastatin 20 MG TAB PO (03:30)
[2024-01-19] MEDS: methylPREDNISolone SUCC 125 MG VIAL 60 MG IVP (03:50)
[2024-01-19] MEDS: MAGNESIUM SULFATE 2 GM/50 ML BAG IVINF (03:51)
[2024-01-19] MEDS: Levothyroxine 88 MCG TAB PO (06:23)
[2024-01-19 06:42] LABS: BE (Venous) 0 mmol/L (-2-3); HCO3 (Venous) 25 mmol/L (23-28); O2 Sat (Venous) 96 %; TCO2 (Venous) 22 mmol/L (24-29); pCO2 (Venous) 39 mmHg (41-51); pH (Venous) 7.42 (7.31-7.41); pO2 (Venous) 77 mmHg
[2024-01-19 06:46] LABS: HCT 35.1 % (36.0-46.0); HGB 12.5 g/dL (11.2-15.7); MCH 38.9 pg (27.0-33.0); MCHC 35.6 % (32.0-36.0); MPV 10.1 fL (8.0-11.0); Platelet Count 144 10^3/uL (130-400); RBC 3.21 10^6/uL (3.93-5.22); RDW 14.1 % (11.7-14.6); RDW-SD 57.5 fL; WBC 2.33 10^3/uL (4.4-10.8)
[2024-01-19 06:50] LABS: Lactate 2.1 mmol/L (0.6-1.4)
[2024-01-19 07:12] LABS: ALT 44 U/L (14-59); AST 68 U/L (15-37); Albumin 4.1 g/dL (3.4-5.0); Alkaline Phosphatase 90 U/L (46-116); Anion Gap 13.3 mmol/L (3-11); BUN 4 mg/dL (7-18); Bilirubin, Total 0.68 mg/dL (0.2-1.0); CO2 24.7 mmol/L (21.0-32.0); CREATININE 0.5 mg/dL (0.55-1.02); Calcium 8.7 mg/dL (8.5-10.1); Chloride 93 mmol/L (98-107); Estimated GFR 104.02 (mL/min/1.73m2); Glucose 141 mg/dL (74-106); Magnesium 2.4 mg/dL (1.8-2.4); Potassium 3.8 mmol/L (3.5-5.1); Sodium 131 mmol/L (136-145); Total Protein 7.3 g/dL (6.4-8.2); Troponin I 51 ng/L (4-51)
[2024-01-19 07:29] LABS: Magnesium 2.4 mg/dL (1.8-2.4)
[2024-01-19 07:37] LABS: MCV 109 fL (80-95)
[2024-01-19] MEDS: Normal Saline Flush 10 ML SYR IVP (07:56)
[2024-01-19] MEDS: Aspirin E.C. 81 MG TABEC PO (07:57)
[2024-01-19] MEDS: Multivitamin TAB 1 TAB PO (07:59)
[2024-01-19 10:02] LABS: *AMPHETAMINES SCREEN URINE Negative (Negative); *BARBITURATES SCREEN URINE Negative (Negative); *BENZODIAZEPINES SCREEN URINE Negative (Negative); Cannabinoids THC Negative (Negative); Cocaine Screen,Urine Negative (Negative); METHADONE URINE SCREEN Negative (Negative); OPIATES URINE SCREEN Negative (Negative); Tricyclic Antidepressants Negative (Negative)
--- NOTE | 2024-01-19 10:18 | W.PM.PROGNOT ---
Assessment and Plan Assessment and plan (1) COPD exacerbation: Start date: 01/18/24 Status: Acute Assessment and plan: -presented to the ED with increased shortness of breath acutely most likely secondary increased pollen, continue smoking with exposure to heavy marijuana smoke -She was acutely hypoxic with her respiratory symptoms and is not appear to have had a PE by CTA. -required 3L NC while in ED, does not normally require supplemtnal oxygen at home -started on nebulizer treatments, IV solumedrol and IV doxy -will transition to PO prednisone and PO doxy as patient is tolerating PO intake (2) Acute hypoxic respiratory failure: Start date: 01/18/24 Status: Acute Assessment and plan: -secondary to COPD exacerbation as noted above -wean O2 as tolerated (3) Hypomagnesemia: Start date: 01/18/24 Status: Acute Assessment and plan: Additional magnesium supplementation with continued trending and supplement. This. Be a chronic problem. Patient is a chronic alcoholic. (4) Elevated troponin level not due myocardial infarction: Start date: 01/18/24 Status: Acute Assessment and plan: Is trending downward with treatment of her respiratory distress. Continue to trend and cardiac monitoring. She is a full code. (5) Tobacco abuse: Status: Chronic Assessment and plan: Advised cessation which patient will not heed. NicoDerm 21 mg transdermal patch with patient stated she is not surely allergic to adhesive and has tolerated NicoDerm patches in the past. She is requesting the supplementation. (6) Pulmonary hypertension: Status: Chronic Assessment and plan: Associate with chronic tobacco use and COPD with emphysema. Treatment above would be helpful. Watch for right-sided CHF symptoms with fluid resuscitation for lactic acidosis. (7) Alcohol dependence: Status: Chronic Assessment and plan: Patient has not had a problem with alcohol in the past but will be placed on CIWA protocol with p.o. Ativan as needed. Qualifiers: Substance use status: with intoxication Complication of substance-induced condition: uncomplicated Qualified Code(s): F10.220 - Alcohol dependence with intoxication, uncomplicated (8) Hypothyroidism: Assessment and plan: TSH normal will continue supplementation as per outpatient. Qualifiers: Hypothyroidism type: acquired Qualified Code(s): E03.9 - Hypothyroidism, unspecified (9) Hyperlipidemia: Assessment and plan: Continue outpatient medical therapy. Qualifiers: Hyperlipidemia type: mixed hyperlipidemia Qualified Code(s): E78.2 - Mixed hyperlipidemia Objective Last Vital Signs Temp 98.4 F 01/19/24 08:12 Pulse 68 01/19/24 09:52 Resp 19 01/19/24 08:12 BP 142/104 H 01/19/24 09:52 Pulse Ox 100 01/19/24 08:12 Laboratory Results - last 24 hr 01/18/24 01/18/24 01/18/24 20:17 20:44 21:26 WBC 4.41 RBC 3.33 L Hgb 12.9 Hct 37.0 MCV 111 H MCH 38.7 H MCHC 34.9 RDW 14.1 Plt Count 153 MPV 9.7 Immature Gran % 0.2 Neutrophils % 61.9 Lymphocytes % 23.8 Monocytes % 11.6 Eosinophils % 1.8 Basophils % 0.7 Nucleated RBC % 0.0 Absolute Neutrophils 2.73 Absolute Lymphocytes 1.05 L Absolute Monocytes 0.51 Absolute Eosinophils 0.08 Absolute Basophils 0.03 RBC Morphology See Below Macrocytosis 1+ VBG pH 7.34 VBG pCO2 54 H VBG pO2 46 VBG HCO3 29 H VBG Total CO2 27 VBG O2 Saturation 74 VBG Base Excess 3 VBG Lactate 2.3 H* Sodium 130 L Potassium 3.6 Chloride 90 L Carbon Dioxide 27.7 Anion Gap 12.3 H BUN 7 Creatinine 0.7 Est GFR (CKD-EPI 2020) 95.92 Glucose 98 Calcium 8.9 Magnesium 1.5 L Total Bilirubin 0.50 AST 77 H ALT 48 Alkaline Phosphatase 89 Troponin I High Sens 112 H* NT-Pro-B Natriuret Pep 1106 H Total Protein 7.4 Albumin 4.2 TSH Urine Color Yellow Urine Clarity Clear Urine pH 6.0 Ur Specific [place] 1.010 Urine Protein Trace Urine Ketones Negative Urine Blood Trace-intact H Urine Nitrite Negative Urine Bilirubin Negative Urine Urobilinogen 0.2 Ur Leukocyte Esterase Negative Urine RBC 0-2 Urine WBC 0-2 Ur Epithelial Cells Few Urine Crystals Negative Urine Bacteria Negative Urine Casts Negative Urine Mucus Negative Ur Culture Indicated? No Urine Glucose Negative Urine Opiates Screen Urine Methadone Screen Ur Barbiturates Screen Ur Tricyclics Screen Ur Amphetamines Screen U Benzodiazepines Scrn Urine Cocaine Screen Ur THC Screen Ethyl Alcohol COVID-19 Source Nasopharynx SARS-CoV-2 (PCR) Negative Influenza Type A (PCR) Negative Influenza Type B (PCR) Negative RSV (PCR) Negative 01/18/24 01/18/24 01/19/24 21:44 22:24 01:54 WBC RBC Hgb Hct MCV MCH MCHC RDW Plt Count MPV Immature Gran % Neutrophils % Lymphocytes % Monocytes % Eosinophils % Basophils % Nucleated RBC % Absolute Neutrophils Absolute Lymphocytes Absolute Monocytes Absolute Eosinophils Absolute Basophils RBC Morphology Macrocytosis VBG pH VBG pCO2 VBG pO2 VBG HCO3 VBG Total CO2 VBG O2 Saturation VBG Base Excess VBG Lactate 2.6 H* Sodium 133 L Potassium 3.9 Chloride 94 L Carbon Dioxide 23.9 Anion Gap 15.1 H BUN 5 L Creatinine 0.6 Est GFR (CKD-EPI 2020) 99.55 Glucose 136 H Calcium 8.6 Magnesium 1.6 L Total Bilirubin AST ALT Alkaline Phosphatase Troponin I High Sens Cancelled 96 H* NT-Pro-B Natriuret Pep Total Protein Albumin TSH 1.32 Urine Color Urine Clarity Urine pH Ur Specific [place] Urine Protein Urine Ketones Urine Blood Urine Nitrite Urine Bilirubin Urine Urobilinogen Ur Leukocyte Esterase Urine RBC Urine WBC Ur Epithelial Cells Urine Crystals Urine Bacteria Urine Casts Urine Mucus Ur Culture Indicated? Urine Glucose Urine Opiates Screen Urine Methadone Screen Ur Barbiturates Screen Ur Tricyclics Screen Ur Amphetamines Screen U Benzodiazepines Scrn Urine Cocaine Screen Ur THC Screen Ethyl Alcohol 249.5 H COVID-19 Source SARS-CoV-2 (PCR) Influenza Type A (PCR) Influenza Type B (PCR) RSV (PCR) 01/19/24 01/19/24 01/19/24 06:35 06:35 06:58 WBC 2.33 L RBC 3.21 L Hgb 12.5 Hct 35.1 L MCV 109 H MCH 38.9 H MCHC 35.6 RDW 14.1 Plt Count 144 MPV 10.1 Immature Gran % Neutrophils % Lymphocytes % Monocytes % Eosinophils % Basophils % Nucleated RBC % Absolute Neutrophils Absolute Lymphocytes Absolute Monocytes Absolute Eosinophils Absolute Basophils RBC Morphology Macrocytosis VBG pH 7.42 H VBG pCO2 39 L VBG pO2 77 VBG HCO3 25 VBG Total CO2 22 L VBG O2 Saturation 96 VBG Base Excess 0 VBG Lactate 2.1 H Sodium 131 L Potassium 3.8 Chloride 93 L Carbon Dioxide 24.7 Anion Gap 13.3 H BUN 4 L Creatinine 0.5 L Est GFR (CKD-EPI 2020) 104.02 Glucose 141 H Calcium 8.7 Magnesium 2.4 2.4 Total Bilirubin 0.68 AST 68 H ALT 44 Alkaline Phosphatase 90 Troponin I High Sens 51 NT-Pro-B Natriuret Pep Total Protein 7.3 Albumin 4.1 TSH Urine Color Urine Clarity Urine pH Ur Specific [place] Urine Protein Urine Ketones Urine Blood Urine Nitrite Urine Bilirubin Urine Urobilinogen Ur Leukocyte Esterase Urine RBC Urine WBC Ur Epithelial Cells Urine Crystals Urine Bacteria Urine Casts Urine Mucus Ur Culture Indicated? Urine Glucose Urine Opiates Screen Negative Urine Methadone Screen Negative Ur Barbiturates Screen Negative Ur Tricyclics Screen Negative Ur Amphetamines Screen Negative U Benzodiazepines Scrn Negative Urine Cocaine Screen Negative Ur THC Screen Negative Ethyl Alcohol COVID-19 Source SARS-CoV-2 (PCR) Influenza Type A (PCR) Influenza Type B (PCR) RSV (PCR) PAWSS Have you Been Recently Intoxicated or Drunk Within the Last 30 days?: Unable to Obtain Have you Ever Experienced Previous Episodes of Alcohol Withdrawal?: Unable to Obtain Have you ever Experienced Withdrawal Seizures?: Unable to Obtain Have you ever Experienced Delirium Tremens(DT)s?: Unable to Obtain Have you ever undergone Alcohol Rehabilitation Treatment (i.e, inpt ot outpatient treatment programs)?: Unable to Obtain Have you ever Experienced Blackouts?: Unable to Obtain Have you ever Combined Alcohol with other Downers within the last 90 days?: Unable to Obtain Have you ever Combined Alcohol with any other Substance of Abuse during the last 90 days?: Unable to Obtain Positive Blood Alcohol level on Presentation? [PCS.BAL]: Unable to Obtain Evidence of Increased Autonomic Activity (i.e. HR>120, tremor, sweating, agitation, nausea)?: Unable to Obtain
[2024-01-19] MEDS: predniSONE 20 MG TAB 40 MG PO (10:59)
[2024-01-19] MEDS: Nicotine 4 MG LOZG SUC (14:13)
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
[2024-01-19] MEDS: Acetaminophen 500 MG TAB 1000 MG PO (16:10)
== END 2024-01-19 17:16 | disposition left against medical advice (07) | DRG 190 ==
LOC: ER 23:58 → MS 01-19 01:35
PROVIDERS: Admitting Provider Family Medicine; Emergency Provider Physician Assistant; PCP Family Medicine; Visit Provider Family Medicine
DX: J44.1 Chronic obstructive pulmonary disease with (acute) exacerbation (principal); J96.01 Acute respiratory failure with hypoxia; E87.1 Hypo-osmolality and hyponatremia; I24.89 Other forms of acute ischemic heart disease; F10.26 Alcohol dependence with alcohol-induced persisting amnestic disorder; D64.9 Anemia, unspecified; I10 Essential (primary) hypertension; I27.20 Pulmonary hypertension, unspecified; E03.9 Hypothyroidism, unspecified; E83.42 Hypomagnesemia; R91.1 Solitary pulmonary nodule; Z66 Do not resuscitate; E78.2 Mixed hyperlipidemia; I25.2 Old myocardial infarction; E53.8 Deficiency of other specified B group vitamins; F17.210 Nicotine dependence, cigarettes, uncomplicated
CPT/HCPCS: 00123; 36415; 36416; 71275; 80048; 80053; 80307; 82805; 82962; 85027; 87637; 93005; 94640; 96365; 96375; 99285; 71046; 80320; 81003; 81015; 83605; 83735; 83880; 84443; 84484; 85025; 93010; 94760; 99223; 99238; J1650; J2919; J3475; J3490; J7512; J7620

== ENCOUNTER 2024-03-10 10:54 | Outpatient (REF) | payer MEDICARE, MEDICAID, SELFPAY ==
[2024-04-09 15:01] LABS: Fungal Culture & Smear See Comments
== END 2024-03-10 10:55 | disposition home or self-care (01) ==
LOC: LBN 10:54
PROVIDERS: PCP Family Medicine; Visit Provider Family Medicine
DX: R30.0 Dysuria (principal)
CPT/HCPCS: 87102; 87107; 87206; 87086

== ENCOUNTER 2024-03-19 03:58 | Outpatient (CLI) | payer MEDICARE, MEDICAID, SELFPAY ==
[2024-03-19 14:03] LABS: HCT 39.7 % (36.0-46.0); HGB 13.7 g/dL (11.2-15.7); MCH 38.7 pg (27.0-33.0); MCHC 34.5 % (32.0-36.0); MCV 112 fL (80-95); MPV 10.1 fL (8.0-11.0); Platelet Count 177 10^3/uL (130-400); RBC 3.54 10^6/uL (3.93-5.22); RDW 13.3 % (11.7-14.6); RDW-SD 55.9 fL; WBC 5.31 10^3/uL (4.4-10.8)
[2024-03-19 15:39] LABS: Iron 157 ug/dL (50-170); Total Iron Binding Capacity 297 ug/dL (250-450); Transferrin Sat 53 % (15-50)
[2024-03-19 15:59] LABS: Vitamin B12 432 pg/mL (193-986)
== END 2024-03-19 03:59 | disposition home or self-care (01) ==
LOC: LBO 03:59
PROVIDERS: PCP Family Medicine; Visit Provider Family Medicine
DX: D64.9 Anemia, unspecified (principal); R53.83 Other fatigue
CPT/HCPCS: 36415; 85027; 82607; 83540; 83550

== ENCOUNTER 2024-04-09 14:12 | Emergency (ER) | payer MEDICARE, MEDICAID, SELFPAY ==
[2024-04-09] VITALS (17 sets, daily range): BP systolic 218; BP diastolic 88; PULSE 75–96; RESP 5–27; TEMP 36.6; O2SAT 85–97
--- NOTE | 2024-04-09 14:15 | RT.EKG_ITS ---
APPROVED REPORT Exam: Resting ECG Reason for Exam: sob Patient Location: E HR:82 bpm ECG Measurements Heart Rate 82 AXIS DC 146 P 86 QRSd 82 QRS 71 QT 367 T 122 QTc 429 Conclusion Sinus rhythm, rate 82 No interval abnormalities T wave inversion/ST depression lateral leads, new from priors No STEMI
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
[2024-04-09] MEDS: Albuterol/Ipratropium 3 ML UPD VIAL 9 ML UPD (14:51)
[2024-04-09] MEDS: Normal Saline 10 ML VIAL IJ (14:52)
[2024-04-09] MEDS: predniSONE 20 MG TAB 60 MG PO (14:53)
[2024-04-09 14:57] LABS: Abs Immature Grans 0.02 10^3/uL (0.0-0.06); Absolute Basophil Count 0.03 10^3/uL (0.0-0.2); Absolute Lymphocyte Count 0.62 10^3/uL (1.2-3.4); Absolute Monocyte Count 0.76 10^3/uL (0.1-0.8); Absolute Neutrophil Count 5.99 10^3/uL (1.2-6.7); Basophils % 0.4 %; HCT 39.6 % (36.0-46.0); Immature Grans % 0.3 %; Lymphocytes % 8.4 %; MCH 38.8 pg (27.0-33.0); MCHC 35.4 % (32.0-36.0); MCV 110 fL (80-95); Monocytes % 10.2 %; Neutrophils % 80.7 %; RBC 3.61 10^6/uL (3.93-5.22); RDW 12.2 % (11.7-14.6); RDW-SD 50.2 fL; WBC 7.42 10^3/uL (4.4-10.8)
[2024-04-09 15:15] LABS: ALT 29 U/L (14-59); AST 37 U/L (15-37); Albumin 4.1 g/dL (3.4-5.0); Alkaline Phosphatase 92 U/L (46-116); Anion Gap 12.8 mmol/L (3-11); BUN 8 mg/dL (7-18); Bilirubin, Total 1.01 mg/dL (0.2-1.0); CO2 30.2 mmol/L (21.0-32.0); CREATININE 0.6 mg/dL (0.55-1.02); Calcium 9.5 mg/dL (8.5-10.1); Chloride 91 mmol/L (98-107); Estimated GFR 99.55 (mL/min/1.73m2); Glucose 83 mg/dL (74-106); Magnesium 1.5 mg/dL (1.8-2.4); Potassium 4.4 mmol/L (3.5-5.1); Sodium 134 mmol/L (136-145); Total Protein 7.6 g/dL (6.4-8.2); Troponin I 7 ng/L (<or=51)
[2024-04-09 15:21] LABS: Macrocytosis 1+
[2024-04-09 15:38] LABS: COVID-19 PCR Negative (Negative); Influenza A PCR Negative (Negative); Influenza B PCR Negative (Negative); RSV PCR Negative (Negative)
[2024-04-09 15:39] LABS: Source Nasopharynx
[2024-04-09] MEDS: Magnesium Oxide 400 MG TAB 800 MG PO (15:45)
--- NOTE | 2024-04-09 15:46 | DI.RAD_ITS ---
Exam(s) XR CHEST 2V PA LATERAL EXAM: XR CHEST 2V PA LATERAL CLINICAL HISTORY: cough, wheeze. TECHNIQUE: 2D digital imaging was performed. COMPARISON: CR,XR XR CHEST 2V PA LATERAL from 01/18/2024 FINDINGS: 2 views: Heart size is normal. The mediastinum is not widened. Bilateral hyperinflation-COPD findings again noted but there are no new infiltrates nor pleural effus ions. No pneumothorax. No pulmonary edema. No new compression fractures. IMPRESSION: COPD emphysematous changes but no acute infiltrates nor pleural effusions. DATA REPOSITORY: RADIATION DOSE DELIVERED:
[2024-04-09 16:14] LABS: BE (Venous) 1 mmol/L (-2-3); HCO3 (Venous) 27 mmol/L (23-28); O2 Sat (Venous) 86 %; TCO2 (Venous) 24 mmol/L (24-29); pCO2 (Venous) 45 mmHg (41-51); pH (Venous) 7.38 (7.31-7.41); pO2 (Venous) 53 mmHg
--- NOTE | 2024-04-09 16:22 | ED.PROG_ITS ---
Date of service: 04/09/24 Time of Service: 16:35 Medical Decision Making Care assumed from provider (Maya Antonio NP) Please see their initial HPI, PE, and documentation. Discussed patient details and case and pending workup and disposition. Patient is hemodynamically stable, and alert and oriented. On signout awaiting VBG, chest x-ray and repeat troponin. Patient is adamant that she does not want to be admitted. I did discuss with her at length my recommendations for admission due to hypoxia at rest patient is not normally on oxygen and is satting approximately 85 to 87% on room air. She does jump up to approximately 97% on 2 L nasal cannula. She was given an albuterol inhaler to go home with. Patient placed on 1 L nasal cannula will inquire about getting her home oxygen set up until her follow-up with her PCP. She is also requesting an antifungal medication such as Diflucan for possible yeast infection. Chest x-ray shows COPD emphysematous changes but no infiltrates or pleural effusions. Discussed with RT regarding setting patient home on home O2 since this is an acute exacerbation of her condition this may not be possible, will did order an ABG to verify resting oxygen saturation and perfusion. Patient is requesting to leave to go home AGAINST MEDICAL ADVICE prior to her s econd troponin result. ABG was unattainable by RT and patient is unwilling to have her blood drawn again. I did discuss risks and benefits with her. Family is at bedside. Patient requesting to leave AMA. The patient appears clinically sober and is not under the influence of any known substances. Discussed risks and benefits with patient. Patient verbalizes understanding of situation and the risks of leaving including worsening condition, developing disability, including but not limited to . Discussed results of labs and imaging, if they were performed and recommendations for further treatment and/or observation. The patient verbalizes understanding of the results discussed. Every effort was made to involve family and situation discussed. At this time patient has opted to leave against medical advice. Patient is alert and oriented and has the capacity to make own decisions. RT at bedside doing a road test for qualification for home O2 and home nebulizer. Patient does qualify for this. I will place order for albuterol solution. For nebulizer and home O2. Patient was also given 4 vials of 5 mg albuterol solution to go home with as this is a holiday. Patient left AMA accompanied by family despite encouragement to stay for further testing and admission. All her questions were answered to the best of my ability. This text was generated using Performance Indicatoration system, please disregard any oddities of phrase or misspellings. Medical Records Medical records reviewed: Yes I reviewed the patient's medical records. Lab Data Lab results reviewed: Yes I reviewed the patient's lab results. Labs: Laboratory Tests Range/Units 04/09/24 04/09/24 04/09/24 14:39 14:47 16:10 WBC (4.4-10.8) 10^3/uL 7.42 RBC (3.93-5.22) 10^6/uL 3.61 L Hgb (11.2-15.7) g/dL 14.0 Hct (36.0-46.0) % 39.6 MCV (80-95) fL 110 H MCH (27.0-33.0) pg 38.8 H MCHC (32.0-36.0) % 35.4 RDW (11.7-14.6) % 12.2 Plt Count (130-400) 10^3/uL MPV (8.0-11.0) fL Immature Gran % % 0.3 Neutrophils % % 80.7 Lymphocytes % % 8.4 Monocytes % % 10.2 Eosinophils % % 0.0 Basophils % % 0.4 Nucleated RBC % (0.0-0.3) % 0.0 Absolute Neutrophils (1.2-6.7) 10^3/uL 5.99 Absolute Lymphocytes (1.2-3.4) 10^3/uL 0.62 L Absolute Monocytes (0.1-0.8) 10^3/uL 0.76 Absolute Eosinophils (0.0-0.7) 10^3/uL 0.00 Absolute Basophils (0.0-0.2) 10^3/uL 0.03 RBC Morphology See Below Macrocytosis 1+ VBG pH (7.31-7.41) 7.38 VBG pCO2 (41-51) mmHg 45 VBG pO2 mmHg 53 VBG HCO3 (23-28) mmol/L 27 VBG Total CO2 (24-29) mmol/L 24 VBG O2 Saturation % 86 VBG Base Excess (-2-3) mmol/L 1 Sodium (136-145) mmol/L 134 L Potassium (3.5-5.1) mmol/L 4.4 Chloride (98-107) mmol/L 91 L Carbon Dioxide (21.0-32.0) mmol/L 30.2 Anion Gap (3-11) mmol/L 12.8 H BUN (7-18) mg/dL 8 Creatinine (0.55-1.02) mg/dL 0.6 Est GFR (CKD-EPI 2020) (mL/min/1.73m2) 99.55 Glucose (74-106) mg/dL 83 Calcium (8.5-10.1) mg/dL 9.5 Magnesium (1.8-2.4) mg/dL 1.5 L Total Bilirubin (0.2-1.0) mg/dL 1.01 H AST (15-37) U/L 37 ALT (14-59) U/L 29 Alkaline Phosphatase (46-116) U/L 92 Troponin I (<or=51) ng/L 7 6 Total Protein (6.4-8.2) g/dL 7.6 Albumin (3.4-5.0) g/dL 4.1 COVID-19 Source Nasopharynx SARS-CoV-2 (PCR) (Negative) Negative Influenza Type A (PCR) (Negative) Negative Influenza Type B (PCR) (Negative) Negative RSV (PCR) (Negative) Negative Quality:SDOH Health Related Social Needs: Health related social needs housing instability, house d, with risk of homelessness(Z59.811) Sign Out Sign Out Data: Sign Out Comment: 63 y/o female with COPD presented with 5 days of cough, wheeze, n/v, diarrhea. Not on O2 at home, currently requiring O2 to maintain sat above 88%. Has received 2 nebs. EKG shows new t wave inversions in anterolateral leads- negative troponin, no CP. Awaiting CXR, VBG, and repeat troponin. Likely COPD exacerbation Last updated by Maya Higginbotham at 04/09/24 16:08 Discharge Plan Disposition Patient Disposition: Against Medical Advice Condition: Fair Discharge Details Clinical Impression: Acute exacerbation of chronic obstructive pulmonary disease, Hypoxia Primary Care Provider: Chidi Mccormack ED Provider: Blank Ritter Home Meds and New Rx's Prescriptions: New prednisone 20 mg tablet 60 mg PO DAILY 9 Days Qty: 17 0RF Rx Instructions: Take 3 tabs daily x 3 days, Take 2 tabs daily x 3 days, Take one tab daily x 3 days. albuterol sulfate [Ventolin HFA] 90 mcg/actuation Hfa Aerosol Inhaler 2 puff inhalation DISPENSE Qty: 6.7 0RF albuterol sulfate 5 mg/mL solution for nebulization 5 mg inhalation Q6H PRN (Reason: shortness of breath or wheezing) Qty: 600 0RF Rx Instructions: Use 1 nebulizer 4 times daily as needed for shortness of breath or wheezing Continued atenolol 100 mg tablet 100 mg PO DAILY Qty: 90 3RF gabapentin 300 mg capsule 300 mg PO TID PRN (Reason: Nerve pain) Qty: 270 3RF diphenhydramine HCl [Benadryl Allergy] 25 mg tablet 25 mg PO TID PRN ferrous sulfate 325 mg (65 mg iron) tablet 325 mg PO .every other day atorvastatin 20 mg tablet 20 mg PO QHS Qty: 90 3RF acetaminophen 500 mg tablet 1,000 mg PO Q6H PRN (Reason: fever or pain) Qty: 360 3RF aspirin 81 mg tablet,delayed release (DR/EC) 81 mg PO DAILY albuterol sulfate 90 mcg/actuation HFA aerosol inhaler 2 puff inhalation Q6H PRN (Reason: shortness of breath or wheezing) Qty: 8.5 3RF levothyroxine 88 mcg tablet 88 mcg PO DAILY Patient Comments: TAKE ONE TABLET BY MOUTH EVERY DAY Discharge Instructions Instructions: COPD Exacerbation, Adult ED, How to Use a Nebulizer ED Additional Instructions: At this time you have opted to leave AGAINST MEDICAL ADVICE. Delaying or refusing further care and admission could result in debilitation, disability or worsening of your disease up to and including . At this time your oxygen drops down to 85% on room air which is moderately low. I would like for you to have at least an oxygen saturation of 89% to 93% on room air. Consider getting a home O2 oximeter to monitor your oxygen saturation. May get this [id number]. Please take the steroids daily as directed, use the albuterol inhaler 1 or 2 puffs every 4-6 hours as needed for wheezing or shortness of breath. Please follow-up with your primary care provider in the next 3 days. Return to the ER if you change your mind about admission or any worsening at all. Referrals: Chidi Mccormack DO [Primary Care Provider] - 3 days
[2024-04-09] MEDS: Albuterol HFA 8 GM 60 PUFF INH IH (16:32)
[2024-04-09] MEDS: Inhaler, Assist Device 1 EACH MC (16:33)
[2024-04-09 16:35] LABS: Troponin I 6 ng/L (<or=51)
[2024-04-09] MEDS: Albuterol 2.5 MG/3 ML INH SOLN VIAL (18:05)
--- NOTE | 2024-04-09 18:24 | RESPIRATORY ---
Patient went home today from ED with new home O2 prescription and home nebulizer kit through [facility]. New O2 prescription is for 1L O2 via nasal cannula 04/12 - while at rest as well as during ambulation. Exercise oximetry done in the ED at patient's own pace. Pt was able to hold conversation during exercise walk test. DME Consignment ticket signed in the ED and faxed to [facility] today 04/09/24. Nebulizer SN# [id number]. [facility] POC Oxygen Concentrator SN# [id number].
== END 2024-04-09 18:11 | disposition left against medical advice (07) ==
PROVIDERS: Nurse Practitioner Family; Emergency Provider Registered Nurse Emergency; PCP Family Medicine
DX: J44.1 Chronic obstructive pulmonary disease with (acute) exacerbation (principal); R09.02 Hypoxemia; Z53.21 Procedure and treatment not carried out due to patient leaving prior to being seen by health care provider
CPT/HCPCS: 00123; 36415; 80053; 82805; 87637; 93005; 94618; 94640; 99285; 71046; 83735; 84484; 85025; 93010; J7512; J7613; J7620

== ENCOUNTER 2024-06-20 00:53 | Outpatient (CLI) | payer MEDICARE, MEDICAID, SELFPAY ==
--- NOTE | 2024-06-20 09:21 | DI.CT_ITS ---
Exam(s) CT CHEST WO EXAM: CT CHEST WO CLINICAL HISTORY: lung nodule,r91.1 TECHNIQUE: Imaging Protocol: Axial computed tomography images with coronal and sagittal reformatted images were created and reviewed. Computer aided detection (CAD) was utilized. CONTRAST MATERIAL: Noncontrast COMPARISON: CR XR CHEST 2V PA LATERAL from 05/26/[address] CHEST PE CTA from 01/18/2024 FINDINGS: Pulmonary parenchyma: No consolidation. No dominant measurable mass. Moderate centrilobular emphysem a. Mild scarring at the left lung apex. Tracheobronchial tree: No bronchiectasis or mucous plugging. Mediastinum and Karen: No dominant adenopathy or fluid collection. Pleura: No effusion. No pneumothorax. Heart: The heart is not dilated. Moderate to severe coronary artery calcifications are seen. Aorta: Thoracic aorta non-dilated. Mild atherosclerotic changes. Pulmonary arteries: No gross evidence of emboli. Upper abdomen: No acute findings. Severe calcifications noted in abdominal aorta, SMA and left re nal artery. Bones: Degenerative changes in the spine. Soft tissues: Unremarkable. IMPRESSION: Moderate emphysematous changes. Mild scarring left lung apex. No pulmonary nodules. RADIATION DOSE DELIVERED: 85.69mGy.cm Total DLP DATA REPOSITORY: All CT scans at this facility are submitted to the National Radiology Data Registry (NRDR) Dose Index Registry (DIR) with the [employer] (ACR). RADIATION OPTIMIZATION: All CT scans at this facility use at least one of these dose optimization te chniques: automated exposure control; mA and/or kV adjustment per patient size (includes targeted exa ms where dose is matched to clinical indication); or iterative reconstruction.
== END 2024-06-20 01:13 ==
LOC: DI 00:53
PROVIDERS: PCP Family Medicine; Visit Provider Internal Medicine Critical Care Medicine
DX: R91.1 Solitary pulmonary nodule (principal)
CPT/HCPCS: 71250

== ENCOUNTER → 2024-08-26 10:54 | Outpatient (BNVA) | payer MEDICARE, MEDICAID, SELFPAY | PROVIDERS: PCP Family Medicine; Referring Provider Family Medicine; Visit Provider Nurse Practitioner Gerontology | DX: R31.9 Hematuria, unspecified (principal); N39.46 Mixed incontinence; R39.9 Unspecified symptoms and signs involving the genitourinary system | CPT/HCPCS: 51798; 81003; 99215 ==

== ENCOUNTER 2024-11-09 17:18 | Inpatient (IN) | payer MEDICARE, MEDICAID, SELFPAY ==
[2024-11-09] VITALS (53 sets, daily range): BP systolic 147–238; BP diastolic 78–157; PULSE 75–103; RESP 16–33; TEMP 36.7; O2SAT 80–98
--- NOTE | 2024-11-09 17:15 | RT.EKG_ITS ---
APPROVED REPORT Exam: Resting ECG Reason for Exam: SOB Patient Location: E HR:93 bpm ECG Measurements Heart Rate 93 AXIS WI 142 P 45 QRSd 83 QRS 91 QT 351 T 91 QTc 437 Conclusion Sinus rhythm at a rate of [address] depressions on precordial leads without acute ST elevations
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
--- NOTE | 2024-11-09 17:45 | DI.CT_ITS ---
Exam(s) CT CHEST/ABD/PEL W EXAM: CT CHEST/ABD/PEL W CLINICAL HISTORY: cough, R sided abd pain, n/v. TECHNIQUE: Imaging Protocol: Axial computed tomography images with coronal and sagittal reformatted images were created and reviewed. Computer aided detection (CAD) was utilized. CONTRAST MATERIAL: Intravenous: Omnipaque 350 Contrast volume:60 ml Oral: / no COMPARISON: CT CT CHEST PE ABD PELVIS W from 10/25/[address] CHEST WO from 06/20/2024 FINDINGS: CHEST: Pulmonary parenchyma: Moderate emphysematous changes, greater in the upper lobes. No consolidation. No dominant measurable mass. Patchy left lower lobe infiltrate. Tracheobronchial tree: Bronchial calcification is present. There is bronchial wall thickening of the left lower lobe and distal mucous plugging. No bronchiectasis. Pleura: No effusion or pneumothorax. Mediastinum: Precarinal lymph nodes which are mildly enlarged, consistent with reactive lymph nodes. Pulmonary arteries: No visible emboli. Cardiovascular: Heart size is normal. Coronary artery calcifications are present. No pericardial effusion. Thoracic aorta non-dilated. Mild atherosclerotic changes. Bones: Unremarkable for age. No lytic or blastic lesions. Degenerative changes in the mid to lower thoracic spine. Mild anterior wedging of T9 and T10. Soft tissues: Unremarkable. ABDOMEN and PELVIS: Liver: Normal density. No suspicious mass. Gallbladder and biliary tract: No evidence of stones or wall thickening. No biliary dilatation. Pancreas: Normal density, no abnormal calcifications or inflammatory process. Spleen: Normal. Kidneys: Bilateral renal cortical scarring. No radiodense stones. No obstructive uropathy. No suspicious masses seen. Adrenal glands: No masses seen. Aorta: Abdominal portion non-dilated. Severe atherosclerotic calcification. Lymph nodes: Within normal limits. Soft tissues: Unremarkable. Bladder: Not well distended. Diffuse wall thickening consistent with cystitis. Bowel: Small bowel anastomosis. Diverticulosis without evidence of diverticulitis. Mid sigmoid anastomosis. No obstruction or bowel wall thickening. No evidence of appendicitis. Peritoneal cavity: No ascites. No focal collection. No mesenteric inflammatory response. No free air. Bones: Mild scoliosis and degenerative changes greatest at L2-3 and L4-5. Reproductive organs: Uterus and ovaries are unremarkable for age. There are again noted to be dilated pelvic veins. IMPRESSION: Chest: Left lower lobe bronchial wall thickening, mild distal mucous plugging and patchy infiltrate in the left lower lobe, infectious versus aspiration pneumonia. Abdomen pelvis: Bladder wall thickening suspicious for cystitis. No acute bowel abnormality. Small bowel and colonic anastomoses are unremarkable. Diverticulosis without evidence of diverticulitis. The preliminary [facility] report was reviewed. RADIATION DOSE DELIVERED: 93.43mGy.cm Total DLP DATA REPOSITORY: All CT scans at this facility are submitted to the National Radiology Data Registry (NRDR) Dose Index Registry (DIR) with the [employer] (A[employer]). RADIATION OPTIMIZATION: All CT scans at this facility use at least one of these dose optimization techniques: automated exposure control; mA and/or kV adjustment per patient size (includes targeted exams where dose is matched to clinical indication); or iterative reconstruction.
[2024-11-09 18:17] LABS: BE (Venous) 3 mmol/L (-2-3); HCO3 (Venous) 28 mmol/L (23-28); O2 Sat (Venous) 59 %; TCO2 (Venous) 25 mmol/L (24-29); pCO2 (Venous) 46 mmHg (41-51); pH (Venous) 7.39 (7.31-7.41); pO2 (Venous) 32 mmHg
[2024-11-09 18:21] LABS: Abs Immature Grans 0.02 10^3/uL (0.0-0.06); Absolute Basophil Count 0.02 10^3/uL (0.0-0.2); Absolute Lymphocyte Count 0.34 10^3/uL (1.2-3.4); Absolute Monocyte Count 0.44 10^3/uL (0.1-0.8); Absolute Neutrophil Count 5.09 10^3/uL (1.2-6.7); Basophils % 0.3 %; HCT 36.7 % (36.0-46.0); Immature Grans % 0.3 %; Lymphocytes % 5.8 %; MCH 37.5 pg (27.0-33.0); MCHC 35.4 % (32.0-36.0); MCV 106 fL (80-95); MPV 9.9 fL (8.0-11.0); Monocytes % 7.4 %; Neutrophils % 86.2 %; Platelet Count 154 10^3/uL (130-400); RBC 3.47 10^6/uL (3.93-5.22); RDW 12.7 % (11.7-14.6); RDW-SD 49.6 fL; WBC 5.91 10^3/uL (4.4-10.8)
[2024-11-09 18:24] LABS: Lactate 2.3 mmol/L (<or=2.0)
[2024-11-09] MEDS: Albuterol/Ipratropium 3 ML UPD VIAL UPD (18:30)
[2024-11-09 18:36] LABS: COVID-19 PCR Negative (Negative); Influenza A PCR Negative (Negative); Influenza B PCR Negative (Negative); RSV PCR Negative (Negative)
[2024-11-09 18:37] LABS: Source Nasopharynx
[2024-11-09 18:43] LABS: Diff Comment RBC Morph Reviewed; Macrocytosis 1+; Stomatocytes 2+
[2024-11-09 18:47] LABS: ALT 23 U/L (14-59); AST 26 U/L (15-37); Albumin 4.3 g/dL (3.4-5.0); Alkaline Phosphatase 95 U/L (46-116); BUN 7 mg/dL (7-18); Bilirubin, Total 1.5 mg/dL (0.2-1.0); CREATININE 0.5 mg/dL (0.55-1.02); Chloride 85 mmol/L (98-107); Estimated GFR 103.38 (mL/min/1.73m2); Glucose 121 mg/dL (74-106); Magnesium 1.5 mg/dL (1.8-2.4); NT-proBNP 2716 pg/mL (<300); Sodium 127 mmol/L (136-145); Total Protein 8.2 g/dL (6.4-8.2); Troponin I 28 ng/L (<or=51)
[2024-11-09] MEDS: Omnipaque 350 MG/ML 100 ML BTL IJ (19:03)
[2024-11-09] MEDS: Normal Saline - Diluent 50 ML VIAL IJ (19:04)
[2024-11-09 19:28] LABS: Troponin I 33 ng/L (<or=51)
[2024-11-09 20:15] LABS: Lactate 2.9 mmol/L (<or=2.0)
[2024-11-09] MEDS: Ondansetron O.D.T. 4 MG TABEF PO (20:15)
[2024-11-09] MEDS: Normal Saline 500 ML IV (20:15)
[2024-11-09] MEDS: Magnesium Oxide 400 MG TAB PO (20:15)
--- NOTE | 2024-11-09 20:17 | DI.VRAD_ITS ---
PROCEDURE INFORMATION: Exam: CT Chest With Contrast; Diagnostic Exam date and time: 11/09/2024 7:00 PM Age: 64 years old Clinical indication: Nausea and vomiting and other: R side pain; Abdominal pain; Localized; Right; Other: Unspecified; Cough, R sided abd pain, n/v TECHNIQUE: Imaging protocol: Diagnostic computed tomography of the chest with contrast. 3D rendering (Not supervised by radiologist): MIP and/or 3D reconstructed images were created by the technologist. COMPARISON: CT CHEST WO 06/20/2024 9:07 AM FINDINGS: Lungs: Emphysema. Extensive bronchial wall thickening. Asymmetric patchy micronodular and tree-in-bud opacity in the left lower lobe. No region of jose eduardo pulmonary consolidation. Pleural spaces: No pleural effusion or pneumothorax. Heart: Overall normal-sized heart. Extensive coronary artery calcification. Lymph nodes: Mildly prominent mediastinal lymph nodes with a precarinal node or contiguous nodes measuring 12 mm x 19 mm on image 58 of series 13, nonspecific. Vasculature: No thoracic aortic aneurysm or dissection. No pulmonary embolism identified. Bones/joints: No acute fracture seen among the bones of the chest. Spinal degenerative change with endplate irregularities and small anterior osteophytes at multiple levels. Soft tissues: No gross soft tissue mass or fluid collection seen in the chest wall. IMPRESSION: 1. Diffuse emphysema. 2. Extensive bronchial wall thickening. Although nonspecific, bronchial wall thickening is often seen in the setting of acute, chronic, or recurrent bronchitis or aspiration and is commonly seen in smokers. 3. Asymmetric patchy micronodular and tree-in-bud opacity in the left lower lobe. Aspiration or infectious bronchiolitis could have this appearance. Clinical correlation is recommended. PROCEDURE INFORMATION: Exam: CT Abdomen And Pelvis With Contrast Exam date and time: 11/09/2024 7:00 PM Age: 64 years old Clinical indication: Nausea and vomiting and other: R side pain; Abdominal pain; Localized; Right; Other: Unspecified; Cough, R sided abd pain, n/v TECHNIQUE: Imaging protocol: Computed tomography of the abdomen and pelvis with contrast. 3D rendering (Not supervised by radiologist): MIP and/or 3D reconstructed images were created by the technologist. COMPARISON: No relevant prior studies available. FINDINGS: Liver: Small indeterminate hypoattenuating hepatic lesion, incompletely characterized but most likely a small cyst or hemangioma. Gallbladder and biliary ducts: Gallbladder partially collapsed. No calcified gallstones seen. No biliary dilatation. Pancreas: Moderate atrophy of the pancreas, partially obscured by close apposition of adjacent structures. Spleen: Normal appearing spleen. Adrenal glands: Adrenal glands partially obscured but grossly unremarkable, as seen. Kidneys and ureters: Bilateral renal cortical scarring, worse on the right. No hydronephrosis. Ureters partially obscured. No suspicious calcifications along the expected ureteral courses. Stomach and bowel: No oral contrast. Stomach largely decompressed. No small bowel dilatation to suggest obstruction. Enteroenteric anastomosis in the anterior mid abdomen suggesting a prior small bowel resection. Colon well evacuated of fecal material and largely collapsed. Scattered colonic diverticula but no evidence of diverticulitis or colitis. Colocolic anastomosis in the mid sigmoid region in keeping with a prior colonic resection. Appendix: Appendix not identified, obscured if present. Correlation with surgical history recommended. If there is clinical concern for acute appendicitis and the patient still has an appendix, additional evaluation would be recommended. Intraperitoneal space: No gross ascites or free air. Vasculature: No abdominal aortic aneurysm. Extensive atherosclerotic calcification throughout the abdominal aorta and extending into the splanchnic and pelvic arteries. Lymph nodes: No pathologically enlarged mesenteric, retroperitoneal, or pelvic sidewall lymph nodes. Urinary bladder: Urinary bladder partially decompressed. Marked circumferential bladder wall thickening with hazy indistinctness of the bladder margins. Reproductive: Normal-sized uterus, partially obscured. Ovaries largely obscured and not well evaluated but normal in size. Prominence of the parauterine, adnexal, and gonadal veins bilaterally, larger on the left, nonspecific but commonly seen in the setting of pelvic congestion syndrome. Bones/joints: No acute fracture seen among the bones of the abdomen or pelvis. Prominent discogenic degeneration at L2-L3 and L4-L5. Soft tissues: No significant ventral or inguinal hernia. IMPRESSION: 1. Urinary bladder partially decompressed. Marked circumferential bladder wall thickening with hazy indistinctness of the bladder margins. Acute cystitis could produce this appearance. Clinical correlation is recommended. Artifact of underdistention can also produce apparent bladder wall thickening. 2. No acute bowel pathology demonstrated. Dictated and Authenticated by: Antonio Tatum MD. Orderin Marisela Trejo MD
[2024-11-09 20:19] LABS: Bilirubin Negative (Negative); Blood Moderate (Negative); Clarity Sl Cloudy (Clear); Glucose Negative (Negative); Ketones 40 mg/dL (Negative); Leukocyte Esterase Moderate (Negative); Nitrite Positive (Negative); Specific Gravity <= 1.005 (1.005-1.025); Urobilinogen 0.2 mg/dL (Up to 0.2); pH 5.5 (5-8)
[2024-11-09 20:28] LABS: Bacteria Many HPF (Negative); C & S Indicated? No/Sq. Contamination; Casts Negative LPF (Negative); Crystals Negative HPF (Negative); Epithelial Cells Many HPF (Negative); Mucus Negative (Negative); RBC 0-2 HPF (0-2); WBC 20-50 HPF (0-5)
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
[2024-11-09 20:53] LABS: Lab Add On Test DONE
[2024-11-09 21:10] LABS: ETHANOL BLOOD < 3.0 mg/dL (<10)
[2024-11-09 21:24] LABS: *AMPHETAMINES SCREEN URINE Negative (Negative); *BARBITURATES SCREEN URINE Negative (Negative); *BENZODIAZEPINES SCREEN URINE Negative (Negative); Cannabinoids THC Negative (Negative); METHADONE URINE SCREEN Negative (Negative); OPIATES URINE SCREEN Negative (Negative)
[2024-11-09] MEDS: cefTRIAXone 1 GM/50 ML BAG IVPB (21:27)
[2024-11-09] MEDS: methylPREDNISolone SUCC 125 MG VIAL IVP (21:27)
[2024-11-09 21:28] LABS: Tricyclic Antidepressants Negative (Negative)
[2024-11-09 21:28] LABS: Troponin I 48 ng/L (<or=51)
[2024-11-09 21:43] LABS: Cocaine Screen,Urine Negative (Negative)
--- NOTE | 2024-11-09 22:35 | W.PC.ACHO ---
Registration Status: REG ER Primary Language: Preferred Language: Urdu ED Information & Data Chief Complaint SOB 11/09/24 17:57 Triage Note pt arrived c/o bilateral ear 11/09/24 17:19 ache and sob with o2 saturation of 84% pt Medical / Surgical History (Last Reviewed 11/09/24 @ 20:52 by Brian Green) Mild cognitive impairment Hyperlipidemia (08/21/12) Diverticulitis Palliative care patient Hypothyroidism (Last Reviewed 11/09/24 @ 20:52 by Brian Green) S/P colectomy (12/26/18) Most Recent Vital Signs Temperature 36.7 C 11/09/24 17:19 Temperature Source Oral 11/09/24 17:19 Pulse 83 11/09/24 22:30 Pulse 84 11/09/24 22:30 Respiratory Rate 27 H 11/09/24 22:30 Respiratory Effort Short of Breath 11/09/24 18:31 Respiratory Depth Normal 11/09/24 18:31 Respiratory Pattern Normal 11/09/24 18:31 Blood Pressure 216/104 H 11/09/24 22:03 Blood Pressure Mean 141 11/09/24 22:03 Pulse Oximetry 80 L 11/09/24 22:30 Oxygen Delivery Method Nasal Cannula 11/09/24 19:02 Oxygen Flow Rate 3 11/09/24 19:02 Pain Level 0 11/09/24 17:19 Allergies hydrochlorothiazide Allergy (Severe, Verified 11/09/24 17:27) RASH morphine Allergy (Severe, Verified 11/09/24 17:27) stops breathing STOPS BREATHING hydralazine Allergy (Intermediate, Verified 11/09/24 17:27) rash reserpine Allergy (Intermediate, Verified 04/09/24 14:36) rash simvastatin Allergy (Intermediate, Verified 11/09/24 17:27) rash Penicillins Allergy (Unknown, Verified 11/09/24 17:27) unknown ezetimibe Adverse Reaction (Intermediate, Verified 04/09/24 14:36) Skin Rash adhesive tape Adverse Reaction (Verified 11/09/24 17:27) itching, redness under iv dressing. [facility] note dated 01/10/19 CANNABINOID Allergy (Unknown, Uncoded 11/09/24 17:27) Swelling/Edema losartan Adverse Reaction (Intermediate, Uncoded 11/09/24 17:27) Skin Rash Active Medications Generic Name Dose Route Start Last Admin Trade Name Freq PRN Reason Stop Dose Admin Iohexol 100 ml 11/09/24 19:15 11/09/24 19:03 Omnipaque 350 Mg/Ml 100 Ml Btl IJ 12/09/24 23:59 60 ml DIRECTED JIMENEZ Administration Sodium Chloride 50 ml 11/09/24 19:15 11/09/24 19:04 Normal Saline - Diluent 50 Ml Vial IJ 50 ml .FOR DI USE JIMENEZ Administration IV IV Catheter Type [Left Forearm Peripheral IV ] IV Catheter Gauge [Left 18 Forearm] Diagnostics 11/09/24 11/09/24 11/09/24 Range/Units 21:02 21:00 20:47 WBC (4.4-10.8) 10^3/uL RBC (3.93-5.22) 10^6/uL Hgb (11.2-15.7) g/dL Hct (36.0-46.0) % MCV (80-95) fL MCH (27.0-33.0) pg MCHC (32.0-36.0) % RDW (11.7-14.6) % Plt Count (130-400) 10^3/uL MPV (8.0-11.0) fL Immature Gran % % Neutrophils % % Lymphocytes % % Monocytes % % Eosinophils % % Basophils % % Nucleated RBC % (0.0-0.3) % Absolute Neutrophils (1.2-6.7) 10^3/uL Absolute Lymphocytes (1.2-3.4) 10^3/uL Absolute Monocytes (0.1-0.8) 10^3/uL Absolute Eosinophils (0.0-0.7) 10^3/uL Absolute Basophils (0.0-0.2) 10^3/uL RBC Morphology Macrocytosis Stomatocytes VBG pH (7.31-7.41) VBG pCO2 (41-51) mmHg VBG pO2 mmHg VBG HCO3 (23-28) mmol/L VBG Total CO2 (24-29) mmol/L VBG O2 Saturation % VBG Base Excess (-2-3) mmol/L VBG Lactate (<or=2.0) mmol/L Sodium (136-145) mmol/L Potassium (3.5-5.1) mmol/L Chloride (98-107) mmol/L Carbon Dioxide (21.0-32.0) mmol/L Anion Gap (3-11) mmol/L BUN (7-18) mg/dL Creatinine (0.55-1.02) mg/dL Est GFR (CKD-EPI 2020) (mL/min/1.73m2) Glucose (74-106) mg/dL Calcium (8.5-10.1) mg/dL Magnesium (1.8-2.4) mg/dL Total Bilirubin (0.2-1.0) mg/dL AST (15-37) U/L ALT (14-59) U/L Alkaline Phosphatase (46-116) U/L Troponin I 48 (<or=51) ng/L NT-Pro-B Natriuret Pep (<300) pg/mL Total Protein (6.4-8.2) g/dL Albumin (3.4-5.0) g/dL Urine Color (Yellow) Urine Clarity (Clear) Urine pH (5-8) Ur Specific [place] (1.005-1.025) Urine Protein (Neg-Trace) mg/dL Urine Ketones (Negative) mg/dL Urine Blood (Negative) Urine Nitrite (Negative) Urine Bilirubin (Negative) Urine Urobilinogen (Up to 0.2) mg/dL Ur Leukocyte Esterase (Negative) Urine RBC (0-2) HPF Urine WBC (0-5) HPF Ur Epithelial Cells (Negative) HPF Urine Crystals (Negative) HPF Urine Bacteria (Negative) HPF Urine Casts (Negative) LPF Urine Mucus (Negative) Ur Culture Indicated? Urine Glucose (Negative) mg/dL Urine Opiates Screen Cancelled (Negative) Urine Methadone Screen Cancelled (Negative) Ur Barbiturates Screen Cancelled (Negative) Ur Tricyclics Screen Cancelled (Negative) Ur Amphetamines Screen Cancelled (Negative) U Benzodiazepines Scrn Cancelled (Negative) Urine Cocaine Screen Cancelled (Negative) Ur THC Screen Cancelled (Negative) Ethyl Alcohol (<10) mg/dL COVID-19 Source SARS-CoV-2 (PCR) (Negative) Influenza Type A (PCR) (Negative) Influenza Type B (PCR) (Negative) RSV (PCR) (Negative) Add-On Test Request DONE 11/09/24 11/09/24 11/09/24 Range/Units 20:10 19:05 18:12 WBC 5.91 (4.4-10.8) 10^3/uL RBC 3.47 L (3.93-5.22) 10^6/uL Hgb 13.0 (11.2-15.7) g/dL Hct 36.7 (36.0-46.0) % MCV 106 H (80-95) fL MCH 37.5 H (27.0-33.0) pg MCHC 35.4 (32.0-36.0) % RDW 12.7 (11.7-14.6) % Plt Count 154 (130-400) 10^3/uL MPV 9.9 (8.0-11.0) fL Immature Gran % 0.3 % Neutrophils % 86.2 % Lymphocytes % 5.8 % Monocytes % 7.4 % Eosinophils % 0.0 % Basophils % 0.3 % Nucleated RBC % 0.0 (0.0-0.3) % Absolute Neutrophils 5.09 (1.2-6.7) 10^3/uL Absolute Lymphocytes 0.34 L (1.2-3.4) 10^3/uL Absolute Monocytes 0.44 (0.1-0.8) 10^3/uL Absolute Eosinophils 0.00 (0.0-0.7) 10^3/uL Absolute Basophils 0.02 (0.0-0.2) 10^3/uL RBC Morphology See Below Macrocytosis 1+ Stomatocytes 2+ VBG pH 7.39 (7.31-7.41) VBG pCO2 46 (41-51) mmHg VBG pO2 32 mmHg VBG HCO3 28 (23-28) mmol/L VBG Total CO2 25 (24-29) mmol/L VBG O2 Saturation 59 % VBG Base Excess 3 (-2-3) mmol/L VBG Lactate 2.9 H* 2.3 H* (<or=2.0) mmol/L Sodium 127 L (136-145) mmol/L Potassium 4.0 (3.5-5.1) mmol/L Chloride 85 L (98-107) mmol/L Carbon Dioxide 27.0 (21.0-32.0) mmol/L Anion Gap 15.0 H (3-11) mmol/L BUN 7 (7-18) mg/dL Creatinine 0.5 L (0.55-1.02) mg/dL Est GFR (CKD-EPI 2021) 103.38 (mL/min/1.73m2) Glucose 121 H (74-106) mg/dL Calcium 10.0 (8.5-10.1) mg/dL Magnesium 1.5 L (1.8-2.4) mg/dL Total Bilirubin 1.5 H (0.2-1.0) mg/dL AST 26 (15-37) U/L ALT 23 (14-59) U/L Alkaline Phosphatase 95 (46-116) U/L Troponin I 33 28 (<or=51) ng/L NT-Pro-B Natriuret Pep 2716 H (<300) pg/mL Total Protein 8.2 (6.4-8.2) g/dL Albumin 4.3 (3.4-5.0) g/dL Urine Color Yellow (Yellow) Urine Clarity Sl Cloudy (Clear) Urine pH 5.5 (5-8) Ur Specific [place] <= 1.005 (1.005-1.025) Urine Protein 100 H (Neg-Trace) mg/dL Urine Ketones 40 H (Negative) mg/dL Urine Blood Moderate H (Negative) Urine Nitrite Positive H (Negative) Urine Bilirubin Negative (Negative) Urine Urobilinogen 0.2 (Up to 0.2) mg/dL Ur Leukocyte Esterase Moderate H (Negative) Urine RBC 0-2 (0-2) HPF Urine WBC 20-50 H (0-5) HPF Ur Epithelial Cells Many (Negative) HPF Urine Crystals Negative (Negative) HPF Urine Bacteria Many (Negative) HPF Urine Casts Negative (Negative) LPF Urine Mucus Negative (Negative) Ur Culture Indicated? No/Sq. Contamination Urine Glucose Negative (Negative) mg/dL Urine Opiates Screen Negative (Negative) Urine Methadone Screen Negative (Negative) Ur Barbiturates Screen Negative (Negative) Ur Tricyclics Screen Negative (Negative) Ur Amphetamines Screen Negative (Negative) U Benzodiazepines Scrn Negative (Negative) Urine Cocaine Screen Negative (Negative) Ur THC Screen Negative (Negative) Ethyl Alcohol < 3.0 (<10) mg/dL COVID-19 Source SARS-CoV-2 (PCR) (Negative) Influenza Type A (PCR) (Negative) Influenza Type B (PCR) (Negative) RSV (PCR) (Negative) Add-On Test Request 11/09/24 Range/Units 17:45 WBC (4.4-10.8) 10^3/uL RBC (3.93-5.22) 10^6/uL Hgb (11.2-15.7) g/dL Hct (36.0-46.0) % MCV (80-95) fL MCH (27.0-33.0) pg MCHC (32.0-36.0) % RDW (11.7-14.6) % Plt Count (130-400) 10^3/uL MPV (8.0-11.0) fL Immature Gran % % Neutrophils % % Lymphocytes % % Monocytes % % Eosinophils % % Basophils % % Nucleated RBC % (0.0-0.3) % Absolute Neutrophils (1.2-6.7) 10^3/uL Absolute Lymphocytes (1.2-3.4) 10^3/uL Absolute Monocytes (0.1-0.8) 10^3/uL Absolute Eosinophils (0.0-0.7) 10^3/uL Absolute Basophils (0.0-0.2) 10^3/uL RBC Morphology Macrocytosis Stomatocytes VBG pH (7.31-7.41) VBG pCO2 (41-51) mmHg VBG pO2 mmHg VBG HCO3 (23-28) mmol/L VBG Total CO2 (24-29) mmol/L VBG O2 Saturation % VBG Base Excess (-2-3) mmol/L VBG Lactate (<or=2.0) mmol/L Sodium (136-145) mmol/L Potassium (3.5-5.1) mmol/L Chloride (98-107) mmol/L Carbon Dioxide (21.0-32.0) mmol/L Anion Gap (3-11) mmol/L BUN (7-18) mg/dL Creatinine (0.55-1.02) mg/dL Est GFR (CKD-EPI 2020) (mL/min/1.73m2) Glucose (74-106) mg/dL Calcium (8.5-10.1) mg/dL Magnesium (1.8-2.4) mg/dL Total Bilirubin (0.2-1.0) mg/dL AST (15-37) U/L ALT (14-59) U/L Alkaline Phosphatase (46-116) U/L Troponin I (<or=51) ng/L NT-Pro-B Natriuret Pep (<300) pg/mL Total Protein (6.4-8.2) g/dL Albumin (3.4-5.0) g/dL Urine Color (Yellow) Urine Clarity (Clear) Urine pH (5-8) Ur Specific [place] (1.005-1.025) Urine Protein (Neg-Trace) mg/dL Urine Ketones (Negative) mg/dL Urine Blood (Negative) Urine Nitrite (Negative) Urine Bilirubin (Negative) Urine Urobilinogen (Up to 0.2) mg/dL Ur Leukocyte Esterase (Negative) Urine RBC (0-2) HPF Urine WBC (0-5) HPF Ur Epithelial Cells (Negative) HPF Urine Crystals (Negative) HPF Urine Bacteria (Negative) HPF Urine Casts (Negative) LPF Urine Mucus (Negative) Ur Culture Indicated? Urine Glucose (Negative) mg/dL Urine Opiates Screen (Negative) Urine Methadone Screen (Negative) Ur Barbiturates Screen (Negative) Ur Tricyclics Screen (Negative) Ur Amphetamines Screen (Negative) U Benzodiazepines Scrn (Negative) Urine Cocaine Screen (Negative) Ur THC Screen (Negative) Ethyl Alcohol (<10) mg/dL COVID-19 Source Nasopharynx SARS-CoV-2 (PCR) Negative (Negative) Influenza Type A (PCR) Negative (Negative) Influenza Type B (PCR) Negative (Negative) RSV (PCR) Negative (Negative) Add-On Test Request 11/09/24 20:10 Urine Culture - Pending Urine - Cath Straight 11/09/24 21:22 Blood Culture - Pending Blood 11/09/24 21:00 Blood Culture - Pending Blood Intake and Output - 24 Hour Total 11/09/24 17:18 thru 11/09/24 22:05 Intake Total 550 Balance 550 Weight 36.287 kg Intake: IV 550 Falls Risk Assessment History of Falls No History 11/09/24 18:31 Ambulatory Aids Uses ambulatory device 11/09/24 18:31 Gait Evaluation W/no contributing factors 11/09/24 18:31 Cognition No cognitive impairment 11/09/24 18:31 Fall Total Score 11/09/24 18:31 Level of Risk Moderate Risk 11/09/24 18:31 Problems (Last Reviewed 11/09/24 @ 20:52 by Brian Green) UTI (urinary tract infection) (Acute) Acute bronchiolitis (Acute) Tobacco use disorder (Chronic) COPD exacerbation (Acute) Pulmonary hypertension (Chronic) Hypoxic respiratory failure (Acute) Chronic hyponatremia (Acute) Alcohol dependence (Chronic) Tobacco abuse (Chronic) Hypomagnesemia (Acute) Hypothyroidism (Chronic) Essential hypertension (Chronic 01/22/12) v v v v v v v v v Sending and/or Receiving Nurses: Please use comment section below to note any information pertinent to the patient hand-off not included above. Information / Comments: 64 Y/O female came in c/o bilateral ear infection, and SOB. Possible pneumonia. UTI. Blood cultures pending. on 3L 02 NC satting 94%to 96%. Hx of COPD. Report received from: Gerald.
[2024-11-10] VITALS (14 sets, daily range): BP systolic 121–182; BP diastolic 72–102; PULSE 63–82; RESP 6–20; TEMP 36.5–36.7; O2SAT 77–97
[2024-11-10] MEDS: Gabapentin 300 MG CAP PO (00:39)
[2024-11-10] MEDS: Atorvastatin 20 MG TAB PO (00:39)
[2024-11-10] MEDS: Atenolol 50 MG TAB 100 MG PO (00:39)
[2024-11-10] MEDS: DOXYCYCLINE 100 MG in Normal Saline 100 ML IVPB (02:01)
[2024-11-10] MEDS: Albuterol/Ipratropium 3 ML UPD VIAL UPD ×2 (05:42→11:36)
[2024-11-10] MEDS: methylPREDNISolone SUCC 40 MG VIAL IVP (05:55)
[2024-11-10] MEDS: Levothyroxine 88 MCG TAB PO (05:56)
[2024-11-10 06:51] LABS: Lactate 1.1 mmol/L (<or=2.0)
[2024-11-10 06:58] LABS: Abs Immature Grans 0.01 10^3/uL (0.0-0.06); Absolute Basophil Count 0.04 10^3/uL (0.0-0.2); Absolute Lymphocyte Count 0.24 10^3/uL (1.2-3.4); Absolute Monocyte Count 0.17 10^3/uL (0.1-0.8); Absolute Neutrophil Count 5.09 10^3/uL (1.2-6.7); Basophils % 0.7 %; HCT 36.7 % (36.0-46.0); HGB 12.8 g/dL (11.2-15.7); Immature Grans % 0.2 %; Lymphocytes % 4.3 %; MCH 37.3 pg (27.0-33.0); MCHC 34.9 % (32.0-36.0); MCV 107 fL (80-95); MPV 10.2 fL (8.0-11.0); Monocytes % 3.1 %; Neutrophils % 91.7 %; Platelet Count 143 10^3/uL (130-400); RBC 3.43 10^6/uL (3.93-5.22); RDW 12.8 % (11.7-14.6); RDW-SD 50.7 fL; WBC 5.55 10^3/uL (4.4-10.8)
[2024-11-10 07:14] LABS: INR 0.9 (0.9-1.1); Prothrombin Time 9.3 sec (9.1-11.1)
[2024-11-10 07:32] LABS: ALT 20 U/L (14-59); AST 20 U/L (15-37); Albumin 3.8 g/dL (3.4-5.0); Alkaline Phosphatase 83 U/L (46-116); BUN 7 mg/dL (7-18); CREATININE 0.4 mg/dL (0.55-1.02); Calcium 9.4 mg/dL (8.5-10.1); Chloride 88 mmol/L (98-107); Estimated GFR 109.09 (mL/min/1.73m2); Glucose 168 mg/dL (74-106); Magnesium 1.7 mg/dL (1.8-2.4); Potassium 4.3 mmol/L (3.5-5.1); Sodium 128 mmol/L (136-145); Total Protein 7.5 g/dL (6.4-8.2)
[2024-11-10] MEDS: Oxybutynin-CR 5 MG TABCR PO (08:46)
[2024-11-10] MEDS: Cefpodoxime 200 MG TAB PO (08:46)
[2024-11-10] MEDS: predniSONE 20 MG TAB 40 MG PO (08:46)
[2024-11-10] MEDS: Aspirin E.C. 81 MG TABEC PO (08:46)
[2024-11-10] MEDS: Normal Saline Flush 10 ML SYR IVP (08:46)
[2024-11-10] MEDS: Ferrous Sulfate 325 MG TAB PO (08:46)
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
[2024-11-10] MEDS: Acetaminophen 500 MG TAB 1000 MG PO (10:20)
--- NOTE | 2024-11-10 12:09 | W.NUTRFU ---
Date of service: 11/10/24 Time of Service: 12:17 Nutrition Note NOTE: Visited with Susanne due to lower weight/BMI. Low appetite/fair intake on average, but erratic per dietary aids who pass her trays. Discharge anticipated today - have been offering high protein/kcal ONS with limited acceptance. Encouraged nutrient dense, high protein food choices and attempting to eat 6 times/day with small amounts, using ONS if needed/desired. Offered outpatient contact as susanne would benefit from services to help improve nutrition intake d/t chronic malnourishment related to extensive PMH/chronic conditions. Time Spent in Nutritional Counseling and Treatment: 5 min
[2024-11-10] MEDS: Nicotine 21 MG/24 HR PATCH TD (12:16)
--- NOTE | 2024-11-10 13:48 | NUR.NOTE ---
Nursing Note: Kayla is AOx4, VS documented 1LNC, see flowcharts. Walk test done without O2, O2 stat dropped to high 70's and pt reported lightheaded. Provider notified. Recovered to goal with 1LNC. Pt was assisted safety back to bed. Walk test with supplemental O2 was refused by pt. Education was provided with returnfeed back, AMA paperwork was signed. Provider aware, care management notified.
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
--- NOTE | 2024-11-11 14:52 | NUR.NOTE ---
Access chart to reconcile EKG orders with EKG's in [facility]. Duplicate order cancelled. Nursing Note:
== END 2024-11-10 14:54 | disposition left against medical advice (07) | DRG 190 ==
LOC: ER 22:15 → MS 23:46
PROVIDERS: Admitting Provider Family Medicine; Emergency Provider Nurse Practitioner Family; PCP Family Medicine; Responsible Provider Family Medicine; Visit Provider Family Medicine
DX: J44.1 Chronic obstructive pulmonary disease with (acute) exacerbation (principal); J96.21 Acute and chronic respiratory failure with hypoxia; N30.00 Acute cystitis without hematuria; E83.42 Hypomagnesemia; F17.210 Nicotine dependence, cigarettes, uncomplicated; I10 Essential (primary) hypertension; I27.20 Pulmonary hypertension, unspecified; E03.9 Hypothyroidism, unspecified; J44.0 Chronic obstructive pulmonary disease with (acute) lower respiratory infection; J21.9 Acute bronchiolitis, unspecified; E87.1 Hypo-osmolality and hyponatremia; Z59.19 Other inadequate housing; E46 Unspecified protein-calorie malnutrition; Z68.1 Body mass index [BMI] 19.9 or less, adult; E78.5 Hyperlipidemia, unspecified; I25.2 Old myocardial infarction; Z79.899 Other long term (current) drug therapy; Z66 Do not resuscitate; N39.46 Mixed incontinence; R91.1 Solitary pulmonary nodule; R26.89 Other abnormalities of gait and mobility; F10.26 Alcohol dependence with alcohol-induced persisting amnestic disorder; E53.8 Deficiency of other specified B group vitamins; D64.9 Anemia, unspecified; I73.9 Peripheral vascular disease, unspecified; G62.9 Polyneuropathy, unspecified
CPT/HCPCS: 00123; 36415; 74177; 80053; 80307; 82805; 85027; 87040; 87077; 87637; 93005; 94640; 94761; 96361; 96365; 96375; 99285; 71260; 80320; 81003; 81015; 83605; 83735; 83880; 84443; 84484; 85025; 85610; 87086; 93010; 94760; 99223; 99239; J0696; J1650; J2919; J3490; J7512; J7620

== ENCOUNTER 2024-12-09 10:50 | Outpatient (CLI) | payer MEDICARE, MEDICAID, SELFPAY ==
[2024-12-09 11:09] LABS: Anion Gap 12.5 mmol/L (3-11); BUN 6 mg/dL (7-18); CO2 32.5 mmol/L (21.0-32.0); Calcium 9.8 mg/dL (8.5-10.1); Chloride 86 mmol/L (98-107); Estimated GFR 103.38 (mL/min/1.73m2); Glucose 84 mg/dL (74-106); Magnesium 1.7 mg/dL (1.8-2.4); Potassium 3.8 mmol/L (3.5-5.1); Sodium 131 mmol/L (136-145); TSH (W/Ref FT4) 3.68 uIU/mL (0.36-3.74)
== END 2024-12-09 10:51 | disposition home or self-care (01) ==
LOC: LBO 10:50
PROVIDERS: PCP Family Medicine; Visit Provider Family Medicine
DX: E03.9 Hypothyroidism, unspecified (principal); E83.42 Hypomagnesemia
CPT/HCPCS: 36415; 80048; 83735; 84443

== ENCOUNTER 2024-12-09 11:08 | Outpatient (REF) | payer MEDICARE, MEDICAID, SELFPAY | END 2024-12-09 11:09 | disposition home or self-care (01) | LOC: LBN 11:08 | PROVIDERS: PCP Family Medicine; Visit Provider Family Medicine | DX: N30.00 Acute cystitis without hematuria (principal) | CPT/HCPCS: 87077; 87086; 87186 ==

== ENCOUNTER 2025-01-13 16:39 | Outpatient (REF) | payer MEDICARE, MEDICAID, SELFPAY ==
[2025-01-13 17:50] LABS: Glucose Negative (Negative)
[2025-01-13 18:01] LABS: C & S Indicated? Yes; RBC >50 HPF (0-2); WBC >50 HPF (0-5)
== END 2025-01-13 16:40 | disposition home or self-care (01) ==
LOC: NCHCN 16:39
PROVIDERS: PCP Family Medicine; Visit Provider Family Medicine
DX: R30.0 Dysuria (principal); R82.89 Other abnormal findings on cytological and histological examination of urine
CPT/HCPCS: 81003; 81015; 87086

== ENCOUNTER → 2025-03-10 10:55 | Outpatient (BNVA) | payer MEDICARE, MEDICAID, SELFPAY | PROVIDERS: PCP Family Medicine; Referring Provider Family Medicine; Visit Provider Student in an Organized Health Care Education/Training Program | DX: R11.12 Projectile vomiting (principal) | CPT/HCPCS: 99213 ==

== ENCOUNTER 2025-03-20 10:13 | Day surgery (SDC) | payer MEDICARE, MEDICAID, SELFPAY ==
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
[2025-03-20 10:58] VITALS: BP 128/84; PULSE 70; RESP 20; TEMP 36.1; O2SAT 90
[2025-03-20] MEDS: Lactated Ringers 1,000 ML 80 ML IV (11:05)
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
[2025-03-20 13:07] VITALS: BMI 14.6
--- NOTE | 2025-03-20 13:53 | BOWEL_PTH ---
PATIENT: Kayla Leon LOC: [facility] U#:[id number] AGE/SX: 64/F ROOM: RE03/20/[address]: Lamar Alvarez : 1960 BED: DIS: 03/20/2025 SPEC #: [id number] RECD: 03/20/25 15:44 STATUS: MITZI RE #: [id number] BAKARI: 03/20/25 13:[address]: Lamar Alvarez DEPT: Surgical Specimen RECD BY: Marilee Tierney ENTERED: 03/20/25 15:45 SP TYPE: Bowel OTHR DR: Chidi Mccormack DO Tissues: 1 - BIOPSY BOWEL 2 - STOMACH BIOPSY 3 - ESOPHAGUS BIOPSY Procedures: GROSS AND MICRO LEVEL 4 Comments: [id number]
--- NOTE | 2025-03-20 14:04 | W.PM.DSUDISC ---
Date of service: 03/20/25 Discharge Plan Disposition Patient Disposition: Home Condition: Good Discharge Details Reason For Visit: Vomitting Attending Provider: Lamar Alvarez Primary Care Provider: Chidi Mccormack Recommendations for Follow Up Recommended tests to be ordered by follow up provider: Follow up pathology results Home Meds and New Rx's Prescriptions: Continued diphenhydramine HCl [Benadryl Allergy] 25 mg tablet 25 mg PO TID PRN ferrous sulfate 325 mg (65 mg iron) tablet 325 mg PO .every other day atenolol 100 mg tablet 100 mg PO DAILY Qty: 90 3RF atorvastatin 20 mg tablet 20 mg PO QHS Qty: 90 3RF acetaminophen 500 mg tablet 1,000 mg PO Q6H PRN (Reason: fever or pain) Qty: 360 3RF aspirin 81 mg tablet,delayed release (DR/EC) 81 mg PO DAILY (DME) diaper,brief,adult,disposable Misc See Rx Instructions .MEDSUPPLY Qty: 240 11RF Rx Instructions: small pull-up brief 8/day (DME) underpads 23 X 24 pad See Rx Instructions .Route Qty: 150 11RF Rx Instructions: chux- 5 disposable daily. gabapentin 300 mg capsule 300 mg PO TID PRN (Reason: Nerve pain) Qty: 270 3RF levothyroxine 88 mcg tablet See Rx Instructions .ROUTE .COMPLEX Qty: 90 3RF Dose Instruction: TAKE ONE TABLET BY MOUTH EVERY DAY Rx Instructions: TAKE ONE TABLET BY MOUTH EVERY DAY albuterol sulfate 2.5 mg /3 mL (0.083 %) solution for nebulization 2.5 mg inhalation Q6H PRN (Reason: SOB/wheezing) Qty: 180 0RF Rx Instructions: shortness of breath or wheezing Use 1 nebulizer 4 times daily as needed for shortness of breath or wheezing. J44.9 COPD albuterol sulfate 90 mcg/actuation HFA aerosol inhaler See Rx Instructions .ROUTE .COMPLEX Qty: 8.5 3RF Dose Instruction: INHALE TWO PUFFS BY MOUTH EVERY 6 HOURS NEEDED FOR SHORTNESS OF BREATH OR WHEEZING Rx Instructions: INHALE TWO PUFFS BY MOUTH EVERY 6 HOURS NEEDED FOR SHORTNESS OF BREATH OR WHEEZING albuterol sulfate [Ventolin HFA] 90 mcg/actuation Hfa Aerosol Inhaler 2 puff inhalation DISPENSE Qty: 6.7 0RF Discharge Instructions Additional Instructions: Your upper endoscopy went well today. You had evidence of some irritation of the stomach, a hiatal hernia and some evidence of reflux changes. Some biopsies were taken during the procedure and we will contact you once these results return. If you have any questions or concerns please contact the general surgery office. 1. Do not drive, drink alcohol, operate machinery, make critical decisions, or do activities that require coordination or balance for 24 hours. 2. Because air was put into your stomach during the procedure, expelling air or burpig is normal. 3. Go directly to the emergency room if you notice any of the following: Develop chills (warm to touch), or if you have a thermometer and your temperature is above 101 Difficulty breathing or difficultly swallowing Persistent vomiting Severe abdominal pain, other than gas cramps Severe chest pain Black, tarry stools Any bleeding – exceeding one tablespoon 4. Call your physician if the site where your intravenous was started becomes red, swollen, painful, and warm to touch. 5. Your physician has reviewed your pre-procedure medications. Please continue to take those medications as previously ordered. You will be given specific information/education regarding any changes to your medications before leaving. Stand Alone Forms: Portal Information Activity:: Activity as Tolerated Diet:: As Tolerated Discharge Orders Discharge Orders: Discharge Order (Routine); Ordered 03/20/25 Ordered By: Lamar Alvarez
[2025-03-20 14:08] VITALS: BP 98/59; PULSE 76; RESP 20; TEMP 36.5; O2SAT 91
--- NOTE | 2025-03-20 14:14 | W.PM.ENDDOP ---
Date of service: 03/20/25 Time of Service: 14:14 Endoscopy Report DATE OF PROCEDURE: 03/20/25 PRE-OP DIAGNOSIS: Vomitting POST-OP DIAGNOSIS: same PROCEDURE: Upper endoscopy with biopsies SURGEON: Lamar Alvarez ANESTHESIA TYPE: General:No Airway ESTIMATED BLOOD LOSS: 1 PATHOLOGY: other (Duodenum, antrum, GE junction) COMPLICATIONS: None DISPOSITION: PACU INDICATIONS: Patient is a 64 yo female who presents for an upper endoscopy given ongoing vomitting. FINDINGS: Evidence of gastritis. Hiatal hernia without other concerning findings. Irregular GE junction. Biopsy of duodenum, antrum, and GE junction performed with cold forceps. PROCEDURE DESCRIPTION: After adequate sedation, the upper endoscope was inserted and advanced in the duodenum under direct visualization. The scope was withdrawn and the mucosa inspected. The duodenum appeared normal and a cold forcep biopsy was performed. The stomach had evidence of gastritisl with no evidence of ulcerations or erosions. The antrum area was biopsied and also checked for H. pylori. Retroflexion view in the stomach showed a hiatal hernia. At the lower esophagus Z line area, this was inspected and noted to be irregular. Cold forcep biopsy of the GE was performed to rule out Doran's esophagus. No evidence of strictures. Otherwise, the esophagus was normal. The scope was completely withdrawn from the patient. The patient tolerated the procedure well with no immediate complications.
--- NOTE | 2025-03-20 14:16 | W.ANESPOSTOP ---
Postoperative Evaluation Date, Time and Location Date Performed: 03/20/25 Time Performed: 14:17 Patient Location: Day Surgery Unit Vital Signs Most Recent Imported Vital Signs: Most Recent Vital Signs Temp Pulse Resp BP Pulse Ox 36.1 C L 70 20 128/84 90 L 03/20/25 10:58 03/20/25 10:58 03/20/25 10:58 03/20/25 10:58 03/20/25 10:58 Assessment Mental Status: Awake (Alert & Oriented to Patient Baseline) Airway and Respiratory Function: Patent airway with normal (patient baseline) respiratory exam Cardiovascular Function: Hemodynamically Stable Hydration Status: Adequately Hydrated Nausea & Vomiting: No Nausea or Vomiting Pain: Pt. Denies Any Pain Peripheral Nerve Block: Patient did not receive a nerve block
[2025-03-20 14:29] VITALS: BP 133/72; PULSE 71; RESP 20; TEMP 36.5; O2SAT 92
== END 2025-03-20 15:15 | disposition home or self-care (01) ==
PROVIDERS: PCP Family Medicine; Visit Provider Student in an Organized Health Care Education/Training Program
PROC: 0DJ68ZZ Inspection of Stomach, Via Natural or Artificial Opening Endoscopic (ICD-10-PCS; CPT 43235; principal; 2025-03-20 12:00)
DX: R11.10 Vomiting, unspecified (principal); J44.9 Chronic obstructive pulmonary disease, unspecified; K29.70 Gastritis, unspecified, without bleeding; K44.9 Diaphragmatic hernia without obstruction or gangrene; D13.2 Benign neoplasm of duodenum; K22.89 Other specified disease of esophagus
CPT/HCPCS: 43239; 88305; J2405; J2704

== ENCOUNTER 2025-04-25 10:45 | Observation (INO) | payer MEDICARE, MEDICAID, SELFPAY ==
[2025-04-25] VITALS (8 sets, daily range): BP systolic 127–206; BP diastolic 73–107; PULSE 70–81; RESP 14–18; TEMP 36.5–37.2; O2SAT 87–92
--- NOTE | 2025-04-25 10:45 | RT.EKG_ITS ---
APPROVED REPORT Exam: Resting ECG Reason for Exam: ?syncope Patient Location: E HR:73 bpm ECG Measurements Heart Rate 73 AXIS UT 148 P 60 QRSd 75 QRS 66 QT 394 T 89 QTc 434 Conclusion Sinus rhythm...normal P axis, V-rate 60- 99 Consider left ventricular hypertrophy...(R aVL+S V3) >2.20mV
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
[2025-04-25 11:27] LABS: Abs Immature Grans 0.04 10^3/uL (0.0-0.06); HCT 37.3 % (36.0-46.0); HGB 13.2 g/dL (11.2-15.7); Immature Grans % 0.4 %; MCH 36.8 pg (27.0-33.0); MCHC 35.4 % (32.0-36.0); MCV 104 fL (80-95); MPV 9.7 fL (8.0-11.0); Platelet Count 181 10^3/uL (130-400); RBC 3.59 10^6/uL (3.93-5.22); RDW 12.1 % (11.7-14.6); RDW-SD 46.4 fL; WBC 9.60 10^3/uL (4.4-10.8)
--- NOTE | 2025-04-25 11:34 | DI.RAD_ITS ---
Exam(s) XR PELVIS AP XR FEMUR LT EXAM: XR PELVIS AP CLINICAL HISTORY: pain s/p fall. TECHNIQUE: 2D digital imaging was performed. AP view of the pelvis. AP and lateral views of the left femur. COMPARISON: CR,XR XR FEMUR LT from 04/25/2025 FINDINGS: BONES: There are mildly displaced fractures of the left superior and inferior pubic rami. No additional fractures are identified in the pelvis or in the left femur. The sacrum is mainly obscured by overlying bowel gas and stool. No bony destructive lesion is seen. JOINTS: No dislocation present. No joint space narrowing is present. SOFT TISSUE: Severe vascular calcifications. Suture material in pelvis. IMPRESSION: Mildly displaced fractures of the left superior and inferior pubic rami. The preliminary [facility] report was reviewed. DATA REPOSITORY: RADIATION DOSE DELIVERED:
[2025-04-25 11:37] LABS: Troponin I 3 ng/L (<35)
[2025-04-25 11:40] LABS: INR 1.0 (0.9-1.1); Magnesium 1.5 mg/dL (1.6-2.6); PTT Activated 25.7 sec (20.6-30.2); Prothrombin Time 9.8 sec (9.1-11.1)
[2025-04-25 11:41] LABS: ALT 14 U/L (10-49); AST 25 U/L (<34); Albumin 4.3 g/dL (3.2-5.0); Alkaline Phosphatase 71 U/L (46-116); Anion Gap 9.5 mmol/L (3-11); BUN 8 mg/dL (9-23); Bilirubin, Total 1.0 mg/dL (0.2-1.2); CO2 27.1 mmol/L (20.0-31.0); Calcium 9.1 mg/dL (8.3-10.6); Chloride 95 mmol/L (98-107); Glucose 105 mg/dL (74-106); Potassium 4.1 mmol/L (3.5-5.1); Sodium 132 mmol/L (136-145); Total Protein 6.8 g/dL (5.7-8.2)
--- NOTE | 2025-04-25 11:43 | DI.[facility]_ITS ---
PROCEDURE INFORMATION: Exam: XR Pelvis Exam date and time: 04/25/2025 11:30 AM Age: 64 years old Clinical indication: Injury or trauma; Fall TECHNIQUE: Imaging protocol: Radiologic exam of the pelvis. Views: 1 or 2 view. COMPARISON: CT CHEST/ABD/PEL W 11/09/2024 7:00 PM FINDINGS: Bones/joints: Displaced fracture of the left superior pubic rami. The fracture is displaced 6 mm. Mildly displaced fracture of the inferior pubic ramus. No diastasis of the pubic symphysis. No evidence of hip fractures. Soft tissues: See Bones/joints finding. IMPRESSION: Fracture through the left superior and inferior pubic rami. Dictated and Authenticated by: Khoi Jacob MD. Orderin Robbi Arevalo MD
--- NOTE | 2025-04-25 11:43 | DI.VRAD_ITS ---
PROCEDURE INFORMATION: Exam: XR Left Femur Exam date and time: 04/25/2025 11:25 AM Age: 64 years old Clinical indication: Injury or trauma; Fall TECHNIQUE: Imaging protocol: Radiologic exam of the left femur. Views: 2 views. COMPARISON: CT CHEST/ABD/PEL W 11/09/2024 7:00 PM FINDINGS: Bones/joints: Displaced fracture of the left superior and inferior pubic rami. The left hip and femur appear intact. Soft tissues: Unremarkable. Vasculature: Vascular calcifications. IMPRESSION: Displaced fractures of the left superior and inferior pubic rami. Dictated and Authenticated by: Khoi Jacob MD. Orderin Robbi Arevalo MD
[2025-04-25 12:54] LABS: Troponin I 4 ng/L (<35)
[2025-04-25] MEDS: Nicotine 21 MG/24 HR PATCH TD (14:14)
[2025-04-25] MEDS: Ibuprofen 600 MG TAB PO (14:14)
[2025-04-25] MEDS: Gabapentin 300 MG CAP PO ×2 (14:14→20:25)
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
--- NOTE | 2025-04-25 15:12 | W.PC.ACHO ---
Registration Status: REG ER Primary Language: Preferred Language: Faroese ED Information & Data Chief Complaint Fall/Non TraumaCriteria 04/25/25 11:15 Chief Complaint Fall/Non TraumaCriteria 04/25/25 11:05 Other Complaint Orthopedic 04/25/25 10:48 Triage Note pt fell last night, woke u 04/25/25 10:48 today w/ extreme L hip/ buttock pain. pt states she really doesnt remember the fall but believes she did not strike head and has no pain in head or neck Medical / Surgical History (Last Reviewed 03/20/25 @ 10:59 by Mckenzie Thompson, HENNA) UTI (urinary tract infection) Mild cognitive impairment Hyperlipidemia (08/21/12) Diverticulitis Palliative care patient Hypothyroidism (Last Updated 03/23/25 @ 10:46 by Tracy Bonner) History of esophagogastroduodenoscopy (~03/20/25) S/P colectomy (12/26/18) Most Recent Vital Signs Temperature 36.8 C 04/25/25 10:59 Temperature Source Oral 04/25/25 10:59 Pulse 72 04/25/25 14:48 Respiratory Rate 16 04/25/25 10:48 Blood Pressure 140/90 04/25/25 14:48 Blood Pressure Mean 106 04/25/25 14:48 Pulse Oximetry 92 04/25/25 14:48 Oxygen Delivery Method Room Air 04/25/25 10:59 Oxygen Flow Rate 0 04/25/25 10:59 Pain Level 10 04/25/25 10:48 Comment hx COPD 04/25/25 10:48 Allergies hydrochlorothiazide Allergy (Severe, Verified 04/21/25 09:45) RASH morphine Allergy (Severe, Verified 04/21/25 09:45) stops breathing STOPS BREATHING hydralazine Allergy (Intermediate, Verified 04/21/25 09:45) rash reserpine Allergy (Intermediate, Verified 04/21/25 09:45) rash simvastatin Allergy (Intermediate, Verified 04/21/25 09:45) rash Penicillins Allergy (Unknown, Verified 04/21/25 09:45) unknown ezetimibe Adverse Reaction (Intermediate, Verified 04/21/25 09:45) Skin Rash adhesive tape Adverse Reaction (Verified 04/21/25 09:45) itching, redness under iv dressing. [facility] note dated 01/10/19 CANNABINOID Allergy (Unknown, Uncoded 04/21/25 09:45) Swelling/Edema losartan Adverse Reaction (Intermediate, Uncoded 04/21/25 09:45) Skin Rash Precautions Isolation Standard precaution 04/25/25 11:15 IV IV Catheter Type [Right Saline Lock Antecubital] IV Catheter Gauge [Right 10 Antecubital] Diagnostics 04/25/25 04/25/25 04/25/25 Range/Units 13:58 12:24 11:10 WBC 9.60 (4.4-10.8) 10^3/uL RBC 3.59 L (3.93-5.22) 10^6/uL Hgb 13.2 (11.2-15.7) g/dL Hct 37.3 (36.0-46.0) % MCV 104 H (80-95) fL MCH 36.8 H (27.0-33.0) pg MCHC 35.4 (32.0-36.0) % RDW 12.1 (11.7-14.6) % Plt Count 181 (130-400) 10^3/uL MPV 9.7 (8.0-11.0) fL Immature Gran % 0.4 % Neutrophils % 80.7 % Lymphocytes % 6.1 % Monocytes % 10.3 % Eosinophils % 2.1 % Basophils % 0.4 % Nucleated RBC % 0.0 (0.0-0.3) % Absolute Neutrophils 7.74 H (1.2-6.7) 10^3/uL Absolute Lymphocytes 0.59 L (1.2-3.4) 10^3/uL Absolute Monocytes 0.99 H (0.1-0.8) 10^3/uL Absolute Eosinophils 0.20 (0.0-0.7) 10^3/uL Absolute Basophils 0.04 (0.0-0.2) 10^3/uL PT 9.8 (9.1-11.1) sec INR 1.0 (0.9-1.1) APTT 25.7 (20.6-30.2) sec Sodium 132 L (136-145) mmol/L Potassium 4.1 (3.5-5.1) mmol/L Chloride 95 L (98-107) mmol/L Carbon Dioxide 27.1 (20.0-31.0) mmol/L Anion Gap 9.5 (3-11) mmol/L BUN 8 L (9-23) mg/dL Creatinine 0.40 L (0.55-1.02) mg/dL Est GFR (CKD-EPI 2020) 159.28 (mL/min/1.73m2) Glucose 105 (74-106) mg/dL Calcium 9.1 (8.3-10.6) mg/dL Magnesium 1.5 L (1.6-2.6) mg/dL Total Bilirubin 1.0 (0.2-1.2) mg/dL AST 25 (<34) U/L ALT 14 (10-49) U/L Alkaline Phosphatase 71 (46-116) U/L Troponin I Pending 4 3 (<35) ng/L Total Protein 6.8 (5.7-8.2) g/dL Albumin 4.3 (3.2-5.0) g/dL Intake and Output - 24 Hour Total 04/25/25 10:38 thru 04/25/25 10:48 Weight 35 kg Falls Risk Assessment History of Falls Admit Due to Fall 04/25/25 11:15 Contributing Factors Confusion,Unstable 04/25/25 11:15 Ambulatory Aids Independent 04/25/25 11:15 Tubes/Lines None 04/25/25 11:15 Gait Evaluation No gait disturbance 04/25/25 11:15 Cognition Cognitive impairment 04/25/25 11:15 Fall Total Score 46 04/25/25 11:15 Level of Risk Moderate Risk 04/25/25 11:15 Attestation Statement: By documenting the first initial, last name, and credentials of the reporting nurse below, both parties acknowledge that all relevant information regarding the patient handoff has been communicated, and that all questions have been addressed to ensure continuity and safety of care. Additional Patient Information/Comments: Report Received From: called for report at 15:07, paged at 14:47; Report received from Jessy. SBAR report given , no questions.
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
--- NOTE | 2025-04-25 16:09 | PDOC.CMPRO ---
Date of service: 04/25/25 Time of Service: 16:09 Care Management Progress Note Progress Note Text Progress Note Text: CM was asked by the ED provider to see Kayla in the ED, as both he and Kayla's care provider had concerns about her returning home. Kayla fell and fractured her pelvis in 2 places. She has a fair amount of pain and her caregiver is concerned that she may not be able to safely ambulate. CM spoke to Kayla who is well known to her from previous admissions. CM explained our concerns and suggested that Kayla agree to stay for just one night, to start with. She will be given pain medicine and work with PT. Kayla agreed and so will be admitted in Observation status, at least until tomorrow. Her caregiver was very supportive of the plan and promised Kayla she could come home as soon as she is safe to do so. Discharge Potential Discharge Needs: PCP F/U Appt Anticipated Barriers to Discharge: Medical Status Patient/Family Education Needs: Review discharge instructions, discuss Ask Me Three Transportation: Private vehicle Plan: Kayla will likely return home, possibly with new home health services, when medically stable. She will follow up with her PCP and plan of care anmd transport with her caregiver. CM will follow and continue to assess for discharge needs. Social Determinants of Health Screening Social Determinants of health last assessed in clinic: 04/26/25 Will the Patient Participate in the Screening?: Yes Do you worry about having a steady place to live?: no Problems where you live: no known problems In the past 12 months, have you had to go without electric, gas, oil or water in your home?: no 1. Within the past 12 months, we worried whether our food would run out before we got money to buy more.: Never true 2. Within the past 12 months, the food we bought just didn't last and we didn't have money to get more.: Never true Has lack of transportation kept you from medical appointments or from doing things needed for daily living?: no Has anyone in your life made you feel unsafe or unsupported?: no How hard is it for you to pay for the very basics like food, housing, medical care, and heating? Would you say it is:: Not hard at all Do you want help finding or keeping work or a job?: I do not need or want help If for any reason you need help with day-to-day activities such as bathing, preparing meals, shopping, managing finances, etc., do you get the help you need?: I don?t need any help How often do you feel lonely or isolated from those around you?: Never Do you speak a language other than [place]ese at home?: No Does the patient want assistance with any of the above?: No
[2025-04-25] MEDS: Enoxaparin 30 MG/0.3 ML SYR SC (17:50)
[2025-04-25] MEDS: Acetaminophen 325 MG TAB 650 MG PO (18:20)
[2025-04-25] MEDS: Ketorolac 15 MG/ML VIAL IVP (18:20)
[2025-04-25] MEDS: Atorvastatin 20 MG TAB PO (20:25)
[2025-04-25] MEDS: Normal Saline Flush 10 ML SYR IVP (20:25)
[2025-04-25] MEDS: diphenhydrAMINE 25 MG CAP PO (20:25)
[2025-04-25] MEDS: Atenolol 50 MG TAB 100 MG PO (20:31)
[2025-04-26 02:53] VITALS: BP 139/66; PULSE 70; RESP 15; TEMP 36.2; O2SAT 98
[2025-04-26] MEDS: Ketorolac 15 MG/ML VIAL IVP (03:39)
[2025-04-26] MEDS: Acetaminophen 325 MG TAB 650 MG PO ×2 (03:40→10:04)
[2025-04-26] MEDS: MAGNESIUM SULFATE 2 GM/50 ML BAG IV_INF (03:41)
[2025-04-26 04:04] VITALS: O2SAT 88
[2025-04-26 05:26] VITALS: O2SAT 90
[2025-04-26] MEDS: Levothyroxine 88 MCG TAB PO (06:05)
[2025-04-26 06:23] VITALS: O2SAT 88
[2025-04-26] MEDS: Albuterol HFA 8 GM 60 PUFF INH IH (06:38)
[2025-04-26 06:52] LABS: Abs Immature Grans 0.01 10^3/uL (0.0-0.06); HCT 33.8 % (36.0-46.0); HGB 11.7 g/dL (11.2-15.7); Immature Grans % 0.2 %; MCH 36.3 pg (27.0-33.0); MCHC 34.6 % (32.0-36.0); MCV 105 fL (80-95); MPV 10.3 fL (8.0-11.0); Platelet Count 147 10^3/uL (130-400); RBC 3.22 10^6/uL (3.93-5.22); RDW 12.4 % (11.7-14.6); RDW-SD 48.7 fL; WBC 6.16 10^3/uL (4.4-10.8)
[2025-04-26 07:21] LABS: Anion Gap 9.4 mmol/L (3-11); BUN 29 mg/dL (9-23); CO2 28.2 mmol/L (20.0-31.0); Calcium 9.1 mg/dL (8.3-10.6); Chloride 93 mmol/L (98-107); Glucose 165 mg/dL (74-106); Potassium 3.9 mmol/L (3.5-5.1); Sodium 131 mmol/L (136-145)
[2025-04-26 07:34] VITALS: BP 149/75; PULSE 66; RESP 18; TEMP 36.6; O2SAT 94
[2025-04-26 07:47] LABS: Magnesium 2.7 mg/dL (1.6-2.6)
[2025-04-26] MEDS: Normal Saline Flush 10 ML SYR IVP (09:13)
[2025-04-26] MEDS: Aspirin E.C. 81 MG TABEC PO (09:14)
[2025-04-26] MEDS: Omeprazole 20 MG CAPCR PO (09:14)
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
[2025-04-26] MEDS: Ketorolac 10 MG TAB PO (10:34)
[2025-04-26 10:40] VITALS: BP 144/80; PULSE 65; RESP 18; TEMP 36.6; O2SAT 94
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
--- NOTE | 2025-04-26 12:50 | PDOC.HHF2F ---
Date of service: 04/26/25 Time of Service: 12:50 Home Health Referral Home Health Orders Clinical synopsis of why skilled professionals are needed: This is a 64-year-old female admitted following an unwitnessed fall resulting in a left superior pubic ramus fracture. Imaging confirmed a stable pelvic fracture, and Orthopedics (Dr. Bell) recommended nonoperative management with weight bearing as tolerated. Cardiac evaluation including ECG and serial troponins was unremarkable. Pain was managed conservatively, as the patient declined additional analgesia. She worked with Physical Therapy during admission. PT evaluated gait and mobility and recommends discharge with a rolling walker and home health physical therapy for continued strengthening, gait training, and fall risk reduction. The patient initially declined admission and services but is now agreeable to home services and safe discharge planning. Chronic conditions including COPD, hypertension, and hypothyroidism remained stable during hospitalization. Discharge Disposition: Home with Home Health Physical Therapy Discharge Equipment: Rolling walker Activity: Weight bearing as tolerated with assistive device Follow-Up: Primary care provider Orthopedics as outpatient Home Health PT to initiate within 48 hours of discharge Medical diagnosis necessitation home health referral: Fractured pelvis Physical Therapist: Check all that apply Increase strength & endurance for safe mobility at home: Ordered To design/establish home maintenance program: Ordered Fall reduction therapy program for patient with history of frequent falls: Ordered Home safety evaluation and teaching/gait training including stair management (if applicable): Ordered Occupational Therapist: Evaluate and treat for patient unable to perform ADL/IADL/self-care: Ordered Upper extremity strengthening, range and motion: Ordered Willow Machine Operator: Assist with community resources: Ordered Assist with senior living care planning: Ordered Home Bound Status Requires the aid of supportive device (check all that apply): Walker Assistance of another person (Describe assistance and medical necessity): Fractured pelvis; requires assistance with one person and assistive device Describe why leaving home would require a considerable and taxing effort: Requires frequent rest periods Encounter Date and Reason: I certify that a FTF encounter for this patient was performed on April 26, 2025 and that such encounter was related to the primary reason the patient requires home health services. The encounter was conducted in the following manner: By me as the certifying physician, SOCIAL ORGANIZATION PROFESSOR, PA or By an inpatient physician, SOCIAL ORGANIZATION PROFESSOR or PA during an inpatient stay who communicated findings to me, Certification And Authentication I certify that I composed the above information based on my clinical judgment relating to this patient's medical condition and, if applicable, clinical findings communicated to me by the NPP or inpatient physician who performed the FTF encounter. Name of Provider that will be monitoring home health services: Chidi Mccormack
== END 2025-04-26 13:54 | disposition home health service (06) ==
LOC: ER 14:17 → MS 15:25
PROVIDERS: Admitting Provider Family Medicine; Emergency Provider Emergency Medicine; PCP Family Medicine; Responsible Provider Nurse Practitioner Family; Visit Provider Family Medicine
DX: S32.512A Fracture of superior rim of left pubis, initial encounter for closed fracture (principal); S32.592A Other specified fracture of left pubis, initial encounter for closed fracture; I10 Essential (primary) hypertension; W19.XXXA Unspecified fall, initial encounter; E03.9 Hypothyroidism, unspecified; K22.70 Barrett's esophagus without dysplasia; R91.1 Solitary pulmonary nodule; F17.210 Nicotine dependence, cigarettes, uncomplicated; R09.02 Hypoxemia; F10.90 Alcohol use, unspecified, uncomplicated; R26.81 Unsteadiness on feet; I27.20 Pulmonary hypertension, unspecified; I25.2 Old myocardial infarction; Z66 Do not resuscitate; Z59.9 Problem related to housing and economic circumstances, unspecified; F10.96 Alcohol use, unspecified with alcohol-induced persisting amnestic disorder; E83.42 Hypomagnesemia; E53.8 Deficiency of other specified B group vitamins; D64.9 Anemia, unspecified; G62.9 Polyneuropathy, unspecified; E46 Unspecified protein-calorie malnutrition; Z79.899 Other long term (current) drug therapy; J44.9 Chronic obstructive pulmonary disease, unspecified
CPT/HCPCS: 00123; 36415; 73552; 80048; 80053; 93005; 94640; 97116; 97161; 99222; 99285; 72170; 83735; 84484; 85025; 85610; 85730; 93010; 94664; 99223; 99239; G0378; J1650; J1885; J3475